=== PATIENT | male | born 1945 | race Caucasian/White ===

== ENCOUNTER → 2023-10-03 07:34 | Outpatient (REF) | payer MEDICARE, OTHER, SELFPAY | LOC: DHCBC/DCA 07:34 | PROVIDERS: ATTENDING PHYSICIAN Nurse Practitioner; FAMILY PHYSICIAN Family Medicine | DX: I25.10 Atherosclerotic heart disease of native coronary artery without angina pectoris (principal) | CPT/HCPCS: 78452; 93017; A9500; J2785 ==

== ENCOUNTER 2023-11-11 10:22 | Emergency (ER) | payer MEDICARE, OTHER, SELFPAY ==
[2023-11-11 10:24] VITALS: BP 128/88
--- NOTE | 2023-11-11 10:57 | ED.GENMED ---
History of Present Illness
General
Chief Complaint: Chest Pain
Time Seen by Provider: 11/11/23 10:23
Travel History
Have you had any contact with someone who has COVID-19?: No
Do you have any symptoms of coronavirus? Fever > 100 degrees, chills, cough, shortness of breath, sore throat, loss of taste or smell, muscle aches, or headache?: No
History of Present Illness
History of Present Illness:
78-year-old male with history of coronary artery disease (stent last placed in 2011) COPD, A-fib on Xarelto, hypertension, hyperlipidemia presents to the emergency department for evaluation of acute left-sided chest pain developing approximately 90
minutes prior to arrival. Pain is rated as severe, resolved after taking 1 dose of nitroglycerin and 324 mg of aspirin. Patient is asymptomatic.
Denies any recent fevers or chills. No shortness of breath, leg swelling, or chest pain with exertion. He did have a nuclear stress test performed in early September that was unremarkable for ischemia.
Past History
Past History
ED Past Medical History: Arrthythmia, CAD, HTN, Hypercholesterolemia, NIDDM and Other
ED Past Surgical History: Orthopedic and Other
Social History
Personal:
Living: with family
Review of Systems
Review of Systems
Allergies reviewed?: Yes
All Other Systems: ROS reviewed and negative except as documented in HPI and ROS
Phy Exam
Physical Exam
Physical Exam:
GEN: Well appearing, NAD, WDWN
Eyes: PERRLA, EOMs intact, no scleral icterus
HENT: NCAT, oral mucosa moist, no JVD, no cervical adenopathy.
Lungs: CTAB, no wheezes, rales, rhonchi, normal chest wall excursion
Cardiac: RRR, no M/R/G, 3+ pitting edema bilaterally extremities. Radial pulses 2+ bilat
Abdomen: S, NT, ND, NABS, no masses or hepatosplenomegaly
Neuro: AO x 3
MSK: No gross deformity or ecchymosis.
Skin: No rashes, petechiae. Normal color, no pallor or jaundice.
Psych: Calm, cooperative, proper hygiene
Scores
Heart Score for Chest Pain Patients
STEMI patient?: No
History: Slightly or Non-Suspicious
ECG: Nonspecific Repolarization
Age: >/= 65 years
Risk Factors: >/= 3 Risk Factors or History of CAD
Troponin: </= Normal Limit
Heart Score for Chest Pain Patients: 5
Heart Score Risk: 20.3% MACE over next 6 weeks
Course
Orders/Labs/Results
Orders:
Orders
11/11/23 10:27
EKG [Electrocardiogram (*1)] Urgent
Reason for Study: Chest Pain
11/11/23 10:28
EKG- Treatment ONCE
CR Chest - 2 Views Urgent
Comment:
Reason For Exam: chest pain
11/11/23 10:55
BNP [NT-proBNP] Urgent
Complete Blood Count/With Diff Urgent
Comprehensive Metabolic Panel Urgent
Troponin I Urgent
11/11/23 13:57
Troponin I Routine
Abnormal Lab Results
11/11/23
10:55
RBC 3.52 L 10^6/uL
(4.70-6.10)
Hgb 11.3 L g/dL
(13.0-18.0)
Hct 34.7 L %
(39.0-52.0)
MCV 98.6 H fL
(80.0-94.0)
MCH 32.1 H pg
(27.0-31.0)
MCHC 32.6 L g/dL
(33.0-37.0)
RDW 17.9 H %
(11.5-14.5)
MPV 10.8 H fL
(7.4-10.4)
Abs Immat Gran (auto) 0.1 H 10^3/uL
(0-0.05)
Absolute Lymphs (auto) 1.1 L 10^3/uL
(1.2-3.4)
Immature Gran % 1.1 H %
(0-0.5)
Neutrophils % 78.6 H %
(42.2-75.2)
Lymphocytes % 16.9 L %
(20.5-51.1)
Carbon Dioxide 31 H mmol/L
(22-30)
Glucose 150 H mg/dl
(70-99)
AST 142 H U/L
(17-59)
ALT 71 H U/L
(0-50)
Alkaline Phosphatase 154 H U/L
(38-126)
Total Protein 6.2 L g/dl
(6.3-8.2)
11/11/23 10:55
11/11/23 10:55
Vital Signs
Initial and Last Documented VS:
Initial Vital Signs
Temp Pulse Resp BP Pulse Ox
97.6 F 86 20 128/88 95
11/11/23 10:24 11/11/23 10:24 11/11/23 10:24 11/11/23 10:24 11/11/23 10:24
Last Documented Vital Signs
Temp Pulse Resp BP Pulse Ox
97.6 F 76 15 106/75 94
11/11/23 10:24 11/11/23 13:00 11/11/23 13:00 11/11/23 13:00 11/11/23 13:00
MDM/Problems Addressed
MDM/Problems Addressed:
78-year-old male presents with chest pain. Initial and repeat troponins as well as initial EKG are grossly unremarkable. The patient remained asymptomatic in the emergency department with no further measures administered. Is certainly reassuring
that he had a unremarkable stress test just over 1 month ago. Will refer him back to cardiology through the chest pain hotline for further ischemic workup as deemed appropriate.
Comment
Comment:
Initial EKG independently interpreted by me shows rate controlled atrial fibrillation at a rate of [address] changes concerning for ischemia, there is a right bundle branch block
*Critical Care Note
Total Time (30-74mins, 75-104mins- exclusive of procedures): Not Applicable
ED Attending Note
-
Portions of this chart may have been created with voice recognition software.� Occasional wrong word or��sound alike� substitutions may have occurred due to the inherent limitations of voice recognition software.
Discharge Plan
Departure
Patient Disposition: Home (Routine Discharge)
Date of Disposition: 11/11/23
Time of Disposition: 15:00
Patient with high blood pressure during this ER visit?: No
Discharge Problem:
Atypical chest pain
Instructions: Chest Pain CBC Follow Up
Prescriptions:
No Action
ascorbic acid (vitamin C) [Vitamin C] 1,000 MG tablet
1,000 mg PO QPM
tramadol 50 MG tablet
50 mg PO TID
nortriptyline 25 MG capsule
25 mg PO BID
prednisone 5 MG tablet
5 mg PO QPM
tamsulosin 0.4 MG capsule
0.4 mg PO HS
atorvastatin [Lipitor] 40 MG tablet
40 mg PO QPM
allopurinol 100 MG tablet
100 mg PO QPM
esomeprazole magnesium [Nexium] 20 MG capsule,delayed release(DR/EC)
20 mg PO DAILY
fluticasone propion-salmeterol [Advair Diskus] 1 DISK blister with device
1 puff inhalation R DAILY
finasteride 5 MG tablet
5 mg PO DAILY
metoprolol succinate [Toprol XL] 50 MG tablet extended release 24 hr
100 mg PO QPM
gabapentin [Neurontin] 800 MG tablet
800 mg PO TID
omega-3 acid ethyl esters [Lovaza] 1 GM capsule
1 gm PO TID
Xarelto 20 MG tablet
20 mg PO QPM Qty: 0 0RF
insulin glargine [Lantus U-100 Insulin] 100 UNIT/ML solution
62 unit SQ HS
lisinopril 20 MG tablet
10 mg PO HS
insulin lispro [Humalog KwikPen Insulin] 100 UNIT/ML insulin pen
34 unit SC ACHS
metformin 500 MG tablet
500 mg PO QPM
Patient Comments:
leucovorin calcium 10 mg Tablet
10 mg PO MO
aspirin 81 mg Tablet,Delayed Release (Dr/Ec)
81 mg PO QPM
methotrexate sodium 2.5 mg Tablet
12.5 mg PO SUMO
cephalexin 500 mg Capsule
500 mg PO BID
Rx Instructions:
patient [employer] on 04/07/2023 #20
cephalexin 500 mg capsule
1,000 mg PO TID 7 Days Qty: 42 0RF
Referrals:
Willie Robbins MD [Family Provider] -
Interventions
Interventions:
*Risk Screen - Suicide Last Done: 11/11/23 10:24
*General Assessment Last Done: 11/11/23 10:24
*Neglect/Abuse Screening Last Done: 11/11/23 10:24
ED- Fall Risk Assessment Last Done: 11/11/23 10:48
*ED COVID-19 Vaccine History Last Done: 11/11/23 10:24
ED- Cardiac Assessment Last Done: 11/11/23 10:49
[2023-11-11 11:07] LABS: % Basophils 0.2 % (0-2); % Immature Granulocytes 1.1 % (0-0.5); % Lymphocytes 16.9 % (20.5-51.1); % Monocytes 3.2 % (1.7-9.3); % Neutrophils 78.6 % (42.2-75.2); Absolute Immature Granulocytes 0.1 10^3/uL (0-0.05); Absolute Lymphocytes 1.1 10^3/uL (1.2-3.4); Absolute Monocytes 0.2 10^3/uL (0.1-0.6); Absolute Neutrophils 5.2 10^3/uL (1.4-6.5); Hematocrit 34.7 % (39.0-52.0); Hemoglobin 11.3 g/dL (13.0-18.0); Mean Corp Hgb Conc. 32.6 g/dL (33.0-37.0); Mean Corpuscular Hgb 32.1 pg (27.0-31.0); Mean Corpuscular Volume 98.6 fL (80.0-94.0); Mean Platelet Volume 10.8 fL (7.4-10.4); Nucleated Red Blood Cells % 0.5 % (-); Platelet Count 180 10^3/uL (130-400); Red Blood Cell Count 3.52 10^6/uL (4.70-6.10); Red Cell Dist. Width 17.9 % (11.5-14.5); White Blood Cell Count 6.6 10^3/uL (4.8-10.8)
[2023-11-11 11:22] LABS: ALT (SGPT) 71 U/L (0-50); AST (SGOT) 142 U/L (17-59); Albumin 3.5 g/dl (3.5-5.0); Alkaline Phosphatase 154 U/L (38-126); Blood Urea Nitrogen 15 mg/dl (9-20); Calcium 8.8 mg/dl (8.4-10.2); Carbon Dioxide 31 mmol/L (22-30); Chloride 100 mmol/L (98-107); Glucose 150 mg/dl (70-99); Potassium 4.3 mmol/L (3.5-5.1); Sodium 135 mmol/L (135-145); Total Bilirubin 0.9 mg/dl (0.2-1.3); Total Protein 6.2 g/dl (6.3-8.2); eGFR > 60.00
[2023-11-11 11:28] LABS: Troponin I < 0.012 ng/ml
[2023-11-11 11:54] LABS: NT-proBNP 316 pg/ml
[2023-11-11 12:54] VITALS: BP 98/62
[2023-11-11 13:00] VITALS: BP 106/75
[2023-11-11 14:00] VITALS: BP 119/65
[2023-11-11 14:58] LABS: Troponin I < 0.012 ng/ml
[2023-11-11 15:00] VITALS: BP 113/86
== END 2023-11-11 15:33 | disposition home or self-care (01) ==
LOC: EMR 10:22
PROVIDERS: Physician Assistant; EMERGENCY PHYSICIAN Emergency Medicine; FAMILY PHYSICIAN Family Medicine
DX: R07.89 Other chest pain (principal); I48.91 Unspecified atrial fibrillation; Z95.5 Presence of coronary angioplasty implant and graft
CPT/HCPCS: 99285; 71046; 80053; 83880; 84484; 85025; 93005

== ENCOUNTER 2024-06-05 18:08 | Inpatient (IN) | payer MEDICARE, OTHER, SELFPAY ==
[2024-06-05] VITALS (13 sets, daily range): BP systolic 104–157; BP diastolic 69–103; PULSE 91; BMI 42.5; BMI 48.5
--- NOTE | 2024-06-05 13:28 | ED.GENMED ---
History of Present Illness
General
Chief Complaint: Chest Pain
Time Seen by Provider: 06/05/24 13:28
History of Present Illness
History of Present Illness:
TIME OF INITIAL ENCOUNTER: 1:30 PM
HPI: The patient came in by ambulance. At around 10:30 AM today while he was waking up, he was having chest discomfort. He is not sure how long this lasted for. He did take his own nitroglycerin but did not think it really made much of a
difference with his pain. However currently as I am evaluating him at 1:40 PM, the patient has no pain. He never had any shortness of breath. He tells me that he was frequently in atrial fibrillation. He was hospitalized at [place] for left
lower extremity cellulitis. He is compliant with Xarelto but is unsure if he has been taking diltiazem.
EXAM:
GENERAL: Appears somewhat chronically ill but currently in no distress
HEENT: Moist oral mucosa
CARDIOVASCULAR: No murmurs, tachycardic heart rate, irregular rhythm, No chest wall tenderness
PULMONARY: No respiratory distress, breath sounds are clear and equal
ABDOMEN: Soft with no peritoneal signs, no tenderness
NEUROLOGIC: Excellent strength all extremities, no coordination deficits
PSYCHIATRIC: Appropriate mental status, normal insight and judgement
EXTREMITIES: Nontender, no edema, moves all extremities equally
SKIN: No rash, no lesions
NUMBER AND COMPLEXITY OF PROBLEMS ADDRESSED AT THE ENCOUNTER
� Chronic conditions affecting care: COPD on CPAP, JOHNNIE, A-fib, CAD, high blood pressure, hyperlipidemia, IDDM
� Acute Exacerbation and/or Progression of Chronic Illness:
� Differential Diagnosis includes:
AMOUNT AND/OR COMPLEXITY OF DATA TO BE REVIEWED AND ANALYZED
� I performed an independent evaluation of and my interpretation is:
EKG: A-fib, right bundle branch block, nonspecific ST abnormality
CT:
X-rays:
Laboratory Studies: White count normal, hemoglobin 10.8, initial troponin less than 0.012, glucose 202 but otherwise chemistries unremarkable
Other:
� Review of other/old records: I reviewed the notes that he brought in from his [employer] office, Dr. Palomares. The med list does include metoprolol succinate ER 100 mg daily and it was noted at that time that it is unclear
and the patient is also unclear if he is still taking diltiazem CD 120 mg daily. The patient was seen here with 'atypical chest pain' in October 2023 and was not admitted to the hospital at that time. I reviewed a nuclear stress test September 2023
which showed normal sestamibi perfusion imaging and was felt to be a low restudy however 'patient may be at moderate risk due to inability to exercise and 'may be at moderate risk due to inability to exercise and
� Clinical information was obtained by an independent historian: EMS notes
� Prescriptions/Medications Considered but not given:
� Further testing considered but not performed:
RISK OF COMPLICATIONS AND/OR MORBIDITY OR MORTALITY OF PATIENT MANAGEMENT
� Social determinants of health affecting care: Lives at home
� Discussion with other providers: At 2:40 PM, discussed case with Dr. Nathaniel llanos for [facility] cardiology�initially recommended resuming the diltiazem but unable to give further recommendations as the patient is are not
sure what medications he is taking.
� Escalation of care including admission/observation vs risk of discharge considered:
ANY OTHER UPDATES:
At 1:40 PM, heart rates frequently in the 120s to 130s�IV Cardizem has been ordered
At 2:40 PM, heart rates in the 80s to 100 range while on IV Cardizem drip.
At 3:40 PM, heart rates in the 90s, I spoke to the daughter over the phone who voiced concerned about him going home and feels that she should be observed. She is not sure if he is or is not taking the diltiazem and feels that he should be To see
how he responds to the Cardizem.
Past History
Past History
ED Past Medical History: Arrthythmia, CAD, HTN, Hypercholesterolemia, NIDDM and Other
ED Past Surgical History: Orthopedic and Other
Social History
Personal:
Living: with family
Phy Exam
Physical Exam
Physical Exam:
See HPI
Scores
Heart Score for Chest Pain Patients
STEMI patient?: Not applicable
Course
Orders/Labs/Results
Orders:
Orders
06/05/24 13:29
Electrocardiogram (*1) Urgent
Reason for Study: Chest Pain
Cardiac Monitoring- Treatment ONCE
EKG- Treatment ONCE
IV Insert/Care/Rem.- Treatment PRN
O2 Therapy [RESP] Urgent
Titrate/Wean O2 to maintain O2 sat greater than (%): 90
Special Instructions: Maintain sats >/=90%
Pulse Ox/spot Check [RESP] Urgent
Quantity: 1
Special Instructions: ON ROOM AIR
06/05/24 13:33
Basic Metabolic Panel Urgent
Complete Blood Count/With Diff Urgent
Troponin I Urgent
06/05/24 13:40
Diltiazem HCl [Cardizem] 10 mg IV NOW STA
06/05/24 13:45
Diltiazem 125 mg/125 ml Nss [Cardizem] 125 mg in 125 ml IV PER PROTOCOL
Initial dose in mg/hr, then titrate:: 5
Titrate to keep:: Heart rate 80-100 bpm
Titrate by mg/hr:: 5 mg/hr
Frequency of titrations (minutes):: 15
Maximum dose in mg/hr:: 15
06/05/24 13:50
CR Chest - 2 Views Urgent
Comment:
Reason For Exam: cp
06/05/24 15:07
Diltiazem Extended Release [Cardizem Cd] 120 mg PO NOW STA
06/05/24 16:40
Troponin I Urgent
Abnormal Lab Results
06/05/24
13:33
RBC 3.48 L 10^6/uL
(4.70-6.10)
Hgb 10.8 L g/dL
(13.0-18.0)
Hct 32.9 L %
(39.0-52.0)
MCV 94.5 H fL
(80.0-94.0)
MCHC 32.8 L g/dL
(33.0-37.0)
RDW 17.9 H %
(11.5-14.5)
MPV 10.9 H fL
(7.4-10.4)
Neutrophils % 76.3 H %
(42.2-75.2)
Monocytes % 1.4 L %
(1.7-9.3)
Glucose 202 H mg/dl
(70-99)
06/05/24 13:33
06/05/24 13:33
Vital Signs
Initial and Last Documented VS:
Initial Vital Signs
Pulse Resp Pulse Ox
121 15 96
06/05/24 13:30 06/05/24 13:30 06/05/24 13:30
Last Documented Vital Signs
Temp Pulse Resp BP Pulse Ox
99.2 F 97 20 104/69 97
06/05/24 13:33 06/05/24 16:15 06/05/24 16:15 06/05/24 15:00 06/05/24 16:15
*Critical Care Note
Total Time (30-74mins, 75-104mins- exclusive of procedures): Not Applicable
ED Attending Note
-
Portions of this chart may have been created with voice recognition software.� Occasional wrong word or��sound alike� substitutions may have occurred due to the inherent limitations of voice recognition software.
Discharge Plan
Departure
Patient Disposition: Admit
Date of Disposition: 06/05/24
Time of Disposition: 15:49
Presentation/result/management discussed w/ accepting MD/DO: Hospitalist
Discharge Problem:
Chest pain
Prescriptions:
No Action
ascorbic acid (vitamin C) [Vitamin C] 1,000 MG tablet
1,000 mg PO QPM
tramadol 50 MG tablet
50 mg PO Q6H
prednisone 5 MG tablet
5 mg PO QPM
tamsulosin 0.4 MG capsule
0.4 mg PO HS
atorvastatin [Lipitor] 40 MG tablet
40 mg PO QPM
allopurinol 100 MG tablet
100 mg PO QPM
finasteride 5 MG tablet
5 mg PO DAILY
gabapentin [Neurontin] 800 MG tablet
800 mg PO QID
omega-3 acid ethyl esters [Lovaza] 1 GM capsule
1 gm PO TID
Xarelto 20 MG tablet
20 mg PO QPM Qty: 0 0RF
insulin glargine [Lantus U-100 Insulin] 100 UNIT/ML solution
60 unit SQ HS
insulin lispro [Humalog KwikPen Insulin] 100 UNIT/ML insulin pen
20 sliding scale dose SC BID@0800,1200
Rx Instructions:
breakfast and lunch
metformin 500 MG tablet
500 mg PO DAILY
Patient Comments:
leucovorin calcium 10 mg Tablet
10 mg PO MO
Patient Comments:
06/05/24: take this 12 hours after monday dose of methotrexate
aspirin 81 mg Tablet,Delayed Release (Dr/Ec)
81 mg PO QPM
methotrexate sodium 2.5 mg Tablet
12.5 mg PO SUMO
metformin 500 mg Tablet
1,000 mg PO QPM
fluticasone propion-salmeterol [Advair Diskus] 250-50 mcg/dose Blister With Device
1 inh INHALATION R DAILY
metoprolol succinate 100 mg Tablet Extended Release 24 Hr
100 mg PO QPM
methenamine hippurate 1 gram Tablet
1 g PO QPM
esomeprazole magnesium 40 mg Capsule,Delayed Release(Dr/Ec)
40 mg PO DAILY
lisinopril 10 mg Tablet
10 mg PO HS
nortriptyline 50 mg Capsule
50 mg PO BID
insulin lispro [Humalog KwikPen Insulin] 100 unit/mL Insulin Pen
30 sliding scale dose SC QPM
duloxetine 60 mg Capsule,Delayed Release(Dr/Ec)
60 mg PO DAILY
Visbiome 112.5 billion cell Capsule
1 cap PO BID
cholecalciferol (vitamin D3) 1,250 mcg (50,000 unit) Tablet
1,250 mcg PO TUTH
bumetanide 1 mg Tablet
1 mg PO DAILYPRN PRN (Reason: leg swelling)
Interventions
Interventions:
*Risk Screen - Suicide Last Done: 06/05/24 13:39
*General Assessment Last Done: 06/05/24 13:39
*Neglect/Abuse Screening Last Done: 06/05/24 13:39
ED- Fall Risk Assessment Last Done: 06/05/24 13:41
*ED COVID-19 Vaccine History Last Done: 06/05/24 13:39
ED- Cardiac Assessment Last Done: 06/05/24 13:41
Discharge Date and Time
Print Language: LAO
[2024-06-05 13:40] LABS: % Basophils 0.4 % (0-2); % Eosinophils 0.1 % (0-6); % Immature Granulocytes 0.3 % (0-0.5); % Lymphocytes 21.5 % (20.5-51.1); % Monocytes 1.4 % (1.7-9.3); % Neutrophils 76.3 % (42.2-75.2); Absolute Lymphocytes 1.7 10^3/uL (1.2-3.4); Absolute Monocytes 0.1 10^3/uL (0.1-0.6); Hematocrit 32.9 % (39.0-52.0); Hemoglobin 10.8 g/dL (13.0-18.0); Mean Corp Hgb Conc. 32.8 g/dL (33.0-37.0); Mean Corpuscular Volume 94.5 fL (80.0-94.0); Mean Platelet Volume 10.9 fL (7.4-10.4); Nucleated Red Blood Cells % 0 % (-); Platelet Count 211 10^3/uL (130-400); Red Blood Cell Count 3.48 10^6/uL (4.70-6.10); Red Cell Dist. Width 17.9 % (11.5-14.5); White Blood Cell Count 7.8 10^3/uL (4.8-10.8)
[2024-06-05] MEDS: CARDIZEM 125 IV (13:46)
[2024-06-05] MEDS: CARDIZEM 10 MG IV (13:46)
[2024-06-05 13:58] LABS: Blood Urea Nitrogen 12 mg/dl (9-20); Calcium 8.6 mg/dl (8.4-10.2); Carbon Dioxide 28 mmol/L (22-30); Chloride 99 mmol/L (98-107); Estimated Creatinine Clearance 117 ml/min; Glucose 202 mg/dl (70-99); Sodium 137 mmol/L (135-145); eGFR > 60.00
[2024-06-05 14:05] LABS: Troponin I < 0.012 ng/ml
--- NOTE | 2024-06-05 16:13 | HPS.HSE ---
Family Physician
-
Family Physician: Willie Rojas [facility]
Chief Complaint
-
chest pressure afib
History of Present Illness
78-year-old male from home complaining of chest pain onset at 1030 this a.m. after waking up and trying to get out of bed. He reports it as a heaviness across his chest which she has been getting since October related to A-fib. He reports prior to
that he never really felt his A-fib. His daughter had him call 911 who advised him to take 4 chewable baby aspirin and he reports they told him to take 3 nitroglycerin tablets at once which He did. He was mildy hypotensive at 104/69. He reports the
chest pain self resolved after being here in the ER around 1:30 PM. His EKG showed A-fib with heart rate 130s .he was given diltiazem bolus with chronic drip. History of permanent A-fib on Xarelto and metoprolol 100 mg. He reports he has history
of multiple cardioversions and ablations which did not work in the past. He complains of dark urine over the past several days and no voiding today. He states he had history of UTIs in the past he does not complain of dysuria he denies headache,
sore throat, shortness of breath, cough, abdominal pain, nausea, vomiting, diarrhea, urinary symptoms. He has past medical history of permanent A-fib with multiple cardioversions/ablations, HTN, CAD status post cardiac stent, DM 2, HLD, leg
cellulitis with right lower extremity leg wound treated for the past year, chronic back pain, neuropathy, asthma, COPD, sleep apnea/CPAP nasal pillow with 3 L O2 setting 9, GERD, dysphagia, BPH/ UTI's , renal calculi, OA, RA, morbid obesity.
.
Medical History
Past Medical History
Past Medical History: Reports Other
Additional Past Medical History:
Permanent A-fib/A-flutter
HTN
CAD status post cardiac stent
DM2
HLD
Leg cellulitis
Chronic back pain
Neuropathy
Asthma
COPD
Sleep apnea/CPAP setting 9 o2 3 liters
Chronic home O2
GERD, dysphagia
BPH
renal calculi
OA
RA
Past Surgical History: Reports Other
Additional Past Surgical History:
Back surgery x 2
Reported ankle surgery
2 knee replacement
Cardiac cath x 2 cardiac stent
Cardioversions x 2 for permanent A-fib
Right hip replacement
Social History
Tobacco: Non-smoker
Alcohol: None
Drug: None
Personal:
Living: With Family (daugther )
Employment: Retired
Family History
Family History: Not pertinent
Allergies / Home Medications
Allergies reflects when Allergies were last updated in [email or web address].
Home Medications with original date entered in [email or web address]
Allergy/Medication List:
Allergies
Allergy/AdvReac Type Severity Reaction Status Date / Time
alprazolam [From Xanax] Allergy hieves, SOB Verified 11/11/23 10:54
amoxicillin [From Augmentin] Allergy Unknown Verified 11/11/23 10:54
celecoxib [From Celebrex] Allergy hives, SOB Verified 11/11/23 10:54
clarithromycin [From Biaxin] Allergy SOB, hives Verified 11/11/23 10:54
clavulanic acid Allergy Unknown Verified 11/11/23 10:54
[From Augmentin]
clindamycin HCl Allergy Hives, SOB Verified 11/11/23 10:54
[From Cleocin]
clindamycin palmitate HCl Allergy Hives, SOB Verified 11/11/23 10:54
[From Cleocin]
clindamycin phosphate Allergy Hives, SOB Verified 11/11/23 10:54
[From Cleocin]
famotidine [From Pepcid] Allergy hives SOB Verified 11/11/23 10:54
hydrocodone [From Vicodin] Allergy Unknown Verified 11/11/23 10:54
hydroxychloroquine sulfate Allergy hives, SOB Verified 11/11/23 10:54
[From Plaquenil]
iodine Allergy Unknown Verified 11/11/23 10:54
Penicillins Allergy Hives Verified 11/11/23 10:54
Sulfa (Sulfonamide Allergy Unknown Verified 11/11/23 10:54
Antibiotics)
contrast dye Allergy Hives Uncoded 11/11/23 10:54
Home Medications
ascorbic acid (vitamin C) 1,000 mg tablet (Vitamin C) 1,000 mg PO QPM 10/16/13
tramadol 50 mg tablet 50 mg PO TID 10/16/13
prednisone 5 mg tablet 5 mg PO QPM 12/23/14
tamsulosin 0.4 mg capsule 0.4 mg PO HS 12/23/14
allopurinol 100 mg tablet 100 mg PO QPM 07/01/19
atorvastatin 40 mg tablet (Lipitor) 40 mg PO QPM 07/01/19
finasteride 5 mg tablet 5 mg PO DAILY 07/22/19
gabapentin 800 mg tablet (Neurontin) 800 mg PO TID 07/22/19
omega-3 acid ethyl esters 1 gram capsule (Lovaza) 1 gm PO TID 07/22/19
rivaroxaban 20 mg tablet (Xarelto) 20 mg PO QPM ##0 07/22/19
insulin glargine 100 unit/mL subcutaneous solution (Lantus U-100 Insulin) 62 unit SQ HS 12/03/20
insulin lispro 100 unit/mL subcutaneous pen (Humalog KwikPen (U-100) Insulin) 34 unit SC ACHS 12/03/20
metformin 500 mg tablet 500 mg PO QPM 12/03/20
aspirin 81 mg tablet,delayed release 81 mg PO QPM 04/17/23
leucovorin calcium 10 mg tablet 10 mg PO MO 04/17/23
methotrexate sodium 2.5 mg tablet 12.5 mg PO SUMO 04/17/23
Lactobac no.2-Bifidobac no.1-S. thermo 112.5 billion cell capsule (Visbiome) 1 cap PO BID 06/05/24
bumetanide 1 mg tablet 1 mg PO DAILYPRN PRN leg swelling 06/05/24
cholecalciferol (vitamin D3) 1,250 mcg (50,000 unit) tablet 1,250 mcg PO TUTH 06/05/24
duloxetine 60 mg capsule,delayed release 60 mg PO DAILY 06/05/24
esomeprazole magnesium 40 mg capsule,delayed release 40 mg PO DAILY 06/05/24
fluticasone 250 mcg-salmeterol 50 mcg/dose blistr powdr for inhalation (Advair Diskus) 1 inh inhalation R DAILY 06/05/24
insulin lispro 100 unit/mL subcutaneous pen (Humalog KwikPen (U-100) Insulin) 30 sliding scale dose SC QPM 06/05/24
lisinopril 10 mg tablet 10 mg PO HS 06/05/24
metformin 500 mg tablet 1,000 mg PO QPM 06/05/24
methenamine hippurate 1 gram tablet 1 g PO QPM 06/05/24
metoprolol succinate 100 mg tablet,extended release 24 hr 100 mg PO QPM 06/05/24
nitroglycerin 0.4 mg sublingual tablet 0.4 mg sublingual [id number] PRN chest pain 06/05/24
nortriptyline 50 mg capsule 50 mg PO BID 06/05/24
Review of Systems
-
History Source: Patient
A 12 point ROS was completed and negative except as noted: Yes
Constitutional: Denies Fever, Fatigue or Chills
EENT: Denies Sore Throat or Runny Nose
Respiratory: Denies Cough, Hemoptysis or Trouble Breathing
Cardiac: Reports Chest Pain (Chest pressure across chest); Denies Diaphoresis, Palpitations or Syncope
Abdomen/GI: Denies Abdominal Pain, Nausea, Vomiting, Diarrhea, Constipated, Bloody Stools or Black Stools
: Reports Dark Urine (Past few days); Denies Dysuria, Frequency, Flank Pain or Incontinence
Musculoskeletal: Reports Edema (+1 bilateral legs with left lower extremity subtle blisters intact); Denies Joint Pain
Skin: Denies Itching or Rash
Neurological: Denies Dizzy, Headache or Weakness
Endocrine: Reports No Symptoms
Hematologic/Lymphatic: Reports No Symptoms
Psych: Reports Calm
Physical Exam
Vital Signs
Vital Signs
Temp Pulse Resp BP Pulse Ox
99.2 F 91 16 104/69 96
06/05/24 13:33 06/05/24 15:00 06/05/24 15:00 06/05/24 15:00 06/05/24 15:00
Physical Exam
Cardiac: S1/S2, Irregular Rhythm (A-fib) and Peripheral Edema (+1 bilateral legs with left lower extremity subtle blisters intact); No Murmur, Rub, Gallop, Calf Tenderness or JVD
Breast: Deferred by me
GI: Soft, Non Tender, Non Distended, Normal Bowel Sounds and No Hepatosplenomegaly
Rectal: Deferred by Provider
Genito-urinary: Deferred by me
Musculoskeletal: No Clubbing, No Cyanosis, Edema, Left Lower Extremity (+1 bilateral legs with left lower extremity subtle blisters intact 2/2 to edema) and Edema, Right Lower Extremity (+1 bilateral legs with left lower extremity subtle blisters
intact 2/ 2 edema ); No Edema, Left Upper Extremity or Edema, Right Upper Extremity
Skin: Warm and Dry; No Rash
Neuro: AO x 3, No Motor Deficits, Nonfocal/grossly intact, Cranial Nerves Intact and No Sensory Deficits; No Slurred Speech, Facial Droop or Tremors
Psych: Calm
Laboratory Results
-
06/05/24 13:33
06/05/24 13:33
Laboratory Results
Total Bilirubin Cancelled 06/05/24 13:33
AST Cancelled 06/05/24 13:33
ALT Cancelled 06/05/24 13:33
Alkaline Phosphatase Cancelled 06/05/24 13:33
Troponin I < 0.012 ng/ml 06/05/24 13:33
Impression/Plan
-
Impression/plan:
Admit to IMU
#A-fib with RVR/Hx permanent A-fib
-IV Cardizem bolus with drip
-Continue FACTORY HELPER Xarelto
-Per cardiology Dr. Armstrong recommended adding oral dose Cardizem ER 120 mg now and daily
-Hold metoprolol 100 mg
-Consult CBC cardiology
-PT/OT/case finisher consult
CXR: No acute cardiopulmonary process
EKG: A-fib with RVR 116 bpm, RBBB no significant change from November 11, 2023
#Chest pain�self resolved likely secondary to A-fib with RVR
-Troponin<0.012 will trend
Urinary hesitancy versus retention
-Check UA FORESTRY ENGINEER
-Bladder scan protocol
-
#PVD? Chronic peripheral edema concern overload
#Leg cellulitis hx/right lower extremity ulcer x 1 year recently resolved 3 weeks ago
+1 bilateral legs with left lower extremity subtle blisters intact
-Will apply Tubigrip dressings bilaterally
-Patient to be applying Aquaphor daily bilateral legs per prior wound care recommendations
-Check BNP
#Anemia macrocytic
Hgb 10.8 prior baseline 11�13
#HTN-benign
BP 104/69 >126/70
Hold metoprolol 100 mg daily
-Watch blood pressure as patient was started on oral Cardizem ER 120 mg
#CAD status post cardiac stent
-Continue Xarelto, Lipitor
#DM2
Accu-Cheks SSI, check HgbA1c
Continue Lantus 60 units at bedtime, Humalog 20 units a.m., 20 units lunch, 30 units dinner
#HLD
-Check lipid profile
#Chronic back pain
#Neuropathy
-Continue gabapentin
#Asthma-no acute exacerbation
#COPD-no acute exacerbation
#Sleep apnea/CPAP
#Chronic home O2
-Continue inhalers
#GERD/dysphagia hx
-Continue PPI
#BPH
-Continue tamsulosin 0.4 mg at bedtime with hold parameters
#Morbid obesity due to excess calorie consumption�BMI 43.4
-Weight loss recommended
-Affects aspects of care
-Low-fat, diabetic diet
-Advised patient to speak with PCP regarding alternative to Wegovy due to patient expressing cost was $900 a month
Other PMH:
Gout�continue allopurinol
Renal calculi
OA
RA-patient on methotrexate Monday
Dvt proph
- cont Xarelto
Full code
--- NOTE | 2024-06-05 17:07 | W.PN.UPDATE ---
Update Note
Progress Note Update
This is an addendum to H&P written by Litzy Castro on 06/05/2024. Patient seen and examined independent with PCI SECURITY CONSULTANT.
78-year-old male past medical history of Permanent A-fib/A-flutter, HTN, CAD status post cardiac stent, DM2, HLD, Leg cellulitis, Chronic back pain, Neuropathy, Asthma/ COPD, Sleep apnea/CPAP, Chronic home O2 3 L at night with CPAP, GERD, dysphagia,
BPH, renal calculi, OA, RA here for chest pain after which he took 3 nitroglycerin and became hypotensive. Normotensive here. Found to be in atrial fibrillation with RVR.
Troponin negative. EKG showing atrial fibrillation. Cardiology consulted. His bilateral lower extremity edema with edema blistering. Chest x-ray unremarkable. Check cardiac BNP. May require IV Lasix.
[2024-06-05 17:47] LABS: Urine Albumin Trace (Neg - Trace); Urine Bilirubin Negative (Negative); Urine Character Clear (Clear); Urine Color Yellow; Urine Glucose Negative (Negative); Urine Ketone Negative (Negative); Urine Leukocyte 2+ (Negative); Urine Nitrite Positive (Negative); Urine Occult Blood 1+ (Negative); Urine Urobilinogen Negative (Neg - 1+)
[2024-06-05 17:56] LABS: Urine Squamous Cell 0-2 /LPF (Few)
[2024-06-05 17:57] LABS: Urine Bacteria Many (Negative); Urine White Cell >100 /HPF (0-5)
[2024-06-05 18:16] LABS: NT-proBNP 416 pg/ml; Troponin I < 0.012 ng/ml
[2024-06-05 18:30] LABS: TSH Reflex To Free T4 1.78 uIU/ml (0.47-4.68)
--- NOTE | 2024-06-05 21:00 | PTCARENOTE ---
Pt received from ED RN. Pt in afib. Rate is controlled by Cardizem, current dose @ 5 mg/hr to maintain a HR between 80-100. Current Hr 100. Pt denies chest pain. Admission questions completed. Skin check completed with second RN. Call light in
reach.
[2024-06-05 21:53] LABS: Glucose - Point of Care 167 mg/dl (70-99)
[2024-06-05] MEDS: FLOMAX 0.4 MG PO (22:26)
[2024-06-05] MEDS: NEURONTIN 800 MG PO (22:26)
[2024-06-05] MEDS: DELTASONE 5 MG PO (22:26)
[2024-06-05] MEDS: VITAMIN C 1000 MG PO (22:26)
[2024-06-05] MEDS: ZYLOPRIM 100 MG PO (22:26)
[2024-06-05] MEDS: ASPIR LOW (ENTERIC COATED) 81 MG PO (22:27)
[2024-06-05] MEDS: LIPITOR 40 MG PO (22:27)
[2024-06-05] MEDS: XARELTO 20 MG PO (22:27)
[2024-06-05] MEDS: PAMELOR 50 MG PO (22:29)
[2024-06-05] MEDS: LANTUS 0.6 UNITS SC (22:58)
[2024-06-05 23:11] LABS: Glucose - Point of Care 176 mg/dl (70-99)
[2024-06-06] VITALS (18 sets, daily range): BP systolic 101–135; BP diastolic 58–100; PULSE 92–132; O2SAT 96; BMI 48.4
[2024-06-06] MEDS: ULTRAM 50 MG PO ×5 (00:31→23:23)
[2024-06-06 01:17] LABS: Troponin I < 0.012 ng/ml
[2024-06-06 06:09] LABS: Hematocrit 32.6 % (39.0-52.0); Hemoglobin 10.5 g/dL (13.0-18.0); Mean Corp Hgb Conc. 32.2 g/dL (33.0-37.0); Mean Corpuscular Hgb 30.9 pg (27.0-31.0); Mean Corpuscular Volume 95.9 fL (80.0-94.0); Mean Platelet Volume 10.5 fL (7.4-10.4); Platelet Count 205 10^3/uL (130-400); White Blood Cell Count 8.7 10^3/uL (4.8-10.8)
[2024-06-06 06:42] LABS: ALT (SGPT) 80 U/L (0-50); AST (SGOT) 75 U/L (17-59); Albumin 3.2 g/dl (3.5-5.0); Alkaline Phosphatase 146 U/L (38-126); Blood Urea Nitrogen 11 mg/dl (9-20); Calcium 8.6 mg/dl (8.4-10.2); Carbon Dioxide 30 mmol/L (22-30); Chloride 98 mmol/L (98-107); Estimated Creatinine Clearance 96 ml/min; Glucose 250 mg/dl (70-99); Potassium 4.9 mmol/L (3.5-5.1); Sodium 135 mmol/L (135-145); Total Bilirubin 0.8 mg/dl (0.2-1.3); Total Protein 5.9 g/dl (6.3-8.2); eGFR > 60.00
[2024-06-06 06:52] LABS: % Basophils 0.2 % (0-2); % Immature Granulocytes 0.6 % (0-0.5); % Lymphocytes 14.9 % (20.5-51.1); % Neutrophils 82.3 % (42.2-75.2); Absolute Immature Granulocytes 0.1 10^3/uL (0-0.05); Absolute Lymphocytes 1.3 10^3/uL (1.2-3.4); Absolute Monocytes 0.2 10^3/uL (0.1-0.6); Absolute Neutrophils 7.1 10^3/uL (1.4-6.5); Nucleated Red Blood Cells % 0 % (-)
[2024-06-06 08:04] LABS: Glucose - Point of Care 235 mg/dl (70-99)
[2024-06-06] MEDS: PROTONIX 40 MG PO (08:14)
[2024-06-06] MEDS: PAMELOR 50 MG PO ×2 (08:15→19:38)
[2024-06-06] MEDS: NEURONTIN 800 MG PO ×4 (08:15→21:48)
[2024-06-06] MEDS: PROSCAR 5 MG PO (08:15)
[2024-06-06] MEDS: CYMBALTA DELAYED RELEASE 60 MG PO (08:15)
--- NOTE | 2024-06-06 08:18 | PTCARENOTE ---
Pt is AAOx3 lungs are clear on ra at 96%. HR 84, bp 118/81 . Cardizem off Pt in AFIB
[2024-06-06] MEDS: ADVAIR HFA 115/21 MCG INHALER 2 PUFF INH ×2 (08:40→19:22)
[2024-06-06] MEDS: NOVOLOG FLEXPEN 20 UNITS SC ×2 (08:45→12:24)
[2024-06-06] MEDS: NOVOLOG FLEXPEN-LOW RESISTANCE 2 UNITS SC (08:45)
--- NOTE | 2024-06-06 09:28 | W.PN.HOSP.TC ---
Today's Communication/Plan
-
see outlined plan
Assessment / Plan
Assessment / Plan
Assessment:
Chest pain
hx of CAD s/p stent
- trop negative x 3
- ASA/Xarelto/Statin
Hx of Perm Afib with RVR
- s/p IV Cardizem drip
- PO Cardizem per Cardiology
- continue Xarelto
- CBC cards following
possible UTI with retention
- UA+ , culture pending
- BS/SC protocol
- start empiric Rocephin, day 1
Elevated LFTs
- check RUQ US
PVD with edema
LLE ulcers - healed
- wound care consult
- DVT study
Macrocytic anemia
- Hb stable
Essential HTN
- monitor BP on Cardizem
IDDM
- A1c 7.0
- continue Lantus and Humalog pre-meal, + SSI
HLD - continue statin
Chronic back pain
Neuropathy
- continue gabapentin
- L foot pain, check Xray
Asthma
COPD
JOHNNIE/BiPAP
- no acute exacerbation
- continue inhalers
GERD/dysphagia hx
- continue PPI
BPH
- continue tamsulosin 0.4 mg at bedtime with hold parameters
Morbid obesity due to excess calorie consumption�BMI 43.4
- Weight loss recommended
- Affects aspects of care
- Low-fat, diabetic diet
- Advised patient to speak with PCP regarding management
Gout - Allopurinol
Renal calculi
OA
RA
- patient on methotrexate Monday
DVT ppx: Xarelto
Code: Full
Anticipated Discharge: > 48 hours
Subjective/Interval History
-
Date of Service: June 06, 2024
HR more controlled this AM, Cardizem drip off
no active chest pain
Objective Data
-
Labs:
Laboratory Results
06/06/24
05:22
WBC 8.7
Hgb 10.5 L
Hct 32.6 L
Plt Count 205
Sodium 135
Potassium 4.9
Chloride 98
Carbon Dioxide 30
BUN 11
Creatinine 0.9
Glucose 250 H
Calcium 8.6
Total Bilirubin 0.8
AST 75 H
ALT 80 H
Alkaline Phosphatase 146 H
Vital Signs:
Vital Signs
Temp Pulse Resp BP Pulse Ox
97.7 F 87 16 131/82 96
06/06/24 07:30 06/06/24 07:30 06/06/24 07:30 06/06/24 07:26 06/06/24 07:30
I&O
06/05/24 06/06/24 06/07/24
06:59 06:59 06:59
Output Total 700 / 700
Balance -700 / -700
Physical Exam
-
General: No Apparent Distress and Obese
HEENT: Normocephalic and Atraumatic
Respiratory: Negative Wheezes
Cardiac: Irregular Rhythm and Tachycardic
GI: Soft and Nontender
Musculoskeletal: Edema, Right Lower Extrem and Edema, Left Lower Extrem
Neuro: AO x 3
Hematologic / Lymphatic: No Lymphadenopathy
Psych: Calm
Data Reviewed
-
Total Time Spent with Patient (in minutes): 44
Labs: Labs Reviewed by me
--- NOTE | 2024-06-06 10:18 | CON.CAR ---
Consultation
Consultation Request
Date/Time Consultation Requested: Jun 05 2024 1705
Date/Time Consultation Performed: Jun 06 2024 1000
Requesting Provider: hospitalist
Performing Provider: Karlo Garcia
Reason for Consultation: AF RVR CP
Medical History
-
Chief Complaint: Chest pain
History of Present Illness:
78-year-old male with past medical history of A-fib on Xarelto, hypertension, CAD status post LAD stenting, type 2 diabetes, dyslipidemia, neuropathy, COPD, morbid obesity, GERD, who is here for evaluation of chest heaviness. He was recently in the
hospital for cellulitis. Apparently, he was discharged just a day or 2 ago and yesterday when he was being evaluated by physical or occupational therapy he noticed chest discomfort. He described as a very mild chest heaviness. It lasted
approximately 1 hour. The resolved on its own. However, given his history and apparent elevated heart rates with this chest heaviness, the therapist and his daughter insisted he present to the emergency room. In talking with him today he does not
seem very concerned with this chest heaviness. He describes it as very mild and not too troublesome. I discussed given his CAD history that potential heart catheterization however, given his mild symptoms and the single occurrence we discussed
holding off for now. It is possible given his heart rates were in the 130s that this could have been contributing to his chest heaviness. Now that his heart rates are better controlled he does not have any.
Past Medical History
Past Medical History: Other (permanent A-fib with multiple cardioversions/ablations, HTN, CAD status post cardiac stent, DM 2, HLD, leg cellulitis with right lower extremity leg wound treated for the past year, chronic back pain, neuropathy, asthma,
COPD, sleep apnea/CPAP nasal pillow with 3 L O2 setting 9, GERD, dysphagia, BP)
Past Surgical History: Other (Back surgery x 2 Reported ankle surgery 2 knee replacement Cardiac cath x 2 cardiac stent Cardioversions x 2 for permanent A-fib Right hip replacement)
Social History
Tobacco: Non-Smoker
Alcohol: None
Drug: None
Personal:
Living: With Family
Employment: Retired
Family History
Family History: Reviewed & Not Pertinent
Allergies / Home Medications
Allergy/AdvReac Type Severity Reaction Status Date / Time
alprazolam [From Xanax] Allergy hieves, SOB Verified 11/11/23 10:54
amoxicillin [From Augmentin] Allergy Unknown Verified 11/11/23 10:54
celecoxib [From Celebrex] Allergy hives, SOB Verified 11/11/23 10:54
clarithromycin [From Biaxin] Allergy SOB, hives Verified 11/11/23 10:54
clavulanic acid Allergy Unknown Verified 11/11/23 10:54
[From Augmentin]
clindamycin HCl Allergy Hives, SOB Verified 11/11/23 10:54
[From Cleocin]
clindamycin palmitate HCl Allergy Hives, SOB Verified 11/11/23 10:54
[From Cleocin]
clindamycin phosphate Allergy Hives, SOB Verified 11/11/23 10:54
[From Cleocin]
famotidine [From Pepcid] Allergy hives SOB Verified 11/11/23 10:54
hydrocodone [From Vicodin] Allergy Unknown Verified 11/11/23 10:54
hydroxychloroquine sulfate Allergy hives, SOB Verified 11/11/23 10:54
[From Plaquenil]
Iodinated Contrast Media Allergy Hives Verified 06/05/24 20:35
Penicillins Allergy Hives Verified 11/11/23 10:54
Sulfa (Sulfonamide Allergy Unknown Verified 11/11/23 10:54
Antibiotics)
�Medication �Instructions �Recorded �Confirmed �Type
ascorbic acid (vitamin C) 1,000 mg 1,000 mg PO QPM Supplement 10/16/13 06/05/24 History
tablet (Vitamin C)
tramadol 50 mg tablet 50 mg PO Q6H Pain 10/16/13 06/05/24 History
prednisone 5 mg tablet 5 mg PO QPM Anti-Inflammatory 12/23/14 06/05/24 History
tamsulosin 0.4 mg capsule 0.4 mg PO HS Urinary Issue 12/23/14 06/05/24 History
allopurinol 100 mg tablet 100 mg PO QPM Gout 07/01/19 06/05/24 History
atorvastatin 40 mg tablet (Lipitor) 40 mg PO QPM High Cholesterol 07/01/19 06/05/24 History
finasteride 5 mg tablet 5 mg PO DAILY Urinary Issue 07/22/19 06/05/24 History
gabapentin 800 mg tablet 800 mg PO QID Neurological 07/22/19 06/05/24 History
(Neurontin) Condition
omega-3 acid ethyl esters 1 gram 1 gm PO TID Supplement 07/22/19 06/05/24 History
capsule (Lovaza)
rivaroxaban 20 mg tablet (Xarelto) 20 mg PO QPM ##0 07/22/19 06/05/24 Rx
insulin glargine 100 unit/mL 60 unit SQ HS Diabetes 12/03/20 06/05/24 History
subcutaneous solution (Lantus
U-100 Insulin)
insulin lispro 100 unit/mL 20 sliding scale dose SC 12/03/20 06/05/24 History
subcutaneous pen (Humalog KwikPen BID@0800,1200 Diabetes
(U-100) Insulin)
metformin 500 mg tablet 500 mg PO DAILY Diabetes 12/03/20 06/05/24 History
aspirin 81 mg tablet,delayed 81 mg PO QPM Blood Clot 04/17/23 06/05/24 History
release Prevention/Tx
leucovorin calcium 10 mg tablet 10 mg PO MO rheumatoid arthritis 04/17/23 06/05/24 History
methotrexate sodium 2.5 mg tablet 12.5 mg PO SUMO rheumatoid 04/17/23 06/05/24 History
arthritis
Lactobac no.2-Bifidobac no.1-S. 1 cap PO BID Gastrointestinal Issue 06/05/24 06/05/24 History
thermo 112.5 billion cell capsule
(Visbiome)
bumetanide 1 mg tablet 1 mg PO DAILYPRN PRN leg swelling 06/05/24 06/05/24 History
cholecalciferol (vitamin D3) 1,250 1,250 mcg PO TUTH Supplement 06/05/24 06/05/24 History
mcg (50,000 unit) tablet
duloxetine 60 mg capsule,delayed 60 mg PO DAILY Mental 06/05/24 06/05/24 History
release Health/Anxiety
esomeprazole magnesium 40 mg 40 mg PO DAILY Gastrointestinal 06/05/24 06/05/24 History
capsule,delayed release Issue
fluticasone 250 mcg-salmeterol 50 1 inh inhalation R DAILY 06/05/24 06/05/24 History
mcg/dose blistr powdr for Lung/Breathing Issues
inhalation (Advair Diskus)
insulin lispro 100 unit/mL 30 sliding scale dose SC QPM 06/05/24 06/05/24 History
subcutaneous pen (Humalog KwikPen Diabetes
(U-100) Insulin)
lisinopril 10 mg tablet 10 mg PO HS Blood Pressure 06/05/24 06/05/24 History
metformin 500 mg tablet 1,000 mg PO QPM Diabetes 06/05/24 06/05/24 History
methenamine hippurate 1 gram tablet 1 g PO QPM prophylaxis 06/05/24 06/05/24 History
metoprolol succinate 100 mg 100 mg PO QPM Heart 06/05/24 06/05/24 History
tablet,extended release 24 hr Disease/Condition
nitroglycerin 0.4 mg sublingual 0.4 mg sublingual [id number] PRN 06/05/24 06/05/24 History
tablet chest pain
nortriptyline 50 mg capsule 50 mg PO BID Neurological Condition 06/05/24 06/05/24 History
Review of Systems
-
All other systems: Negative unless noted
Physical Exam
Vital Signs
Temp Pulse Resp BP Pulse Ox
97.7 F 91 18 131/82 98
06/06/24 07:30 06/06/24 08:45 06/06/24 08:45 06/06/24 07:26 06/06/24 09:34
Lab Results
06/06/24 05:22
06/06/24 05:22
Troponin I < 0.012 ng/ml 06/06/24 00:45
Dol-B-Sftwpsqvzno Pept 416 pg/ml 06/05/24 17:34
Physical Exam
General: Well Developed, Well Nourished, No Apparent Distress and Comfortable
HEENT: Normocephalic and Anicteric
Respiratory: Clear and Non Labored Respirations
Cardiac: Irregular Rhythm and Other (distant heart sounds )
GI: Soft
Musculoskeletal: No Edema
Skin: Other (b/l LE edema )
Neuro: AO x 3
Psych: Calm
Impression / Plan
-
A: 78-year-old male with past medical history of A-fib on Xarelto, hypertension, CAD status post LAD stenting, type 2 diabetes, dyslipidemia, neuropathy, COPD, morbid obesity, GERD, who is here for evaluation of chest heaviness. The chest pain was
likely contributed to by being in AF RVR, especially given that with control of HRs the heaviness resolved. It has not returned either with controlled HRs. Additionally, ACS is less likely given normal troponins thus far.
AF RVR
- dilt gtt is off
- restarted home metoprolol, typically 100 daily, will start 50 mg bid
- can uptitrate as necessary, and add dilt if needed
- cont AC
Chest heaviness
- unclear cause, possibly related to AF RVR
- normal stress test Sep 2023
- normal trop
CAD
- cont aspirin statin
HTN
- stable
Dyslipidemia
- cont statin
DM2
Urinary hesitancy
- per primary
b/l LE erythema
- per primary
Data Reviewed
-
EKG: Tracing Personally Visualized and interpreted (af)
Medical Tests (Nuc Med, Echo etc): Image Personally Visualized and interpreted
Labs: Labs Reviewed by me
[2024-06-06] MEDS: TOPROL XL 50 MG PO ×2 (10:58→19:41)
--- NOTE | 2024-06-06 11:16 | CM ---
Met with patient at bedside; initial assessment and case management consult completed
Pharmacy verified: [facility] [address] [facility] [address]
Patient lives in a multilevel home; Daughter lives with him; daughter is an Manager R D, works at home; and is his primary caregiver; 3 steps to enter home via garage; 1st floor set up (large in-law suite); bath has walk-in stall shower with built in
bench; he uses a shower chair
PLOF: Retired; independent with personal care and medications; daughter prepares meals and does kayak maker; ambulates w/Rollator Does not drive much
DME: Rollator; CPAP; Oxygen concentrator 3 liter via NC at night only; Spinal cord stimulator; Dexcom Continuous Glucose Monitor
NO SNF history
Active w/ [facility] and will resume services when discharged; referral submitted via [facility]
Transport: Agreeable to [facility]. Per Attending, does not expect to discharge before Monday; Daughter and Son unable to transport home
Plan: Discharge to home when stable via [facility]; resumption of Home Health w/
[2024-06-06 11:45] LABS: Glucose - Point of Care 248 mg/dl (70-99)
[2024-06-06] MEDS: NOVOLOG FLEXPEN-HIGH RESISTANCE 4 UNITS SC (12:23)
[2024-06-06] MEDS: DRISDOL (VITAMIN D2) 50000 UNITS PO (12:25)
[2024-06-06] MEDS: ROCEPHIN 1000 MG IV (12:29)
[2024-06-06] MEDS: STERILE WATER FOR INJECTION 10 ML IV (12:30)
[2024-06-06] MEDS: NOVOLOG FLEXPEN-LOW RESISTANCE SC (12:32)
--- NOTE | 2024-06-06 13:39 | WOUNDNOTE ---
[facility] RN NOTE: Reviewed chart and met with patient and spoke to patients daughter Tiny. Patient had an traumatic injury to his right LE earlier this year. He has been following at [facility] and now leg is completely healed. Patient said he was
recently discharged from care and was instructed to moisturize legs daily. He reports using a rollator to ambulate and elevates his legs in recliner. He also uses compression with tubi fingernail technician at home. No open wounds noted, + venous stasis changes.
Awaiting ultrasound. Sacrum and heels intact. Plan is to use Aquaphor to legs daily. Patient and daughter agree to plan. MORGAN Hernandez updated. Will confirm orders with hospitalist. Will continue to follow as needed.
[2024-06-06] MEDS: HYDROPHOR 1 APPLIC TOPICAL (16:49)
[2024-06-06] MEDS: NOVOLOG FLEXPEN-HIGH RESISTANCE 10 UNITS SC (16:50)
[2024-06-06] MEDS: NOVOLOG FLEXPEN 30 UNITS SC (16:51)
[2024-06-06 17:04] LABS: Glucose - Point of Care 343 mg/dl (70-99)
[2024-06-06] MEDS: ASPIR LOW (ENTERIC COATED) 81 MG PO (17:16)
[2024-06-06] MEDS: XARELTO 20 MG PO (17:16)
[2024-06-06] MEDS: LIPITOR 40 MG PO (17:16)
[2024-06-06] MEDS: VITAMIN C 1000 MG PO (17:17)
[2024-06-06] MEDS: DELTASONE 5 MG PO (17:17)
[2024-06-06] MEDS: ZYLOPRIM 100 MG PO (17:17)
[2024-06-06] MEDS: LANTUS 0.6 UNITS SC (21:48)
[2024-06-06] MEDS: FLOMAX 0.4 MG PO (21:49)
[2024-06-06 21:54] LABS: Glucose - Point of Care 263 mg/dl (70-99)
[2024-06-07] VITALS (14 sets, daily range): BP systolic 90–121; BP diastolic 52–87; BMI 48.7
--- NOTE | 2024-06-07 01:38 | PTCARENOTE ---
Pt received from previous RN. Pt AAOx3. Making needs known. Pt remains in afib on monitor. Took HS meds whole with water. Pt npo after midnight. Pt using own CPAP from home. Call light in reach. Using urinal to void.
[2024-06-07] MEDS: ULTRAM 50 MG PO ×4 (05:03→23:14)
[2024-06-07 05:18] LABS: Glucose - Point of Care 317 mg/dl (70-99)
[2024-06-07 05:30] LABS: Hematocrit 33.2 % (39.0-52.0); Hemoglobin 10.9 g/dL (13.0-18.0); Mean Corp Hgb Conc. 32.8 g/dL (33.0-37.0); Mean Corpuscular Hgb 32.2 pg (27.0-31.0); Mean Corpuscular Volume 98.2 fL (80.0-94.0); Mean Platelet Volume 10.9 fL (7.4-10.4); Platelet Count 188 10^3/uL (130-400); Red Blood Cell Count 3.38 10^6/uL (4.70-6.10); Red Cell Dist. Width 17.7 % (11.5-14.5); White Blood Cell Count 8.2 10^3/uL (4.8-10.8)
[2024-06-07 05:52] LABS: ALT (SGPT) 65 U/L (0-50); AST (SGOT) 47 U/L (17-59); Albumin 3.2 g/dl (3.5-5.0); Alkaline Phosphatase 136 U/L (38-126); Blood Urea Nitrogen 13 mg/dl (9-20); Calcium 8.7 mg/dl (8.4-10.2); Carbon Dioxide 29 mmol/L (22-30); Chloride 95 mmol/L (98-107); Estimated Creatinine Clearance 108 ml/min; Glucose 267 mg/dl (70-99); Potassium 4.9 mmol/L (3.5-5.1); Sodium 135 mmol/L (135-145); Total Bilirubin 0.5 mg/dl (0.2-1.3); Total Protein 6.1 g/dl (6.3-8.2); eGFR > 60.00
[2024-06-07] MEDS: ADVAIR HFA 115/21 MCG INHALER 2 PUFF INH ×2 (08:00→19:41)
[2024-06-07 08:11] LABS: Glucose - Point of Care 263 mg/dl (70-99)
[2024-06-07] MEDS: NOVOLOG FLEXPEN-HIGH RESISTANCE 7 UNITS SC (08:27)
[2024-06-07] MEDS: NEURONTIN 800 MG PO ×4 (08:28→20:15)
[2024-06-07] MEDS: PROSCAR 5 MG PO (08:28)
[2024-06-07] MEDS: PROTONIX 40 MG PO (08:28)
[2024-06-07] MEDS: TOPROL XL 50 MG PO ×2 (08:28→20:14)
[2024-06-07] MEDS: PAMELOR 50 MG PO ×2 (08:28→20:14)
[2024-06-07] MEDS: CYMBALTA DELAYED RELEASE 60 MG PO (08:28)
[2024-06-07] MEDS: HYDROPHOR 1 APPLIC TOPICAL (08:29)
--- NOTE | 2024-06-07 10:42 | W.PN.CD ---
Today's Communication / Plan
-
Cont metop XL 50 bid
We will sign off please call with questions/concerns.
Impression / Plan
-
A: 78-year-old male with past medical history of A-fib on Xarelto, hypertension, CAD status post LAD stenting, type 2 diabetes, dyslipidemia, neuropathy, COPD, morbid obesity, GERD, who is here for evaluation of chest heaviness. He has remained CP
free now that his HRs are controlled.
AF RVR now controled
- cont metop XL 50 bid, HRs appear better controlled on this
- can uptitrate as necessary, and add dilt if needed
- cont AC
Chest heaviness
- continue to monitor
CAD
- cont aspirin statin
HTN
- stable
Dyslipidemia
- cont statin
DM2
Urinary hesitancy
- per primary
b/l LE erythema
- per primary
Physical Exam
Vital Signs/Labs
Vital Signs
Temp Pulse Resp BP Pulse Ox
97.6 F 87 19 93/52 97
06/07/24 04:58 06/07/24 10:30 06/07/24 10:30 06/07/24 10:00 06/07/24 10:30
06/06/24 06/07/24 06/08/24
06:59 06:59 06:59
Actual Weight 327 lb 13.238 oz 329 lb 9.457 oz
06/07/24 04:43
06/07/24 04:43
06/05/24
17:34
[id number] Pept 416
LAB Results
06/05/24 06/05/24 06/05/24
13:33 17:34 22:00
Troponin I < 0.012 < 0.012 Cancelled
06/06/24
00:45
Troponin I < 0.012
Physical Exam
Constitutional: No acute distress and Comfortable
EENT: Anicteric
Cardiovascular: Pedal edema is absent and Rhythm/rate is irregular
Respiratory: Respiratory effort normal and Lungs clear to auscul.
GI: Soft
Neuro/Psych: AO x 3
Data Reviewed
-
Date of Service: June 07, 2024
EKG: Tracing Personally Visualized and interpreted (af)
Labs: Labs Reviewed by me
[2024-06-07] MEDS: NOVOLOG FLEXPEN SC (11:13)
[2024-06-07] MEDS: STERILE WATER FOR INJECTION 10 ML IV ×2 (11:15→17:18)
[2024-06-07] MEDS: MAXIPIME 1000 MG IV ×2 (11:15→17:18)
[2024-06-07] MEDS: NOVOLOG FLEXPEN 20 UNITS SC (11:32)
[2024-06-07] MEDS: NOVOLOG FLEXPEN-HIGH RESISTANCE 4 UNITS SC ×2 (11:33→17:16)
[2024-06-07 11:42] LABS: Glucose - Point of Care 235 mg/dl (70-99)
--- NOTE | 2024-06-07 13:39 | W.PN.HOSP.TC ---
Today's Communication/Plan
-
IV Abx
rate control
PT/OT
Assessment / Plan
Assessment / Plan
Assessment:
Chest pain
hx of CAD s/p stent
- trop negative x 3
- ASA/Xarelto/Statin
Hx of Perm Afib with RVR
- s/p IV Cardizem drip
- continue PO BB
- continue Xarelto
- CBC cards signed off, OP f/u
multi-drug resistant Serratia Marcescens UTI
- complex decision making with review of urine culture; for now will transition to Cefepime, day 15. Likely will finish treatment in hospital prior to DC. Culture sensitive to Bactrim but patient with Sulfa allergy, also intermediate susceptibility
to FQs but prolonged QTc. No data for fosfomycin. discussed with ID pharmacist.
- BS/SC protocol
Elevated LFTs
- RUQ US: confirms Hepatic fatty infiltration
PVD with edema, chronic venous stasis changes
LLE ulcers - healed
- wound care recs appreciated
- DVT study negative
Macrocytic anemia
- Hb stable
Essential HTN
- monitor BP on Cardizem
IDDM
- A1c 7.0
- continue Lantus and Humalog pre-meal, + SSI
HLD - continue statin
Chronic back pain
Neuropathy
- continue gabapentin
- Xray: Subacute appearing probable fracture of the proximal phalanx of the left fifth digit.
- OP Podiatry f/u
Asthma
COPD
JOHNNIE/BiPAP
- no acute exacerbation
- continue inhalers
GERD/dysphagia hx
- continue PPI
BPH
- continue tamsulosin 0.4 mg at bedtime with hold parameters
Morbid obesity due to excess calorie consumption�BMI 43.4
- Weight loss recommended
- Affects aspects of care
- Low-fat, diabetic diet
- Advised patient to speak with PCP regarding management
Gout - Allopurinol
Renal calculi
OA
RA
- patient on methotrexate Monday
DVT ppx: Xarelto
Code: Full
Anticipated Discharge: > 48 hours
Subjective/Interval History
-
Date of Service: June 07, 2024
denies any new complaints at present
Objective Data
-
Labs:
Laboratory Results
06/07/24
04:43
WBC 8.2
Hgb 10.9 L
Hct 33.2 L
Plt Count 188
Sodium 135
Potassium 4.9
Chloride 95 L
Carbon Dioxide 29
BUN 13
Creatinine 0.8
Glucose 267 H
Calcium 8.7
Total Bilirubin 0.5
AST 47
ALT 65 H
Alkaline Phosphatase 136 H
Vital Signs:
Vital Signs
Temp Pulse Resp BP Pulse Ox
97.6 F 95 17 97/60 95
06/07/24 04:58 06/07/24 12:15 06/07/24 12:15 06/07/24 12:00 06/07/24 12:15
I&O
06/06/24 06/07/24 06/08/24
06:59 06:59 06:59
Output Total 700 / 700 1350 / 1350 725 / 725
Balance -700 / -700 -1350 / -1350 -725 / -725
Physical Exam
-
General: No Apparent Distress
HEENT: Normocephalic and Atraumatic
Respiratory: Negative Wheezes
Cardiac: Regular Rhythm, S1/S2 and Irregular Rhythm
GI: Soft and Nontender
Musculoskeletal: No Edema
Neuro: AO x 3
Hematologic / Lymphatic: No Lymphadenopathy
Psych: Calm
Data Reviewed
-
Total Time Spent with Patient (in minutes): 42
Labs: Labs Reviewed by me
--- NOTE | 2024-06-07 15:09 | PTCARENOTE ---
Assumed care of patient at beginning of this shift from previous RN. Initially NPO for US abdomen; morning mealtime insulin not given, however sliding scale coverage administered as ordered. Patient ordered a breakfast meal for lunch but stated he
would not be ordering another lunch, so only the lunchtime insulin given along with the sliding scale coverage. OOB to chair x1 assist. See worklist for full assessment and vital signs; see MAR for med administration.
[2024-06-07] MEDS: NOVOLOG FLEXPEN 35 UNITS SC (17:16)
[2024-06-07] MEDS: ASPIR LOW (ENTERIC COATED) 81 MG PO (17:17)
[2024-06-07] MEDS: VITAMIN C 1000 MG PO (17:17)
[2024-06-07] MEDS: LIPITOR 40 MG PO (17:17)
[2024-06-07] MEDS: ZYLOPRIM 100 MG PO (17:18)
[2024-06-07] MEDS: XARELTO 20 MG PO (17:18)
[2024-06-07] MEDS: DELTASONE 5 MG PO (17:18)
[2024-06-07 17:19] LABS: Glucose - Point of Care 228 mg/dl (70-99)
[2024-06-07] MEDS: FLOMAX 0.4 MG PO (20:14)
[2024-06-07] MEDS: LANTUS 0.65 UNITS SC (20:15)
[2024-06-07 20:24] LABS: Glucose - Point of Care 232 mg/dl (70-99)
[2024-06-08] VITALS (13 sets, daily range): BP systolic 108–145; BP diastolic 52–104; PULSE 75; BMI 48.5
[2024-06-08] MEDS: MAXIPIME 1000 MG IV ×3 (02:00→17:08)
[2024-06-08] MEDS: STERILE WATER FOR INJECTION 10 ML IV ×3 (02:00→17:09)
[2024-06-08 04:43] LABS: Hematocrit 37.8 % (39.0-52.0); Hemoglobin 12.2 g/dL (13.0-18.0); Mean Corp Hgb Conc. 32.3 g/dL (33.0-37.0); Mean Corpuscular Hgb 31.9 pg (27.0-31.0); Mean Corpuscular Volume 98.7 fL (80.0-94.0); Mean Platelet Volume 10.8 fL (7.4-10.4); Platelet Count 191 10^3/uL (130-400); Red Blood Cell Count 3.83 10^6/uL (4.70-6.10); Red Cell Dist. Width 17.6 % (11.5-14.5); White Blood Cell Count 9.2 10^3/uL (4.8-10.8)
[2024-06-08 05:05] LABS: ALT (SGPT) 59 U/L (0-50); AST (SGOT) 37 U/L (17-59); Albumin 3.7 g/dl (3.5-5.0); Alkaline Phosphatase 143 U/L (38-126); Blood Urea Nitrogen 16 mg/dl (9-20); Calcium 9.1 mg/dl (8.4-10.2); Carbon Dioxide 29 mmol/L (22-30); Chloride 96 mmol/L (98-107); Estimated Creatinine Clearance 108 ml/min; Glucose 214 mg/dl (70-99); Potassium 5.3 mmol/L (3.5-5.1); Sodium 138 mmol/L (135-145); Total Bilirubin 0.4 mg/dl (0.2-1.3); Total Protein 6.8 g/dl (6.3-8.2); eGFR > 60.00
[2024-06-08] MEDS: ULTRAM 50 MG PO ×4 (05:30→23:15)
--- NOTE | 2024-06-08 06:34 | PTCARENOTE ---
NO acute events overnight. Afebrile. Remains in afib- rate controlled.
[2024-06-08 08:07] LABS: Glucose - Point of Care 241 mg/dl (70-99)
[2024-06-08] MEDS: ADVAIR HFA 115/21 MCG INHALER 2 PUFF INH ×2 (08:07→19:57)
[2024-06-08] MEDS: NOVOLOG FLEXPEN-HIGH RESISTANCE 4 UNITS SC ×2 (08:37→12:28)
[2024-06-08] MEDS: NOVOLOG FLEXPEN 25 UNITS SC ×2 (08:38→12:28)
[2024-06-08] MEDS: NEURONTIN 800 MG PO ×4 (08:40→20:12)
[2024-06-08] MEDS: PROTONIX 40 MG PO (08:40)
[2024-06-08] MEDS: TOPROL XL 50 MG PO ×2 (08:40→20:13)
[2024-06-08] MEDS: CYMBALTA DELAYED RELEASE 60 MG PO (08:40)
[2024-06-08] MEDS: PROSCAR 5 MG PO (08:40)
[2024-06-08] MEDS: HYDROPHOR 1 APPLIC TOPICAL (08:41)
[2024-06-08] MEDS: PAMELOR 50 MG PO ×2 (08:41→20:12)
[2024-06-08 12:07] LABS: Glucose - Point of Care 242 mg/dl (70-99)
--- NOTE | 2024-06-08 15:43 | W.PN.HOSP.TC ---
Today's Communication/Plan
-
continue IV Abx
Assessment / Plan
Assessment / Plan
Assessment:
Chest pain
hx of CAD s/p stent
- trop negative x 3
- ASA/Xarelto/Statin
Hx of Perm Afib with RVR
- s/p IV Cardizem drip
- continue PO BB
- continue Xarelto
- CBC cards signed off, OP f/u
multi-drug resistant Serratia Marcescens UTI
- complex decision making with review of urine culture; for now will transition to Cefepime, day 2/5. Likely will finish treatment in hospital prior to DC (last dose Monday). Culture sensitive to Bactrim but patient with Sulfa allergy, also
intermediate susceptibility to FQs but prolonged QTc. No data for fosfomycin. discussed with ID pharmacist.
- BS/SC protocol
Elevated LFTs
- RUQ US: confirms Hepatic fatty infiltration
PVD with edema, chronic venous stasis changes
LLE ulcers - healed
- wound care recs appreciated
- DVT study negative
Macrocytic anemia
- Hb stable
Essential HTN
- monitor BP on Cardizem
IDDM
- A1c 7.0
- continue Lantus and Humalog pre-meal, + SSI
HLD - continue statin
Chronic back pain
Neuropathy
- continue gabapentin
- Xray: Subacute appearing probable fracture of the proximal phalanx of the left fifth digit.
- OP Podiatry f/u
Asthma
COPD
JOHNNIE/BiPAP
- no acute exacerbation
- continue inhalers
GERD/dysphagia hx
- continue PPI
BPH
- continue tamsulosin 0.4 mg at bedtime with hold parameters
Morbid obesity due to excess calorie consumption�BMI 43.4
- Weight loss recommended
- Affects aspects of care
- Low-fat, diabetic diet
- Advised patient to speak with PCP regarding management
Gout - Allopurinol
Renal calculi
OA
RA
- patient on methotrexate Monday
DVT ppx: Xarelto
Code: Full
Anticipated Discharge: > 48 hours
Subjective/Interval History
-
Date of Service: June 08, 2024
denies any new complaints at present
Objective Data
-
Labs:
Laboratory Results
06/08/24
04:12
WBC 9.2
Hgb 12.2 L
Hct 37.8 L
Plt Count 191
Sodium 138
Potassium 5.3 H
Chloride 96 L
Carbon Dioxide 29
BUN 16
Creatinine 0.8
Glucose 214 H
Calcium 9.1
Total Bilirubin 0.4
AST 37
ALT 59 H
Alkaline Phosphatase 143 H
Vital Signs:
Vital Signs
Temp Pulse Resp BP Pulse Ox
97.4 F 74 12 123/78 96
06/08/24 11:26 06/08/24 10:00 06/08/24 10:00 06/08/24 10:00 06/08/24 10:14
I&O
06/07/24 06/08/24 06/09/24
06:59 06:59 06:59
Intake Total 240 / 240
Output Total 1350 / 1350 1974 / 1974 500 / 500
Balance -1350 / -1350 -1735 / -1735 -500 / -500
Physical Exam
-
General: No Apparent Distress
HEENT: Normocephalic and Atraumatic
Respiratory: Negative Wheezes
Cardiac: Irregular Rhythm
GI: Soft
Musculoskeletal: No Edema
Neuro: AO x 3
Hematologic / Lymphatic: No Lymphadenopathy
Psych: Calm
Data Reviewed
-
Total Time Spent with Patient (in minutes): 45
Labs: Labs Reviewed by me
[2024-06-08] MEDS: NOVOLOG FLEXPEN-HIGH RESISTANCE 2 UNITS SC (16:58)
[2024-06-08] MEDS: NOVOLOG FLEXPEN 35 UNITS SC (16:58)
[2024-06-08] MEDS: ASPIR LOW (ENTERIC COATED) 81 MG PO (17:09)
[2024-06-08] MEDS: ZYLOPRIM 100 MG PO (17:10)
[2024-06-08] MEDS: DELTASONE 5 MG PO (17:10)
[2024-06-08] MEDS: LIPITOR 40 MG PO (17:11)
[2024-06-08] MEDS: VITAMIN C 1000 MG PO (17:11)
[2024-06-08] MEDS: XARELTO 20 MG PO (17:11)
[2024-06-08 17:12] LABS: Glucose - Point of Care 189 mg/dl (70-99)
[2024-06-08] MEDS: FLOMAX 0.4 MG PO (20:13)
[2024-06-08] MEDS: LANTUS 0.65 UNITS SC (20:13)
[2024-06-08 20:23] LABS: Glucose - Point of Care 130 mg/dl (70-99)
[2024-06-09] VITALS (13 sets, daily range): BP systolic 109–142; BP diastolic 71–114; BMI 48.5
[2024-06-09] MEDS: STERILE WATER FOR INJECTION 10 ML IV ×3 (02:48→17:07)
[2024-06-09] MEDS: MAXIPIME 1000 MG IV ×3 (02:48→17:07)
[2024-06-09 04:23] LABS: Hematocrit 34.9 % (39.0-52.0); Hemoglobin 11.1 g/dL (13.0-18.0); Mean Corp Hgb Conc. 31.8 g/dL (33.0-37.0); Mean Corpuscular Hgb 31.5 pg (27.0-31.0); Mean Corpuscular Volume 99.1 fL (80.0-94.0); Mean Platelet Volume 10.5 fL (7.4-10.4); Platelet Count 188 10^3/uL (130-400); Red Blood Cell Count 3.52 10^6/uL (4.70-6.10); Red Cell Dist. Width 17.9 % (11.5-14.5)
[2024-06-09 04:40] LABS: ALT (SGPT) 47 U/L (0-50); AST (SGOT) 32 U/L (17-59); Albumin 3.5 g/dl (3.5-5.0); Alkaline Phosphatase 123 U/L (38-126); Blood Urea Nitrogen 21 mg/dl (9-20); Calcium 9.1 mg/dl (8.4-10.2); Carbon Dioxide 31 mmol/L (22-30); Chloride 97 mmol/L (98-107); Estimated Creatinine Clearance 96 ml/min; Glucose 196 mg/dl (70-99); Potassium 5.5 mmol/L (3.5-5.1); Sodium 136 mmol/L (135-145); Total Bilirubin 0.3 mg/dl (0.2-1.3); Total Protein 6.4 g/dl (6.3-8.2); eGFR > 60.00
[2024-06-09] MEDS: ULTRAM 50 MG PO ×4 (05:06→23:28)
--- NOTE | 2024-06-09 06:16 | PTCARENOTE ---
No acute events overnight. Remains in controlled afib.
[2024-06-09] MEDS: ADVAIR HFA 115/21 MCG INHALER 2 PUFF INH ×2 (07:38→20:11)
[2024-06-09 08:17] LABS: Glucose - Point of Care 165 mg/dl (70-99)
[2024-06-09] MEDS: NOVOLOG FLEXPEN-HIGH RESISTANCE 2 UNITS SC (08:17)
[2024-06-09] MEDS: NOVOLOG FLEXPEN 25 UNITS SC ×2 (08:18→12:45)
[2024-06-09] MEDS: PROSCAR 5 MG PO (08:19)
[2024-06-09] MEDS: TOPROL XL 50 MG PO ×2 (08:19→20:35)
[2024-06-09] MEDS: CYMBALTA DELAYED RELEASE 60 MG PO (08:20)
[2024-06-09] MEDS: PAMELOR 50 MG PO ×2 (08:20→20:35)
[2024-06-09] MEDS: NEURONTIN 800 MG PO ×4 (08:20→20:35)
[2024-06-09] MEDS: PROTONIX 40 MG PO (08:20)
[2024-06-09] MEDS: HYDROPHOR 1 APPLIC TOPICAL (08:20)
[2024-06-09] MEDS: LOKELMA 10 GRAM PO (08:38)
--- NOTE | 2024-06-09 11:22 | PTCARENOTE ---
Pt sent to US via stretcher on monitir with rebekah
[2024-06-09] MEDS: NOVOLOG FLEXPEN-HIGH RESISTANCE 4 UNITS SC ×2 (12:44→16:44)
[2024-06-09 12:46] LABS: Glucose - Point of Care 218 mg/dl (70-99)
--- NOTE | 2024-06-09 13:28 | W.PN.HOSP.TC ---
Today's Communication/Plan
-
continue IV abx through Monday evening then discharge
Assessment / Plan
Assessment / Plan
Assessment:
Chest pain
hx of CAD s/p stent
- trop negative x 3
- ASA/Xarelto/Statin
Hx of Perm Afib with RVR
- s/p IV Cardizem drip
- continue PO BB
- continue Xarelto
- CBC cards signed off, OP f/u
multi-drug resistant Serratia Marcescens UTI
- complex decision making with review of urine culture; for now will transition to Cefepime, day 2/. Likely will finish treatment in hospital prior to DC (last dose Monday). Culture sensitive to Bactrim but patient with Sulfa allergy, also
intermediate susceptibility to FQs but prolonged QTc. No data for fosfomycin. discussed with ID pharmacist.
- BS/SC protocol
Elevated LFTs
- RUQ US: confirms Hepatic fatty infiltration
PVD with edema, chronic venous stasis changes
LLE ulcers - healed
- wound care recs appreciated
- DVT study negative
Macrocytic anemia
- Hb stable
Essential HTN
- monitor BP on Cardizem
IDDM
- A1c 7.0
- continue Lantus and Humalog pre-meal, + SSI
HLD - continue statin
Chronic back pain
Neuropathy
- continue gabapentin
- X:ray: Subacute appearing probable fracture of the proximal phalanx of the left fifth digit.
- OP Podiatry f/u
Asthma
COPD
JOHNNIE/BiPAP
- no acute exacerbation
- continue inhalers
GERD/dysphagia hx
- continue PPI
BPH
- continue tamsulosin 0.4 mg at bedtime with hold parameters
Morbid obesity due to excess calorie consumption�BMI 43.4
- Weight loss recommended
- Affects aspects of care
- Low-fat, diabetic diet
- Advised patient to speak with PCP regarding management
Gout - Allopurinol
Renal calculi
OA
RA
- patient on methotrexate Monday
DVT ppx: Xarelto
Code: Full
Anticipated Discharge: > 48 hours
Subjective/Interval History
-
Date of Service: June 09, 2024
no chest pain
HR stable
no other complaints
Objective Data
-
Labs:
Laboratory Results
06/09/24
03:56
WBC 7.0
Hgb 11.1 L
Hct 34.9 L
Plt Count 188
Sodium 136
Potassium 5.5 H
Chloride 97 L
Carbon Dioxide 31 H
BUN 21 H
Creatinine 0.9
Glucose 196 H
Calcium 9.1
Total Bilirubin 0.3
AST 32
ALT 47
Alkaline Phosphatase 123
Vital Signs:
Vital Signs
Temp Pulse Resp BP Pulse Ox
97.7 F 71 12 120/98 96
06/09/24 11:03 06/09/24 12:00 06/09/24 12:00 06/09/24 12:00 06/09/24 10:03
I&O
06/08/24 06/09/24 06/10/24
06:59 06:59 06:59
Intake Total 240 / 240
Output Total 1974 900 / 900
Balance -1735 / -1735 -900 / -900
Physical Exam
-
General: No Apparent Distress
HEENT: Normocephalic and Atraumatic
Respiratory: Clear to Auscultation; Negative Wheezes or Rales
Cardiac: Irregular Rhythm
Genito-urinary: No Costovertebral Tender
Neuro: AO x 3
Psych: Calm
Data Reviewed
-
Total Time Spent with Patient (in minutes): 41
Labs: Labs Reviewed by me
[2024-06-09] MEDS: NOVOLOG FLEXPEN 35 UNITS SC (16:45)
[2024-06-09 16:59] LABS: Glucose - Point of Care 208 mg/dl (70-99)
[2024-06-09] MEDS: XARELTO 20 MG PO (17:08)
[2024-06-09] MEDS: ASPIR LOW (ENTERIC COATED) 81 MG PO (17:09)
[2024-06-09] MEDS: ZYLOPRIM 100 MG PO (17:09)
[2024-06-09] MEDS: LIPITOR 40 MG PO (17:10)
[2024-06-09] MEDS: VITAMIN C 1000 MG PO (17:10)
[2024-06-09] MEDS: DELTASONE 5 MG PO (17:10)
[2024-06-09] MEDS: FLOMAX 0.4 MG PO (20:35)
[2024-06-09] MEDS: LANTUS 0.65 UNITS SC (20:35)
[2024-06-09 20:44] LABS: Glucose - Point of Care 146 mg/dl (70-99)
[2024-06-09 21:23] LABS: Glucose - Point of Care 134 mg/dl (70-99)
[2024-06-10] VITALS (29 sets, daily range): BP systolic 70–147; BP diastolic 50–96; PULSE 76–142; BMI 48.5
[2024-06-10] MEDS: STERILE WATER FOR INJECTION 10 ML IV ×3 (01:16→17:06)
[2024-06-10] MEDS: MAXIPIME 1000 MG IV ×3 (01:16→17:06)
[2024-06-10 04:49] LABS: Hematocrit 32.8 % (39.0-52.0); Hemoglobin 11.2 g/dL (13.0-18.0); Mean Corp Hgb Conc. 34.1 g/dL (33.0-37.0); Mean Corpuscular Hgb 32.6 pg (27.0-31.0); Mean Corpuscular Volume 95.3 fL (80.0-94.0); Mean Platelet Volume 11.1 fL (7.4-10.4); Platelet Count 201 10^3/uL (130-400); Red Blood Cell Count 3.44 10^6/uL (4.70-6.10); White Blood Cell Count 6.4 10^3/uL (4.8-10.8)
[2024-06-10] MEDS: ULTRAM 50 MG PO ×3 (05:27→17:15)
--- NOTE | 2024-06-10 05:39 | PTCARENOTE ---
No acute events overnight. Remains on iv abx-> plan for d/c monday once completed.
[2024-06-10 05:56] LABS: ALT (SGPT) 41 U/L (0-50); AST (SGOT) 36 U/L (17-59); Albumin 3.9 g/dl (3.5-5.0); Alkaline Phosphatase 118 U/L (38-126); Blood Urea Nitrogen 25 mg/dl (9-20); Calcium 9.1 mg/dl (8.4-10.2); Carbon Dioxide 31 mmol/L (22-30); Chloride 96 mmol/L (98-107); Estimated Creatinine Clearance 96 ml/min; Glucose 180 mg/dl (70-99); Potassium 5.5 mmol/L (3.5-5.1); Sodium 137 mmol/L (135-145); Total Bilirubin 0.5 mg/dl (0.2-1.3); Total Protein 6.9 g/dl (6.3-8.2); eGFR > 60.00
[2024-06-10] MEDS: MIRALAX 17 GRAMS PO (06:36)
--- NOTE | 2024-06-10 06:42 | PTCARENOTE ---
Patient with no BM this admission. yard caller provider made aware and ordered prn miralax.
[2024-06-10 07:48] LABS: Glucose - Point of Care 179 mg/dl (70-99)
[2024-06-10] MEDS: ADVAIR HFA 115/21 MCG INHALER 2 PUFF INH ×2 (07:55→19:42)
--- NOTE | 2024-06-10 07:57 | W.PN.HOSP.TC ---
Today's Communication/Plan
-
Continue current care
Assessment / Plan
Assessment / Plan
Gen-AAOx3, NAD, morbid obesity
HEENT-NC, AT, anicteric, clear oral mm
Neck-supple
CV-reg, no M, +S1/S2
Lungs-clear B/L
Abd-soft, NT, ND
Ext-no edema
Musculoskeletal-no cyanosis, clubbing
Skin-warm and dry
Neuro-grossly non-focal
Psych-calm, cooperative
Chest pain
hx of CAD s/p stent
- trop negative x 3
- ASA/Xarelto/Statin
Hx of Perm Afib with RVR
- s/p IV Cardizem drip
- continue PO BB
- continue Xarelto
- CBC cards signed off, OP f/u
multi-drug resistant Serratia Marcescens UTI -on cefepime until Monday per Dr. Strong, although I am not convinced this is a true infection.
Elevated LFTs
- RUQ US: confirms Hepatic fatty infiltration
PVD with edema, chronic venous stasis changes
LLE ulcers - healed
- wound care recs appreciated
- DVT study negative
Macrocytic anemia
- Hb stable
Essential HTN
- monitor BP on Cardizem
DM2 with hyperglycemia
- A1c 7.0
- continue Lantus and Humalog pre-meal, + SSI
HLD - continue statin
Chronic back pain
Neuropathy
- continue gabapentin
- X:ray: Subacute appearing probable fracture of the proximal phalanx of the left fifth digit.
- OP Podiatry f/u
Asthma
COPD
JOHNNIE/BiPAP
- no acute exacerbation
- continue inhalers
GERD/dysphagia hx
- continue PPI
BPH
- continue tamsulosin 0.4 mg at bedtime with hold parameters
Morbid obesity due to excess calorie consumption�BMI 43.4
- Weight loss recommended
- Affects aspects of care
- Low-fat, diabetic diet
- Advised patient to speak with PCP regarding management
Gout - Allopurinol
Renal calculi
OA
RA
- patient on methotrexate Monday
DVT ppx: Xarelto
Full code
Dispo -daughter insisting on completing course of antibiotics when it is probably not warranted as I do not feel this is a true UTI.
Anticipated Discharge: Within 24 hours
Subjective/Interval History
-
Date of Service: June 10, 2024
Patient seen and examined. No complaints.
Objective Data
-
Labs:
Laboratory Results
06/10/24 06/10/24
04:24 05:26
WBC 6.4
Hgb 11.2 L
Hct 32.8 L
Plt Count 201
Sodium Cancelled 137
Potassium Cancelled 5.5 H
Chloride Cancelled 96 L
Carbon Dioxide Cancelled 31 H
BUN Cancelled 25 H
Creatinine Cancelled 0.9
Glucose Cancelled 180 H
Calcium Cancelled 9.1
Total Bilirubin Cancelled 0.5
AST Cancelled 36
ALT Cancelled 41
Alkaline Phosphatase Cancelled 118
Vital Signs:
Vital Signs
Temp Pulse Resp BP Pulse Ox
97.4 F 69 12 127/81 99
06/10/24 03:45 06/10/24 04:00 06/10/24 04:00 06/10/24 04:00 06/09/24 20:51
I&O
06/09/24 06/10/24 06/11/24
06:59 06:59 06:59
Intake Total 240 / 240
Output Total 900 / 900 1100 / 1100
Balance -900 / -900 -860 / -860
Review of Systems
-
History Source: Patient
All other systems: Reviewed and negative
[2024-06-10] MEDS: NOVOLOG FLEXPEN-HIGH RESISTANCE 2 UNITS SC (08:41)
[2024-06-10] MEDS: NOVOLOG FLEXPEN 25 UNITS SC ×2 (08:42→12:28)
[2024-06-10] MEDS: CYMBALTA DELAYED RELEASE 60 MG PO (08:43)
[2024-06-10] MEDS: PROTONIX 40 MG PO (08:43)
[2024-06-10] MEDS: TOPROL XL 50 MG PO ×2 (08:43→21:36)
[2024-06-10] MEDS: SENOKOT 8.6 MG PO ×2 (08:43→21:36)
[2024-06-10] MEDS: NEURONTIN 800 MG PO ×4 (08:43→21:36)
[2024-06-10] MEDS: PROSCAR 5 MG PO (08:43)
[2024-06-10] MEDS: PAMELOR 50 MG PO ×2 (08:43→21:35)
[2024-06-10] MEDS: DULCOLAX 10 MG PO (08:44)
[2024-06-10] MEDS: HYDROPHOR 1 APPLIC TOPICAL (08:44)
--- NOTE | 2024-06-10 10:11 | CM ---
Addendum entered by Nicolette Raymundo RN 06/10/24 10:13:
Patient with Dx chest pain, Afib with RVR, UTI. Receiving IV cefepime. PT/OT recommend HH.
As per prior CM notes, patient has home O2 in place. Patient requested [facility]. Family requested w/c van transport home. Patient will not be able to use w/c van unless she has her portable home O2 with her.
[facility] with [facility] that patient can use w/c van service if they have their own home O2.
Plan home with [facility].
Plan confirm patient has her portable home O2 with her, for w/c van ride home.
Original Note:
Patient with Dx
--- NOTE | 2024-06-10 10:30 | CM ---
Patient with Dx chest pain, Afib with RVR, UTI. Receiving IV cefepime. PT/OT recommend HH.
Spoke with patient and daughter; patient and daughter are hoping for d/c tomorrow. Daughter is currently out of town in [place] today for work and meeting with her daughter there, and will not be returning home until 10pm tonight. Discussed
patient's current level of mobility and that he is working with PT/OT- daughter hoping for some stair training. She feels her father is medically complex and somewhat fragile. Daughter confirms she will provide transport home tomorrow.
Message to [facility] requesting therapy today and stair training.
As per prior CM notes, patient has night time home O2 in place. Patient requested to resume service with [facility].
Plan home probably tomorrow with [facility], with daughter transporting.
[2024-06-10] MEDS: LOKELMA 10 GRAM PO ×3 (11:04→19:35)
[2024-06-10 12:27] LABS: Glucose - Point of Care 244 mg/dl (70-99)
[2024-06-10] MEDS: NOVOLOG FLEXPEN-HIGH RESISTANCE 4 UNITS SC (12:27)
[2024-06-10 14:58] LABS: Glucose - Point of Care 173 mg/dl (70-99)
--- NOTE | 2024-06-10 15:42 | RR ---
A Rapid Response was called on this patient, please see Rapid Response form. Pt escorted to the bathroom received enema and sat on toilet after multiple attempts unsuccessful attempts to get up - staff / chair lift obtained however pt became pale
and lightheaded. BP 99/67. Got him in the bed with staff assist x 6. BP 70/50. Rapid response called. EKG obtained, accu check 173. BP at 1445 116/71, feels weak. Dr. Aguilera here to eval. Plan to do ortho VS in 1 hour and may transfer to
tele floor if neg.
[2024-06-10] MEDS: NOVOLOG FLEXPEN 35 UNITS SC (17:04)
[2024-06-10] MEDS: NOVOLOG FLEXPEN-HIGH RESISTANCE 1 UNITS SC (17:04)
[2024-06-10] MEDS: XARELTO 20 MG PO (17:08)
[2024-06-10] MEDS: LIPITOR 40 MG PO (17:08)
[2024-06-10] MEDS: DELTASONE 5 MG PO (17:08)
[2024-06-10] MEDS: VITAMIN C 1000 MG PO (17:08)
[2024-06-10] MEDS: ASPIR LOW (ENTERIC COATED) 81 MG PO (17:08)
[2024-06-10] MEDS: ZYLOPRIM 100 MG PO (17:08)
[2024-06-10 17:15] LABS: Glucose - Point of Care 112 mg/dl (70-99)
--- NOTE | 2024-06-10 19:10 | PTCARENOTE ---
Orthostatic VS completed and relayed to Dr. Aguilera- Transfer cancelled pt to remain in IMU.
--- NOTE | 2024-06-10 20:00 | PTCARENOTE ---
Received pt from previous shift; Pt is drowsy but awakens easily to verbal stimuli, AAOx3. Afib on the monitor, SpO2 93% on RA, lung sounds coarse at the bases. Round/obese/full abdomen, +bowel sounds, pt states he received an enema this afternoon
but is unsure whether or not it was successful. +1 edema to the LE, +pedal pulses, Tubigrips in place, skin intact underneath. Pt reports mild pain to his lower back which he states is chronic. Remainder of assessment as documented. Pt updated on
POC, resting comfortably in bed, call cote on his lap.
[2024-06-10] MEDS: FLOMAX 0.4 MG PO (21:35)
[2024-06-10 21:48] LABS: Glucose - Point of Care 80 mg/dl (70-99)
[2024-06-10] MEDS: LANTUS SC (21:53)
[2024-06-10] MEDS: LANTUS 0.2 UNITS SC (21:59)
--- NOTE | 2024-06-10 22:05 | PTCARENOTE ---
Pt's accuchek 80; pt due for 60 units of Lantus. D/w covering [employer], pt's evening dose of Lantus for tonight decreased to 20 units and pt provided a snack.
[2024-06-11] VITALS (27 sets, daily range): BP systolic 111–149; BP diastolic 71–123; PULSE 78–91; BMI 48.9
[2024-06-11] MEDS: ULTRAM 50 MG PO ×3 (01:44→17:15)
[2024-06-11] MEDS: STERILE WATER FOR INJECTION 10 ML IV ×4 (01:59→17:14)
[2024-06-11] MEDS: MAXIPIME 1000 MG IV ×4 (01:59→17:15)
[2024-06-11 07:15] LABS: Blood Urea Nitrogen 26 mg/dl (9-20); Calcium 8.9 mg/dl (8.4-10.2); Carbon Dioxide 31 mmol/L (22-30); Chloride 97 mmol/L (98-107); Estimated Creatinine Clearance 96 ml/min; Glucose 137 mg/dl (70-99); Sodium 138 mmol/L (135-145); eGFR > 60.00
[2024-06-11] MEDS: ULTRAM PO (08:12)
[2024-06-11 08:17] LABS: Glucose - Point of Care 116 mg/dl (70-99)
[2024-06-11] MEDS: NOVOLOG FLEXPEN-HIGH RESISTANCE SC ×3 (08:20→17:50)
[2024-06-11] MEDS: ADVAIR HFA 115/21 MCG INHALER 2 PUFF INH (08:36)
[2024-06-11] MEDS: PROTONIX 40 MG PO (09:23)
[2024-06-11] MEDS: NEURONTIN 800 MG PO ×3 (09:23→17:15)
[2024-06-11] MEDS: CYMBALTA DELAYED RELEASE 60 MG PO (09:23)
[2024-06-11] MEDS: SENOKOT 8.6 MG PO (09:23)
[2024-06-11] MEDS: PAMELOR 50 MG PO (09:23)
[2024-06-11] MEDS: MIRALAX 17 GRAMS PO (09:23)
[2024-06-11] MEDS: TOPROL XL 50 MG PO (09:24)
[2024-06-11] MEDS: PROSCAR 5 MG PO (09:25)
[2024-06-11] MEDS: HYDROPHOR 1 APPLIC TOPICAL (09:25)
[2024-06-11] MEDS: NOVOLOG FLEXPEN 25 UNITS SC ×2 (09:26→12:43)
--- NOTE | 2024-06-11 09:33 | W.PN.HOSP.TC ---
Today's Communication/Plan
-
Check orthostatics
Assessment / Plan
Assessment / Plan
Gen-AAOx3, NAD, morbid obesity
HEENT-NC, AT, anicteric, clear oral mm
Neck-supple
CV-reg, no M, +S1/S2
Lungs-clear B/L
Abd-soft, NT, ND
Ext-no edema
Musculoskeletal-no cyanosis, clubbing
Skin-warm and dry
Neuro-grossly non-focal
Psych-calm, cooperative
Orthostatic hypotension -compression stockings ordered but patients legs are too large. Tubigrip's applied by nursing. Check orthostatics today. If still positive will add midodrine.
Chest pain
hx of CAD s/p stent
- trop negative x 3
- ASA/Xarelto/Statin
Hx of Perm Afib with RVR
- s/p IV Cardizem drip
- continue PO BB
- continue Xarelto
- CBC cards signed off, OP f/u
multi-drug resistant Serratia Marcescens UTI -on cefepime until Monday per Dr. Strong, although I am not convinced this is a true infection.
Elevated LFTs
- RUQ US: confirms Hepatic fatty infiltration
PVD with edema, chronic venous stasis changes
LLE ulcers - healed
- wound care recs appreciated
- DVT study negative
Macrocytic anemia
- Hb stable
Essential HTN
- monitor BP on Cardizem
DM2 with hyperglycemia
- A1c 7.0
- continue Lantus and Humalog pre-meal, + SSI
HLD - continue statin
Chronic back pain
Neuropathy
- continue gabapentin
- X:ray: Subacute appearing probable fracture of the proximal phalanx of the left fifth digit.
- OP Podiatry f/u
Asthma
COPD
JOHNNIE/BiPAP
- no acute exacerbation
- continue inhalers
GERD/dysphagia hx
- continue PPI
BPH
- continue tamsulosin 0.4 mg at bedtime with hold parameters
Morbid obesity due to excess calorie consumption�BMI 43.4
- Weight loss recommended
- Affects aspects of care
- Low-fat, diabetic diet
- Advised patient to speak with PCP regarding management
Gout - Allopurinol
Renal calculi
OA
RA
- patient on methotrexate Monday
DVT ppx: Xarelto
Full code
Dispo -discharge later today if orthostatics negative.
Anticipated Discharge: Today
Subjective/Interval History
-
Date of Service: June 11, 2024
Patient seen and examined. Denies lightheadedness.
Objective Data
-
Labs:
Laboratory Results
06/11/24 06/11/24
04:42 06:14
Sodium Cancelled 138
Potassium Cancelled 5.0
Chloride Cancelled 97 L
Carbon Dioxide Cancelled 31 H
BUN Cancelled 26 H
Creatinine Cancelled 0.9
Glucose Cancelled 137 H
Calcium Cancelled 8.9
Vital Signs:
Vital Signs
Temp Pulse Resp BP Pulse Ox
97.6 F 80 18 137/96 94
06/11/24 07:53 06/11/24 09:24 06/11/24 08:40 06/11/24 01:30 06/11/24 08:40
I&O
06/10/24 06/11/24 06/12/24
06:59 06:59 06:59
Intake Total 240 / 240 240 / 240
Output Total 1100 / 1100 300 / 300
Balance -860 / -860 -60 / -60
Review of Systems
-
History Source: Patient
All other systems: Reviewed and negative
[2024-06-11] MEDS: LOKELMA PO (09:44)
[2024-06-11] MEDS: DRISDOL (VITAMIN D2) 50000 UNITS PO (10:31)
--- NOTE | 2024-06-11 11:14 | PTCARENOTE ---
Patient AAOx3. VSS. Afib on monitor. RA, 96%. Patient reports feeling 'fuzzy' and 'forgetful.' Slight dizziness when performing orthos today. See documentation. Patient had 1 large soft brown BM today. Continuing to closely monitor.
--- NOTE | 2024-06-11 12:00 | W.DS.TRANS ---
DC Summary - [employer] Relations Adviser
-
Discharge Instructions:
Discharge Diagnosis/Procedures Chest pain, orthostatic hypotension, atrial
fibrillation
Diet Diabetic, Carb Controlled
Activity As tolerated,With assistance
Driving Restrictions No driving
Bathing Restrictions None
Instructions:
Stand-Alone Forms:
Changes to Home Medications: No
Discharge Medications:
DC Medications w/original date entered in [facility]
ascorbic acid (vitamin C) 1,000 mg tablet (Vitamin C) 1,000 mg PO QPM Supplement 10/16/13
tramadol 50 mg tablet 50 mg PO Q6H Pain 10/16/13
prednisone 5 mg tablet 5 mg PO QPM Anti-Inflammatory 12/23/14
tamsulosin 0.4 mg capsule 0.4 mg PO HS Urinary Issue 12/23/14
allopurinol 100 mg tablet 100 mg PO QPM Gout 07/01/19
atorvastatin 40 mg tablet (Lipitor) 40 mg PO QPM High Cholesterol 07/01/19
finasteride 5 mg tablet 5 mg PO DAILY Urinary Issue 07/22/19
gabapentin 800 mg tablet (Neurontin) 800 mg PO QID Neurological Condition 07/22/19
omega-3 acid ethyl esters 1 gram capsule (Lovaza) 1 gm PO TID Supplement 07/22/19
rivaroxaban 20 mg tablet (Xarelto) 20 mg PO QPM ##0 07/22/19
insulin glargine 100 unit/mL subcutaneous solution (Lantus U-100 Insulin) 60 unit SQ HS Diabetes 12/03/20
insulin lispro 100 unit/mL subcutaneous pen (Humalog KwikPen (U-100) Insulin) 20 sliding scale dose SC BID@0800,1200 Diabetes 12/03/20
metformin 500 mg tablet 500 mg PO DAILY Diabetes 12/03/20
aspirin 81 mg tablet,delayed release 81 mg PO QPM Blood Clot Prevention/Tx 04/17/23
leucovorin calcium 10 mg tablet 10 mg PO MO rheumatoid arthritis 04/17/23
methotrexate sodium 2.5 mg tablet 12.5 mg PO SUMO rheumatoid arthritis 04/17/23
Lactobac no.2-Bifidobac no.1-S. thermo 112.5 billion cell capsule (Visbiome) 1 cap PO BID Gastrointestinal Issue 06/05/24
bumetanide 1 mg tablet 1 mg PO DAILYPRN PRN leg swelling 06/05/24
cholecalciferol (vitamin D3) 1,250 mcg (50,000 unit) tablet 1,250 mcg PO TUTH Supplement 06/05/24
duloxetine 60 mg capsule,delayed release 60 mg PO DAILY Mental Health/Anxiety 06/05/24
esomeprazole magnesium 40 mg capsule,delayed release 40 mg PO DAILY Gastrointestinal Issue 06/05/24
fluticasone 250 mcg-salmeterol 50 mcg/dose blistr powdr for inhalation (Advair Diskus) 1 inh inhalation R DAILY Lung/Breathing Issues 06/05/24
insulin lispro 100 unit/mL subcutaneous pen (Humalog KwikPen (U-100) Insulin) 30 sliding scale dose SC QPM Diabetes 06/05/24
metformin 500 mg tablet 1,000 mg PO QPM Diabetes 06/05/24
methenamine hippurate 1 gram tablet 1 g PO QPM prophylaxis 06/05/24
nitroglycerin 0.4 mg sublingual tablet 0.4 mg sublingual [id number] PRN chest pain 06/05/24
nortriptyline 50 mg capsule 50 mg PO BID Neurological Condition 06/05/24
metoprolol succinate 50 mg tablet,extended release 24 hr 50 mg PO BID #60 tabs 06/11/24
polyethylene glycol 3350 17 gram oral powder packet (HealthyLax) 17 g PO DAILY #0 ea 06/11/24
sennosides 8.6 mg tablet (Senna Laxative) 8.6 mg PO BID #0 tabs 06/11/24
Home Medication Changes
Pending Results: No
[2024-06-11 12:51] LABS: Glucose - Point of Care 127 mg/dl (70-99)
[2024-06-11] MEDS: ZYLOPRIM 100 MG PO (17:15)
[2024-06-11] MEDS: VITAMIN C 1000 MG PO (17:15)
[2024-06-11] MEDS: DELTASONE 5 MG PO (17:15)
[2024-06-11] MEDS: ASPIR LOW (ENTERIC COATED) 81 MG PO (17:15)
[2024-06-11] MEDS: XARELTO 20 MG PO (17:15)
[2024-06-11] MEDS: LIPITOR 40 MG PO (17:15)
--- NOTE | 2024-06-11 17:22 | CM ---
Patient with Dx chest pain, Afib with RVR, UTI, orthostatic hypotension. Room air. Receiving IV cefepime- last dose 18:00 today. PT/OT recommend HH.
Met with patient and daughter Tiny; they both agree to d/c home this evening after 6pm IV Abx completed. IMM completed. Patient/daughter aware that [facility] is in place. Daughter arrived home from her trip and will be able to take the patient
home today.
Message to [facility] via [facility] re; d/c today.
Plan home today with [facility], with daughter transporting.
--- NOTE | 2024-06-11 17:45 | PTCARENOTE ---
DC paperwork reviewed with patient and daughter. All questions answered. IV and tele removed. VSS. Awaiting wheelchair, daughter is patients ride.
[2024-06-11] MEDS: NOVOLOG FLEXPEN 35 UNITS SC (17:55)
[2024-06-11] MEDS: NOVOLOG FLEXPEN-HIGH RESISTANCE 1 UNITS SC (17:56)
[2024-06-11 18:00] LABS: Glucose - Point of Care 118 mg/dl (70-99)
== END 2024-06-11 18:23 | disposition home health service (06) | DRG 309 ==
LOC: IMU 18:08
PROVIDERS: Clinical Nurse Specialist Family Health; Internal Medicine; ADMITTING PHYSICIAN Hospitalist; ATTENDING PHYSICIAN Hospitalist; EMERGENCY PHYSICIAN Emergency Medicine; FAMILY PHYSICIAN Family Medicine; OTHER PHYSICIAN Internal Medicine Cardiovascular Disease
DX: I48.21 Permanent atrial fibrillation (principal); N39.0 Urinary tract infection, site not specified; Z68.42 Body mass index [BMI] 45.0-49.9, adult; Z16.24 Resistance to multiple antibiotics; I25.10 Atherosclerotic heart disease of native coronary artery without angina pectoris; I10 Essential (primary) hypertension; E11.40 Type 2 diabetes mellitus with diabetic neuropathy, unspecified; E11.51 Type 2 diabetes mellitus with diabetic peripheral angiopathy without gangrene; E11.65 Type 2 diabetes mellitus with hyperglycemia; E78.00 Pure hypercholesterolemia, unspecified; J44.89 Other specified chronic obstructive pulmonary disease; K21.9 Gastro-esophageal reflux disease without esophagitis; I95.1 Orthostatic hypotension; E66.01 Morbid (severe) obesity due to excess calories; M06.9 Rheumatoid arthritis, unspecified; M10.9 Gout, unspecified; N40.0 Benign prostatic hyperplasia without lower urinary tract symptoms; D53.9 Nutritional anemia, unspecified; R33.8 Other retention of urine; G47.33 Obstructive sleep apnea (adult) (pediatric); B96.89 Other specified bacterial agents as the cause of diseases classified elsewhere; I87.8 Other specified disorders of veins; G89.29 Other chronic pain; R07.89 Other chest pain; Z95.5 Presence of coronary angioplasty implant and graft; Z99.81 Dependence on supplemental oxygen; Z96.641 Presence of right artificial hip joint; Z96.653 Presence of artificial knee joint, bilateral; Z91.041 Radiographic dye allergy status; Z88.2 Allergy status to sulfonamides; Z88.1 Allergy status to other antibiotic agents; Z88.0 Allergy status to penicillin; Z79.899 Other long term (current) drug therapy; Z79.52 Long term (current) use of systemic steroids; Z79.84 Long term (current) use of oral hypoglycemic drugs; Z79.4 Long term (current) use of insulin; Z79.82 Long term (current) use of aspirin; Z79.01 Long term (current) use of anticoagulants
CPT/HCPCS: 71046; 73630; 76700; 80048; 80053; 81003; 81015; 82962; 83036; 83880; 84443; 84484; 85025; 85027; 87077; 87086; 87186; 93005; 93970; 94640; 94660; 94760; 96365; 96366; 97116; 97163; 97167; 97535; 99285

== ENCOUNTER 2024-09-11 01:42 | Inpatient (IN) | payer MEDICARE, OTHER, SELFPAY ==
[2024-09-10 20:43] VITALS: BP 124/64
--- NOTE | 2024-09-10 21:00 | ED.GENMED ---
History of Present Illness
<Luly Salazar PA-C - Last Filed: 09/10/24 23:51>
General
Chief Complaint: Fever
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
Exam Limitations: clinical condition
Time Seen by Provider: 09/10/24 20:52
History of Present Illness
History of Present Illness:
78yoM with a history of coronary artery disease, atrial fibrillation on Xarelto, rheumatoid arthritis on prednisone and methotrexate, hypertension, hyperlipidemia, and diabetes presenting via EMS for evaluation of generalized weakness. Patient
reports feeling generally unwell although is unable to elaborate further. I called and spoke with the nursing supervisor edging at [facility] for further history. Per retirement staff, patient developed a cough and shortness of breath this afternoon.
His oxygen saturation was reportedly low. The physician at the facility evaluated him and ordered a DuoNeb. He was also given a dose of 1 g IV Rocephin. He initially seemed to improve with this treatment although oxygen saturations again dropped
to the 80s and he was increasingly weak prompting EMS call. Of note, patient was hospitalized at [facility] at the end of July after a fall. He sustained fractures in the right and left femoral condyle which are being managed conservatively
with nonweightbearing status for 4 to 6 weeks.
Past History
<Luly Salazar PA-C - Last Filed: 09/10/24 23:51>
Past History
ED Past Medical History: Arrthythmia, CAD, HTN, Hypercholesterolemia, NIDDM and Other
ED Past Surgical History: Orthopedic and Other
Social History
Personal:
Living: with family
Phy Exam
<Luly Salazar PA-C - Last Filed: 09/10/24 23:51>
Physical Exam
Physical Exam:
Patient fatigued, ill appearing
General Physical Exam
General Presentation: moderate distress
General Skin: warm and dry
General Habitus: elderly
General Mental: alert
General Hydration: dry mucous membranes
ENT Exam
ENT Exam: normocephalic
Cardiovascular Exam
Cardiovascular Exam: irregularly irregular and tachycardia
Pulmonary Exam
Pulmonary Exam: accessory muscle use and other (Diffuse rales noted on lung exam with coarse cough. Increased WOB)
Gastrointestinal Exam
Gastrointestinal Exam: soft, non distended and other (+Upper abdominal tenderness. No rebound or guarding. )
Neurological Exam
Neurological Exam: alert
Skin Exam
Skin Exam: normal color and warm/dry
Sepsis
<Luly Salazar PA-C - Last Filed: 09/10/24 23:51>
Sepsis Screening
Sepsis Assessment: Sepsis
Sepsis Screen
Sepsis Screen: Sepsis
Date: 09/10/24
Time: 23:51
Course
<Luly Salazar PA-C - Last Filed: 09/10/24 23:51>
Orders/Labs/Results
Orders:
Orders
09/10/24 20:36
Electrocardiogram (*1) Urgent
Reason for Study: Other
Other Reason for Exam: Possible Sepsis
Cardiac Monitoring- Treatment ONCE
EKG- Treatment ONCE
IV Insert/Care/Rem.- Treatment PRN
Straight cath- Treatment ONCE
O2 Therapy [RESP] Urgent
Titrate/Wean O2 to maintain O2 sat greater than (%): 93
Special Instructions: TO MAINTAIN CONTINUOUS O2 SATS > OR = 93%
Pulse Ox/cont/shift [RESP] Urgent
Quantity: 1
Special Instructions: CONTINUOUS
09/10/24 20:53
Complete Blood Count/With Diff Urgent
Comprehensive Metabolic Panel Urgent
Lactic Acid Q4H
Comment: ON ICE, CANCEL 2ND ORDER IF FIRST LACTIC ACID LEVEL <2
Urinalysis Reflex To Culture Urgent
Date Specimen was Collected: 09/10/24
Time Specimen was Collected: 20:36
Urine Microscopic Reflex Cult Urgent
Urine Culture Urgent
VISHAL Source: U
Specimen Description:
Date Specimen was Collected: 09/10/24
Time Specimen was Collected: 20:36
09/10/24 21:00
Acetaminophen [Tylenol] 1,000 mg PO NOW STA
09/10/24 21:01
0.9% Sodium Chloride 500 ml [Nss] 500 ml IV BOLUS
CR Chest Portable - 1 View Urgent
Comment:
Reason For Exam: SOB
Reason Study Needs to be Portable: Patient Unstable
09/10/24 22:08
COVID-19 Antigen Urgent
Source: Nasal Swab
Blood Culture Q30M
VISHAL Source: Blood/Venous
Specimen Description:
Blood Culture Q30M
VISHAL Source: Blood/Venous
Specimen Description:
Influenza A+B Rapid Molecular Urgent
VISHAL Source: Nasal Swab
Specimen Description:
09/10/24 22:42
CT Abd/pel Without Iv Or Oral Urgent
Comment:
Reason For Exam: Upper abd pain, fever
Cefepime HCl [Maxipime] 2,000 mg IV NOW STA
09/10/24 22:43
0.9% Sodium Chloride 500 ml [Nss] 500 ml IV BOLUS
09/11/24 00:45
Lactic Acid Q4H
Comment: ON ICE, CANCEL 2ND ORDER IF FIRST LACTIC ACID LEVEL <2
Abnormal Lab Results
09/10/24
20:53
WBC 11.3 H 10^3/uL
(4.8-10.8)
RBC 4.04 L 10^6/uL
(4.70-6.10)
Hgb 12.4 L g/dL
(13.0-18.0)
Hct 38.4 L %
(39.0-52.0)
MCV 95.0 H fL
(80.0-94.0)
MCHC 32.3 L g/dL
(33.0-37.0)
RDW 18.6 H %
(11.5-14.5)
MPV 10.6 H fL
(7.4-10.4)
Abs Immat Gran (auto) 0.1 H 10^3/uL
(0-0.05)
Absolute Neuts (auto) 9.0 H 10^3/uL
(1.4-6.5)
Neutrophils % 79.7 H %
(42.2-75.2)
Lymphocytes % 13.9 L %
(20.5-51.1)
Chloride 93 L mmol/L
(98-107)
Carbon Dioxide 32 H mmol/L
(22-30)
BUN 29 H mg/dl
(9-20)
Glucose 197 H mg/dl
(70-99)
Lactic Acid 2.8 H mmol/L
(0.7-2.0)
Alkaline Phosphatase 149 H U/L
(38-126)
Leukocyte Esterase Rfl 1+ A
(Negative)
Urine WBC (Reflex) 50-60 A /HPF
(0-5)
Urine Bacteria (Reflex) Few A
(Negative)
Urine Yeast Many A
(Negative)
09/10/24 20:53
09/10/24 20:53
Vital Signs
Initial and Last Documented VS:
Initial Vital Signs
Temp Pulse Resp Pulse Ox
102.3 F H 156 28 88
09/10/24 20:38 09/10/24 20:38 09/10/24 20:38 09/10/24 20:38
Last Documented Vital Signs
Temp Pulse Resp BP Pulse Ox
102.3 F H 149 22 151/102 94
09/10/24 20:38 09/10/24 21:30 09/10/24 22:37 09/10/24 21:27 09/10/24 21:30
<Ely Zamora MD - Last Filed: 09/10/24 22:58>
Orders/Labs/Results
Orders:
Orders
09/10/24 20:36
Electrocardiogram (*1) Urgent
Reason for Study: Other
Other Reason for Exam: Possible Sepsis
Cardiac Monitoring- Treatment ONCE
EKG- Treatment ONCE
IV Insert/Care/Rem.- Treatment PRN
Straight cath- Treatment ONCE
O2 Therapy [RESP] Urgent
Titrate/Wean O2 to maintain O2 sat greater than (%): 93
Special Instructions: TO MAINTAIN CONTINUOUS O2 SATS > OR = 93%
Pulse Ox/cont/shift [RESP] Urgent
Quantity: 1
Special Instructions: CONTINUOUS
09/10/24 20:53
Complete Blood Count/With Diff Urgent
Comprehensive Metabolic Panel Urgent
Lactic Acid Q4H
Comment: ON ICE, CANCEL 2ND ORDER IF FIRST LACTIC ACID LEVEL <2
Urinalysis Reflex To Culture Urgent
Date Specimen was Collected: 09/10/24
Time Specimen was Collected: 20:36
Urine Microscopic Reflex Cult Urgent
Urine Culture Urgent
VISHAL Source: U
Specimen Description:
Date Specimen was Collected: 09/10/24
Time Specimen was Collected: 20:36
09/10/24 21:00
Acetaminophen [Tylenol] 1,000 mg PO NOW STA
09/10/24 21:01
0.9% Sodium Chloride 500 ml [Nss] 500 ml IV BOLUS
CR Chest Portable - 1 View Urgent
Comment:
Reason For Exam: SOB
Reason Study Needs to be Portable: Patient Unstable
09/10/24 22:08
COVID-19 Antigen Urgent
Source: Nasal Swab
Blood Culture Q30M
VISHAL Source: Blood/Venous
Specimen Description:
Blood Culture Q30M
VISHAL Source: Blood/Venous
Specimen Description:
Influenza A+B Rapid Molecular Urgent
VISHAL Source: Nasal Swab
Specimen Description:
09/10/24 22:42
CT Abd/pel Without Iv Or Oral Urgent
Comment:
Reason For Exam: Upper abd pain, fever
Cefepime HCl [Maxipime] 2,000 mg IV NOW STA
09/10/24 22:43
0.9% Sodium Chloride 500 ml [Nss] 500 ml IV BOLUS
09/11/24 00:45
Lactic Acid Q4H
Comment: ON ICE, CANCEL 2ND ORDER IF FIRST LACTIC ACID LEVEL <2
Abnormal Lab Results
09/10/24
20:53
WBC 11.3 H 10^3/uL
(4.8-10.8)
RBC 4.04 L 10^6/uL
(4.70-6.10)
Hgb 12.4 L g/dL
(13.0-18.0)
Hct 38.4 L %
(39.0-52.0)
MCV 95.0 H fL
(80.0-94.0)
MCHC 32.3 L g/dL
(33.0-37.0)
RDW 18.6 H %
(11.5-14.5)
MPV 10.6 H fL
(7.4-10.4)
Abs Immat Gran (auto) 0.1 H 10^3/uL
(0-0.05)
Absolute Neuts (auto) 9.0 H 10^3/uL
(1.4-6.5)
Neutrophils % 79.7 H %
(42.2-75.2)
Lymphocytes % 13.9 L %
(20.5-51.1)
Chloride 93 L mmol/L
(98-107)
Carbon Dioxide 32 H mmol/L
(22-30)
BUN 29 H mg/dl
(9-20)
Glucose 197 H mg/dl
(70-99)
Lactic Acid 2.8 H mmol/L
(0.7-2.0)
Alkaline Phosphatase 149 H U/L
(38-126)
Leukocyte Esterase Rfl 1+ A
(Negative)
Urine WBC (Reflex) 50-60 A /HPF
(0-5)
Urine Bacteria (Reflex) Few A
(Negative)
Urine Yeast Many A
(Negative)
09/10/24 20:53
09/10/24 20:53
Vital Signs
Initial and Last Documented VS:
Initial Vital Signs
Temp Pulse Resp Pulse Ox
102.3 F H 156 28 88
09/10/24 20:38 09/10/24 20:38 09/10/24 20:38 09/10/24 20:38
Last Documented Vital Signs
Temp Pulse Resp BP Pulse Ox
102.3 F H 149 22 151/102 94
09/10/24 20:38 09/10/24 21:30 09/10/24 22:37 09/10/24 21:27 09/10/24 21:30
<Luly Salazar PA-C - Last Filed: 09/10/24 23:51>
MDM/Problems Addressed
Differential Diagnosis Includes:
78yoM here with SOB, cough, generalized weakness. Presenting from [facility]. He is febrile to 102.3 on arrival with associated tachycardia. BP stable. Patient placed on 4L NC prior to my exam. He is ill appearing, fatigued, with
dry mucous membranes. Diffuse rales noted on lung exam. Differential diagnosis includes but is not limited to: sepsis, pneumonia, viral illness, dehydration
Initial ED plan: Check septic workup including blood cultures, lactate, COVID/flu swab, UA, and CXR. Tylenol and IV fluid bolus.
<Luly Salazar PA-C - Last Filed: 09/10/24 23:51>
*EKG
Interpreted by ED Provider?: Yes
EKG Intrepretation Date: 09/10/24
Heart Rate: 128
Rate: tachycardiac
Rhythm: a-fib
[place]: normal axis
QRS Pattern: right bundle branch block
Ischemia: no ischemia
*Critical Care Note
Total Time (30-74mins, 75-104mins- exclusive of procedures): Not Applicable
<Luly Salazar PA-C - Last Filed: 09/10/24 23:51>
Update Note
Update Note:
Labs reveal a leukocytosis with a white count of 11.3. Lactate 2.8. UA with 50-60 WBCs and many yeast. No obvious infiltrate seen on chest x-ray. Patient does have some upper abdominal tenderness on exam and CT abdomen was added for
completeness. IV cefepime ordered and patient admitted for further management.
ED Attending Note
<Luly Salazar PA-C - Last Filed: 09/10/24 23:51>
-
Portions of this chart may have been created with voice recognition software.� Occasional wrong word or��sound alike� substitutions may have occurred due to the inherent limitations of voice recognition software.
<Ely Zamora MD - Last Filed: 09/10/24 22:58>
ED Attending Note
Patient seen and examined by attending physician: Yes
I performed the substantive portion of visit, reviewed & personally made and approve the management plan that is documented in note by myself or MADELINE.: Yes
ED Attending Note:
I have seen and evaluated the patient with a [id number] encounter. I have spoken to the [PA] and involved in the medical history, the physical exam, medical decision making.
Evaluation and management service: agree unless noted differently below.
Results interpretation: agree unless noted differently below.
78-year-old man presenting to the emergency department with fevers. Per medics patient recently diagnosed with UTI. At retirement today he was found to have fevers as well as tachypnea. He does complain of a cough. Denies any chest pain. Some
shortness of breath. No nausea vomiting. Intermittent abdominal pain. On exam patient is resting comfortably. He is on nasal cannula. He does have coarse breath sounds in anterior lung holloway. He does have diffuse abdominal tenderness. Likely
pneumonia versus viral illness. Will rule out intra-abdominal pathology. EKG per my interpretation atrial fibrillation with right bundle branch block. He is tachycardic likely from sepsis. Will give fluid resuscitation as well as antibiotics.
Patient will need admission.
Discharge Plan
Departure
Patient Disposition: Admit
Date of Disposition: 09/10/24
Time of Disposition: 23:42
Presentation/result/management discussed w/ accepting MD/DO: Hospitalist
Discharge Problem:
Sepsis, Acute hypoxic respiratory failure, Atrial fibrillation with RVR
Prescriptions:
No Action
tramadol 50 MG tablet
50 mg PO Q6H
prednisone 5 MG tablet
5 mg PO DAILY
tamsulosin 0.4 MG capsule
0.4 mg PO DAILY
atorvastatin [Lipitor] 40 MG tablet
40 mg PO HS
allopurinol 100 MG tablet
100 mg PO DAILY
finasteride 5 MG tablet
5 mg PO DAILY
gabapentin [Neurontin] 800 MG tablet
800 mg PO QID
omega-3 acid ethyl esters [Lovaza] 1 GM capsule
1 gm PO TID
insulin glargine [Lantus U-100 Insulin] 100 UNIT/ML solution
54 unit SQ HS
insulin lispro [Humalog KwikPen Insulin] 100 UNIT/ML insulin pen
5 unit SC MEALS
leucovorin calcium 10 mg Tablet
10 mg PO DAILY
Patient Comments:
06/05/24: take this 12 hours after monday dose of methotrexate
fluticasone propion-salmeterol [Advair Diskus] 250-50 mcg/dose Blister With Device
1 inh INHALATION R DAILY
methenamine hippurate 1 gram Tablet
1 g PO BID
nortriptyline 50 mg Capsule
50 mg PO DAILY
duloxetine 60 mg Capsule,Delayed Release(Dr/Ec)
60 mg PO DAILY
bumetanide 1 mg Tablet
1 mg PO DAILY
metoprolol succinate 50 mg Tablet Extended Release 24 Hr
50 mg PO BID Qty: 60 0RF
acetaminophen 325 mg Tablet
650 mg PO Q6HPRN PRN (Reason: mild pain/temp>100)
ipratropium-albuterol 0.5 mg-3 mg(2.5 mg base)/3 mL Solution For Nebulization
3 ml INHALATION R QID
ammonium lactate 12 % Lotion
1 applic TOPICAL DAILY
Rx Instructions:
b/l lower legs
lisinopril 20 mg Tablet
20 mg PO DAILY
Theragen Tablet
1 tab PO DAILY
methotrexate sodium 25 mg/mL Solution
25 mg SC SA
ceftriaxone 1 gram Recon Soln
1 g IV DAILY
Patient Comments:
09/10/24: take 2g on first day, then 1g for 6 days
magnesium hydroxide [Milk of Magnesia] 400 mg/5 mL Suspension
30 ml PO [id number] PRN (Reason: no bm x3 days)
ascorbic acid (vitamin C) [Vitamin C] 500 mg Tablet
500 mg PO DAILY
bisacodyl 10 mg Suppository
10 mg LA DAILYPRN PRN (Reason: constipation, mom ineffective)
Fleet Enema 19-7 gram/118 mL Enema
118 ml LA DAILYPRN PRN (Reason: constipation, dulcolax ineffective)
omeprazole 20 mg Capsule,Delayed Release(Dr/Ec)
20 mg PO DAILY
ergocalciferol (vitamin D2) 1,250 mcg (50,000 unit) Capsule
1,250 mcg PO TUFR
fluticasone propionate [Flonase] 50 mcg/actuation [place],Suspension
2 spray INTRANASAL BID
Patient Comments:
09/10/24: for 21 days, from 09/10/24-10/01/24
oxycodone 5 mg Tablet
5 mg PO Q4HPRN PRN (Reason: moderate pain)
guaifenesin 400 mg Tablet
1,200 mg PO BID
Patient Comments:
09/10/24: for 5 days, from 09/10/24-09/15/24
tirzepatide 2.5 mg/0.5 mL Pen Injector
2.5 mg SC WE
Rx Instructions:
for 4 weeks
Xarelto 20 MG tablet
20 mg PO DAILY
Referrals:
Willie Robbins MD [Non-Admitting Privileges] -
Interventions
Interventions:
*Risk Screen - Suicide Last Done: 09/10/24 20:38
*General Assessment Last Done: 09/10/24 20:38
*Neglect/Abuse Screening Last Done: 09/10/24 20:38
ED- Fall Risk Assessment Last Done: 09/10/24 20:38
*ED COVID-19 Vaccine History Last Done: 09/10/24 20:38
ED- Neurological Assessment Last Done: 09/10/24 20:38
ED-Skin Assessment Last Done: 09/10/24 20:38
Discharge Date and Time
Print Language: TAIWANESE
[2024-09-10 21:26] LABS: % Basophils 0.2 % (0-2); % Eosinophils 0.1 % (0-6); % Immature Granulocytes 0.4 % (0-0.5); % Lymphocytes 13.9 % (20.5-51.1); % Monocytes 5.7 % (1.7-9.3); % Neutrophils 79.7 % (42.2-75.2); Absolute Immature Granulocytes 0.1 10^3/uL (0-0.05); Absolute Lymphocytes 1.6 10^3/uL (1.2-3.4); Absolute Monocytes 0.6 10^3/uL (0.1-0.6); Hematocrit 38.4 % (39.0-52.0); Hemoglobin 12.4 g/dL (13.0-18.0); Mean Corp Hgb Conc. 32.3 g/dL (33.0-37.0); Mean Corpuscular Hgb 30.7 pg (27.0-31.0); Mean Platelet Volume 10.6 fL (7.4-10.4); Nucleated Red Blood Cells % 0 % (-); Platelet Count 195 10^3/uL (130-400); Red Blood Cell Count 4.04 10^6/uL (4.70-6.10); Red Cell Dist. Width 18.6 % (11.5-14.5); White Blood Cell Count 11.3 10^3/uL (4.8-10.8)
[2024-09-10 21:27] VITALS: BP 151/102
[2024-09-10 21:29] LABS: Urine Albumin Trace (Neg - Trace); Urine Bilirubin Negative (Negative); Urine Character Clear (Clear); Urine Color Yellow; Urine Glucose Negative (Negative); Urine Ketone Negative (Negative); Urine Leukocyte 1+ (Negative); Urine Nitrite Negative (Negative); Urine Occult Blood Negative (Negative); Urine Urobilinogen Negative (Neg - 1+); Urine pH 6.5 (5.0-9.0)
[2024-09-10 21:34] LABS: Lactic Acid 2.8 mmol/L (0.7-2.0)
[2024-09-10] MEDS: NSS 500 IV ×2 (21:41→22:57)
[2024-09-10 21:49] LABS: ALT (SGPT) 25 U/L (0-50); AST (SGOT) 38 U/L (17-59); Albumin 4.1 g/dl (3.5-5.0); Alkaline Phosphatase 149 U/L (38-126); Blood Urea Nitrogen 29 mg/dl (9-20); Calcium 8.7 mg/dl (8.4-10.2); Carbon Dioxide 32 mmol/L (22-30); Chloride 93 mmol/L (98-107); Glucose 197 mg/dl (70-99); Potassium 5.1 mmol/L (3.5-5.1); Sodium 135 mmol/L (135-145); Total Protein 7.6 g/dl (6.3-8.2); eGFR > 60.00
[2024-09-10] MEDS: TYLENOL 1000 MG PO (22:06)
[2024-09-10 22:14] LABS: Urine Squamous Cell 21-25 /LPF (Few); Urine Urothelial Cell 21-25 /LPF (FEW)
[2024-09-10 22:17] LABS: Urine Bacteria Few (Negative); Urine Red Blood Cell 0-2 /HPF (0-2); Urine White Cell 50-60 /HPF (0-5)
[2024-09-10 22:21] LABS: Urine Yeast Many (Negative)
[2024-09-10 22:29] VITALS: BP 154/94
[2024-09-10 22:36] LABS: COVID-19 Antigen Negative (Negative)
[2024-09-10 22:38] VITALS: BMI 43.4
[2024-09-10] MEDS: MAXIPIME 2000 MG IV (22:56)
[2024-09-11] VITALS (34 sets, daily range): BP systolic 97–169; BP diastolic 71–127; PULSE 105–113; BMI 39.7
--- NOTE | 2024-09-11 01:35 | HPS.HSE ---
Family Physician
-
Family Physician: Heron Santiago DO
Chief Complaint
-
Cough / Hypoxemia
History of Present Illness
Patient is a 78y M with PMH significant for rheumatoid arthritis, hypertension, DM-II and morbid obesity who presents to ED complaining of cough and SOB. Patient states that he has been feeling ill for the past 4 days or so. [place] reports that
patient started with cough and congestion today and was noted to be hypoxemic with SpO2 into the 80s. He was given DuoNeb and ceftriaxone dose at the [place]. His saturations remained in the 80s and he was transported to the ED for further evaluation.
Patient is somewhat lethargic in the ED. He will respond to questions and follow commands, but answers are limited in detail and he has some difficulty recalling events.
Patient was last admitted here in May 2024 secondary to chest pain and A-Fib.
His most recent hospitalization was at [facility] in July s/p fall. Patient was noted to have bilateral LE fractures (records state femur fractures / patient says 'knee caps').
Patient is being managed conservatively with non-weight bearing x 4-6 weeks.
Medical History
Past Medical History
Past Medical History: Reports Other
Additional Past Medical History:
Permanent A-fib/A-flutter
HTN
CAD status post cardiac stent
DM2
HLD
Chronic back pain
Neuropathy
Asthma / COPD
Sleep apnea/CPAP setting 9 - O2 3 liters
GERD, Dysphagia
BPH
Nephrolithiasis
Gout
Rheumatoid Arthritis
Morbid Obesity
Past Surgical History: Reports Other
Additional Past Surgical History:
Back surgery x 2
Reported ankle surgery
2 knee replacement
Cardiac cath x 2 cardiac stent
Cardioversions x 2 for permanent A-fib
Right hip replacement
Social History
Tobacco: Non-smoker
Alcohol: None
Drug: None
Personal:
Living: With Family (daugther )
Employment: Retired
Family History
Family History: Not pertinent
Allergies / Home Medications
Allergies reflects when Allergies were last updated in [employer].
Home Medications with original date entered in [employer]
Allergy/Medication List:
Allergies
Allergy/AdvReac Type Severity Reaction Status Date / Time
alprazolam [From Xanax] Allergy hieves, SOB Verified 11/11/23 10:54
amoxicillin [From Augmentin] Allergy Unknown Verified 11/11/23 10:54
celecoxib [From Celebrex] Allergy hives, SOB Verified 11/11/23 10:54
clarithromycin [From Biaxin] Allergy SOB, hives Verified 11/11/23 10:54
clavulanic acid Allergy Unknown Verified 11/11/23 10:54
[From Augmentin]
clindamycin HCl Allergy Hives, SOB Verified 11/11/23 10:54
[From Cleocin]
clindamycin palmitate HCl Allergy Hives, SOB Verified 11/11/23 10:54
[From Cleocin]
clindamycin phosphate Allergy Hives, SOB Verified 11/11/23 10:54
[From Cleocin]
famotidine [From Pepcid] Allergy hives SOB Verified 11/11/23 10:54
hydrocodone [From Vicodin] Allergy Unknown Verified 11/11/23 10:54
hydroxychloroquine sulfate Allergy hives, SOB Verified 11/11/23 10:54
[From Plaquenil]
Iodinated Contrast Media Allergy Hives Verified 06/05/24 20:35
Penicillins Allergy Hives Verified 11/11/23 10:54
Sulfa (Sulfonamide Allergy Unknown Verified 06/07/24 14:32
Antibiotics)
Home Medications
tramadol 50 mg tablet 50 mg PO Q6H Pain 10/16/13
prednisone 5 mg tablet 5 mg PO DAILY Anti-Inflammatory 12/23/14
tamsulosin 0.4 mg capsule 0.4 mg PO DAILY Urinary Issue 12/23/14
allopurinol 100 mg tablet 100 mg PO DAILY Gout 07/01/19
atorvastatin 40 mg tablet (Lipitor) 40 mg PO HS High Cholesterol 07/01/19
finasteride 5 mg tablet 5 mg PO DAILY Urinary Issue 07/22/19
gabapentin 800 mg tablet (Neurontin) 800 mg PO QID Neurological Condition 07/22/19
omega-3 acid ethyl esters 1 gram capsule (Lovaza) 1 gm PO TID Supplement 07/22/19
insulin glargine 100 unit/mL subcutaneous solution (Lantus U-100 Insulin) 54 unit SQ HS Diabetes 12/03/20
insulin lispro 100 unit/mL subcutaneous pen (Humalog KwikPen (U-100) Insulin) 5 unit SC MEALS Diabetes 12/03/20
leucovorin calcium 10 mg tablet 10 mg PO DAILY rheumatoid arthritis 04/17/23
bumetanide 1 mg tablet 1 mg PO DAILY 06/05/24
duloxetine 60 mg capsule,delayed release 60 mg PO DAILY Mental Health/Anxiety 06/05/24
fluticasone 250 mcg-salmeterol 50 mcg/dose blistr powdr for inhalation (Advair Diskus) 1 inh inhalation R DAILY Lung/Breathing Issues 06/05/24
methenamine hippurate 1 gram tablet 1 g PO BID prophylaxis 06/05/24
nortriptyline 50 mg capsule 50 mg PO DAILY Neurological Condition 06/05/24
metoprolol succinate 50 mg tablet,extended release 24 hr 50 mg PO BID #60 tabs 06/11/24
acetaminophen 325 mg tablet 650 mg PO Q6HPRN PRN mild pain/temp>100 09/10/24
ammonium lactate 12 % lotion 1 applic topical DAILY 09/10/24
ascorbic acid (vitamin C) 500 mg tablet (Vitamin C) 500 mg PO DAILY 09/10/24
bisacodyl 10 mg rectal suppository 10 mg MS DAILYPRN PRN constipation, mom ineffective 09/10/24
ceftriaxone 1 gram intravenous solution 1 g IV DAILY 09/10/24
ergocalciferol (vitamin D2) 1,250 mcg (50,000 unit) capsule 1,250 mcg PO TUFR 09/10/24
fluticasone propionate 50 mcg/actuation nasal spray,suspension 2 spray intranasal BID 09/10/24
guaifenesin 400 mg tablet 1,200 mg PO BID 09/10/24
ipratropium 0.5 mg-albuterol 3 mg (2.5 mg base)/3 mL nebulization soln 3 ml inhalation R QID 09/10/24
lisinopril 20 mg tablet 20 mg PO DAILY 09/10/24
magnesium hydroxide 400 mg/5 mL oral suspension (Milk of Magnesia) 30 ml PO [id number] PRN no bm x3 days 09/10/24
methotrexate sodium 25 mg/mL injection solution 25 mg SC SA 09/10/24
omeprazole 20 mg capsule,delayed release 20 mg PO DAILY 09/10/24
oxycodone 5 mg tablet 5 mg PO Q4HPRN PRN moderate pain 09/10/24
rivaroxaban 20 mg tablet (Xarelto) 20 mg PO DAILY 09/10/24
sodium phosphates 19 gram-7 gram/118 mL enema (Fleet Enema) 118 ml MS DAILYPRN PRN constipation, dulcolax ineffective 09/10/24
therapeutic multivitamin 1 tab PO DAILY 09/10/24
tirzepatide 2.5 mg/0.5 mL subcutaneous pen injector 2.5 mg SC WE 09/10/24
Review of Systems
-
History Source: Patient
A 12 point ROS was completed and negative except as noted: Yes
Constitutional: Reports Fatigue; Denies Fever or Chills
EENT: Denies Sore Throat
Respiratory: Reports Cough and Trouble Breathing; Denies Hemoptysis
Cardiac: Denies Chest Pain or Palpitations
Abdomen/GI: Reports Abdominal Pain; Denies Nausea, Vomiting or Diarrhea
: Denies Dysuria, Frequency or Flank Pain
Musculoskeletal: Reports Other (Low back pain.); Denies Joint Pain or Edema
Neurological: Reports Weakness; Denies Dizzy or Headache
Psych: Denies Depression or Anxiety
Physical Exam
Vital Signs
Vital Signs
Temp Pulse Resp BP Pulse Ox
102.5 F H 118 19 143/76 95
09/11/24 00:55 09/11/24 00:45 09/11/24 00:45 09/11/24 00:00 09/11/24 00:55
Physical Exam
General: Other (78y M in mild respiratory distress. Morbidly obese.)
HEENT: Moist mucous membranes, PERRLA and Other (Thick neck.)
Respiratory: Other (Audible upper airway congestion. Coarse breath sounds / wheezing throughout - improves with effective cough. )
Cardiac: S1/S2 and Irregular Rhythm; No Murmur
GI: Non Tender, Non Distended, Normal Bowel Sounds and Other (Obese)
Musculoskeletal: No Clubbing, No Cyanosis, No Edema and Other (TEDs in place. Lidoderm patches to bilateral knees.)
Neuro: Oriented
Laboratory Results
-
09/10/24 20:53
09/10/24 20:53
Laboratory Results
Lactic Acid 2.8 mmol/L (0.7-2.0) H 09/10/24 20:53
Total Bilirubin 1.0 mg/dl (0.2-1.3) 09/10/24 20:53
AST 38 U/L (17-59) 09/10/24 20:53
ALT 25 U/L (0-50) 09/10/24 20:53
Alkaline Phosphatase 149 U/L (38-126) H 09/10/24 20:53
Impression/Plan
-
A/P: Patient is a 78y M with PMH significant for COPD, ASCVD, HTN and DM-II who presents to ED from local [place] for evaluation of cough and hypoxemia.
Tracheobronchitis
Sepsis secondary to the above
Acute Hypoxemic Respiratory Insufficiency secondary to the above
- Admit for further evaluation and treatment.
- Patient presents with fever to 102.3, tachycardia, tachypnea and leukocytosis.
- Acute hypoxemia with initial RA saturation of 80% - now stable on supplemental O2.
- CXR essentially unremarkable despite exam, cough, etc.
- COVID / influenza negative in the ED.
- Cover with abx for now with ceftriaxone / doxycycline (initial ceftriaxone dose given at [place]).
- Supportive care including O2, nebs, chest PT, etc.
- IVF support and follow for improvement in tachycardia, lactate level, etc.
- Follow for clinical improvement.
Bilateral LE Fractures
- Uncertain of exact fracture location (femoral condyle, patella, etc).
- Non-weight bearing on both LEs per [place] record and confirmed with patient.
- Uses Fanny for transfers to chair / wheelchair / etc.
- PT / OT evaluations.
- Follow-up with Ortho as an outpatient as planned.
ASCVD
- Stable. No complaints of chest pain.
- Continue current CV med regimen.
Permanent Atrial Fibrillation
RBBB
- Stable. Continue current med regimen for rate control.
- Continue Xarelto for stroke risk reduction.
Benign Hypertension
- Stable. Continue BP medications with holding parameters.
DM-II
- Stable. Continue basal : bolus insulin regimen.
- Follow glucose and cover with SSI as needed.
- Update A1C.
Asthma / COPD
- Some scattered wheezing - but improves with cough. Doubt acute exacerbation.
- Inhaled medications including nebs ATC and PRN.
- Follow for clinical changes.
JOHNNIE
- Stable. Continue nightly CPAP.
Rheumatoid Arthritis
- No specific / acute complaints of joint pains at present.
- Hold MTX acutely given infection.
- Follow for any changes.
Chronic Back Pain
Peripheral Neuropathy
- Stable. Continue current pain control medications including gabapentin.
BPH
- Stable. Continue tamsulosin.
- Bladder scan protocol.
Morbid Obesity due to excess calories
- Affects all aspects of care.
- Healthy diet.
- Current ability for activity / exercise is markedly limited given NWB status / LE injuries.
DVT Prophylaxis: On Xarelto
Code Status: Full
[2024-09-11 01:39] LABS: Lactic Acid 1.6 mmol/L (0.7-2.0)
--- NOTE | 2024-09-11 03:20 | PTCARENOTE ---
Rec'd pt from ER via stretcher on monitor & o2 4 liters, pt oriented to icu routine, forgetful, oriented to self, drowsy, afib, bp slsvated- S Debbie, [employer] OPERATOR notified- to trend at present and notify if still elevated, + pulses, tubigrips on LE, legs
nonweight bearing, skin flushed, temp 102.9- ofirmiv `1 gm given at 0400, changed to cpap 9 & 4 liters by resp therapist , lungs w/ scat crackles, exp wheezes, harsh moist cough, nonproductive, + bowel sounds, no bm, abd obese, soft, tender in mid
abd, voiding cody urine, purewick applied
[2024-09-11] MEDS: OFIRMEV 100 IV (04:02)
[2024-09-11] MEDS: NSS 1000 IV (04:04)
[2024-09-11] MEDS: STERILE WATER FOR INJECTION 10 ML IV (04:42)
[2024-09-11] MEDS: ROCEPHIN 1000 MG IV (04:42)
[2024-09-11 04:52] LABS: Hematocrit 36.7 % (39.0-52.0); Hemoglobin 11.9 g/dL (13.0-18.0); Mean Corp Hgb Conc. 32.4 g/dL (33.0-37.0); Mean Corpuscular Volume 95.6 fL (80.0-94.0); Mean Platelet Volume 10.9 fL (7.4-10.4); Platelet Count 179 10^3/uL (130-400); Red Blood Cell Count 3.84 10^6/uL (4.70-6.10); Red Cell Dist. Width 18.6 % (11.5-14.5); White Blood Cell Count 9.4 10^3/uL (4.8-10.8)
[2024-09-11] MEDS: LOPRESSOR 2.5 MG IV (05:12)
--- NOTE | 2024-09-11 05:12 | PTCARENOTE ---
lopressor 2.5mg iv given for bp & HR
[2024-09-11 05:28] LABS: ALT (SGPT) 20 U/L (0-50); AST (SGOT) 32 U/L (17-59); Albumin 3.2 g/dl (3.5-5.0); Alkaline Phosphatase 134 U/L (38-126); Blood Urea Nitrogen 27 mg/dl (9-20); Calcium 7.9 mg/dl (8.4-10.2); Carbon Dioxide 28 mmol/L (22-30); Chloride 86 mmol/L (98-107); Direct Bilirubin 0.1 mg/dl (0.0-0.4); Estimated Creatinine Clearance 102 ml/min; Glucose 195 mg/dl (70-99); Potassium 4.3 mmol/L (3.5-5.1); Sodium 125 mmol/L (135-145); Total Bilirubin 0.7 mg/dl (0.2-1.3); Total Protein 6.3 g/dl (6.3-8.2); eGFR > 60.00
[2024-09-11] MEDS: DUONEB 3 ML INH ×4 (07:23→19:59)
--- NOTE | 2024-09-11 08:00 | PTCARENOTE ---
Received patient from low pressure firer. patient is AAOxself, he is confused and drowsy. Unable to state where is is, stated [facility]. Was able and appropriate to tell me who is was and where he was from. He was on bipap last night and is now
on 4L. Coarse, harsh wet cough throughout. Patient is afib on the monitor. Abdomen is obese round. Patient is incontinent of bowel and bladder. NPO pending speech eval. NSS infusing into left hand INT. IMU status. will review orders.
[2024-09-11] MEDS: NOVOLOG FLEXPEN-MODERATE RESISTANCE 3 UNITS SC ×3 (08:26→17:44)
[2024-09-11] MEDS: ZYLOPRIM 100 MG PO (08:27)
[2024-09-11] MEDS: VITAMIN C 500 MG PO (08:27)
[2024-09-11] MEDS: NEURONTIN 800 MG PO ×4 (08:27→20:38)
[2024-09-11] MEDS: TOPROL XL 50 MG PO ×2 (08:27→20:38)
[2024-09-11] MEDS: DELTASONE 5 MG PO (08:27)
[2024-09-11] MEDS: FLOMAX 0.4 MG PO (08:27)
[2024-09-11] MEDS: PROTONIX 40 MG PO (08:27)
[2024-09-11] MEDS: VIBRAMYCIN 100 MG PO ×2 (08:27→20:38)
[2024-09-11] MEDS: ZESTRIL 20 MG PO (08:27)
[2024-09-11] MEDS: THERAGRAN 1 TABLET PO (08:28)
[2024-09-11] MEDS: PROSCAR 5 MG PO (08:28)
[2024-09-11] MEDS: XARELTO 20 MG PO (08:28)
[2024-09-11] MEDS: PAMELOR 50 MG PO (08:28)
[2024-09-11] MEDS: CYMBALTA DELAYED RELEASE 60 MG PO (08:28)
[2024-09-11] MEDS: MUCINEX 1200 MG PO (08:28)
[2024-09-11] MEDS: LEUCOVORIN 10 MG PO (08:29)
[2024-09-11] MEDS: LAC HYDRIN, AM LACTIN LOTION 1 APPLIC TOPICAL (08:29)
[2024-09-11 08:34] LABS: Glucose - Point of Care 229 mg/dl (70-99)
[2024-09-11] MEDS: NOVOLOG FLEXPEN SC ×3 (08:38→15:20)
[2024-09-11 08:58] LABS: Glycohemoglobin (HgbA1c) 8.1 % (4.0-5.6)
[2024-09-11] MEDS: TYLENOL 650 MG PO ×3 (09:10→21:43)
--- NOTE | 2024-09-11 10:30 | PTCARENOTE ---
Jesus texted Dr. Pantoja, patient now on 6L nasal cannula, crackles and coarse rhonchi throughout. Physician at bedside, IVF stopped, repeat echo ordered. BNP ordered. Speech eval and treat ordered. Will also obtain records from [place].
--- NOTE | 2024-09-11 11:05 | W.PN.HOSP.TC ---
Today's Communication/Plan
-
Empiric antibiotics
Hold IV fluids
Trial of Lasix
Continue oxygen supplementation
Speech and swallow evaluation advance diet accordingly.
Assessment / Plan
Assessment / Plan
Impression
Patient is a 78y M with PMH significant for COPD, ASCVD, HTN and DM-II who presents to ED from local [place] for evaluation of cough and hypoxemia.
Acute hypoxic respiratory failure likely multifactorial
Sepsis present on admission
Acute tracheobronchitis
Abnormal urinalysis.
Clinical volume overload with concern for CHF
Hyponatremia
Other conditions:
Recent hospitalization to [facility] with bilateral lower extremity fractures
ASCVD.
Permanent atrial fibrillation baseline anticoagulation with Xarelto.
Benign hypertension
IDDM.
Asthma/COPD.
Obstructive sleep apnea on CPAP at night.
Rheumatoid arthritis.
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
Chronic back pain pain
Peripheral neuropathy
BPH.
History of UTI with Serratia.
Morbid obesity
Plan:
Acute hypoxic respiratory failure likely multifactorial and suspect in the settings of acute tracheobronchitis as well as possible volume overload and CHF.
Reported hypoxia with pulse ox of 80% on room air.
Currently on 6 L of nasal cannula oxygen.
Sepsis present on admission.
Fever, leukocytosis
Chest x-ray with increased vascularity, although with no focal infiltrates
COVID/influenza negative.
Abnormal urinalysis.
Prior history of Serratia UTI.
Blood cultures pending
Urine cultures pending.
Empiric antibiotics ceftriaxone/doxycycline
Speech and swallow evaluation
Concern for acute CHF
Clinically volume overloaded
Prior CHF BNP pending
Echocardiogram 08/18: LVEF 60-65%. LVH. Diastolic function intermediate with A-fib. Moderately dilated left atrium..
Hold further IV fluids.
Trial of IV Lasix 20 mg ordered.
Hyponatremia. Sodium 125
Clinically volume overloaded.
TSH within normal limits.
Check urine awesome.
Hold further fluids.
Monitor BMP closely
Permanent atrial fibrillation.
Noted elevated ventricular rates in the settings of hypoxia
Continue preadmission metoprolol
Continue anticoagulation with Xarelto.
ASCVD.
Essential hypertension
Continue metoprolol, lisinopril, statin
Update echocardiogram as above
IDDM.
Hemoglobin A1c 8.1.
While n.p.o. continue reduced dose of Lantus/NovoLog AC.
Basal bolus protocol.
Adjust regimen accordingly.
Rheumatoid arthritis.
Chronic immunosuppression with methotrexate and prednisone.
Hold methotrexate acutely while pending workup for sepsis.
Asthma / COPD
- Some scattered wheezing - but improves with cough. Doubt acute exacerbation.
- Inhaled medications including nebs ATC and PRN.
- Follow for clinical changes.
JOHNNIE
- Stable. Continue nightly CPAP.
BPH
- Stable. Continue tamsulosin.
- Bladder scan protocol.
Morbid Obesity due to excess calories
- Affects all aspects of care.
- Healthy diet.
- Current ability for activity / exercise is markedly limited given NWB status / LE injuries.
Bilateral LE Fractures
- Uncertain of exact fracture location (femoral condyle, patella, etc).
- Non-weight bearing on both LEs per [facility] record and confirmed with patient.
- Uses Fanny for transfers to chair / wheelchair / etc.
- PT / OT evaluations.
- Follow-up with Ortho as an outpatient as planned.
Obtain medical records from recent hospitalization.
Full code.
DVT prophylaxis Xarelto
Anticipated Discharge: > 48 hours
Subjective/Interval History
-
Date of Service: September 11, 2024
Objective Data
-
Labs:
Laboratory Results
09/11/24 09/11/2425
04:45 10:28 10:53
WBC 9.4
Hgb 11.9 L
Hct 36.7 L
Plt Count 179
Sodium 125 L D Cancelled Pending
Potassium 4.3 Cancelled Pending
Chloride 86 L Cancelled Pending
Carbon Dioxide 28 Cancelled Pending
BUN 27 H Cancelled Pending
Creatinine 0.9 Cancelled Pending
Glucose 195 H Cancelled Pending
Calcium 7.9 L Cancelled Pending
Total Bilirubin 0.7
AST 32
ALT 20
Alkaline Phosphatase 134 H
Vital Signs:
Vital Signs
Temp Pulse Resp BP Pulse Ox
101.5 F H 109 20 108/76 100
09/11/24 07:22 09/11/24 10:57 09/11/24 10:57 09/11/24 10:00 09/11/24 10:57
I&O
09/10/24 09/11/24 09/12/24
06:59 06:59 06:59
Intake Total 500 / 600 640 / 640
Output Total 300 / 300
Balance 200 / 300 640 / 640
Physical Exam
-
General: Well Developed and No Apparent Distress
HEENT: Normocephalic, Atraumatic and Moist Mucous Membranes
Respiratory: Rales and Rhonchi
Cardiac: Regular Rhythm and S1/S2; Negative Murmur, Rub or Gallop
GI: Soft, Nontender, Nondistended and Normal Bowel Sounds; Negative Organomegaly
Rectal: Deferred by Provider
Musculoskeletal: No Clubbing, No Cyanosis and No Edema
Skin: Negative Rash
Neuro: Nonfocal/Grossly Intact
--- NOTE | 2024-09-11 11:26 | CM ---
CM following re: discharge planning.
Reviewed pt's chart, met with pt and spoke to pt;s daughter Tiny over the phone and she stated she has POA and she will bring POA copy.
Pt is a 78 year old male admitted with primary dx of Acute hypoxic respiratory failure likely multifactorial
Per daughter, pt went to [facility] on 08/21/24 for a short term rehab and to transition to a director of managed services care. Pt's daughter stated she is the only child and she has Medical and Financial POA. Pt's daughter stated that a plan is to discharge pt back to
[facility] to continue on skilled services and for transition to a LTC.
CM spoke to [facility] liaison and she confirmed that pt requires total care, Fanny lift, was at [facility] for a short term, not a bed hold and she confirmed that pt will be accepted back to [facility] for a short term rehab and transition to a LTC.
D/C plan: return back to [facility] to continue on skilled services and for transition to a LTC.
CM will follow to assist pt with discharge back to [facility].
[2024-09-11] MEDS: LASIX 20 MG IV (11:29)
[2024-09-11 11:58] LABS: Blood Urea Nitrogen 25 mg/dl (9-20); Calcium 7.2 mg/dl (8.4-10.2); Carbon Dioxide 28 mmol/L (22-30); Chloride 100 mmol/L (98-107); Estimated Creatinine Clearance 102 ml/min; Glucose 216 mg/dl (70-99); Potassium 3.9 mmol/L (3.5-5.1); Sodium 137 mmol/L (135-145); eGFR > 60.00
[2024-09-11 12:40] LABS: Glucose - Point of Care 236 mg/dl (70-99)
[2024-09-11 12:50] LABS: NT-proBNP 1830 pg/ml
--- NOTE | 2024-09-11 15:47 | PTOTSP ---
Dysphagia Evaluation
Patient with acute on chronic risk factors for dysphagia (i.e., sepsis with tracheobronchitis, concern for CHF, acute AMS; PMH of COPD, GERD, RA). Patient failed 3 oz water test with interrupted drinking, overt coughing, and drop in Spo2. Risk for
aspiration complications elevated by non-ambulatory status and chronic immunosuppression.
Recommend:
1. Temporary NPO
2. Medications whole in puree
3. Oral care 3x daily
4. Hold aspiration risk hydration protocol due to AMS and current respiratory status
5. Will re-evaluate bedside to determine if appropriate to initiate a diet.
6. Patient would benefit from video swallow study to objectively assess oral/pharyngeal swallow but body habitus and limitations of size of fluoro suite are likely barriers.
[2024-09-11 17:36] LABS: Glucose - Point of Care 223 mg/dl (70-99)
--- NOTE | 2024-09-11 20:00 | PTCARENOTE ---
medical customer service representative, lethargic, arouses to voice, oriented x 3. Rectal probe temp 102.5F, pt not due for tylenol at this time. inc lg amt urine, turned, connie care, skin care, repositioned. POC discussed w pt, call cote in reach,
[2024-09-11] MEDS: LIPITOR 40 MG PO (20:38)
[2024-09-11] MEDS: LANTUS 0.4 UNITS SC (21:45)
--- NOTE | 2024-09-11 22:13 | PTCARENOTE ---
pt HR fluctuating up to 130-140s, comes back doen to 1teens-120s. also continues to run fever- Rectal probe 102.6F. pt given tylenol. tele monitor reading vtach at times. appears to be a wide AFib (pt has been in AFib)- EKG done- reading same as am
EKG. no complaints from pt. Made Nelli aware, will continue to monitor.
--- NOTE | 2024-09-11 22:34 | PTCARENOTE ---
pt appears to have small runs of VT at times as well as SURYANelli contacted again to see possible need for lab draw or additional orders. awaiting plan.
--- NOTE | 2024-09-11 23:25 | PTCARENOTE ---
pt continues to have frequent ectopy, another EKG done, Nelli made aware- BMP/Mg sent.
[2024-09-12] VITALS (52 sets, daily range): BP systolic 54–133; BP diastolic 43–109; PULSE 93–103; O2SAT 98; BMI 39.2
[2024-09-12 00:03] LABS: Glucose - Point of Care 200 mg/dl (70-99)
[2024-09-12 00:05] LABS: Blood Urea Nitrogen 28 mg/dl (9-20); Calcium 8.5 mg/dl (8.4-10.2); Carbon Dioxide 35 mmol/L (22-30); Chloride 93 mmol/L (98-107); Estimated Creatinine Clearance 83 ml/min; Glucose 204 mg/dl (70-99); Magnesium 1.3 mg/dl (1.6-2.3); Potassium 4.2 mmol/L (3.5-5.1); Sodium 136 mmol/L (135-145); eGFR > 60.00
[2024-09-12] MEDS: MAGNESIUM SULFATE 50 IV (01:31)
[2024-09-12 05:02] LABS: % Basophils 0.1 % (0-2); % Immature Granulocytes 0.7 % (0-0.5); % Lymphocytes 16.1 % (20.5-51.1); % Monocytes 5.8 % (1.7-9.3); % Neutrophils 77.3 % (42.2-75.2); Absolute Immature Granulocytes 0.1 10^3/uL (0-0.05); Absolute Lymphocytes 1.5 10^3/uL (1.2-3.4); Absolute Monocytes 0.6 10^3/uL (0.1-0.6); Absolute Neutrophils 7.3 10^3/uL (1.4-6.5); Hematocrit 35.6 % (39.0-52.0); Hemoglobin 11.5 g/dL (13.0-18.0); Mean Corp Hgb Conc. 32.3 g/dL (33.0-37.0); Mean Corpuscular Hgb 30.5 pg (27.0-31.0); Mean Corpuscular Volume 94.4 fL (80.0-94.0); Mean Platelet Volume 11.7 fL (7.4-10.4); Nucleated Red Blood Cells % 0 % (-); Platelet Count 162 10^3/uL (130-400); Red Blood Cell Count 3.77 10^6/uL (4.70-6.10); Red Cell Dist. Width 18.6 % (11.5-14.5); White Blood Cell Count 9.5 10^3/uL (4.8-10.8)
[2024-09-12] MEDS: ROCEPHIN 1000 MG IV (05:21)
[2024-09-12] MEDS: TYLENOL 650 MG PO (05:22)
[2024-09-12] MEDS: STERILE WATER FOR INJECTION 10 ML IV (05:22)
[2024-09-12 05:25] LABS: ALT (SGPT) 37 U/L (0-50); AST (SGOT) 48 U/L (17-59); Albumin 3.2 g/dl (3.5-5.0); Alkaline Phosphatase 130 U/L (38-126); Blood Urea Nitrogen 32 mg/dl (9-20); Calcium 8.4 mg/dl (8.4-10.2); Carbon Dioxide 33 mmol/L (22-30); Chloride 96 mmol/L (98-107); Estimated Creatinine Clearance 91 ml/min; Glucose 203 mg/dl (70-99); Potassium 4.2 mmol/L (3.5-5.1); Sodium 136 mmol/L (135-145); Total Bilirubin 0.6 mg/dl (0.2-1.3); Total Protein 6.4 g/dl (6.3-8.2); eGFR > 60.00
[2024-09-12 05:27] LABS: Magnesium 2.1 mg/dl (1.6-2.3)
[2024-09-12] MEDS: DUONEB 3 ML INH ×4 (07:20→20:16)
[2024-09-12] MEDS: NOVOLOG FLEXPEN SC (09:15)
[2024-09-12] MEDS: NOVOLOG FLEXPEN-MODERATE RESISTANCE 3 UNITS SC ×3 (09:15→17:30)
[2024-09-12] MEDS: NEURONTIN 800 MG PO ×3 (09:16→20:54)
[2024-09-12] MEDS: MUCINEX 1200 MG PO (09:17)
[2024-09-12] MEDS: PROTONIX 40 MG PO (09:18)
[2024-09-12] MEDS: PAMELOR 50 MG PO (09:18)
[2024-09-12] MEDS: VIBRAMYCIN 100 MG PO ×2 (09:18→20:54)
[2024-09-12] MEDS: CYMBALTA DELAYED RELEASE 60 MG PO (09:18)
[2024-09-12] MEDS: FLOMAX 0.4 MG PO (09:19)
[2024-09-12] MEDS: DELTASONE 5 MG PO (09:19)
[2024-09-12] MEDS: LEUCOVORIN 10 MG PO (09:19)
[2024-09-12] MEDS: XARELTO 20 MG PO (09:20)
[2024-09-12] MEDS: TOPROL XL 50 MG PO (09:20)
[2024-09-12] MEDS: THERAGRAN 1 TABLET PO (09:20)
[2024-09-12] MEDS: ZYLOPRIM 100 MG PO (09:21)
[2024-09-12] MEDS: ZESTRIL 20 MG PO (09:21)
[2024-09-12] MEDS: PROSCAR 5 MG PO (09:22)
[2024-09-12] MEDS: VITAMIN C 500 MG PO (09:22)
[2024-09-12 09:25] LABS: Glucose - Point of Care 217 mg/dl (70-99)
--- NOTE | 2024-09-12 10:00 | PTCARENOTE ---
pt awake and alert this am, afib on monitor , BP 107/79 , rectal temp 101.7 , he was seen by speech and able to eat and dysphagia 5 , pt was placed on atilio lift and place in chair , pt encouraged to cough and deep breath , he was originally on 6L
NC and weaned down to 2L NC , pt daughter updated on condition and plan of care
[2024-09-12] MEDS: LAC HYDRIN, AM LACTIN LOTION 1 APPLIC TOPICAL (10:28)
--- NOTE | 2024-09-12 10:41 | PTOTSP ---
Dysphagia Therapy
Impression: Patient with acute on chronic risk factors for dysphagia (i.e., sepsis with tracheobronchitis, concern for CHF, acute AMS; PMH of COPD, GERD, RA). Risk for aspiration complications elevated by non-ambulatory status and chronic
immunosuppression.
Mild oral stage differences noted with re-assessment without overt s/s of aspiration this date.
Recommend:
1. IDDSI Level 5 Minced and Moist, Thin
2. Medications whole in puree
3. Oral care 3x daily
4. Strategies: upright to 90 degrees, 1:1 supervision/assist, small single sips/bites, slow rate with breaks for breathing, hold PO if RR >30 or SpO2 <90%, reflux precautions
5. Dysphagia f/u at the acute care level for instruction in compensations and to determine if solid advancement appropriate based on oral skills.
[2024-09-12 11:39] LABS: Glucose - Point of Care 223 mg/dl (70-99)
[2024-09-12] MEDS: NOVOLOG FLEXPEN 5 UNITS SC ×2 (12:12→17:30)
--- NOTE | 2024-09-12 12:42 | CM ---
CM following re: discharge planning.
Reviewed pt's chart, met with pt . pt's daughter brought a copy of POA, placed on pt's chart.
Pt is admitted from [facility] where he was for a short term rehab, not a bed hold and per [facility] liaison, pt will be accepted back when medically stable. Pt's daughter is aware, she preferred pt returns back to [facility] to continue short term rehab and
possible transition to a LTC.
D/C plan: return back to [facility] to continue on skilled services and for possible transition to a LTC.
CM will follow to assist pt with discharge back to [facility].
--- NOTE | 2024-09-12 13:10 | W.PN.HOSP.TC ---
Today's Communication/Plan
-
Continue empiric antibiotics pending final cultures..
Repeat chest x-ray
US of the abdomen
Lower extremity Doppler as a part of workup for persistent fever
Advance diet with aspiration precautions
Physical therapy assessment while patient is nonweightbearing bilateral lower extremities.
Resume Bumex
Patient's daughter updated over the phone.
Assessment / Plan
Assessment / Plan
Impression
Patient is a 78y M with PMH significant for COPD, ASCVD, HTN and DM-II who presents to ED from local [place] for evaluation of cough and hypoxemia.
Acute hypoxic respiratory failure likely multifactorial
Sepsis present on admission
Acute tracheobronchitis
Abnormal urinalysis.
Clinical volume overload with concern for CHF
Hyponatremia
Other conditions:
Recent hospitalization to [facility] with bilateral lower extremity fractures
ASCVD.
Permanent atrial fibrillation baseline anticoagulation with Xarelto.
Benign hypertension
IDDM.
Asthma/COPD.
Obstructive sleep apnea on CPAP at night.
Rheumatoid arthritis.
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
Chronic back pain pain
Peripheral neuropathy
BPH.
History of UTI with Serratia.
Morbid obesity
Plan:
Acute hypoxic respiratory failure likely multifactorial and suspect in the settings of acute tracheobronchitis as well as possible volume overload and CHF.
Reported hypoxia with pulse ox of 80% on room air.
Wean off oxygen as tolerates
Sepsis present on admission.
Fever, leukocytosis
Chest x-ray with increased vascularity, although with no focal infiltrates
COVID/influenza negative.
Abnormal urinalysis.
Prior history of Serratia UTI.
Blood cultures negative to date
Urine cultures indicative of contaminated
CT scan of the abdomen pelvis with possible 4 mm calcification pancreatic head versus CBD stone. Normal LFTs. Check US of the abdomen.
Empiric antibiotics ceftriaxone/doxycycline
Patient's valuation without overt aspiration. Diet has been advanced as recommended
Concern for acute CHF
Clinically volume overloaded
Prior CHF BNP pending
Echocardiogram 08/18: LVEF 60-65%. LVH. Diastolic function intermediate with A-fib. Moderately dilated left atrium.
Repeated echo without significant changes
Hold further IV fluids.
Single dose of IV Lasix 20 mg provided on 09/11 to
Resume Bumex. Monitor volume status closely
Hyponatremia. Sodium 125
Clinically volume overloaded.
TSH within normal limits.
Improved
Permanent atrial fibrillation.
Noted elevated ventricular rates in the settings of hypoxia
Continue preadmission metoprolol
Continue anticoagulation with Xarelto.
ASCVD.
Essential hypertension
Continue metoprolol, lisinopril, statin
Update echocardiogram as above
IDDM.
Hemoglobin A1c 8.1.
While n.p.o. continue reduced dose of Lantus/NovoLog AC.
Basal bolus protocol.
Adjust regimen accordingly.
Rheumatoid arthritis.
Chronic immunosuppression with methotrexate and prednisone.
Hold methotrexate acutely while pending workup for sepsis.
Asthma / COPD
- Some scattered wheezing - but improves with cough. Doubt acute exacerbation.
- Inhaled medications including nebs ATC and PRN.
- Follow for clinical changes.
JOHNNIE
- Stable. Continue nightly CPAP.
BPH
- Stable. Continue tamsulosin.
- Bladder scan protocol.
Morbid Obesity due to excess calories
- Affects all aspects of care.
- Healthy diet.
- Current ability for activity / exercise is markedly limited given NWB status / LE injuries.
Bilateral LE Fractures
- Uncertain of exact fracture location (femoral condyle, patella, etc).
- Non-weight bearing on both LEs per NH record and confirmed with patient.
- Uses Fanny for transfers to chair / wheelchair / etc.
- PT / OT evaluations.
- Follow-up with Ortho as an outpatient as planned.
Obtain medical records from recent hospitalization.
Full code.
DVT prophylaxis Xarelto
Anticipated Discharge: 24 - 48 hours
Subjective/Interval History
-
Date of Service: September 12, 2024
Objective Data
-
Labs:
Laboratory Results
09/12/24
04:41
WBC 9.5
Hgb 11.5 L
Hct 35.6 L
Plt Count 162
Sodium 136
Potassium 4.2
Chloride 96 L
Carbon Dioxide 33 H
BUN 32 H
Creatinine 1.0
Glucose 203 H
Calcium 8.4
Total Bilirubin 0.6
AST 48
ALT 37
Alkaline Phosphatase 130 H
Vital Signs:
Vital Signs
Temp Pulse Resp BP Pulse Ox
99.5 F 105 20 110/72 98
09/12/24 13:07 09/12/24 11:23 09/12/24 11:23 09/12/24 09:21 09/12/24 11:23
I&O
09/11/24 09/12/24 09/13/24
06:59 06:59 06:59
Intake Total 500 / 600 640 / 640
Output Total 300 / 300
Balance 200 / 300 640 / 640
Physical Exam
-
General: Well Developed and No Apparent Distress
HEENT: Normocephalic, Atraumatic and Moist Mucous Membranes
Respiratory: Rales and Rhonchi
Cardiac: Regular Rhythm and S1/S2; Negative Murmur, Rub or Gallop
GI: Soft, Nontender, Nondistended and Normal Bowel Sounds; Negative Organomegaly
Rectal: Deferred by Provider
Musculoskeletal: No Clubbing, No Cyanosis and No Edema
Skin: Negative Rash
Neuro: Nonfocal/Grossly Intact
[2024-09-12] MEDS: BUMEX 1 MG PO (14:46)
[2024-09-12 15:42] LABS: Osmolality Urine 520 mOsm/kg (300-900)
[2024-09-12] MEDS: NSS 250 IV (16:00)
[2024-09-12] MEDS: NEURONTIN PO (17:35)
[2024-09-12 17:38] LABS: Glucose - Point of Care 237 mg/dl (70-99)
[2024-09-12] MEDS: LEVOPHED 250 IV (17:52)
--- NOTE | 2024-09-12 18:05 | PTCARENOTE ---
pt had no urine output , bladder scanned for 425 and cath for 425 at 1500, he became drowsy and placed back to bed at 1530 , his BP started dropping 80/60-70/40 , Dr Mckeon notified and pt was given 250ml NSS bolus , there was no improvement on BP
, Dr Strong notified and now pt started on Levophed for map goal of 65, , he also was placed on cpap due to drowsiness
[2024-09-12] MEDS: TOPROL XL PO (20:53)
[2024-09-12] MEDS: HIPREX 1 GRAM PO (20:54)
[2024-09-12] MEDS: LIPITOR 40 MG PO (20:54)
[2024-09-12 21:20] LABS: Glucose - Point of Care 259 mg/dl (70-99)
[2024-09-12] MEDS: LANTUS 0.54 UNITS SC (21:55)
[2024-09-13] VITALS (44 sets, daily range): BP systolic 81–131; BP diastolic 53–94; BMI 39.2
[2024-09-13] MEDS: LEVOPHED 250 IV (00:47)
[2024-09-13 05:58] LABS: % Basophils 0.2 % (0-2); % Immature Granulocytes 0.4 % (0-0.5); % Monocytes 8.1 % (1.7-9.3); % Neutrophils 70.3 % (42.2-75.2); Absolute Lymphocytes 2.2 10^3/uL (1.2-3.4); Absolute Monocytes 0.8 10^3/uL (0.1-0.6); Absolute Neutrophils 7.3 10^3/uL (1.4-6.5); Hematocrit 34.6 % (39.0-52.0); Hemoglobin 11.1 g/dL (13.0-18.0); Mean Corp Hgb Conc. 32.1 g/dL (33.0-37.0); Mean Corpuscular Hgb 30.7 pg (27.0-31.0); Mean Corpuscular Volume 95.8 fL (80.0-94.0); Mean Platelet Volume 11.4 fL (7.4-10.4); Nucleated Red Blood Cells % 0 % (-); Platelet Count 164 10^3/uL (130-400); Red Blood Cell Count 3.61 10^6/uL (4.70-6.10); Red Cell Dist. Width 18.3 % (11.5-14.5); White Blood Cell Count 10.4 10^3/uL (4.8-10.8)
[2024-09-13 06:27] LABS: ALT (SGPT) 37 U/L (0-50); AST (SGOT) 47 U/L (17-59); Albumin 3.2 g/dl (3.5-5.0); Alkaline Phosphatase 124 U/L (38-126); Blood Urea Nitrogen 48 mg/dl (9-20); Calcium 8.3 mg/dl (8.4-10.2); Carbon Dioxide 28 mmol/L (22-30); Chloride 95 mmol/L (98-107); Estimated Creatinine Clearance 65 ml/min; Glucose 301 mg/dl (70-99); Sodium 132 mmol/L (135-145); Total Bilirubin 0.7 mg/dl (0.2-1.3); Total Protein 6.4 g/dl (6.3-8.2); eGFR 51.13
[2024-09-13] MEDS: ROCEPHIN 1000 MG IV (06:29)
[2024-09-13] MEDS: STERILE WATER FOR INJECTION 10 ML IV (06:30)
[2024-09-13] MEDS: DUONEB 3 ML INH ×4 (07:23→20:30)
[2024-09-13 07:37] LABS: Glucose - Point of Care 247 mg/dl (70-99)
[2024-09-13] MEDS: TOPROL XL PO (08:57)
[2024-09-13] MEDS: ZESTRIL PO (08:57)
[2024-09-13] MEDS: VIBRAMYCIN 100 MG PO ×2 (08:59→20:29)
[2024-09-13] MEDS: VITAMIN C 500 MG PO (08:59)
[2024-09-13] MEDS: PAMELOR 50 MG PO (08:59)
[2024-09-13] MEDS: XARELTO 20 MG PO (08:59)
[2024-09-13] MEDS: MUCINEX 1200 MG PO (08:59)
[2024-09-13] MEDS: NEURONTIN 800 MG PO ×3 (08:59→21:55)
[2024-09-13] MEDS: PROTONIX 40 MG PO (08:59)
[2024-09-13] MEDS: CYMBALTA DELAYED RELEASE 60 MG PO (08:59)
[2024-09-13] MEDS: LEUCOVORIN 10 MG PO (08:59)
[2024-09-13] MEDS: ZYLOPRIM 100 MG PO (08:59)
[2024-09-13] MEDS: THERAGRAN 1 TABLET PO (08:59)
[2024-09-13] MEDS: FLOMAX 0.4 MG PO (09:00)
[2024-09-13] MEDS: PROSCAR 5 MG PO (09:00)
[2024-09-13] MEDS: DELTASONE 5 MG PO (09:00)
[2024-09-13] MEDS: HIPREX 1 GRAM PO ×2 (09:00→20:29)
[2024-09-13] MEDS: NOVOLOG FLEXPEN 5 UNITS SC ×2 (09:01→12:20)
[2024-09-13] MEDS: NOVOLOG FLEXPEN-MODERATE RESISTANCE 3 UNITS SC (09:02)
[2024-09-13] MEDS: LAC HYDRIN, AM LACTIN LOTION 1 APPLIC TOPICAL (09:08)
--- NOTE | 2024-09-13 09:43 | PTOTSP ---
SPEECH THERAPY SWALLOW FOLLOW UP NOTE:
Patient continues to exhibit clinical signs of oropharyngeal dysphagia, likely chronic related to COPD, GERD, RA, and acutely exacerbated by sepsis 2/2 tracheobronchitis, CHF. Patient now with CXR concerning for worsening Left basilar pneumonia. No
overt signs of aspiration at bedside across textures, though unable to exclude aspiration given significant dysphagia risk factors, including tenuous respiratory/pulmonary status and confusion. Given concerning CXR and tenuous respiratory status,
recommending diet downgrade to Mildly-thick liquids, continue IDDSI Level 5 Minced and Moist texture. Continue medications whole in puree. Recommend close monitoring for any signs of aspiration (coughing, fever, elevated WBC), and D/C oral diet if
ANY decline in mental or respiratory status (LOW threshold to make NPO). Aspiration precautions: Upright positioning; 100% supervision and 1:1 assistance; Small sips/bites; Slow rate of intake; Only feed when awake/alert; Take breaks during meals;
Do not eat when short of breath. Oral care 3x/day. Would recommend considering instrumental assessment of swallowing via VSE, though suspect patient is not a candidate given body habitus. ST to continue to follow closely. Recommendations discussed
with Dr. Pantoja and RN.
RECOMMEND:
1) diet downgrade to Mildly-thick liquids, continue IDDSI Level 5 Minced and Moist texture
2) medications whole in puree
3) Aspiration precautions: Upright positioning; 100% supervision and 1:1 assistance; Small sips/bites; Slow rate of intake; Only feed when awake/alert; Take breaks during meals; Do not eat when short of breath. Recommend close monitoring for any
signs of aspiration (coughing, fever, elevated WBC), and D/C oral diet if ANY decline in mental or respiratory status (LOW threshold to make NPO)
4) Oral care 3x/day
5) Would recommend considering instrumental assessment of swallowing via VSE, though suspect patient is not a candidate given body habitus
6) ST to follow
--- NOTE | 2024-09-13 09:56 | PTCARENOTE ---
pt awake and alert this am , forgetful at times , orientation improved since yesterday unaware of recent events leading to hospitalization, Afib on monitor 90s , BP 126/80 , map goal 65 continues on Levophed at 6mcg , lungs diminished with weak
moist productive cough , on 4L NC sats 93% , pt seen by speech therapy and suggested thick liquids with dysphagia diet , pt had no urine output overnight , he did void in urinal this am 500ml
[2024-09-13] MEDS: NOVOLOG FLEXPEN-MODERATE RESISTANCE 7 UNITS SC (12:20)
[2024-09-13 12:29] LABS: Glucose - Point of Care 304 mg/dl (70-99)
--- NOTE | 2024-09-13 13:22 | CM ---
CM following re: discharge planning.
Reviewed pt's chart, met with pt. Pt's daughter and granddaughter at bedside.
Pt's daughter brought to me her concerns regarding [facility] will take the pt back because she did not pay for a bed hold. Pt's daughter asked to discuss alternative SNF options in case [facility] will not take the pt back. A list of SNFs provided and pt's
daughter preferred [facility]. A referral to [facility] made.
At this point, pt's daughter stated [facility] is number one choice and if [facility] offers a bed she will decide then.
D/C plan: [facility] or [facility]. Awaiting for determination from [facility]. Per [facility] liaison, pt will be accepted back when medically stable.
CM will follow with discharge plan updates as hospitalization progresses
[2024-09-13 14:04] LABS: Venous Blood Gas B.E. 2.1 mmol/L (-4 to +4); Venous Blood Gas HCO3 28.2 mmol/L (22-27); Venous Blood Gas O2 Sat % 89.4 %; Venous Blood Gas pCO2 50 mmHg (35-48); Venous Blood Gas pH 7.36 (7.32-7.43); Venous Blood Gas pO2 62 mmHg (30-50)
--- NOTE | 2024-09-13 14:23 | W.PN.HOSP.TC ---
Today's Communication/Plan
-
Continue antibiotics.
Monitor temperature curve.
CT head (fluctuating mental status, aspiration risk)
Wean off vasopressor.
Hold lisinopril and Bumex.
Continue metoprolol with caution.
Continuing Xarelto.
Adjust diet with aspiration precautions with addition of thickened liquids.
Avoid oversedation. Reduce gabapentin.
Continue Ultram with caution for severe pain. Hold oxycodone
BiPAP at night
Physical therapy evaluation
Assessment / Plan
Assessment / Plan
Impression
Patient is a 78y M with PMH significant for COPD, ASCVD, HTN and DM-II who presents to ED from local [place] for evaluation of cough and hypoxemia.
Acute hypoxic respiratory failure likely multifactorial
Sepsis present on admission
Septic shock requiring vasopressor
Left lower lobe pneumonia
Aspiration risk due to fluctuating mental status
Abnormal urinalysis.
Clinical volume overload with concern for CHF
Hyponatremia
Other conditions:
Recent hospitalization to [facility] with bilateral lower extremity fractures
ASCVD.
Permanent atrial fibrillation baseline anticoagulation with Xarelto.
Benign hypertension
IDDM.
Asthma/COPD.
Obstructive sleep apnea on CPAP at night.
Rheumatoid arthritis.
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
Chronic back pain pain
Peripheral neuropathy
BPH.
History of UTI with Serratia.
Morbid obesity
Plan:
Acute hypoxic respiratory failure likely multifactorial and suspect in the settings of acute tracheobronchitis as well as possible volume overload and CHF.
Underlying COPD/obstructive sleep apnea/obesity hypoventilation disorder.
Reported hypoxia with pulse ox of 80% on room air.
In review of VBG (unable to draw ABG) as well as chronic compensated alkalosis suspect hypercarbic respiratory failure
Wean off oxygen as tolerates
Continue BiPAP at night
Avoid oversedation
Altered mental status secondary toxic metabolic encephalopathy due to infection as well as hypercarbia.
CT scan of the head.
Continue BiPAP.
Avoid oversedation. Decrease gabapentin to 800 mg 3 times daily.
Continue Ultram as needed. Hold oxycodone
Sepsis present on admission.
Fever, leukocytosis
Chest x-ray with increased vascularity, although with no focal infiltrates
Follow-up chest x-ray with apparent left lower lobe infiltrate
COVID/influenza negative.
Abnormal urinalysis. Urine culture indicative of contaminated
Prior history of Serratia UTI.
Blood cultures negative to date
CT scan of the abdomen pelvis with possible 4 mm calcification pancreatic head versus CBD stone. Normal LFTs. Check US of the abdomen.
Ultrasound of the abdomen with CBD at the normal size with no obstruction.
Empiric antibiotics ceftriaxone/doxycycline
Remains at the aspiration risk given fluctuating mental status. Speech and swallow following. Diet adjusted with aspiration precautions.
Concern for acute CHF upon admission
Clinically volume overloaded
Elevated pro CHF BNP
Echocardiogram 08/18: LVEF 60-65%. LVH. Diastolic function intermediate with A-fib. Moderately dilated left atrium.
Repeated echo without significant changes
Single dose of IV Lasix 20 mg provided on 09/11
Given marginal BP, hold Bumex, lisinopril, continue metoprolol with caution.
Wean off norepinephrine
Hyponatremia. Sodium 125
Clinically volume overloaded.
TSH within normal limits.
Improved
Permanent atrial fibrillation.
Noted elevated ventricular rates in the settings of hypoxia
Continue preadmission metoprolol
Continue anticoagulation with Xarelto.
ASCVD.
Essential hypertension
Continue metoprolol, lisinopril, statin
Update echocardiogram as above
IDDM.
Hemoglobin A1c 8.1.
Diet has been advanced
Lantus/NovoLog adjusting dose.
Basal bolus protocol.
Adjust regimen accordingly.
Rheumatoid arthritis.
Chronic immunosuppression with methotrexate and prednisone.
Hold methotrexate acutely while pending workup for sepsis.
BPH
- Stable. Continue tamsulosin.
- Bladder scan protocol.
Morbid Obesity due to excess calories
- Affects all aspects of care.
- Healthy diet.
- Current ability for activity / exercise is markedly limited given NWB status / LE injuries.
Bilateral LE Fractures
- Uncertain of exact fracture location (femoral condyle, patella, etc).
- Non-weight bearing on both LEs per NH record and confirmed with patient.
- Uses Fanny for transfers to chair / wheelchair / etc.
- PT / OT evaluations.
- Follow-up with Ortho as an outpatient as planned.
Obtain medical records from recent hospitalization.
Full code.
DVT prophylaxis Xarelto
Anticipated Discharge: > 48 hours
Subjective/Interval History
-
Date of Service: September 13, 2024
Objective Data
-
Labs:
Laboratory Results
09/13/24 09/13/24 09/13/24
04:45 05:47 11:02
WBC 10.4
Hgb 11.1 L
Hct 34.6 L
Plt Count 164
HCO3 Cancelled
Sodium Cancelled 132 L
Potassium Cancelled 4.0
Chloride Cancelled 95 L
Carbon Dioxide Cancelled 28
BUN Cancelled 48 H
Creatinine Cancelled 1.4 H
Glucose Cancelled 301 H
Calcium Cancelled 8.3 L
Total Bilirubin Cancelled 0.7
AST Cancelled 47
ALT Cancelled 37
Alkaline Phosphatase Cancelled 124
Vital Signs:
Vital Signs
Temp Pulse Resp BP Pulse Ox
99.2 F 106 18 107/81 93
09/13/24 11:00 09/13/24 11:51 09/13/24 11:51 09/13/24 09:30 09/13/24 11:51
I&O
0109/13/24 09/14/24
06:59 06:59 06:59
Intake Total 640 / 640 780 / 780 840.0 / 840.0
Output Total 425 / 425 500 / 500
Balance 640 / 640 355 / 355 340.0 / 340.0
Physical Exam
-
General: Well Developed and No Apparent Distress
HEENT: Normocephalic, Atraumatic and Moist Mucous Membranes
Respiratory: Rales and Rhonchi
Cardiac: Regular Rhythm and S1/S2; Negative Murmur, Rub or Gallop
GI: Soft, Nontender, Nondistended and Normal Bowel Sounds; Negative Organomegaly
Rectal: Deferred by Provider
Musculoskeletal: No Clubbing, No Cyanosis and No Edema
Skin: Negative Rash
Neuro: Nonfocal/Grossly Intact
[2024-09-13] MEDS: DRISDOL (VITAMIN D2) 50000 UNITS PO (15:38)
--- NOTE | 2024-09-13 15:58 | PN.CDI ---
CDI
- -
CDI:
Physician Documentation Request
Admit Date: 09/11/24 01:42
Dear Doctor Scarlett,
Please review the following and provide your response in the progress notes.
Clinical Indicators:
Pt admitted with Sepsis 2/2 Tracheobronchitis/LLL PNA/ Acute Hypoxic respiratory Failure
Progress notes 09/11-09-13, ' Clinical volume overload with concern for CHF...Echocardiogram 08/18: LVEF 60-65%. LVH. Diastolic function intermediate with A-fib...Single dose of IV Lasix 20 mg provided on 09/11...'
BNP 1830 /ECHO - LV ejection fraction is 55-60%
Please provide further specificity regarding the most likely Type/Acuity of CHF you are evaluating, treating or monitoring.
Acute Diastolic CHF
Acute on Chronic Diastolic CHF
Other ( please specify)
Use of terms such as suspected, likely, concern for, or probable (associated with a specific diagnosis that is being evaluated, monitored, or treated as if it exists) are acceptable and can be coded in the inpatient setting, when documented at the
time of discharge.
Thank you,
Cherelle Deras RN
CDI Specialist
[place] [facility]
Please use your independent medical judgment in providing your response.
--- NOTE | 2024-09-13 16:04 | PN.CDI ---
CDI
- -
CDI:
Physician Documentation Request
Admit Date: 09/11/24 01:42
Dear Doctor Scarlett ,
Please review the following and provide your response in the progress notes.
Clinical Indicators:
Pt admitted with Sepsis 2/2 Tracheobronchitis/LLL PNA/ Acute Hypoxic respiratory Failure
Pt now with septic shock on pressures
Renal functions are as below /Pt did get IVFs
09/11/24 09/11/24 09/12/24
11:28 23:31 04:41
Creatinine 0.9 1.1 1.0
09/13/24
05:47
Creatinine 1.4 H
Clarify which of the following accurately represents the patient's renal status:
DEONDRE
Abnormal lab value only
Other ( please specify)
Criteria for DEONDRE*
1 Increase in serum creatinine by > or = to 0.3 mg/dL (> or = to 26.5 micromol/L) within 48 hours, OR
2 Increase in serum creatinine to > or = to 1.5 times baseline, which is known or presumed to have occurred within 7 days, OR
3 Urine volume < 0.5 nL/kg/hour for six hours
Use of terms such as suspected, likely, concern for, or probable (associated with a specific diagnosis that is being evaluated, monitored, or treated as if it exists) are acceptable and can be coded in the inpatient setting, when documented at the
time of discharge.
Thank you,
Cherelle Deras RN
CDI Specialist
[place] [employer]
Please use your independent medical judgment in providing your response.
*Source: Kidney Disease: Improving Global Outcomes (KDIGO) 2012
[2024-09-13] MEDS: NOVOLOG FLEXPEN-MODERATE RESISTANCE 5 UNITS SC (17:10)
[2024-09-13] MEDS: NOVOLOG FLEXPEN 10 UNITS SC (17:10)
[2024-09-13 17:20] LABS: Glucose - Point of Care 261 mg/dl (70-99)
--- NOTE | 2024-09-13 17:45 | PTCARENOTE ---
pt blood glucose up to 300s x 2 today , Dr Kwon notified by pharmacist , pt now has increase in insulin with meals , pt oob to chair with lift device for 5 hours , off of Levophed since 1200
--- NOTE | 2024-09-13 19:00 | PTCARENOTE ---
Cannot verify accuracy of vital signs captured prior to 1900.
[2024-09-13] MEDS: TOPROL XL 50 MG PO (20:29)
[2024-09-13] MEDS: LIPITOR 40 MG PO (21:55)
[2024-09-13 22:08] LABS: Glucose - Point of Care 264 mg/dl (70-99)
[2024-09-13] MEDS: LANTUS 0.54 UNITS SC (22:49)
[2024-09-14] VITALS (34 sets, daily range): BP systolic 84–135; BP diastolic 56–97; PULSE 81–101; BMI 36.5
--- NOTE | 2024-09-14 | PTCARENOTE ---
Assumed care of patient at 1900, nursing assessment completed and as documented. Ox3, on 3L NC sats 95-97% lung sounds coarse with expiratory wheezing, Afib on monitor rates 100-110's, positive but weak pedal pulses present. Abdomen round and obese
with positive bowel sounds, patient had moderate watery BM. Urinal at bedside and requires assistance at times, 600mls of dark yellow urine emptied. B/L leg braces removed for skin check, warm and red but intact with foam in place to RLE from prior
shift. Patient repositioned in bed, linens changed underneath, CHG bath performed. Call cote within reach, VSS, care ongoing.
[2024-09-14 05:12] LABS: % Basophils 0.1 % (0-2); % Immature Granulocytes 0.3 % (0-0.5); % Lymphocytes 23.7 % (20.5-51.1); % Monocytes 7.9 % (1.7-9.3); Absolute Lymphocytes 1.7 10^3/uL (1.2-3.4); Absolute Monocytes 0.6 10^3/uL (0.1-0.6); Hematocrit 30.9 % (39.0-52.0); Hemoglobin 10.1 g/dL (13.0-18.0); Mean Corp Hgb Conc. 32.7 g/dL (33.0-37.0); Mean Corpuscular Hgb 30.7 pg (27.0-31.0); Mean Corpuscular Volume 93.9 fL (80.0-94.0); Mean Platelet Volume 11.3 fL (7.4-10.4); Nucleated Red Blood Cells % 0 % (-); Platelet Count 146 10^3/uL (130-400); Red Blood Cell Count 3.29 10^6/uL (4.70-6.10); White Blood Cell Count 7.4 10^3/uL (4.8-10.8)
[2024-09-14 05:18] LABS: Blood Urea Nitrogen 46 mg/dl (9-20); Calcium 8.6 mg/dl (8.4-10.2); Carbon Dioxide 27 mmol/L (22-30); Chloride 96 mmol/L (98-107); Estimated Creatinine Clearance 91 ml/min; Glucose 212 mg/dl (70-99); Potassium 3.9 mmol/L (3.5-5.1); Sodium 133 mmol/L (135-145); eGFR > 60.00
[2024-09-14] MEDS: ROCEPHIN 1000 MG IV (05:40)
[2024-09-14] MEDS: STERILE WATER FOR INJECTION 10 ML IV (05:40)
[2024-09-14] MEDS: DUONEB 3 ML INH ×4 (07:35→20:59)
[2024-09-14 08:25] LABS: Glucose - Point of Care 214 mg/dl (70-99)
[2024-09-14] MEDS: MUCINEX 1200 MG PO (09:01)
[2024-09-14] MEDS: LEUCOVORIN 10 MG PO (09:02)
[2024-09-14] MEDS: FLOMAX 0.4 MG PO (09:03)
[2024-09-14] MEDS: TOPROL XL 50 MG PO ×2 (09:03→20:33)
[2024-09-14] MEDS: PROTONIX 40 MG PO (09:03)
[2024-09-14] MEDS: HIPREX 1 GRAM PO ×2 (09:03→20:34)
[2024-09-14] MEDS: VITAMIN C 500 MG PO (09:03)
[2024-09-14] MEDS: PAMELOR 50 MG PO (09:03)
[2024-09-14] MEDS: VIBRAMYCIN 100 MG PO ×2 (09:03→20:35)
[2024-09-14] MEDS: PROSCAR 5 MG PO (09:04)
[2024-09-14] MEDS: DELTASONE 5 MG PO (09:04)
[2024-09-14] MEDS: THERAGRAN 1 TABLET PO (09:04)
[2024-09-14] MEDS: XARELTO 20 MG PO (09:04)
[2024-09-14] MEDS: NEURONTIN 800 MG PO ×3 (09:04→22:32)
[2024-09-14] MEDS: CYMBALTA DELAYED RELEASE 60 MG PO (09:04)
[2024-09-14] MEDS: LAC HYDRIN, AM LACTIN LOTION 1 APPLIC TOPICAL (09:06)
--- NOTE | 2024-09-14 09:23 | W.PN.HOSP.TC ---
Today's Communication/Plan
-
titrate insulin
continue Abx
monitor vitals
PT/OT as able
Assessment / Plan
Assessment / Plan
Impression
Patient is a 78y M with PMH significant for COPD, ASCVD, HTN and DM-II who presents to ED from local [place] for evaluation of cough and hypoxemia.
Acute hypoxic respiratory failure likely multifactorial
Sepsis present on admission
Septic shock requiring vasopressor
Left lower lobe pneumonia
Aspiration risk due to fluctuating mental status
Abnormal urinalysis.
Clinical volume overload with concern for CHF
Hyponatremia
Other conditions:
Recent hospitalization to [facility] with bilateral lower extremity fractures
ASCVD.
Permanent atrial fibrillation baseline anticoagulation with Xarelto.
Benign hypertension
IDDM.
Asthma/COPD.
Obstructive sleep apnea on CPAP at night.
Rheumatoid arthritis.
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
Chronic back pain pain
Peripheral neuropathy
BPH.
History of UTI with Serratia.
Morbid obesity
Plan:
Acute hypoxic respiratory failure likely multifactorial and suspect in the settings of acute tracheobronchitis as well as possible volume overload and CHF.
Underlying COPD/obstructive sleep apnea/obesity hypoventilation disorder.
Reported hypoxia with pulse ox of 80% on room air.
In review of VBG (unable to draw ABG) as well as chronic compensated alkalosis suspect hypercarbic respiratory failure
Wean off oxygen as tolerates
Continue BiPAP at night
Avoid oversedation
Altered mental status secondary toxic metabolic encephalopathy due to infection as well as hypercarbia.
CT scan of the head.
Continue BiPAP.
Avoid oversedation. Decrease gabapentin to 800 mg 3 times daily.
Continue Ultram as needed. Hold oxycodone
Sepsis present on admission.
Fever, leukocytosis
Chest x-ray with increased vascularity, although with no focal infiltrates
Follow-up chest x-ray with apparent left lower lobe infiltrate
COVID/influenza negative.
Abnormal urinalysis. Urine culture indicative of contaminated
Prior history of Serratia UTI.
Blood cultures negative to date
CT scan of the abdomen pelvis with possible 4 mm calcification pancreatic head versus CBD stone. Normal LFTs. Check US of the abdomen.
Ultrasound of the abdomen with CBD at the normal size with no obstruction.
Empiric antibiotics ceftriaxone/doxycycline
Remains at the aspiration risk given fluctuating mental status. Speech and swallow following. Diet adjusted with aspiration precautions.
Concern for acute CHF upon admission
Clinically volume overloaded
Elevated pro CHF BNP
Echocardiogram 08/18: LVEF 60-65%. LVH. Diastolic function intermediate with A-fib. Moderately dilated left atrium.
Repeated echo without significant changes
Single dose of IV Lasix 20 mg provided on 09/11
Given marginal BP, hold Bumex, lisinopril, continue metoprolol with caution.
Wean off norepinephrine
Hyponatremia. Sodium 125
Clinically volume overloaded.
TSH within normal limits.
Improved
Permanent atrial fibrillation.
Noted elevated ventricular rates in the settings of hypoxia
Continue preadmission metoprolol
Continue anticoagulation with Xarelto.
ASCVD.
Essential hypertension
Continue metoprolol, lisinopril, statin
Update echocardiogram as above
IDDM.
Hemoglobin A1c 8.1.
Diet has been advanced
Lantus/NovoLog adjusting dose.
Basal bolus protocol.
Adjust regimen accordingly.
Rheumatoid arthritis.
Chronic immunosuppression with methotrexate and prednisone.
Hold methotrexate acutely while pending workup for sepsis.
BPH
- Stable. Continue tamsulosin.
- Bladder scan protocol.
Morbid Obesity due to excess calories
- Affects all aspects of care.
- Healthy diet.
- Current ability for activity / exercise is markedly limited given NWB status / LE injuries.
Bilateral LE Fractures
- Uncertain of exact fracture location (femoral condyle, patella, etc).
- Non-weight bearing on both LEs per NH record and confirmed with patient.
- Uses Fanny for transfers to chair / wheelchair / etc.
- PT / OT evaluations.
- Follow-up with Ortho as an outpatient as planned.
Obtain medical records from recent hospitalization.
Full code.
DVT prophylaxis Xarelto
Anticipated Discharge: > 48 hours
Subjective/Interval History
-
Date of Service: September 14, 2024
no new complaints
on RA currently
Objective Data
-
Labs:
Laboratory Results
09/14/24
04:33
WBC 7.4
Hgb 10.1 L
Hct 30.9 L
Plt Count 146
Sodium 133 L
Potassium 3.9
Chloride 96 L
Carbon Dioxide 27
BUN 46 H
Creatinine 1.0
Glucose 212 H
Calcium 8.6
Vital Signs:
Vital Signs
Temp Pulse Resp BP Pulse Ox
97.7 F 93 17 107/65 90
09/14/24 07:33 09/14/24 07:38 09/14/24 07:38 09/14/24 07:30 09/14/24 07:38
I&O
09/13/24 09/14/24 09/15/24
06:59 06:59 06:59
Intake Total 780 / 780 1820.0 / 1820.0
Output Total 425 / 425 1400 / 1400 550 / 550
Balance 355 / 355 420.0 / 420.0 -550 / -550
Physical Exam
-
General: No Apparent Distress and Morbidly Obese
HEENT: Normocephalic and Atraumatic
Respiratory: Rhonchi (mild)
Cardiac: Regular Rhythm and S1/S2
GI: Soft and Nontender
Neuro: AO x 3
Psych: Calm
Data Reviewed
-
Total Time Spent with Patient (in minutes): 42
Labs: Labs Reviewed by me
[2024-09-14] MEDS: ZYLOPRIM 100 MG PO (09:49)
[2024-09-14] MEDS: NOVOLOG FLEXPEN SC (09:58)
[2024-09-14] MEDS: NOVOLOG FLEXPEN-MODERATE RESISTANCE 3 UNITS SC ×3 (10:34→17:37)
[2024-09-14] MEDS: NOVOLOG FLEXPEN 12 UNITS SC ×3 (10:34→17:37)
[2024-09-14 12:19] LABS: Glucose - Point of Care 218 mg/dl (70-99)
--- NOTE | 2024-09-14 17:07 | PTCARENOTE ---
Patient transferred from ICU into room 2124. Patient AAOX3, VSS, transferred on bariatric bed. BiPAP in room. B/L LE braces on patient. Patient oriented to room and call kera, states no concerns at this time.
--- NOTE | 2024-09-14 17:08 | TRANSFER ---
Patient transferred to [address] [place], [place] [address]Ox3 reports no discomfort at this time. VS within normal limits. All personal belonging from room with patient. MORGAN Sun at bedside for hand off.
[2024-09-14 17:13] LABS: Glucose - Point of Care 231 mg/dl (70-99)
[2024-09-14 21:42] LABS: Glucose - Point of Care 208 mg/dl (70-99)
[2024-09-14] MEDS: LIPITOR 40 MG PO (22:32)
[2024-09-14] MEDS: LANTUS 0.58 UNITS SC (22:32)
[2024-09-15] VITALS (7 sets, daily range): BP systolic 119–156; BP diastolic 80–99; PULSE 79; BMI 39.7
[2024-09-15] MEDS: ROCEPHIN 1000 MG IV (05:07)
[2024-09-15] MEDS: STERILE WATER FOR INJECTION 10 ML IV (05:07)
[2024-09-15 06:36] LABS: Hemoglobin 10.6 g/dL (13.0-18.0); Mean Corp Hgb Conc. 33.1 g/dL (33.0-37.0); Mean Corpuscular Hgb 30.8 pg (27.0-31.0); Mean Platelet Volume 12.1 fL (7.4-10.4); Platelet Count 165 10^3/uL (130-400); Red Blood Cell Count 3.44 10^6/uL (4.70-6.10); Red Cell Dist. Width 17.7 % (11.5-14.5); White Blood Cell Count 7.9 10^3/uL (4.8-10.8)
[2024-09-15 07:05] LABS: Blood Urea Nitrogen 35 mg/dl (9-20); Carbon Dioxide 29 mmol/L (22-30); Chloride 97 mmol/L (98-107); Estimated Creatinine Clearance 102 ml/min; Glucose 146 mg/dl (70-99); Potassium 3.7 mmol/L (3.5-5.1); Sodium 136 mmol/L (135-145); eGFR > 60.00
[2024-09-15 07:30] LABS: Glucose - Point of Care 175 mg/dl (70-99)
[2024-09-15] MEDS: DUONEB 3 ML INH ×4 (07:39→19:25)
[2024-09-15] MEDS: HIPREX 1 GRAM PO ×2 (08:06→22:03)
[2024-09-15] MEDS: MUCINEX 1200 MG PO (08:07)
[2024-09-15] MEDS: PROSCAR 5 MG PO (08:07)
[2024-09-15] MEDS: NEURONTIN 800 MG PO ×3 (08:07→22:05)
[2024-09-15] MEDS: XARELTO 20 MG PO (08:07)
[2024-09-15] MEDS: PAMELOR 50 MG PO (08:07)
[2024-09-15] MEDS: CYMBALTA DELAYED RELEASE 60 MG PO (08:07)
[2024-09-15] MEDS: THERAGRAN 1 TABLET PO (08:07)
[2024-09-15] MEDS: LEUCOVORIN 10 MG PO (08:08)
[2024-09-15] MEDS: TOPROL XL 50 MG PO ×2 (08:08→22:04)
[2024-09-15] MEDS: ZYLOPRIM 100 MG PO (08:08)
[2024-09-15] MEDS: VIBRAMYCIN 100 MG PO ×2 (08:08→22:04)
[2024-09-15] MEDS: PROTONIX 40 MG PO (08:08)
[2024-09-15] MEDS: VITAMIN C 500 MG PO (08:08)
[2024-09-15] MEDS: FLOMAX 0.4 MG PO (08:08)
[2024-09-15] MEDS: DELTASONE 5 MG PO (08:08)
[2024-09-15] MEDS: NOVOLOG FLEXPEN-MODERATE RESISTANCE 1 UNITS SC (08:09)
[2024-09-15] MEDS: LAC HYDRIN, AM LACTIN LOTION 1 APPLIC TOPICAL (08:09)
[2024-09-15] MEDS: NOVOLOG FLEXPEN 12 UNITS SC ×2 (08:10→17:31)
--- NOTE | 2024-09-15 12:19 | W.PN.HOSP.TC ---
Today's Communication/Plan
-
reintroduce lower dose Oxycodone for better pain control; monitor for sedation
continue Abx
Assessment / Plan
Assessment / Plan
Impression
Patient is a 78y M with PMH significant for COPD, ASCVD, HTN and DM-II who presents to ED from local [place] for evaluation of cough and hypoxemia.
Acute hypoxic respiratory failure likely multifactorial
Sepsis present on admission
Septic shock requiring vasopressor
Left lower lobe pneumonia
Aspiration risk due to fluctuating mental status
Abnormal urinalysis.
Clinical volume overload with concern for CHF
Hyponatremia
Other conditions:
Recent hospitalization to [facility] with bilateral lower extremity fractures
ASCVD.
Permanent atrial fibrillation baseline anticoagulation with Xarelto.
Benign hypertension
IDDM.
Asthma/COPD.
Obstructive sleep apnea on CPAP at night.
Rheumatoid arthritis.
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
Chronic back pain pain
Peripheral neuropathy
BPH.
History of UTI with Serratia.
Morbid obesity
Plan:
Acute hypoxic respiratory failure likely multifactorial and suspect in the settings of acute tracheobronchitis as well as possible volume overload and CHF.
Underlying COPD/obstructive sleep apnea/obesity hypoventilation disorder.
Reported hypoxia with pulse ox of 80% on room air.
In review of VBG (unable to draw ABG) as well as chronic compensated alkalosis suspect hypercarbic respiratory failure
Wean off oxygen as tolerates
Continue BiPAP at night
Avoid oversedation
Altered mental status secondary toxic metabolic encephalopathy due to infection as well as hypercarbia.
CT scan of the head.
Continue BiPAP.
Avoid oversedation. Decrease gabapentin to 800 mg 3 times daily.
Continue Ultram as needed. Hold oxycodone
Sepsis present on admission.
Fever, leukocytosis
Chest x-ray with increased vascularity, although with no focal infiltrates
Follow-up chest x-ray with apparent left lower lobe infiltrate
COVID/influenza negative.
Abnormal urinalysis. Urine culture indicative of contaminated
Prior history of Serratia UTI.
Blood cultures negative to date
CT scan of the abdomen pelvis with possible 4 mm calcification pancreatic head versus CBD stone. Normal LFTs. Check US of the abdomen.
Ultrasound of the abdomen with CBD at the normal size with no obstruction.
Empiric antibiotics ceftriaxone/doxycycline
Remains at the aspiration risk given fluctuating mental status. Speech and swallow following. Diet adjusted with aspiration precautions.
Concern for acute CHF upon admission
Clinically volume overloaded
Elevated pro CHF BNP
Echocardiogram 08/18: LVEF 60-65%. LVH. Diastolic function intermediate with A-fib. Moderately dilated left atrium.
Repeated echo without significant changes
Single dose of IV Lasix 20 mg provided on 09/11
Given marginal BP, hold Bumex, lisinopril, continue metoprolol with caution.
Wean off norepinephrine
Hyponatremia. Sodium 125
Clinically volume overloaded.
TSH within normal limits.
Improved
Permanent atrial fibrillation.
Noted elevated ventricular rates in the settings of hypoxia
Continue preadmission metoprolol
Continue anticoagulation with Xarelto.
ASCVD.
Essential hypertension
Continue metoprolol, lisinopril, statin
Update echocardiogram as above
IDDM.
Hemoglobin A1c 8.1.
Diet has been advanced
Lantus/NovoLog adjusting dose.
Basal bolus protocol.
Adjust regimen accordingly.
Rheumatoid arthritis.
Chronic immunosuppression with methotrexate and prednisone.
Hold methotrexate acutely while pending workup for sepsis.
BPH
- Stable. Continue tamsulosin.
- Bladder scan protocol.
Morbid Obesity due to excess calories
- Affects all aspects of care.
- Healthy diet.
- Current ability for activity / exercise is markedly limited given NWB status / LE injuries.
Bilateral LE Fractures
- Uncertain of exact fracture location (femoral condyle, patella, etc).
- Non-weight bearing on both LEs per NH record and confirmed with patient.
- Uses Fanny for transfers to chair / wheelchair / etc.
- PT / OT evaluations.
- Follow-up with Ortho as an outpatient as planned.
Obtain medical records from recent hospitalization.
Full code.
DVT prophylaxis Xarelto
Anticipated Discharge: > 48 hours
Subjective/Interval History
-
Date of Service: September 15, 2024
resting comfortably
Objective Data
-
Labs:
Laboratory Results
09/15/24
05:10
WBC 7.9
Hgb 10.6 L
Hct 32.0 L
Plt Count 165
Sodium 136
Potassium 3.7
Chloride 97 L
Carbon Dioxide 29
BUN 35 H
Creatinine 0.9
Glucose 146 H
Calcium 9.0
Vital Signs:
Vital Signs
Temp Pulse Resp BP Pulse Ox
98.8 F 90 16 140/87 93
09/15/24 11:10 09/15/24 11:18 09/15/24 11:18 09/15/24 11:10 09/15/24 11:18
I&O
09/14/24 09/15/24 09/16/24
06:59 06:59 06:59
Intake Total 1820.0 / 1820.0 780 / 780
Output Total 1400 / 1400 1475 / 1475
Balance 420.0 / 420.0 -695 / -695
Physical Exam
-
General: No Apparent Distress
HEENT: Normocephalic and Atraumatic
Respiratory: Negative Wheezes
Cardiac: Regular Rhythm and S1/S2
Genito-urinary: No Costovertebral Tender
Neuro: AO x 3
Psych: Calm
Data Reviewed
-
Total Time Spent with Patient (in minutes): 41
Labs: Labs Reviewed by me
[2024-09-15 12:21] LABS: Glucose - Point of Care 224 mg/dl (70-99)
[2024-09-15] MEDS: NOVOLOG FLEXPEN SC (14:24)
[2024-09-15] MEDS: NOVOLOG FLEXPEN-MODERATE RESISTANCE 3 UNITS SC ×2 (14:24→17:31)
[2024-09-15 16:56] LABS: Glucose - Point of Care 212 mg/dl (70-99)
[2024-09-15 21:26] LABS: Glucose - Point of Care 196 mg/dl (70-99)
[2024-09-15] MEDS: LANTUS 0.58 UNITS SC (22:04)
[2024-09-15] MEDS: MELATONIN 5 MG PO (22:05)
[2024-09-15] MEDS: LIPITOR 40 MG PO (22:05)
[2024-09-16] VITALS (7 sets, daily range): BP systolic 111–158; BP diastolic 61–91; PULSE 90; O2SAT 94; BMI 39.4
[2024-09-16] MEDS: ROCEPHIN 1000 MG IV (06:05)
[2024-09-16] MEDS: STERILE WATER FOR INJECTION 10 ML IV (06:05)
[2024-09-16 07:30] LABS: Glucose - Point of Care 188 mg/dl (70-99)
[2024-09-16 07:34] LABS: Hematocrit 34.3 % (39.0-52.0); Hemoglobin 11.3 g/dL (13.0-18.0); Mean Corp Hgb Conc. 32.9 g/dL (33.0-37.0); Mean Corpuscular Hgb 30.5 pg (27.0-31.0); Mean Corpuscular Volume 92.5 fL (80.0-94.0); Platelet Count 169 10^3/uL (130-400); Red Blood Cell Count 3.71 10^6/uL (4.70-6.10); Red Cell Dist. Width 17.4 % (11.5-14.5); White Blood Cell Count 7.1 10^3/uL (4.8-10.8)
[2024-09-16] MEDS: DUONEB 3 ML INH ×4 (07:35→19:13)
[2024-09-16 07:51] LABS: Blood Urea Nitrogen 26 mg/dl (9-20); Calcium 8.9 mg/dl (8.4-10.2); Carbon Dioxide 30 mmol/L (22-30); Chloride 100 mmol/L (98-107); Estimated Creatinine Clearance 102 ml/min; Glucose 174 mg/dl (70-99); Potassium 3.9 mmol/L (3.5-5.1); Sodium 137 mmol/L (135-145); eGFR > 60.00
[2024-09-16] MEDS: HIPREX 1 GRAM PO ×2 (09:16→20:06)
[2024-09-16] MEDS: PROSCAR 5 MG PO (09:16)
[2024-09-16] MEDS: PAMELOR 50 MG PO (09:16)
[2024-09-16] MEDS: VIBRAMYCIN 100 MG PO ×2 (09:16→20:06)
[2024-09-16] MEDS: XARELTO 20 MG PO (09:17)
[2024-09-16] MEDS: THERAGRAN 1 TABLET PO (09:17)
[2024-09-16] MEDS: NEURONTIN 800 MG PO (09:17)
[2024-09-16] MEDS: LEUCOVORIN 10 MG PO (09:17)
[2024-09-16] MEDS: CYMBALTA DELAYED RELEASE 60 MG PO (09:17)
[2024-09-16] MEDS: DELTASONE 5 MG PO (09:17)
[2024-09-16] MEDS: FLOMAX 0.4 MG PO (09:17)
[2024-09-16] MEDS: MUCINEX 1200 MG PO (09:17)
[2024-09-16] MEDS: PROTONIX 40 MG PO (09:17)
[2024-09-16] MEDS: VITAMIN C 500 MG PO (09:17)
[2024-09-16] MEDS: ZYLOPRIM 100 MG PO (09:17)
[2024-09-16] MEDS: NOVOLOG FLEXPEN 12 UNITS SC ×3 (09:18→18:17)
[2024-09-16] MEDS: TOPROL XL 50 MG PO ×2 (09:18→20:06)
[2024-09-16] MEDS: NOVOLOG FLEXPEN-MODERATE RESISTANCE 1 UNITS SC ×2 (09:18→14:53)
[2024-09-16] MEDS: LAC HYDRIN, AM LACTIN LOTION 1 APPLIC TOPICAL (09:19)
--- NOTE | 2024-09-16 10:47 | WOUNDNOTE ---
L 2ND TOE
--- NOTE | 2024-09-16 10:51 | WOUNDNOTE ---
WO RN note: Patient admitted with tracheobronchitis, sepsis. Patient admitted from [facility].
See H&P for complete history.
PMH: RA, HTN, DM, obesity, a fib, femur fractures, fall last July (NWB x 4-6 weeks, conservative treatment), chronic back pain, neuropathy, sleep apnea (CPAP), BPH, gout, obesity, nephrolithiasis, back surgery, knee replacements, cardiac stent,
R hip replacement.
Wound Location and type/assessment: Patient has coccyx linear dermal opening suspect r/t moisture. R sacral/buttocks with area of fragile discolored skin suspect will open as a stage 2 pressure injury r/t friction. Bilateral hankins slow to madai red
skin r/t knee immobilizer bilateral. Patient admitted with R lateral ankle and L dorsal 2nd toe healing small dermal abrasion.
Appetite: fair-good.
Pressure redistribution devices in place: Centrella Max Wide air bed. Air chair cushion. Foam turning wedge. Patient turns with assistance.
Plan: Patient incontinent of mucous drainage, connie care given by MORGAN Smith. Silicone border foam applied to sacral/buttocks. Silicone border foam dressings applied to bilateral hankins red areas under Tubigrip/knee immobilizers. Protective foam
dressing applied to heels. Heels off bed with pillows. Patient turned to R semi side lying position with help from PT Patricia. t/c SPD and ordered bariatric air chair cushion.
Will confirm orders with Dr. Pantoja and discussed with MORGAN Smith.
Care plan to be updated and will follow as needed.
Note to case management of equipment requested for discharge: Bariatric air mattress at SNF if not already in place.
Patient to follow up with orthopedic surgeon.
[2024-09-16 12:00] LABS: Glucose - Point of Care 197 mg/dl (70-99)
--- NOTE | 2024-09-16 13:48 | PTOTSP ---
Speech Therapy
Oral/pharyngeal swallow deemed within functional limits without gross signs of aspiration, though risk elevated given current respiratory status and history of COPD.
Swallows appeared prompt, well-coordinated. No coughing or changes in vocal/respiratory quality. N change in baseline expiratory congestion. Solids with effective breakdown despite edentulous status. No complaint or symptoms to suggest pharyngeal
stasis or esophageal discomfort.
Recommend
1. Advance to baseline diet of regular solids and thin liquids.
2. Meds as tolerated
3. Aspiration precautions given current pulmonary status including history of COPD
4. ST will follow to ensure diet tolerance.
--- NOTE | 2024-09-16 15:28 | W.PN.HOSP.TC ---
Today's Communication/Plan
-
Continue antibiotics, plan is to transition to oral on 09/17 to complete 7-day course of treatment.
Reintroduce lisinopril and monitor for recurrent hypotension.
Hold Bumex
Speech eval appreciated and diet has been advanced to solid with thin liquids
Assessment / Plan
Assessment / Plan
Impression
Patient is a 78y M with PMH significant for COPD, ASCVD, HTN and DM-II who presents to ED from local [place] for evaluation of cough and hypoxemia.
Acute hypoxic respiratory failure likely multifactorial
Sepsis present on admission
Septic shock requiring vasopressor
Left lower lobe pneumonia
Aspiration risk due to fluctuating mental status
Abnormal urinalysis.
Clinical volume overload with concern for CHF
Hyponatremia
Other conditions:
Recent hospitalization to [facility] with bilateral lower extremity fractures
ASCVD.
Permanent atrial fibrillation baseline anticoagulation with Xarelto.
Benign hypertension
IDDM.
Asthma/COPD.
Obstructive sleep apnea on CPAP at night.
Rheumatoid arthritis.
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
Chronic back pain pain
Peripheral neuropathy
BPH.
History of UTI with Serratia.
Morbid obesity
Plan:
Acute hypoxic respiratory failure likely multifactorial and suspect in the settings of acute tracheobronchitis as well as possible volume overload and CHF.
Underlying COPD/obstructive sleep apnea/obesity hypoventilation disorder.
Reported hypoxia with pulse ox of 80% on room air.
In review of VBG (unable to draw ABG) as well as chronic compensated alkalosis suspect hypercarbic respiratory failure
Wean off oxygen as tolerates
Continue BiPAP at night
Avoid oversedation
Altered mental status secondary toxic metabolic encephalopathy due to infection as well as hypercarbia.
CT scan of the head.
Continue BiPAP.
Avoid oversedation. Decrease gabapentin to 800 mg 3 times daily.
On Ultram and oxycodone for pain. Continue with caution.
Sepsis present on admission.
Fever, leukocytosis
Chest x-ray with increased vascularity, although with no focal infiltrates
Follow-up chest x-ray with apparent left lower lobe infiltrate
COVID/influenza negative.
Abnormal urinalysis. Urine culture indicative of contaminated
Prior history of Serratia UTI.
Blood cultures negative to date
CT scan of the abdomen pelvis with possible 4 mm calcification pancreatic head versus CBD stone. Normal LFTs. Check US of the abdomen.
Ultrasound of the abdomen with CBD at the normal size with no obstruction.
Empiric antibiotics ceftriaxone/doxycycline
Remains at the aspiration risk given fluctuating mental status. Speech and swallow following. Diet adjusted with aspiration precautions.
Concern for acute CHF upon admission
Clinically volume overloaded
Elevated pro CHF BNP
Echocardiogram 08/18: LVEF 60-65%. LVH. Diastolic function intermediate with A-fib. Moderately dilated left atrium.
Repeated echo without significant changes
Single dose of IV Lasix 20 mg provided on 09/11
Hypotension improved. Continue metoprolol, and introduce lisinopril. Hold Bumex for another 24 hours
Has been off pressor
Hyponatremia. Sodium 125
Clinically volume overloaded.
TSH within normal limits.
Improved
Permanent atrial fibrillation.
Noted elevated ventricular rates in the settings of hypoxia
Continue preadmission metoprolol
Continue anticoagulation with Xarelto.
ASCVD.
Essential hypertension
Continue metoprolol, lisinopril, statin
Update echocardiogram as above
IDDM.
Hemoglobin A1c 8.1.
Diet has been advanced
Lantus/NovoLog adjusting dose.
Basal bolus protocol.
Adjust regimen accordingly.
Rheumatoid arthritis.
Chronic immunosuppression with methotrexate and prednisone.
Hold methotrexate acutely while pending workup for sepsis.
BPH
- Stable. Continue tamsulosin.
- Bladder scan protocol.
Morbid Obesity due to excess calories
- Affects all aspects of care.
- Healthy diet.
- Current ability for activity / exercise is markedly limited given NWB status / LE injuries.
Bilateral LE Fractures
- Uncertain of exact fracture location (femoral condyle, patella, etc).
- Non-weight bearing on both LEs per NH record and confirmed with patient.
- Uses Fanny for transfers to chair / wheelchair / etc.
- PT / OT evaluations.
- Follow-up with Ortho as an outpatient as planned.
Obtain medical records from recent hospitalization.
Full code.
DVT prophylaxis Xarelto
Anticipated Discharge: 24 - 48 hours
Subjective/Interval History
-
Date of Service: September 16, 2024
Objective Data
-
Labs:
Laboratory Results
09/16/24
06:52
WBC 7.1
Hgb 11.3 L
Hct 34.3 L
Plt Count 169
Sodium 137
Potassium 3.9
Chloride 100
Carbon Dioxide 30
BUN 26 H
Creatinine 0.9
Glucose 174 H
Calcium 8.9
Vital Signs:
Vital Signs
Temp Pulse Resp BP Pulse Ox
97.9 F 86 16 123/71 93
09/16/24 15:00 09/16/24 15:00 09/16/24 15:00 09/16/24 15:00 09/16/24 15:00
I&O
09/15/24 09/16/24 09/17/24
06:59 06:59 06:59
Intake Total 780 / 780 480 / 480
Output Total 1475 / 1475 1225 / 1225
Balance -695 / -695 -745 / -745
Physical Exam
-
General: No Apparent Distress
HEENT: Normocephalic and Atraumatic
Respiratory: Negative Wheezes
Cardiac: Regular Rhythm and S1/S2
Genito-urinary: No Costovertebral Tender
Neuro: AO x 3
Psych: Calm
--- NOTE | 2024-09-16 16:18 | CM ---
Patient seen at bedside.
Spoke with daughter Tiny.
Patient/daughter agreeable to return to [facility]
Report # [phone]
Fax #: [phone]
transportation forms on chart
[2024-09-16 16:33] LABS: Glucose - Point of Care 242 mg/dl (70-99)
[2024-09-16] MEDS: NEURONTIN 900 MG PO ×2 (16:58→21:58)
[2024-09-16] MEDS: NOVOLOG FLEXPEN-MODERATE RESISTANCE 3 UNITS SC (18:17)
[2024-09-16 21:44] LABS: Glucose - Point of Care 186 mg/dl (70-99)
[2024-09-16] MEDS: MELATONIN 5 MG PO (21:58)
[2024-09-16] MEDS: LANTUS 0.58 UNITS SC (21:58)
[2024-09-16] MEDS: LIPITOR 40 MG PO (21:59)
[2024-09-17] MEDS: ROXICODONE 2.5 MG PO ×2 (00:11→06:43)
[2024-09-17 03:36] VITALS: BP 109/68
[2024-09-17 06:00] VITALS: BMI 38.8
[2024-09-17] MEDS: STERILE WATER FOR INJECTION 10 ML IV (06:24)
[2024-09-17] MEDS: ROCEPHIN 1000 MG IV (06:24)
[2024-09-17 07:23] LABS: Hematocrit 33.2 % (39.0-52.0); Hemoglobin 10.7 g/dL (13.0-18.0); Mean Corp Hgb Conc. 32.2 g/dL (33.0-37.0); Mean Corpuscular Hgb 30.7 pg (27.0-31.0); Mean Corpuscular Volume 95.4 fL (80.0-94.0); Mean Platelet Volume 11.3 fL (7.4-10.4); Platelet Count 209 10^3/uL (130-400); Red Blood Cell Count 3.48 10^6/uL (4.70-6.10); Red Cell Dist. Width 17.7 % (11.5-14.5); White Blood Cell Count 8.5 10^3/uL (4.8-10.8)
[2024-09-17 07:25] LABS: Blood Urea Nitrogen 26 mg/dl (9-20); Calcium 8.9 mg/dl (8.4-10.2); Carbon Dioxide 30 mmol/L (22-30); Chloride 99 mmol/L (98-107); Estimated Creatinine Clearance 101 ml/min; Glucose 114 mg/dl (70-99); Potassium 3.9 mmol/L (3.5-5.1); Sodium 138 mmol/L (135-145); eGFR > 60.00
[2024-09-17 07:39] VITALS: BP 102/65
[2024-09-17] MEDS: DUONEB 3 ML INH ×2 (07:45→11:17)
[2024-09-17 07:47] LABS: Glucose - Point of Care 143 mg/dl (70-99)
[2024-09-17] MEDS: NOVOLOG FLEXPEN-MODERATE RESISTANCE SC ×2 (07:57→12:53)
[2024-09-17] MEDS: PAMELOR 50 MG PO (08:23)
[2024-09-17] MEDS: TOPROL XL 50 MG PO (08:23)
[2024-09-17] MEDS: NEURONTIN 900 MG PO (08:23)
[2024-09-17] MEDS: HIPREX 1 GRAM PO (08:23)
[2024-09-17] MEDS: CYMBALTA DELAYED RELEASE 60 MG PO (08:23)
[2024-09-17] MEDS: MUCINEX 1200 MG PO (08:24)
[2024-09-17] MEDS: ZESTRIL 20 MG PO (08:24)
[2024-09-17] MEDS: VITAMIN C 500 MG PO (08:24)
[2024-09-17] MEDS: LEUCOVORIN 10 MG PO (08:24)
[2024-09-17] MEDS: XARELTO 20 MG PO (08:24)
[2024-09-17] MEDS: THERAGRAN 1 TABLET PO (08:24)
[2024-09-17] MEDS: PROSCAR 5 MG PO (08:24)
[2024-09-17] MEDS: ZYLOPRIM 100 MG PO (08:24)
[2024-09-17] MEDS: FLOMAX 0.4 MG PO (08:24)
[2024-09-17] MEDS: PROTONIX 40 MG PO (08:24)
[2024-09-17] MEDS: DELTASONE 5 MG PO (08:24)
[2024-09-17] MEDS: VIBRAMYCIN 100 MG PO (08:24)
[2024-09-17] MEDS: LAC HYDRIN, AM LACTIN LOTION 1 APPLIC TOPICAL (08:26)
[2024-09-17] MEDS: DRISDOL (VITAMIN D2) 50000 UNITS PO (08:26)
--- NOTE | 2024-09-17 08:40 | CM ---
Addendum entered by Yelitza Whaley 09/17/24 11:48:
1430 transport - Viviana & stan updated
Original Note:
tt from Hospitalist
Patient to be discharged to [facility]
Notified daughter Tiny - IMM explained.
Notified [facility] liaison at [facility]
PLAN: [facility]
Report # [phone]
Fax #: [phone]
transportation forms on chart
[2024-09-17] MEDS: NOVOLOG FLEXPEN 12 UNITS SC (09:55)
--- NOTE | 2024-09-17 10:54 | W.DS.TRANS ---
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
-
Discharge Instructions:
Discharge Diagnosis/Procedures Impression
Patient is a 78y M with PMH significant for COPD
, ASCVD, HTN and DM-II who presents to ED
from local [place] for evaluation of cough and
hypoxemia.
Acute hypoxic respiratory failure likely
multifactorial
Sepsis present on admission
Septic shock requiring vasopressor
Left lower lobe pneumonia
Aspiration risk due to fluctuating mental status
Abnormal urinalysis.
Clinical volume overload with concern for CHF
Hyponatremia
Other conditions:
Recent hospitalization to [facility]
with bilateral lower extremity fractures
ASCVD.
Permanent atrial fibrillation baseline
anticoagulation with Xarelto.
Benign hypertension
IDDM.
Asthma/COPD.
Obstructive sleep apnea on CPAP at night.
Rheumatoid arthritis.
Chronic immunosuppression due to prednisone/
methotrexate
Chronic back pain pain
Peripheral neuropathy
BPH.
History of UTI with Serratia.
Morbid obesity
Diet Diabetic, Carb Controlled
Instructions:
Stand-Alone Forms:
Changes to Home Medications: Yes
Discharge Medications:
DC Medications w/original date entered in [facility]
prednisone 5 mg tablet 5 mg PO DAILY Anti-Inflammatory 12/23/14
tamsulosin 0.4 mg capsule 0.4 mg PO DAILY Urinary Issue 12/23/14
allopurinol 100 mg tablet 100 mg PO DAILY Gout 07/01/19
atorvastatin 40 mg tablet (Lipitor) 40 mg PO HS High Cholesterol 07/01/19
finasteride 5 mg tablet 5 mg PO DAILY Urinary Issue 07/22/19
omega-3 acid ethyl esters 1 gram capsule (Lovaza) 1 gm PO TID Supplement 07/22/19
insulin glargine 100 unit/mL subcutaneous solution (Lantus U-100 Insulin) 54 unit SQ HS Diabetes 12/03/20
leucovorin calcium 10 mg tablet 10 mg PO DAILY rheumatoid arthritis 04/17/23
bumetanide 1 mg tablet 1 mg PO DAILY Fluid Retention/Swelling 06/05/24
duloxetine 60 mg capsule,delayed release 60 mg PO DAILY Mental Health/Anxiety 06/05/24
fluticasone 250 mcg-salmeterol 50 mcg/dose blistr powdr for inhalation (Advair Diskus) 1 inh inhalation R DAILY Lung/Breathing Issues 06/05/24
methenamine hippurate 1 gram tablet 1 g PO BID prophylaxis 06/05/24
nortriptyline 50 mg capsule 50 mg PO DAILY Neurological Condition 06/05/24
metoprolol succinate 50 mg tablet,extended release 24 hr 50 mg PO BID #60 tabs 06/11/24
acetaminophen 325 mg tablet 650 mg PO Q6HPRN PRN mild pain/temp>100 09/10/24
ammonium lactate 12 % lotion 1 applic topical DAILY Skin Issues 09/10/24
ascorbic acid (vitamin C) 500 mg tablet (Vitamin C) 500 mg PO DAILY Supplement 09/10/24
bisacodyl 10 mg rectal suppository 10 mg DE DAILYPRN PRN constipation, mom ineffective 09/10/24
ergocalciferol (vitamin D2) 1,250 mcg (50,000 unit) capsule 1,250 mcg PO TUFR Supplement 09/10/24
fluticasone propionate 50 mcg/actuation nasal spray,suspension 2 spray intranasal BID Allergies 09/10/24
guaifenesin 400 mg tablet 1,200 mg PO BID Congestion 09/10/24
ipratropium 0.5 mg-albuterol 3 mg (2.5 mg base)/3 mL nebulization soln 3 ml inhalation R QID Lung/Breathing Issues 09/10/24
magnesium hydroxide 400 mg/5 mL oral suspension (Milk of Magnesia) 30 ml PO [id number] PRN no bm x3 days 09/10/24
methotrexate sodium 25 mg/mL injection solution 25 mg SC SA RA 09/10/24
omeprazole 20 mg capsule,delayed release 20 mg PO DAILY Gastrointestinal Issue 09/10/24
rivaroxaban 20 mg tablet (Xarelto) 20 mg PO DAILY Blood Clot Prevention/Tx 09/10/24
therapeutic multivitamin 1 tab PO DAILY Supplement 09/10/24
tirzepatide 2.5 mg/0.5 mL subcutaneous pen injector 2.5 mg SC WE Diabetes 09/10/24
Lactobac/Bifidobac [Visbiome] 2 cap PO DAILY #30 ea 09/17/24
gabapentin 800 mg tablet (Neurontin) 900 mg (1.125 x 800 mg) PO TID Neurological Condition #0 tabs 09/17/24
insulin lispro 100 unit/mL subcutaneous pen (Humalog KwikPen (U-100) Insulin) 10 unit (0.1 mL) SC MEALS Diabetes #0 mL 09/17/24
lisinopril 20 mg tablet 10 mg (1/2 x 20 mg) PO DAILY Blood Pressure #0 tabs 09/17/24
oxycodone 5 mg tablet 5 mg PO Q4HPRN PRN moderate pain #14 tabs 09/17/24
Home Medication Changes
Insulin adjusted to hyperglycemia.
Lisinopril reduced
Neurontin reduced
Ultrum discontinued while patient is on Oxycodone
Pending Results: No
[2024-09-17] MEDS: VISBIOME 2 CAP PO (10:58)
--- NOTE | 2024-09-17 11:02 | PN.CDI ---
CDI
- -
CDI:
Physician Documentation Request
Admit Date: 09/11/24 01:42
Dear Doctor Scarlett,
Please review the following and provide your response in the progress notes.
Clinical Indicators:
Pt admitted with Sepsis 2/2 Tracheobronchitis/LLL PNA/ Acute Hypoxic respiratory Failure
Documented per [facility] note 09/16, ' Patient has coccyx linear dermal opening suspect r/t moisture. R sacral/buttocks with area of fragile discolored skin suspect will open as a stage 2 pressure injury r/t friction.... Silicone border foam applied to
sacral/buttocks. ...'
Physician documentation of the type and location of wounds is required for compliant documentation. Based on the above clinical findings and your assessment, please provide the following in your progress note:
1. Location of the ulcer/wound, including laterality.
2. Type (etiology) of ulcer/wound:
- Pressure (decubitus) ulcer
- Non-pressure ulcer
- Other ( please specify)
Use of terms such as suspected, likely, concern for, or probable (associated with a specific diagnosis that is being evaluated, monitored, or treated as if it exists) are acceptable and can be coded in the inpatient setting, when documented at the
time of discharge.
Thank you,
Cherelle Deras RN
CDI Specialist
[place]
Please use your independent medical judgment in providing your response.
*Source: National Pressure Ulcer Advisory Panel (NPUAP)
[2024-09-17 11:59] VITALS: BP 131/83
[2024-09-17] MEDS: NOVOLOG FLEXPEN SC (12:35)
[2024-09-17 12:38] LABS: Glucose - Point of Care 147 mg/dl (70-99)
[2024-09-17 13:39] LABS: Glucose - Point of Care 154 mg/dl (70-99)
[2024-09-17 14:10] VITALS: BP 134/88
--- NOTE | 2024-09-17 14:46 | PTCARENOTE ---
Patient discharged to [facility], transported by [facility]. This RN called report to facility, removed patient's IV and tele pack, vitals taken by tech stable. Patient belongings gathered in room, B/L leg braces on patient. Patient in tshirt and gown
for transport.
== END 2024-09-17 15:00 | DRG 871 ==
LOC: 2 NORTH 01:42
PROVIDERS: Internal Medicine; Nurse Practitioner Family; Physician Assistant; ADMITTING PHYSICIAN Hospitalist; ATTENDING PHYSICIAN Internal Medicine; EMERGENCY PHYSICIAN Student in an Organized Health Care Education/Training Program; FAMILY PHYSICIAN Student in an Organized Health Care Education/Training Program
PROC: 5A09357 Assistance with Respiratory Ventilation, Less than 24 Consecutive Hours, Continuous Positive Airway Pressure (ICD-10-PCS; 2024-09-11)
DX: A41.9 Sepsis, unspecified organism (principal); G92.8 Other toxic encephalopathy; J96.01 Acute respiratory failure with hypoxia; J18.9 Pneumonia, unspecified organism; R65.21 Severe sepsis with septic shock; I50.31 Acute diastolic (congestive) heart failure; J44.0 Chronic obstructive pulmonary disease with (acute) lower respiratory infection; N17.9 Acute kidney failure, unspecified; I48.21 Permanent atrial fibrillation; D84.821 Immunodeficiency due to drugs; E87.1 Hypo-osmolality and hyponatremia; I48.92 Unspecified atrial flutter; I11.0 Hypertensive heart disease with heart failure; I25.10 Atherosclerotic heart disease of native coronary artery without angina pectoris; E11.40 Type 2 diabetes mellitus with diabetic neuropathy, unspecified; Z79.4 Long term (current) use of insulin; G47.33 Obstructive sleep apnea (adult) (pediatric); M06.9 Rheumatoid arthritis, unspecified; L89.152 Pressure ulcer of sacral region, stage 2; M48.00 Spinal stenosis, site unspecified; Z79.891 Long term (current) use of opiate analgesic; N40.0 Benign prostatic hyperplasia without lower urinary tract symptoms; Z87.440 Personal history of urinary (tract) infections; E66.01 Morbid (severe) obesity due to excess calories; Z68.38 Body mass index [BMI] 38.0-38.9, adult; Z11.52 Encounter for screening for COVID-19; E86.1 Hypovolemia; Z79.01 Long term (current) use of anticoagulants; M10.9 Gout, unspecified; Z88.1 Allergy status to other antibiotic agents; Z88.0 Allergy status to penicillin; Z88.2 Allergy status to sulfonamides; M84.40XD Pathological fracture, unspecified site, subsequent encounter for fracture with routine healing; E78.00 Pure hypercholesterolemia, unspecified; I45.10 Unspecified right bundle-branch block; I70.0 Atherosclerosis of aorta; K21.9 Gastro-esophageal reflux disease without esophagitis; R13.10 Dysphagia, unspecified; Z95.5 Presence of coronary angioplasty implant and graft; Z96.641 Presence of right artificial hip joint; Z96.659 Presence of unspecified artificial knee joint; Z99.81 Dependence on supplemental oxygen
CPT/HCPCS: 70450; 71045; 74176; 76700; 80048; 80053; 81003; 81015; 82248; 82805; 82962; 83036; 83605; 83735; 83880; 83935; 84443; 85025; 85027; 87040; 87070; 87086; 87147; 87324; 87449; 87502; 87798; 87811; 92526; 92610; 93005; 93306; 93970; 94640; 94660; 94667; 96374; 97110; 97163; 97167; 97530; 99285; Q9957

== ENCOUNTER 2024-10-31 03:38 | Inpatient (IN) | payer MEDICARE, OTHER, SELFPAY ==
[2024-10-30 23:09] VITALS: BP 124/109
[2024-10-30 23:15] VITALS: BP 123/110
[2024-10-30 23:17] VITALS: BP 123/110
[2024-10-30 23:20] VITALS: BP 90/67; PULSE 100; PULSE 2
--- NOTE | 2024-10-30 23:30 | ED.GENMED ---
Addendum entered and electronically signed by Rodolfo Metz DO 10/31/24 01:38:
Update blood pressure low receiving 2 L of IV fluids wide open antibiotics have been ordered, pressors have been ordered culture have been ordered
Allergies noted tolerated ceftriaxone previously
Original Note:
History of Present Illness
General
Chief Complaint: Breathing Problem
Source: patient, records and ambulance crew
Exam Limitations: clinical condition and altered mental status
Time Seen by Provider: 10/30/24 23:29
Nursing documentation reviewed up to this point in time: agreed with
History of Present Illness
History of Present Illness:
78-year-old male from [facility] found slumped over in a chair apparently with low pulse ox, unclear along has been that way, my evaluation is on noninvasive ventilation minimally responsive placed on BiPAP here improved a bit, prior records
reviewed he is on Xarelto, Bumex because diabetes apparently had a leg fracture recently
Past History
Past History
ED Past Medical History: Arrthythmia, CAD, HTN, Hypercholesterolemia, NIDDM and Other
ED Past Surgical History: Orthopedic and Other
Social History
Tobacco: Other
Alcohol: Other
Drug: Other
Personal:
Living: with family
Employment: Not employed
Review of Systems
Review of Systems
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
All Other Systems: Not applicable
Phy Exam
Physical Exam
Physical Exam:
Physical Exam
General: Obtunded elderly male minimally responsive
Neck: No tongue
Heart: Regular
Lungs: Shallow respirations diminished breath sound
Abdomen: Obese
Neuro: Responds to painful stimuli deep stimulation moves all extremity
Skin: no rash
Psychiatric: Unable to assess
Extremities: Edema is present
Scores
Heart Failure Risk
Heart Failure Risk Score: Not Applicable
Course
Orders/Labs/Results
Orders:
Orders
10/30/24 23:14
Electrocardiogram (*1) Urgent
Reason for Study: Shortness of Breath
EKG- Treatment ONCE
10/30/24 23:15
Portable Chest Xray [CR Chest Portable - 1 View] Stat
Comment:
Reason For Exam: sob
Reason Study Needs to be Portable: Patient Unstable
10/30/24 23:23
ABG [Arterial Blood Gas] Urgent
%Oxygen/Room Air: 100
COVID-19 Antigen Urgent
Source: Nasal Swab
CPK [Creatine Phosphokinase] Urgent
Complete Blood Count/With Diff Urgent
Comprehensive Metabolic Panel Urgent
Lactate Level [Lactic Acid] Urgent
Troponin I Urgent
Influenza A+B Rapid Molecular Urgent
VISHAL Source: Nasal Swab
Specimen Description:
10/30/24 23:27
PTT Urgent
10/30/24 23:46
Propofol 1,000,000 Mcg/100 ml [Diprivan] 1,000,000 mcg in 100 ml .ROUTE .STK-MED
10/30/24 23:52
Portable Chest Xray [CR Chest Portable - 1 View] Stat
Comment:
Reason For Exam: Intubation
Reason Study Needs to be Portable: Patient Unstable
10/30/24 23:58
Diphenhydramine [Benadryl] 50 mg IV NOW STA
Hydrocortisone Sod Succinate [Solu-Cortef] 100 mg IV NOW STA
10/31/24
CT Head W/o Iv Contrast Stat
Reason For Exam: SOB
CT Pe/abd/pel W Stat
Reason For Exam: SOB
10/31/24 00:01
0.9% Sodium Chloride 1000 ml [Nss] 1,000 ml IV BOLUS
10/31/24 00:15
Propofol 1,000,000 Mcg/100 ml [Diprivan] 1,000,000 mcg in 100 ml IV PER PROTOCOL
Indication:: Deep Sedation
Begin Infusion:: Now
Goal:: RASS -3 to -5 or BIS < 60 or ventilator synchrony
Maximum dose in mcg/kg/min:: 50
Continue currently infusion dose and titrate:: Yes
Titration Instructions:: Titrate by 5-10 mcg/kg/min every 5 minutes until RASS -3 to -5 or
Titration Instructions:: BIS < 60 or ventilator synchrony is met.
Titration Instructions:: Administer analgesia bolus dose(s) & titrate analgesia prior to
Titration Instructions:: adjusting sedation.
Taper Instructions:: If RASS is at or below goal for 4 consecutive hours decrease infusion by
Taper Instructions:: 5-10 mcg/kg/min every 2 hours. Do not wean infusion to off if patient is
Taper Instructions:: receiving a continuous NMBA or has received bolus NMBA with the past 3 hrs
Over-sedation Instructions:: If BIS < 40 and synchronous with ventilator decrease infusion by
Over-sedation Instructions:: 5-10 mcg/kg/min every 2 hour until BIS = 40-60.
Notify provider:: immediately if patient exhibits signs/symptoms of propofol-related
Notify provider:: infusion syndrome.
Additional Instructions:: Patient MUST be mechanically ventilated and MUST receive analgesia.
10/31/24 00:19
ABG [Arterial Blood Gas] Urgent
%Oxygen/Room Air: 100
10/31/24 00:20
Add On- LAB Urgent
Tests Added?: pBNP
10/31/24 00:36
Calcium Gluconate 1,000 mg IV NOW STA
Dextrose 50%-Water [Dextrose 50% Syringe] 12.5 grams IV [id number] PRN
Dextrose 50%-Water [Dextrose 50% Syringe] 25 grams IV NOW STA
Insulin Human Regular [Novolin R] 5 units IV NOW STA
10/31/24 00:37
Bedside Glucose PRE IV Insulin- HyperK+ NOW
10/31/24 00:38
Wallace [Wallace Placement- Treatment] ONCE
Reason for insertion: Acute Kidney Injury
0.9% Sodium Chloride 1000 ml [Nss] 1,000 ml IV BOLUS
10/31/24 01:15
Add On- LAB Urgent
Tests Added?: lipase
10/31/24 02:07
Bedside Glucose POST IV Insulin- HyperK+ Q1HX2,Q2HX2
10/31/24 03:07
Potassium Urgent
Comment: draw 2 hours after regular insulin IV administration
10/31/24 06:00
Triglycerides Routine
Comment: baseline levels with propofol infusion
11/03/24 06:00
Triglycerides Q3D
Comment: every 72 hours while patient is on propofol
11/06/24 06:00
Triglycerides Q3D
Comment: every 72 hours while patient is on propofol
11/09/24 06:00
Triglycerides Q3D
Comment: every 72 hours while patient is on propofol
Abnormal Lab Results
10/30/24 10/30/24
23:23 23:27
WBC 12.1 H 10^3/uL
(4.8-10.8)
RBC 3.67 L 10^6/uL
(4.70-6.10)
Hgb 11.5 L g/dL
(13.0-18.0)
Hct 35.4 L %
(39.0-52.0)
MCV 96.5 H fL
(80.0-94.0)
MCH 31.3 H pg
(27.0-31.0)
MCHC 32.5 L g/dL
(33.0-37.0)
RDW 18.6 H %
(11.5-14.5)
MPV 10.9 H fL
(7.4-10.4)
Abs Immat Gran (auto) 0.2 H 10^3/uL
(0-0.05)
Absolute Neuts (auto) 8.9 H 10^3/uL
(1.4-6.5)
Absolute Monos (auto) 1.0 H 10^3/uL
(0.1-0.6)
Immature Gran % 1.3 H %
(0-0.5)
Lymphocytes % 16.0 L %
(20.5-51.1)
APTT 49.4 H Sec
(23.4-35.0)
pH 7.51 H
(7.35-7.45)
HCO3 29.5 H mmol/L
(21-28)
ABG O2 Sat (Measured) 98.8 H %
(94-98)
Sodium 132 L mmol/L
(135-145)
Potassium 6.0 H mmol/L
(3.5-5.1)
Chloride 96 L mmol/L
(98-107)
BUN 26 H mg/dl
(9-20)
Creatinine 1.5 H mg/dL
(0.7-1.3)
Glucose 157 H mg/dl
(70-99)
Lactic Acid 2.1 H mmol/L
(0.7-2.0)
AST 153 H U/L
(17-59)
ALT 99 H U/L
(0-50)
Alkaline Phosphatase 229 H U/L
(38-126)
Troponin I 0.035 H* ng/ml
10/30/24 23:23
Vital Signs
Initial and Last Documented VS:
Initial Vital Signs
BP
124/109
10/30/24 23:09
Last Documented Vital Signs
Pulse Resp BP Pulse Ox
107 20 90/61 98
10/31/24 00:45 10/31/24 00:45 10/31/24 00:40 10/31/24 00:05
Procedures
Intubations
Procedure completed by: artie
Method of Intubation: glidescope
Tube size (cm): 7.5
Placement confirmed by: auscutation
Breath sounds after intubation: equal
Intubation complications: no complications
Additional information:
RSI, initial direct laryngoscopy tube placed in esophagus recognized immediately, intubated without difficulty subsequently with glide scope
MDM/Problems Addressed
Differential Diagnosis Includes:
Hypercarbic respiratory failure, sepsis electrolyte abnormality heart failure pneumonia aspiration PE although he is anticoagulated
MDM/Problems Addressed:
Shortness of breath
Chronic conditions affecting care: DM, HTN, Cardiomyopathy, Arrhythmia, COPD, Neurological disorder, Psychiatric illness and Kidney disease
Acute Exacerbation and/or Progression of Chronic Illness: DM, HTN, Arrhythmia, COPD, Neurological disorder, Psychiatric illness and Kidney disease
*Radiology
Radiology exam reviewed: radiology read reviewed
*Pulse Oximetry
Patient hypoxic: yes
*EKG
Interpreted by ED Provider?: Yes
Interpretation: abnormal
Comparison EKG: no comparison EKG present
Heart Rate: 78
Rate: normal
Rhythm: a-fib
Ischemia: non-specific ST changes
*[employer] [place] Interpretation
Rate: normal
Interpretation: abnormal
Heart Rate: 78
Rhythm: a-fib
*Critical Care Note
Total Time (30-74mins, 75-104mins- exclusive of procedures): 40
Data Reviewed
Review of Other/Old Records Reveals: Labs and Discharge Summary
Source: patient and records
Update Note
Update Note:
Update patient slightly improved on 14/04 BiPAP, will check ABG follow closely chest x-ray noted
1145 ABG noted, patient still with labored respirations decreased mental status, decision to intubate with plan towards controlling his airway, checking CT of the head CT of the chest
Patient does have hives after I did a contrast, his airway secured he will be premedicated with Benadryl and steroids, I believe the risk and benefit of pursuing CT of the chest supports obtaining an urgent CT of the chest PE may be his diagnosis
1:[address] reports noted no PE no bowel obstruction
CRITICAL CARE STATEMENT: A total of 45 minutes of critical care time was provided for this patient. This includes management of unstable vital signs, evaluation of the patient at bedside, reviewing the patient's pertinent medical records discussion
with EMS providers and patient's family in addition to discussion with consultants, review of old EKGs and review of pertinent medical records. This time with separate from time utilized to perform the aforementioned documented procedures
ED Attending Note
-
Portions of this chart may have been created with voice recognition software.� Occasional wrong word or��sound alike� substitutions may have occurred due to the inherent limitations of voice recognition software.
Discharge Plan
Departure
Patient Disposition: Admit
Date of Disposition: 10/31/24
Time of Disposition: 01:18
Admit to: ICU
Presentation/result/management discussed w/ accepting MD/DO: Hospitalist
Patient with high blood pressure during this ER visit?: No
Condition: Serious
Covid-19: Not Applicable
Discharge Problem:
Atrial flutter, Morbid obesity with BMI of 45.0-49.9, adult, Permanent atrial fibrillation, Acute hypoxic respiratory failure, Atrial fibrillation with RVR, Other toxic encephalopathy, DEONDRE (acute kidney injury), COPD (chronic obstructive pulmonary
disease), Rheumatoid arthritis, Diabetes mellitus
Prescriptions:
No Action
prednisone 5 MG tablet
5 mg PO DAILY
tamsulosin 0.4 MG capsule
0.4 mg PO DAILY
atorvastatin [Lipitor] 40 MG tablet
40 mg PO HS
allopurinol 100 MG tablet
100 mg PO DAILY
finasteride 5 MG tablet
5 mg PO DAILY
omega-3 acid ethyl esters [Lovaza] 1 GM capsule
1 gm PO TID
insulin glargine [Lantus U-100 Insulin] 100 UNIT/ML solution
54 unit SQ HS
leucovorin calcium 10 mg Tablet
10 mg PO DAILY
Patient Comments:
06/05/24: take this 12 hours after monday dose of methotrexate
fluticasone propion-salmeterol [Advair Diskus] 250-50 mcg/dose Blister With Device
1 inh INHALATION R DAILY
methenamine hippurate 1 gram Tablet
1 g PO BID
nortriptyline 50 mg Capsule
50 mg PO DAILY
duloxetine 60 mg Capsule,Delayed Release(Dr/Ec)
60 mg PO DAILY
bumetanide 1 mg Tablet
1 mg PO DAILY
metoprolol succinate 50 mg Tablet Extended Release 24 Hr
50 mg PO BID Qty: 60 0RF
acetaminophen 325 mg Tablet
650 mg PO Q6HPRN PRN (Reason: mild pain/temp>100)
ipratropium-albuterol 0.5 mg-3 mg(2.5 mg base)/3 mL Solution For Nebulization
3 ml INHALATION R QID
ammonium lactate 12 % Lotion
1 applic TOPICAL DAILY
Rx Instructions:
b/l lower legs
therapeutic multivitamin Tablet
1 tab PO DAILY
methotrexate sodium 25 mg/mL Solution
25 mg SC SA
magnesium hydroxide [Milk of Magnesia] 400 mg/5 mL Suspension
30 ml PO [id number] PRN (Reason: no bm x3 days)
ascorbic acid (vitamin C) [Vitamin C] 500 mg Tablet
500 mg PO DAILY
bisacodyl 10 mg Suppository
10 mg MI DAILYPRN PRN (Reason: constipation, mom ineffective)
omeprazole 20 mg Capsule,Delayed Release(Dr/Ec)
20 mg PO DAILY
ergocalciferol (vitamin D2) 1,250 mcg (50,000 unit) Capsule
1,250 mcg PO TUFR
fluticasone propionate 50 mcg/actuation [place],Suspension
2 spray INTRANASAL BID
Patient Comments:
09/10/24: for 21 days, from 09/10/24-10/01/24
guaifenesin 400 mg Tablet
1,200 mg PO BID
Patient Comments:
09/10/24: for 5 days, from 09/10/24-09/15/24
tirzepatide 2.5 mg/0.5 mL Pen Injector
2.5 mg SC WE
Rx Instructions:
for 4 weeks
Xarelto 20 MG tablet
20 mg PO DAILY
Lactobac/Bifidobac [Visbiome]
2 cap PO DAILY Qty: 30 0RF
lisinopril 20 mg Tablet
10 mg PO DAILY Qty: 0 0RF
gabapentin [Neurontin] 800 MG tablet
900 mg PO TID Qty: 0 0RF
oxycodone 5 mg Tablet
5 mg PO Q4HPRN PRN (Reason: moderate pain) Qty: 14 0RF
insulin lispro [Humalog KwikPen Insulin] 100 UNIT/ML insulin pen
10 unit SC MEALS Qty: 0 0RF
Referrals:
Heron Santiago DO [Family Provider] -
Interventions
Interventions:
*Risk Screen - Suicide Last Done: 10/30/24 23:17
*General Assessment Last Done: 10/30/24 23:17
*Neglect/Abuse Screening Last Done: 10/30/24 23:17
*ED- Fall Risk Assessment Last Done: 10/30/24 23:17
*ED COVID-19 Vaccine History Last Done: 10/30/24 23:17
ED- Cardiac Assessment Last Done: 10/30/24 23:28
ED- Pulmonary Assessment Last Done: 10/30/24 23:34
Discharge Date and Time
Print Language: ALGERIAN
[2024-10-30 23:31] LABS: B.E. 6.2 mmol/L; HCO3 29.5 mmol/L (21-28); O2 Saturation % 98.8 % (94-98); PCO2 37 mmHg (35-48); PO2 105 mmHg (83-108); pH 7.51 (7.35-7.45)
[2024-10-30 23:35] LABS: O2 Therapy 100%
[2024-10-30 23:40] LABS: % Basophils 0.2 % (0-2); % Immature Granulocytes 1.3 % (0-0.5); % Monocytes 8.5 % (1.7-9.3); Absolute Immature Granulocytes 0.2 10^3/uL (0-0.05); Absolute Lymphocytes 1.9 10^3/uL (1.2-3.4); Absolute Neutrophils 8.9 10^3/uL (1.4-6.5); Hematocrit 35.4 % (39.0-52.0); Hemoglobin 11.5 g/dL (13.0-18.0); Mean Corp Hgb Conc. 32.5 g/dL (33.0-37.0); Mean Corpuscular Hgb 31.3 pg (27.0-31.0); Mean Corpuscular Volume 96.5 fL (80.0-94.0); Mean Platelet Volume 10.9 fL (7.4-10.4); Nucleated Red Blood Cells % 0 % (-); Platelet Count 207 10^3/uL (130-400); Red Blood Cell Count 3.67 10^6/uL (4.70-6.10); Red Cell Dist. Width 18.6 % (11.5-14.5); White Blood Cell Count 12.1 10^3/uL (4.8-10.8)
[2024-10-30 23:45] LABS: COVID-19 Antigen Negative (Negative)
[2024-10-30 23:46] VITALS: BP 74/29
[2024-10-30 23:46] LABS: Lactic Acid 2.1 mmol/L (0.7-2.0)
--- NOTE | 2024-10-30 23:51 | EDRN ---
Addendum entered by Jania Ibrahim RN 10/31/24 01:05:
OG tube output dark green. stomach is soft.
0115 Temperature collado placed 16 f
Addendum entered by Jania Ibrahim RN 10/31/24 00:00:
Pt resting comfortably in no acute distress at this time. OG tube placed
Original Note:
235 Dr. Metz began to Intubate pt. 20 Etomidate and 150 Succ administered.
[address] Metz
235 Pt BVM by RT Quiroz
2356 Intubation successful. 7.5 22 at lip
2356 Propofol 20 mcg/kg at 17.3 ml/hr
[2024-10-30 23:52] LABS: ALT (SGPT) 99 U/L (0-50); AST (SGOT) 153 U/L (17-59); Albumin 3.6 g/dl (3.5-5.0); Alkaline Phosphatase 229 U/L (38-126); Blood Urea Nitrogen 26 mg/dl (9-20); Calcium 8.8 mg/dl (8.4-10.2); Carbon Dioxide 30 mmol/L (22-30); Chloride 96 mmol/L (98-107); Creatine Phosphokinase 77 U/L (55-170); Glucose 157 mg/dl (70-99); Sodium 132 mmol/L (135-145); Total Bilirubin 0.9 mg/dl (0.2-1.3); Total Protein 7.1 g/dl (6.3-8.2); eGFR 47.06
[2024-10-30 23:56] VITALS: BP 110/79
[2024-10-30 23:58] LABS: APTT 49.4 Sec (23.4-35.0)
[2024-10-31] VITALS (121 sets, daily range): BP systolic 59–132; BP diastolic 36–95; BMI 41.4
[2024-10-31] MEDS: BENADRYL 50 MG IV (00:06)
[2024-10-31] MEDS: SOLU-CORTEF 100 MG IV (00:07)
[2024-10-31 00:10] LABS: Troponin I 0.035 ng/ml
[2024-10-31] MEDS: NSS 1000 IV ×2 (00:10→00:56)
[2024-10-31] MEDS: DIPRIVAN 100 IV ×4 (00:11→22:34)
[2024-10-31] MEDS: DEXTROSE 50% SYRINGE 25 GRAMS IV (00:50)
[2024-10-31] MEDS: NOVOLIN R 5 UNITS IV (00:51)
[2024-10-31] MEDS: CALCIUM GLUCONATE 1000 MG IV (00:53)
[2024-10-31 01:28] LABS: Glucose - Point of Care 176 mg/dl (70-99)
[2024-10-31] MEDS: LEVOPHED 250 IV ×4 (01:38→19:51)
[2024-10-31 01:53] LABS: Lipase 44 U/L (23-300)
--- NOTE | 2024-10-31 02:01 | HPS.HSE ---
Family Physician
-
Family Physician: Heron Santiago, DO
Chief Complaint
-
Hypoxia
History of Present Illness
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
rheumatoid arthritis, recent admission for acute hypoxic respiratory failure secondary to left lower lobe pneumonia a few weeks ago complicated by septic shock requiring massive pressors, acute CHF with preserved EF and acute kidney injury will now
presents to the emergency department from shelter with hypoxic respiratory failure and is status post intubation on arrival in the emergency department.
Patient unable to provide any history. Records from shelter stated that he was found slumped over in the chair with low pulse ox. Duration of this presentation is unknown. BIBEMS and minimally responsive upon arrival. He was immediately
placed on BiPAP on arrival in the emergency department. However he continued to have hypoxia and no improvement and was shortly intubated. Initial evaluation did show positive influenza testing.
At the time I saw him he was already on pressors, he was intubated and satting 100% on this 100% FiO2. Initial ABG on the BiPAP was 7.5 /105/29. He had a white count of 7.1 hemoglobin and platelet were otherwise unremarkable. ECG was
nonischemic and troponin was 0.035. He had a potassium of 6.0, creatinine of 1.5. Sodium was 132. Lactic acid was 2.1.
Chest x-ray by my read showed increased interstitial markings. CT of the head is negative for any acute intracranial process. CT PE is negative for PE and did not show any focal consolidation but did show scarring or atelectasis scattered
throughout the lungs consistent with aspiration. CT of the abdomen shows no acute intra-abdominal process and no urinary obstruction.
Patient started on pressors and was given said sepsis bolus of 2 L normal saline in the ED.
Medical History
Past Medical History
Past Medical History: Reports Other
Additional Past Medical History:
Permanent A-fib/A-flutter
HTN
CAD status post cardiac stent
DM2
HLD
Chronic back pain
Neuropathy
Asthma / COPD
Sleep apnea/CPAP setting 9 - O2 3 liters
GERD, Dysphagia
BPH
Nephrolithiasis
Gout
Rheumatoid Arthritis
Morbid Obesity
Past Surgical History: Reports Other
Additional Past Surgical History:
Back surgery x 2
Reported ankle surgery
2 knee replacement
Cardiac cath x 2 cardiac stent
Cardioversions x 2 for permanent A-fib
Right hip replacement
Social History
Tobacco: Non-smoker
Alcohol: None
Drug: None
Personal:
Living: With Family (daugther )
Employment: Retired
Family History
Family History: Not pertinent
Allergies / Home Medications
Allergies reflects when Allergies were last updated in [facility].
Home Medications with original date entered in [facility]
Allergy/Medication List:
Allergies
Allergy/AdvReac Type Severity Reaction Status Date / Time
anakinra Allergy Unknown Unknown Verified 10/30/24 23:45
levofloxacin [From Levaquin] Allergy Unknown Unknown Verified 10/30/24 23:45
alprazolam [From Xanax] Allergy hieves, SOB Verified 10/30/24 23:45
amoxicillin [From Augmentin] Allergy Unknown Verified 10/30/24 23:45
celecoxib [From Celebrex] Allergy hives, SOB Verified 10/30/24 23:45
cisapride [From Propulsid] Allergy Unknown Verified 10/30/24 23:45
clarithromycin [From Biaxin] Allergy SOB, hives Verified 10/30/24 23:45
clavulanic acid Allergy Unknown Verified 10/30/24 23:45
[From Augmentin]
clindamycin HCl Allergy Hives, SOB Verified 10/30/24 23:45
[From Cleocin]
codeine Allergy Unknown Verified 10/30/24 23:45
famotidine [From Pepcid] Allergy hives SOB Verified 10/30/24 23:45
hydrocodone [From Vicodin] Allergy Unknown Verified 10/30/24 23:45
hydroxychloroquine sulfate Allergy hives, SOB Verified 10/30/24 23:45
[From Plaquenil]
Iodinated Contrast Media Allergy Hives Verified 10/30/24 23:45
Penicillins Allergy Hives Verified 10/30/24 23:45
potassium Allergy Unknown Verified 10/30/24 23:45
Sulfa (Sulfonamide Allergy Unknown Verified 10/30/24 23:45
Antibiotics)
Home Medications
prednisone 5 mg tablet 5 mg PO DAILY Anti-Inflammatory 12/23/14
tamsulosin 0.4 mg capsule 0.4 mg PO DAILY Urinary Issue 12/23/14
allopurinol 100 mg tablet 100 mg PO DAILY Gout 07/01/19
atorvastatin 40 mg tablet (Lipitor) 40 mg PO HS High Cholesterol 07/01/19
finasteride 5 mg tablet 5 mg PO DAILY Urinary Issue 07/22/19
omega-3 acid ethyl esters 1 gram capsule (Lovaza) 1 gm PO TID Supplement 07/22/19
insulin glargine 100 unit/mL subcutaneous solution (Lantus U-100 Insulin) 54 unit SQ HS Diabetes 12/03/20
leucovorin calcium 10 mg tablet 10 mg PO DAILY rheumatoid arthritis 04/17/23
bumetanide 1 mg tablet 1 mg PO DAILY Fluid Retention/Swelling 06/05/24
duloxetine 60 mg capsule,delayed release 60 mg PO DAILY Mental Health/Anxiety 06/05/24
fluticasone 250 mcg-salmeterol 50 mcg/dose blistr powdr for inhalation (Advair Diskus) 1 inh inhalation R DAILY Lung/Breathing Issues 06/05/24
methenamine hippurate 1 gram tablet 1 g PO BID prophylaxis 06/05/24
nortriptyline 50 mg capsule 50 mg PO DAILY Neurological Condition 06/05/24
metoprolol succinate 50 mg tablet,extended release 24 hr 50 mg PO BID #60 tabs 06/11/24
acetaminophen 325 mg tablet 650 mg PO Q6HPRN PRN mild pain/temp>100 09/10/24
ammonium lactate 12 % lotion 1 applic topical DAILY Skin Issues 09/10/24
ascorbic acid (vitamin C) 500 mg tablet (Vitamin C) 500 mg PO DAILY Supplement 09/10/24
bisacodyl 10 mg rectal suppository 10 mg OR DAILYPRN PRN constipation, mom ineffective 09/10/24
ergocalciferol (vitamin D2) 1,250 mcg (50,000 unit) capsule 1,250 mcg PO TUFR Supplement 09/10/24
fluticasone propionate 50 mcg/actuation nasal spray,suspension 2 spray intranasal BID Allergies 09/10/24
guaifenesin 400 mg tablet 1,200 mg PO BID Congestion 09/10/24
ipratropium 0.5 mg-albuterol 3 mg (2.5 mg base)/3 mL nebulization soln 3 ml inhalation R QID Lung/Breathing Issues 09/10/24
magnesium hydroxide 400 mg/5 mL oral suspension (Milk of Magnesia) 30 ml PO [id number] PRN no bm x3 days 09/10/24
methotrexate sodium 25 mg/mL injection solution 25 mg SC SA RA 09/10/24
omeprazole 20 mg capsule,delayed release 20 mg PO DAILY Gastrointestinal Issue 09/10/24
rivaroxaban 20 mg tablet (Xarelto) 20 mg PO DAILY Blood Clot Prevention/Tx 09/10/24
therapeutic multivitamin 1 tab PO DAILY Supplement 09/10/24
tirzepatide 2.5 mg/0.5 mL subcutaneous pen injector 2.5 mg SC WE Diabetes 09/10/24
Lactobac/Bifidobac [Visbiome] 2 cap PO DAILY #30 ea 09/17/24
gabapentin 800 mg tablet (Neurontin) 900 mg (1.125 x 800 mg) PO TID Neurological Condition #0 tabs 09/17/24
insulin lispro 100 unit/mL subcutaneous pen (Humalog KwikPen (U-100) Insulin) 10 unit (0.1 mL) SC MEALS Diabetes #0 mL 09/17/24
lisinopril 20 mg tablet 10 mg (1/2 x 20 mg) PO DAILY Blood Pressure #0 tabs 09/17/24
oxycodone 5 mg tablet 5 mg PO Q4HPRN PRN moderate pain #14 tabs 09/17/24
Review of Systems
-
Unable to obtain full review of systems at this time due to: Patient Intubation
Physical Exam
Vital Signs
Vital Signs
Pulse Resp BP Pulse Ox
94 15 79/51 100
10/31/24 02:00 10/31/24 02:00 10/31/24 01:55 10/31/24 02:00
Physical Exam
General: Intubated
HEENT: NormoCephalic, Anicteric and Atraumatic
Respiratory: Rhonchi
Cardiac: S1/S2 and Irregular Rhythm
Breast: Deferred by me
GI: Soft, Non Distended, Normal Bowel Sounds and Other (NG tube)
Genito-urinary: Deferred by me
Musculoskeletal: No Clubbing, No Cyanosis and No Edema
Skin: Warm
Neuro: Sedated
Hematologic/Lymphatic: No Lymphadenopathy
Laboratory Results
-
10/30/24 23:23
Laboratory Results
APTT 49.4 Sec (23.4-35.0) H 10/30/24 23:27
pH 7.51 (7.35-7.45) H 10/30/24 23:23
pCO2 37 mmHg (35-48) 10/30/24 23:23
pO2 105 mmHg (83-108) 10/30/24 23:23
HCO3 29.5 mmol/L (21-28) H 10/30/24 23:23
Lactic Acid 2.1 mmol/L (0.7-2.0) H 10/30/24 23:23
Total Bilirubin 0.9 mg/dl (0.2-1.3) 10/30/24 23:23
AST 153 U/L (17-59) H 10/30/24 23:23
ALT 99 U/L (0-50) H 10/30/24 23:23
Alkaline Phosphatase 229 U/L (38-126) H 10/30/24 23:23
Troponin I 0.035 ng/ml H* 10/30/24 23:23
Lipase 44 U/L (23-300) 10/30/24 23:23
Data Reviewed
-
Diagnostic Radiology: Image Personally Visualized and interpreted
CT Scan: Report Reviewed by me
Medical Tests (Nuc Med, Echo, EKG etc): Image Personally Visualized and interpreted
Lab Data: Labs Reviewed by me
Old Records: Reviewed
Impression/Plan
-
IMPRESSION:
78-year-old with multiple comorbidities including BiPAP dependent COPD and JOHNNIE, hypertension, hyperlipidemia, diabetes, permanent atrial fibrillation on anticoagulation, morbid obesity recent admission for pneumonia with sepsis presents to the
emergency department after being found obtunded and hypoxic respiratory failure status post BiPAP without improvement and now intubated. Found to have influenza A. X-ray is negative for acute consolidation. There is interstitial markings are
increased. CT of the chest is negative for PE and negative for consolidation and again did showed scarring/atelectasis throughout. CT of the head was negative for any acute intracranial process. No abdominal findings on CT of the abdomen. Labs
notable for leukocytosis 12.1 and a potassium of 6.0 with a creatinine of 1.5. Troponin was 0.035. Overall picture is consistent with acute ventilator dependent hypoxic respiratory failure from influenza A that could be complicated by superimposed
pneumonia or CHF.
PLAN:
1. Pneumonia- Influenza A w/ sepsis
- admit to ICU
- blood and urine cultures sent
- start broad spectrum abx with cefepime/vancomycin
- tamiflu 75 q 12
- checking procalcition, urinary legionella/strep ags
- s/p 2 L NS. Known CHF w/ preserved EF
- started pressors
- ID consult
2. Hypoxic Respiratory failure - Acute on chronic now vent dependent. Likely secondary to influenza w/ pna. Arrived actually alkalotic
- Intubated, AC 12 600 100 5
- check abg, consider reducing VT to improve venous return and reduce peak pressures
- sedation on propofol
- currently tolerating vent at 100% sat on 100% FIO2
- RTC duonebs
- solumedrol 40 q 12
- sedation and paralysis as needed to maintain ventilatory status
3. CHF - Known CHFpEF. BNP pending. Does not appear to be in acute CHF with severe pulm edema
- holding diuretics for bp now, consider restart once stabilizde
4. DM II
- npo
- moderate sliding scale insulin for now
5. Permanent AFIB - AFIB with rates in the 110s
- continue Xarelto for now
- rate control as tolerated by bp
6. Hyperkalemia - Got Calcium and Insulin dextrose. Non-oliguric mild DEONDRE
- IV fluids given
- repeat K pending
- normal ecg, monitor
Holding methenamine, lisinopril, methotrexate and gabapentin
DVT PPX - on Xarelto
Code status - Full Code
[2024-10-31 02:05] LABS: NT-proBNP 3680 pg/ml
[2024-10-31] MEDS: MAXIPIME 2000 MG IV (02:42)
[2024-10-31] MEDS: VANCOCIN 540 MG IV (03:08)
[2024-10-31 03:15] LABS: Glucose - Point of Care 204 mg/dl (70-99)
[2024-10-31 03:19] LABS: Urine Albumin 2+ (Neg - Trace); Urine Bilirubin Negative (Negative); Urine Glucose Negative (Negative); Urine Ketone Negative (Negative); Urine Leukocyte 3+ (Negative); Urine Nitrite Negative (Negative); Urine Occult Blood Negative (Negative); Urine Urobilinogen Negative (Neg - 1+)
[2024-10-31 03:24] LABS: Urine Character Slightly Cloudy (Clear); Urine Color Amber
[2024-10-31 03:33] LABS: B.E. 1.6 mmol/L; HCO3 25.9 mmol/L (21-28); O2 Saturation % 98.6 % (94-98); PCO2 39 mmHg (35-48); PO2 125 mmHg (83-108); pH 7.43 (7.35-7.45)
[2024-10-31 03:34] LABS: Blood Urea Nitrogen 28 mg/dl (9-20); Calcium 7.8 mg/dl (8.4-10.2); Carbon Dioxide 26 mmol/L (22-30); Chloride 96 mmol/L (98-107); Glucose 170 mg/dl (70-99); Potassium 5.1 mmol/L (3.5-5.1); Sodium 131 mmol/L (135-145); eGFR 51.13
[2024-10-31 03:34] LABS: O2 Therapy 100%
[2024-10-31 03:56] LABS: Urine Amorphous Seen; Urine Bacteria Moderate (Negative); Urine Squamous Cell >30 /LPF (Few); Urine Yeast Moderate (Negative)
[2024-10-31 03:57] LABS: Urine White Cell >100 /HPF (0-5)
[2024-10-31 04:03] LABS: Procalcitonin 1.12 ng/ml (0.0-0.25)
[2024-10-31] MEDS: TAMIFLU PO (04:52)
[2024-10-31] MEDS: SOLU-MEDROL PF 60 MG IV (04:52)
--- NOTE | 2024-10-31 05:00 | PTCARENOTE ---
Received pt from ER intubated and sedated,AFIB teletypesetter monitor,Pts O2 sat 96%,ventilatory mechanics maintained,Pt tolerated transfer well max assist to slide pt into bed.Physical assessment preformed,febrile core temp at 101 tylenol given via OG
tube. Pt maintained on Levophed and Propofol upon arrival.See full assessment on worklist.Close observation ongoing.
[2024-10-31 05:18] LABS: Hematocrit 31.9 % (39.0-52.0); Hemoglobin 10.5 g/dL (13.0-18.0); Mean Corp Hgb Conc. 32.9 g/dL (33.0-37.0); Mean Corpuscular Hgb 31.5 pg (27.0-31.0); Mean Corpuscular Volume 95.8 fL (80.0-94.0); Mean Platelet Volume 10.6 fL (7.4-10.4); Platelet Count 193 10^3/uL (130-400); Red Blood Cell Count 3.33 10^6/uL (4.70-6.10); Red Cell Dist. Width 18.7 % (11.5-14.5); White Blood Cell Count 18.4 10^3/uL (4.8-10.8)
[2024-10-31] MEDS: TYLENOL ORAL SOLUTION 650 MG TUBE (05:23)
[2024-10-31] MEDS: TAMIFLU 75 MG PO ×2 (05:24→19:52)
[2024-10-31 05:34] LABS: Triglycerides 183 mg/dl (10-149)
[2024-10-31 05:36] LABS: ALT (SGPT) 73 U/L (0-50); AST (SGOT) 90 U/L (17-59); Albumin 2.8 g/dl (3.5-5.0); Alkaline Phosphatase 190 U/L (38-126); Blood Urea Nitrogen 27 mg/dl (9-20); Calcium 7.7 mg/dl (8.4-10.2); Carbon Dioxide 22 mmol/L (22-30); Chloride 99 mmol/L (98-107); Estimated Creatinine Clearance 62 ml/min; Glucose 226 mg/dl (70-99); Magnesium 1.4 mg/dl (1.6-2.3); Phosphorus 4.2 mg/dl (2.5-4.5); Sodium 133 mmol/L (135-145); Total Bilirubin 1.1 mg/dl (0.2-1.3); Total Protein 5.8 g/dl (6.3-8.2); Triglycerides 152 mg/dl (10-149); eGFR 51.13
[2024-10-31 05:50] LABS: Procalcitonin 1.22 ng/ml (0.0-0.25)
--- NOTE | 2024-10-31 06:19 | W.PN.SEPSIS ---
Sepsis
Vital Signs
Temp Pulse Resp BP Pulse Ox
101.5 F H 103 15 97/53 96
10/31/24 04:39 10/31/24 04:15 10/31/24 04:15 10/31/24 04:06 10/31/24 06:11
Physical Exam
Physical Exam:
A focused exam was performed after fluid resuscitation.
Capillary Refill
Bilateral Upper Extremity:
Geno Time: Less than 3 sec
Bilateral Lower Extremity:
Geno Time: Less than 3 sec
Pulse Evaluation
Bilateral Radial:
Pulse Evaluation: Present
Bilateral Dorsalis Pedis:
Pulse Evaluation: Present
[2024-10-31] MEDS: MAGNESIUM SULFATE 50 IV (06:23)
[2024-10-31 06:26] LABS: Lactic Acid 1.7 mmol/L (0.7-2.0)
[2024-10-31] MEDS: DUONEB 3 ML INH ×4 (07:07→20:14)
--- NOTE | 2024-10-31 07:29 | PHA.VAN.IN ---
Assessment
- Assessment
Renal Function: Appears elevated from baseline
Maximum Temperature: 101.5
Concomitant Antimicrobials: Cefepime 1000mg Q6H, Oseltamavir 75mg BID
Historical Micro: History of MRSA infection
AUC Dosing Plan
- Empiric Dosing
Initial / Loading Dose: 2000mg on 10/31
Maintenance Regimen: Dose by levels
Plan
- Plan
Monitoring: Random level with morning labs on 11/01 @0600
Pharmacokinetics Vancomycin I
- -
Patient Age: 78
Patient Sex: Male
Vancomycin Day #: 1
Indication: Pulmonary/Respiratory
Requesting Provider: Joe Crowell
Pertinent Antimicrobial Allergies:
Penicillins,levofloxacin,Penicillins,Sulfa,Clarithromycin,Clindamycin
Height / Weight:
Height 6 ft
Actual Weight 138.3 kg
Pertinent Past Medical History: COPD,DM
- Vital Signs / Lab Results
Temp Pulse Resp BP Pulse Ox
101.5 F H 98 15 97/53 97
10/31/24 04:39 10/31/24 07:16 10/31/24 07:16 10/31/24 04:06 10/31/24 07:16
Lab Results - Hematology
10/30/24 10/31/24
23:23 04:49
WBC 12.1 H 18.4 H
Lab Results - Chemistry
10/30/24 10/31/24 10/31/24
23:23 02:56 04:49
BUN 26 H 28 H 27 H
Creatinine 1.5 H 1.4 H 1.4 H
Estimated Creat Clear 62
Albumin 3.6 2.8 L
10/30/24 10/31/24
23:23 04:49
Lactic Acid 2.1 H 1.7
Lab Results - Urine
10/31/24
02:56
Urine Nitrite (Reflex) Negative
Leukocyte Esterase Rfl 3+ A
Urine WBC (Reflex) >100 A
Ur Squamous Epith Cells >30
Urine Bacteria (Reflex) Moderate A
Microbiology Results
10/30/24 23:23 Influenza Types A & B ([facility]) - Final
Nasal Swab Influenza A Positive, NAAT
--- NOTE | 2024-10-31 07:50 | CON.INTV ---
Consultation
Consultation Request
Date/Time Consultation Requested: 10/31/2024
Date/Time Consultation Performed: 10/31/2024
Requesting Provider: Zoey Crowell
Performing Provider: Maury Adams
Reason for Consultation: Respiratory failure
Medical History
-
Chief Complaint: Respiratory distress
History of Present Illness:
Patient is a 78-year-old gentleman with known history of COPD and JOHNNIE supposed to be on nightly CPAP, heart failure with preserved ejection fraction, paroxysmal atrial fibrillation on Xarelto, hypertension, morbid obesity, rheumatoid arthritis,
steroid-dependent for the same, who developed increasing shortness of breath and hypoxia at nursing facility. He was brought to the emergency room and was noted to be hypoxic and hypotensive. Initially he was placed on BiPAP but he could not
tolerate it and continue to stay hypoxic which eventually led to intubation. Also he had worsening encephalopathy with minimal responsiveness on initial presentation.
Patient was recently admitted to the hospital with left lower lobe pneumonia and septic shock requiring pressors and admission to the hospital. He also developed acute kidney injury at that time.
History is primarily obtained from medical records as well as discussion with patient's daughter who is also the next of kin and medical decision maker. She reported that patient is not very compliant with CPAP and also reports that when she talked
to him last his breathing was not sounding at his baseline.
Chest x-ray appears to be essentially at baseline. CT head is negative for any acute process. CT PE was pursued and it was negative for any pulmonary embolism or focal consolidation but did show some scarring and atelectasis with concern for
possible aspiration. CT abdomen pelvis initially unremarkable.
Patient was given 2 L of crystalloids in the emergency room followed by initiation of pressors and was admitted to the ICU.
During my evaluation, patient was on Levophed at 15 and was intubated and mechanically ventilated.
Past Medical History
Past Medical History: Reports Other
Additional Past Medical History:
Permanent A-fib/A-flutter
HTN
CAD status post cardiac stent
DM2
HLD
Chronic back pain
Neuropathy
Asthma / COPD
Sleep apnea/CPAP setting 9 - O2 3 liters
GERD, Dysphagia
BPH
Nephrolithiasis
Gout
Rheumatoid Arthritis
Morbid Obesity
Past Surgical History: Reports Other
Additional Past Surgical History:
Back surgery x 2
Reported ankle surgery
2 knee replacement
Cardiac cath x 2 cardiac stent
Cardioversions x 2 for permanent A-fib
Right hip replacement
Social History
Tobacco: Non-smoker
Alcohol: None
Drug: None
Personal:
Living: With Family (daugther )
Employment: Retired
Family History
Family History: Not pertinent
Allergies / Home Medications
Allergies
Allergy/AdvReac Type Severity Reaction Status Date / Time
anakinra Allergy Unknown Unknown Verified 10/30/24 23:45
levofloxacin [From Levaquin] Allergy Unknown Unknown Verified 10/30/24 23:45
alprazolam [From Xanax] Allergy hieves, SOB Verified 10/30/24 23:45
amoxicillin [From Augmentin] Allergy Unknown Verified 10/30/24 23:45
celecoxib [From Celebrex] Allergy hives, SOB Verified 10/30/24 23:45
cisapride [From Propulsid] Allergy Unknown Verified 10/30/24 23:45
clarithromycin [From Biaxin] Allergy SOB, hives Verified 10/30/24 23:45
clavulanic acid Allergy Unknown Verified 10/30/24 23:45
[From Augmentin]
clindamycin HCl Allergy Hives, SOB Verified 10/30/24 23:45
[From Cleocin]
codeine Allergy Unknown Verified 10/30/24 23:45
famotidine [From Pepcid] Allergy hives SOB Verified 10/30/24 23:45
hydrocodone [From Vicodin] Allergy Unknown Verified 10/30/24 23:45
hydroxychloroquine sulfate Allergy hives, SOB Verified 10/30/24 23:45
[From Plaquenil]
Iodinated Contrast Media Allergy Hives Verified 10/30/24 23:45
Penicillins Allergy Hives Verified 10/30/24 23:45
potassium Allergy Unknown Verified 10/30/24 23:45
Sulfa (Sulfonamide Allergy Unknown Verified 10/30/24 23:45
Antibiotics)
Home Medications
�Medication �Instructions �Recorded �Confirmed �Last Taken �Type
prednisone 5 mg tablet 5 mg PO DAILY Anti-Inflammatory 12/23/14 09/10/24 06/04/24 History
tamsulosin 0.4 mg capsule 0.4 mg PO DAILY Urinary Issue 12/23/14 09/10/24 06/04/24 History
allopurinol 100 mg tablet 100 mg PO DAILY Gout 07/01/19 09/10/24 06/04/24 History
atorvastatin 40 mg tablet (Lipitor) 40 mg PO HS High Cholesterol 07/01/19 09/10/24 06/04/24 History
finasteride 5 mg tablet 5 mg PO DAILY Urinary Issue 07/22/19 09/10/24 06/05/24 History
omega-3 acid ethyl esters 1 gram 1 gm PO TID Supplement 07/22/19 09/10/24 06/05/24 History
capsule (Lovaza)
insulin glargine 100 unit/mL 54 unit SQ HS Diabetes 12/03/20 09/10/24 06/04/24 History
subcutaneous solution (Lantus
U-100 Insulin)
leucovorin calcium 10 mg tablet 10 mg PO DAILY rheumatoid arthritis 04/17/23 09/10/24 06/03/24 History
bumetanide 1 mg tablet 1 mg PO DAILY Fluid 06/05/24 09/10/24 Unknown History
Retention/Swelling
duloxetine 60 mg capsule,delayed 60 mg PO DAILY Mental 06/05/24 09/10/24 06/05/24 History
release Health/Anxiety
fluticasone 250 mcg-salmeterol 50 1 inh inhalation R DAILY 06/05/24 09/10/24 06/05/24 History
mcg/dose blistr powdr for Lung/Breathing Issues
inhalation (Advair Diskus)
methenamine hippurate 1 gram tablet 1 g PO BID prophylaxis 06/05/24 09/10/24 06/04/24 History
nortriptyline 50 mg capsule 50 mg PO DAILY Neurological 06/05/24 09/10/24 06/05/24 History
Condition
metoprolol succinate 50 mg 50 mg PO BID #60 tabs 06/11/24 09/10/24 Unknown Rx
tablet,extended release 24 hr
acetaminophen 325 mg tablet 650 mg PO Q6HPRN PRN mild 09/10/24 09/10/24 Unknown History
pain/temp>100
ammonium lactate 12 % lotion 1 applic topical DAILY Skin Issues 09/10/24 09/10/24 Unknown History
ascorbic acid (vitamin C) 500 mg 500 mg PO DAILY Supplement 09/10/24 09/10/24 Unknown History
tablet (Vitamin C)
bisacodyl 10 mg rectal suppository 10 mg [place] DAILYPRN PRN 09/10/24 09/10/24 Unknown History
constipation, mom ineffective
ergocalciferol (vitamin D2) 1,250 1,250 mcg PO TUFR Supplement 09/10/24 09/10/24 Unknown History
mcg (50,000 unit) capsule
fluticasone propionate 50 2 spray intranasal BID Allergies 09/10/24 09/10/24 Unknown History
mcg/actuation nasal
spray,suspension
guaifenesin 400 mg tablet 1,200 mg PO BID Congestion 09/10/24 09/10/24 Unknown History
ipratropium 0.5 mg-albuterol 3 mg 3 ml inhalation R QID 09/10/24 09/10/24 Unknown History
(2.5 mg base)/3 mL nebulization Lung/Breathing Issues
soln
magnesium hydroxide 400 mg/5 mL 30 ml PO [id number] PRN no bm x3 days 09/10/24 09/10/24 Unknown History
oral suspension (Milk of Magnesia)
methotrexate sodium 25 mg/mL 25 mg SC SA RA 09/10/24 09/10/24 Unknown History
injection solution
omeprazole 20 mg capsule,delayed 20 mg PO DAILY Gastrointestinal 09/10/24 09/10/24 Unknown History
release Issue
rivaroxaban 20 mg tablet (Xarelto) 20 mg PO DAILY Blood Clot 09/10/24 09/10/24 Unknown History
Prevention/Tx
therapeutic multivitamin 1 tab PO DAILY Supplement 09/10/24 09/10/24 Unknown History
tirzepatide 2.5 mg/0.5 mL 2.5 mg SC WE Diabetes 09/10/24 09/10/24 Unknown History
subcutaneous pen injector
Lactobac/Bifidobac [Visbiome] 2 cap PO DAILY #30 ea 09/17/24 Unknown Rx
gabapentin 800 mg tablet 900 mg (1.125 x 800 mg) PO TID 09/17/24 09/10/24 06/05/24 Rx
(Neurontin) Neurological Condition #0 tabs
insulin lispro 100 unit/mL 10 unit (0.1 mL) SC MEALS Diabetes 09/17/24 09/10/24 06/05/24 Rx
subcutaneous pen (Humalog KwikPen #0 mL
(U-100) Insulin)
lisinopril 20 mg tablet 10 mg (1/2 x 20 mg) PO DAILY Blood 09/17/24 09/10/24 Unknown Rx
Pressure #0 tabs
oxycodone 5 mg tablet 5 mg PO Q4HPRN PRN moderate pain 09/17/24 09/10/24 Unknown Rx
#14 tabs
Review of Systems
-
Unable to Obtain full review of systems at this time due to: Patient Intubation
Vitals / Labs / Diagnostic Testing
Vital Signs
Temp Pulse Resp BP Pulse Ox
101.5 F H 99 15 108/49 97
10/31/24 04:39 10/31/24 07:30 10/31/24 07:30 10/31/24 07:30 10/31/24 07:30
Lab Data
10/31/24 04:49
10/31/24 04:49
Laboratory Results
10/30/24 10/30/24 10/31/24
23:23 23:27 00:19
APTT 49.4 H
pH 7.51 H Cancelled
pCO2 37 Cancelled
pO2 105 Cancelled
HCO3 29.5 H Cancelled
O2 Delivery Level 100% Cancelled
10/31/24
03:01
APTT
pH 7.43
pCO2 39
pO2 125 H
HCO3 25.9
O2 Delivery Level 100%
Microbiology
10/30/24 23:23 Nasal Swab Influenza Types A & B (YOKASTA) - Final
Influenza A Positive, NAAT
Diagnostic Testing:
Physical Exam
-
HEENT: Normocephalic
Cardiovascular: S1/S2
Respiratory: Clear and Non-Labored Respirations
GI: Soft
Neurology: Other (Sedated on ventilator)
Skin: Warm
General: Comfortable
Assessment
-
#1. Acute hypoxic respiratory failure in the setting of influenza A infection
-Patient's respiratory failure is multifactorial. This is a morbidly obese gentleman was supposed to be on nightly CPAP for JOHNNIE who in addition has heart failure with preserved ejection fraction and recently likely contracted influenza A which led
to further respiratory decompensation. He failed BiPAP in the emergency room
-Continue mechanical ventilation with current setting of volume 600, PEEP increased to 8, respiratory rate 12, 40% FiO2. 7.36, 40, 76 at 40% FiO2
-Continue broad-spectrum antibiotics in view of shock
-Continue Tamiflu
-Discontinue twice daily Solu-Medrol due to influenza A infection, and start stress dose steroid as patient chronically takes 5 of prednisone, continue Solu-Medrol 20 daily
-
Follow-up chest x-ray and ABG in a.m
#2. Shock, suspect septic shock.
-Follow-up on blood cultures
-Continue Levophed, add vasopressin
-Consent was obtained and a left-sided IJ central line was placed
-Patient received 2 L of IV fluid in the emergency room and on exam appears somewhat hypovolemic with collapsible vasculature as noted during POCUS, will give Ringer lactate 500 mL bolus and monitor
-Hold off diuresis for now
-Serial ABG and lactate
-CT and chest x-ray are not suggestive of pneumonia. If cultures stay negative for 48 hours, will consider stopping antibiotics. Await urine cultures
#3. Diabetes mellitus
-Hyperglycemia likely exacerbated
by steroids and acute illness
-Start insulin infusion
#4. History of COPD, morbid obesity and questionable JOHNNIE
-Currently patient is not wheezing, no auto PEEP noted
-Presentation not suggestive of COPD exacerbation
-When ready for extubation, will extubate to BiPAP
#5. History of coronary artery disease status post PCI
-Troponin downtrending
#6. Heart failure with preserved ejection fraction
-Current presentation does not appear to be related to volume overload rather patient looks hypovolemic
-S/p 2 L bolus in the emergency room, followed by another 500 mL bolus this morning
-Hold diuretics
-Chest x-ray in a.m. to evaluate fluid status
-Monitor intake and output closely
#7. Paroxysmal atrial fibrillation, rate is normal
-Start vasopressin and try to lower dose of Levophed in view of risk of rapid ventricular rate
-Continue Xarelto for anticoagulation
#8. History of rheumatoid arthritis with chronic prednisone use
-Continue Solu-Medrol 20 daily while patient is critically ill and dose can be decreased back to home dose of prednisone once patient recovers from shock
-Once pressor dose stabilizes we will start tube feeding
Critical Care time 70 mins -- The patient is admitted for acute critical illness for the treatment of vital organ failure and/or prevention of further life-threatening conditions. Total care includes time spent in review of history, physical exam,
medications, hemodynamic/ventilator parameters, laboratory data, imaging and discussion with house staff, pharmacy, respiratory therapy, unleavened dough mixer, and nursing. This time includes the time spent placing central line and left internal jugular vein.
[2024-10-31] MEDS: XARELTO 20 MG TUBE (07:54)
[2024-10-31] MEDS: PROSCAR 5 MG TUBE (07:54)
[2024-10-31] MEDS: FLOMAX 0.4 MG TUBE (07:54)
[2024-10-31] MEDS: MAXIPIME 1000 MG IV ×3 (07:54→19:52)
[2024-10-31] MEDS: PROTONIX IV 40 MG IV (07:55)
[2024-10-31] MEDS: NSS (PRESERVATIVE FREE) 10 ML IV (07:55)
[2024-10-31] MEDS: LAC HYDRIN, AM LACTIN LOTION 1 APPLIC TOPICAL (07:55)
[2024-10-31] MEDS: STERILE WATER FOR INJECTION 10 ML IV ×3 (08:01→19:52)
--- NOTE | 2024-10-31 08:20 | PTCARENOTE ---
Assumed care of pt at 0700. VSS with afib in 80-90s and BP supported with Levophed. Pt intubated with 7.5ETT, AC 12/600/5/80%. Manager Travel to bedside and PEE to 8, FiO2 to 60%. SpO2 95-97%. Diminished lung sounds. Pt sedated with RASS -2 on
propofol, + cough/gag/withdraws to pain. PERRLA. OGT to LIWS. Wallace draining ample yellow urine. Lotion applied to BLE.
[2024-10-31] MEDS: PITRESSIN 100 IV ×2 (08:48→17:03)
[2024-10-31] MEDS: NOVOLOG FLEXPEN-MODERATE RESISTANCE 9 UNITS SC (08:54)
[2024-10-31 09:22] LABS: B.E. -2.7 mmol/L; HCO3 22.6 mmol/L (21-28); O2 Saturation % 95.3 % (94-98); PCO2 40 mmHg (35-48); PO2 76 mmHg (83-108); pH 7.36 (7.35-7.45)
--- NOTE | 2024-10-31 09:59 | CON.ID ---
Consultation
-
Date/Time Consultation Requested: October 31, 2024 0345
Date/Time Consultation Performed: October 31, 2024 1000
Requesting Provider: Dr. Kayla Crowell
Performing Provider: Dr. Jania Diaz
Reason for Consultation: Influenza A, sepsis
Chief Complaint / Past History
Chief Complaint
Hypoxia
History of Present Illness
History obtained from review medical records since patient is currently intubated, sedated unable to provide any history. He is a 78-year-old male with diabetes mellitus, neuropathy, rheumatoid arthritis on methotrexate, leucovorin and low-dose
prednisone, coronary disease, class III obesity, sleep apnea on BiPAP, COPD recent hospitalization Sep 11 to Sep 17 with septic shock, acute heart failure, DEONDRE, hypoxic respiratory failure, treated for left lower lobe pneumonia. He was then
discharged to long-term facility. Last night patient was found unresponsive slumped over his chair. He was extremely hypoxic. Upon arrival to ED he was intubated. Initial chest x-ray low lung volumes without infiltrates. Influenza A+.
Febrile 101.5. White count of 17. He is in DEONDRE. Patient hypotensive requiring pressor. He is currently on oseltamivir, vancomycin, cefepime.
Past History
Additional Past Medical History:
DM2
neuropathy
COPD
Afib hx ablation, cardioversion
CAD s/p stent
HFpEF
RA on MTX, leucovorin, folic acid, 5mg prednisone
HTN
dyslipidemia
sleep apnea on CPAP
nephrolithiasis
Chronic back pain
BPH
Sacral decubitus
class III obesity
bilateral TKR
right SONIA
Spine surgery
hernia repair
esophageal stricture dilation
BLE fracture
Allergy History:
anakinra Allergy (Unknown, Verified 10/30/24 23:45)
Unknown
levofloxacin [From Levaquin] Allergy (Unknown, Verified 10/30/24 23:45)
Unknown
alprazolam [From Xanax] Allergy (Verified 10/30/24 23:45)
hieves, SOB
amoxicillin [From Augmentin] Allergy (Verified 10/30/24 23:45)
Unknown
celecoxib [From Celebrex] Allergy (Verified 10/30/24 23:45)
hives, SOB
cisapride [From Propulsid] Allergy (Verified 10/30/24 23:45)
Unknown
clarithromycin [From Biaxin] Allergy (Verified 10/30/24 23:45)
SOB, hives
clavulanic acid [From Augmentin] Allergy (Verified 10/30/24 23:45)
Unknown
clindamycin HCl [From Cleocin] Allergy (Verified 10/30/24 23:45)
Hives, SOB
codeine Allergy (Verified 10/30/24 23:45)
Unknown
famotidine [From Pepcid] Allergy (Verified 10/30/24 23:45)
hives SOB
hydrocodone [From Vicodin] Allergy (Verified 10/30/24 23:45)
Unknown
hydroxychloroquine sulfate [From Plaquenil] Allergy (Verified 10/30/24 23:45)
hives, SOB
Iodinated Contrast Media Allergy (Verified 10/30/24 23:45)
Hives
Penicillins Allergy (Verified 10/30/24 23:45)
Hives
potassium Allergy (Verified 10/30/24 23:45)
Unknown
Sulfa (Sulfonamide Antibiotics) Allergy (Verified 10/30/24 23:45)
Unknown
Medications Reviewed: Yes
Current Antibiotics:
Oseltamavir
Cefepime 1 g every 6
Vancomycin
Social History
Tobacco: Non-Smoker
Alcohol: None
Drug: None
Personal:
Living: Assisted
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
Family History
Family History: Not Pertinent
Review of Systems
Review of Systems
Unable to obtain as patient currently intubated and sedated.
Vital Signs
Temp Pulse Resp BP Pulse Ox
99.1 F 90 17 104/62 96
10/31/24 08:09 10/31/24 09:00 10/31/24 09:00 10/31/24 09:00 10/31/24 09:02
Selected Entries
10/31/24
04:39
Temp 101.5 F H
Physical Exam
Physical Exam
Constitutional: Acutely Ill and Obese
Eyes: No Conjunctival Hemorrhage and Sclera Anicteric
Cardiovascular: Irregular Rate and S1/S2
Pulmonary: Other (Anterior lungs clear); Negative Wheezes
Gastrointestinal: Soft, Non Tender, Non Distended and Normal Bowel Sounds
Genito-Urinary: Wallace and Clear Urine; Negative Suprapubic Tenderness or CVA Tenderness
Extremities: Edema (BLE)
Skin: Negative Rash
Wound: Other (Abrasions on bilateral shins)
Neurological: Other (sedated)
Lab / Diagnostic Study Results
10/31/24 04:49
10/31/24 04:49
Abs Immat Gran (auto) 0.2 10^3/uL (0-0.05) H 10/30/24 23:23
Absolute Neuts (auto) 8.9 10^3/uL (1.4-6.5) H 10/30/24 23:23
Absolute Lymphs (auto) 1.9 10^3/uL (1.2-3.4) 10/30/24 23:23
Absolute Monos (auto) 1.0 10^3/uL (0.1-0.6) H 10/30/24 23:23
Absolute Basos (auto) 0.0 10^3/uL (0-0.2) 10/30/24 23:23
Immature Gran % 1.3 % (0-0.5) H 10/30/24 23:23
Neutrophils % 74.0 % (42.2-75.2) 10/30/24 23:23
Lymphocytes % 16.0 % (20.5-51.1) L 10/30/24 23:23
Monocytes % 8.5 % (1.7-9.3) 10/30/24 23:23
Eosinophils % 0.0 % (0-6) 10/30/24 23:23
Basophils % 0.2 % (0-2) 10/30/24 23:23
Lactic Acid 1.7 mmol/L (0.7-2.0) 10/31/24 04:49
Procalcitonin 1.22 ng/ml (0.0-0.25) H 10/31/24 04:49
Ur Squamous Epith Cells >30 /LPF (Few) 10/31/24 02:56
Microbiology Results
Micro:
10/31/24 08:59 Respiratory Culture - Pending
Sputum Gram Stain - Pending
10/31/24 04:00 Legionella Urinary Antigen - Final
Urine Negative for Legionella pneumophila Serogroup 1 antigen.
A negative result does not rule out the possiblity of
Legionella infection due to other serogroups or species of
Legionella. Clinical correlation is recommended.
Streptococcus pneumoniae Antigen (M - Final
Negative for Streptococcus pneumoniae antigen.
A negative result does not exclude infection with
Streptococcus pneumoniae. Clinical correlation is
recommended.
10/31/24 02:56 Urine Culture - Pending
Urine
10/31/24 02:39 Blood Culture - Pending
Blood/Venous
10/31/24 02:39 Blood Culture - Pending
Blood/Venous
10/30/24 23:23 Influenza Types A & B (YOKASTA) - Final
Nasal Swab Influenza A Positive, NAAT
10/30/24 CXR: Endotracheal tube with tip in trachea above the joseluis and nasogastric tube extending into the abdomen with tip off the image.
10/30/24 CXR: Low lung volumes with crowding of central/vascular markings. No focal consolidation to suggest pneumonia, pneumothorax or pleural effusion.
10/31/24 CT C/A/P: No evidence of pulmonary embolism or thoracic aortic dissection. Mild bibasilar subsegmental atelectasis, otherwise clear lungs. Severe coronary arterial calcification. Please correlate with symptoms of and risk factors for
coronary artery disease, with further workup as clinically appropriate. Findings suggestive of constipation. No evidence of intestinal obstruction or bowel inflammatory process. Scattered pancreatic calcifications suggestive of mild chronic
pancreatitis.
Assessment / Plan
# Severe influenza A infection.
# Acute hypoxemic respiratory failure, intubated
# Septic shock on 1 pressor
# Fever
# Leukocytosis
# DEONDRE
# Multiple antibiotic allergies
# MRSA colonized
- Agree with Oseltamivir
- Follow blood cx's
- Admission CXR and CT without pneumonia
- Repeat CXR in AM to follow for blossoming pneumonia after hydration
- Sputum cx pending.
- Continue Vancomycin and cefepime for now pending cx/imaging data.
-Trend vitals/wbc, oxygen requirement and clinical status
- Droplet precaution
# Conditions MANAGER MANAGED CARE
DM2
neuropathy
COPD
Afib hx ablation, cardioversion
CAD s/p stent
HFpEF
RA on MTX, leucovorin, folic acid, 5mg prednisone
HTN
dyslipidemia
sleep apnea on CPAP
nephrolithiasis
Chronic back pain
BPH
Sacral decubitus
class III obesity
bilateral TKR
right SONIA
Spine surgery
hernia repair
esophageal stricture dilation
BLE fracture
Care Review
Plan reviewed with: Nurse (Byron)
[2024-10-31 10:08] LABS: Glucose - Point of Care 360 mg/dl (70-99)
[2024-10-31] MEDS: LANTUS 0.2 UNITS SC (10:35)
[2024-10-31] MEDS: SUBLIMAZE 100 MCG IV (10:35)
--- NOTE | 2024-10-31 11:09 | PTOTSP ---
Received order for PT from the ED and reviewed chart. Noted pt is currently intubated and not appropriate for PT evaluation. Will hold at this time.
[2024-10-31] MEDS: LR 500 IV (11:53)
[2024-10-31] MEDS: SUBLIMAZE 50 MCG IV ×3 (12:05→22:52)
--- NOTE | 2024-10-31 12:13 | OR.RPT ---
Operative Report
Operative Report
Left IJ Central Line placement
Indication: Shock, need central access for multiple pressors
Consent obtained from: Patient's daughter as patient sedated and mechanically ventilated, unable to consent
Time-out was performed and patient was placed in Trendelenburg position. Ultrasound was used to assess patency of left IJ vein. Under sterile conditions area was cleaned with chlorhexidine and then a full body drape was placed. 3 mL of local
anesthesia with lidocaine was injected. Under real-time ultrasound guidance, long axis view, the needle was inserted and vein was punctured, once blood was aspirated, syringe was removed and guidewire was advanced which did not meet any resistance.
Subsequently needle was withdrawn and guidewire was left in place. Ultrasound was used again to confirm presence of guidewire inside the vein lumen. A small mark was placed at the skin and a dilator was advanced to about 50% of its length.
Dilator was removed and central venous catheter was advanced over guidewire and subsequently guidewire was removed. All 3 ports were capped and they were easy to flush and were withdrawing blood without any resistance. Central line was sutured to
the skin and dressing was applied.
Ultrasound of the lungs was performed and good lung sliding was obtained. Patient stayed hemodynamically stable through the procedure.
Complications: None
Blood loss: Minimal
Time spent: 35 min
--- NOTE | 2024-10-31 12:16 | W.PN.HOSP.TC ---
Addendum entered and electronically signed by Saturnino Brooke DO 11/01/24 11:41:
CDI: Hyponatremia present
Original Note:
Today's Communication/Plan
-
Continue antibiotics and Tamiflu
Continue steroid
Follow cultures
Wean pressors as able/hold antihypertensives and diuretics
Consider SAT/SBT tomorrow
Assessment / Plan
Assessment / Plan
#Ventilator dependent respiratory failure
#Influenza +/- CAP
-Presented in respiratory distress with alkalosis on labs, intubated for work of breathing
-Found to be influenza positive on admission labs, also concern for superimposed pneumonia
-Was started on Tamiflu, cefepime and vancomycin empirically; blood cultures taken prior to Abx
-Chest CT and x-ray without obvious signs of consolidation; procalcitonin returned at 1.22
-Streptococcus antigen and Legionella antigens pending
-Day 1 of MV settings CMV 12/600/40/8 with P peak 27
-ICU/pulmonology, ID following
Plan
-Wean FiO2 as possible; plan SAT/SBT starting 11/01
-Continue with Tamiflu and broad-spectrum antibiotics for now
-Trend ABGs, follow-up strep and Legionella antigen
-Continue with bronchodilators as possible
-Sedation for RASS -3 to -1
-SpO2 goal 88 to 94% with COPD history
#Septic shock
-Suspect secondary to viral +/- bacterial pneumonia
-Hypotensive despite sepsis fluid bolus in the ED, was started on vasopressors
-Blood cultures currently pending, on broad-spectrum antibiotics as above
-Holding home antihypertensive medications including SHANNAN inhibitor
-Currently requiring Levophed and vasopressin for hemodynamic support
-Multiple antibiotic allergies as listed in EMR
Plan
-Wean vasopressors for MAP >65
-Follow blood cultures and continue antibiotic
-Monitor BMP, urine output, I's/O's closely
-Trend CBC and temperature curve
#Chronic hypoxemic and hypercapnic respiratory failure
#COPD
#JOHNNIE
-Patient with BiPAP dependent respiratory failure
-Home regimen includes Advair for maintenance, DuoNebs as needed
-Anticipated will be difficult to liberate from ventilator
#HFpEF
-Last echocardiogram with preserved LVEF, dilated RV though unable to assess RV systole
-Suspect that this is predominant RV failure with group 3 pulmonary hypertension due to COPD/JOHNNIE
-Home regimen includes bumetanide 1 mg daily; not on GDMT
-Holding Bumex due to circulatory shock, appears euvolemic otherwise
#CAD s/p PCI
-Home medications include atorvastatin, metoprolol, and ACEi; not on antiplatelet but is on Xarelto
-Unknown when stent was placed or which coronary it was placed in
-Holding beta-lj due to circulatory shock, remains on Xarelto
#Paroxysmal atrial fibrillation
-Status post DCCV x 2; nonvalvular; Home regimen includes Xarelto but no antiarrhythmics
-Heart rate currently WNL and appears sinus
-Monitor on telemetry here
#Rheumatoid arthritis
-Home medications include methotrexate and prednisone 5 mg daily
-No known complications of CAD or ILD
-Holding methotrexate, continued on steroid
-No signs of flare
#T2DM with neuropathy
-Insulin-dependent; Home regimen includes Lantus 54 units HS, lispro 10 units AC, tirzepatide
-Medications also include gabapentin 900 mg 3 times daily for his neuropathy
-Upon arrival was transition to 20 units glargine twice daily with ISS due to n.p.o. status
-Continue current insulin regimen and aim for blood glucose 140-180
-Will need to escalate insulin regimen when refeeding orally versus with tube feed
#BPH
-Home regimen includes tamsulosin and finasteride
-Currently with Wallace catheter in place for strict I's and O's
-Will perform TOV prior to discharge
DVT prophylaxis: Home Xarelto
Diet: N.p.o. for now, consider tube feeds if not tolerating by 11/02
CODE STATUS: Currently full code, family to reconsider based on progression over next day or two
Discussed with floor tiling professional
Anticipated Discharge: > 48 hours
Subjective/Interval History
-
Date of Service: October 31, 2024
Seen and examined at the bedside. No acute events reported since admission. Hemodynamically adequate on ventilator and vasopressors
As of this morning on day 1 of MV with CMV 12/600/40/8 with P peak 27. Requiring hemodynamic support with Levophed at 16 mcg/min and vasopressin 0.03 mcg/min
Unable to obtain history due to intubated status.
Objective Data
-
Labs:
Laboratory Results
10/31/24 10/31/24 10/31/24
00:19 02:56 02:57
WBC
Hgb
Hct
Plt Count
HCO3 Cancelled
Sodium 131 L
Potassium 5.1 Cancelled
Chloride 96 L
Carbon Dioxide 26
BUN 28 H
Creatinine 1.4 H
Glucose 170 H
Calcium 7.8 L
Total Bilirubin
AST
ALT
Alkaline Phosphatase
10/31/24 10/31/24 10/31/24
03:01 04:49 09:14
WBC 18.4 H
Hgb 10.5 L
Hct 31.9 L
Plt Count 193
HCO3 25.9 22.6
Sodium 133 L
Potassium 5.0
Chloride 99
Carbon Dioxide 22
BUN 27 H
Creatinine 1.4 H
Glucose 226 H
Calcium 7.7 L
Total Bilirubin 1.1
AST 90 H
ALT 73 H
Alkaline Phosphatase 190 H
Vital Signs:
Vital Signs
Temp Pulse Resp BP Pulse Ox
99.7 F 95 14 114/60 94
10/31/24 11:48 10/31/24 11:10 10/31/24 11:10 10/31/24 11:00 10/31/24 11:14
I&O
10/30/24 10/31/24 11/01/24
06:59 06:59 06:59
Intake Total 702.2 / 793.9 1104.3 / 1104.3
Output Total 650 / 650 445 / 445
Balance 52.2 / 143.9 659.3 / 659.3
Review of Systems
-
Unable to obtain full review of systems at this time due to: Patient Intubation
Physical Exam
-
General: Well Developed, No Apparent Distress and Morbidly Obese
HEENT: Normocephalic, Atraumatic and Moist Mucous Membranes
Respiratory: Clear to Auscultation, Non Labored Respirations and Other (Mechanical sounds); Negative Wheezes, Rales or Rhonchi
Cardiac: Regular Rhythm and S1/S2; Negative Murmur, Rub or Gallop
GI: Soft, Nontender, Nondistended and Normal Bowel Sounds
Musculoskeletal: No Clubbing, No Cyanosis and No Edema
Skin: Warm; Negative Rash
Neuro: Sedated, Nonfocal/Grossly Intact and Other (Pupils constricted but reactive bilaterally)
Data Reviewed
-
Labs: Labs Reviewed by me and Discussed with Physician
[2024-10-31 12:51] LABS: Glucose - Point of Care 427 mg/dl (70-99)
[2024-10-31] MEDS: NOVOLOG FLEXPEN-HIGH RESISTANCE 14 UNITS SC (12:56)
--- NOTE | 2024-10-31 13:36 | CM ---
CM following re: discharge planning.
Reviewed pt's chart, met with pt and spoke to pt's daughter Tiny over the phone and she stated she has POA .
Pt is a 78 year old male admitted with primary dx of Ventilator dependent respiratory failure. Influenza +. per Rounds meeting, pt remains intubated, continue supportive care
Pt is well known to this CM from previous admission, pt went to [facility] on 08/21/24 for a short term rehab and to transition to a correction care. Pt's daughter stated she is the only child and she has Medical and Financial POA. Pt's daughter stated
that a plan is to discharge pt back to [facility] a LTC.
CM spoke to [facility] liaison and she confirmed that pt is a LTC resident, requires total care, Fanny lift, bed hold and she confirmed that pt will be accepted back to [facility] for a LTC.
Pt's clinical faxed to [facility] for a review
D/C plan: return back to [facility] for a LTC.
CM will follow with discharge plan updates as hospitalization progresses
--- NOTE | 2024-10-31 13:42 | PTCARENOTE ---
Central Line TLC placed in [facility] by fish culturist without issue. All IV tubing changed and moved to central line. 500cc LR as ordered. Assessment unchanged. Fentanyl gtt started to wean propofol.
[2024-10-31 13:47] LABS: Glucose 418 mg/dl (70-99)
--- NOTE | 2024-10-31 14:06 | CM ---
CM following re: discharge planning.
Reviewed pt's chart, met with pt's daughter Tiny.
Pt is a 78 year old male admitted with primary dx of Ventilator dependent respiratory failure. Influenza +. per Rounds meeting, pt remains intubated, continue supportive care
Pt is well known to this CM from previous admission, pt went to [facility] on 08/21/24 for a short term rehab and to transition to a exterminator helper termite care. Pt's daughter stated she is the only child and she has Medical and Financial POA. Pt's daughter stated
that a plan was to get the pt to daughter's house from [facility] next week and pt ended up at . Pt's daughter stated that a plan is to discharge pt back to [facility] to continue on skilled services.
CM spoke to [facility] liaison and she confirmed that pt is a bed hold and pt will be accepted back to [facility].
Per daughter, pt still on Medicare benefits till the end on the October and per daughter she will bring her father back home after the completion of skilled services at [facility].
Pt's clinical faxed to [facility] for a review
D/C plan: return back to [facility] to continue on skilled services.
CM will follow with discharge plan updates as hospitalization progresses
[2024-10-31 17:00] LABS: Glucose - Point of Care 412 mg/dl (70-99)
[2024-10-31] MEDS: NOVOLOG FLEXPEN SC (17:18)
[2024-10-31] MEDS: NOVOLIN R 10 UNITS IV (17:30)
[2024-10-31] MEDS: NOVOLIN R INSULIN INFUSION 100 IV ×2 (17:31→23:04)
[2024-10-31 17:33] LABS: Glucose 418 mg/dl (70-99)
[2024-10-31 18:33] LABS: Glucose - Point of Care 391 mg/dl (70-99)
[2024-10-31 19:42] LABS: Glucose - Point of Care 378 mg/dl (70-99)
--- NOTE | 2024-10-31 20:00 | PTCARENOTE ---
Assumed care of patient at 1900, nursing assessment completed and as documented. Patient drowsy but arouses to verbal and tactile stimuli, able to open eyes, FSC/SEGURA, nod yes and no. Afib on monitor rates 80-90's, weak but palpable pedal pulses
present, trace edema noted to L hand. Patient with ETT 7.5, 22 at the lip settings AC 12/600/8/40%, tolerating settings well. Lungs diminished with scattered coarse, rhonchi bilaterally, suctioned for very small amounts white sputum. OGT @ 55cm,
medication given without difficulty but unable to flush properly following. AIRLINE COUNTER AGENT notified and CXR ordered to confirm placement. Abdomen round and obese with hypoactive bowel sounds. Temperature sensing collado in place, draining clear yellow urine,
hygiene care provided. Extremities cool to touch, sacrum red and blanchable, scattered scabs noted on bilateral shins. Patient with fentanyl, propofol, vaso, levo and insulin infusing - see worklist for all titrations. Titrating infusion as per
order, see MAR. L IJ TLC patent and in place, R M/L patent and in place, 18g R AC PIV patent and in place. Repositioned for comfort, hygiene care provided. VSS.
[2024-10-31 20:40] LABS: Glucose - Point of Care 344 mg/dl (70-99)
[2024-10-31 21:39] LABS: Glucose - Point of Care 302 mg/dl (70-99)
[2024-10-31 22:48] LABS: Glucose - Point of Care 283 mg/dl (70-99)
[2024-10-31 23:46] LABS: Glucose - Point of Care 259 mg/dl (70-99)
[2024-11-01] VITALS (26 sets, daily range): BP systolic 84–144; BP diastolic 51–81; BMI 41.7
--- NOTE | 2024-11-01 | PTCARENOTE ---
No changes to physical assessment. Patient OGT remains unable to freely flush, meets resistance. Core temp at 100.5, attempted to give Tylenol solution via OGT, able to flush medicine into tube but unable to flush with water at this time -ORE CHARGER made
aware. Ice packs applied at this time. Medicated for pain, see MAR. Patient repositioned, VSS, care ongoing.
[2024-11-01] MEDS: TYLENOL ORAL SOLUTION 650 MG TUBE (00:35)
[2024-11-01 00:40] LABS: Glucose - Point of Care 230 mg/dl (70-99)
[2024-11-01 01:49] LABS: Glucose - Point of Care 172 mg/dl (70-99)
--- NOTE | 2024-11-01 02:20 | W.PN.UPDATE ---
Update Note
Progress Note Update
� Right Wrist Arrow 20 (10/29)�
Diagnosis: Septic shock
IV Line Comments: Uneventful Procedure�
Phil's test completed pre-procedure: Yes�
A-Line Comments: Sterile technique as per standard protocol, Ultrasound guided insertion�
Functioning A-line in situ: Yes�
A-line Insertion Start Time:0200��
A-line in at:��0215
[2024-11-01] MEDS: STERILE WATER FOR INJECTION 10 ML IV ×4 (02:21→20:41)
[2024-11-01] MEDS: MAXIPIME 1000 MG IV ×4 (02:21→20:41)
[2024-11-01 02:38] LABS: Glucose - Point of Care 175 mg/dl (70-99)
[2024-11-01] MEDS: OFIRMEV 100 IV (02:46)
[2024-11-01] MEDS: DIPRIVAN 100 IV ×3 (03:02→15:44)
[2024-11-01] MEDS: SUBLIMAZE 50 MCG IV ×2 (03:05→21:02)
[2024-11-01 03:47] LABS: Glucose - Point of Care 108 mg/dl (70-99)
[2024-11-01] MEDS: PITRESSIN 100 IV (04:02)
[2024-11-01 04:07] LABS: B.E. 1.1 mmol/L; HCO3 26.6 mmol/L (21-28); O2 Saturation % 97.4 % (94-98); PCO2 45 mmHg (35-48); PO2 85 mmHg (83-108); pH 7.38 (7.35-7.45)
[2024-11-01 04:10] LABS: O2 Therapy 60%
[2024-11-01 04:18] LABS: Hemoglobin 10.8 g/dL (13.0-18.0); Mean Corp Hgb Conc. 32.7 g/dL (33.0-37.0); Mean Corpuscular Hgb 30.9 pg (27.0-31.0); Mean Corpuscular Volume 94.3 fL (80.0-94.0); Mean Platelet Volume 10.1 fL (7.4-10.4); Platelet Count 189 10^3/uL (130-400); Red Cell Dist. Width 18.2 % (11.5-14.5); White Blood Cell Count 29.6 10^3/uL (4.8-10.8)
[2024-11-01 04:42] LABS: Glucose - Point of Care 74 mg/dl (70-99)
[2024-11-01 04:42] LABS: ALT (SGPT) 60 U/L (0-50); AST (SGOT) 50 U/L (17-59); Albumin 3.2 g/dl (3.5-5.0); Alkaline Phosphatase 160 U/L (38-126); Blood Urea Nitrogen 29 mg/dl (9-20); Calcium 8.5 mg/dl (8.4-10.2); Carbon Dioxide 24 mmol/L (22-30); Chloride 100 mmol/L (98-107); Estimated Creatinine Clearance 87 ml/min; Glucose 79 mg/dl (70-99); Magnesium 2.2 mg/dl (1.6-2.3); Potassium 4.5 mmol/L (3.5-5.1); Sodium 135 mmol/L (135-145); Total Bilirubin 0.7 mg/dl (0.2-1.3); Total Protein 6.5 g/dl (6.3-8.2); eGFR > 60.00
[2024-11-01 05:42] LABS: Glucose - Point of Care 88 mg/dl (70-99)
[2024-11-01] MEDS: LEVOPHED 250 IV (05:59)
[2024-11-01] MEDS: SUBLIMAZE 100 IV ×2 (05:59→20:42)
[2024-11-01 06:46] LABS: Glucose - Point of Care 115 mg/dl (70-99)
[2024-11-01] MEDS: DUONEB 3 ML INH ×4 (07:13→20:30)
--- NOTE | 2024-11-01 07:38 | PTCARENOTE ---
Assumed care of pt. approx 0700.
Per commercial coordinator start wean trial, pt. diprivan titrated off, Fentanyl left on at this time, switched to Pressure support mode per RT.
Vasopressin titrated off. Remains on 4 mcg Norepi.
Insulin gtt remains off CC glycemic protocol followed.
[2024-11-01 07:44] LABS: Glucose - Point of Care 158 mg/dl (70-99)
[2024-11-01 07:59] LABS: Absolute Neutrophils -Man Diff 28.1 10^3/uL (1.4-6.5); Anisocytosis 1+; Band Neutrophils 28 % (0-3); Hypochromasia 1+; Lymphocytes 3 % (20-51); Monocytes 2 % (2-9); Normal RBC Morphology No; Platelets Checked Yes; Polychromasia 1+; Segmented Neutrophils 67 % (42-75)
[2024-11-01 08:00] LABS: Ovalocytes 1+; Total Cells Counted 100
--- NOTE | 2024-11-01 08:01 | PHA.VAN.FU ---
Vancomycin Assessment / Plan
- Assessment
Renal Function: SCR Decreasing
WBC's are: Trending Up
Concomitant Antimicrobials: cefepime, oseltamivir
- Assessment - Therapeutic Drug Monitoring
Random Level: 7 - drawn ~25H after 2g loading dose
- Dosing Plan
Dosing by Level: Re-dose today (Vanc 1000mg x2 doses - first now then 1800)
Patient's SCR improved, BUN remains elevated
Weight may lead to overestimation of vanc clearance
Level low today but drawn just over 24H after 2g load but based on weight, load was only ~14mg/kg --> patient may have additional accumulation with repeated dosing and unclear if will require Q12H dosing interval
- Monitoring Plan
Random Level: 11/02 0600
- Follow Up
Pharmacy will continue to follow.
Vancomycin Follow UP
- -
Patient Age: 78
Patient Sex: Male
Vancomycin Day #: 2
Indication: Pulmonary/Respiratory
Requesting Provider: Dr. Crowell / Joe
Pertinent Antimicrobial Allergies:
Penicillins - hives
levofloxacin - unknown
amoxicillin/clavulanic acid - unknown
Sulfonamide antibiotics - 'little lumps like a bubble that itches' on head & face
Clarithromycin - SOB/hives
Clindamycin - hives/SOB
Height / Weight:
Height 6 ft
Actual Weight 139.3 kg
Pertinent Past Medical History: COPD, DM, BMI ~42, RA (MTX, prednisone)
- Vital Signs / Lab Results
Temp Pulse Resp BP Pulse Ox
99.5 F 87 12 97/68 98
11/01/24 07:50 11/01/24 06:00 11/01/24 06:00 11/01/24 06:00 11/01/24 07:48
Lab Results - Hematology
10/30/24 10/31/24 11/01/24
23:23 04:49 03:54
WBC 12.1 H 18.4 H 29.6 H
Band Neutrophils 28 H
Lab Results - Chemistry
10/30/24 10/31/24 10/31/24
23:23 02:56 04:49
BUN 26 H 28 H 27 H
Creatinine 1.5 H 1.4 H 1.4 H
Estimated Creat Clear 62
Albumin 3.6 2.8 L
11/01/24
03:54
BUN 29 H
Creatinine 1.0
Estimated Creat Clear 87
Albumin 3.2 L
10/30/24 10/31/24
23:23 04:49
Lactic Acid 2.1 H 1.7
Microbiology Results
10/31/24 02:39 Blood Culture - Preliminary
Blood/Venous No Growth in 24 hours- Final report to follow
10/31/24 02:39 Blood Culture - Preliminary
Blood/Venous No Growth in 24 hours- Final report to follow
10/31/24 08:59 Gram Stain - Preliminary
Sputum
10/31/24 04:00 Legionella Urinary Antigen - Final
Urine Negative for Legionella pneumophila Serogroup 1 antigen.
A negative result does not rule out the possiblity of
Legionella infection due to other serogroups or species of
Legionella. Clinical correlation is recommended.
Streptococcus pneumoniae Antigen (M - Final
Negative for Streptococcus pneumoniae antigen.
A negative result does not exclude infection with
Streptococcus pneumoniae. Clinical correlation is
recommended.
10/30/24 23:23 Influenza Types A & B ([facility]) - Final
Nasal Swab Influenza A Positive, NAAT
Therapeutic Drug Monitoring
Random Vancomycin 7.0 ug/ml 11/01/24 03:54
--- NOTE | 2024-11-01 08:11 | PTCARENOTE ---
Pt. tachypneic, sustained tachycardia in 140-150s, RT called bedside, placed back on CMV.
[2024-11-01] MEDS: PROTONIX IV 40 MG IV (08:12)
[2024-11-01] MEDS: TAMIFLU 75 MG PO (08:13)
[2024-11-01] MEDS: SOLU-MEDROL PF 20 MG IV (08:13)
[2024-11-01] MEDS: MIRALAX 17 GRAMS TUBE (08:13)
[2024-11-01] MEDS: FLOMAX 0.4 MG TUBE (08:13)
[2024-11-01] MEDS: NSS (PRESERVATIVE FREE) 10 ML IV (08:13)
[2024-11-01] MEDS: PROSCAR 5 MG TUBE (08:13)
[2024-11-01] MEDS: XARELTO 20 MG TUBE (08:14)
[2024-11-01] MEDS: NOVOLOG FLEXPEN SC ×3 (08:14→15:48)
[2024-11-01] MEDS: LAC HYDRIN, AM LACTIN LOTION 1 APPLIC TOPICAL (08:14)
--- NOTE | 2024-11-01 08:18 | PN.DE.MGMTRT ---
Insulin Management
- -
11/01/2024: Diabetes Management Consult
71 year old male admitted with Acute respiratory failure due to Influenza A and CAP. Currently ventilator dependent.
PMH: Asthma/COPD, JOHNNIE, Smoking, 1/2 PPD, HTN, Permanent A-fib/A-flutter, CAD s/p PCI, HLD, Chronic back pain, GERD, Dysphagia, BPH, Nephrolithiasis, Gout
Rheumatoid Arthritis, Occasional ETOH use, T2DM with Neuropathy and Morbid Obesity.
Pt is intubated, eyes opne but not responding to questions or commands, unable to provide hx, information obtained from chart review.
Of note, pt was taking Glargine 54 units HS and Humalog 10 units AC. Recent A1C 8.1% o 09/11/24, Cr 1.0, eGFR >60
Currently on Critical care glycemic protocol, glucose range 74 to 190, requiring 3-12 units of insulin/hr. Glucose target 140 to 180.
Will make no changes to current regimen. Will follow closely and assess for readiness to transition off the drip
Diabetes History
- -
Type of Diabetes: 2 requiring insulin
Pre-Admission Diabetes Regimen
11/01/24
03:54
Creatinine 1.0
Insulin Pump Settings
IP Diabetes Regimen
10/31/24 10/31/24 10/31/24
08:53 12:40 13:22
Glucose 418 H
POC Glucose 360 H 427 H
10/31/24 10/31/24 10/31/24
16:48 16:52 18:19
Glucose 418 H
POC Glucose 412 H 391 H
10/31/24 10/31/24 10/31/24
19:31 20:28 21:28
Glucose
POC Glucose 378 H 344 H 302 H
10/31/24 10/31/24 11/01/24
22:37 23:35 00:28
Glucose
POC Glucose 283 H 259 H 230 H
11/01/24 11/01/24 11/01/24
01:38 02:27 03:36
Glucose
POC Glucose 172 H 175 H 108 H
11/01/24 11/01/24 11/01/24
03:54 04:31 05:30
Glucose 79
POC Glucose 74 88
11/01/24 11/01/24
06:35 07:32
Glucose
POC Glucose 115 H 158 H
Patient Education
[2024-11-01] MEDS: VANCOCIN 200 IV ×2 (08:27→17:15)
[2024-11-01 08:47] LABS: Glucose - Point of Care 190 mg/dl (70-99)
[2024-11-01] MEDS: NOVOLIN R INSULIN INFUSION 100 IV ×3 (09:05→23:35)
[2024-11-01 09:52] LABS: Glucose - Point of Care 220 mg/dl (70-99)
--- NOTE | 2024-11-01 10:22 | PTCARENOTE ---
OG tube removed due to occlusion that did not resolve with flushing. Per electronics maintenance technician hold off on new drainage tube w. plans to extubate in am. If extubation fails, will insert new tube in am.
--- NOTE | 2024-11-01 10:24 | PTCARENOTE ---
ROUND NOTES
Pt. failed SBT due to tachycardia sustained in 140-150s.
AFIB at baseline, not currently on antiarrhythmics.
Plan as follows,
-Start Amiodarone w. bolus.
-switch norepi to Phenylephrine in attempts to control HR.
-trial SBT in AM/This afternoon.
[2024-11-01 10:44] LABS: Glucose - Point of Care 225 mg/dl (70-99)
--- NOTE | 2024-11-01 11:12 | W.PN.HOSP.TC ---
Today's Communication/Plan
-
Continue Tamiflu and antibiotics
Wean vasopressors as able
Continue insulin drip
Plan for SAT/SBT tomorrow
Monitor urine output
GOC
Assessment / Plan
Assessment / Plan
#Ventilator dependent respiratory failure
#Influenza +/- CAP
-Presented in respiratory distress with alkalosis on labs, intubated for work of breathing
-Found to be influenza positive on admission labs, also concern for superimposed pneumonia
-Was started on Tamiflu, cefepime and vancomycin empirically; blood cultures taken prior to Abx
-Chest CT and x-ray without obvious signs of consolidation; procalcitonin returned at 1.22
-Streptococcus antigen and Legionella antigens pending
-Day 1 of MV settings CMV 12/600/40/8 with P peak 27
-ICU/pulmonology, ID following
Plan
-Wean FiO2 as possible; plan SAT/SBT starting 11/01
-Continue with Tamiflu and broad-spectrum antibiotics for now
-Trend ABGs, follow-up strep and Legionella antigen
-Continue with bronchodilators as possible
-Sedation for RASS -3 to -1
-SpO2 goal 88 to 94% with COPD history
#Septic shock
-Suspect secondary to viral +/- bacterial pneumonia
-Hypotensive despite sepsis fluid bolus in the ED, was started on vasopressors
-Blood cultures currently pending, on broad-spectrum antibiotics as above
-Holding home antihypertensive medications including SHANNAN inhibitor
-Currently requiring Levophed and vasopressin for hemodynamic support
-Multiple antibiotic allergies as listed in EMR
Plan
-Wean vasopressors for MAP >65
-Follow blood cultures and continue antibiotic
-Monitor BMP, urine output, I's/O's closely
-Trend CBC and temperature curve
#Chronic hypoxemic and hypercapnic respiratory failure
#COPD
#JOHNNIE
-Patient with BiPAP dependent respiratory failure
-Home regimen includes Advair for maintenance, DuoNebs as needed
-Anticipated will be difficult to liberate from ventilator
#HFpEF
-Last echocardiogram with preserved LVEF, dilated RV though unable to assess RV systole
-Suspect that this is predominant RV failure with group 3 pulmonary hypertension due to COPD/JOHNNIE
-Home regimen includes bumetanide 1 mg daily; not on GDMT
-Holding Bumex due to circulatory shock, appears euvolemic otherwise
#CAD s/p PCI
-Home medications include atorvastatin, metoprolol, and ACEi; not on antiplatelet but is on Xarelto
-Unknown when stent was placed or which coronary it was placed in
-Holding beta-lj due to circulatory shock, remains on Xarelto
#Paroxysmal atrial fibrillation
-Status post DCCV x 2; nonvalvular; Home regimen includes Xarelto but no antiarrhythmics
-Heart rate currently WNL and appears sinus
-Monitor on telemetry here
#Rheumatoid arthritis
-Home medications include methotrexate and prednisone 5 mg daily
-No known complications of CAD or ILD
-Holding methotrexate, continued on steroid
-No signs of flare
#T2DM with neuropathy
-Insulin-dependent; Home regimen includes Lantus 54 units HS, lispro 10 units AC, tirzepatide
-Medications also include gabapentin 900 mg 3 times daily for his neuropathy
-Upon arrival was transition to 20 units glargine twice daily with ISS due to n.p.o. status
-Was started on insulin drip as sugars worsened with steroid; BG goal 140-180
#BPH
-Home regimen includes tamsulosin and finasteride
-Currently with Wallace catheter in place for strict I's and O's
-Will perform TOV prior to discharge
DVT prophylaxis: Home Xarelto
GI prophylaxis: IV pantoprazole
Diet: N.p.o. for now, consider tube feeds if not tolerating by 11/02
CODE STATUS: Currently full code, family to reconsider based on progression over next day or two
Discussed with woodworking machine operator
Anticipated Discharge: > 48 hours
Subjective/Interval History
-
Date of Service: November 01, 2024
Seen and examined at the bedside. No acute events reported. Stable on mechanical ventilator and vasopressors
Did well with spontaneous awakening trial this morning however developed tachypnea and tachycardia on SBT, was restarted on sedation and placed back on to volume support.
Currently remains on MV, day #2 CMV 12/600/40/8 with P peak 23. Remains on Levophed, vasopressin has since been weaned. Urine output decreasing but not within oliguric range.
ROS limited from intubated status.
Objective Data
-
Labs:
Laboratory Results
11/01/24
03:54
WBC 29.6 H
Hgb 10.8 L
Hct 33.0 L
Plt Count 189
HCO3 26.6
Sodium 135
Potassium 4.5
Chloride 100
Carbon Dioxide 24
BUN 29 H
Creatinine 1.0
Glucose 79
Calcium 8.5
Total Bilirubin 0.7
AST 50
ALT 60 H
Alkaline Phosphatase 160 H
Vital Signs:
Vital Signs
Temp Pulse Resp BP Pulse Ox
99.5 F 121 12 131/67 93
11/01/24 07:50 11/01/24 11:00 11/01/24 11:00 11/01/24 08:00 11/01/24 11:00
I&O
10/31/24 11/01/24 11/02/24
06:59 06:59 06:59
Intake Total 702.2 / 793.9 2173.5 / 2209.2 258.3 / 258.3
Output Total 650 / 650 1635 / 1670 185 / 185
Balance 52.2 / 143.9 538.5 / 539.2 73.3 / 73.3
Review of Systems
-
Unable to obtain full review of systems at this time due to: Patient Intubation
Physical Exam
-
General: Well Developed, No Apparent Distress and Morbidly Obese
HEENT: Normocephalic, Atraumatic, Moist Mucous Membranes and PERRLA
Respiratory: Clear to Auscultation and Non Labored Respirations; Negative Wheezes or Rhonchi
Cardiac: Regular Rhythm, S1/S2 and Tachycardic; Negative Murmur, Rub or Gallop
GI: Soft, Nontender, Nondistended and Normal Bowel Sounds
Genito-urinary: Clear Urine and Wallace
Musculoskeletal: No Clubbing, No Cyanosis and No Edema
Skin: Warm, Dry and Normal Turgor; Negative Rash
Neuro: Sedated, Nonfocal/Grossly Intact and Other (Response to external stimuli)
Data Reviewed
-
Labs: Labs Reviewed by me, Discussed with Physician ([employer]) and Discussed with Patient
--- NOTE | 2024-11-01 11:18 | W.PN.ID1 ---
Date of Service
Date of Service: November 01, 2024
Today's Communication
Continue current antibiotics.
Assessment / Plan
# Severe influenza A infection.
# Acute hypoxemic respiratory failure, intubated
# Septic shock on pressor support
# Fever - resolved
# Leukocytosis - trended up, partially due to steroid
# DEONDRE - resolved
# Afib with RVR
# Multiple antibiotic allergies
# MRSA colonized
- Continue Oseltamivir
- blood cx's neg to date
- Admission CXR and CT without pneumonia
- Repeat CXR to follow for blossoming pneumonia after hydration
- Sputum cx pending; gram stain moderate GPC
- Continue Vancomycin and cefepime for now pending cx/imaging data.
-Trend vitals/wbc, oxygen requirement and clinical status
- Continue Droplet precaution
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
DM2
neuropathy
COPD
Afib hx ablation, cardioversion
CAD s/p stent
HFpEF
RA on MTX, leucovorin, folic acid, 5mg prednisone
HTN
dyslipidemia
sleep apnea on CPAP
nephrolithiasis
Chronic back pain
BPH
Sacral decubitus
class III obesity
bilateral TKR
right SONIA
Spine surgery
hernia repair
esophageal stricture dilation
BLE fracture
Chief Complaint
-: Clinical Sepsis and Other (Flu)
Subjective / Review of Systems
Remains on vent
Vital Signs / Physical Exam
Vital Signs
Vital Signs
Temp Pulse Resp BP Pulse Ox
99.5 F 121 12 131/67 93
11/01/24 07:50 11/01/24 11:00 11/01/24 11:00 11/01/24 08:00 11/01/24 11:00
Physical Exam
Constitutional: Acutely Ill and Obese
Eyes: Sclera Anicteric
Cardiovascular: Irregular Rate, S1/S2 and Other (tachycardic)
Pulmonary: Other (Anterior chest clear)
Gastrointestinal: Soft, Non Tender, Non Distended and Normal Bowel Sounds
Genito-Urinary: Wallace and Clear Urine
Extremities: Edema and Other (Extremities cool)
Objective Data
Lab Data
Lab Results
11/01/24 03:54
11/01/24 03:54
APTT 49.4 Sec (23.4-35.0) H 10/30/24 23:27
Estimated Creat Clear 87 ml/min 11/01/24 03:54
Lactic Acid 1.7 mmol/L (0.7-2.0) 10/31/24 04:49
Total Bilirubin 0.7 mg/dl (0.2-1.3) 11/01/24 03:54
AST 50 U/L (17-59) 11/01/24 03:54
ALT 60 U/L (0-50) H 11/01/24 03:54
Alkaline Phosphatase 160 U/L (38-126) H 11/01/24 03:54
Most recent labs reviewed.
Micro Results:
10/31/24 02:39 Blood Culture - Preliminary
Blood/Venous No Growth in 24 hours- Final report to follow
10/31/24 02:39 Blood Culture - Preliminary
Blood/Venous No Growth in 24 hours- Final report to follow
10/31/24 08:59 Respiratory Culture - Pending
Sputum Gram Stain - Preliminary
10/31/24 04:00 Legionella Urinary Antigen - Final
Urine Negative for Legionella pneumophila Serogroup 1 antigen.
A negative result does not rule out the possiblity of
Legionella infection due to other serogroups or species of
Legionella. Clinical correlation is recommended.
Streptococcus pneumoniae Antigen (M - Final
Negative for Streptococcus pneumoniae antigen.
A negative result does not exclude infection with
Streptococcus pneumoniae. Clinical correlation is
recommended.
10/31/24 02:56 Urine Culture - Pending
Urine
10/30/24 23:23 Influenza Types A & B ([facility]) - Final
Nasal Swab Influenza A Positive, NAAT
10/30/24 CXR: Endotracheal tube with tip in trachea above the joseluis and nasogastric tube extending into the abdomen with tip off the image.
10/30/24 CXR: Low lung volumes with crowding of central/vascular markings. No focal consolidation to suggest pneumonia, pneumothorax or pleural effusion.
10/31/24 CT C/A/P: No evidence of pulmonary embolism or thoracic aortic dissection. Mild bibasilar subsegmental atelectasis, otherwise clear lungs. Severe coronary arterial calcification. Please correlate with symptoms of and risk factors for
coronary artery disease, with further workup as clinically appropriate. Findings suggestive of constipation. No evidence of intestinal obstruction or bowel inflammatory process. Scattered pancreatic calcifications suggestive of mild chronic
pancreatitis.
--- NOTE | 2024-11-01 11:36 | PN.CDI ---
CDI
- -
CDI:
Physician Documentation Request
Admit Date: 10/31/24 03:38
Dear Doctor Edwardo,
Please review the following and provide your response in the progress notes.
Clinical Indicators:
Pt admitted with septic shcok 2/ Influenza A/Bacterial PNA / Acute Hypoxic respiratory Failure
Sodium labs are as below/Pt did get IVFs
10/30/24 10/31/24 10/31/24
23:23 02:56 04:49
Sodium 132 L 131 L 133 L
Based on the above, could you clarify in the progress notes, the appropriate diagnosis, if significant, that supports the above abnormalities and additional evaluation, monitoring and/or treatment rendered:
Hyponatremia
Abnormal lab value only
Other ( please specify)
Use of terms such as suspected, likely, concern for, or probable (associated with a specific diagnosis that is being evaluated, monitored, or treated as if it exists) are acceptable and can be coded in the inpatient setting, when documented at the
time of discharge.
Thank you,
Cherelle Deras RN
CDI Specialist
[place] [facility]
Please use your independent medical judgment in providing your response.
--- NOTE | 2024-11-01 11:42 | PN.CDI ---
CDI
- -
CDI:
Physician Documentation Request
Admit Date: 10/31/24 03:38
Dear Doctor Edwardo,
Please review the following and provide your response in the progress notes.
Clinical Indicators:
Pt admitted with septic shock 2/2 Influenza A/Bacterial PNA / Acute Hypoxic respiratory Failure
Sodium labs are as below/Pt did get IVFs
10/30/24 10/31/24 10/31/24
23:23 02:56 04:49
Sodium 132 L 131 L 133 L
Based on the above, could you clarify in the progress notes, the appropriate diagnosis, if significant, that supports the above abnormalities and additional evaluation, monitoring and/or treatment rendered:
Hyponatremia
Abnormal lab value only
Other ( please specify)
Use of terms such as suspected, likely, concern for, or probable (associated with a specific diagnosis that is being evaluated, monitored, or treated as if it exists) are acceptable and can be coded in the inpatient setting, when documented at the
time of discharge.
Thank you,
Cherelle Deras RN
CDI Specialist
[place] [facility]
Please use your independent medical judgment in providing your response.
[2024-11-01 11:43] LABS: Glucose - Point of Care 219 mg/dl (70-99)
[2024-11-01] MEDS: CORDARONE 103 MG IV (12:26)
[2024-11-01 12:39] LABS: Glucose - Point of Care 193 mg/dl (70-99)
--- NOTE | 2024-11-01 12:39 | PTCARENOTE ---
Pt. started on AMIO gtt w. bolus given.
Phenylephrine turned on for decreasing map goals.
No further change in pt. assessment.
[2024-11-01] MEDS: CORDARONE 518 MG IV (12:43)
[2024-11-01 13:40] LABS: Glucose - Point of Care 230 mg/dl (70-99)
--- NOTE | 2024-11-01 14:35 | CM ---
CM following re: discharge planning.
Discussed in rounds, reviewed pt's chart.
Per rounds meeting, pt remains intubated, continue supportive care.
Per daughter a plan is for pt to return back to [facility] to continue on skilled services when medically stable. At the same time, pt's daughter expressed a little motivation that her father will get better. Emotional support offered and provided.
D/C plan: Uncertain at this time and will depend on pt's progress. The optimal goal is to return back to [facility] to continue on skilled services when medically stable.
CM will follow with discharge plan updates as hospitalization progresses
[2024-11-01 14:41] LABS: Glucose - Point of Care 217 mg/dl (70-99)
--- NOTE | 2024-11-01 14:53 | PTCARENOTE ---
MAPs decreasing, notified oil extractor, order to drop amio down to 0.5 now.
Amio titrated, phenylephrine remains on.
Remains rate controlled afib.
[2024-11-01] MEDS: NEO-SYNEPHRINE 250 IV ×2 (15:44→23:33)
[2024-11-01 15:45] LABS: Glucose - Point of Care 186 mg/dl (70-99)
[2024-11-01 16:44] LABS: Glucose - Point of Care 181 mg/dl (70-99)
--- NOTE | 2024-11-01 17:14 | W.PN.INTV ---
Today's Communication / Plan
Recommendations
- Amiodarone bolus followed by infusion to control rapid ventricular rate
-Reattempt SAT, SBT in a.m.
-Start phenylephrine and wean Levophed to help with rapid ventricular rate
-Chest x-ray and ABG in a.m.
-Monitor magnesium and K
Assessment
-
#1. Acute hypoxic respiratory failure in the setting of influenza A infection
-Patient's respiratory failure is multifactorial. This is a morbidly obese gentleman was supposed to be on nightly CPAP for JOHNNIE who in addition has heart failure with preserved ejection fraction and recently likely contracted influenza A which led
to further respiratory decompensation. He failed BiPAP in the emergency room
-Continue mechanical ventilation with current setting of volume 600, PEEP decreased to 6, respiratory rate 12, 40% FiO2. ABG today, 7.38, 45, 85.
-Continue broad-spectrum antibiotics in view of shock
-Continue Tamiflu
-Discontinued twice daily Solu-Medrol due to influenza A infection, and start stress dose steroid as patient chronically takes 5 of prednisone, continue Solu-Medrol 20 daily
-ABG and chest x-ray in a.m.
-Failed SBT with resultant atrial fibrillation and rapid ventricular rate on 11/01
#2. Shock, suspect septic shock.
-Follow-up on blood cultures
-Start phenylephrine, wean Levophed in view of rapid ventricular rate. Continue vasopressin
-Status post IV fluid resuscitation
-Procalcitonin elevated, serial lactate improved
-Strep noted on sputum cultures
-Infectious disease service on case
#3. Diabetes mellitus
-Continue insulin as ordered
#4. History of COPD, morbid obesity and questionable JOHNNIE
-Currently patient is not wheezing, no auto PEEP noted
-Presentation not suggestive of COPD exacerbation
-When ready for extubation, will extubate to BiPAP
#5. History of coronary artery disease status post PCI
-Troponin downtrending
#6. Heart failure with preserved ejection fraction
-Current presentation does not appear to be related to volume overload rather patient looks hypovolemic
-S/p 2 L bolus in the emergency room, followed by another 500 mL bolus this morning
-Hold diuretics
-Chest x-ray in a.m. to evaluate fluid status
-Monitor intake and output closely
#7. Paroxysmal atrial fibrillation, rate is normal
-Start amiodarone
-Start phenylephrine and wean Levophed, continue vasopressin
-Continue Xarelto for anticoagulation
#8. History of rheumatoid arthritis with chronic prednisone use
-Continue Solu-Medrol 20 daily while patient is critically ill and dose can be decreased back to home dose of prednisone once patient recovers from shock
-Will attempt SAT/SBT again in a.m.
Critical Care time 70 mins -- The patient is admitted for acute critical illness for the treatment of vital organ failure and/or prevention of further life-threatening conditions. Total care includes time spent in review of history, physical exam,
medications, hemodynamic/ventilator parameters, laboratory data, imaging and discussion with house staff, pharmacy, respiratory therapy, rental car porter, and nursing. This time includes the time spent placing central line and left internal jugular vein.
Subjective Dataa
Subjective Data
Date of Service:
Date of Service: November 01, 2024
Subjective:
Patient intubated, sedated and mechanically ventilated. Failed SBT today due to tachycardia.
Review of Systems
General: Unobtainable - Sedation
Objective Data
Data Reviewed
Vital Signs / I&O / Oxygen:
Vital Signs
Temp Pulse Resp BP Pulse Ox
98.1 F 97 12 96/62 97
11/01/24 15:45 11/01/24 16:45 11/01/24 16:45 11/01/24 16:00 11/01/24 16:45
Intake and Output
10/31/24 11/01/24 11/02/24
06:59 06:59 06:59
Intake Total 702.2 / 793.9 2173.5 / 2209.2 722.8 / 722.8
Output Total 650 / 650 1635 / 1670 545 / 545
Balance 52.2 / 143.9 538.5 / 539.2 177.8 / 177.8
SaO2 [A/C] 96
SaO2 97
Physical Exam
General: Comfortable
HEENT: Normocephalic
Cardiovascular: S1-S2
Respiratory: Clear
GI: Soft
Neurology: Other (Currently sedated)
Skin: Warm
Labs/Micro/Reports
Lab Data
11/01/24 03:54
11/01/24 03:54
Laboratory Results
11/01/24
03:54
pH 7.38
pCO2 45
pO2 85
HCO3 26.6
O2 Delivery Level 60%
Microbiology
10/31/24 08:59 Sputum Respiratory Culture - Preliminary
Streptococcus pyogenes
10/31/24 08:59 Sputum Gram Stain - Preliminary
10/31/24 02:56 Urine Urine Culture - Final
NO GROWTH
10/31/24 02:39 Blood/Venous Blood Culture - Preliminary
No Growth in 24 hours- Final report to follow
10/31/24 02:39 Blood/Venous Blood Culture - Preliminary
No Growth in 24 hours- Final report to follow
10/31/24 04:00 Urine Legionella Urinary Antigen - Final
Negative for Legionella pneumophila Serogroup 1 antigen.
A negative result does not rule out the possiblity of
Legionella infection due to other serogroups or species of
Legionella. Clinical correlation is recommended.
10/31/24 04:00 Urine Streptococcus pneumoniae Antigen (M - Final
Negative for Streptococcus pneumoniae antigen.
A negative result does not exclude infection with
Streptococcus pneumoniae. Clinical correlation is
recommended.
10/30/24 23:23 Nasal Swab Influenza Types A & B ([facility]ASTA) - Final
Influenza A Positive, NAAT
[2024-11-01 17:28] LABS: Glucose - Point of Care 203 mg/dl (70-99)
[2024-11-01 18:40] LABS: Glucose - Point of Care 172 mg/dl (70-99)
[2024-11-01] MEDS: TAMIFLU PO (19:29)
[2024-11-01 19:59] LABS: Glucose - Point of Care 153 mg/dl (70-99)
--- NOTE | 2024-11-01 21:30 | PTCARENOTE ---
Assumed care of pt at 1900. Pt intubated, #7.5 ETT/25cm at [facility], AC 12/600/40/8. Received pt on Phenylephrine at 160mcg/min, Amiodarone at 0.5mg/min, Propofol at 10mcg/kg/min, Fentanyl at 7.5mcg/hr, and insulin drip (titrated per critical care
glycemic protocol), see individual med titration flowsheets for details on med titrations throughout shift. Pt opens eyes spontaneously, has not followed commands, but has been able to move all extremities. See nursing shift assessment flowsheet for
full physical assessment details. Pt has been AFib on monitor with BBB, HR 70s-110s. SpO2 98-99%.
[2024-11-01 22:23] LABS: Glucose - Point of Care 116 mg/dl (70-99)
[2024-11-02] VITALS: BP 86/61
[2024-11-02 00:28] LABS: Glucose - Point of Care 78 mg/dl (70-99)
--- NOTE | 2024-11-02 01:05 | PTCARENOTE ---
Midnight assessment unchanged. Remains on same vent settings, same infusions running except insulin was turned off around 0030 per protocol. CHG cloth bath done, linens changed. Remains AFib on monitor, rate in 80s.
[2024-11-02 01:36] LABS: Glucose - Point of Care 80 mg/dl (70-99)
[2024-11-02] MEDS: DIPRIVAN 100 IV ×6 (01:59→21:15)
[2024-11-02] MEDS: STERILE WATER FOR INJECTION 10 ML IV ×2 (01:59→07:40)
[2024-11-02] MEDS: MAXIPIME 1000 MG IV ×2 (01:59→07:40)
[2024-11-02] MEDS: SUBLIMAZE 50 MCG IV ×4 (02:18→05:50)
[2024-11-02 02:48] LABS: Glucose - Point of Care 89 mg/dl (70-99)
[2024-11-02 03:49] LABS: Glucose - Point of Care 98 mg/dl (70-99)
[2024-11-02 03:54] VITALS: BMI 42.1
[2024-11-02 04:14] LABS: B.E. -0.7 mmol/L; HCO3 24.9 mmol/L (21-28); O2 Saturation % 97.7 % (94-98); PCO2 44 mmHg (35-48); PO2 100 mmHg (83-108); pH 7.36 (7.35-7.45)
[2024-11-02 04:18] LABS: % Basophils 0.3 % (0-2); % Immature Granulocytes 1.1 % (0-0.5); % Lymphocytes 3.4 % (20.5-51.1); % Monocytes 3.2 % (1.7-9.3); Absolute Basophils 0.1 10^3/uL (0-0.2); Absolute Immature Granulocytes 0.3 10^3/uL (0-0.05); Absolute Neutrophils 27.2 10^3/uL (1.4-6.5); Hemoglobin 10.5 g/dL (13.0-18.0); Mean Corp Hgb Conc. 32.8 g/dL (33.0-37.0); Mean Corpuscular Hgb 31.2 pg (27.0-31.0); Mean Platelet Volume 10.8 fL (7.4-10.4); Nucleated Red Blood Cells % 0 % (-); Platelet Count 184 10^3/uL (130-400); Red Blood Cell Count 3.37 10^6/uL (4.70-6.10); Red Cell Dist. Width 18.4 % (11.5-14.5); White Blood Cell Count 29.6 10^3/uL (4.8-10.8)
[2024-11-02 04:22] LABS: O2 Therapy 40%
[2024-11-02 04:42] LABS: Glucose - Point of Care 108 mg/dl (70-99)
[2024-11-02 04:42] LABS: Vancomycin Random 12.2 ug/ml
[2024-11-02 04:46] LABS: Blood Urea Nitrogen 29 mg/dl (9-20); Calcium 8.5 mg/dl (8.4-10.2); Carbon Dioxide 23 mmol/L (22-30); Chloride 100 mmol/L (98-107); Estimated Creatinine Clearance 97 ml/min; Glucose 125 mg/dl (70-99); Magnesium 2.3 mg/dl (1.6-2.3); Potassium 4.9 mmol/L (3.5-5.1); Sodium 132 mmol/L (135-145); eGFR > 60.00
--- NOTE | 2024-11-02 05:13 | PTCARENOTE ---
Assessment unchanged. Remains on Rodolfo, Amio, Fentanyl, and Propofol, remains off insulin drip per protocol. Fentanyl and Propofol titrated up throughout the shift, see med titration flowsheets. Pt has had several periods this shift where he started
stacking his breaths and was dyssynchronous with the vent. x3 bolus doses of Fentanyl given as well, see EMAR. Rodolfo able to be weaned down. Remains AFib 90s on monitor.
[2024-11-02] MEDS: SUBLIMAZE 100 IV ×2 (06:05→16:38)
--- NOTE | 2024-11-02 06:15 | PTCARENOTE ---
Turned pt around 0530 to replace sacral foam dressing. Immediately afterwards pt became dyssynchronous with the vent, worse than other times this shift. Pt tachypneic with RR in 40s-50s, constant breath stacking, peak pressures in 50s, not pulling
volumes. Bolus dose of Fentanyl given and both Fentanyl and Propofol drips increased with no effect. Discussed with Eduarda MCCAULEY and an additional bolus dose of Fentanyl ordered/administered (see EMAR). Ultimately needed to go up to 150mcg/hr
of Fentanyl and 50mcg/kg/min of Propofol with the 2 bolus doses of Fentanyl for pt to become synchronous with vent (episode lasted approx 25-30 minutes). This also necessitated the increase of the Phenylephrine, which had been down to 60mcg/min--now
at 140mcg/min. Attempting to wean sedation again as pt tolerates.
[2024-11-02 06:29] LABS: Glucose - Point of Care 132 mg/dl (70-99)
--- NOTE | 2024-11-02 07:13 | W.PN.INTV ---
Today's Communication / Plan
Recommendations
-ABG and chest x-ray in a.m.
-Reattempt SAT and SBT, possible extubation to BiPAP if tolerates
-If fails SBT, will resume tube feeding
Assessment
-
78-year-old gentleman with known history of JOHNNIE, noncompliant with nightly CPAP, morbid obesity, heart failure with preserved ejection fraction, developed respiratory distress at [facility]-way facility. Reportedly his roommate also had
respiratory symptoms. Patient tested positive for influenza A. In the emergency room he was hypoxic and hypotensive and was initially tried on BiPAP with suboptimal response. Patient was subsequently intubated and admitted to ICU. Patient
required pressor support for hypotension and was noted to be hypovolemic on initial admission and responded well to IV fluids. He has failed SBT on 306 due to rapid ventricular rate.
11/01:
Fluid balance, +319
Hemoglobin stable at 10.5, WBC elevated at 29.6 with 92% neutrophils
Potassium 4.9, magnesium 2.3, creatinine stable at 0.9, sodium mildly low at 132
Chest x-ray reviewed, some multifocal fluffy infiltrates noted, question related to influenza more pronounced on the right side
Sputum culture positive for strep pyogenes otherwise blood cultures have stayed negative
Blood sugar well-controlled 108 232 this morning
ABG, 11/02, 7.36, 44, 100 on FiO2 40% and a PEEP of 6, tidal volume 400
Currently patient off propofol for SBT, continue fentanyl infusion
Other drips, insulin infusion, amiodarone infusion and phenylephrine at about 80
#1. Acute hypoxic respiratory failure in the setting of influenza A infection with superimposed right sided multifocal pneumonia
-Patient's respiratory failure is multifactorial. This is a morbidly obese gentleman was supposed to be on nightly CPAP for JOHNNIE who in addition has heart failure with preserved ejection fraction and recently likely contracted influenza A which led
to further respiratory decompensation. He failed BiPAP in the emergency room
-Strep pyogenes noted in the sputum in addition to influenza A
-SAT SBT this morning
-Antibiotics per infectious disease service
-Continue Tamiflu
-Discontinued twice daily Solu-Medrol due to influenza A infection, and start stress dose steroid as patient chronically takes 5 of prednisone, continue Solu-Medrol 20 daily
-ABG and chest x-ray in a.m.
-Failed SBT with resultant atrial fibrillation and rapid ventricular rate on 11/01
#2. Shock, suspect septic shock.
-Follow-up on blood cultures
-Continue phenylephrine, wean Levophed in view of rapid ventricular rate. Continue vasopressin
-Status post IV fluid resuscitation
-Procalcitonin elevated, serial lactate improved
-Strep noted on sputum cultures
-Infectious disease service on case
#3. Diabetes mellitus
-Continue insulin infusion as ordered
-If fails SAT SBT today, we will place a new feeding tube and start enteral feeding considering prior tube was clogged
#4. History of COPD, morbid obesity and questionable JOHNNIE
-Currently patient is not wheezing, no auto PEEP noted
-Presentation not suggestive of COPD exacerbation
-When ready for extubation, will extubate to BiPAP
#5. History of coronary artery disease status post PCI
-Troponin downtrending
#6. Heart failure with preserved ejection fraction
-Current presentation does not appear to be related to volume overload rather patient looks hypovolemic
-S/p 2 L bolus in the emergency room, followed by another 500 mL bolus after arrival to ICU
-Hold diuretics
-Chest x-ray in a.m. to evaluate fluid status
-Monitor intake and output closely
#7. Paroxysmal atrial fibrillation, rate is normal
-Continue amiodarone
-Continue phenylephrine and weaned Levophed, continue vasopressin
-Continue Xarelto for anticoagulation
#8. History of rheumatoid arthritis with chronic prednisone use
-Continue Solu-Medrol 20 daily while patient is critically ill and dose can be decreased back to home dose of prednisone once patient recovers from shock
-Will attempt SAT/SBT again in a.m.
Critical Care time 45 mins -- The patient is admitted for acute critical illness for the treatment of vital organ failure and/or prevention of further life-threatening conditions. Total care includes time spent in review of history, physical exam,
medications, hemodynamic/ventilator parameters, laboratory data, imaging and discussion with house staff, pharmacy, respiratory therapy, obstetrical tech, and nursing. This time includes the time spent placing central line and left internal jugular vein.
Subjective Dataa
Subjective Data
Date of Service:
Date of Service: November 02, 2024
Subjective:
Patient currently intubated and mechanically ventilated. More awake tolerating SAT, initiating SBT pressure support of 8 x 5
Review of Systems
General: Unobtainable - Sedation
Objective Data
Data Reviewed
Vital Signs / I&O / Oxygen:
Vital Signs
Temp Pulse Resp BP Pulse Ox
98.6 F 89 12 86/61 95
11/02/24 03:05 11/02/24 06:00 11/02/24 06:00 11/02/24 00:00 11/02/24 06:00
Intake and Output
11/01/24 11/02/24 11/03/24
06:59 06:59 07:59
Intake Total 2173.5 / 2209.2 1764.5 / 1764.5
Output Total 1635 / 1670 1444 / 1444
Balance 538.5 / 539.2 320.5 / 320.5
SaO2 [A/C] 100
SaO2 95
Physical Exam
General: Comfortable
HEENT: Normocephalic
Cardiovascular: S1-S2
Respiratory: Clear
GI: Soft
Neurology: Other (Currently sedated)
Skin: Warm
Labs/Micro/Reports
Lab Data
11/02/24 04:06
11/02/24 04:06
Laboratory Results
11/02/24
04:06
pH 7.36
pCO2 44
pO2 100
HCO3 24.9
O2 Delivery Level 40%
Microbiology
10/31/24 02:39 Blood/Venous Blood Culture - Preliminary
No Growth in 48 hours- Final report to follow
10/31/24 02:39 Blood/Venous Blood Culture - Preliminary
No Growth in 48 hours- Final report to follow
10/31/24 08:59 Sputum Respiratory Culture - Preliminary
Streptococcus pyogenes
10/31/24 08:59 Sputum Gram Stain - Preliminary
10/31/24 02:56 Urine Urine Culture - Final
NO GROWTH
10/31/24 04:00 Urine Legionella Urinary Antigen - Final
Negative for Legionella pneumophila Serogroup 1 antigen.
A negative result does not rule out the possiblity of
Legionella infection due to other serogroups or species of
Legionella. Clinical correlation is recommended.
10/31/24 04:00 Urine Streptococcus pneumoniae Antigen (M - Final
Negative for Streptococcus pneumoniae antigen.
A negative result does not exclude infection with
Streptococcus pneumoniae. Clinical correlation is
recommended.
10/30/24 23:23 Nasal Swab Influenza Types A & B ([facility]) - Final
Influenza A Positive, NAAT
--- NOTE | 2024-11-02 07:30 | PTCARENOTE ---
Assumed care of pt. approx 0700.
Intubated/sedated.
Sedation weaned down for SBT/SAT for ventilator liberation.
Remains on phenylephrine see titration flowsheet for details.
Not following all commands, at times can follow simple commands. Normocephalic/anicteric.
Afib rate controlled on amio. Normothermic.
Decreased urine OP, trending via [place].
[2024-11-02] MEDS: MIRALAX TUBE (07:33)
[2024-11-02] MEDS: NOVOLOG FLEXPEN SC ×2 (07:33→14:16)
[2024-11-02] MEDS: FLOMAX TUBE (07:33)
[2024-11-02] MEDS: XARELTO TUBE (07:34)
[2024-11-02] MEDS: PROSCAR TUBE (07:34)
[2024-11-02] MEDS: TAMIFLU PO (07:34)
[2024-11-02] MEDS: DUONEB 3 ML INH ×4 (07:36→20:11)
[2024-11-02] MEDS: PROTONIX IV 40 MG IV (07:40)
[2024-11-02] MEDS: SOLU-MEDROL PF 20 MG IV (07:44)
[2024-11-02] MEDS: NSS (PRESERVATIVE FREE) 10 ML IV (07:44)
[2024-11-02 07:50] VITALS: BP_SYST 150
[2024-11-02] MEDS: LAC HYDRIN, AM LACTIN LOTION 1 APPLIC TOPICAL (07:55)
--- NOTE | 2024-11-02 07:59 | PTCARENOTE ---
Started on SBT/SAT, 04/01, ABG at 0900.
[2024-11-02 08:00] VITALS: BP 122/84
[2024-11-02 08:36] LABS: Glucose - Point of Care 165 mg/dl (70-99)
[2024-11-02 09:12] VITALS: BP_SYST 155
[2024-11-02 09:21] LABS: B.E. -0.4 mmol/L; HCO3 24.8 mmol/L (21-28); O2 Saturation % 98.2 % (94-98); PCO2 42 mmHg (35-48); PO2 116 mmHg (83-108); pH 7.38 (7.35-7.45)
--- NOTE | 2024-11-02 09:33 | PTCARENOTE ---
Pt. failed wean after x1 hour. Hypertension/Sustained tachycardia in 140-150s.
Placed back on CMV, sedation orders resumed see titration flowsheets for details.
--- NOTE | 2024-11-02 09:48 | W.PN.ID1 ---
Date of Service
Date of Service: November 02, 2024
Today's Communication
Narrow Vancomycin/cefepime to ceftriaxone 2g IV q24h (d4 abx).
Resume oseltamivir ZBIGNIEW when able to take po.
Assessment / Plan
# Severe influenza A infection.
# Superimposed group A strep pneumonia
# Acute hypoxemic respiratory failure, weaning off vent.
# Septic shock weaned off pressors
# Fever - resolved
# Leukocytosis - stable, partially due to steroid
# DEONDRE - resolved
# Afib with RVR
# Multiple antibiotic allergies
# MRSA colonized
- Oseltamivir received 3 of 10 doses. Currently on hold due to no enteral access.
Resume when able to take po.
- blood cx's neg to date
- Sputum cx: group A strep
- Narrow Vancomycin/cefepime to ceftriaxone 2g IV q24h (d4 abx).
-Trend wbc
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
DM2
neuropathy
COPD
Afib hx ablation, cardioversion
CAD s/p stent
HFpEF
RA on MTX, leucovorin, folic acid, 5mg prednisone
HTN
dyslipidemia
sleep apnea on CPAP
nephrolithiasis
Chronic back pain
BPH
Sacral decubitus
class III obesity
bilateral TKR
right SONIA
Spine surgery
hernia repair
esophageal stricture dilation
BLE fracture
Chief Complaint
-: Clinical Sepsis, Pneumonia and Other (Flu)
Subjective / Review of Systems
Awake on vent.
Vital Signs / Physical Exam
Vital Signs
Vital Signs
Temp Pulse Resp BP Pulse Ox
99.0 F 124 20 122/84 99
11/02/24 07:36 11/02/24 09:12 11/02/24 09:12 11/02/24 08:00 11/02/24 09:35
Physical Exam
Constitutional: Acutely Ill
Eyes: Sclera Anicteric
Cardiovascular: Other (tachycardic)
Pulmonary: Other (clear anteriorly)
Gastrointestinal: Soft, Non Tender, Non Distended and Normal Bowel Sounds
Genito-Urinary: Negative CVA Tenderness
Neurological: Awake
Objective Data
Lab Data
Lab Results
11/02/24 04:06
11/02/24 04:06
APTT 49.4 Sec (23.4-35.0) H 10/30/24 23:27
Estimated Creat Clear 97 ml/min 11/02/24 04:06
Lactic Acid 1.7 mmol/L (0.7-2.0) 10/31/24 04:49
Total Bilirubin 0.7 mg/dl (0.2-1.3) 11/01/24 03:54
AST 50 U/L (17-59) 11/01/24 03:54
ALT 60 U/L (0-50) H 11/01/24 03:54
Alkaline Phosphatase 160 U/L (38-126) H 11/01/24 03:54
Most recent labs reviewed.
Micro Results:
10/31/24 02:39 Blood Culture - Preliminary
Blood/Venous No Growth in 48 hours- Final report to follow
10/31/24 02:39 Blood Culture - Preliminary
Blood/Venous No Growth in 48 hours- Final report to follow
10/31/24 08:59 Respiratory Culture - Preliminary
Sputum Streptococcus pyogenes
Gram Stain - Preliminary
10/31/24 02:56 Urine Culture - Final
Urine NO GROWTH
10/31/24 04:00 Legionella Urinary Antigen - Final
Urine Negative for Legionella pneumophila Serogroup 1 antigen.
A negative result does not rule out the possiblity of
Legionella infection due to other serogroups or species of
Legionella. Clinical correlation is recommended.
Streptococcus pneumoniae Antigen (M - Final
Negative for Streptococcus pneumoniae antigen.
A negative result does not exclude infection with
Streptococcus pneumoniae. Clinical correlation is
recommended.
10/30/24 23:23 Influenza Types A & B ([facility]) - Final
Nasal Swab Influenza A Positive, NAAT
10/30/24 CXR: Endotracheal tube with tip in trachea above the joseluis and nasogastric tube extending into the abdomen with tip off the image.
10/30/24 CXR: Low lung volumes with crowding of central/vascular markings. No focal consolidation to suggest pneumonia, pneumothorax or pleural effusion.
10/31/24 CT C/A/P: No evidence of pulmonary embolism or thoracic aortic dissection. Mild bibasilar subsegmental atelectasis, otherwise clear lungs. Severe coronary arterial calcification. Please correlate with symptoms of and risk factors for
coronary artery disease, with further workup as clinically appropriate. Findings suggestive of constipation. No evidence of intestinal obstruction or bowel inflammatory process. Scattered pancreatic calcifications suggestive of mild chronic
pancreatitis.
11/02/24 CXR: Small opacities projecting over the mid and lower right lung which may represent atelectasis, however pneumonia could appear similar.
Care Review
Plan reviewed with: Physician (Dr. Adams)
[2024-11-02] MEDS: CORDARONE 518 MG IV (09:50)
[2024-11-02] MEDS: ROCEPHIN 2000 MG IV (09:51)
[2024-11-02] MEDS: NEO-SYNEPHRINE 250 IV (09:52)
[2024-11-02 10:37] LABS: Glucose - Point of Care 215 mg/dl (70-99)
--- NOTE | 2024-11-02 10:46 | PTCARENOTE ---
Insulin gtt restarted via protocol.
[2024-11-02 11:41] LABS: Glucose - Point of Care 220 mg/dl (70-99)
[2024-11-02 12:38] LABS: Glucose - Point of Care 242 mg/dl (70-99)
--- NOTE | 2024-11-02 13:46 | W.PN.HOSP.TC ---
Today's Communication/Plan
-
Continue ceftriaxone and Tamiflu
Continue stress dose steroid
SAT/SBT per ICU
Amiodarone drip
Goals of care with family today
Assessment / Plan
Assessment / Plan
#Ventilator dependent respiratory failure
#Influenza +/- CAP
-Presented in respiratory distress with alkalosis on labs, intubated for work of breathing
-Found to be influenza positive on admission labs, also concern for superimposed pneumonia
-Was started on Tamiflu, cefepime and vancomycin empirically; blood cultures taken prior to Abx
-Chest CT and x-ray without obvious signs of consolidation; procalcitonin returned at 1.22
-Streptococcus antigen and Legionella antigens negative; sputum culture grew strep pyogenes
-Has since been transitioned from broad-spectrum antibiotics to IV CTX
-Day 3 of MV settings CMV 12/600/40/8 with P peak 27
-ICU/pulmonology, ID following
Plan
-Trend ABG, wean FiO2 as possible; continue with SAT/SBT as appropriate
-Continue ceftriaxone 2 g daily and Tamiflu BID
-Continue with bronchodilators as possible
-Sedation for RASS -3 to -1
-SpO2 goal 88 to 94% with COPD history
#Septic shock
-Suspect secondary to viral +/- bacterial pneumonia
-Hypotensive despite sepsis fluid bolus in the ED, was started on vasopressors
-Blood cultures currently pending, on broad-spectrum antibiotics as above
-Holding home antihypertensive medications including SHANNAN inhibitor
-Initially on Levophed and vasopressin; now on phenylephrine alone due to RVR
-Multiple antibiotic allergies as listed in EMR
Plan
-Wean vasopressors for MAP >65
-Hold antihypertensive agents and continue stress dose steroid
-Follow blood cultures and continue antibiotic
-Monitor BMP, urine output, I's/O's closely
-Trend CBC and temperature curve
#Paroxysmal atrial fibrillation
-Status post DCCV x 2; nonvalvular; Home regimen includes Xarelto and metoprolol succinate
-Was stable until SAT/SBT on 11/01/2024 when he developed RVR; started on amiodarone drip with improvement
-Remains hemodynamically adequate with vasopressors, HR near 120 this morning
-Vasopressors were transition from Levophed to phenylephrine due to RVR
Plan
-Continue amiodarone drip and Xarelto
-Plan to resume metoprolol when hemodynamics allow
-Continue with HR goal <120 with critical illness
-Monitor on telemetry here
#Chronic hypoxemic and hypercapnic respiratory failure
#COPD
#JOHNNIE
-Patient with BiPAP dependent respiratory failure
-Home regimen includes Advair for maintenance, DuoNebs as needed
-Anticipated will be difficult to liberate from ventilator
#HFpEF
-Last echocardiogram with preserved LVEF, dilated RV though unable to assess RV systole
-Suspect that this is predominant RV failure with group 3 pulmonary hypertension due to COPD/JOHNNIE
-Home regimen includes bumetanide 1 mg daily; not on GDMT
-Holding Bumex due to circulatory shock, appears euvolemic otherwise
#CAD s/p PCI
-Home medications include atorvastatin, metoprolol, and ACEi; not on antiplatelet but is on Xarelto
-Unknown when stent was placed or which coronary it was placed in
-Holding beta-lj due to circulatory shock, remains on Xarelto
#Rheumatoid arthritis
-Home medications include methotrexate and prednisone 5 mg daily
-No known complications of CAD or ILD
-Holding methotrexate, continued on steroid
-No signs of flare
#T2DM with neuropathy
-Insulin-dependent; Home regimen includes Lantus 54 units HS, lispro 10 units AC, tirzepatide
-Medications also include gabapentin 900 mg 3 times daily for his neuropathy
-Upon arrival was transition to 20 units glargine twice daily with ISS due to n.p.o. status
-Was started on insulin drip as sugars worsened with steroid; BG goal 140-180
#BPH
-Home regimen includes tamsulosin and finasteride
-Currently with Wallace catheter in place for strict I's and O's
-Will perform TOV prior to discharge
DVT prophylaxis: Home Xarelto
GI prophylaxis: IV pantoprazole
Diet: Tube feeds with Jevity 1.5
CODE STATUS: Currently full code, family to reconsider based on progression over next day or two
Discussed with saddle and side wire stitcher
Anticipated Discharge: > 48 hours
Subjective/Interval History
-
Date of Service: November 02, 2024
Seen and examined at the bedside. No acute events reported overnight. Hemodynamically adequate on phenylephrine and mechanical ventilation
Failed SAT/SBT yesterday and subsequently developed SVT that degenerated to AF with RVR. Was started on amiodarone drip and full dose Lovenox 1 mg/kg twice daily.
Mechanical ventilator day #3. Appropriately sedated. Unable to obtain ROS
Objective Data
-
Labs:
Laboratory Results
11/02/24 11/02/24
04:06 09:02
WBC 29.6 H
Hgb 10.5 L
Hct 32.0 L
Plt Count 184
HCO3 24.9 24.8
Sodium 132 L
Potassium 4.9
Chloride 100
Carbon Dioxide 23
BUN 29 H
Creatinine 0.9
Glucose 125 H
Calcium 8.5
Vital Signs:
Vital Signs
Temp Pulse Resp BP Pulse Ox
99.3 F 95 13 122/84 96
11/02/24 11:20 11/02/24 11:29 11/02/24 11:29 11/02/24 08:00 11/02/24 11:29
I&O
11/01/24 11/02/24 11/03/24
06:59 06:59 07:59
Intake Total 2173.5 / 2209.2 1764.5 / 1842.9 285.7 / 285.7
Output Total 1635 / 1670 1444 / 1464 195 / 195
Balance 538.5 / 539.2 320.5 / 378.9 90.7 / 90.7
Review of Systems
-
History Source: Patient
All other systems: Reviewed and negative
Physical Exam
-
General: Well Developed, No Apparent Distress and Morbidly Obese
HEENT: Normocephalic, Atraumatic, Moist Mucous Membranes and Anicteric
Respiratory: Non Labored Respirations and Other (Coarse breath sounds centrally); Negative Accessory Resp Muscle Use
Cardiac: S1/S2, Irregular Rhythm and Tachycardic; Negative Murmur, Rub or Gallop
GI: Soft, Nontender, Nondistended and Normal Bowel Sounds
Musculoskeletal: No Clubbing, No Cyanosis and No Edema
Skin: Warm and Dry; Negative Rash
Neuro: Sedated, Nonfocal/Grossly Intact and Other (PERRL)
Psych: Calm
Data Reviewed
-
Labs: Labs Reviewed by me and Discussed with Patient
[2024-11-02 14:24] LABS: Glucose - Point of Care 247 mg/dl (70-99)
[2024-11-02] MEDS: STERILE WATER FOR INJECTION IV (15:12)
[2024-11-02 15:16] LABS: Glucose - Point of Care 227 mg/dl (70-99)
--- NOTE | 2024-11-02 15:45 | PTCARENOTE ---
Family updated bedside, all questions answered.
Dobhoff placement confirmed via CXR film, TF started per RD recommendations see flowsheet for details.
Remains on insulin gtt, phenyl, amio, dip/fent.
No changes in patient assessment.
[2024-11-02 16:00] VITALS: BP 99/57
[2024-11-02 16:19] LABS: Glucose - Point of Care 235 mg/dl (70-99)
[2024-11-02] MEDS: NOVOLOG FLEXPEN 8 UNITS SC (17:09)
[2024-11-02 17:18] LABS: Glucose - Point of Care 190 mg/dl (70-99)
[2024-11-02 18:20] LABS: Glucose - Point of Care 151 mg/dl (70-99)
[2024-11-02] MEDS: NOVOLIN R INSULIN INFUSION 100 IV (18:50)
[2024-11-02 19:23] LABS: Glucose - Point of Care 125 mg/dl (70-99)
[2024-11-02] MEDS: TAMIFLU 75 MG PO (20:14)
[2024-11-02 20:19] LABS: Glucose - Point of Care 108 mg/dl (70-99)
--- NOTE | 2024-11-02 21:00 | PTCARENOTE ---
Assumed care of pt at 1900. Pt intubated, #7.5 ETT, 25 cm at lip, ETT garcia changed with RT towards start of shift. Vent settings AC 12/600/40/8. SpO2 94-96%. Received pt on Amiodarone, Fentanyl, Propofol, and Insulin infusions. Phenylephrine
turned off during dayshift. AFib on monitor with BBB, HR 70s-80s. Assessment as documented in nursing shift assessment flowsheet. See med titration flowsheets for infusion rates/titrations.
[2024-11-02 21:27] LABS: Glucose - Point of Care 92 mg/dl (70-99)
[2024-11-02 22:31] LABS: Glucose - Point of Care 117 mg/dl (70-99)
[2024-11-02 23:24] LABS: Glucose - Point of Care 136 mg/dl (70-99)
[2024-11-03] VITALS (7 sets, daily range): BP systolic 91–176; BP diastolic 55; PULSE 2–108; BMI 42.0
[2024-11-03] MEDS: DIPRIVAN 100 IV ×3 (00:30→05:24)
[2024-11-03 00:47] LABS: Glucose - Point of Care 163 mg/dl (70-99)
--- NOTE | 2024-11-03 01:20 | PTCARENOTE ---
Midnight assessment unchanged. Insulin drip turned off at 2115 per protocol, Accuchecks ongoing per critical care glycemic protocol. Remains on same infusions, same vent settings. Tube feed rate increased from 20mL/hr to 40mL/hr at 0020.
[2024-11-03 03:38] LABS: Glucose - Point of Care 182 mg/dl (70-99)
[2024-11-03 04:13] LABS: B.E. -1.6 mmol/L; HCO3 24.3 mmol/L (21-28); PCO2 45 mmHg (35-48); PO2 101 mmHg (83-108); pH 7.34 (7.35-7.45)
[2024-11-03 04:26] LABS: Hemoglobin 9.3 g/dL (13.0-18.0); Mean Corp Hgb Conc. 33.2 g/dL (33.0-37.0); Mean Corpuscular Hgb 31.8 pg (27.0-31.0); Mean Corpuscular Volume 95.9 fL (80.0-94.0); Mean Platelet Volume 10.8 fL (7.4-10.4); Platelet Count 161 10^3/uL (130-400); Red Blood Cell Count 2.92 10^6/uL (4.70-6.10); Red Cell Dist. Width 18.3 % (11.5-14.5); White Blood Cell Count 15.7 10^3/uL (4.8-10.8)
[2024-11-03] MEDS: SUBLIMAZE 100 IV (04:43)
[2024-11-03 04:45] LABS: Blood Urea Nitrogen 35 mg/dl (9-20); Calcium 8.4 mg/dl (8.4-10.2); Carbon Dioxide 23 mmol/L (22-30); Chloride 101 mmol/L (98-107); Estimated Creatinine Clearance 87 ml/min; Glucose 176 mg/dl (70-99); Magnesium 2.4 mg/dl (1.6-2.3); Sodium 133 mmol/L (135-145); Triglycerides 147 mg/dl (10-149); eGFR > 60.00
--- NOTE | 2024-11-03 04:58 | PTCARENOTE ---
0400 assessment unchanged. Pt back on insulin infusion at 0300. CHG cloth bath done and linens changed.
[2024-11-03 05:04] LABS: Glucose - Point of Care 183 mg/dl (70-99)
[2024-11-03 06:13] LABS: Glucose - Point of Care 171 mg/dl (70-99)
[2024-11-03] MEDS: NOVOLOG FLEXPEN SC ×3 (07:05→16:29)
--- NOTE | 2024-11-03 07:08 | W.PN.INTV ---
Addendum entered and electronically signed by Maury Adams MD 11/03/24 15:50:
- Patient has known history of noncompliance with PAP therapy at night
-Postextubation patient BiPAP for a little bit but as he is more awake and alert he has twice pulled off his mask
-Will continue to monitor closely in the unit, patient at high risk of developing hypercapnia and requiring reintubation
-Will continue to encourage BiPAP as tolerated
Addendum entered and electronically signed by Maury Adams MD 11/03/24 09:59:
-Patient was placed on pressure support this morning which he tolerated well, follow-up ABG normal, successfully extubated
-BiPAP postextubation, 2 hours on, 2 hours off during daytime today and continue nightly
-Continue to monitor in the ICU for 24 hours, patient at risk of reintubation
-Updated daughter at bedside
Original Note:
Today's Communication / Plan
Recommendations
-Lasix IV 40 mg stat
-SAT. SBT, if tolerates, extubate to BIPAP
-ABG and CXR in AM
-Pro-BNP in AM
Assessment
-
78-year-old gentleman with known history of JOHNNIE, noncompliant with nightly CPAP, morbid obesity, heart failure with preserved ejection fraction, developed respiratory distress at shelter facility. Reportedly his roommate also had
respiratory symptoms. Patient tested positive for influenza A. In the emergency room he was hypoxic and hypotensive and was initially tried on BiPAP with suboptimal response. Patient was subsequently intubated and admitted to ICU. Patient
required pressor support for hypotension and was noted to be hypovolemic on initial admission and responded well to IV fluids.
Last 24 hrs:
Patient failed SBT, 11/01 as well as 11/02 as he would develop significant RVR on pressure support
Fluid balance, +1.3 L
Hemoglobin slightly downtrending at 9.3, white count improved to 15.7 from 29.6 yesterday
Electrolytes unremarkable, creatinine stable
Blood sugar 136-182
Sputum growing strep pyogenes, also influenza A positive
Chest x-ray, small multifocal opacities on the right side suspicious for pneumonia
BG 0309, 7.34, 45, 101 on volume AC, 600, 12, 40% and PEEP of 8
Current drips, amiodarone infusion for A-fib, phenylephrine and vasopressin for shock (off Levophed), Insulin infusion for DM
#1. Acute hypoxic respiratory failure in the setting of influenza A infection with superimposed right sided multifocal pneumonia
-Patient's respiratory failure is multifactorial. This is a morbidly obese gentleman was supposed to be on nightly CPAP for JOHNNIE who in addition has heart failure with preserved ejection fraction and recently likely contracted influenza A which led
to further respiratory decompensation. He failed BiPAP in the emergency room
-Strep pyogenes noted in the sputum in addition to influenza A
-Daily SAT SBT
-Antibiotics per infectious disease service, currently on ceftriaxone and Tamiflu
-Patient on chronic prednisone therapy for rheumatoid arthritis, getting stress dose steroid with Solu-Medrol 20 daily
-ABG and chest x-ray in a.m.
-Failed SBT with resultant atrial fibrillation and rapid ventricular rate on 11/01 and 11/02
#2. Shock, suspect septic shock.
-Follow-up on blood cultures
-Continue phenylephrine, weaned Levophed in view of rapid ventricular rate. Continue vasopressin
-Status post IV fluid resuscitation
-Procalcitonin elevated, serial lactate improved
-Strep noted on sputum cultures
-Infectious disease service on case
#3. Diabetes mellitus
-Continue insulin infusion as ordered
-Continue tube feeding
#4. History of COPD, morbid obesity and questionable JOHNNIE
-Currently patient is not wheezing, no auto PEEP noted
-Presentation not suggestive of COPD exacerbation
-When ready for extubation, will extubate to BiPAP
#5. History of coronary artery disease status post PCI
-Troponin downtrending
#6. Heart failure with preserved ejection fraction (EF 55-60%, RV not visualized on ECHO in 08/2024)
-Current presentation does not appear to be related to volume overload rather patient looked hypovolemic on initial presentation
-S/p 2 L bolus in the emergency room, followed by another 500 mL bolus after arrival to ICU
-Monitor intake and output closely
-Lasix today as patient now in positive fluid balance
#7. Paroxysmal atrial fibrillation, rate is normal
-Continue amiodarone
-Continue phenylephrine and weaned Levophed, continue vasopressin
-Continue Xarelto for anticoagulation
#8. History of rheumatoid arthritis with chronic prednisone use
-Continue Solu-Medrol 20 daily while patient is critically ill and dose can be decreased back to home dose of prednisone once patient recovers from shock
DVT prophylaxis: Xarelto
GI Prophylaxis: PPI
-Will attempt SAT/SBT today
Critical Care time 45 mins -- The patient is admitted for acute critical illness for the treatment of vital organ failure and/or prevention of further life-threatening conditions. Total care includes time spent in review of history, physical exam,
medications, hemodynamic/ventilator parameters, laboratory data, imaging and discussion with house staff, pharmacy, respiratory therapy, community specialist, and nursing. This time includes the time spent placing central line and left internal jugular vein.
Subjective Dataa
Subjective Data
Date of Service:
Date of Service: November 03, 2024
Subjective:
Patient more awake, tolerating SAT and placed on pressure support 8 x 5
Review of Systems
General: Unobtainable - Sedation
Objective Data
Data Reviewed
Vital Signs / I&O / Oxygen:
Vital Signs
Temp Pulse Resp BP Pulse Ox
98 F 80 12 91/55 97
11/03/24 03:33 11/03/24 06:00 11/03/24 06:00 11/03/24 00:00 11/03/24 06:00
Intake and Output
11/02/24 11/03/24 11/04/24
05:59 06:59 06:59
Intake Total
Output Total
Balance
SaO2 [A/C] 95
SaO2 97
Physical Exam
General: Comfortable
HEENT: Normocephalic
Cardiovascular: S1-S2
Respiratory: Clear
GI: Soft
Neurology: Other (Currently sedated)
Skin: Warm
Labs/Micro/Reports
Lab Data
11/03/24 04:02
11/03/24 04:02
Laboratory Results
11/02/24 11/03/24
09:02 04:02
pH 7.38 7.34 L
pCO2 42 45
pO2 116 H 101
HCO3 24.8 24.3
O2 Delivery Level
Microbiology
10/31/24 02:39 Blood/Venous Blood Culture - Preliminary
No Growth in 72 hours- Final report to follow
10/31/24 02:39 Blood/Venous Blood Culture - Preliminary
No Growth in 72 hours- Final report to follow
10/31/24 08:59 Sputum Respiratory Culture - Final
Streptococcus pyogenes
10/31/24 08:59 Sputum Gram Stain - Final
10/31/24 02:56 Urine Urine Culture - Final
NO GROWTH
10/31/24 04:00 Urine Legionella Urinary Antigen - Final
Negative for Legionella pneumophila Serogroup 1 antigen.
A negative result does not rule out the possiblity of
Legionella infection due to other serogroups or species of
Legionella. Clinical correlation is recommended.
10/31/24 04:00 Urine Streptococcus pneumoniae Antigen (M - Final
Negative for Streptococcus pneumoniae antigen.
A negative result does not exclude infection with
Streptococcus pneumoniae. Clinical correlation is
recommended.
[2024-11-03 07:11] LABS: Glucose - Point of Care 150 mg/dl (70-99)
[2024-11-03] MEDS: TAMIFLU 75 MG TUBE (07:11)
[2024-11-03] MEDS: NSS (PRESERVATIVE FREE) 10 ML IV (07:11)
[2024-11-03] MEDS: XARELTO 20 MG TUBE (07:11)
[2024-11-03] MEDS: SOLU-MEDROL PF 20 MG IV (07:11)
[2024-11-03] MEDS: PROSCAR 5 MG TUBE (07:11)
[2024-11-03] MEDS: PROTONIX IV 40 MG IV (07:11)
[2024-11-03] MEDS: MIRALAX 17 GRAMS TUBE (07:12)
[2024-11-03] MEDS: LAC HYDRIN, AM LACTIN LOTION 1 APPLIC TOPICAL (07:25)
[2024-11-03] MEDS: DUONEB 3 ML INH ×4 (07:27→19:34)
--- NOTE | 2024-11-03 07:50 | PTCARENOTE ---
pt received from previous rn- intubated and sedated on propofol and fentanyl. pt opens eyes to name, does not follow commands. continues on amio and insulin infusions. afib with bbb on monitor. see vent settings as charted. right radial iron zeroed
and functioning. remains off pressors maintaining systolic>90. collado draining yellow urine. right nare dobhoff at 65cm, tube feeds continue and pt tolerating. all safety precautions in place.
[2024-11-03] MEDS: FLOMAX 0.4 MG TUBE (08:10)
[2024-11-03 08:11] LABS: Glucose - Point of Care 136 mg/dl (70-99)
--- NOTE | 2024-11-03 08:11 | PTCARENOTE ---
Dr. Adams and respiratory at bedside- propofol off, placed on wean. pt tolerating at this time.
--- NOTE | 2024-11-03 08:17 | PTCARENOTE ---
Dr. Adams and respiratory at bedside- propofol and fent off, placed on wean. pt tolerating at this time.
[2024-11-03] MEDS: STERILE WATER FOR INJECTION 20 ML IV (08:57)
[2024-11-03] MEDS: ROCEPHIN 2000 MG IV (08:57)
[2024-11-03] MEDS: LASIX 40 MG IV (08:57)
[2024-11-03 09:07] LABS: Glucose - Point of Care 145 mg/dl (70-99)
--- NOTE | 2024-11-03 09:08 | PTCARENOTE ---
Dr. Adams aware of bp in 160s-170s, daughter at bedside and updated. abg sent per order, wean continues.
[2024-11-03 09:13] LABS: B.E. 1.2 mmol/L; O2 Saturation % 98.7 % (94-98); PCO2 41 mmHg (35-48); PO2 125 mmHg (83-108); pH 7.41 (7.35-7.45)
--- NOTE | 2024-11-03 09:48 | PTCARENOTE ---
pt extubated to bipap /6, tolerating. nodding yes and no appropriately. turned and repositioned.
--- NOTE | 2024-11-03 10:36 | W.PN.ID1 ---
Date of Service
Date of Service: November 03, 2024
Today's Communication
Continue oseltamivir and ceftriaxone.
Assessment / Plan
# Severe influenza A infection.
# Superimposed group A strep pneumonia
# Acute hypoxemic respiratory failure, weaning off vent.
# s/p Septic shock
# Fever - resolved
# Leukocytosis - trending down
# DEONDRE - resolved
# Afib with RVR
# Multiple antibiotic allergies
# MRSA colonized
- Oseltamivir (dose # 5 of 10 doses)
- blood cx's neg to date
- Sputum cx: group A strep
- Continue ceftriaxone 2g IV q24h (d5 abx).
-Trend wbc
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
DM2
neuropathy
COPD
Afib hx ablation, cardioversion
CAD s/p stent
HFpEF
RA on MTX, leucovorin, folic acid, 5mg prednisone
HTN
dyslipidemia
sleep apnea on CPAP
nephrolithiasis
Chronic back pain
BPH
Sacral decubitus
class III obesity
bilateral TKR
right SONIA
Spine surgery
hernia repair
esophageal stricture dilation
BLE fracture
Chief Complaint
-: Clinical Sepsis, Pneumonia and Other (Flu)
Subjective / Review of Systems
Daughter at bedside.
Hoping to extubate today.
She reports pt recently at rehab and may have been exposed to the flu.
Vital Signs / Physical Exam
Vital Signs
Vital Signs
Temp Pulse Resp BP Pulse Ox
97.6 F 111 14 91/55 96
11/03/24 07:00 11/03/24 09:00 11/03/24 09:00 11/03/24 00:00 11/03/24 09:50
Physical Exam
Constitutional: Comfortable
Eyes: Sclera Anicteric
Cardiovascular: Regular Rate and S1/S2
Pulmonary: Other (anterior chest clear)
Gastrointestinal: Soft, Non Tender, Non Distended and Normal Bowel Sounds
Genito-Urinary: Wallace and Clear Urine; Negative CVA Tenderness
Neurological: Awake
Objective Data
Lab Data
Lab Results
11/03/24 04:02
11/03/24 04:02
APTT 49.4 Sec (23.4-35.0) H 10/30/24 23:27
Estimated Creat Clear 87 ml/min 11/03/24 04:02
Lactic Acid 1.7 mmol/L (0.7-2.0) 10/31/24 04:49
Total Bilirubin 0.7 mg/dl (0.2-1.3) 11/01/24 03:54
AST 50 U/L (17-59) 11/01/24 03:54
ALT 60 U/L (0-50) H 11/01/24 03:54
Alkaline Phosphatase 160 U/L (38-126) H 11/01/24 03:54
Most recent labs reviewed.
Micro Results:
10/31/24 02:39 Blood Culture - Preliminary
Blood/Venous No Growth in 72 hours- Final report to follow
10/31/24 02:39 Blood Culture - Preliminary
Blood/Venous No Growth in 72 hours- Final report to follow
10/31/24 08:59 Respiratory Culture - Final
Sputum Streptococcus pyogenes
Gram Stain - Final
10/31/24 02:56 Urine Culture - Final
Urine NO GROWTH
10/31/24 04:00 Legionella Urinary Antigen - Final
Urine Negative for Legionella pneumophila Serogroup 1 antigen.
A negative result does not rule out the possiblity of
Legionella infection due to other serogroups or species of
Legionella. Clinical correlation is recommended.
Streptococcus pneumoniae Antigen (M - Final
Negative for Streptococcus pneumoniae antigen.
A negative result does not exclude infection with
Streptococcus pneumoniae. Clinical correlation is
recommended.
10/30/24 23:23 Influenza Types A & B (YOKASTA) - Final
Nasal Swab Influenza A Positive, NAAT
10/30/24 CXR: Endotracheal tube with tip in trachea above the joseluis and nasogastric tube extending into the abdomen with tip off the image.
10/30/24 CXR: Low lung volumes with crowding of central/vascular markings. No focal consolidation to suggest pneumonia, pneumothorax or pleural effusion.
10/31/24 CT C/A/P: No evidence of pulmonary embolism or thoracic aortic dissection. Mild bibasilar subsegmental atelectasis, otherwise clear lungs. Severe coronary arterial calcification. Please correlate with symptoms of and risk factors for
coronary artery disease, with further workup as clinically appropriate. Findings suggestive of constipation. No evidence of intestinal obstruction or bowel inflammatory process. Scattered pancreatic calcifications suggestive of mild chronic
pancreatitis.
11/02/24 CXR: Small opacities projecting over the mid and lower right lung which may represent atelectasis, however pneumonia could appear similar.
[2024-11-03] MEDS: NOVOLOG FLEXPEN 4 UNITS SC (10:52)
[2024-11-03 10:59] LABS: Glucose - Point of Care 162 mg/dl (70-99)
--- NOTE | 2024-11-03 11:03 | W.PN.HOSP.TC ---
Today's Communication/Plan
-
Hopeful vent liberation
Continue ceftriaxone and Tamiflu
If liberated from vent to BiPAP remain in ICU for 24 hours due to high risk of reintubation
Continue amiodarone and stress dose steroid
Wean NIV as possible
Assessment / Plan
Assessment / Plan
#Ventilator dependent respiratory failure
#Influenza +/- CAP
-Presented in respiratory distress with alkalosis on labs, intubated for work of breathing
-Found to be influenza positive on admission labs, also concern for superimposed pneumonia
-Was started on Tamiflu, cefepime and vancomycin empirically; blood cultures taken prior to Abx
-Chest CT and x-ray without obvious signs of consolidation; procalcitonin returned at 1.22
-Streptococcus antigen and Legionella antigens negative; sputum culture grew strep pyogenes
-Has since been transitioned from broad-spectrum antibiotics to IV CTX
-Day 3 of MV settings CMV 12/600/40/8 with P peak 27
-ICU/pulmonology, ID following
Plan
-Trend ABG, wean FiO2 as possible; continue with SAT/SBT as appropriate
-Continue ceftriaxone 2 g daily and Tamiflu BID
-Continue with bronchodilators as possible
-Sedation for RASS -3 to -1
-SpO2 goal 88 to 94% with COPD history
#Septic shock
-Suspect secondary to viral +/- bacterial pneumonia
-Hypotensive despite sepsis fluid bolus in the ED, was started on vasopressors
-Blood cultures currently pending, on broad-spectrum antibiotics as above
-Holding home antihypertensive medications including SHANNAN inhibitor
-Initially on Levophed and vasopressin; now on phenylephrine alone due to RVR
-Multiple antibiotic allergies as listed in EMR
Plan
-Wean vasopressors for MAP >65
-Hold antihypertensive agents and continue stress dose steroid
-Follow blood cultures and continue antibiotic
-Monitor BMP, urine output, I's/O's closely
-Trend CBC and temperature curve
#Paroxysmal atrial fibrillation
-Status post DCCV x 2; nonvalvular; Home regimen includes Xarelto and metoprolol succinate
-Was stable until SAT/SBT on 11/01/2024 when he developed RVR; started on amiodarone drip with improvement
-Remains hemodynamically adequate with vasopressors, HR near 120 this morning
-Vasopressors were transition from Levophed to phenylephrine due to RVR
Plan
-Continue amiodarone drip and Xarelto
-Plan to resume metoprolol when hemodynamics allow
-Continue with HR goal <120 with critical illness
-Monitor on telemetry here
#Chronic hypoxemic and hypercapnic respiratory failure
#COPD
#JOHNNIE
-Patient with BiPAP dependent respiratory failure
-Home regimen includes Advair for maintenance, DuoNebs as needed
-Anticipated will be difficult to liberate from ventilator
#HFpEF
-Last echocardiogram with preserved LVEF, dilated RV though unable to assess RV systole
-Suspect that this is predominant RV failure with group 3 pulmonary hypertension due to COPD/JOHNNIE
-Home regimen includes bumetanide 1 mg daily; not on GDMT
-Holding Bumex due to circulatory shock, appears euvolemic otherwise
#CAD s/p PCI
-Home medications include atorvastatin, metoprolol, and ACEi; not on antiplatelet but is on Xarelto
-Unknown when stent was placed or which coronary it was placed in
-Holding beta-lj due to circulatory shock, remains on Xarelto
#Rheumatoid arthritis
-Home medications include methotrexate and prednisone 5 mg daily
-No known complications of CAD or ILD
-Holding methotrexate, continued on steroid
-No signs of flare
#T2DM with neuropathy
-Insulin-dependent; Home regimen includes Lantus 54 units HS, lispro 10 units AC, tirzepatide
-Medications also include gabapentin 900 mg 3 times daily for his neuropathy
-Upon arrival was transition to 20 units glargine twice daily with ISS due to n.p.o. status
-Was started on insulin drip as sugars worsened with steroid; BG goal 140-180
#BPH
-Home regimen includes tamsulosin and finasteride
-Currently with Wallace catheter in place for strict I's and O's
-Will perform TOV prior to discharge
DVT prophylaxis: Home Xarelto
GI prophylaxis: IV pantoprazole
Diet: Tube feeds with Jevity 1.5
CODE STATUS: Currently full code, family to reconsider based on progression over next day or two
Discussed with shore working supervisor
Family updated at bedside on 11/02 and 11/03. Prefer to keep him full code but will reassess over upcoming days
Anticipated Discharge: > 48 hours
Subjective/Interval History
-
Date of Service: November 03, 2024
Seen and examined at the bedside. No acute events reported overnight. Hemodynamically adequate and on pressure support 04/01 for SBT, drawing tidal volume 700-800 ml at times
Daughter at bedside and updated. Labs stable.
ROS unable to be obtained while intubated
Objective Data
-
Labs:
Laboratory Results
11/03/24 11/03/24
04:02 08:58
WBC 15.7 H
Hgb 9.3 L
Hct 28.0 L
Plt Count 161
HCO3 24.3 26.0
Sodium 133 L
Potassium 5.0
Chloride 101
Carbon Dioxide 23
BUN 35 H
Creatinine 1.0
Glucose 176 H
Calcium 8.4
Vital Signs:
Vital Signs
Temp Pulse Resp BP Pulse Ox
97.6 F 111 14 91/55 96
11/03/24 07:00 11/03/24 09:00 11/03/24 09:00 11/03/24 00:00 11/03/24 09:50
I&O
11/02/24 11/03/24 11/04/24
05:59 06:59 06:59
Intake Total 394.2 / 394.2
Output Total 470 / 470
Balance -75.8 / -75.8
Review of Systems
-
Unable to obtain full review of systems at this time due to: Patient Intubation
Physical Exam
-
General: Well Developed, Comfortable, Morbidly Obese and Other (On SBT)
HEENT: Normocephalic, Atraumatic and Moist Mucous Membranes
Respiratory: Rhonchi and Non Labored Respirations; Negative Accessory Resp Muscle Use
Cardiac: Regular Rhythm and S1/S2; Negative Murmur, Rub or Gallop
GI: Soft, Nontender, Nondistended and Normal Bowel Sounds
Genito-urinary: Clear Urine and Wallace
Musculoskeletal: No Clubbing, No Cyanosis and No Edema
Skin: Warm and Dry; Negative Rash
Neuro: Nonfocal/Grossly Intact and Other (Responsive, spontaneous eye opening, following directions)
Psych: Calm
[2024-11-03] MEDS: ULTRAM 25 MG PO (12:37)
--- NOTE | 2024-11-03 12:45 | PTCARENOTE ---
pt with strong productive cough, currently on 2LNC tolerating. pt able to state he is at hospital. assessment unchanged further.
[2024-11-03 12:47] LABS: Glucose - Point of Care 166 mg/dl (70-99)
[2024-11-03 14:49] LABS: Glucose - Point of Care 179 mg/dl (70-99)
[2024-11-03] MEDS: CORDARONE 518 MG IV (16:04)
[2024-11-03 16:24] LABS: B.E. 4.9 mmol/L; HCO3 29.9 mmol/L (21-28); O2 Saturation % 89.9 % (94-98); PCO2 45 mmHg (35-48); pH 7.43 (7.35-7.45)
[2024-11-03 16:28] LABS: Glucose - Point of Care 189 mg/dl (70-99)
[2024-11-03 16:29] LABS: PO2 59 mmHg (83-108)
--- NOTE | 2024-11-03 17:35 | PTCARENOTE ---
pt with episodes of desatting, abg done and Dr. Adams aware of results- pt remains on 2LNC sats 95%. pt more alert throughout day, able to help with turning and repositioning. daughter codi updated. no complaints from pt at this time. tube feeds
continue as per order. assessment unchanged further.
[2024-11-03 17:46] LABS: Glucose - Point of Care 177 mg/dl (70-99)
--- NOTE | 2024-11-03 17:49 | PTCARENOTE ---
While in the room obtaining glucose level for insulin drip, he verbalized to me 'I don't want to do this anymore'. I asked what he meant and he stated ' pull the plug, I can't do this anymore, I don't want to live like this'. Dr. Brooke notified
immediately. Pt in the meantime pulled out his DHT. Evaluating if he is alert enough to tolerate PO Intake. Dr. Brooke instructed RN to notify daughter of his conversation and discuss GOC. Primary nurse aware of this happening.
--- NOTE | 2024-11-03 18:08 | PTCARENOTE ---
Addendum entered by Radha Sweeney RN 11/03/24 18:21:
Dr. Adams aware pt pulled out dobhoff.
Original Note:
pt placed on 1:1 for safety, kersey department supervisor notified and Dr. Adams
[2024-11-03 18:34] LABS: Glucose - Point of Care 179 mg/dl (70-99)
[2024-11-03 19:42] LABS: Glucose - Point of Care 192 mg/dl (70-99)
[2024-11-03] MEDS: TAMIFLU TUBE (20:24)
--- NOTE | 2024-11-03 20:43 | PTCARENOTE ---
Pt's sonChuck's, spouse called unit asking for pt update. Son/[id number] not on contact list. Pt was asleep when family member called. Discussed w pt when he awoke, pt states it is okay to give medical information to Chuck ram. Updated
emergency contact info.
[2024-11-03 20:44] LABS: Glucose - Point of Care 176 mg/dl (70-99)
[2024-11-03 21:44] LABS: Glucose - Point of Care 192 mg/dl (70-99)
[2024-11-03 22:43] LABS: Glucose - Point of Care 183 mg/dl (70-99)
[2024-11-03 23:43] LABS: Glucose - Point of Care 168 mg/dl (70-99)
[2024-11-04] VITALS (15 sets, daily range): BP systolic 116–152; BP diastolic 47–108; PULSE 2–110; BMI 41.0
[2024-11-04] MEDS: NOVOLIN R INSULIN INFUSION 100 IV (00:29)
[2024-11-04 00:49] LABS: Glucose - Point of Care 173 mg/dl (70-99)
[2024-11-04] MEDS: ZOFRAN 4 MG IV (01:44)
[2024-11-04] MEDS: FLUSH (NSS) 1 FLUSH IV (01:45)
--- NOTE | 2024-11-04 02:12 | PTCARENOTE ---
Pt reports feeling slightly nauseous, PRN Zofran administered per order.
Pt incont large loose brown bm, incontinence care provided. Complete CHG bath and Wallace care given.
Pt remains in Afib, HR 100-110's.
1:1 remains at bedside
No other change in assessment. Will continue to monitor closely.
[2024-11-04 02:50] LABS: Glucose - Point of Care 175 mg/dl (70-99)
[2024-11-04 04:22] LABS: B.E. 5.2 mmol/L; HCO3 30.5 mmol/L (21-28); O2 Saturation % 95.2 % (94-98); PCO2 47 mmHg (35-48); PO2 77 mmHg (83-108); pH 7.42 (7.35-7.45)
[2024-11-04] MEDS: MORPHINE SULFATE 2 MG IV ×2 (04:33→22:36)
[2024-11-04 04:40] LABS: Glucose - Point of Care 154 mg/dl (70-99)
[2024-11-04 05:00] LABS: % Basophils 0.1 % (0-2); % Immature Granulocytes 1.2 % (0-0.5); % Monocytes 4.9 % (1.7-9.3); % Neutrophils 84.8 % (42.2-75.2); Absolute Immature Granulocytes 0.2 10^3/uL (0-0.05); Absolute Lymphocytes 1.4 10^3/uL (1.2-3.4); Absolute Monocytes 0.8 10^3/uL (0.1-0.6); Absolute Neutrophils 13.3 10^3/uL (1.4-6.5); Hematocrit 32.5 % (39.0-52.0); Hemoglobin 10.7 g/dL (13.0-18.0); Mean Corp Hgb Conc. 32.9 g/dL (33.0-37.0); Mean Corpuscular Hgb 30.7 pg (27.0-31.0); Mean Corpuscular Volume 93.4 fL (80.0-94.0); Mean Platelet Volume 10.8 fL (7.4-10.4); Nucleated Red Blood Cells % 0 % (-); Platelet Count 200 10^3/uL (130-400); Red Blood Cell Count 3.48 10^6/uL (4.70-6.10); Red Cell Dist. Width 18.1 % (11.5-14.5); White Blood Cell Count 15.6 10^3/uL (4.8-10.8)
--- NOTE | 2024-11-04 05:00 | PTCARENOTE ---
0355 Pt desaturated to 85%. RN entered room to find nasal cannula O2 removed. Attempted to put cannula back in place, pt blocks RN's hand and said 'NO.' Education provided on importance of O2 being re-placed, pt adamant about remaining on room air.
Pox as low as 83%. OPTIMIZATION CONSULTANT Johanna at bedside and had conversation with pt, pt continues to state he does not want O2 but was agreeable in the end. Pt told OPTIMIZATION CONSULTANT he had nonspecific pain, OPTIMIZATION CONSULTANT placed PRN order.
PRN Morphine administered per order. Will monitor for effect.
1:1 remains at bedside.
[2024-11-04 05:01] LABS: ALT (SGPT) 57 U/L (0-50); AST (SGOT) 56 U/L (17-59); Albumin 3.1 g/dl (3.5-5.0); Alkaline Phosphatase 151 U/L (38-126); Blood Urea Nitrogen 32 mg/dl (9-20); Calcium 8.4 mg/dl (8.4-10.2); Carbon Dioxide 29 mmol/L (22-30); Chloride 98 mmol/L (98-107); Estimated Creatinine Clearance 94 ml/min; Glucose 174 mg/dl (70-99); Sodium 135 mmol/L (135-145); Total Bilirubin 0.9 mg/dl (0.2-1.3); Total Protein 6.6 g/dl (6.3-8.2); eGFR > 60.00
[2024-11-04 05:05] LABS: INR 1.44; PT 17.8 Sec (11.4-14.6)
[2024-11-04 05:06] LABS: APTT 32.9 Sec (23.4-35.0)
[2024-11-04 05:09] LABS: NT-proBNP 3270 pg/ml
[2024-11-04 06:49] LABS: Glucose - Point of Care 171 mg/dl (70-99)
[2024-11-04] MEDS: DUONEB 3 ML INH ×3 (07:20→19:38)
[2024-11-04] MEDS: NOVOLOG FLEXPEN SC ×2 (07:52→10:51)
[2024-11-04] MEDS: PROTONIX IV 40 MG IV (07:53)
[2024-11-04] MEDS: NSS (PRESERVATIVE FREE) 10 ML IV (07:53)
[2024-11-04] MEDS: SOLU-MEDROL PF 20 MG IV (07:54)
[2024-11-04] MEDS: LAC HYDRIN, AM LACTIN LOTION 1 APPLIC TOPICAL (07:55)
--- NOTE | 2024-11-04 08:07 | W.PN.INTV ---
Today's Communication / Plan
Recommendations
Start Advair
Continue DuoNebs BID and prn for assistance with mucus expectoration
Once he can tolerate PO meds, then start Mucinex at that time
Aspiration precautions
Wean off insulin drip today and transition to basal�bolus insulin SQ dosing
Maintain SpO2 >90-94%
CPAP with sleep
Currently is NPO as he failed STAINED GLASS ARTIST � may need Dobbhoff tube placed if he continues to fail swallow evaluations by tomorrow as he is not getting Tamiflu or Xarelto
Psych consult given suicidal ideation; continue 1:1
Patient is stable for downgrade out of ICU to IMU. Pulmonary service will continue to briefly follow along. Once patient is discharged, he should continue following up with our office with Dr. Palomares (last visit 04/17/2024)
Assessment
-
79-year-old gentleman with known history of JOHNNIE, noncompliant with nightly CPAP, morbid obesity, heart failure with preserved ejection fraction, developed respiratory distress at assisted facility. Reportedly his roommate also had
respiratory symptoms. Patient tested positive for influenza A. In the emergency room he was hypoxic and hypotensive and was initially tried on BiPAP with suboptimal response. Patient was subsequently intubated and admitted to ICU. Patient
required pressor support for hypotension and was noted to be hypovolemic on initial admission and responded well to IV fluids.
#1. Acute hypoxic respiratory failure in the setting of influenza A infection with superimposed right sided multifocal pneumonia
-Patient's respiratory failure is multifactorial. This is a morbidly obese gentleman who was supposed to be on nightly CPAP for JOHNNIE who in addition has heart failure with preserved ejection fraction and recently likely contracted influenza A which
led to further respiratory decompensation. He failed BiPAP in the emergency room
-Strep pyogenes noted in the sputum in addition to influenza A
-Patient was extubated on 11/03/2024 --> now on nasal cannula at 2 L/min, saturating 90%
-Antibiotics per infectious disease service, currently on ceftriaxone and Tamiflu
-Patient on chronic prednisone therapy for rheumatoid arthritis, getting IV steroids with Solu-Medrol 20 daily --> transition back to PO once he can take PO meds (currently high aspiration risk)
#2. Shock, suspect septic shock - shock state resolved since 11/02/2024
-Follow-up on blood cultures (collected today as well as 10/31/2024, which shows NGTD)
-Maintain MAP >65
-Procalcitonin elevated (although did have DEONDRE at the time)
-Lactate normalized as of 10/31
-Strep pyogenes noted on sputum culture from 10/31/2024
-Defer antibiotics to ID
#3. Diabetes mellitus II (uncontrolled � HbA1c: 8.1 on 09/11/2024)
-Wean off insulin drip and continue with basal�bolus insulin SQ dosing
-Now off tube feeds as patient pulled out his NGT after extubation on 11/03
-Pharmacy will confirm home insulin medications
#4. History of asthma, morbid obesity and JOHNNIE on auto-CPAP at home
-Currently patient is not wheezing and is breathing comfortably on 2 L/min nasal cannula
-No hypercapnia seen on blood gases this admission
-Presentation not suggestive of COPD exacerbation
-Was previously on Advair 250mcg at home --> continue Advair here while hospitalized with donna Corley
-Continue with CPAP with sleep; outpatient follow-up with Dr. Palomares (last visit 04/17/2024)
#5. History of coronary artery disease status post PCI
-Troponin peaked at 0.035 on 10/30/2024 � no longer need to continue trending at this time
#6. Heart failure with preserved ejection fraction (EF 55-60%, RV poorly visualized on ECHO in 08/2024)
-Presentation earlier this admission did not appear to be related to volume overload --> patient looked hypovolemic on initial presentation as per Dr. Adams
-S/p 2 L bolus in the emergency room, followed by another 500 mL bolus after arrival to ICU
-Monitor strict I/O; trend UOP and BNP
-Lasix 40 mg IVP X1 given on 11/03/2024 --> CXR from today shows mild pulmonary vascular congestion
#7. Paroxysmal atrial fibrillation, rate is normal
-Continue amiodarone gtt
-Continue Xarelto for anticoagulation --> unfortunately patient failed his STAINED GLASS ARTIST evaluation; if patient continues to be high aspiration risk by tomorrow then we will need to start heparin drip vs LMWH
#8. History of rheumatoid arthritis with chronic prednisone use
-Continue Solu-Medrol 20 daily while patient is NPO and dose can be decreased back to home dose of prednisone once patient can safely swallow
#9. Suicidal ideation
-Patient said that he wanted to and RN appreciated suicidal ideation
-Consult psychiatry
-Continue 1:1
DVT prophylaxis: HSQ while NPO for meds
GI Prophylaxis: PPI (home med)
Lines: Remove A-line
Nutrition: STAINED GLASS ARTIST following; NPO for now; pt pulled out NGT --> unable to do tube feeds for now; may need to replace if pt fails STAINED GLASS ARTIST again tomorrow (11/05)
Patient is stable for downgrade out of ICU to IMU. Pulmonary service will continue to briefly follow along. Once patient is discharged, he should continue following up with our office with Dr. Palomares (last visit 04/17/2024)
Total time spent today was 76 minutes for this encounter. Time includes reviewing laboratory test/imaging results, reviewing pertinent medical records, obtaining and reviewing medical history, performing an appropriate exam, ordering medications,
tests and procedures. Time also includes documentation of this encounter, coordinating patient care and communicating with other healthcare professionals. Total time does not include separately billed tests performed on this date of service.
Subjective Dataa
Subjective Data
Date of Service:
Date of Service: November 04, 2024
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
Subjective:
Pt seen and evaluated this AM. HR 110 and saturating 92% on 2L/min. On amio gtt. Blood gas this AM shows pH 7.42 and pCO2 47. Patient has globs of thick mucus that is producing, and is bringing up with no issue. Currently on insulin drip at 1.7
units/hr. he is awake but only responding to some my questions, mainly with grunts. Not cooperative with my ROS questions.
Review of Systems
General: Other (Unable to obtain/uncooperative)
Objective Data
Data Reviewed
Vital Signs / I&O / Oxygen:
Vital Signs
Temp Pulse Resp BP Pulse Ox
99.9 F 120 20 91/55 91
11/04/24 07:01 11/04/24 07:23 11/04/24 07:23 11/03/24 00:00 11/04/24 08:00
Intake and Output
11/03/24 11/04/24 11/05/24
06:59 06:59 06:59
Intake Total 1344.5 / 1362.9 36.8 / 36.8
Output Total 4595 / 4655 135 / 135
Balance -3250.5 / -3292.1 -98.2 / -98.2
SaO2 [A/C] 98
SaO2 91
Nasal Cannula flow liters per 2
minute
Physical Exam
General: Respiratory Distress (n), Comfortable, Chills (n) and Sweats (n)
HEENT: Normocephalic
Cardiovascular: S1-S2, Rub (n), Peripheral Edema (n) and Cool Extremities
Respiratory: Clear, Wheeze (n), Crackles (n), Rhonchi (n), Non-Labored Respirations and Stridor (n)
GI: Soft, Non Tender and Normal Bowel Sounds
Neurology: Awake, Tremors (n) and Other (Uncooperative/noncommunicative at times)
Skin: Dry, Jaundice (n) and Other (Mottled lower extremities)
Labs/Micro/Reports
Lab Data
11/04/24 04:13
11/04/24 04:13
Laboratory Results
0311/03/24 11/04/24
08:58 16:15 04:13
PT Cancelled
INR Cancelled
APTT Cancelled
pH 7.41 7.43 7.42
pCO2 41 45 47
pO2 125 H 59 L* 77 L
HCO3 26.0 29.9 H 30.5 H
O2 Delivery Level
11/04/24
04:40
PT 17.8 H
INR 1.44
APTT 32.9
pH
pCO2
pO2
HCO3
O2 Delivery Level
Microbiology
10/31/24 02:39 Blood/Venous Blood Culture - Preliminary
No Growth in 4 days- Final report to follow
10/31/24 02:39 Blood/Venous Blood Culture - Preliminary
No Growth in 4 days- Final report to follow
10/31/24 08:59 Sputum Respiratory Culture - Final
Streptococcus pyogenes
10/31/24 08:59 Sputum Gram Stain - Final
10/31/24 02:56 Urine Urine Culture - Final
NO GROWTH
--- NOTE | 2024-11-04 08:17 | PN.DE.MGMTRT ---
Insulin Management
- -
11/04/2024: Diabetes Management Follow up
71 year old male admitted with Acute respiratory failure due to Influenza A and CAP. Currently ventilator dependent.
PMH: Asthma/COPD, JOHNNIE, Smoking, 1/2 PPD, HTN, Permanent A-fib/A-flutter, CAD s/p PCI, HLD, Chronic back pain, GERD, Dysphagia, BPH, Nephrolithiasis, Gout
Rheumatoid Arthritis, Occasional ETOH use, T2DM with Neuropathy and Morbid Obesity. Of note, pt was taking Glargine 54 units HS and Humalog 10 units AC. Recent A1C 8.1% o 09/11/24, Cr 1.0, eGFR >60. Pt was intubated and started on IV steroids,
contributing to Hyperglycemia. Unable to provide hx, information obtained from chart review.
Pt extubated 11/03, resting in bed, eyes closed, not responding to questions and unable to discuss diabetes care plan.
Remains on Critical care glycemic protocol, glucose range 154 to 175, requiring 1.7 to 2 units of insulin/hr. Glucose target 140 to 180.
NPO, pulled Dobbhoff tube out, tube feeds discontinued yesterday, will remain NPO until he is cleared for oral intake
Will transition off drip. Give Lantus 20 units NOW. Turn drip off at 2 hrs after giving Lantus
Start Lantus 30 units @ HS, and low corrective insulin Q6 hrs.
Will follow closely and assess for need to adjust insulin.
Discussed with Nurse
Diabetes History
- -
Type of Diabetes: 2 requiring insulin
Pre-Admission Diabetes Regimen
11/04/24
04:13
Creatinine 0.9
Insulin Pump Settings
IP Diabetes Regimen
11/03/24 11/03/24 11/03/24
08:55 10:47 12:32
Glucose
POC Glucose 145 H 162 H 166 H
11/03/24 11/03/24 11/03/24
14:39 16:14 17:30
Glucose
POC Glucose 179 H 189 H 177 H
11/03/24 11/03/24 11/03/24
18:23 19:31 20:31
Glucose
POC Glucose 179 H 192 H 176 H
11/03/24 11/03/24 11/03/24
21:32 22:31 23:30
Glucose
POC Glucose 192 H 183 H 168 H
11/04/24 11/04/24 11/04/24
00:37 02:38 04:13
Glucose 174 H
POC Glucose 173 H 175 H
11/04/24 11/04/24
04:28 06:36
Glucose
POC Glucose 154 H 171 H
Patient Education
[2024-11-04 08:44] LABS: Glucose - Point of Care 151 mg/dl (70-99)
--- NOTE | 2024-11-04 09:10 | PTCARENOTE ---
pt received from previous rn- pt able to say name and where he is, disoriented to time. pt continuously reoriented. pt remains in afib with bbb on amio gtt. insulin gtt continues as per order see flowsheet. pt on 2LNC, frequent productive cough,
oral care provided. pt remains on 1:1 for safety. right radial iron zeroed and functioning. plan of care discussed with Dr. Gayathri hernandez aware of temp 100.5. Speech therapy at bedside. all safety precautions in place.
[2024-11-04] MEDS: FLOMAX TUBE (09:25)
[2024-11-04] MEDS: MIRALAX TUBE (09:25)
[2024-11-04] MEDS: PROSCAR TUBE (09:27)
[2024-11-04] MEDS: XARELTO TUBE (09:27)
[2024-11-04] MEDS: TAMIFLU TUBE (09:27)
[2024-11-04] MEDS: TYLENOL/FEVERALL 650 MG RECTAL ×2 (09:33→15:54)
[2024-11-04] MEDS: STERILE WATER FOR INJECTION 20 ML IV (09:33)
[2024-11-04] MEDS: ROCEPHIN 2000 MG IV (09:34)
--- NOTE | 2024-11-04 09:52 | PTOTSP ---
Speech Therapy Evaluation:
Pt with acute on chronic risk factors of dysphagia (asthma/COPD, CHF, RA, GERD, prolonged intubation). Pt accepted PO trials of ice chips x2 with + oral manipulation. Swallow initiation not palpated in 2/2 trials. Pt with no immediate cough.
Difficult to differentiate delayed cough response from frequent baseline cough. PO trials d/c d/t safety concerns. Risk for aspiration and related complication elevated given tenuous respiratory status, decreased secretion management, weak cough,
and chronic immunosuppression. Pt currently febrile with elevated WBC. CXR with ' patchy opacities within the right upper and left lower lung zones, which may represent pneumonia, subsegmental atelectasis, or alveolar pulmonary edema.'
Recommend:
1. Temporary NPO
2. Medications non-oral
3. Oral care 3x daily
4. Hold aspiration risk hydration protocol due to decreased secretion management and current respiratory status
5. SENIOR TECHNICAL MANAGER to follow to re-evaluate at bedside to determine if appropriate to initiate a diet
[2024-11-04 10:39] LABS: Glucose - Point of Care 187 mg/dl (70-99)
[2024-11-04] MEDS: LANTUS 0.2 UNITS SC (10:51)
--- NOTE | 2024-11-04 11:13 | W.PN.ID1 ---
Date of Service
Date of Service: November 04, 2024
Today's Communication
Can mix suspension with applesauce, give by mouth when safe to do so.
Continue ceftriaxone 2g IV q24h
Assessment / Plan
# Influenza A infection.
# Superimposed group A strep pneumonia
# s/pAcute hypoxemic respiratory failure, extubated 11/03
# s/p Septic shock
# Fever - resolved
# Leukocytosis - stable on steroid
# DEONDRE - resolved
# Afib with RVR
# Multiple antibiotic allergies
# MRSA colonized
- Oseltamivir (dose # 5 of 10 doses), on hold due to npo
Can mix suspension with applesauce, give by mouth when safe to do so.
- blood cx's neg to date
- Core temp 100.7. Repeat bcx pending
- Continue ceftriaxone 2g IV q24h (d6 abx).
-Trend wbc
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
DM2
neuropathy
COPD
Afib hx ablation, cardioversion
CAD s/p stent
HFpEF
RA on MTX, leucovorin, folic acid, 5mg prednisone
HTN
dyslipidemia
sleep apnea on CPAP
nephrolithiasis
Chronic back pain
BPH
Sacral decubitus
class III obesity
bilateral TKR
right SONIA
Spine surgery
hernia repair
esophageal stricture dilation
BLE fracture
Chief Complaint
-: Clinical Sepsis, Pneumonia and Other (Flu)
Subjective / Review of Systems
Extubated yesteday
Vital Signs / Physical Exam
Vital Signs
Vital Signs
Temp Pulse Resp BP Pulse Ox
100.7 F H 112 14 91/55 91
11/04/24 09:30 11/04/24 09:00 11/04/24 09:00 11/03/24 00:00 11/04/24 09:00
Physical Exam
Constitutional: Comfortable and Obese
Cardiovascular: Regular Rate and S1/S2
Pulmonary: Rales (bilateral)
Gastrointestinal: Soft, Non Tender and Non Distended
Genito-Urinary: Negative CVA Tenderness
Extremities: Edema
Neurological: Awake
Psychological: Other (flat affect)
Objective Data
Lab Data
Lab Results
11/04/24 04:13
11/04/24 04:13
PT 17.8 Sec (11.4-14.6) H 11/04/24 04:40
INR 1.44 11/04/24 04:40
APTT 32.9 Sec (23.4-35.0) 11/04/24 04:40
Estimated Creat Clear 94 ml/min 11/04/24 04:13
Lactic Acid 1.7 mmol/L (0.7-2.0) 10/31/24 04:49
Total Bilirubin 0.9 mg/dl (0.2-1.3) 11/04/24 04:13
AST 56 U/L (17-59) 11/04/24 04:13
ALT 57 U/L (0-50) H 11/04/24 04:13
Alkaline Phosphatase 151 U/L (38-126) H 11/04/24 04:13
Most recent labs reviewed.
Micro Results:
11/04/24 10:35 Blood Culture - Pending
Blood/Venous
10/31/24 02:39 Blood Culture - Preliminary
Blood/Venous No Growth in 4 days- Final report to follow
10/31/24 02:39 Blood Culture - Preliminary
Blood/Venous No Growth in 4 days- Final report to follow
10/31/24 08:59 Respiratory Culture - Final
Sputum Streptococcus pyogenes
Gram Stain - Final
10/31/24 02:56 Urine Culture - Final
Urine NO GROWTH
10/31/24 04:00 Legionella Urinary Antigen - Final
Urine Negative for Legionella pneumophila Serogroup 1 antigen.
A negative result does not rule out the possiblity of
Legionella infection due to other serogroups or species of
Legionella. Clinical correlation is recommended.
Streptococcus pneumoniae Antigen (M - Final
Negative for Streptococcus pneumoniae antigen.
A negative result does not exclude infection with
Streptococcus pneumoniae. Clinical correlation is
recommended.
10/30/24 23:23 Influenza Types A & B (YOKASTA) - Final
Nasal Swab Influenza A Positive, NAAT
10/30/24 CXR: Endotracheal tube with tip in trachea above the joseluis and nasogastric tube extending into the abdomen with tip off the image.
10/30/24 CXR: Low lung volumes with crowding of central/vascular markings. No focal consolidation to suggest pneumonia, pneumothorax or pleural effusion.
10/31/24 CT C/A/P: No evidence of pulmonary embolism or thoracic aortic dissection. Mild bibasilar subsegmental atelectasis, otherwise clear lungs. Severe coronary arterial calcification. Please correlate with symptoms of and risk factors for
coronary artery disease, with further workup as clinically appropriate. Findings suggestive of constipation. No evidence of intestinal obstruction or bowel inflammatory process. Scattered pancreatic calcifications suggestive of mild chronic
pancreatitis.
11/02/24 CXR: Small opacities projecting over the mid and lower right lung which may represent atelectasis, however pneumonia could appear similar.
11/04/24 CXR: Mild pulmonary vascular congestion. Patchy opacities within the right upper and left lower lung zones
[2024-11-04 11:35] LABS: Glucose - Point of Care 185 mg/dl (70-99)
--- NOTE | 2024-11-04 11:40 | PTCARENOTE ---
a line removed as per order, pressure dressing c/d/i. plan of care discussed in rounds- IV team consulted for picc. insulin gtt transitioned off per order. Dr. Lindsay at bedside to see patient. pt remains on 1:1. Dr Linares aware of mottling,
remains on 2L. assessment unchanged further.
--- NOTE | 2024-11-04 12:44 | CS.PSYCHR ---
Consult Summary - Psychiatry
-
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
for acute hypoxic respiratory failure secondary to left lower lobe pneumonia a few weeks ago complicated by septic shock requiring massive pressors, acute CHF with preserved EF and acute kidney injury, who [facility] the ED from [facility] with
hypoxic respiratory failure. Pt was unable to give hx, was minimally responsive, reportedly found slumped over in chair at [facility] with low pulse ox. Pt was placed on BiPAP, then intubated due to continued hypoxia. Pt was extubated yesterday,
and reportedly told nursing staff that he 'doesn't want to do this anymore', wants to harm himself. Pt was placed on 1:1 supervision due to safety concerns, has arterial and central lines. Pt made npo after failed swallowing test.
Pt seen, in bed, lethargic, making poor eye contact, not answering, appears to have clouded sensorium, intermittent weak,congested cough.
Psych Hx: none known, unable to obtain info
SH: retired, , lives with dtr- noted to be POA; was at [facility] prior to admission
MSE: awake, but appears clouded, not answering, limited eye contact, lethargic. Slowed, no signs of agitation or psychosis. Affect dysphoric/blunted. Unable to assess mood or thougth content
Imp: Adjustment d/o, with depression, appears to still be sluggish post-extubation, not answering questions this morning
Rec: would continue on 1:1 until able to further assess for SI
Will follow
[2024-11-04 13:11] LABS: B.E. 1.3 mmol/L; HCO3 25.9 mmol/L (21-28); O2 Saturation % 95.8 % (94-98); PCO2 40 mmHg (35-48); PO2 76 mmHg (83-108); pH 7.42 (7.35-7.45)
--- NOTE | 2024-11-04 14:01 | PTCARENOTE ---
Addendum entered by Radha Sweeney RN 11/04/24 14:27:
Dr. Linares aware of HR 120s-130s, diluadid given per order for pain.
Original Note:
abg completed, Dr. Linares at bedside, no further orders at this time.
[2024-11-04] MEDS: DILAUDID 0.5 MG IV (14:23)
--- NOTE | 2024-11-04 15:32 | CM ---
CM following re: discharge planning.
Discussed in rounds, reviewed pt's chart, met with pt and daughter Tiny at bedside.
Per rounds meeting, pt extubated yesterday, on 1:1 due to expressing SI/passive wishes, continue supportive care.
Per daughter a plan is for pt to return back to [facility] to continue on skilled services when medically stable.
D/C plan: return back to [facility] to continue on skilled services when medically stable.
CM will follow with discharge plan updates as hospitalization progresses
--- NOTE | 2024-11-04 16:27 | W.PN.HOSP.TC ---
Today's Communication/Plan
-
iv amio
f/u cultures
monitor fever curve
iv abx
if cannot tolerate diet chikis, will have to place ngt again
advair
off insulin ggt
CPAP qhs and naps
OK for dg
Assessment / Plan
Assessment / Plan
#Acute hypoxic respiratory failure
#Ventilator dependent respiratory failure, extubated 11/03
#Influenza + strep pyogenes pneumonia
�Antibiotics, Tamiflu
� Extubated 11/03
� Pulmonary on board
� Wean O2, O2 goal greater than 2%
#Septic shock, shock resolved 11/02
� Continue antibiotics�continue ceftriaxone 2 g IV every 24 hours
� Recurrent febrile episodes
� Repeat blood cultures
� ID consulted
� Can mix Tamiflu suspension with applesauce once tolerating p.o.
� Holding antihypertensives
#Paroxysmal atrial fibrillation
-Status post DCCV x 2; nonvalvular; Home regimen includes Xarelto and metoprolol succinate
�If cannot tolerate Xarelto due to speech eval, will have to switch to heparin drip
� Continue amiodarone drip for now while n.p.o.
-Plan to resume metoprolol when hemodynamics allow
-Continue with HR goal <120 with critical illness
-Monitor on telemetry here
#Depression
-suicidal ideation
-pscyh consulted
-1-1
#Asthma
#JOHNNIE
-Patient with BiPAP dependent respiratory failure
-Home regimen includes Advair for maintenance, DuoNebs as needed
-Restart advair
-Auto-CPAP at home
-f/u Pulm outpt (Dr. Palomares)
#HFpEF
-Last echocardiogram with preserved LVEF, dilated RV though unable to assess RV systole
-Suspect that this is predominant RV failure with group 3 pulmonary hypertension due to COPD/JOHNNIE
-Home regimen includes bumetanide 1 mg daily; not on GDMT
-Holding diuretics for now
#CAD s/p PCI
-Home medications include atorvastatin, metoprolol, and ACEi; not on antiplatelet but is on Xarelto
-Unknown when stent was placed or which coronary it was placed in
-Holding beta-lj due to circulatory shock, remains on Xarelto
#Rheumatoid arthritis
-Home medications include methotrexate and prednisone 5 mg daily
-No known complications of CAD or ILD
-Holding methotrexate, continued on steroid
-No signs of flare
#T2DM with neuropathy
-switch to Subq insulin - was on insulin ggt
-Medications also include gabapentin 900 mg 3 times daily for his neuropathy
#BPH
-Home regimen includes tamsulosin and finasteride
-Currently with Wallace catheter in place for strict I's and O's
-Will perform TOV prior to discharge
DVT prophylaxis: Home Xarelto - will switch to hep ggt if continued npo
GI : pulledout ngt - may need to replace if fails speech again
Diet: Tube feeds with Jevity 1.5
CODE STATUS: Currently full code, family to reconsider based on progression over next day or two
Anticipated Discharge: Within 24 hours
Subjective/Interval History
-
Date of Service: November 04, 2024
Monitor verbal, extubated yesterday, reigns on nasal cannula. Insulin drip off
Objective Data
-
Labs:
Laboratory Results
11/04/24 11/04/24 11/04/24
04:13 04:40 12:56
WBC 15.6 H
Hgb 10.7 L
Hct 32.5 L
Plt Count 200 D
PT Cancelled 17.8 H
INR Cancelled 1.44
APTT Cancelled 32.9
HCO3 25.9
Sodium 135
Potassium 4.0
Chloride 98
Carbon Dioxide 29
BUN 32 H
Creatinine 0.9
Glucose 174 H
Calcium 8.4
Total Bilirubin 0.9
AST 56
ALT 57 H
Alkaline Phosphatase 151 H
Vital Signs:
Vital Signs
Temp Pulse Resp BP Pulse Ox
100.4 F H 113 19 116/47 92
11/04/24 16:10 11/04/24 16:00 11/04/24 16:00 11/04/24 16:00 11/04/24 16:00
I&O
11/03/24 11/04/24 11/05/24
06:59 06:59 06:59
Intake Total 1344.5 / 1362.9 196.8 / 196.8
Output Total 4595 / 4655 485 / 485
Balance -3250.5 / -3292.1 -288.2 / -288.2
Review of Systems
-
History Source: Patient
All other systems: Not reviewed unless documented
Physical Exam
-
General: Well Developed, Comfortable and Morbidly Obese
HEENT: Normocephalic, Atraumatic and Moist Mucous Membranes
Respiratory: Rhonchi and Non Labored Respirations; Negative Accessory Resp Muscle Use
Cardiac: Regular Rhythm and S1/S2; Negative Murmur, Rub or Gallop
GI: Soft, Nontender, Nondistended and Normal Bowel Sounds
Genito-urinary: Clear Urine and Wallace
Musculoskeletal: No Clubbing, No Cyanosis and No Edema
Skin: Warm and Dry; Negative Rash
Neuro: Awake, Alert and Nonfocal/Grossly Intact
Psych: Calm
Data Reviewed
-
Labs: Labs Reviewed by me and Discussed with Patient
[2024-11-04] MEDS: CORDARONE 518 MG IV (16:32)
[2024-11-04] MEDS: NOVOLOG FLEXPEN-MODERATE RESISTANCE 5 UNITS SC (17:35)
[2024-11-04 17:45] LABS: Glucose - Point of Care 285 mg/dl (70-99)
--- NOTE | 2024-11-04 18:09 | PTCARENOTE ---
left IJ removed by IV team RN, pressure dressing c/d/i. right picc flushes with good blood return- amio continues. assessment unchanged
[2024-11-04] MEDS: ADVAIR HFA 230/21 MCG INHALER 2 PUFF INH (19:38)
--- NOTE | 2024-11-04 19:55 | PTCARENOTE ---
downgraded to IMU level of care, 1:1 continues, remains withdrawn. full assessment as documented. pt with large loose BM. CHG bath, oral care, and collado care provided. on 2L NC. amio gtt continues. care ongoing.
[2024-11-04] MEDS: TAMIFLU PO (19:57)
--- NOTE | 2024-11-04 20:36 | PTCARENOTE ---
house [employer] notified of afib with sustained HR 120-140s along with temp of 101.2. ok to continue monitoring HR for now, dose of ofirmev ordered. care ongoing
[2024-11-04] MEDS: OFIRMEV 100 IV (20:40)
[2024-11-04] MEDS: LANTUS 0.3 UNITS SC (21:30)
--- NOTE | 2024-11-04 22:41 | PTCARENOTE ---
pt pulling off cpap consistently, refusing education about keeping it on overnight. placed back on 2L n[place]
[2024-11-05] VITALS (45 sets, daily range): BP systolic 70–154; BP diastolic 54–112; PULSE 113; BMI 41.2
[2024-11-05] MEDS: NOVOLOG FLEXPEN-HIGH RESISTANCE 7 UNITS SC ×2 (00:01→05:39)
[2024-11-05 00:05] LABS: Glucose - Point of Care 285 mg/dl (70-99)
[2024-11-05] MEDS: TYLENOL/FEVERALL 650 MG RECTAL ×2 (02:10→08:07)
[2024-11-05] MEDS: MORPHINE SULFATE 2 MG IV ×3 (03:04→15:54)
[2024-11-05 04:02] LABS: Hematocrit 34.2 % (39.0-52.0); Hemoglobin 11.3 g/dL (13.0-18.0); Mean Corpuscular Hgb 31.2 pg (27.0-31.0); Mean Corpuscular Volume 94.5 fL (80.0-94.0); Mean Platelet Volume 11.1 fL (7.4-10.4); Platelet Count 238 10^3/uL (130-400); Red Blood Cell Count 3.62 10^6/uL (4.70-6.10); Red Cell Dist. Width 18.5 % (11.5-14.5); White Blood Cell Count 13.7 10^3/uL (4.8-10.8)
[2024-11-05 04:27] LABS: ALT (SGPT) 45 U/L (0-50); AST (SGOT) 36 U/L (17-59); Albumin 3.3 g/dl (3.5-5.0); Alkaline Phosphatase 146 U/L (38-126); Blood Urea Nitrogen 35 mg/dl (9-20); Calcium 8.8 mg/dl (8.4-10.2); Carbon Dioxide 28 mmol/L (22-30); Chloride 100 mmol/L (98-107); Estimated Creatinine Clearance 94 ml/min; Glucose 268 mg/dl (70-99); Magnesium 2.3 mg/dl (1.6-2.3); Phosphorus 3.3 mg/dl (2.5-4.5); Sodium 139 mmol/L (135-145); Total Bilirubin 1.1 mg/dl (0.2-1.3); Total Protein 7.1 g/dl (6.3-8.2); eGFR > 60.00
[2024-11-05 04:34] LABS: NT-proBNP 20200 pg/ml
--- NOTE | 2024-11-05 04:37 | PTCARENOTE ---
AM labs sent. pt with slight increase WOB overnight, c/o pain, unable to locate where. house ORDNANCE KEEPER aware, PRN morphine given. temp remains elevated, MD tylenol given. care ongoing
[2024-11-05] MEDS: DUONEB 3 ML INH (07:14)
[2024-11-05] MEDS: ADVAIR HFA 230/21 MCG INHALER 2 PUFF INH ×2 (07:15→19:22)
[2024-11-05] MEDS: MIRALAX TUBE (07:18)
[2024-11-05] MEDS: SOLU-MEDROL PF 20 MG IV (08:07)
[2024-11-05] MEDS: NSS (PRESERVATIVE FREE) 10 ML IV (08:07)
[2024-11-05] MEDS: PROTONIX IV 40 MG IV (08:07)
--- NOTE | 2024-11-05 08:14 | PN.DE.MGMTRT ---
Insulin Management
- -
11/05/2024: Diabetes Management Follow up
71 year old male admitted with Acute respiratory failure due to Influenza A and CAP. Currently ventilator dependent.
PMH: Asthma/COPD, JOHNNIE, Smoking, 1/2 PPD, HTN, Permanent A-fib/A-flutter, CAD s/p PCI, HLD, Chronic back pain, GERD, Dysphagia, BPH, Nephrolithiasis, Gout
Rheumatoid Arthritis, Occasional ETOH use, T2DM with Neuropathy and Morbid Obesity. Of note, pt was taking Glargine 60 units HS and Humalog 12 units AC. Recent A1C 8.1% 09/11/24, Cr 1.0, eGFR >60. Pt was intubated and started on IV steroids,
contributing to Hyperglycemia. Unable to provide hx, information obtained from chart review.
Pt extubated 11/03, resting in bed, eyes closed, not responding to questions and unable to discuss diabetes care plan. NPO
Patient transitioned from glycemic protocol insulin infusion 11/04 with lantus 30 units @ hs and low corrective insulin. He remains NPO.
Glucose range 185 to 285. Received lantus @ hs, fasting this AM 268. TT to Dr. Patel, will start glycemic protocol
Will follow closely and assess for readiness to transition to subcutaneous insulin
Discussed with Nurse
Diabetes History
- -
Type of Diabetes: 2 requiring insulin
Pre-Admission Diabetes Regimen
11/05/24
03:47
Creatinine 0.9
Insulin Pump Settings
IP Diabetes Regimen
11/04/24 11/04/24 11/04/24
08:32 10:27 11:24
Glucose
POC Glucose 151 H 187 H 185 H
11/04/24 11/04/24 11/05/24
17:34 23:54 03:47
Glucose 268 H
POC Glucose 285 H 285 H
Patient Education
--- NOTE | 2024-11-05 08:19 | W.PN.PUL3 ---
Today's Communication / Plan
-
ABx per ID for worsening bilateral PNA
Tamiflu x 5-10 days
Continue Start Advair
Continue nebulized bronchodilators, but change DuoNebs to Xopenex + Atrovent due to A-fib with RVR; continue DuoNebs prn for assistance with mucus expectoration
Insert NGT and start mucinex
Aspiration precautions
Weaned off insulin drip on 11/04, but due to hyperglycemia he will go back on insulin gtt today
Maintain SpO2 >90-94%
CPAP with sleep --> refused last night
Currently is NPO as he failed ETHNOGRAPHER
Psych consulted on 11/04 due to suicidal ideation; continue 1:1
Final Inspector services will continue to follow along for this critically ill patient. If patient survives this hospitalization, he should follow up with our office with Dr. Palomares (last visit 04/17/2024)
Assessment
-
79-year-old gentleman with known history of JOHNNIE, noncompliant with nightly CPAP, morbid obesity, heart failure with preserved ejection fraction, developed respiratory distress at [facility] facility. Reportedly his roommate also had
respiratory symptoms. Patient tested positive for influenza A. In the emergency room he was hypoxic and hypotensive and was initially tried on BiPAP with suboptimal response. Patient was subsequently intubated and admitted to ICU. Patient
required pressor support for hypotension and was noted to be hypovolemic on initial admission and responded well to IV fluids.
#1. Acute hypoxic respiratory failure in the setting of influenza A infection with superimposed right sided multifocal pneumonia, suspected aspiration component
-Patient's respiratory failure is multifactorial. This is a morbidly obese gentleman who was supposed to be on nightly CPAP for JOHNNIE who in addition has heart failure with preserved ejection fraction and recently likely contracted influenza A which
led to further respiratory decompensation. He failed BiPAP in the emergency room
-Strep pyogenes noted in the sputum on 10/31/2024 in addition to influenza A on 10/30/2024
-Patient was extubated on 11/03/2024 --> now on nasal cannula at 2-3 L/min, saturating 94%
-Antibiotics per infectious disease service, currently on ceftriaxone and Tamiflu --> ID will likely change antibiotics today given fever since yesterday with worsening bilateral PNA seen on CT chest today
-Patient on chronic prednisone therapy for rheumatoid arthritis, getting IV steroids with Solu-Medrol 20 daily --> transition back to PO once he can take PO meds (currently high aspiration risk)
#2. Shock, suspect septic shock - shock state resolved since 11/02/2024
-Follow-up on blood cultures (collected 11/04 as well as 10/31/2024, which shows NGTD)
-Maintain MAP >65
-Procalcitonin elevated (although did have DEONDRE at the time)
-Lactate normalized as of 10/31
-Strep pyogenes noted on sputum culture from 10/31/2024
-Defer antibiotics to ID
#3. Diabetes mellitus II (uncontrolled � HbA1c: 8.1 on 09/11/2024)
-Weaned off insulin drip on 11/04/2024 --> currently on basal�bolus insulin SQ dosing --> BG has been >250 so will likely need to go back on insulin gtt
-Still off tube feeds as patient pulled out his NGT after extubation on 11/03
#4. History of asthma, morbid obesity and JOHNNIE on auto-CPAP at home
-Currently patient is not wheezing and is breathing comfortably on 3 L/min nasal cannula
-No hypercapnia seen on blood gases this admission
-Presentation not suggestive of COPD exacerbation
-Was previously on Advair 250mcg at home --> continue Advair here while hospitalized; change BID DuoNebs to xopenex and atrovent given his tachycardia; continue prn DuoNebs
-Continue with CPAP with sleep; outpatient follow-up with Dr. Palomares (last visit 04/17/2024)
-Patient ripped off his BiPAP mask overnight on 11/04 - 11/05/2024, and refused to put back on
#5. History of coronary artery disease status post PCI
-Troponin peaked at 0.035 on 10/30/2024 � no longer need to continue trending at this time
#6. Heart failure with preserved ejection fraction (EF 55-60%, RV poorly visualized on ECHO in 08/2024)
-Presentation earlier this admission did not appear to be related to volume overload --> patient looked hypovolemic on initial presentation as per Dr. Adams
-S/p 2 L bolus in the emergency room, followed by another 500 mL bolus after arrival to ICU
-Monitor strict I/O; trend UOP and BNP
-Lasix 40 mg IVP X1 given on 11/03/2024 --> CXR from today shows mild pulmonary vascular congestion
#7. Paroxysmal atrial fibrillation; rate was controlled on 11/04 and now back in RVR
-Continue amiodarone gtt
- Start q6hr lopressor; will insert NGT and start metoprolol tartrate 12.5mg BID
-Continue Xarelto for anticoagulation --> unfortunately patient failed his ETHNOGRAPHER evaluation; insert NGT and start xarelto, otherwise he will need heparin drip vs LMWH; he still remains too high an aspiration tisk to take anything by mouth
#8. History of rheumatoid arthritis with chronic prednisone use
-Continue Solu-Medrol 20 daily while patient is NPO and dose can be decreased back to home dose of prednisone once patient can safely swallow
-If his hypoxia +/- SOB worsens then we will start hydrocortisone at 50 mg IV q6 hours for severe CAP
#9. Suicidal ideation
-Patient said that he wanted to and RN appreciated suicidal ideation
-Psychiatry consulted on 11/04 --> recs appreciated
-Continue 1:1
DVT prophylaxis: HSQ while NPO for meds --> once NGT in place then resume xarelto
GI Prophylaxis: PPI (home med)
Lines: Removed A-line on 11/04
Nutrition: ETHNOGRAPHER following; NPO for now; pt pulled out NGT --> will replace NGT now, and will consider starting trickle TF tomorrow as CT A/P showed dilated bowel loops with suspected ileus; no SBO suspected, hence no need for bowel decompression at
this time
Once patient is discharged, he should continue following up with our office with Dr. Palomares (last visit 04/17/2024)
Patient will be upgraded back to the ICU to start insulin drip. Also patient appears clinically worse today with more lethargy, and now A-fib and RVR
- Continue ICU level care for this critically ill patient.
[facility] after a lower extremity fracture due to a fall. He has been non-weight bearing up until about 10 days ago. The patient's roommate was coughing and brought to the hospital about 2 weeks ago.
He was supposed to come home this past weekend, but unfortunately has been hospitalized. He has been living with his daughter for last 2 years - she used to live in [place] and moved up here to [place] to have her dad move in with her. He was up to
walking about 100 yards over the last 2 weeks. She would like to continue full medical management.
Critical care statement: A total of 38 minutes of critical care time was provided for this patient today. This includes management of unstable vital signs, evaluation of the patient at bedside, reviewing the patient's pertinent medical records
including radiographs, microbiology, laboratory evaluations, and discussion with primary team, consultants, pharmacy, nutrition, physical therapy, case management, charge nurse, critical care nursing, and respiratory therapy.
Subjective Data
-
Date of Service:
Date of Service: November 05, 2024
Chief Complaint: Pulmonary Follow Up
Subjective:
Patient was seen and evaluated this morning. Febrile since yesterday with Tmax overnight 102.8 �F patient tachycardic this morning with heart rate 135, BP 133/97 and saturating 94% on 3 L/min. Currently on amiodarone drip at 0.5 mg/min. He is
awake, but moaning. Not responding to my questions, similar to yesterday, although more lethargic today. EKG shows A-fib.
Review of Systems
General: Other (Unobtainable - patient noncommunicative; appears lethargic/confused)
Objective Data
Data Reviewed
Vital Signs / I&O / Oxygen:
Vital Signs
Temp Pulse Resp BP Pulse Ox
102.8 F H 137 24 144/98 95
11/05/24 07:36 11/05/24 07:27 11/05/24 07:27 11/05/24 06:00 11/05/24 07:27
Intake and Output
11/04/24 11/05/24 11/06/24
06:59 06:59 06:59
Intake Total 1344.5 / 1362.9 530.6 / 547.3 33.4 / 33.4
Output Total 4595 / 4655 1205 / 1265 120 / 120
Balance -3250.5 / -3292.1 -674.4 / -717.7 -86.6 / -86.6
SaO2 [A/C] 98
SaO2 95
Nasal Cannula flow liters per 4
minute
Physical Exam
General: Respiratory Distress (negative) and Chills (negative)
HEENT: Normocephalic and Anicteric
Cardiovascular: Irregular Rhythm (Irregularly irregular), Rub (negative), Peripheral Edema (negative) and Other (Tachycardic)
Respiratory: Wheeze (Warrick upon expiration bilaterally), Crackles (negative), Rhonchi (negative) and Stridor (negative)
GI: Soft, Distended, Non Tender and Normal Bowel Sounds
Neurology: Tremors (negative) and Lethargic (Good eye contact but not answering my questions)
Skin: Dry, Cyanosis (In the distal lower extremities) and Other (Cool lower extremities)
Labs/Micro/Reports
Lab Data
11/05/24 03:47
11/05/24 03:47
Laboratory Results
11/04/24
12:56
pH 7.42
pCO2 40
pO2 76 L
HCO3 25.9
O2 Delivery Level
Microbiology
10/31/24 02:39 Blood/Venous Blood Culture - Final
No Growth - Final Report
10/31/24 02:39 Blood/Venous Blood Culture - Final
No Growth - Final Report
10/31/24 08:59 Sputum Respiratory Culture - Final
Streptococcus pyogenes
10/31/24 08:59 Sputum Gram Stain - Final
[2024-11-05 08:27] LABS: Venous Blood Gas B.E. 5.3 mmol/L (-4 to +4); Venous Blood Gas HCO3 29.9 mmol/L (22-27); Venous Blood Gas O2 Sat % 84.3 %; Venous Blood Gas pCO2 43 mmHg (35-48); Venous Blood Gas pH 7.45 (7.32-7.43); Venous Blood Gas pO2 57 mmHg (30-50)
[2024-11-05] MEDS: STERILE WATER FOR INJECTION 20 ML IV (09:18)
[2024-11-05] MEDS: ROCEPHIN 2000 MG IV (09:18)
[2024-11-05] MEDS: CARDIZEM 10 MG IV (09:18)
[2024-11-05] MEDS: LASIX 40 MG IV (09:18)
--- NOTE | 2024-11-05 09:30 | PTCARENOTE ---
pt received this am-opens eyes spontaneously, moans to stimulation, does not follow any commands febrile with temp 103. Dr. Linares and Dr. Patel aware- labs sent, ct completed, see mar for all medications given. md aware pt lungs coarse on
auscultation, pt tachypneic and hr 140s in afib- ekg completed and wrosening mottling. collado draining yellow urine. pt remains in afib with bbb on 3LNC. all safety precautions in place, remains on 1:1. Dr. Patel aware of inability to give po
meds. Dr. Linares ordered to wait for ct results for enteral access.
[2024-11-05] MEDS: LAC HYDRIN, AM LACTIN LOTION 1 APPLIC TOPICAL (09:49)
[2024-11-05] MEDS: FLOMAX TUBE (09:56)
[2024-11-05] MEDS: PROSCAR TUBE (09:56)
[2024-11-05] MEDS: TAMIFLU PO (09:56)
[2024-11-05] MEDS: XARELTO TUBE (09:56)
[2024-11-05] MEDS: LOPRESSOR 5 MG IV (10:00)
--- NOTE | 2024-11-05 10:05 | PTCARENOTE ---
Addendum entered by Radha Sweeney RN 11/05/24 10:07:
Dr. Patel aware of inability to give po meds. Dr. Linares ordered to wait for ct results for enteral access.
Original Note:
pt received this am-opens eyes spontaneously, moans to stimulation, does not follow any commands febrile with temp 103. Dr. Linares and Dr. Patel aware- labs sent, ct completed, see mar for all medications given. aware pt lungs coarse on
auscultation, pt tachypneic and hr 140s in afib- ekg completed. collado draining yellow urine. pt remains in afib with bbb on 3LNC. all safety precautions in place, remains on 1:1.
--- NOTE | 2024-11-05 11:17 | W.PN.ID1 ---
Date of Service
Date of Service: November 05, 2024
Today's Communication
See below
Assessment / Plan
# Recurrence of fever
# Leukocytosis - trending down
- Repeat bcx x 1 neg to date.
- 11/05/24 CT c/a/p patchy lung opacity; diffuse gaseous distention of colon, elongation and tortuous colon.
- Agree with NGT placement and repeat CT a/p with oral contrast.
- Ordered another 2 sets of blood cx's
- Ordered COVID Antigen
- Diarrhea: agree check for C. diff. Also check norovirus PCR.
- Broaden ceftriaxone to meropenem and IV Vancomycin
- Follow temps.
# Influenza A infection present on admission.
- Oseltamivir (dose # 5 of 10 doses), on hold due to npo
- Can mix suspension with applesauce, give by mouth when safe to do so.
- Agree with enteral access placement.
# Superimposed group A strep pneumonia
# s/pAcute hypoxemic respiratory failure, extubated 11/03
-Currently on day 7 effective IV abx.
# s/p Septic shock
# DEONDRE - resolved
# Afib with RVR
# Multiple antibiotic allergies
# MRSA colonized
- blood cx's neg to date
- Continue ceftriaxone 2g IV q24h (d6 abx).
-Trend wbc
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
DM2
neuropathy
COPD
Afib hx ablation, cardioversion
CAD s/p stent
HFpEF
RA on MTX, leucovorin, folic acid, 5mg prednisone
HTN
dyslipidemia
sleep apnea on CPAP
nephrolithiasis
Chronic back pain
BPH
Sacral decubitus
class III obesity
bilateral TKR
right SONIA
Spine surgery
hernia repair
esophageal stricture dilation
BLE fracture
Chief Complaint
-: Fever, Clinical Sepsis, Pneumonia and Other (Flu)
Subjective / Review of Systems
Not very interactive
Vital Signs / Physical Exam
Vital Signs
Vital Signs
Temp Pulse Resp BP Pulse Ox
102.8 F H 134 27 100/65 94
11/05/24 07:36 11/05/24 10:00 11/05/24 10:00 11/05/24 10:00 11/05/24 10:00
Physical Exam
Constitutional: Acutely Ill and Obese
Eyes: Negative Sclera Anicteric
Cardiovascular: Irregular Rate and S1/S2
Pulmonary: Other (Anterior lungs clear)
Gastrointestinal: Soft, Non Tender and Non Distended
Genito-Urinary: Wallace and Clear Urine
Extremities: Edema
Neurological: Other (lethargic); Negative Meningeal Signs
Objective Data
Lab Data
Lab Results
11/05/24 03:47
11/05/24 03:47
PT 17.8 Sec (11.4-14.6) H 11/04/24 04:40
INR 1.44 11/04/24 04:40
APTT 32.9 Sec (23.4-35.0) 11/04/24 04:40
Estimated Creat Clear 94 ml/min 11/05/24 03:47
Lactic Acid 1.7 mmol/L (0.7-2.0) 10/31/24 04:49
Total Bilirubin 1.1 mg/dl (0.2-1.3) 11/05/24 03:47
AST 36 U/L (17-59) 11/05/24 03:47
ALT 45 U/L (0-50) 11/05/24 03:47
Alkaline Phosphatase 146 U/L (38-126) H 11/05/24 03:47
Most recent labs reviewed.
Micro Results:
11/04/24 10:35 Blood Culture - Preliminary
Blood/Venous No Growth in 24 hours- Final report to follow
10/31/24 02:39 Blood Culture - Final
Blood/Venous No Growth - Final Report
10/31/24 02:39 Blood Culture - Final
Blood/Venous No Growth - Final Report
10/31/24 08:59 Respiratory Culture - Final
Sputum Streptococcus pyogenes
Gram Stain - Final
10/31/24 02:56 Urine Culture - Final
Urine NO GROWTH
10/31/24 04:00 Legionella Urinary Antigen - Final
Urine Negative for Legionella pneumophila Serogroup 1 antigen.
A negative result does not rule out the possiblity of
Legionella infection due to other serogroups or species of
Legionella. Clinical correlation is recommended.
Streptococcus pneumoniae Antigen (M - Final
Negative for Streptococcus pneumoniae antigen.
A negative result does not exclude infection with
Streptococcus pneumoniae. Clinical correlation is
recommended.
10/30/24 23:23 Influenza Types A & B (YOKASTA) - Final
Nasal Swab Influenza A Positive, NAAT
10/30/24 CXR: Endotracheal tube with tip in trachea above the joseluis and nasogastric tube extending into the abdomen with tip off the image.
10/30/24 CXR: Low lung volumes with crowding of central/vascular markings. No focal consolidation to suggest pneumonia, pneumothorax or pleural effusion.
10/31/24 CT C/A/P: No evidence of pulmonary embolism or thoracic aortic dissection. Mild bibasilar subsegmental atelectasis, otherwise clear lungs. Severe coronary arterial calcification. Please correlate with symptoms of and risk factors for
coronary artery disease, with further workup as clinically appropriate. Findings suggestive of constipation. No evidence of intestinal obstruction or bowel inflammatory process. Scattered pancreatic calcifications suggestive of mild chronic
pancreatitis.
11/02/24 CXR: Small opacities projecting over the mid and lower right lung which may represent atelectasis, however pneumonia could appear similar.
11/04/24 CXR: Mild pulmonary vascular congestion. Patchy opacities within the right upper and left lower lung zones
11/05/24 CT C/A/P: Patchy parenchymal opacity within both lungs, increasing from prior CT, and most likely pneumonia. Moderate diffuse gaseous distention of the colon. There is also elongation and tortuosity of the colon. Air is present within
nondilated loops of small bowel. No evidence for free intraperitoneal air.
Care Review
Plan reviewed with: Physician (Dr. Patel)
[2024-11-05] MEDS: TORADOL 15 MG IV (11:20)
[2024-11-05 11:36] LABS: Glucose - Point of Care 307 mg/dl (70-99)
[2024-11-05 13:03] LABS: Glucose - Point of Care 324 mg/dl (70-99)
[2024-11-05] MEDS: NOVOLIN R INSULIN INFUSION 100 IV ×2 (13:14→20:21)
[2024-11-05] MEDS: NOVOLIN R 6 UNITS IV (13:14)
[2024-11-05] MEDS: OFIRMEV 100 IV (13:16)
[2024-11-05] MEDS: STERILE WATER FOR INJECTION 10 ML IV ×2 (13:36→19:10)
[2024-11-05] MEDS: LOPRESSOR 10 MG IV (13:36)
[2024-11-05] MEDS: MERREM 500 MG IV ×2 (13:36→19:09)
--- NOTE | 2024-11-05 13:54 | PTCARENOTE ---
pt remains lethargic- arouses to stimulation and tactile, still not following commands. pt temp 104- dr. shannon aware- ofirmev given and placed on cooling blanket. pt started on glycemic protocol per order. pt HR in 140s- see oct.
[2024-11-05 14:07] LABS: Glucose - Point of Care 313 mg/dl (70-99)
--- NOTE | 2024-11-05 14:12 | PTCARENOTE ---
right nare francis placed by Dr Linares at 65cm- confirmed by xray- ok to use per .
[2024-11-05 14:35] LABS: COVID-19 Antigen Negative (Negative)
--- NOTE | 2024-11-05 14:39 | PTCARENOTE ---
right ovie francis placed by Dr Linares at 70cm- confirmed by xray- ok to use per .
[2024-11-05 14:41] LABS: Glucose - Point of Care 306 mg/dl (70-99)
[2024-11-05] MEDS: XARELTO 20 MG TUBE (14:41)
[2024-11-05] MEDS: TAMIFLU 75 MG PO (14:41)
--- NOTE | 2024-11-05 14:49 | PTCARENOTE ---
Dr. Diaz aware of only being able to obtain 1 set of bc. insulin and amio continues. pt remains on cooling blanket.
--- NOTE | 2024-11-05 14:58 | W.PN.HOSP.TC ---
Today's Communication/Plan
-
iv lasix
broaden abx
control afib, may need to add additional regimen
NGT
need to follow up with abd imaging
Assessment / Plan
Assessment / Plan
#Acute hypoxic respiratory failure
#Ventilator dependent respiratory failure, extubated 11/03
#Influenza + strep pyogenes pneumonia
# CT imaging appears worse
�Antibiotics, Tamiflu
-Switch to Meropenem, Linezolid
� Extubated 11/03
� Pulmonary on board
� Wean O2, O2 goal greater than 2%
� BiPAP at night, daughter is bringing in his own NIV
-NGT in place, continue tamiflu
#Septic shock, shock resolved 11/02
� Continue antibiotics�continue ceftriaxone 2 g IV every 24 hours
� Recurrent febrile episodes
� Repeat blood cultures
� ID consulted
� Can mix Tamiflu suspension with applesauce once tolerating p.o.
� Holding antihypertensives
- Diarrhea - F/u Norovirus, CDiff
- Imaging with Moderate diffuse gaseous distention of the colon. There is also elongation and tortuosity of the colon. May need to obtain further imaging although at this time, abd grossly non distended
#Paroxysmal atrial fibrillation
-Status post DCCV x 2; nonvalvular; Home regimen includes Xarelto and metoprolol succinate
�NGT back in, resume xarelto
� Continue amiodarone drip for now while n.p.o.
-Add IV lopressor
-Continue with HR goal <120 with critical illness
-Monitor on telemetry here
#Depression
-suicidal ideation
-pscyh consulted
-1-1
#Asthma
#JOHNNIE
-Patient with BiPAP dependent respiratory failure
-Home regimen includes Advair for maintenance, DuoNebs as needed
-Restart advair
-Auto-CPAP at home
-f/u Pulm outpt (Dr. Palomares)
#Acute HFpEF
-Last echocardiogram with preserved LVEF, dilated RV though unable to assess RV systole
-BNP 20,000
-Repeat ECHO
-IV lasix
- Suspect that this is predominant RV failure with group 3 pulmonary hypertension due to COPD/JOHNNIE
-Home regimen includes bumetanide 1 mg daily; not on GDMT
-Holding diuretics for now
#CAD s/p PCI
-Home medications include atorvastatin, metoprolol, and ACEi; not on antiplatelet but is on Xarelto
-Unknown when stent was placed or which coronary it was placed in
-Holding beta-lj due to circulatory shock, remains on Xarelto
#Rheumatoid arthritis
-Home medications include methotrexate and prednisone 5 mg daily
-No known complications of CAD or ILD
-Holding methotrexate, continued on steroid
-No signs of flare
#T2DM with neuropathy
- insulin ggt
-Medications also include gabapentin 900 mg 3 times daily for his neuropathy
#BPH
-Home regimen includes tamsulosin and finasteride
-Currently with Wallace catheter in place for strict I's and O's
-Will perform TOV prior to discharge
DVT prophylaxis: Home Xarelto -
GI : pulled out ngt - may need to replace if fails speech again
Diet: Tube feeds with Jevity 1.5 - holding
CODE STATUS: Currently full code, family to reconsider based on progression over next day or two
Total time spent on today's encounter was 51 minutes which included time spent in counseling the patient/family regarding diagnosis and treatment plan as listed above, goals of care, and symptom management. Case was discussed with nursing staff,
specialists, and care coordinators/case management. All labs and imaging personally reviewed by me. Remainder the time spent in detailed review of previous records, lab data, imaging, and other medical provider documentation.
Anticipated Discharge: Within 24 hours
Subjective/Interval History
-
Date of Service: November 05, 2024
Still persistently febrile
Continues to be lethargic, mostly nonverbal
Crackles auscultated
Persistently hyperglycemic
Objective Data
-
Labs:
Laboratory Results
11/05/24
03:47
WBC 13.7 H
Hgb 11.3 L
Hct 34.2 L
Plt Count 238
Sodium 139
Potassium 5.0
Chloride 100
Carbon Dioxide 28
BUN 35 H
Creatinine 0.9
Glucose 268 H
Calcium 8.8
Total Bilirubin 1.1
AST 36
ALT 45
Alkaline Phosphatase 146 H
Vital Signs:
Vital Signs
Temp Pulse Resp BP Pulse Ox
103.6 F H 125 31 128/84 96
11/05/24 14:53 11/05/24 13:30 11/05/24 13:30 11/05/24 13:30 11/05/24 13:30
I&O
11/04/24 11/05/24 11/06/24
06:59 06:59 06:59
Intake Total 1344.5 / 1362.9 530.6 / 547.3 116.9 / 116.9
Output Total 4595 / 4655 1205 / 1265 800 / 800
Balance -3250.5 / -3292.1 -674.4 / -717.7 -683.1 / -683.1
Review of Systems
-
History Source: Patient
All other systems: Not reviewed unless documented
Physical Exam
-
General: Well Developed, Comfortable and Morbidly Obese
HEENT: Normocephalic, Atraumatic and Moist Mucous Membranes
Respiratory: Rhonchi and Non Labored Respirations; Negative Accessory Resp Muscle Use
Cardiac: Regular Rhythm and S1/S2; Negative Murmur, Rub or Gallop
GI: Soft, Nontender, Nondistended and Normal Bowel Sounds
Genito-urinary: Clear Urine and Wallace
Musculoskeletal: No Clubbing, No Cyanosis and No Edema
Skin: Warm and Dry; Negative Rash
Neuro: Awake, Alert and Nonfocal/Grossly Intact
Psych: Calm
Data Reviewed
-
Labs: Labs Reviewed by me and Discussed with Patient
--- NOTE | 2024-11-05 15:11 | CM ---
CM following re: discharge planning.
Discussed in rounds, reviewed pt's chart, met with pt .
Per daughter a plan is for pt to return back to [facility] to continue on skilled services when medically stable.
Updated clinical faxed to [facility] for a review.
D/C plan: return back to [facility] to continue on skilled services when medically stable.
CM will follow with discharge plan updates as hospitalization progresses
--- NOTE | 2024-11-05 15:16 | W.PN.UPDATE ---
Update Note
Progress Note Update
Pt seen, reviewed with nursing. Pt increasingly lethargic, with elevated temp. Nursing reports he has not been responsive today, only moans, does not follow commands. Pt lying in bed with mouth open, Dobhoff tube in place. Pt remains on 1:1 due
to reported suicidal statements on 11/03. Pt has not been communicative since then.
Imp: Adjustment d/o, with depression. Unable to assess due to lethargy/delirium
Rec: would continue on 1:1 until able to further assess for SI
Will follow
[2024-11-05 15:30] LABS: Glucose - Point of Care 286 mg/dl (70-99)
[2024-11-05] MEDS: ZYVOX 600 MG 300 IV (16:37)
[2024-11-05 16:44] LABS: Glucose - Point of Care 240 mg/dl (70-99)
--- NOTE | 2024-11-05 16:46 | PTCARENOTE ---
assessment unchanged. pt turned and repositioned, oral care provided.
--- NOTE | 2024-11-05 16:51 | PN.CDI ---
CDI
- -
CDI:
Physician Documentation Request
Admit Date: 10/31/24 03:38
Dear Doctor Amanda,
Please review the following and provide your response in the progress notes.
Clinical Indicators:
Pt admitted with septic shock 2/2 Influenza A/Bacterial PNA / Acute Hypoxic respiratory Failure
Pt care note 11/04 @ 2241,' pt pulling off cpap consistently, refusing education about keeping it on overnight. placed back on 2L n[place]..'
Pt care note 11/05@0930,'pt received this am-opens eyes spontaneously, moans to stimulation, does not follow any commands febrile with temp 103. Dr. Shannon and Dr. Patel aware- labs sent, ct completed, see mar for all medications given. md
aware pt lungs coarse on auscultation, pt tachypneic and hr 140s in afib- ekg completed and worsening mottling....remains on 1:1. Dr. Patel aware of inability to give po meds...'
Pt care note 11/05@1354,' pt remains lethargic- arouses to stimulation and tactile, still not following commands. pt temp 104- dr. shannon aware- ofirmev given and placed on cooling blanket....'
Progress note 11/05,' Still persistently febrile Continues to be lethargic, mostly nonverbal..'
Based on the above, could you clarify in the Progress Notes and Discharge Summary which, if any of the following, is the most likely etiology of the confusion/altered mental status.
Toxic Metabolic Encephalopathy/Acute Delirium
Acute Delirium only
Other ( please specify)
Use of terms such as suspected, likely, concern for, or probable (associated with a specific diagnosis that is being evaluated, monitored, or treated as if it exists) are acceptable and can be coded in the inpatient setting, when documented at the
time of discharge.
Thank you,
Cherelle Deras RN
CDI Specialist
[place] [facility]
Please use your independent medical judgment in providing your response.
[2024-11-05 17:43] LABS: Glucose - Point of Care 214 mg/dl (70-99)
--- NOTE | 2024-11-05 17:45 | PTCARENOTE ---
plan of care discused with Dr. Linares- see orders. pt turned and repositioned. assessment unchanged further
[2024-11-05] MEDS: LOPRESSOR IV (18:19)
[2024-11-05] MEDS: TYLENOL ORAL SOLUTION 650 MG TUBE (18:19)
[2024-11-05 18:32] LABS: Glucose - Point of Care 174 mg/dl (70-99)
[2024-11-05] MEDS: CORDARONE 518 MG IV (19:10)
[2024-11-05] MEDS: XOPENEX 1.25 MG INHALANT SOLUTION INH (19:22)
[2024-11-05] MEDS: ATROVENT NEBULES 0.5 MG INH (19:22)
[2024-11-05] MEDS: SODIUM CHLORIDE 3% FOR INHALATION 1 VIAL INH (19:23)
[2024-11-05] MEDS: ULTRAM 25 MG PO (19:27)
[2024-11-05 19:44] LABS: Glucose - Point of Care 128 mg/dl (70-99)
[2024-11-05 20:39] LABS: Glucose - Point of Care 126 mg/dl (70-99)
--- NOTE | 2024-11-05 20:45 | PTCARENOTE ---
Received patient oriented to self and able to say he is in the hospital. Answering yes/no questions appropriately, drowsy, occasionally moaning. Weak hand grasps b/l. Afib 100s with a bundle branch block, BP soft, 80s-90s/50s-60s. 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
above 65. Core temp 99.5, cooling blanket off. Palpable pedal and radial pulses b/l. On 4 liters nasal cannula, lung sounds coarse, scattered crackles. Moist, productive cough. Right nare DHT at 70 cm. Abdomen round, obese, hypoactive bowel sounds.
Wallace in place for critical I&Os, draining yellow/cody urine. Heel foams intact, healed stage 3 on sacrum. Right DL PICC and MODESTO PIV patent, WNL. Amiodarone and insulin gtt ongoing per protocol. Hourly rounding and patient safety checks ongoing.
[2024-11-05 21:41] LABS: Glucose - Point of Care 122 mg/dl (70-99)
[2024-11-05 22:37] LABS: Glucose - Point of Care 81 mg/dl (70-99)
[2024-11-05 23:38] LABS: Glucose - Point of Care 95 mg/dl (70-99)
[2024-11-06] VITALS (38 sets, daily range): BP systolic 88–125; BP diastolic 51–96; PULSE 113–125; O2SAT 96–98; BMI 40.5
[2024-11-06] MEDS: LOPRESSOR IV ×2 (00:05→07:00)
--- NOTE | 2024-11-06 00:30 | PTCARENOTE ---
Patient assessment unchanged from previous, 1:1 ongoing.
[2024-11-06 00:38] LABS: Glucose - Point of Care 136 mg/dl (70-99)
[2024-11-06 01:42] LABS: Glucose - Point of Care 144 mg/dl (70-99)
[2024-11-06 02:39] LABS: Glucose - Point of Care 158 mg/dl (70-99)
[2024-11-06] MEDS: MORPHINE SULFATE 2 MG IV ×2 (02:39→06:41)
[2024-11-06] MEDS: MERREM 500 MG IV ×4 (03:18→19:16)
[2024-11-06] MEDS: STERILE WATER FOR INJECTION 10 ML IV ×4 (03:19→19:16)
[2024-11-06 03:39] LABS: Hematocrit 33.3 % (39.0-52.0); Hemoglobin 10.9 g/dL (13.0-18.0); Mean Corp Hgb Conc. 32.7 g/dL (33.0-37.0); Mean Corpuscular Hgb 31.2 pg (27.0-31.0); Mean Corpuscular Volume 95.4 fL (80.0-94.0); Mean Platelet Volume 11.2 fL (7.4-10.4); Platelet Count 248 10^3/uL (130-400); Red Blood Cell Count 3.49 10^6/uL (4.70-6.10); Red Cell Dist. Width 18.7 % (11.5-14.5); White Blood Cell Count 14.1 10^3/uL (4.8-10.8)
[2024-11-06 03:41] LABS: Venous Blood Gas B.E. 0.2 mmol/L (-4 to +4); Venous Blood Gas pCO2 46 mmHg (35-48); Venous Blood Gas pH 7.36 (7.32-7.43); Venous Blood Gas pO2 79 mmHg (30-50)
[2024-11-06 03:45] LABS: Venous Blood Gas O2 Therapy NC
[2024-11-06 04:01] LABS: ALT (SGPT) 67 U/L (0-50); AST (SGOT) 72 U/L (17-59); Albumin 3.1 g/dl (3.5-5.0); Alkaline Phosphatase 124 U/L (38-126); Blood Urea Nitrogen 50 mg/dl (9-20); Calcium 8.5 mg/dl (8.4-10.2); Carbon Dioxide 25 mmol/L (22-30); Chloride 101 mmol/L (98-107); Estimated Creatinine Clearance 85 ml/min; Glucose 207 mg/dl (70-99); Potassium 4.4 mmol/L (3.5-5.1); Sodium 140 mmol/L (135-145); Total Bilirubin 1.1 mg/dl (0.2-1.3); Total Protein 7.1 g/dl (6.3-8.2); Triglycerides 157 mg/dl (10-149); eGFR > 60.00
[2024-11-06 04:38] LABS: Vancomycin Random < 5.0 ug/ml
[2024-11-06 04:39] LABS: Glucose - Point of Care 187 mg/dl (70-99)
--- NOTE | 2024-11-06 04:50 | PTCARENOTE ---
CHG bath done, labs sent. Repositioned. Hourly rounding and patient safety checks ongoing.
[2024-11-06] MEDS: ZYVOX 600 MG 300 IV ×2 (05:16→17:34)
[2024-11-06 05:37] LABS: Glucose - Point of Care 193 mg/dl (70-99)
[2024-11-06 06:33] LABS: Glucose - Point of Care 210 mg/dl (70-99)
[2024-11-06 07:41] LABS: Glucose - Point of Care 233 mg/dl (70-99)
[2024-11-06] MEDS: ADVAIR HFA 230/21 MCG INHALER 2 PUFF INH (07:49)
[2024-11-06] MEDS: ATROVENT NEBULES 0.5 MG INH (07:49)
[2024-11-06] MEDS: XOPENEX 1.25 MG INHALANT SOLUTION INH ×2 (07:50→19:08)
[2024-11-06] MEDS: SODIUM CHLORIDE 3% FOR INHALATION 1 VIAL INH (07:50)
--- NOTE | 2024-11-06 08:10 | W.PN.INTV ---
Today's Communication / Plan
Recommendations
ABx per ID for worsening bilateral PNA
Tamiflu x 5-10 days
Continue Advair
Continue nebulized bronchodilators with Xopenex + Atrovent + DuoNebs prn for assistance with mucus expectoration
Start mucinex
Start low dose BB as he takes toprol-XL at home and part of his tachycardia may be beta-lj withdrawal in addition to reflection of his critical illness
Aspiration precautions
Weaned off insulin drip on 11/04, but due to hyperglycemia, insulin drip was resumed on 11/05 --> continue this for now
Transition back to his home dose of prednisone and stop Solu-Medrol
Maintain SpO2 >90-94%
CPAP with sleep --> only tolerated for 1-2 hours last night
Currently is NPO as he failed FIRE TOWER KEEPER --> resume tube feeds today
Psych consulted on 11/04 due to suicidal ideation; continue 1:1
Continue ICU level care for this critically ill patient
Assessment
-
79-year-old gentleman with known history of JOHNNIE, noncompliant with nightly CPAP, morbid obesity, heart failure with preserved ejection fraction, developed respiratory distress at shelter facility. Reportedly his roommate also had
respiratory symptoms. Patient tested positive for influenza A. In the emergency room he was hypoxic and hypotensive and was initially tried on BiPAP with suboptimal response. Patient was subsequently intubated and admitted to ICU. Patient
required pressor support for hypotension and was noted to be hypovolemic on initial admission and responded well to IV fluids.
#1. Acute hypoxic respiratory failure in the setting of influenza A infection with superimposed right sided multifocal pneumonia
-Patient's respiratory failure is multifactorial. This is a morbidly obese gentleman who was supposed to be on nightly CPAP for JOHNNIE who in addition has acute decompensated heart failure and recently contracted influenza A which led to further
respiratory decompensation. He failed BiPAP in the emergency room
-Since being here in the ICU, he has had worsening bilateral PNA, and was upgraded back to ICU from IMU level of care on 11/05/2024
-Strep pyogenes noted in the sputum on 10/31/2024 in addition to influenza A on 10/30/2024
-Patient was extubated on 11/03/2024 --> now on nasal cannula at 2 L/min, saturating 95%
-Antibiotics per infectious disease service, currently on meropenem s/p rocephin and Tamiflu --> ID changed ABx on 11/05 given fever since the day prior with worsening bilateral PNA seen on CT chest today
-Patient on chronic prednisone therapy for rheumatoid arthritis, getting IV steroids with Solu-Medrol 20 daily --> transition back to PO prednisone now that he has NGT in place
#2. Shock, suspect septic shock - shock state resolved since 11/02/2024
-Follow-up on blood cultures (collected on 11/04 as well as 10/31/2024, which shows NGTD)
-Maintain MAP >65
-Procalcitonin elevated (although did have DEONDRE at the time)
-Lactate normalized as of 10/31
-Strep pyogenes noted on sputum culture from 10/31/2024
-Defer antibiotics to ID
#3. Diabetes mellitus II (uncontrolled � HbA1c: 8.1 on 09/11/2024)
-Weaned off insulin drip on 11/04/2024 onto basal�bolus insulin SQ dosing --> BG was >250 so insulin gtt resumed on 11/05
-Now off tube feeds as patient pulled out his NGT after extubation on 11/03 --> will resume tube feeds today
#4. History of asthma, morbid obesity and JOHNNIE on auto-CPAP at home
-Currently patient is not wheezing and is breathing comfortably on 2 L/min nasal cannula
-No hypercapnia seen on blood gases this admission
-Presentation not suggestive of COPD exacerbation
-Was previously on Advair 250mcg at home --> continue Advair here while hospitalized with donna Corley
-Continue with CPAP with sleep; outpatient follow-up with Dr. Palomares (last visit 04/17/2024) --> he only tolerated about 1-2 hours last night (11/05-11/06)
-Patient ripped off his CPAP mask overnight on 11/04 - 11/05/2024, and refused to put back on
#5. History of coronary artery disease status post PCI
-Troponin peaked at 0.035 on 10/30/2024 � no longer need to continue trending at this time
#6. Acute heart failure with reduced ejection fraction (LVEF 25-30% with dilated IVC per TTE from 11/05/2024; previousy his EF was 55-60% + RV poorly visualized on ECHO in 08/2024)
-Presentation earlier this admission did not appear to be related to volume overload --> patient looked hypovolemic on initial presentation as per Dr. Adams
-S/p 2 L bolus in the emergency room, followed by another 500 mL bolus after arrival to ICU
-Monitor strict I/O; trend UOP and BNP
-Lasix 40 mg IVP X1 given on 11/03/2024 --> CXR from 11/05 shows mild pulmonary vascular congestion
-Transthoracic echo from 11/05/2024 shows acutely reduced LVEF at 25-30% with dilated IVC without respiratory variation � start diuresis and monitor I/O+ UOP
#7. Paroxysmal atrial fibrillation, rate is normal
-Continue amiodarone gtt
- Pt takes toprol-XL at home --> start low dose metoprolol tartrate as BP can tolerated, as part of his tachycardia may be BB-withdrawal
-Continue Xarelto for anticoagulation via NGT
#8. History of rheumatoid arthritis with chronic prednisone use
-Continue systemic steroids --> resume home prednisone dose now that he has NGT in place
#9. Suicidal ideation
-Patient said that he wanted to and RN appreciated suicidal ideation
-Consult psychiatry
-Continue 1:1
DVT prophylaxis: Xarelto
GI Prophylaxis: PPI (home med)
Nutrition: FIRE TOWER KEEPER following; NPO for now; start tube feeds today and monitor for intolerance (i.e. worsening abd distension, nausea, vomiting)
Discussion with daughter with Dr. Linares � 11/05/2024:
He has been at a [facility] ([facility]) since after a lower extremity fracture due to a fall. He has been non-weight bearing up until about 10 days ago. The patient's roommate was coughing and brought to the hospital about 2 weeks ago.
He was supposed to come home this past weekend, but unfortunately has been hospitalized. He has been living with his daughter for last 2 years - she used to live in [place] and moved up here to [place] to have her dad move in with her. He was up to
walking about 100 yards over the last 2 weeks. She would like to continue full medical management.
Continue ICU level care for this critically ill patient
Critical care statement: A total of 40 minutes of critical care time was provided for this patient today. This includes management of unstable vital signs, evaluation of the patient at bedside, reviewing the patient's pertinent medical records
including radiographs, microbiology, laboratory evaluations, and discussion with primary team, consultants, pharmacy, nutrition, physical therapy, case management, charge nurse, critical care nursing, and respiratory therapy.
Subjective Dataa
Subjective Data
Date of Service:
Date of Service: November 06, 2024
Chief Complaint: Desk Assistant Follow Up
Subjective:
Patient seen and evaluated this AM. Currently remains on amnio drip at 0.5mg/min and insulin drip at 5 units/hr. HR 108, SpO2 97% on 2L/min, and BP 93/63. He is more awake and alert this AM - responding to some of my questions. Failed FIRE TOWER KEEPER eval
again this AM. No fevers overnight. Bringing up phlegm, but not bringing up much phlegm after the nebulized 3%.
Review of Systems
General: Other (Unobtainable - confusion/AMS)
Objective Data
Data Reviewed
Vital Signs / I&O / Oxygen:
Vital Signs
Temp Pulse Resp BP Pulse Ox
99 F 113 18 98/80 97
11/06/24 07:30 11/06/24 09:01 11/06/24 09:00 11/06/24 09:01 11/06/24 09:00
Intake and Output
11/05/24 11/06/24 11/07/24
06:59 06:59 06:59
Intake Total 530.6 / 547.3 1199.8 / 1222.5 75.1 / 75.1
Output Total 1205 / 1265 1285 / 1325 120 / 120
Balance -674.4 / -717.7 -85.2 / -102.5 -44.9 / -44.9
SaO2 [A/C] 98
SaO2 97
Nasal Cannula flow liters per 4
minute
Physical Exam
General: Respiratory Distress (n), Comfortable, Chills (n) and Sweats (n)
HEENT: Normocephalic, Anicteric and Other (thick neck)
Cardiovascular: S1-S2, Rub (n), Peripheral Edema (Trace LE edema bilaterally) and Cool Extremities
Respiratory: Clear, Wheeze (expiration bilaterally (R>L)), Crackles (bilaterally), Rhonchi (n), Non-Labored Respirations and Stridor (n)
GI: Soft, Distended (abdominal obesity), Non Tender and Normal Bowel Sounds
Neurology: Awake, Tremors (n) and Other (more talkative today although remains confused; repetitive with his words (i.e., yes or no))
Skin: Dry, Jaundice (n) and Other (Mottled/cool lower extremities)
Labs/Micro/Reports
Lab Data
11/06/24 03:26
11/06/24 03:26
Microbiology
11/04/24 10:35 Blood/Venous Blood Culture - Preliminary
No Growth in 24 hours- Final report to follow
10/31/24 02:39 Blood/Venous Blood Culture - Final
No Growth - Final Report
10/31/24 02:39 Blood/Venous Blood Culture - Final
No Growth - Final Report
--- NOTE | 2024-11-06 08:15 | PN.DE.MGMTRT ---
Insulin Management
- -
11/06/2024: Diabetes Management Follow up
71 year old male admitted with Acute respiratory failure due to Influenza A and CAP. Currently ventilator dependent.
PMH: Asthma/COPD, JOHNNIE, Smoking, 1/2 PPD, HTN, Permanent A-fib/A-flutter, CAD s/p PCI, HLD, Chronic back pain, GERD, Dysphagia, BPH, Nephrolithiasis, Gout
Rheumatoid Arthritis, Occasional ETOH use, T2DM with Neuropathy and Morbid Obesity. Of note, pt was taking Glargine 60 units HS and Humalog 12 units AC. Recent A1C 8.1% 09/11/24, Cr 1.0, eGFR >60. Pt was intubated and started on IV steroids,
contributing to Hyperglycemia. Unable to provide hx, information obtained from chart review.
Pt critically ill, resting in bed, eyes closed, not responding to questions and unable to discuss diabetes care plan. NPO
Patient transitioned from glycemic protocol insulin infusion 11/04 with lantus 30 units @ hs and low corrective insulin. He remains NPO.
Glycemic protocol insulin infusion started @ 1pm for glucose 313, received up to 12 units of insulin per hour. At 10pm glucose 81, drip off. 3AM glucose 207, 4AM glucose 187, drip restarted @ 3 units per hour. Current glucose 233 insulin infusion
@ 9 units per hour.
Will follow closely and assess for readiness to transition to subcutaneous insulin
Discussed with Nurse
Diabetes History
- -
Type of Diabetes: 2 requiring insulin
Pre-Admission Diabetes Regimen
11/06/24
03:26
Creatinine 1.0
Lab Results
Hemoglobin A1c Cancelled 11/05/24 10:24
Insulin Pump Settings
IP Diabetes Regimen
11/05/24 11/05/24 11/05/24
12:51 13:55
Glucose
POC Glucose 307 H 324 H 313 H
11/05/24 11/05/24 11/05/24
14:31 15:19 16:32
Glucose
POC Glucose 306 H 286 H 240 H
11/05/24 11/05/24 11/05/24
17:31 18:21 19:33
Glucose
POC Glucose 214 H 174 H 128 H
11/05/24 11/05/24 11/05/24
20:28 21:30 22:25
Glucose
POC Glucose 126 H 122 H 81
11/05/24 11/06/24 11/06/24
23:27 00:27 01:31
Glucose
POC Glucose 95 136 H 144 H
11/06/24 11/06/24 11/06/24
02:27 03:26 04:26
Glucose 207 H
POC Glucose 158 H 187 H
11/06/24 11/06/24 11/06/24
05:25 06:22 07:29
Glucose
POC Glucose 193 H 210 H 233 H
Meal type: Breakfast
Patient Education
[2024-11-06 08:39] LABS: Glucose - Point of Care 205 mg/dl (70-99)
[2024-11-06] MEDS: SOLU-MEDROL PF 20 MG IV (08:56)
[2024-11-06] MEDS: PROSCAR 5 MG TUBE (08:58)
[2024-11-06] MEDS: ULTRAM 25 MG PO ×2 (08:58→20:37)
[2024-11-06] MEDS: FLOMAX 0.4 MG TUBE (08:58)
[2024-11-06] MEDS: XARELTO 20 MG TUBE (08:58)
[2024-11-06] MEDS: PROTONIX IV 40 MG IV (09:00)
[2024-11-06] MEDS: MIRALAX 17 GRAMS TUBE (09:00)
[2024-11-06] MEDS: NSS (PRESERVATIVE FREE) 10 ML IV (09:00)
--- NOTE | 2024-11-06 09:00 | PTCARENOTE ---
Assumed care of patient at 0700. Patient drowsy. Easily arousable. Flat/withdrawn. Slow to respond. Stating he is at '[facility]'. Afib with BBB on tele. Rate in the 100-110's. Amio gtt infusing through RDL PICC. Professional Golf Tournament Player at bedside.
Discussed hypotension overnight. Plan to dc IV Lopressor. +1 anasarca. Palpable pulses. Pulse ox mid to high 90's on 2L nc. Moist, productive cough. Coarse/rhonchi throughout with scattered crackles. +BS. Right nare DHT for meds. Rodrigo in place for
critical I/O. GP continued. 1:1 supervision for SI. Safe environment maintained.
[2024-11-06] MEDS: LASIX 40 MG IV ×2 (09:01→16:10)
--- NOTE | 2024-11-06 09:11 | CON.CAR ---
Addendum entered and electronically signed by Mile Oquendo MD 11/06/24 12:48:
I saw and examined the patient.
The COLLEGE ARCHIVIST's note was reviewed and I agree with the note.
Comment: 79-year-old with a history of what seems to be permanent atrial fibrillation on Xarelto, right bundle branch block, diabetes and CAD prior PCI, rheumatoid on immunosuppressive therapy here with severe course of influenza and strep pyogenes
pneumonia. Echocardiogram performed yesterday showed EF is now declined to 25 to 30% which is new from comparison of echo in August. He has been successfully extubated but has an altered mental status. He cannot provide a history. On exam he
has an irregularly irregular tachycardic rate with no murmur rubs or gallops, lungs exam with diffuse rhonchi anteriorly could not get him to let me listen posteriorly, trace bilateral lower extremity edema. Review of CT scan shows extensive
pulmonary infiltrate bilaterally on my review of images. Echo as above. We are asked to follow-up for new cardiomyopathy. Clearly, his current tenuous medical status is due to his influenza and pneumonia. Ongoing care per medicine and
armature tester. His atrial fibrillation has a rapid ventricular response but he is already on IV amiodarone which we will continue. If needed would use p.o. metoprolol but rates are reasonable given the degree of illness. Ultimately, we will
hopefully be able to assess his cardiomyopathy. This would likely warrant catheterization should he recover. Additional GDMT will be added as able but right now blood pressure precludes more agents. He did receive a dose of Lasix this morning,
will monitor response.
Thank you for this consultation we will follow.
Original Note:
Consultation
Consultation Request
Date/Time Consultation Requested: 11/06/24804
Date/Time Consultation Performed: 11/06/24909
Requesting Provider: Dr. Patel
Performing Provider: Shelley MCCAULEY for Dr. Oquendo
Reason for Consultation: cardiomyopathy, AFIB
Medical History
-
Chief Complaint: hypoxia
History of Present Illness:
79 y/o male with persistent AFIB (hx ablation) on Xarelto, hypertension, RBBB, severe obesity, JOHNNIE on CPAP, DM2 on insulin, CAD with hx PCI to LAD, and RA on immunosuppressive therapy who is here from [place] after (per chart) he was found slumped in
chair and hypoxic. He was intubated in ER. He is flu positive and with strep pyrogenes PNA. he is treated with Tamiflu and abx. Fluids were given and he required pressors for septic shock. DEONDRE and hyperkalemia were noted. Fevers as high as 104 noted
here. He is off pressors and extubated. He remains on amiodarone drip for AFIB with RVR in the setting of acute illness. Echo done this admit shows EF is reduced (details below). He denies any CP. He is on [facility] by [facility]. He is in no distress at the time
of my assessment.
Past Medical History
Past Medical History: Arrhythmias, CAD, HTN, NIDDM and Other (as above)
Social History
Living: Shelter
Family History
Family History: Reviewed & Not Pertinent
Allergies / Home Medications
Allergy/AdvReac Type Severity Reaction Status Date / Time
anakinra Allergy Unknown Unknown Verified 10/30/24 23:45
levofloxacin [From Levaquin] Allergy Unknown Unknown Verified 10/30/24 23:45
alprazolam [From Xanax] Allergy [facility], SOB Verified 10/30/24 23:45
amoxicillin [From Augmentin] Allergy Unknown Verified 10/30/24 23:45
celecoxib [From Celebrex] Allergy hives, SOB Verified 10/30/24 23:45
cisapride [From Propulsid] Allergy Unknown Verified 10/30/24 23:45
clarithromycin [From Biaxin] Allergy SOB, hives Verified 10/30/24 23:45
clavulanic acid Allergy Unknown Verified 10/30/24 23:45
[From Augmentin]
clindamycin HCl Allergy Hives, SOB Verified 10/30/24 23:45
[From Cleocin]
codeine Allergy Unknown Verified 10/30/24 23:45
famotidine [From Pepcid] Allergy hives SOB Verified 10/30/24 23:45
hydrocodone [From Vicodin] Allergy Unknown Verified 10/30/24 23:45
hydroxychloroquine sulfate Allergy hives, SOB Verified 10/30/24 23:45
[From Plaquenil]
Iodinated Contrast Media Allergy Hives Verified 10/30/24 23:45
Penicillins Allergy Hives Verified 10/30/24 23:45
potassium Allergy Unknown Verified 10/30/24 23:45
Sulfa (Sulfonamide Allergy Unknown Verified 10/30/24 23:45
Antibiotics)
�Medication �Instructions �Recorded �Confirmed �Type
prednisone 5 mg tablet 5 mg PO DAILY RA 12/23/14 11/04/24 History
tamsulosin 0.4 mg capsule 0.4 mg PO DAILY Urinary Issue 12/23/14 11/04/24 History
allopurinol 100 mg tablet 100 mg PO DAILY Gout 07/01/19 11/04/24 History
atorvastatin 40 mg tablet (Lipitor) 40 mg PO HS High Cholesterol 07/01/19 11/04/24 History
finasteride 5 mg tablet 5 mg PO DAILY Urinary Issue 07/22/19 11/04/24 History
omega-3 acid ethyl esters 1 gram 1 gm PO TID Supplement 07/22/19 11/04/24 History
capsule (Lovaza)
insulin glargine 100 unit/mL 60 unit SQ HS Diabetes 12/03/20 11/04/24 History
subcutaneous solution (Lantus
U-100 Insulin)
leucovorin calcium 10 mg tablet 10 mg PO DAILY rheumatoid arthritis 04/17/23 11/04/24 History
bumetanide 1 mg tablet 1 mg PO DAILY Fluid 06/05/24 11/04/24 History
Retention/Swelling
duloxetine 60 mg capsule,delayed 60 mg PO DAILY Depression 06/05/24 11/04/24 History
release
fluticasone 250 mcg-salmeterol 50 1 inh inhalation R BID 06/05/24 11/04/24 History
mcg/dose blistr powdr for Lung/Breathing Issues
inhalation (Advair Diskus)
methenamine hippurate 1 gram tablet 1 g PO BID prophylaxis 06/05/24 11/04/24 History
nortriptyline 50 mg capsule 50 mg PO DAILY Depression 06/05/24 11/04/24 History
metoprolol succinate 50 mg 50 mg PO BID #60 tabs 06/11/24 11/04/24 Rx
tablet,extended release 24 hr
acetaminophen 325 mg tablet 650 mg PO Q6HPRN PRN mild 09/10/24 11/04/24 History
pain/temp>100
ammonium lactate 12 % lotion 1 applic topical QPM B/L lower legs 09/10/24 11/04/24 History
ascorbic acid (vitamin C) 500 mg 500 mg PO DAILY Supplement 09/10/24 11/04/24 History
tablet (Vitamin C)
bisacodyl 10 mg rectal suppository 10 mg DE DAILYPRN PRN 09/10/24 11/04/24 History
constipation, mom ineffective
fluticasone propionate 50 2 spray intranasal BID Allergies 09/10/24 11/04/24 History
mcg/actuation nasal
spray,suspension
guaifenesin 400 mg tablet 1,200 mg PO BID Congestion 09/10/24 11/04/24 History
ipratropium 0.5 mg-albuterol 3 mg 3 ml inhalation R BID 09/10/24 11/04/24 History
(2.5 mg base)/3 mL nebulization Lung/Breathing Issues
soln
magnesium hydroxide 400 mg/5 mL 30 ml PO [id number] PRN no bm x3 days 09/10/24 11/04/24 History
oral suspension (Milk of Magnesia)
methotrexate sodium 25 mg/mL 25 mg SC SA RA 09/10/24 11/04/24 History
injection solution
omeprazole 20 mg capsule,delayed 20 mg PO DAILY Gastrointestinal 09/10/24 11/04/24 History
release Issue
rivaroxaban 20 mg tablet (Xarelto) 20 mg PO DAILY Blood Clot 09/10/24 11/04/24 History
Prevention/Tx
therapeutic multivitamin 1 tab PO DAILY Supplement 09/10/24 11/04/24 History
gabapentin 800 mg tablet 900 mg (1.125 x 800 mg) PO TID 09/17/24 11/04/24 Rx
(Neurontin) Neurological Condition #0 tabs
oxycodone 5 mg tablet 5 mg PO Q4HPRN PRN moderate pain 09/17/24 11/04/24 Rx
#14 tabs
Lactobac no.2-Bifidobac no.1-S. 2 cap PO DAILY Supplement 11/04/24 11/04/24 History
thermo 112.5 billion cell capsule
(Visbiome)
benzocaine 15 mg-menthol 2.6 mg 1 inderjit PO Q4HPRN PRN sore throat 11/04/24 11/04/24 History
lozenges
clotrimazole 1 % topical cream 1 applic topical BID groin 11/04/24 11/04/24 History
insulin lispro 100 unit/mL 12 unit SC AC Diabetes 11/04/24 11/04/24 History
subcutaneous pen
lisinopril 5 mg tablet 5 mg PO DAILY Blood Pressure 11/04/24 11/04/24 History
loperamide 2 mg tablet 2 mg PO Q6HPRN PRN diarrhea 11/04/24 11/04/24 History
nystatin 100,000 unit/gram topical 1 applic topical BID groin, abd 11/04/24 11/04/24 History
powder folds
potassium chloride 20 mEq 20 meq PO DAILY Electrolyte 11/04/24 11/04/24 History
tablet,extended release Repletion
Review of Systems
-
History Source: Patient and Other (and chart)
Constitutional: Fever
Respiratory: Trouble Breathing
Physical Exam
Vital Signs
Temp Pulse Resp BP Pulse Ox
99 F 113 18 98/80 97
11/06/24 07:30 11/06/24 09:01 11/06/24 09:00 11/06/24 09:01 11/06/24 09:00
Lab Results
11/06/24 03:26
11/06/24 03:26
Troponin I 0.030 ng/ml 10/31/24 02:56
Ekq-X-Jkpcqalzfxd Pept 54874 pg/ml 11/05/24 03:47
Physical Exam
General: Well Developed and No Apparent Distress
HEENT: Normocephalic and Anicteric
Respiratory: Crackles, Rhonchi and Other (on O2 by [place])
Cardiac: Irregular Rhythm
Musculoskeletal: Edema (trace BLE)
Neuro: Awake and Alert
Psych: Calm
Impression / Plan
-
Flu A:
-received Tamiflu
PNA, strep pyrogenes:
-on ABX and ID is following
AFIB with RVR: persistent (vs permanent)
-fast rates in setting of acute illness with sepsis
-continue IV amiodarone, which requires intensive monitoring
-he does not feel it
-BP has been low, so has not been able to get his BB. Will stop IV BB. Can add metoprolol tartrate to crush take via tube if needed.
-continue Xarelto
Qboqw-cq-cjujbpt HFrEF:
-EF previously preserved, but now reduced as below
-weight is down, but BNP up and s/p fluids and diuretic held, and crackles to b/l lung bases- agree with IV lasix as tolerated, which requires intensive monitoring
CAD with hx stenting:
-on Xarelto, statin as OP
-denies any CP
Cardiomyopathy, type unknown:
-in setting of septic shock/acute illness, but also known CAD with hx LAD stenting
-Echo 11/06/24: Severely reduced left ventricular systolic function. Left ventricular ejection fraction is 25-30% by visual assessment. The basal leo are best preserved, but all leo are hypokinetic. The IVC is dilated and does not demonstrate
normal respiratory variation. Compared to the prior 09/11/24, the ejection fraction was previously normal is now 25-30%.
-not appropriate for ischemic eval at this time (acute infectious illness, no CP or ischemic EKG changes). Cannot add GDMT right now due to acute infectious illness with BP limitations. Assess for these things as he recovers.
Data Reviewed
-
EKG: Tracing Personally Visualized and interpreted (AFIB with RBBB, RVR)
Radiology: Report Reviewed by me (CXR: patchy parenchymal opacities involving both lungs, increasing when comparing to recent radiographs. Pattern is most suggestive of bilateral pneumonia.)
Medical Tests (Nuc Med, Echo etc): Report Reviewed by me (echo as noted)
Labs: Labs Reviewed by me
[2024-11-06 09:21] LABS: Glycohemoglobin (HgbA1c) 8.6 % (4.0-5.6)
[2024-11-06] MEDS: LAC HYDRIN, AM LACTIN LOTION 1 APPLIC TOPICAL (09:24)
[2024-11-06] MEDS: LASIX IV (09:24)
[2024-11-06 09:53] LABS: Glucose - Point of Care 149 mg/dl (70-99)
[2024-11-06 10:39] LABS: Glucose - Point of Care 139 mg/dl (70-99)
[2024-11-06 11:37] LABS: Glucose - Point of Care 124 mg/dl (70-99)
--- NOTE | 2024-11-06 12:00 | PTCARENOTE ---
PCT covering 1:1 reported patient sitting calmly when he pulled out DHT and stated he does not want it. Sole Assessor notified. Plan to place anouther DHT and start TFs. Patient incontinent of large liquid, brown BM. Stool sample sent for
cdiff/norovirus. Patient washed and repositioned. No other changes.
--- NOTE | 2024-11-06 12:39 | W.PN.ID1 ---
Addendum entered and electronically signed by Jania Diaz MD 11/06/24 13:13:
Nurse reports patient just had large liquid BM. Re-ordered stool for C. diff and norovirus.
Original Note:
Date of Service
Date of Service: November 06, 2024
Today's Communication
Continue linezolid, meropenem, oseltamivir.
Assessment / Plan
# Recurrence of fever- trending down
# Leukocytosis, on steroid
# Suspect aspiration pneumonia
# MRSA colonized
# Multiple antibiotic allergies
- Repeat bcx x 2 neg to date. Repeat COVID neg.
- 11/05/24 CT c/a/p patchy lung opacity; diffuse gaseous distention of colon, elongation and tortuous colon.
-No further Diarrhea: cancel C. diff and norovirus PCR.
- Continue linezolid/meropenem (d2)
- Follow temps/wbc
# Influenza A infection present on admission.
-Vaccinated status
- Oseltamivir (dose # 5 of 10 doses), intermittent interruptions due to npo/loss of enteral access
- NGT re-inserted. Resume oseltamivir 75mg bid
# Superimposed group A strep pneumonia, present on admission
# s/pAcute hypoxemic respiratory failure, extubated 11/03
-Currently on day 8 effective abx
## Afib with RVR
# s/p Septic shock
# DEONDRE - resolved
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
DM2
neuropathy
COPD
Afib hx ablation, cardioversion
CAD s/p stent
HFpEF
RA on MTX, leucovorin, folic acid, 5mg prednisone
HTN
dyslipidemia
sleep apnea on CPAP
nephrolithiasis
Chronic back pain
BPH
Sacral decubitus
class III obesity
bilateral TKR
right SONIA
Spine surgery
hernia repair
esophageal stricture dilation
BLE fracture
Chief Complaint
-: Fever, Clinical Sepsis, Pneumonia and Other (Flu)
Subjective / Review of Systems
Awake but doesn't answer my questions. Kept saying 'no'.
Vital Signs / Physical Exam
Vital Signs
Vital Signs
Temp Pulse Resp BP Pulse Ox
99.8 F 122 21 120/90 93
11/06/24 11:27 11/06/24 12:00 11/06/24 12:00 11/06/24 12:00 11/06/24 12:00
Physical Exam
Constitutional: Acutely Ill
Eyes: No Conjunctival Hemorrhage and Sclera Anicteric
Cardiovascular: Irregular Rate and Other (tachycardic)
Pulmonary: Rhonchi (anterior chest)
Gastrointestinal: Soft, Non Tender and Non Distended
Extremities: Other (cool feet); Negative Edema
Neurological: Other (lethargic)
Objective Data
Lab Data
Lab Results
11/06/24 03:26
11/06/24 03:26
PT 17.8 Sec (11.4-14.6) H 11/04/24 04:40
INR 1.44 11/04/24 04:40
APTT 32.9 Sec (23.4-35.0) 11/04/24 04:40
Estimated Creat Clear 85 ml/min 11/06/24 03:26
Lactic Acid 1.7 mmol/L (0.7-2.0) 10/31/24 04:49
Total Bilirubin 1.1 mg/dl (0.2-1.3) 11/06/24 03:26
AST 72 U/L (17-59) H 11/06/24 03:26
ALT 67 U/L (0-50) H 11/06/24 03:26
Alkaline Phosphatase 124 U/L (38-126) 11/06/24 03:26
Most recent labs reviewed.
Micro Results:
11/04/24 10:35 Blood Culture - Preliminary
Blood/Venous No Growth in 48 hours- Final report to follow
11/05/24 14:38 Blood Culture - Pending
Blood/Venous
10/31/24 02:39 Blood Culture - Final
Blood/Venous No Growth - Final Report
10/31/24 02:39 Blood Culture - Final
Blood/Venous No Growth - Final Report
10/31/24 08:59 Respiratory Culture - Final
Sputum Streptococcus pyogenes
Gram Stain - Final
10/31/24 02:56 Urine Culture - Final
Urine NO GROWTH
10/31/24 04:00 Legionella Urinary Antigen - Final
Urine Negative for Legionella pneumophila Serogroup 1 antigen.
A negative result does not rule out the possiblity of
Legionella infection due to other serogroups or species of
Legionella. Clinical correlation is recommended.
Streptococcus pneumoniae Antigen (M - Final
Negative for Streptococcus pneumoniae antigen.
A negative result does not exclude infection with
Streptococcus pneumoniae. Clinical correlation is
recommended.
10/30/24 23:23 Influenza Types A & B ([facility]) - Final
Nasal Swab Influenza A Positive, NAAT
10/30/24 CXR: Endotracheal tube with tip in trachea above the joseluis and nasogastric tube extending into the abdomen with tip off the image.
10/30/24 CXR: Low lung volumes with crowding of central/vascular markings. No focal consolidation to suggest pneumonia, pneumothorax or pleural effusion.
10/31/24 CT C/A/P: No evidence of pulmonary embolism or thoracic aortic dissection. Mild bibasilar subsegmental atelectasis, otherwise clear lungs. Severe coronary arterial calcification. Please correlate with symptoms of and risk factors for
coronary artery disease, with further workup as clinically appropriate. Findings suggestive of constipation. No evidence of intestinal obstruction or bowel inflammatory process. Scattered pancreatic calcifications suggestive of mild chronic
pancreatitis.
11/02/24 CXR: Small opacities projecting over the mid and lower right lung which may represent atelectasis, however pneumonia could appear similar.
11/04/24 CXR: Mild pulmonary vascular congestion. Patchy opacities within the right upper and left lower lung zones
11/05/24 CT C/A/P: Patchy parenchymal opacity within both lungs, increasing from prior CT, and most likely pneumonia. Moderate diffuse gaseous distention of the colon. There is also elongation and tortuosity of the colon. Air is present within
nondilated loops of small bowel. No evidence for free intraperitoneal air.
[2024-11-06 12:44] LABS: Glucose - Point of Care 104 mg/dl (70-99)
[2024-11-06 13:41] LABS: Glucose - Point of Care 133 mg/dl (70-99)
--- NOTE | 2024-11-06 13:47 | CM ---
CM following re: discharge planning.
Discussed in rounds, reviewed pt's chart, met with pt.
CM met with pt's daughter Tiny yesterday and she updated on discharge plan progress.
Per daughter a plan is for pt to return back to [facility] to continue on skilled services when medically stable.
Updated clinical faxed to [facility] for a review.
D/C plan: return back to [facility] to continue on skilled services when medically stable.
CM will follow with discharge plan updates as hospitalization progresses
[2024-11-06] MEDS: TAMIFLU TUBE (14:25)
--- NOTE | 2024-11-06 14:31 | W.PN.HOSP.TC ---
Addendum entered and electronically signed by Marcelo Patel MD 11/06/24 16:33:
Toxic Metabolic Encephalopathy(mostly 2/2 to acute infection) /Acute Delirium
Original Note:
Today's Communication/Plan
-
IV lasix 40mg BID
cont Abx, monitor fever curve
cdiff, noro
Assessment / Plan
Assessment / Plan
#Acute hypoxic respiratory failure
#Ventilator dependent respiratory failure, extubated 11/03
#Influenza + strep pyogenes pneumonia
# CT imaging appears worse
�Antibiotics, Tamiflu
-Switch to Meropenem, Linezolid
� Extubated 11/03
� Pulmonary on board
� Wean O2, O2 goal greater than 2%
� BiPAP at night, daughter is bringing in his own NIV
-NGT in place, continue tamiflu
#Septic shock, shock resolved 11/02
#Persistent fevers
� Continue antibiotics�continue ceftriaxone 2 g IV every 24 hours
� Recurrent febrile episodes
� Repeat blood cultures
� ID consulted
� Can mix Tamiflu suspension with applesauce once tolerating p.o.
� Holding antihypertensives
� Switch to meropenem, linezolid
- Diarrhea - F/u Norovirus, CDiff
- Imaging with Moderate diffuse gaseous distention of the colon. There is also elongation and tortuosity of the colon. May need to obtain further imaging although at this time, abd grossly non distended;
#Paroxysmal atrial fibrillation
-Status post DCCV x 2; nonvalvular; Home regimen includes Xarelto and metoprolol succinate
�NGT back in, resume xarelto
� Continue amiodarone drip for now while n.p.o.
-Add IV lopressor
-Continue with HR goal <120 with critical illness
-Monitor on telemetry here
�Switch to Xopenex
#Acute HFpEF
-Last echocardiogram with preserved LVEF, dilated RV though unable to assess RV systole
-BNP 20,000
-Repeat ECHO - EF 25%
-lasix 40mg IV BID if BP tolerates
-Home regimen includes bumetanide 1 mg daily; not on GDMT
-will need LHC in the future if/once he recovers
#Depression
-suicidal ideation
-pscyh consulted
-1-1
#Asthma
#JOHNNIE
-Patient with BiPAP dependent respiratory failure
-Home regimen includes Advair for maintenance, DuoNebs as needed
-Restart advair
-Auto-CPAP at home
-f/u Pulm outpt (Dr. Palomares)
#Transaminitis
� I suspect secondary to heart failure, congestive hepatopathy versus drug-induced
# Monitor with diuresis
#CAD s/p PCI
-Home medications include atorvastatin, metoprolol, and ACEi; not on antiplatelet but is on Xarelto
-Unknown when stent was placed or which coronary it was placed in
-Holding beta-lj due to circulatory shock, remains on Xarelto
#Rheumatoid arthritis
-Home medications include methotrexate and prednisone 5 mg daily
-No known complications of CAD or ILD
-Holding methotrexate, continued on steroid
-No signs of flare
#T2DM with neuropathy
- insulin ggt
-Medications also include gabapentin 900 mg 3 times daily for his neuropathy
#BPH
-Home regimen includes tamsulosin and finasteride
-Currently with Wallace catheter in place for strict I's and O's
-Will perform TOV prior to discharge
DVT prophylaxis: Home Xarelto -
GI : NG tube
Diet: Tube feeds with Jevity 1.5 - holding, can restart today
CODE STATUS: Currently full code, family to reconsider based on progression over next day or two
Total time spent on today's encounter was 53 minutes which included time spent in counseling the patient/family regarding diagnosis and treatment plan as listed above, goals of care, and symptom management. Case was discussed with nursing staff,
specialists, and care coordinators/case management. All labs and imaging personally reviewed by me. Remainder the time spent in detailed review of previous records, lab data, imaging, and other medical provider documentation.
Anticipated Discharge: > 48 hours
Subjective/Interval History
-
Date of Service: November 06, 2024
Appears to be defervescing
Objective Data
-
Labs:
Laboratory Results
11/06/24
03:26
WBC 14.1 H
Hgb 10.9 L
Hct 33.3 L
Plt Count 248
Sodium 140
Potassium 4.4
Chloride 101
Carbon Dioxide 25
BUN 50 H
Creatinine 1.0
Glucose 207 H
Calcium 8.5
Total Bilirubin 1.1
AST 72 H
ALT 67 H
Alkaline Phosphatase 124
Vital Signs:
Vital Signs
Temp Pulse Resp BP Pulse Ox
99.8 F 123 21 124/96 97
11/06/24 11:27 11/06/24 14:00 11/06/24 14:00 11/06/24 14:00 11/06/24 14:00
I&O
11/05/24 11/06/24 11/07/24
06:59 06:59 06:59
Intake Total 530.6 / 547.3 1199.8 / 1222.5 156.7 / 156.7
Output Total 1205 / 1265 1285 / 1325 820 / 820
Balance -674.4 / -717.7 -85.2 / -102.5 -663.3 / -663.3
Review of Systems
-
History Source: Patient
All other systems: Not reviewed unless documented
Physical Exam
-
General: Well Developed, Comfortable and Morbidly Obese
HEENT: Normocephalic, Atraumatic and Moist Mucous Membranes
Respiratory: Rhonchi and Non Labored Respirations; Negative Accessory Resp Muscle Use
Cardiac: Regular Rhythm and S1/S2; Negative Murmur, Rub or Gallop
GI: Soft, Nontender, Nondistended and Normal Bowel Sounds
Genito-urinary: Clear Urine and Wallace
Musculoskeletal: No Clubbing, No Cyanosis and No Edema
Skin: Warm and Dry; Negative Rash
Neuro: Awake, Alert and Nonfocal/Grossly Intact
Psych: Calm
Data Reviewed
-
Labs: Labs Reviewed by me and Discussed with Patient
[2024-11-06 14:38] LABS: Glucose - Point of Care 149 mg/dl (70-99)
[2024-11-06 15:33] LABS: Glucose - Point of Care 173 mg/dl (70-99)
--- NOTE | 2024-11-06 16:00 | PTCARENOTE ---
Right nare DHT placed @ 75 cm. CXR ordered for confirmation. B/l wrist restraints applied d/t patient pulling out multiple DHTs over past few days.
--- NOTE | 2024-11-06 16:29 | W.PN.UPDATE ---
Update Note
Progress Note Update
patient seen chart reviewed. spoke to [facility] [place] [place] dr saleh and to pharmacist as well as patient d. the patientis here bc of respiratory failure secondary to pneumonia and flu. he has many medicl comorbidities. consult was ordered for lethargy worsening
mental status and comments re si. the patient was not especially forthcoming. he answered questions with yes no or a shake of his head and little info gleaned from this. d he is depressed. he is still having thoughts of not wanting to be here. d
with whom i spoke tells me that he is a very 'black and white ' person. if he feels ill he just wants it to stop and he thinks of dying. if he has a good day he is 'very stubborn'. she says she feels he believes on a good day that he has a lot of
reason to life mainly his family. we talked about the pamelor he is taking. patient could not or would not tell me about his medications. our pharmacist noted he was put on pamelor on sep 17 he did not receive it from admit and it was only
ordered today. he was not put back on cymbalta which d feels really helped him. it was prescribed for pain. after discussinon w pharmacy will restart cymbalta and dc pamelor as the two together might have a lot of anticholinergic effects. patient
is aspirating repeatedly as per nursing and has a dobhoff. the patient pulled out dobhoff x2 nursing does not feel this was due to random agitation it was more like he just did not want not due to encephalopathy so prns for agitation likely not
going to be too effective. noted his qtc is high so no seroquel. given that he is getting morphine prn would be careful w benzos given respiratory drive. . for now will leave one to one in place. will reassess in am. called d again to apprise
[2024-11-06 16:33] LABS: Glucose - Point of Care 161 mg/dl (70-99)
[2024-11-06 17:38] LABS: Glucose - Point of Care 168 mg/dl (70-99)
[2024-11-06] MEDS: TYLENOL ORAL SOLUTION 650 MG TUBE (18:18)
[2024-11-06] MEDS: NEURONTIN 900 MG TUBE ×2 (18:18→22:28)
[2024-11-06] MEDS: ROBITUSSIN 200 MG TUBE ×2 (18:21→22:29)
--- NOTE | 2024-11-06 18:35 | PTCARENOTE ---
Xray confirmation of DHT. Meds administered through tube. TFs initiated as ordered. GP maintained. VSS.
[2024-11-06] MEDS: SODIUM CHLORIDE 3% FOR INHALATION INH (19:08)
[2024-11-06] MEDS: ADVAIR HFA 230/21 MCG INHALER INH (19:08)
[2024-11-06] MEDS: ATROVENT NEBULES INH (19:08)
[2024-11-06] MEDS: LOPRESSOR 12.5 MG TUBE (19:16)
[2024-11-06] MEDS: TAMIFLU 75 MG TUBE (19:16)
[2024-11-06 19:39] LABS: Glucose - Point of Care 222 mg/dl (70-99)
--- NOTE | 2024-11-06 19:51 | PTCARENOTE ---
Received patient yelling out, restless. Oriented to self. Afib with a bundle branch block, 100s-110s, BP stable, temp 100.5, prn tylenol given. On 2 liters nasal cannula saturating 98%, attempted to wean to room air, patient was saturating 87%. Lung
sounds coarse with scattered rhonchi and crackles throughout. Moist, productive cough with thick asif secretions. Right nare DHT at 75 cm, jevity 1.5 at 20 ml/hr with 25 ml flush advancing Q8 as tolerated. Abdomen soft, round, obese, hypoactive bowel
sounds. Wallace in place draining yellow urine. Right DL PICC and MODESTO PIV patent, WNL, amio and insulin gtt ongoing per protocol. Restraints and 1:1 ongoing.
[2024-11-06] MEDS: NOVOLIN R INSULIN INFUSION 100 IV (20:38)
[2024-11-06 20:44] LABS: Glucose - Point of Care 234 mg/dl (70-99)
[2024-11-06 21:42] LABS: Glucose - Point of Care 203 mg/dl (70-99)
[2024-11-06] MEDS: CORDARONE 518 MG IV (22:36)
[2024-11-06 22:44] LABS: Glucose - Point of Care 199 mg/dl (70-99)
[2024-11-07] VITALS (25 sets, daily range): BP systolic 89–127; BP diastolic 52–100; PULSE 92; BMI 39.5
[2024-11-07 00:08] LABS: Glucose - Point of Care 177 mg/dl (70-99)
--- NOTE | 2024-11-07 00:38 | PTCARENOTE ---
Patient had a BM, cleaned up, sheets changed, CHG bath done. 1:1 ongoing.
[2024-11-07 00:47] LABS: Glucose - Point of Care 154 mg/dl (70-99)
[2024-11-07 01:46] LABS: Glucose - Point of Care 127 mg/dl (70-99)
[2024-11-07 02:46] LABS: Glucose - Point of Care 134 mg/dl (70-99)
[2024-11-07] MEDS: MERREM 500 MG IV ×4 (03:25→20:45)
[2024-11-07] MEDS: STERILE WATER FOR INJECTION 10 ML IV ×4 (03:25→20:45)
[2024-11-07] MEDS: MORPHINE SULFATE 2 MG IV ×2 (03:36→12:32)
--- NOTE | 2024-11-07 04:00 | PTCARENOTE ---
Patient agitated, restless, calling out 'let me go'. CPOT 6, PRN morphine given. Otherwise patient assessment unchanged from previous. Restraints and 1:1 ongoing.
[2024-11-07 04:01] LABS: Hematocrit 32.9 % (39.0-52.0); Hemoglobin 10.6 g/dL (13.0-18.0); Mean Corp Hgb Conc. 32.2 g/dL (33.0-37.0); Mean Corpuscular Hgb 30.6 pg (27.0-31.0); Mean Corpuscular Volume 95.1 fL (80.0-94.0); Mean Platelet Volume 11.5 fL (7.4-10.4); Platelet Count 281 10^3/uL (130-400); Red Blood Cell Count 3.46 10^6/uL (4.70-6.10); Red Cell Dist. Width 18.6 % (11.5-14.5); White Blood Cell Count 11.5 10^3/uL (4.8-10.8)
[2024-11-07 04:21] LABS: ALT (SGPT) 93 U/L (0-50); AST (SGOT) 101 U/L (17-59); Albumin 2.9 g/dl (3.5-5.0); Alkaline Phosphatase 111 U/L (38-126); Blood Urea Nitrogen 56 mg/dl (9-20); Calcium 8.5 mg/dl (8.4-10.2); Carbon Dioxide 33 mmol/L (22-30); Chloride 103 mmol/L (98-107); Estimated Creatinine Clearance 75 ml/min; Glucose 129 mg/dl (70-99); Sodium 140 mmol/L (135-145); Total Bilirubin 0.8 mg/dl (0.2-1.3); Total Protein 6.9 g/dl (6.3-8.2); eGFR > 60.00
[2024-11-07 04:52] LABS: Glucose - Point of Care 116 mg/dl (70-99)
[2024-11-07] MEDS: ZYVOX 600 MG 300 IV ×2 (05:48→18:18)
[2024-11-07 06:34] LABS: Glucose - Point of Care 150 mg/dl (70-99)
[2024-11-07] MEDS: ATROVENT NEBULES 0.5 MG INH ×2 (08:06→19:30)
[2024-11-07] MEDS: SODIUM CHLORIDE 3% FOR INHALATION 1 VIAL INH ×2 (08:06→19:31)
[2024-11-07] MEDS: ADVAIR HFA 230/21 MCG INHALER 2 PUFF INH ×2 (08:07→19:31)
[2024-11-07] MEDS: XOPENEX 1.25 MG INHALANT SOLUTION INH ×2 (08:07→19:30)
--- NOTE | 2024-11-07 08:12 | W.PN.INTV ---
Today's Communication / Plan
Recommendations
ABx per ID for worsening bilateral PNA
Tamiflu x 5-10 days
Continue Advair
Continue nebulized bronchodilators with Xopenex + Atrovent + DuoNebs prn for assistance with mucus expectoration
Continue mucinex
Continue low dose BB as he takes toprol-XL at home and part of his tachycardia may be beta-lj withdrawal in addition to reflection of his critical illness
Start PO amio
Aspiration precautions
Weaned off insulin drip on 11/04, but due to hyperglycemia, insulin drip was resumed on 11/05 --> continue this for now
Continue prednisone
Maintain SpO2 >90-94%
CPAP with sleep --> refused last night
Currently is NPO as he failed ON AIR PERSONALITY --> hold TF today and place NGT to LIWS
Psych consulted on 11/04 due to suicidal ideation; continue 1:1
Continue ICU level care for this critically ill patient
Assessment
-
79-year-old gentleman with known history of JOHNNIE, noncompliant with nightly CPAP, morbid obesity, heart failure with preserved ejection fraction, developed respiratory distress at intermediate facility. Reportedly his roommate also had
respiratory symptoms. Patient tested positive for influenza A. In the emergency room he was hypoxic and hypotensive and was initially tried on BiPAP with suboptimal response. Patient was subsequently intubated and admitted to ICU. Patient
required pressor support for hypotension and was noted to be hypovolemic on initial admission and responded well to IV fluids.
#1. Acute hypoxic respiratory failure in the setting of influenza A infection with superimposed right sided multifocal pneumonia
-Patient's respiratory failure is multifactorial. This is a morbidly obese gentleman who was supposed to be on nightly CPAP for JOHNNIE who in addition has acute decompensated heart failure and recently contracted influenza A which led to further
respiratory decompensation. He failed BiPAP in the emergency room
-Since being here in the ICU, he has had worsening bilateral PNA, and was upgraded back to ICU from IMU level of care on 11/05/2024
-Strep pyogenes noted in the sputum on 10/31/2024 in addition to influenza A on 10/30/2024
-Patient was extubated on 11/03/2024 --> now on nasal cannula at 1-2 L/min, saturating 92%
-Antibiotics per infectious disease service, currently on meropenem s/p rocephin, Zyvox and Tamiflu --> ID changed ABx on 11/05 given fever since the day prior with worsening bilateral PNA seen on CT chest today
-Patient on chronic prednisone therapy for rheumatoid arthritis, was receiving IV steroids with Solu-Medrol 20 daily --> on 11/06 I transitioned back to PO prednisone now that he has NGT in place
#2. Shock, suspect septic shock - shock state resolved since 11/02/2024
-Follow-up on blood cultures (collected on 11/04 as well as 10/31/2024, which shows NGTD)
-Maintain MAP >65
-Procalcitonin elevated (although did have DEONDRE at the time)
-Lactate normalized as of 10/31
-Strep pyogenes noted on sputum culture from 10/31/2024
-Defer antibiotics to ID
- C. difficile antigen and toxins both negative on 11/06
#3. Diabetes mellitus II (uncontrolled � HbA1c: 8.1 on 09/11/2024)
-Weaned off insulin drip on 11/04/2024 onto basal�bolus insulin SQ dosing --> BG was >250 so insulin gtt resumed on 11/05
-Short acting insulin aspart started today with 5 units q6hr
-Now off tube feeds as patient pulled out his NGT after extubation on 11/03 --> resumed tube feeds on 11/06, however on AXR his bowel appears dilated, hence will hold TF today and place NGT to LIWS
#4. History of asthma, morbid obesity and JOHNNIE on auto-CPAP at home
-Currently patient is not wheezing and is breathing comfortably on 1-2 L/min nasal cannula
-No hypercapnia seen on blood gases this admission
-Presentation not suggestive of COPD exacerbation
-Was previously on Advair 250mcg at home --> continue Advair here while hospitalized with donna Corley
-Continue with CPAP with sleep; outpatient follow-up with Dr. Palomares (last visit 04/17/2024) --> he only tolerated about 1-2 hours overnight on 11/05-11/06
-Patient ripped off his CPAP mask overnight on 11/04 - 11/05/2024, and refused to put back on
-Refused CPAP overnight (11/06 - 11/07)
#5. History of coronary artery disease status post PCI
-Troponin peaked at 0.035 on 10/30/2024 � no longer need to continue trending at this time
#6. Acute heart failure with reduced ejection fraction (LVEF 25-30% with dilated IVC per TTE from 11/05/2024; previousy his EF was 55-60% + RV poorly visualized on ECHO in 08/2024)
-Presentation earlier this admission did not appear to be related to volume overload --> patient looked hypovolemic on initial presentation as per Dr. Adams
-S/p 2 L bolus in the emergency room, followed by another 500 mL bolus after arrival to ICU
-Monitor strict I/O; trend UOP and BNP
-Lasix 40 mg IVP x 1 given on 11/03/2024 --> CXR from 11/05 shows mild pulmonary vascular congestion
-Transthoracic echo from 11/05/2024 shows acutely reduced LVEF at 25-30% with dilated IVC without respiratory variation � started diuresis on 11/06 with lasix 40mg IV BID; monitor I/O + UOP
#7. Paroxysmal atrial fibrillation, rate is normal
-Continue amiodarone gtt --> PO amio started today (11/07)
- Pt takes toprol-XL at home --> on 11/06 I started low dose metoprolol tartrate as BP can tolerated, as part of his tachycardia may be BB-withdrawal
-Continue Xarelto for anticoagulation via NGT
#8. History of rheumatoid arthritis with chronic prednisone use
-Continue systemic steroids --> resumed home prednisone dose on 11/06 now that he has NGT in place
#9. Suicidal ideation
-Patient said that he wanted to and RN appreciated suicidal ideation
-Consulted psychiatry
-Continue 1:1
DVT prophylaxis: Xarelto
GI Prophylaxis: PPI (home med)
Nutrition: ON AIR PERSONALITY following; NPO for now; started tube feeds on 11/06, however will hold today and place NGT to LIWS given worsening bowel distension seen on AXR
Discussion with daughter with Dr. Linares � 11/05/2024:
He has been at a [facility] ([facility]) since after a lower extremity fracture due to a fall. He has been non-weight bearing up until about 10 days ago. The patient's roommate was coughing and brought to the hospital about 2 weeks ago.
He was supposed to come home this past weekend, but unfortunately has been hospitalized. He has been living with his daughter for last 2 years - she used to live in [place] and moved up here to [place] to have her dad move in with her. He was up to
walking about 100 yards over the last 2 weeks. She would like to continue full medical management.
Continue ICU level care for this critically ill patient
Critical care statement: A total of 38 minutes of critical care time was provided for this patient today. This includes management of unstable vital signs, evaluation of the patient at bedside, reviewing the patient's pertinent medical records
including radiographs, microbiology, laboratory evaluations, and discussion with primary team, consultants, pharmacy, nutrition, physical therapy, case management, charge nurse, critical care nursing, and respiratory therapy.
Subjective Dataa
Subjective Data
Date of Service:
Date of Service: November 07, 2024
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
Subjective:
Patient seen and evaluated today at bedside. Febrile last night to 100.6 �F. This AM, pt's HR 90, BP 107/58 and saturating 97% on 2L/min. Patient bringing up thick, asif secretions and coughing it out okay. NGT in place. Remains on amiodarone
drip at 0.5 mg/min. He is much more awake today and answering questions. Currently on insulin drip at 1.3 units/h.
Review of Systems
General: Other (Negative unless mentioned above)
Objective Data
Data Reviewed
Vital Signs / I&O / Oxygen:
Vital Signs
Temp Pulse Resp BP Pulse Ox
99.6 F 111 18 122/100 99
11/07/24 07:01 11/07/24 08:12 11/07/24 08:12 11/07/24 06:00 11/07/24 08:12
Intake and Output
11/06/24 11/07/24 11/08/24
06:59 06:59 06:59
Intake Total 1199.8 / 1222.5 1539.2 / 1625.9 173.4 / 173.4
Output Total 1285 / 1325 6 / 2063 43 / 43
Balance -85.2 / -102.5 -496.8 / -438.1 130.4 / 130.4
SaO2 [A/C] 98
SaO2 99
Nasal Cannula flow liters per 2
minute
Physical Exam
General: Respiratory Distress (n), Comfortable, Chills (n) and Sweats (n)
HEENT: Normocephalic, Anicteric and Other (thick neck)
Cardiovascular: S1-S2, Rub (n) and Peripheral Edema (Trace LE edema bilaterally)
Respiratory: Clear, Wheeze (negative), Crackles (negative), Rhonchi (Bilateral), Non-Labored Respirations and Stridor (n)
GI: Soft, Distended (abdominal obesity), Non Tender and Normal Bowel Sounds
Neurology: Awake, Tremors (n) and Other (more talkative today although remains confused; repetitive with his words (i.e., yes or no))
Skin: Warm, Dry and Jaundice (n)
Labs/Micro/Reports
Lab Data
11/07/24 03:45
11/07/24 03:45
Microbiology
11/06/24 13:18 Feces/Stool C. difficile GDH Antigen & Toxins - Final
Negative for toxigenic C.difficile
11/06/24 13:18 Feces/Stool - Final
Negative for Norovirus GI and GII.
11/05/24 14:38 Blood/Venous Blood Culture - Preliminary
No Growth in 24 hours- Final report to follow
11/04/24 10:35 Blood/Venous Blood Culture - Preliminary
No Growth in 48 hours- Final report to follow
10/31/24 02:39 Blood/Venous Blood Culture - Final
No Growth - Final Report
10/31/24 02:39 Blood/Venous Blood Culture - Final
No Growth - Final Report
--- NOTE | 2024-11-07 08:32 | PN.DE.MGMTRT ---
Insulin Management
- -
11/07/2024: Diabetes Management Follow up
71 year old male admitted with Acute respiratory failure due to Influenza A and CAP.
PMH: Asthma/COPD, JOHNNIE, Smoking, 1/2 PPD, HTN, Permanent A-fib/A-flutter, CAD s/p PCI, HLD, Chronic back pain, GERD, Dysphagia, BPH, Nephrolithiasis, Gout
Rheumatoid Arthritis, Occasional ETOH use, T2DM with Neuropathy and Morbid Obesity. Prior to admission was taking Glargine 60 units HS and Humalog 12 units AC. Recent A1C 8.1% 09/11/24, Cr 1.0, eGFR >60. Pt was intubated and started on IV steroids,
contributing to Hyperglycemia. Unable to provide hx, information obtained from chart review.
Pt resting in bed, eyes closed, not responding to questions and unable to discuss diabetes care plan.
Patient transitioned from glycemic protocol insulin infusion 11/04 with lantus 30 units @ hs and low corrective insulin. Resumed glycemic protocol 11/05.
Today cr 1.1, eGFR > 60. Tube feeds have been started now @ 40 ml per hour. Remains on insulin infusion receiving 3 to 7 units of insulin per hour.
Discussed with pharmacy and [employer], will start Q 6 novolog 5 units and continue insulin infusion at this time.
Will follow closely and assess for readiness to transition to subcutaneous insulin
Discussed with Nurse
Diabetes History
- -
Type of Diabetes: 2 requiring insulin
Pre-Admission Diabetes Regimen
11/07/24
03:45
Creatinine 1.1
Lab Results
Hemoglobin A1c Cancelled 11/05/24 10:24
Insulin Pump Settings
IP Diabetes Regimen
11/06/24 11/06/24 11/06/24
08:27 09:37 10:27
Glucose
POC Glucose 205 H 149 H 139 H
11/06/24 11/06/24 11/06/24
11:26 12:26 13:29
Glucose
POC Glucose 124 H 104 H 133 H
11/06/24 11/06/24 11/06/24
14:26 15:20 16:21
Glucose
POC Glucose 149 H 173 H 161 H
11/06/24 11/06/24 11/06/24
17:26 19:27 20:32
Glucose
POC Glucose 168 H 222 H 234 H
11/06/24 11/06/24 11/06/24
21:31 22:33 23:26
Glucose
POC Glucose 203 H 199 H 177 H
11/07/24 11/07/24 11/07/24
00:36 01:35 02:35
Glucose
POC Glucose 154 H 127 H 134 H
11/07/24 11/07/24 11/07/24
03:45 04:41 06:23
Glucose 129 H
POC Glucose 116 H 150 H
Patient Education
[2024-11-07 08:47] LABS: Glucose - Point of Care 154 mg/dl (70-99)
--- NOTE | 2024-11-07 10:06 | W.PN.CD ---
Today's Communication / Plan
-
transition iv amiodarone to po
continue bb po
continue IV lasix as able, goal at lease even
Impression / Plan
-
Flu A:
-received Tamiflu
PNA, strep pyrogenes:
-on ABX and ID is following
TME:
-currently not very conversant
AFIB with RVR: persistent (vs permanent)
-rates appropriate for current clinical condition
-onIV amiodarone, will transition to po hopefully this is transitional
-he does not feel it
-BP has been low, so has not been able to get his BB. Will stop IV BB. Added metoprolol tartrate to crush take via tube if needed.
-will transition to succinate when stable dosing
-continue Xarelto
Kriuc-mc-lpxldxy HFrEF:
-EF previously preserved, but now reduced as below
-weight is down, but BNP up and s/p fluids and diuretic held, and crackles to b/l lung bases- agree with IV lasix as tolerated, which requires intensive monitoring
CAD with hx stenting:
-on Xarelto, statin as OP
-denies any CP
Cardiomyopathy, type unknown:
-in setting of septic shock/acute illness, but also known CAD with hx LAD stenting
-Echo 11/06/24: Severely reduced left ventricular systolic function. Left ventricular ejection fraction is 25-30% by visual assessment. The basal leo are best preserved, but all leo are hypokinetic. The IVC is dilated and does not demonstrate
normal respiratory variation. Compared to the prior 09/11/24, the ejection fraction was previously normal is now 25-30%.
-not appropriate for ischemic eval at this time (acute infectious illness, no CP or ischemic EKG changes). Cannot add GDMT right now due to acute infectious illness with BP limitations. Assess for these things as he recovers.
Subjective:
He is awake doesn't readily answer questions, but states I can examine him
Physical Exam
Vital Signs/Labs
Vital Signs
Temp Pulse Resp BP Pulse Ox
99.6 F 111 18 122/100 99
11/07/24 07:01 11/07/24 08:12 11/07/24 08:12 11/07/24 06:00 11/07/24 08:12
11/06/24 11/07/24 11/08/24
06:59 06:59 06:59
Actual Weight 135.2 kg 131.9 kg
11/07/24 03:45
11/07/24 03:45
PT 17.8 Sec (11.4-14.6) H 11/04/24 04:40
INR 1.44 11/04/24 04:40
APTT 32.9 Sec (23.4-35.0) 11/04/24 04:40
Magnesium 2.3 mg/dl (1.6-2.3) 11/05/24 03:47
Triglycerides 157 mg/dl (10-149) H 11/06/24 03:26
10/30/24 11/04/24 11/05/24
23:23 04:13 03:47
Yfl-V-Bpdxbtwmgtn Pept [id number]
Physical Exam
Constitutional: No acute distress and Comfortable
Cardiovascular: Pedal edema is absent, Systolic murmur absent, Diastolic murmur absent and Rhythm/rate is irregular
Respiratory: Respiratory effort normal and Rhonchi Present (diffusely)
Neuro/Psych: Alert and Other (doesn't participate in interview)
Data Reviewed
-
Date of Service: November 07, 2024
Medical Decision Making: Review of Case with other Provider (Dr Patel will transition to lori amado)
EKG: Other (rate control fib)
[2024-11-07 10:40] LABS: Glucose - Point of Care 113 mg/dl (70-99)
[2024-11-07] MEDS: NEURONTIN 900 MG TUBE ×3 (10:41→20:56)
[2024-11-07] MEDS: PACERONE 400 MG PO ×2 (10:42→20:45)
[2024-11-07] MEDS: TYLENOL ORAL SOLUTION 650 MG TUBE (10:43)
[2024-11-07] MEDS: PROTONIX IV 40 MG IV (10:44)
[2024-11-07] MEDS: NSS (PRESERVATIVE FREE) 10 ML IV (10:44)
[2024-11-07] MEDS: XARELTO 20 MG TUBE (10:45)
[2024-11-07] MEDS: LASIX 40 MG IV ×2 (10:45→17:04)
[2024-11-07] MEDS: ROBITUSSIN 200 MG TUBE ×4 (10:45→20:56)
[2024-11-07] MEDS: MIRALAX TUBE (10:45)
[2024-11-07] MEDS: CYMBALTA DELAYED RELEASE 60 MG PO (10:46)
[2024-11-07] MEDS: LOPRESSOR 12.5 MG TUBE ×2 (10:46→20:46)
[2024-11-07] MEDS: DELTASONE 5 MG TUBE (10:46)
[2024-11-07] MEDS: PROSCAR 5 MG TUBE (10:46)
[2024-11-07] MEDS: FLOMAX 0.4 MG TUBE (10:46)
--- NOTE | 2024-11-07 10:47 | PTCARENOTE ---
Amio gtt off at this time per orders, PO dose administered via DHT.
[2024-11-07] MEDS: LAC HYDRIN, AM LACTIN LOTION 1 APPLIC TOPICAL (10:50)
[2024-11-07] MEDS: TAMIFLU 75 MG TUBE ×2 (11:09→20:46)
--- NOTE | 2024-11-07 11:49 | VATNOTE ---
R arm seems more swollen than L arm upon assessment of PICC line. Spoke w/ attending, U/S ordered. Will continue to monitor.
--- NOTE | 2024-11-07 11:56 | PTCARENOTE ---
Dr. Cm in room to assess patient, removed restraints but will keep 1:[address] for safety. Pt mental status much improved since previous assessment per her report. Daughter at bedside.
--- NOTE | 2024-11-07 12:06 | W.PN.UPDATE ---
Update Note
Progress Note Update
patient seen chart reviewed. discussed w nursing. daughter at bedside. the patient was much better today. he answered all of my questions appropriately with more than one word answers. yesterday was yes or no if any answer at all. he said he was
looking forward to seeing his grandkids tomorrow and the next day and was able to tell me where they were flying in from. we talked a bit about the lou his grandkids have given him. he was watching [employer] and responded to some ribbing by his d
that he was watching '[employer]'. he asked me to remove his wrist restraints. i reminded him of ripping out his dobhoff tube twice. he said this would not happen again but did admit it 'hurt' and would hurt to put back in. comparing to yesterday i
do wonder how much of encephalopathy was operating . could the pamelor with its anticholinergic effects have contributed. he is no longer on it. could restarting the cymbalta figure in the improvement. not clear. i did remove his restraints and
told nursing. will keep the one to one for now as we observe him off restraints. nursing will be implementing bowel intervention for air in bowel. hopefully he can tolerate this and i would remind him that it could lead to him being able to be of
npo regimen. will see him tomorrow.
--- NOTE | 2024-11-07 12:16 | W.PN.ID1 ---
Date of Service
Date of Service: November 07, 2024
Today's Communication
Continue linezolid, meropenem, oseltamivir.
Assessment / Plan
# Recurrence of fever- trending down
# Leukocytosis trending down
# Aspiration pneumonia
# MRSA colonized
# Multiple antibiotic allergies
- Repeat bcx x 2 neg to date. Repeat COVID neg.
- 11/05/24 CT c/a/p patchy lung opacity; diffuse gaseous distention of colon, elongation and tortuous colon.
-C. diff neg; norovirus PCR negative
- Continue linezolid/meropenem (d3 of 7)
- Aspiration precaution.
- NGT decompression for colon gaseous distention
- Follow temps/wbc
# Influenza A infection present on admission.
-Vaccinated status
- On Oseltamivir intermittent interruptions due to npo/loss of enteral access
- NGT re-inserted 11/06.
- Thus far, received 8 doses (4days) of oseltamivir. Will give 2 more doses.
- DC droplet precaution when afebrile.
# Superimposed group A strep pneumonia, present on admission
# s/p Acute hypoxemic respiratory failure, extubated 11/03
-Completed effective abx (d9)
# Suicide ideation
-Psychiatry following
# Afib with RVR
-Cardiology following
# s/p Septic shock
# Conditions [employer]
DM2
neuropathy
COPD
Afib hx ablation, cardioversion
CAD s/p stent
HFpEF
RA on MTX, leucovorin, folic acid, 5mg prednisone
HTN
dyslipidemia
sleep apnea on CPAP
nephrolithiasis
Chronic back pain
BPH
Sacral decubitus
class III obesity
bilateral TKR
right SONIA
Spine surgery
hernia repair
esophageal stricture dilation
BLE fracture
Chief Complaint
-: Fever, Clinical Sepsis, Pneumonia and Other (Flu)
Subjective / Review of Systems
Awake but not interactive.
Vital Signs / Physical Exam
Vital Signs
Vital Signs
Temp Pulse Resp BP Pulse Ox
99.3 F 101 16 91/68 91
11/07/24 11:38 11/07/24 11:00 11/07/24 11:00 11/07/24 11:00 11/07/24 11:00
Physical Exam
Constitutional: Acutely Ill
Head: Other (No frontal or maxillary sinus tenderness. NGT in place.)
Eyes: No Conjunctival Hemorrhage and Sclera Anicteric
Cardiovascular: Irregular Rate and Other (Tachy)
Pulmonary: Rales (bibase)
Gastrointestinal: Soft, Non Tender, Distended and Other (high pitched BS)
Extremities: Negative Edema
Neurological: Awake
Objective Data
Lab Data
Lab Results
11/07/24 03:45
11/07/24 03:45
PT 17.8 Sec (11.4-14.6) H 11/04/24 04:40
INR 1.44 11/04/24 04:40
APTT 32.9 Sec (23.4-35.0) 11/04/24 04:40
Estimated Creat Clear 75 ml/min 11/07/24 03:45
Lactic Acid 1.7 mmol/L (0.7-2.0) 10/31/24 04:49
Total Bilirubin 0.8 mg/dl (0.2-1.3) 11/07/24 03:45
AST 101 U/L (17-59) H 11/07/24 03:45
ALT 93 U/L (0-50) H 11/07/24 03:45
Alkaline Phosphatase 111 U/L (38-126) 11/07/24 03:45
Most recent labs reviewed.
Micro Results:
11/04/24 10:35 Blood Culture - Preliminary
Blood/Venous No Growth in 72 hours- Final report to follow
11/06/24 13:18 C. difficile GDH Antigen & Toxins - Final
Feces/Stool Negative for toxigenic C.difficile
- Final
Negative for Norovirus GI and GII.
11/05/24 14:38 Blood Culture - Preliminary
Blood/Venous No Growth in 24 hours- Final report to follow
10/31/24 02:39 Blood Culture - Final
Blood/Venous No Growth - Final Report
10/31/24 02:39 Blood Culture - Final
Blood/Venous No Growth - Final Report
10/31/24 08:59 Respiratory Culture - Final
Sputum Streptococcus pyogenes
Gram Stain - Final
10/31/24 02:56 Urine Culture - Final
Urine NO GROWTH
10/31/24 04:00 Legionella Urinary Antigen - Final
Urine Negative for Legionella pneumophila Serogroup 1 antigen.
A negative result does not rule out the possiblity of
Legionella infection due to other serogroups or species of
Legionella. Clinical correlation is recommended.
Streptococcus pneumoniae Antigen (M - Final
Negative for Streptococcus pneumoniae antigen.
A negative result does not exclude infection with
Streptococcus pneumoniae. Clinical correlation is
recommended.
10/30/24 23:23 Influenza Types A & B (YOKASTA) - Final
Nasal Swab Influenza A Positive, NAAT
10/30/24 CXR: Endotracheal tube with tip in trachea above the joseluis and nasogastric tube extending into the abdomen with tip off the image.
10/30/24 CXR: Low lung volumes with crowding of central/vascular markings. No focal consolidation to suggest pneumonia, pneumothorax or pleural effusion.
10/31/24 CT C/A/P: No evidence of pulmonary embolism or thoracic aortic dissection. Mild bibasilar subsegmental atelectasis, otherwise clear lungs. Severe coronary arterial calcification. Please correlate with symptoms of and risk factors for
coronary artery disease, with further workup as clinically appropriate. Findings suggestive of constipation. No evidence of intestinal obstruction or bowel inflammatory process. Scattered pancreatic calcifications suggestive of mild chronic
pancreatitis.
11/02/24 CXR: Small opacities projecting over the mid and lower right lung which may represent atelectasis, however pneumonia could appear similar.
11/04/24 CXR: Mild pulmonary vascular congestion. Patchy opacities within the right upper and left lower lung zones
11/05/24 CT C/A/P: Patchy parenchymal opacity within both lungs, increasing from prior CT, and most likely pneumonia. Moderate diffuse gaseous distention of the colon. There is also elongation and tortuosity of the colon. Air is present within
nondilated loops of small bowel. No evidence for free intraperitoneal air.
Care Review
Plan reviewed with: Physician (Dr. Patel)
[2024-11-07 12:27] LABS: Glucose - Point of Care 100 mg/dl (70-99)
--- NOTE | 2024-11-07 12:37 | PTCARENOTE ---
Plan was discussed with Dr. Patel, orders rec'd to place NGT to LIWS for abdominal decompression; pt will be NPO. Orders rec'd. Daughter and pt updated.
--- NOTE | 2024-11-07 13:32 | CM ---
Chart reviewed and plan remains for patient to return to [facility] when stable. Case manger faxed over updated notes to admissions at [facility] in [employer].
[facility]
Report [phone]

Plan; Patient to return to [facility] when stable.
[2024-11-07 13:43] LABS: Glucose - Point of Care 111 mg/dl (70-99)
--- NOTE | 2024-11-07 13:55 | W.PN.HOSP.TC ---
Today's Communication/Plan
-
NGT with LIWS
abx
lasix
switch to po meds as able
glycemic control
Assessment / Plan
Assessment / Plan
#Acute hypoxic respiratory failure
#Ventilator dependent respiratory failure, extubated 11/03
#Influenza + strep pyogenes pneumonia
# CT imaging appears worse
�Antibiotics, Tamiflu
-Switch to Meropenem, Linezolid
� Extubated 11/03
� Pulmonary on board
� Wean O2, O2 goal greater than 2%
� BiPAP at night, daughter is bringing in his own NIV
-NGT in place, continue tamiflu
#Septic shock, shock resolved 11/02
#Persistent fevers
� Continue antibiotics - Meropenem, Linezolid
� Recurrent febrile episodes improved
� F/u Repeat blood cultures
� ID consulted
� Can mix Tamiflu suspension with applesauce once tolerating p.o.
� Holding antihypertensives
- - F/u Norovirus, CDiff negative
#Moderate diffuse gaseous distention of the colon.
-NGT to LIWS for now, can clamp for meds
#Paroxysmal atrial fibrillation
-Status post DCCV x 2; nonvalvular; Home regimen includes Xarelto and metoprolol succinate
�NGT back in, resume xarelto
� Continue amiodarone - switch to PO
-Add IV lopressor
-Continue PO BB
-Continue with HR goal <120 with critical illness
-Monitor on telemetry here
�Switch to Xopenex
#Acute HFpEF
-Last echocardiogram with preserved LVEF, dilated RV though unable to assess RV systole
-BNP 20,000
-Repeat ECHO - EF 25%
-lasix 40mg IV BID if BP tolerates
-Home regimen includes bumetanide 1 mg daily; not on GDMT
-will need LHC in the future if/once he recovers
#Depression
-suicidal ideation
-pscyh consulted - cleared
#Asthma
#JOHNNIE
-Patient with BiPAP dependent respiratory failure
-Home regimen includes Advair for maintenance, DuoNebs as needed
-Restart advair
-Auto-CPAP at home
-f/u Pulm outpt (Dr. Palomares)
#Transaminitis
� I suspect secondary to heart failure, congestive hepatopathy versus drug-induced
- Monitor with diuresis
#CAD s/p PCI
-Home medications include atorvastatin, metoprolol, and ACEi; not on antiplatelet but is on Xarelto
-Unknown when stent was placed or which coronary it was placed in
-Holding beta-lj due to circulatory shock, remains on Xarelto
#Rheumatoid arthritis
-Home medications include methotrexate and prednisone 5 mg daily
-No known complications of CAD or ILD
-Holding methotrexate, continued on steroid
-No signs of flare
#T2DM with neuropathy
- insulin ggt
-Medications also include gabapentin 900 mg 3 times daily for his neuropathy
#BPH
-Home regimen includes tamsulosin and finasteride
-Currently with Wallace catheter in place for strict I's and O's
-Will perform TOV prior to discharge
DVT prophylaxis: Home Xarelto -
GI : NG tube
Diet: Tube feeds with Jevity 1.5 - holding, can restart today
CODE STATUS: Currently full code, family to reconsider based on progression over next day or two
Total time spent on today's encounter was 56 minutes which included time spent in counseling the patient/family regarding diagnosis and treatment plan as listed above, goals of care, and symptom management. Case was discussed with nursing staff,
specialists, and care coordinators/case management. All labs and imaging personally reviewed by me. Remainder the time spent in detailed review of previous records, lab data, imaging, and other medical provider documentation.
Anticipated Discharge: > 48 hours
Subjective/Interval History
-
Date of Service: November 07, 2024
more alert today, although decreased bowel sounds
Objective Data
-
Labs:
Laboratory Results
11/07/24
03:45
WBC 11.5 H
Hgb 10.6 L
Hct 32.9 L
Plt Count 281
Sodium 140
Potassium 4.0
Chloride 103
Carbon Dioxide 33 H
BUN 56 H
Creatinine 1.1
Glucose 129 H
Calcium 8.5
Total Bilirubin 0.8
AST 101 H
ALT 93 H
Alkaline Phosphatase 111
Vital Signs:
Vital Signs
Temp Pulse Resp BP Pulse Ox
99.3 F 93 16 102/69 99
11/07/24 11:38 11/07/24 12:00 11/07/24 12:00 11/07/24 12:00 11/07/24 12:00
I&O
11/06/24 11/07/24 11/08/24
06:59 06:59 06:59
Intake Total 1199.8 / 1222.5 1539.2 / 1625.9 568.8 / 568.8
Output Total 1285 / 1325 2036 / 2064 677 / 677
Balance -85.2 / -102.5 -496.8 / -438.1 -108.2 / -108.2
Review of Systems
-
History Source: Patient
All other systems: Not reviewed unless documented
Physical Exam
-
General: Well Developed, Comfortable and Morbidly Obese
HEENT: Normocephalic, Atraumatic and Moist Mucous Membranes
Respiratory: Rhonchi and Non Labored Respirations; Negative Accessory Resp Muscle Use
Cardiac: Regular Rhythm and S1/S2; Negative Murmur, Rub or Gallop
GI: Soft, Nontender, Nondistended and Normal Bowel Sounds
Genito-urinary: Clear Urine and Wallace
Musculoskeletal: No Clubbing, No Cyanosis and No Edema
Skin: Warm and Dry; Negative Rash
Neuro: Awake, Alert and Nonfocal/Grossly Intact
Psych: Calm
[2024-11-07 15:10] LABS: Glucose - Point of Care 138 mg/dl (70-99)
--- NOTE | 2024-11-07 16:07 | PTCARENOTE ---
Pt remains calm and cooperative, restraints remain off. Pt incont large brown liquid bowl mvmt, pericare provided, linens changed. Wallace removed per protocol, pt verbalized understanding to notify RN when needing to void or move bowels.
[2024-11-07 16:14] LABS: Glucose - Point of Care 137 mg/dl (70-99)
[2024-11-07 17:08] LABS: Glucose - Point of Care 163 mg/dl (70-99)
--- NOTE | 2024-11-07 17:55 | PTCARENOTE ---
Pt again with large loose BM, Rectal trumpet placed. Pt did also void 110 mls in yellow urine in urinal.
[2024-11-07] MEDS: NOVOLOG FLEXPEN SC (17:58)
[2024-11-07 18:07] LABS: Glucose - Point of Care 164 mg/dl (70-99)
[2024-11-07 19:10] LABS: Glucose - Point of Care 173 mg/dl (70-99)
--- NOTE | 2024-11-07 20:00 | PTCARENOTE ---
Received patient oriented to self, place, and knew it was October but thought it was 2025. Afib on the monitor with a bundle branch block, 80s-90s. Normothermic, BP stable, palpable radial and pedal pulses b/l. Lung sounds coarse with scattered
rhonchi, on 2 liters nasal cannula saturating 96%. Right nare NGT to LIWS at 70 cm putting out greenish/brown drainage. Abdomen soft, round, obese, hypoactive bowel sounds. Rectal trumpet in place draining brown loose stool. Urinal to void. Heel
foams intact. Right DL PICC and left PIV patent, WNL. Insulin gtt ongoing. 1:1 ongoing, repositioned.
[2024-11-07] MEDS: NOVOLIN R INSULIN INFUSION 100 IV (20:49)
[2024-11-07 21:13] LABS: Glucose - Point of Care 177 mg/dl (70-99)
[2024-11-07 23:10] LABS: Glucose - Point of Care 162 mg/dl (70-99)
[2024-11-08] VITALS (28 sets, daily range): BP systolic 80–124; BP diastolic 55–92; PULSE 90–97; O2SAT 90–95; BMI 38.9
[2024-11-08] MEDS: NOVOLOG FLEXPEN 5 UNITS SC ×4 (00:02→18:28)
[2024-11-08 01:21] LABS: Glucose - Point of Care 126 mg/dl (70-99)
[2024-11-08] MEDS: MERREM 500 MG IV ×4 (01:42→20:11)
[2024-11-08] MEDS: STERILE WATER FOR INJECTION 10 ML IV ×4 (01:42→20:11)
--- NOTE | 2024-11-08 02:26 | PTCARENOTE ---
Transferred to sport bed, attempted chest PT, after 5 minutes patient said he felt nauseous, stopped therapy. Stool leaked around rectal trumpet, cleaned up. CHG bath done, repositioned. Bipap removed per patient request and switched back to 2
liters nasal cannula. 1:1 ongoing.
[2024-11-08 03:47] LABS: Glucose - Point of Care 108 mg/dl (70-99)
[2024-11-08 05:05] LABS: Hematocrit 32.9 % (39.0-52.0); Hemoglobin 10.6 g/dL (13.0-18.0); Mean Corp Hgb Conc. 32.2 g/dL (33.0-37.0); Mean Corpuscular Hgb 31.3 pg (27.0-31.0); Mean Corpuscular Volume 97.1 fL (80.0-94.0); Mean Platelet Volume 11.7 fL (7.4-10.4); Platelet Count 255 10^3/uL (130-400); Red Blood Cell Count 3.39 10^6/uL (4.70-6.10); Red Cell Dist. Width 18.7 % (11.5-14.5)
[2024-11-08 05:13] LABS: Glucose - Point of Care 115 mg/dl (70-99)
[2024-11-08] MEDS: ZYVOX 600 MG 300 IV ×2 (05:19→18:27)
[2024-11-08 05:48] LABS: ALT (SGPT) 115 U/L (0-50); AST (SGOT) 106 U/L (17-59); Albumin 2.8 g/dl (3.5-5.0); Alkaline Phosphatase 113 U/L (38-126); Blood Urea Nitrogen 47 mg/dl (9-20); Calcium 8.2 mg/dl (8.4-10.2); Carbon Dioxide 37 mmol/L (22-30); Chloride 101 mmol/L (98-107); Estimated Creatinine Clearance 91 ml/min; Glucose 119 mg/dl (70-99); Potassium 3.6 mmol/L (3.5-5.1); Sodium 142 mmol/L (135-145); Total Bilirubin 0.8 mg/dl (0.2-1.3); Total Protein 6.8 g/dl (6.3-8.2); eGFR > 60.00
[2024-11-08] MEDS: KCL 100 IV (06:21)
[2024-11-08 07:04] LABS: Glucose - Point of Care 151 mg/dl (70-99)
[2024-11-08] MEDS: SODIUM CHLORIDE 3% FOR INHALATION 1 VIAL INH ×2 (07:19→19:35)
[2024-11-08] MEDS: ADVAIR HFA 230/21 MCG INHALER 2 PUFF INH ×2 (07:19→19:36)
[2024-11-08] MEDS: ATROVENT NEBULES 0.5 MG INH ×2 (07:19→19:35)
--- NOTE | 2024-11-08 07:53 | PN.DE.MGMTRT ---
Insulin Management
- -
11/08/2024: Diabetes Management Follow up
71 year old male admitted with Acute respiratory failure due to Influenza A and CAP.
PMH: Asthma/COPD, JOHNNIE, Smoking, 1/2 PPD, HTN, Permanent A-fib/A-flutter, CAD s/p PCI, HLD, Chronic back pain, GERD, Dysphagia, BPH, Nephrolithiasis, Gout
Rheumatoid Arthritis, Occasional ETOH use, T2DM with Neuropathy and Morbid Obesity. Prior to admission was taking Glargine 60 units HS and Humalog 12 units AC. Recent A1C 8.1% 09/11/24, Cr 1.0, eGFR >60. Pt was intubated and started on IV steroids,
contributing to Hyperglycemia. Unable to provide hx, information obtained from chart review.
Pt resting in bed, eyes closed, not responding to questions and unable to discuss diabetes care plan. Dtr at bedside.
Patient transitioned from glycemic protocol insulin infusion 11/04 with Lantus 30 units @ hs and low corrective insulin. Resumed glycemic protocol 11/05.
11/07 was started on Q 6 NovoLog 5 units due to high insulin requirements.
Today pt remains on insulin infusion and tube feeds have been on hold since this AM.
Glucose range 108 to 151, requiring 1 to 1.7 units of insulin per hour.
Will transition pt off insulin infusion to SQ insulin. Give Lantus 20 units now, turn drip off 1 hr after giving Lantus.
Speech eval done, recs for puree diet. Will start Lantus 30 units @ HS, NovoLog 5 units AC and moderate correct
Pt was taking higher insulin doses GROUP TESTER, anticipate higher insulin needs
Discussed with Nurse
Diabetes History
- -
Type of Diabetes: 2 requiring insulin
Pre-Admission Diabetes Regimen
11/08/24
04:53
Creatinine 0.9
Lab Results
Hemoglobin A1c Cancelled 11/05/24 10:24
Insulin Pump Settings
IP Diabetes Regimen
11/07/24 11/07/24 11/07/24
08:36 10:29 12:16
Glucose
POC Glucose 154 H 113 H 100 H
11/07/24 11/07/24 11/07/24
13:31 14:59 16:03
Glucose
POC Glucose 111 H 138 H 137 H
11/07/24 11/07/24 11/07/24
16:57 17:56 18:58
Glucose
POC Glucose 163 H 164 H 173 H
11/07/24 11/07/24 11/08/24
21:02 22:58 01:10
Glucose
POC Glucose 177 H 162 H 126 H
11/08/24 11/08/24 11/08/24
03:35 04:53 05:01
Glucose 119 H
POC Glucose 108 H 115 H
11/08/24
06:52
Glucose
POC Glucose 151 H
Patient Education
--- NOTE | 2024-11-08 08:26 | PTCARENOTE ---
Received patient from night RN, AOx3, pleasant and cooperative, conversant. 1:1 sitter remains. Afib on the monitor with a bundle branch block, rates well controlled in 70s, see doumentation, BP stable, palpable radial and pedal pulses b/l. Lung
sounds coarse with scattered rhonchi, on 2 liters nasal cannula saturating 96%. Right nare NGT to LIWS at 70 cm putting out greenish/brown drainage. 750 mls out overnight. Abdomen soft, round, obese, hypoactive bowel sounds. Rectal trumpet in place
draining brown loose stool. Urinal to void. Heel foams intact. Right DL PICC and left PIV patent, WNL. Insulin gtt ongoing. K rider infusing at this time. Pt's daughter updated by phone, IP cleared pt of droplet precautions, safe environment
maintained.
--- NOTE | 2024-11-08 08:27 | W.PN.INTV ---
Today's Communication / Plan
Recommendations
ABx per ID for worsening bilateral PNA
Tamiflu x 5-10 days
Continue Advair
Continue nebulized bronchodilators with Atrovent + DuoNebs prn for assistance with mucus expectoration
Continue mucinex
Continue low dose BB as he takes toprol-XL at home and part of his tachycardia may be beta-lj withdrawal in addition to reflection of his critical illness
Continue PO amio
Aspiration precautions
Weaned off insulin drip on 11/04, but due to hyperglycemia, insulin drip was resumed on 11/05 --> weaned off again today andn basal-bolus insulin to be continued; goal BG 140-180
Continue prednisone
Maintain SpO2 >90-94%
CPAP with sleep --> only tolerated for few hours last night
data warehouse administrator re-evall today; if passes then remove NGT; continue tube feeds in interim period
Psych consulted on 11/04 due to suicidal ideation; 1:1 DC'd today as per psych
Patient is stable for downgrade out of ICU to IMU. Pulmonary service will continue to briefly follow along.
Assessment
-
79-year-old gentleman with known history of JOHNNIE, noncompliant with nightly CPAP, morbid obesity, heart failure with preserved ejection fraction, developed [facility] distress at [facility]. Reportedly his roommate also had
respiratory symptoms. Patient tested positive for influenza A. In the emergency room he was hypoxic and hypotensive and was initially tried on BiPAP with suboptimal response. Patient was subsequently intubated and admitted to ICU. Patient
required pressor support for hypotension and was noted to be hypovolemic on initial admission and responded well to IV fluids.
#1. Acute hypoxic respiratory failure in the setting of influenza A infection with superimposed right sided multifocal pneumonia
-Patient's respiratory failure is multifactorial. This is a morbidly obese gentleman who was supposed to be on nightly CPAP for JOHNNIE who in addition has acute decompensated heart failure and recently contracted influenza A which led to further
respiratory decompensation. He failed BiPAP in the emergency room
-Since being here in the ICU, he has had worsening bilateral PNA, and was upgraded back to ICU from IMU level of care on 11/05/2024
-Strep pyogenes noted in the sputum on 10/31/2024 in addition to influenza A on 10/30/2024
-Patient was extubated on 11/03/2024 --> now on nasal cannula at 1-2 L/min, saturating 92%
-Antibiotics per infectious disease service, currently on meropenem s/p rocephin, Zyvox and Tamiflu --> ID changed ABx on 11/05 given fever since the day prior with worsening bilateral PNA seen on CT chest today
-Patient on chronic prednisone therapy for rheumatoid arthritis, was receiving IV steroids with Solu-Medrol 20 daily --> on 11/06 I transitioned back to PO prednisone now that he has NGT in place
#2. Shock, suspect septic shock - shock state resolved since 11/02/2024
-Follow-up on blood cultures (collected on 11/04 as well as 10/31/2024, which both show NGTD)
-Maintain MAP >65
-Procalcitonin elevated (although did have DEONDRE at the time)
-Lactate normalized as of 10/31
-Strep pyogenes noted on sputum culture from 10/31/2024
-Defer antibiotics to ID
- C. difficile antigen and toxins both negative on 11/06
#3. Diabetes mellitus II (uncontrolled � HbA1c: 8.1 on 09/11/2024)
-Weaned off insulin drip on 11/04/2024 onto basal�bolus insulin SQ dosing --> BG was >250 so insulin gtt resumed on 11/05 --> will wean back off insulin gtt today
-Short acting insulin aspart started yesterday with 5 units q6hr, and also on Lantus 30 units HS --> of note he does take 60 units HS at home; we will likely need to adjust his lantus dose; continue to monitor
-Now off tube feeds as patient pulled out his NGT after extubation on 11/03 --> resumed tube feeds on 11/06, however on AXR his bowel appears dilated, hence TF held since 11/07 and NGT now on LIWS ->clamp trial today and have ELECTRONIC SCANNER OPERATOR eval him again to see
if he can swallow safely
#4. History of asthma, morbid obesity and JOHNNIE on auto-CPAP at home
-Currently patient is not wheezing and is breathing comfortably on room air with SpO2 88-89%
-No hypercapnia seen on blood gases this admission
-Presentation not suggestive of COPD exacerbation
-Was previously on Advair 250mcg at home --> continue Advair here while hospitalized with donna Corley
-Continue with CPAP with sleep; outpatient follow-up with Dr. Palomares (last visit 04/17/2024) --> he only tolerated about 1-2 hours overnight on 11/05-11/06
-Patient ripped off his CPAP mask overnight on 11/04 - 11/05/2024, and refused to put back on
-Refused CPAP overnight (11/06 - 11/07)
-Only tolerated CPAP last night (11/07 - 11/08) for few hours --> his daughter and I both reinforced the need to continue with CPAP for the entirety of his sleep
#5. History of coronary artery disease status post PCI
-Troponin peaked at 0.035 on 10/30/2024 � no longer need to continue trending at this time
#6. Acute heart failure with reduced ejection fraction (LVEF 25-30% with dilated IVC per TTE from 11/05/2024; previousy his EF was 55-60% + RV poorly visualized on ECHO in 08/2024)
-Presentation earlier this admission did not appear to be related to volume overload --> patient looked hypovolemic on initial presentation as per Dr. Adams
-S/p 2 L bolus in the emergency room, followed by another 500 mL bolus after arrival to ICU
-Monitor strict I/O; trend UOP and BNP
-Lasix 40 mg IVP x 1 given on 11/03/2024 --> CXR from 11/05 shows mild pulmonary vascular congestion
-Transthoracic echo from 11/05/2024 shows acutely reduced LVEF at 25-30% with dilated IVC without respiratory variation � started diuresis on 11/06 with lasix 40mg IV BID --> last dose this AM, and cardiology to start home dose of bumex tomorrow
(11/09); monitor I/O + UOP
#7. Paroxysmal atrial fibrillation, rate is normal
-Amiodarone drip off since 11/07 and he was TRX to PO amio on 11/07
- Pt takes toprol-XL at home --> on 11/06 I started low dose metoprolol tartrate as BP can tolerated, as part of his tachycardia may be BB-withdrawal
-Continue Xarelto for anticoagulation via NGT
#8. History of rheumatoid arthritis with chronic prednisone use
-Continue systemic steroids --> resumed home prednisone 5mg daily on 11/07 now that he has NGT in place
#9. Suicidal ideation
-Patient said that he wanted to and RN appreciated suicidal ideation
-Consulted psychiatry
-1:1 DC'd today as per psych
DVT prophylaxis: Xarelto
GI Prophylaxis: PPI (home med)
Nutrition: ELECTRONIC SCANNER OPERATOR following --> defer diet to them (they will re-eval him today); ok to resume tube feeds in interim given improved colon distension on AXR today (11/08)
Discussion with daughter with Dr. Linares � 11/05/2024:
[facility] since after a lower extremity fracture due to a fall. He has been non-weight bearing up until about 10 days ago. The patient's roommate was coughing and brought to the hospital about 2 weeks ago.
He was supposed to come home this past weekend, but unfortunately has been hospitalized. He has been living with his daughter for last 2 years - she used to live in [place] and moved up here to [place] to have her dad move in with her. He was up to
walking about 100 yards over the last 2 weeks. She would like to continue full medical management.
Patient is stable for downgrade out of ICU to IMU. Pulmonary service will continue to briefly follow along.
Total time spent today was 77 minutes for this encounter. Time includes reviewing laboratory test/imaging results, reviewing pertinent medical records, obtaining and reviewing medical history, performing an appropriate exam, ordering medications,
tests and procedures. Time also includes documentation of this encounter, coordinating patient care and communicating with other healthcare professionals. Total time does not include separately billed tests performed on this date of service.
Subjective Dataa
Subjective Data
Date of Service:
Date of Service: November 08, 2024
Chief Complaint: Vmware Systems Administrator Follow Up
Subjective:
Patient was seen and evaluated this morning. He is much more awake and alert today, conversing and in no acute distress. Heart rate 85, saturating 88% on RA and BP 106/60. 750cc output from NGT overnight. Currently on insulin gtt at 1.2units/hr.
Wore CPAP for few hours last night. His daughter, Tiny, was present during rounds and I answered all her questions. The patient denies chest pain, LOPEZ, nausea, fevers or chills.
Review of Systems
General: Pain (Negative unless mentioned above)
Objective Data
Data Reviewed
Vital Signs / I&O / Oxygen:
Vital Signs
Temp Pulse Resp BP Pulse Ox
97.7 F 87 10 105/72 94
11/08/24 03:20 11/08/24 08:00 11/08/24 08:00 11/08/24 08:00 11/08/24 08:00
Intake and Output
11/07/24 11/08/24 11/09/24
06:59 06:59 06:59
Intake Total 1539.2 / 1625.9 1321.3 / 1348.0 . / .7
Output Total 2035 3172 / 3172
Balance -496.8 / -438.1 -1850.7 / -1824.0 .7 / .7
SaO2 [A/C] 98
SaO2 94
Nasal Cannula flow liters per 2.5
minute
Physical Exam
General: Respiratory Distress (n), Comfortable, Chills (n) and Sweats (n)
HEENT: Normocephalic, Anicteric and Other (thick neck)
Cardiovascular: Irregular Rhythm (Irregularly irregular), Rub (n) and Peripheral Edema (negative)
Respiratory: Clear, Wheeze (negative), Crackles (negative), Rhonchi (Bilateral), Non-Labored Respirations and Stridor (n)
GI: Soft, Distended (abdominal obesity), Non Tender and Normal Bowel Sounds
Neurology: Awake, Alert and Tremors (n)
Skin: Warm, Dry and Jaundice (n)
Labs/Micro/Reports
Lab Data
11/08/24 04:53
11/08/24 04:53
Microbiology
11/05/24 14:38 Blood/Venous Blood Culture - Preliminary
No Growth in 48 hours- Final report to follow
11/04/24 10:35 Blood/Venous Blood Culture - Preliminary
No Growth in 72 hours- Final report to follow
11/06/24 13:18 Feces/Stool C. difficile GDH Antigen & Toxins - Final
Negative for toxigenic C.difficile
11/06/24 13:18 Feces/Stool - Final
Negative for Norovirus GI and GII.
[2024-11-08] MEDS: DELTASONE 5 MG TUBE (09:34)
[2024-11-08] MEDS: ROBITUSSIN 200 MG TUBE ×2 (09:34→13:27)
[2024-11-08] MEDS: FLOMAX 0.4 MG TUBE (09:34)
[2024-11-08] MEDS: XARELTO 20 MG TUBE (09:34)
[2024-11-08] MEDS: LOPRESSOR 12.5 MG TUBE (09:34)
[2024-11-08 09:35] LABS: Glucose - Point of Care 119 mg/dl (70-99)
[2024-11-08] MEDS: PROSCAR 5 MG TUBE (09:35)
[2024-11-08] MEDS: LAC HYDRIN, AM LACTIN LOTION 1 APPLIC TOPICAL (09:35)
[2024-11-08] MEDS: PACERONE 400 MG PO ×2 (09:35→20:11)
[2024-11-08] MEDS: CYMBALTA DELAYED RELEASE 60 MG PO (09:35)
[2024-11-08] MEDS: LASIX 40 MG IV (09:36)
[2024-11-08] MEDS: PROTONIX IV 40 MG IV (09:37)
[2024-11-08] MEDS: NSS (PRESERVATIVE FREE) 10 ML IV (09:37)
[2024-11-08] MEDS: NEURONTIN 900 MG TUBE (09:38)
[2024-11-08] MEDS: MIRALAX TUBE (09:38)
[2024-11-08] MEDS: TAMIFLU 75 MG TUBE (09:43)
--- NOTE | 2024-11-08 09:53 | W.PN.ID1 ---
Date of Service
Date of Service: November 08, 2024
Today's Communication
continue linezolid, meropenem and tamiflu
Assessment / Plan
# Recurrence of fever- resolved
# Leukocytosis resolved
# Aspiration pneumonia
# MRSA colonized
# Multiple stated medication and antibiotic allergies
- Repeat bcx x 2 neg to date. Repeat COVID neg.
- 11/05/24 CT c/a/p patchy lung opacity; diffuse gaseous distention of colon, elongation and tortuous colon.
- C. diff neg; norovirus PCR negative
- Continue linezolid/meropenem (d4 of 7)
- Aspiration precaution.
- NGT decompression for colon gaseous distention
- Follow temps/wbc
# Influenza A infection present on admission.
- Vaccinated status
- On Oseltamivir intermittent interruptions due to npo/loss of enteral access
- NGT re-inserted 11/06.
- final day of tamiflu
- DC droplet precaution when afebrile.
# Superimposed group A strep pneumonia, present on admission
# s/p Acute hypoxemic respiratory failure, extubated 11/03
-Completed effective abx (d9)
# Suicide ideation
-Psychiatry following
# Afib with RVR
-Cardiology following
# s/p Septic shock
# Conditions PROCESS TRAINER
DM2
neuropathy
COPD
Afib hx ablation, cardioversion
CAD s/p stent
HFpEF
RA on MTX, leucovorin, folic acid, 5mg prednisone
HTN
dyslipidemia
sleep apnea on CPAP
nephrolithiasis
Chronic back pain
BPH
Sacral decubitus
class III obesity
bilateral TKR
right SONIA
Spine surgery
hernia repair
esophageal stricture dilation
BLE fracture
Chief Complaint
-: Fever, Clinical Sepsis, Pneumonia and Other (Flu)
Subjective / Review of Systems
afebrile
bp stable
now on 2.5 L of O2
bilious output from NGT
no complaints
patient hearing some bowel sounds
Vital Signs / Physical Exam
Vital Signs
Vital Signs
Temp Pulse Resp BP Pulse Ox
97.7 F 91 10 105/92 94
11/08/24 03:20 11/08/24 09:34 11/08/24 08:00 11/08/24 09:34 11/08/24 08:00
Physical Exam
Constitutional: Acutely Ill and Chronically Ill
Cardiovascular: Regular Rate and S1/S2; Negative Murmur or Rub
Pulmonary: Clear and Symmetric; Negative Wheezes or Rales
Gastrointestinal: Soft, Non Tender, Non Distended and Normal Bowel Sounds
Skin: Warm and Dry; Negative Rash or Jaundice
Objective Data
Lab Data
Lab Results
11/08/24 04:53
11/08/24 04:53
PT 17.8 Sec (11.4-14.6) H 11/04/24 04:40
INR 1.44 11/04/24 04:40
APTT 32.9 Sec (23.4-35.0) 11/04/24 04:40
Estimated Creat Clear 91 ml/min 11/08/24 04:53
Lactic Acid 1.7 mmol/L (0.7-2.0) 10/31/24 04:49
Total Bilirubin 0.8 mg/dl (0.2-1.3) 11/08/24 04:53
AST 106 U/L (17-59) H 11/08/24 04:53
ALT 115 U/L (0-50) H 11/08/24 04:53
Alkaline Phosphatase 113 U/L (38-126) 11/08/24 04:53
Most recent labs reviewed.
Micro Results:
11/05/24 14:38 Blood Culture - Preliminary
Blood/Venous No Growth in 48 hours- Final report to follow
11/04/24 10:35 Blood Culture - Preliminary
Blood/Venous No Growth in 72 hours- Final report to follow
11/06/24 13:18 C. difficile GDH Antigen & Toxins - Final
Feces/Stool Negative for toxigenic C.difficile
- Final
Negative for Norovirus GI and GII.
10/31/24 02:39 Blood Culture - Final
Blood/Venous No Growth - Final Report
10/31/24 02:39 Blood Culture - Final
Blood/Venous No Growth - Final Report
10/31/24 08:59 Respiratory Culture - Final
Sputum Streptococcus pyogenes
Gram Stain - Final
10/31/24 02:56 Urine Culture - Final
Urine NO GROWTH
10/31/24 04:00 Legionella Urinary Antigen - Final
Urine Negative for Legionella pneumophila Serogroup 1 antigen.
A negative result does not rule out the possiblity of
Legionella infection due to other serogroups or species of
Legionella. Clinical correlation is recommended.
Streptococcus pneumoniae Antigen (M - Final
Negative for Streptococcus pneumoniae antigen.
A negative result does not exclude infection with
Streptococcus pneumoniae. Clinical correlation is
recommended.
10/30/24 23:23 Influenza Types A & B (YOKASTA) - Final
Nasal Swab Influenza A Positive, NAAT
10/30/24 CXR: Endotracheal tube with tip in trachea above the joseluis and nasogastric tube extending into the abdomen with tip off the image.
10/30/24 CXR: Low lung volumes with crowding of central/vascular markings. No focal consolidation to suggest pneumonia, pneumothorax or pleural effusion.
10/31/24 CT C/A/P: No evidence of pulmonary embolism or thoracic aortic dissection. Mild bibasilar subsegmental atelectasis, otherwise clear lungs. Severe coronary arterial calcification. Please correlate with symptoms of and risk factors for
coronary artery disease, with further workup as clinically appropriate. Findings suggestive of constipation. No evidence of intestinal obstruction or bowel inflammatory process. Scattered pancreatic calcifications suggestive of mild chronic
pancreatitis.
11/02/24 CXR: Small opacities projecting over the mid and lower right lung which may represent atelectasis, however pneumonia could appear similar.
11/04/24 CXR: Mild pulmonary vascular congestion. Patchy opacities within the right upper and left lower lung zones
11/05/24 CT C/A/P: Patchy parenchymal opacity within both lungs, increasing from prior CT, and most likely pneumonia. Moderate diffuse gaseous distention of the colon. There is also elongation and tortuosity of the colon. Air is present within
nondilated loops of small bowel. No evidence for free intraperitoneal air.
--- NOTE | 2024-11-08 09:55 | W.PN.CD ---
Today's Communication / Plan
-
transition back to prior bumex 1mg daily
add farxiga 10mg daily
continue metoprolol: transition to succinate when taking PO
continue xarelto
we will be available as needed: please call with questions
we will arrange for outpatient follow up, and repeat echo as outpatient
Impression / Plan
-
Flu A:
-received Tamiflu
PNA, strep pyrogenes:
-on ABX and ID is following
TME:
-currently not very conversant
AFIB: persistent (vs permanent)
-rates improved
-continue metoprolol tartrate 12.5mg bid via tube
-transition succinate when able to take PO
-continue Xarelto 20mg daily
Upcgy-vt-tintjwk HFrEF:
-EF previously preserved, but now reduced as below
-improved s/p IV lasix
-transition back to prior bumex 1mg daily
-add farxiga 10mg daily
CAD with hx stenting:
-on Xarelto, statin as OP
-denies any CP
Cardiomyopathy, type unknown:
-in setting of septic shock/acute illness, but also known CAD with hx LAD stenting
-Echo 11/06/24: Severely reduced left ventricular systolic function. Left ventricular ejection fraction is 25-30% by visual assessment. The basal leo are best preserved, but all leo are hypokinetic. The IVC is dilated and does not demonstrate
normal respiratory variation. Compared to the prior 09/11/24, the ejection fraction was previously normal is now 25-30%.
-not appropriate for ischemic eval at this time (acute infectious illness, no CP or ischemic EKG changes).
-GDMT limited by BP: currently on beta lj and adding farxiga
-can assess for entresto and aldactone as outpatient if BP improves, and EF remains depressed
-repeat echo as outpatient
Physical Exam
Vital Signs/Labs
Vital Signs
Temp Pulse Resp BP Pulse Ox
97.7 F 91 10 105/92 94
11/08/24 03:20 11/08/24 09:34 11/08/24 08:00 11/08/24 09:34 11/08/24 08:00
11/07/24 11/08/24 11/09/24
06:59 06:59 06:59
Actual Weight 131.9 kg 129.9 kg
11/08/24 04:53
11/08/24 04:53
PT 17.8 Sec (11.4-14.6) H 11/04/24 04:40
INR 1.44 11/04/24 04:40
APTT 32.9 Sec (23.4-35.0) 11/04/24 04:40
Magnesium 2.3 mg/dl (1.6-2.3) 11/05/24 03:47
Triglycerides 157 mg/dl (10-149) H 11/06/24 03:26
10/30/24 11/04/24 11/05/24
23:23 04:13 03:47
Pmy-G-Woqgyalzvvr Pept [id number]
Physical Exam
Constitutional: No acute distress
EENT: Moist mucous membranes
Cardiovascular: Pedal edema is absent, JVD pressure is normal and Systolic murmur absent
Respiratory: Respiratory effort normal
Neuro/Psych: Alert
Data Reviewed
-
Date of Service: November 08, 2024
EKG: Other (Tele: A fib )
Labs: Labs Reviewed by me
[2024-11-08] MEDS: FARXIGA 10 MG TUBE (11:27)
[2024-11-08 11:59] LABS: Glucose - Point of Care 163 mg/dl (70-99)
--- NOTE | 2024-11-08 12:48 | W.PN.HOSP.TC ---
Today's Communication/Plan
-
Ileus improved.
Remove NG tube
Advance diet as recommended by speech.
Transition to oral Bumex
Transition to long-acting beta-lj
Initiated on Farxiga
Continue holding lisinopril monitor blood pressure trend
Physical therapy evaluation
Assessment / Plan
Assessment / Plan
#Acute hypoxic respiratory failure. Resolved. Weaned off supplemental oxygen as of 11/08.
#Ventilator dependent respiratory failure, extubated 11/03
#Influenza + strep pyogenes pneumonia. Suspected aspiration pneumonia
# CT imaging appears worse
�Antibiotics, Tamiflu
-Switch to Meropenem, Linezolid
� Extubated 11/03
� Pulmonary on board
� Wean O2, O2 goal greater than 2%
� BiPAP at night, daughter is bringing in his own NIV
#Septic shock, shock resolved 11/02
#Persistent fevers
� Continue antibiotics - Meropenem, Linezolid
� Recurrent febrile episodes improved
� F/u Repeat blood cultures
� ID consulted
� Can mix Tamiflu suspension with applesauce once tolerating p.o.
� Holding antihypertensives
- - F/u Norovirus, CDiff negative
# Ileus
Moderate diffuse gaseous distention of the colon.
Improving with resolved abdominal pain. Regular BM over the last 24 hours.
NG tube to be removed on 11/08
Evaluated by speech and swallow
Start pur�ed diet with thin liquids
#Paroxysmal atrial fibrillation
-Status post DCCV x 2; nonvalvular; Home regimen includes Xarelto and metoprolol succinate
�NGT back in, resume xarelto
� Continue amiodarone - switch to PO
-Transition to metoprolol succinate 50 mg twice daily
-Continue with HR goal <120 with critical illness
-Monitor on telemetry here
�Switch to Xopenex
#Acute HFpEF
-Last echocardiogram with preserved LVEF, dilated RV though unable to assess RV systole
-BNP 20,000
-Repeat ECHO - EF 25%
-Transition off IV Lasix to Bumex 1 mg daily. Continue potassium supplementation.
-Continue holding lisinopril monitoring BP trend
-Initiated on Farxiga
-will need LHC in the future if/once he recovers
#Depression
-suicidal ideation
-pscyh consulted - cleared
-Resume preadmission regimen including duloxetine
#Asthma
#JOHNNIE
-Patient with BiPAP dependent respiratory failure
-Home regimen includes Advair for maintenance, DuoNebs as needed
-Restart advair
-Auto-CPAP at home
-f/u Pulm outpt (Dr. Palomares)
#Transaminitis
� I suspect secondary to heart failure, congestive hepatopathy versus drug-induced
- Monitor with diuresis
#CAD s/p PCI
-Home medications include atorvastatin, metoprolol, and ACEi; not on antiplatelet but is on Xarelto
-Unknown when stent was placed or which coronary it was placed in
-Holding beta-lj due to circulatory shock, remains on Xarelto
#Rheumatoid arthritis
-Home medications include methotrexate and prednisone 5 mg daily
-No known complications of CAD or ILD
-Holding methotrexate, continued on steroid
-No signs of flare
#T2DM with neuropathy
Diet has been advanced.
Stop IV insulin transition to subcu regimen Lantus 20/NovoLog 5 AC and monitor oral intake
#BPH
-Home regimen includes tamsulosin and finasteride
-Currently with Wallace catheter in place for strict I's and O's
-Will perform TOV prior to discharge
DVT prophylaxis: Home Xarelto -
GI : NG tube
Diet: Tube feeds with Jevity 1.5 - holding, can restart today
CODE STATUS: Currently full code, family to reconsider based on progression over next day or two
Anticipated Discharge: > 48 hours
Subjective/Interval History
-
Date of Service: November 08, 2024
Objective Data
-
Labs:
Laboratory Results
11/08/24
04:53
WBC 9.0
Hgb 10.6 L
Hct 32.9 L
Plt Count 255
Sodium 142
Potassium 3.6
Chloride 101
Carbon Dioxide 37 H
BUN 47 H
Creatinine 0.9
Glucose 119 H
Calcium 8.2 L
Total Bilirubin 0.8
AST 106 H
ALT 115 H
Alkaline Phosphatase 113
Vital Signs:
Vital Signs
Temp Pulse Resp BP Pulse Ox
98.2 F 91 10 105/92 94
11/08/24 12:04 11/08/24 09:34 11/08/24 08:00 11/08/24 09:34 11/08/24 08:00
I&O
11/07/24 11/08/24 11/09/24
06:59 06:59 06:59
Intake Total 1539.2 / 1625.9 1321.3 / 1348.0 26.7 / 26.7
Output Total 2035 3172 / 3172
Balance -496.8 / -438.1 -1850.7 / -1824.0 26.7 / 26.7
Physical Exam
-
General: Well Developed, Comfortable and Morbidly Obese
HEENT: Normocephalic, Atraumatic and Moist Mucous Membranes
Respiratory: Rhonchi and Non Labored Respirations; Negative Accessory Resp Muscle Use
Cardiac: Regular Rhythm and S1/S2; Negative Murmur, Rub or Gallop
GI: Soft, Nontender, Nondistended and Normal Bowel Sounds
Genito-urinary: Clear Urine and Wallace
Musculoskeletal: No Clubbing, No Cyanosis and No Edema
Skin: Warm and Dry; Negative Rash
Neuro: Awake, Alert and Nonfocal/Grossly Intact
Psych: Calm
--- NOTE | 2024-11-08 12:50 | PTOTSP ---
Speech Therapy Follow-up Note:
Pt exhibits signs concerning for questionable oropharyngeal dysphagia. Initially suspected oral impairments in relation to oral holding, however pt's daughter reported this is baseline for pt. Unable to reliably attribute coughing during PO intake
to penetration/aspiration events given frequent coughing outside of PO in the setting of flu. Given that pt not appropriate for VSE (body habitus and limitations of size of fluoro suite are likely barriers), passed 3oz swallow screen, and WBC WNL,
pt appears to be appropriate to initiate CAUTIOUS oral diet.
Recommend:
1. Initiate CAUTIOUS diet of IDDSI Level 4 (puree) and thin liquids
2. Medications as best tolerated
3. d/c oral diet if concerned for aspiration or worsening in respiratory status/chest imaging. LOW THRESHOLD for NPO
4. 1:1 supervision for the following strategies: upright positioning; small bites/sips; slow rate; alternate solids/liquids; allow time for O2 to recover between bites if brief desaturations noted
5. CHEESE GRADER to follow to monitor tolerance of current diet level, determine need for further modifications, and assess ability for diet upgrades.
[2024-11-08] MEDS: LANTUS 0.2 UNITS SC (13:27)
[2024-11-08 13:34] LABS: Glucose - Point of Care 159 mg/dl (70-99)
--- NOTE | 2024-11-08 13:37 | W.PN.UPDATE ---
Update Note
Progress Note Update
PATIENT SEEN CHART REVIEWED. DISCUSSED W NURSING. THE PATIENT IS IN VERY GOOD SPIRITS. HIS GRANDKIDS ARE VISITING TOMORROW. HE WAS EVEN UP TO SPARRING ABOUT PRESIDENT TRUMP HIS CHOICE FOR PRESIDENT! AT THIS POINT WILL DC ONE TO ONE WHICH NURSING
REQUESTED HE IS NOT THINKING ABOUT SELF INJURY. PSYCH WILL SIGN OFF BUT TOLD HIM IF HE WOULD LIKE TO TALK TO US IN THE FUTURE JUST LET NSG KNOW.
--- NOTE | 2024-11-08 14:06 | CM ---
CM following re: discharge planning.
Discussed in rounds, reviewed pt's chart, met with pt and pt's daughter Tiny at bedside.
PT and OT updated evaluations noted - acute rehab level of care recommended. CM discussed it with pt and his daughter and both expressed their agreement and [facility] requested.
A referral to [facility] made.
D/C plan: Plan A: [facility] if accepted. Plan B: return back to [facility] if [facility] denied.
CM will follow with discharge plan updates as hospitalization progresses
--- NOTE | 2024-11-08 14:29 | PTCARENOTE ---
Glucose rechecked at 13:15 prior to giving Lantus -159. Clarification rec'd from pharmacist to keep insulin gtt running for 1 hr after Lantus administration as per Derek Mayes [employer]...gtt was resumed for one hour. Pt turned and repositioned,
linens changed for spillage of urinal and leakage of rectal tube. Pt set up to eat lunch tray and is feeding self. All VSS.
[2024-11-08 17:10] LABS: Glucose - Point of Care 278 mg/dl (70-99)
[2024-11-08] MEDS: NEURONTIN 900 MG PO ×2 (18:27→22:12)
[2024-11-08] MEDS: NOVOLOG FLEXPEN-MODERATE RESISTANCE 5 UNITS SC (18:27)
[2024-11-08] MEDS: DUONEB 3 ML INH (19:35)
[2024-11-08] MEDS: DESENEX/MITRAZOL/ZEASORB 1 APPLIC TOPICAL (20:10)
[2024-11-08] MEDS: LOTRIMIN 1% CREAM 1 APPLIC TOPICAL (20:10)
[2024-11-08] MEDS: MUCINEX 1200 MG PO (20:11)
--- NOTE | 2024-11-08 20:37 | PTCARENOTE ---
Received pt from previous RN. Pt is AAOx3, drowsy @ times. Afib w/ BBB on the monitor. On RA, CPAP HS, lungs coarse/rhonchi. Percussion Q4 for [address], diarrhea. Incont of urine @ times. CHG and mouth care provided. Pt is laying in bed
with call cote in reach. Safe environment maintained.
[2024-11-08 21:52] LABS: Glucose - Point of Care 305 mg/dl (70-99)
[2024-11-08] MEDS: LANTUS 0.3 UNITS SC (22:15)
[2024-11-09] VITALS (21 sets, daily range): BP systolic 89–118; BP diastolic 60–90; PULSE 85–88; BMI 39.6
[2024-11-09 00:56] LABS: Glucose - Point of Care 214 mg/dl (70-99)
[2024-11-09] MEDS: MERREM 500 MG IV ×4 (02:15→20:03)
[2024-11-09] MEDS: STERILE WATER FOR INJECTION 10 ML IV ×4 (02:16→20:03)
[2024-11-09 03:58] LABS: Hematocrit 31.4 % (39.0-52.0); Mean Corp Hgb Conc. 31.8 g/dL (33.0-37.0); Mean Corpuscular Hgb 30.8 pg (27.0-31.0); Mean Corpuscular Volume 96.6 fL (80.0-94.0); Mean Platelet Volume 11.7 fL (7.4-10.4); Platelet Count 232 10^3/uL (130-400); Red Blood Cell Count 3.25 10^6/uL (4.70-6.10); Red Cell Dist. Width 18.4 % (11.5-14.5); White Blood Cell Count 8.2 10^3/uL (4.8-10.8)
[2024-11-09 04:07] LABS: ALT (SGPT) 92 U/L (0-50); AST (SGOT) 58 U/L (17-59); Albumin 2.7 g/dl (3.5-5.0); Alkaline Phosphatase 108 U/L (38-126); Blood Urea Nitrogen 39 mg/dl (9-20); Calcium 8.1 mg/dl (8.4-10.2); Carbon Dioxide 35 mmol/L (22-30); Chloride 97 mmol/L (98-107); Estimated Creatinine Clearance 83 ml/min; Glucose 180 mg/dl (70-99); Magnesium 2.1 mg/dl (1.6-2.3); Phosphorus 3.8 mg/dl (2.5-4.5); Potassium 3.6 mmol/L (3.5-5.1); Sodium 137 mmol/L (135-145); Total Bilirubin 0.7 mg/dl (0.2-1.3); Total Protein 6.4 g/dl (6.3-8.2); Triglycerides 203 mg/dl (10-149); eGFR > 60.00
[2024-11-09] MEDS: ZYVOX 600 MG 300 IV ×2 (05:10→18:02)
--- NOTE | 2024-11-09 07:25 | W.PN.ID1 ---
Date of Service
Date of Service: November 09, 2024
Today's Communication
- Continue linezolid/meropenem (d5 of 7)
Assessment / Plan
# Leukocytosis resolved
# Aspiration pneumonia
# MRSA colonized
# Multiple stated medication and antibiotic allergies
- Repeat bcx x 2 neg to date. Repeat COVID neg.
- 11/05/24 CT c/a/p patchy lung opacity; diffuse gaseous distention of colon, elongation and tortuous colon.
- C. diff neg; norovirus PCR negative
- Continue linezolid/meropenem (d5 of 7)
- Aspiration precaution.
- NGT decompression for colon gaseous distention
- Follow temps/wbc
# Influenza A infection present on admission.
- Vaccinated status
- On Oseltamivir intermittent interruptions due to npo/loss of enteral access
- NGT re-inserted 11/06.
- completed tamiflu
- DC droplet precaution when afebrile.
# Superimposed group A strep pneumonia, present on admission
# s/p Acute hypoxemic respiratory failure, extubated 11/03
-Completed effective abx (d9)
# Suicide ideation
-Psychiatry following
# Afib with RVR
-Cardiology following
# s/p Septic shock
# Conditions REGISTERED NURSE CARDIAC TELEMETRY
DM2
neuropathy
COPD
Afib hx ablation, cardioversion
CAD s/p stent
HFpEF
RA on MTX, leucovorin, folic acid, 5mg prednisone
HTN
dyslipidemia
sleep apnea on CPAP
nephrolithiasis
Chronic back pain
BPH
Sacral decubitus
class III obesity
bilateral TKR
right SONIA
Spine surgery
hernia repair
esophageal stricture dilation
BLE fracture
Chief Complaint
-: Clinical Sepsis, Pneumonia and Other (Flu)
Subjective / Review of Systems
afebrile
bp stable off of pressors
no events overnight
Vital Signs / Physical Exam
Vital Signs
Vital Signs
Temp Pulse Resp BP Pulse Ox
97.5 F 79 14 97/60 94
11/09/24 07:15 11/09/24 06:00 11/09/24 06:00 11/09/24 06:00 11/09/24 06:00
Physical Exam
Constitutional: No Acute Distress
Cardiovascular: Regular Rate and S1/S2; Negative Murmur or Rub
Pulmonary: Symmetric, Wheezes and Coarse; Negative Rales
Gastrointestinal: Soft, Non Tender, Non Distended and Normal Bowel Sounds
Skin: Warm and Dry; Negative Rash or Jaundice
Objective Data
Lab Data
Lab Results
11/09/24 03:23
11/09/24 03:23
PT 17.8 Sec (11.4-14.6) H 11/04/24 04:40
INR 1.44 11/04/24 04:40
APTT 32.9 Sec (23.4-35.0) 11/04/24 04:40
Estimated Creat Clear 83 ml/min 11/09/24 03:23
Lactic Acid 1.7 mmol/L (0.7-2.0) 10/31/24 04:49
Total Bilirubin 0.7 mg/dl (0.2-1.3) 11/09/24 03:23
AST 58 U/L (17-59) 11/09/24 03:23
ALT 92 U/L (0-50) H 11/09/24 03:23
Alkaline Phosphatase 108 U/L (38-126) 11/09/24 03:23
Most recent labs reviewed.
Micro Results:
11/05/24 14:38 Blood Culture - Preliminary
Blood/Venous No Growth in 72 hours- Final report to follow
11/04/24 10:35 Blood Culture - Preliminary
Blood/Venous No Growth in 4 days- Final report to follow
11/06/24 13:18 C. difficile GDH Antigen & Toxins - Final
Feces/Stool Negative for toxigenic C.difficile
- Final
Negative for Norovirus GI and GII.
10/31/24 02:39 Blood Culture - Final
Blood/Venous No Growth - Final Report
10/31/24 02:39 Blood Culture - Final
Blood/Venous No Growth - Final Report
10/31/24 08:59 Respiratory Culture - Final
Sputum Streptococcus pyogenes
Gram Stain - Final
10/31/24 02:56 Urine Culture - Final
Urine NO GROWTH
10/31/24 04:00 Legionella Urinary Antigen - Final
Urine Negative for Legionella pneumophila Serogroup 1 antigen.
A negative result does not rule out the possiblity of
Legionella infection due to other serogroups or species of
Legionella. Clinical correlation is recommended.
Streptococcus pneumoniae Antigen (M - Final
Negative for Streptococcus pneumoniae antigen.
A negative result does not exclude infection with
Streptococcus pneumoniae. Clinical correlation is
recommended.
10/30/24 23:23 Influenza Types A & B (YOKASTA) - Final
Nasal Swab Influenza A Positive, NAAT
10/30/24 CXR: Endotracheal tube with tip in trachea above the joseluis and nasogastric tube extending into the abdomen with tip off the image.
10/30/24 CXR: Low lung volumes with crowding of central/vascular markings. No focal consolidation to suggest pneumonia, pneumothorax or pleural effusion.
10/31/24 CT C/A/P: No evidence of pulmonary embolism or thoracic aortic dissection. Mild bibasilar subsegmental atelectasis, otherwise clear lungs. Severe coronary arterial calcification. Please correlate with symptoms of and risk factors for
coronary artery disease, with further workup as clinically appropriate. Findings suggestive of constipation. No evidence of intestinal obstruction or bowel inflammatory process. Scattered pancreatic calcifications suggestive of mild chronic
pancreatitis.
11/02/24 CXR: Small opacities projecting over the mid and lower right lung which may represent atelectasis, however pneumonia could appear similar.
11/04/24 CXR: Mild pulmonary vascular congestion. Patchy opacities within the right upper and left lower lung zones
11/05/24 CT C/A/P: Patchy parenchymal opacity within both lungs, increasing from prior CT, and most likely pneumonia. Moderate diffuse gaseous distention of the colon. There is also elongation and tortuosity of the colon. Air is present within
nondilated loops of small bowel. No evidence for free intraperitoneal air.
[2024-11-09 08:08] LABS: Glucose - Point of Care 200 mg/dl (70-99)
[2024-11-09] MEDS: MIRALAX PO (08:14)
--- NOTE | 2024-11-09 08:17 | W.PN.PUL3 ---
Today's Communication / Plan
-
ABx per ID for bilateral PNA
s/p course of tamiflu
Continue Advair
Continue prn DuoNebs for assistance with mucus expectoration
Change atrovent to spiriva
Continue mucinex
Continue toprol-XL (home med)
Continue PO amio
Aspiration precautions
Weaned off insulin drip on 11/04, but due to hyperglycemia, insulin drip was resumed on 11/05 --> weaned off again on 11/08; continue basal-bolus insulin, and raise lantus to 35 U HS, and 10 U daily; give a dose of NPH now give BG >200 this AM; goal BG
140-180
Continue prednisone
Maintain SpO2 >90-94%
CPAP with sleep --> wore for majority of night last night
Diet as per MODELING AGENT
Psych consulted on 11/04 due to suicidal ideation; 1:1 DC'd on 11/08 as per psych
Pulmonary service will continue to follow along
Assessment
-
79-year-old gentleman with known history of JOHNNIE, noncompliant with nightly CPAP, morbid obesity, heart failure with preserved ejection fraction, developed respiratory distress at [facility] facility. Reportedly his roommate also had
respiratory symptoms. Patient tested positive for influenza A. In the emergency room he was hypoxic and hypotensive and was initially tried on BiPAP with suboptimal response. Patient was subsequently intubated and admitted to ICU. Patient
required pressor support for hypotension and was noted to be hypovolemic on initial admission and responded well to IV fluids.
#1. Acute hypoxic respiratory failure in the setting of influenza A infection with superimposed right sided multifocal pneumonia
-Patient's respiratory failure is multifactorial. This is a morbidly obese gentleman who was supposed to be on nightly CPAP for JOHNNIE who in addition has acute decompensated heart failure and recently contracted influenza A which led to further
respiratory decompensation. He failed BiPAP in the emergency room
-Since being here in the ICU, he has had worsening bilateral PNA, and was upgraded back to ICU from IMU level of care on 11/05/2024 --> he has markedly improved and was downgraded to IMU on 11/08/2024
-Strep pyogenes noted in the sputum on 10/31/2024 in addition to influenza A on 10/30/2024
-Patient was extubated on 11/03/2024 --> now on RA saturating 92% - on 11/08 he was on NC at 1-2 L/min saturating 92%
-Antibiotics per infectious disease service, currently on meropenem s/p rocephin + Zyvox; last dose of Tamiflu was 11/08--> ID changed ABx on 11/05 given fever since the day prior with worsening bilateral PNA seen on CT chest today
-Patient on chronic prednisone therapy for rheumatoid arthritis, was receiving IV steroids with Solu-Medrol 20 daily --> on 11/06 I transitioned back to PO prednisone
#2. Shock, suspect septic shock - shock state resolved since 11/02/2024
-Follow-up on blood cultures (collected on 11/04 as well as 10/31/2024, which both show NGTD)
-Maintain MAP >65
-Procalcitonin elevated (although did have DEONDRE at the time)
-Lactate normalized as of 10/31
-Strep pyogenes noted on sputum culture from 10/31/2024
-Defer antibiotics to ID
- C. difficile antigen and toxins both negative on 11/06
#3. Diabetes mellitus II (uncontrolled � HbA1c: 8.1 on 09/11/2024)
-Weaned off insulin drip on 11/04/2024 onto basal�bolus insulin SQ dosing --> BG was >250 so insulin gtt resumed on 11/05 --> weaned off insulin gtt on 11/08
-Short acting insulin aspart started on 11/07 with 5 units q6hr, and also on Lantus 30 units HS --> of note he does take 60 units HS at home; will raise lantus to 35 units at night and 10 units during the day as blood glucose still remains in the low
200s
-Patient passed MODELING AGENT evaluation on 11/08 � cautiously continue pur�ed diet with thin liquids with aspiration precautions
#4. History of asthma, morbid obesity and JOHNNIE on auto-CPAP at home
-Currently patient is not wheezing and is breathing comfortably on room air with SpO2 88-89%
-No hypercapnia seen on blood gases this admission
-Presentation not suggestive of COPD exacerbation
-Was previously on Advair 250mcg at home --> continue Advair here while hospitalized with donna Corley
-Continue with CPAP with sleep; outpatient follow-up with Dr. Palomares (last visit 04/17/2024) --> he only tolerated about 1-2 hours overnight on 11/05-11/06
-Patient ripped off his CPAP mask overnight on 11/04 - 11/05/2024, and refused to put back on
-Refused CPAP overnight (11/06 - 11/07)
-Only tolerated CPAP last night (11/07 - 11/08) for few hours --> his daughter and I both reinforced the need to continue with CPAP for the entirety of his sleep
-Wore CPAP for most of night on 11/08-11/09
#5. History of coronary artery disease status post PCI
-Troponin peaked at 0.035 on 10/30/2024 � no longer need to continue trending at this time
#6. Acute heart failure with reduced ejection fraction (LVEF 25-30% with dilated IVC per TTE from 11/05/2024; previousy his EF was 55-60% + RV poorly visualized on ECHO in 08/2024)
-Presentation earlier this admission did not appear to be related to volume overload --> patient looked hypovolemic on initial presentation as per Dr. Adams
-S/p 2 L bolus in the emergency room, followed by another 500 mL bolus after arrival to ICU
-Monitor strict I/O; trend UOP and BNP
-Lasix 40 mg IVP x 1 given on 11/03/2024 --> CXR from 11/05 shows mild pulmonary vascular congestion
-Transthoracic echo from 11/05/2024 shows acutely reduced LVEF at 25-30% with dilated IVC without respiratory variation � started diuresis on 11/06 with lasix 40mg IV BID --> last dose on AM of 11/08, and cardiology resumed home dose of bumex today
(11/09); monitor I/O + UOP
#7. Paroxysmal atrial fibrillation, rate is normal
-Amiodarone drip off since 11/07 and he was TRX to PO amio on 11/07
- Pt takes toprol-XL at home --> on 11/06 I started low dose metoprolol tartrate as BP can tolerated, as part of his tachycardia may be BB-withdrawal
-Continue Xarelto for anticoagulation via NGT
#8. History of rheumatoid arthritis with chronic prednisone use
-Continue systemic steroids --> resumed home prednisone 5mg daily on 11/07
#9. Suicidal ideation
-Patient said that he wanted to and RN appreciated suicidal ideation --> no longer having this sentiment
-Consulted psychiatry - recs appreciated
-1:1 DC'd today as per psych
DVT prophylaxis: Xarelto
GI Prophylaxis: PPI (home med)
Nutrition: Diet as per MODELING AGENT following; improved colon distension on AXR from 11/08
Discussion with daughter with Dr. Linares � 11/05/2024:
He has been at [facility] [place] ([facility]) since after a lower extremity fracture due to a fall. He has been non-weight bearing up until about 10 days ago. The patient's roommate was coughing and brought to the hospital about 2 weeks ago.
He was supposed to come home this past weekend, but unfortunately has been hospitalized. He has been living with his daughter for last 2 years - she used to live in [place] and moved up here to [place] to have her dad move in with her. He was up to
walking about 100 yards over the last 2 weeks. She would like to continue full medical management.
Pulmonary service will continue to briefly follow along.
Total time spent today was 38 minutes for this encounter. Time includes reviewing laboratory test/imaging results, reviewing pertinent medical records, obtaining and reviewing medical history, performing an appropriate exam, ordering medications,
tests and procedures. Time also includes documentation of this encounter, coordinating patient care and communicating with other healthcare professionals. Total time does not include separately billed tests performed on this date of service.
Subjective Data
-
Date of Service:
Date of Service: November 09, 2024
Chief Complaint: Pulmonary Follow Up
Subjective:
Patient seen and evaluated this morning. He remains awake, alert, speaking to me without any slurring of his words or sleepiness and is in no acute distress. Heart rate 98, saturating 92% on room air and BP 116/81. No acute events reported
overnight. Wore his CPAP overnight with no issues.
Review of Systems
General: Other (Negative unless mentioned above)
Objective Data
Data Reviewed
Vital Signs / I&O / Oxygen:
Vital Signs
Temp Pulse Resp BP Pulse Ox
97.5 F 80 16 99/64 92
11/09/24 07:15 11/09/24 08:24 11/09/24 08:24 11/09/24 08:18 11/09/24 08:24
Intake and Output
11/08/24 11/09/24 11/10/24
06:59 06:59 06:59
Intake Total 1321.3 / 1348.0 1794.6 / 1794.6
Output Total 3172 / 3172 1350 / 1350
Balance -1850.7 / -1824.0 444.6 / 444.6
SaO2 [A/C] 98
SaO2 92
Nasal Cannula flow liters per 2.5
minute
Physical Exam
General: Respiratory Distress (negative), Comfortable, Chills (negative) and Sweats (negative)
HEENT: Normocephalic, Anicteric and Other (Thick neck)
Cardiovascular: Irregular Rhythm (Irregularly irregular), Rub (negative), Peripheral Edema (negative) and Other (Tachycardic)
Respiratory: Wheeze (negative), Crackles (Bilaterally), Rhonchi (negative), Non-Labored Respirations and Stridor (negative)
GI: Soft, Distended, Non Tender and Normal Bowel Sounds
Neurology: Awake, Alert and Tremors (negative)
Skin: Warm, Dry, Cyanosis (negative) and Jaundice (negative)
Labs/Micro/Reports
Lab Data
11/09/24 03:23
11/09/24 03:23
Microbiology
11/05/24 14:38 Blood/Venous Blood Culture - Preliminary
No Growth in 72 hours- Final report to follow
11/04/24 10:35 Blood/Venous Blood Culture - Preliminary
No Growth in 4 days- Final report to follow
11/06/24 13:18 Feces/Stool C. difficile GDH Antigen & Toxins - Final
Negative for toxigenic C.difficile
11/06/24 13:18 Feces/Stool - Final
Negative for Norovirus GI and GII.
[2024-11-09] MEDS: ATROVENT NEBULES 0.5 MG INH (08:20)
[2024-11-09] MEDS: ADVAIR HFA 230/21 MCG INHALER 2 PUFF INH ×2 (08:21→19:20)
[2024-11-09] MEDS: SODIUM CHLORIDE 3% FOR INHALATION 1 VIAL INH ×2 (08:21→19:20)
[2024-11-09] MEDS: NOVOLOG FLEXPEN 5 UNITS SC ×3 (09:58→18:03)
[2024-11-09] MEDS: NOVOLOG FLEXPEN-MODERATE RESISTANCE 3 UNITS SC (09:58)
[2024-11-09] MEDS: PROTONIX 40 MG PO (10:06)
[2024-11-09] MEDS: CYMBALTA DELAYED RELEASE 60 MG PO (10:06)
[2024-11-09] MEDS: NEURONTIN 900 MG PO ×3 (10:06→22:09)
[2024-11-09] MEDS: VISBIOME 2 CAP PO (10:07)
[2024-11-09] MEDS: FLOMAX 0.4 MG PO (10:07)
[2024-11-09] MEDS: FARXIGA 10 MG PO (10:07)
[2024-11-09] MEDS: MUCINEX 1200 MG PO ×2 (10:07→20:02)
[2024-11-09] MEDS: ZYLOPRIM 100 MG PO (10:08)
[2024-11-09] MEDS: BUMEX 1 MG PO (10:08)
[2024-11-09] MEDS: THERAGRAN 1 TABLET PO (10:08)
[2024-11-09] MEDS: XARELTO 20 MG PO (10:08)
[2024-11-09] MEDS: PROSCAR 5 MG PO (10:08)
[2024-11-09] MEDS: VITAMIN C 500 MG PO (10:09)
[2024-11-09] MEDS: NSS (PRESERVATIVE FREE) 10 ML IV (10:10)
[2024-11-09] MEDS: LAC HYDRIN, AM LACTIN LOTION 1 APPLIC TOPICAL (10:11)
[2024-11-09] MEDS: DESENEX/MITRAZOL/ZEASORB 1 APPLIC TOPICAL ×2 (10:13→20:01)
[2024-11-09] MEDS: LOTRIMIN 1% CREAM 1 APPLIC TOPICAL ×2 (10:14→20:03)
[2024-11-09] MEDS: PACERONE 400 MG PO ×2 (10:28→20:02)
[2024-11-09] MEDS: DELTASONE 5 MG PO (10:28)
--- NOTE | 2024-11-09 12:44 | W.PN.HOSP.TC ---
Today's Communication/Plan
-
monitor BP
monitor POC-insulin adjusted
cont abx
cont IMU level of care as with soft bp
Assessment / Plan
Assessment / Plan
#Acute hypoxic respiratory failure. Resolved. Weaned off supplemental oxygen as of 11/08.
#Ventilator dependent respiratory failure, extubated 11/03
#Influenza + strep pyogenes pneumonia. Suspected aspiration pneumonia
�Antibiotics, Tamiflu
-Switch to Meropenem, Linezolid
� Extubated 11/03
� Pulmonary on board
� Wean O2, O2 goal greater than 2%
� BiPAP at night, daughter is bringing in his own NIV
#Septic shock, shock resolved 11/02
#Persistent fevers
� Continue antibiotics - Meropenem, Linezolid
� Recurrent febrile episodes improved
� F/u Repeat blood cultures remains negative.
� ID consulted
� Can mix Tamiflu suspension with applesauce once tolerating p.o.
- F/u Norovirus, CDiff negative
# Ileus
Moderate diffuse gaseous distention of the colon.
Improving with resolved abdominal pain. Regular BM over the last 24 hours.
NG tube to be removed on 11/08
Evaluated by speech and swallow
Start pur�ed diet with thin liquids
#Paroxysmal atrial fibrillation
-Status post DCCV x 2; nonvalvular; Home regimen includes Xarelto and metoprolol succinate
�NGT back in, resume xarelto
� Continue amiodarone - switch to PO
-Transition to metoprolol succinate decreased dose to 25mg BID as with soft BP. May need to adjust further if remains with soft BP
-Continue with HR goal <120 with critical illness
-Monitor on telemetry here
�Switch to Xopenex
#Acute HFpEF
-Last echocardiogram with preserved LVEF, dilated RV though unable to assess RV systole
-BNP 20,000
-Repeat ECHO - EF 25%
-Transition off IV Lasix to Bumex 1 mg daily. Continue potassium supplementation.
-Continue holding lisinopril monitoring BP trend
-Initiated on Farxiga
-will need LHC in the future if/once he recovers
#Depression
-suicidal ideation
-pscy consulted - cleared
-Resume preadmission regimen including duloxetine
#Asthma
#JOHNNIE
-Patient with BiPAP dependent respiratory failure
-Home regimen includes Advair for maintenance, DuoNebs as needed
-Restart advair
-Auto-CPAP at home
-f/u Pulm outpt (Dr. Palomares)
#Transaminitis
� I suspect secondary to heart failure, congestive hepatopathy versus drug-induced
- Monitor with diuresis
#CAD s/p PCI
-Home medications include atorvastatin, metoprolol, and ACEi; not on antiplatelet but is on Xarelto
-Unknown when stent was placed or which coronary it was placed in
-Holding beta-lj due to circulatory shock, remains on Xarelto
#Rheumatoid arthritis
-Home medications include methotrexate and prednisone 5 mg daily
-No known complications of CAD or ILD
-Holding methotrexate, continued on steroid
-No signs of flare
#T2DM with neuropathy
Diet has been advanced.
Stop IV insulin transition to subcu regimen.
Basal bolus regimen has been adjusted. Glargine 35 units nightly. Glargine 10 units daily. NovoLog 5 units AC
Adjust poc prn
#BPH
-Home regimen includes tamsulosin and finasteride
-Currently with Wallace catheter in place for strict I's and O's
-Will perform TOV prior to discharge
DVT prophylaxis: Home Xarelto -
CODE STATUS: Currently full code, family to reconsider based on progression over next day or two
Discussed with pulmonary
Anticipated Discharge: > 48 hours
Subjective/Interval History
-
Date of Service: November 09, 2024
watching tv
states breathing has improved
states his ability to shallow has improved
Objective Data
-
Labs:
Laboratory Results
11/09/24
03:23
WBC 8.2
Hgb 10.0 L
Hct 31.4 L
Plt Count 232
Sodium 137
Potassium 3.6
Chloride 97 L
Carbon Dioxide 35 H
BUN 39 H
Creatinine 1.0
Glucose 180 H
Calcium 8.1 L
Total Bilirubin 0.7
AST 58
ALT 92 H
Alkaline Phosphatase 108
Vital Signs:
Vital Signs
Temp Pulse Resp BP Pulse Ox
97.4 F 106 16 116/81 92
11/09/24 11:05 11/09/24 10:28 11/09/24 08:24 11/09/24 10:28 11/09/24 08:24
I&O
11/08/24 11/09/24 11/10/24
06:59 06:59 06:59
Intake Total 1321.3 / 1348.0 1794.6 / 1794.6
Output Total 3172 / 3172 1350 / 1350
Balance -1850.7 / -1824.0 444.6 / 444.6
Physical Exam
-
General: Well Developed, Comfortable and Morbidly Obese
HEENT: Normocephalic, Atraumatic and Moist Mucous Membranes
Respiratory: Rhonchi and Non Labored Respirations; Negative Accessory Resp Muscle Use
Cardiac: Regular Rhythm and S1/S2; Negative Murmur, Rub or Gallop
GI: Soft, Nontender, Nondistended and Normal Bowel Sounds
Genito-urinary: Clear Urine and Wallace
Musculoskeletal: No Clubbing, No Cyanosis, Edema, Right Lower Extrem and Edema, Left Lower Extrem
Skin: Warm and Dry; Negative Rash
Neuro: Awake, Alert and Nonfocal/Grossly Intact
Psych: Calm
[2024-11-09 13:46] LABS: Glucose - Point of Care 304 mg/dl (70-99)
[2024-11-09] MEDS: HUMULIN N KWIKPEN 10 UNITS SC (13:47)
[2024-11-09] MEDS: NOVOLOG FLEXPEN-MODERATE RESISTANCE 7 UNITS SC ×2 (13:50→18:03)
[2024-11-09 17:26] LABS: Glucose - Point of Care 320 mg/dl (70-99)
--- NOTE | 2024-11-09 19:00 | PTCARENOTE ---
AAO x3. Transfer to chair via Fanny lift for about 5 hours. Incontinent of bowel and bladder. PICC line DL in place flushe d
--- NOTE | 2024-11-09 20:00 | PTCARENOTE ---
Received patient at 1900. Pt. currently awake, alert, and oriented. Currently denies pain/discomfort. Afebrile. Heart rhythm sinus. Blood pressure normotensive. Currently on room air, plan for bipap HS. Lungs sound coarse. Abdomen obese. Diet order
switched to a diabetic diet. Incontinent of bowel and bladder. Skin as documented. Discussed plan of care with patient. Vital signs stable at this time.
[2024-11-09] MEDS: TOPROL XL 25 MG PO (20:02)
[2024-11-09] MEDS: LANTUS 0.35 UNITS SC (22:10)
[2024-11-09 22:15] LABS: Glucose - Point of Care 240 mg/dl (70-99)
[2024-11-10] VITALS (21 sets, daily range): BP systolic 92–120; BP diastolic 56–79; PULSE 88; BMI 39.5
[2024-11-10] MEDS: MERREM 500 MG IV ×4 (01:02→19:21)
[2024-11-10] MEDS: STERILE WATER FOR INJECTION 10 ML IV ×4 (01:02→19:21)
[2024-11-10 03:42] LABS: Hematocrit 29.6 % (39.0-52.0); Hemoglobin 9.7 g/dL (13.0-18.0); Mean Corp Hgb Conc. 32.8 g/dL (33.0-37.0); Mean Corpuscular Hgb 30.8 pg (27.0-31.0); Mean Platelet Volume 11.4 fL (7.4-10.4); Platelet Count 223 10^3/uL (130-400); Red Blood Cell Count 3.15 10^6/uL (4.70-6.10); Red Cell Dist. Width 18.2 % (11.5-14.5); White Blood Cell Count 10.1 10^3/uL (4.8-10.8)
[2024-11-10 04:08] LABS: ALT (SGPT) 68 U/L (0-50); AST (SGOT) 35 U/L (17-59); Albumin 2.8 g/dl (3.5-5.0); Alkaline Phosphatase 102 U/L (38-126); Blood Urea Nitrogen 30 mg/dl (9-20); Carbon Dioxide 34 mmol/L (22-30); Chloride 92 mmol/L (98-107); Estimated Creatinine Clearance 92 ml/min; Glucose 160 mg/dl (70-99); Potassium 3.4 mmol/L (3.5-5.1); Sodium 134 mmol/L (135-145); Total Bilirubin 0.8 mg/dl (0.2-1.3); Total Protein 6.5 g/dl (6.3-8.2); eGFR > 60.00
[2024-11-10] MEDS: ZYVOX 600 MG 300 IV ×2 (05:10→18:03)
[2024-11-10] MEDS: MIRALAX PO (07:04)
[2024-11-10 07:25] LABS: Glucose - Point of Care 182 mg/dl (70-99)
[2024-11-10] MEDS: ADVAIR HFA 230/21 MCG INHALER 2 PUFF INH ×2 (08:05→19:53)
[2024-11-10] MEDS: SODIUM CHLORIDE 3% FOR INHALATION 1 VIAL INH ×2 (08:05→19:57)
[2024-11-10] MEDS: SPIRIVA RESPIMAT 2.5 MCG 2 PUFF INH (08:05)
[2024-11-10] MEDS: NEURONTIN 900 MG PO ×3 (08:33→21:47)
[2024-11-10] MEDS: VISBIOME 2 CAP PO (08:33)
[2024-11-10] MEDS: NSS (PRESERVATIVE FREE) 10 ML IV (08:33)
[2024-11-10] MEDS: THERAGRAN 1 TABLET PO (08:34)
[2024-11-10] MEDS: PROTONIX 40 MG PO (08:34)
[2024-11-10] MEDS: FARXIGA 10 MG PO (08:34)
[2024-11-10] MEDS: CYMBALTA DELAYED RELEASE 60 MG PO (08:34)
[2024-11-10] MEDS: PROSCAR 5 MG PO (08:34)
[2024-11-10] MEDS: XARELTO 20 MG PO (08:34)
[2024-11-10] MEDS: PACERONE 400 MG PO ×2 (08:34→19:20)
[2024-11-10] MEDS: MUCINEX 1200 MG PO ×2 (08:34→19:20)
[2024-11-10] MEDS: ZYLOPRIM 100 MG PO (08:34)
[2024-11-10] MEDS: VITAMIN C 500 MG PO (08:34)
[2024-11-10] MEDS: DESENEX/MITRAZOL/ZEASORB 1 APPLIC TOPICAL ×2 (08:35→19:21)
[2024-11-10] MEDS: LAC HYDRIN, AM LACTIN LOTION 1 APPLIC TOPICAL (08:36)
[2024-11-10] MEDS: LOTRIMIN 1% CREAM 1 APPLIC TOPICAL ×2 (08:54→19:21)
[2024-11-10] MEDS: NOVOLOG FLEXPEN 5 UNITS SC ×3 (08:55→18:02)
[2024-11-10] MEDS: NOVOLOG FLEXPEN-MODERATE RESISTANCE 1 UNITS SC ×3 (08:56→18:03)
[2024-11-10] MEDS: FLOMAX 0.4 MG PO (09:01)
[2024-11-10] MEDS: LANTUS 0.3 UNITS SC (09:06)
--- NOTE | 2024-11-10 09:06 | W.PN.ID1 ---
Date of Service
Date of Service: November 10, 2024
Today's Communication
- Continue linezolid/meropenem (d6 of 7)
Assessment / Plan
# Leukocytosis resolved
# Aspiration pneumonia
# MRSA colonized
# Multiple stated medication and antibiotic allergies
- Repeat bcx x 2 neg to date. Repeat COVID neg.
- 11/05/24 CT c/a/p patchy lung opacity; diffuse gaseous distention of colon, elongation and tortuous colon.
- C. diff neg; norovirus PCR negative
- Continue linezolid/meropenem (d6 of 7)
- Aspiration precaution.
- NGT decompression for colon gaseous distention
- Follow temps/wbc
# Influenza A infection present on admission.
- Vaccinated status
- On Oseltamivir intermittent interruptions due to npo/loss of enteral access
- NGT re-inserted 11/06.
- completed tamiflu
- DC droplet precaution when afebrile.
# Superimposed group A strep pneumonia, present on admission
# s/p Acute hypoxemic respiratory failure, extubated 11/03
-Completed effective abx (d9)
# Suicide ideation
-Psychiatry following
# Afib with RVR
-Cardiology following
# s/p Septic shock
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
DM2
neuropathy
COPD
Afib hx ablation, cardioversion
CAD s/p stent
HFpEF
RA on MTX, leucovorin, folic acid, 5mg prednisone
HTN
dyslipidemia
sleep apnea on CPAP
nephrolithiasis
Chronic back pain
BPH
Sacral decubitus
class III obesity
bilateral TKR
right SONIA
Spine surgery
hernia repair
esophageal stricture dilation
BLE fracture
Chief Complaint
-: Clinical Sepsis, Pneumonia and Other (Flu)
Subjective / Review of Systems
afebrile
bp stable
was up in a chair yesterday
no complaints
Vital Signs / Physical Exam
Vital Signs
Vital Signs
Temp Pulse Resp BP Pulse Ox
97.6 F 79 12 108/66 92
11/10/24 08:00 11/10/24 08:34 11/10/24 08:07 11/10/24 08:34 11/10/24 04:00
Physical Exam
Constitutional: No Acute Distress, Chronically Ill and Obese
Cardiovascular: Regular Rate and S1/S2; Negative Murmur or Rub
Pulmonary: Clear and Symmetric; Negative Wheezes or Rales
Gastrointestinal: Soft, Non Tender, Non Distended and Normal Bowel Sounds
Skin: Warm and Dry; Negative Rash or Jaundice
Objective Data
Lab Data
Lab Results
11/10/24 03:19
11/10/24 03:19
PT 17.8 Sec (11.4-14.6) H 11/04/24 04:40
INR 1.44 11/04/24 04:40
APTT 32.9 Sec (23.4-35.0) 11/04/24 04:40
Estimated Creat Clear 92 ml/min 11/10/24 03:19
Lactic Acid 1.7 mmol/L (0.7-2.0) 10/31/24 04:49
Total Bilirubin 0.8 mg/dl (0.2-1.3) 11/10/24 03:19
AST 35 U/L (17-59) 11/10/24 03:19
ALT 68 U/L (0-50) H 11/10/24 03:19
Alkaline Phosphatase 102 U/L (38-126) 11/10/24 03:19
Most recent labs reviewed.
Micro Results:
11/05/24 14:38 Blood Culture - Preliminary
Blood/Venous No Growth in 4 days- Final report to follow
11/04/24 10:35 Blood Culture - Final
Blood/Venous No Growth - Final Report
11/06/24 13:18 C. difficile GDH Antigen & Toxins - Final
Feces/Stool Negative for toxigenic C.difficile
- Final
Negative for Norovirus GI and GII.
10/31/24 02:39 Blood Culture - Final
Blood/Venous No Growth - Final Report
10/31/24 02:39 Blood Culture - Final
Blood/Venous No Growth - Final Report
10/31/24 08:59 Respiratory Culture - Final
Sputum Streptococcus pyogenes
Gram Stain - Final
10/31/24 02:56 Urine Culture - Final
Urine NO GROWTH
10/31/24 04:00 Legionella Urinary Antigen - Final
Urine Negative for Legionella pneumophila Serogroup 1 antigen.
A negative result does not rule out the possiblity of
Legionella infection due to other serogroups or species of
Legionella. Clinical correlation is recommended.
Streptococcus pneumoniae Antigen (M - Final
Negative for Streptococcus pneumoniae antigen.
A negative result does not exclude infection with
Streptococcus pneumoniae. Clinical correlation is
recommended.
10/30/24 23:23 Influenza Types A & B ([facility]ASTA) - Final
Nasal Swab Influenza A Positive, NAAT
10/30/24 CXR: Endotracheal tube with tip in trachea above the joseluis and nasogastric tube extending into the abdomen with tip off the image.
10/30/24 CXR: Low lung volumes with crowding of central/vascular markings. No focal consolidation to suggest pneumonia, pneumothorax or pleural effusion.
10/31/24 CT C/A/P: No evidence of pulmonary embolism or thoracic aortic dissection. Mild bibasilar subsegmental atelectasis, otherwise clear lungs. Severe coronary arterial calcification. Please correlate with symptoms of and risk factors for
coronary artery disease, with further workup as clinically appropriate. Findings suggestive of constipation. No evidence of intestinal obstruction or bowel inflammatory process. Scattered pancreatic calcifications suggestive of mild chronic
pancreatitis.
11/02/24 CXR: Small opacities projecting over the mid and lower right lung which may represent atelectasis, however pneumonia could appear similar.
11/04/24 CXR: Mild pulmonary vascular congestion. Patchy opacities within the right upper and left lower lung zones
11/05/24 CT C/A/P: Patchy parenchymal opacity within both lungs, increasing from prior CT, and most likely pneumonia. Moderate diffuse gaseous distention of the colon. There is also elongation and tortuosity of the colon. Air is present within
nondilated loops of small bowel. No evidence for free intraperitoneal air.
[2024-11-10] MEDS: DELTASONE 5 MG PO (09:55)
[2024-11-10] MEDS: TOPROL XL PO (09:55)
--- NOTE | 2024-11-10 12:45 | W.PN.PUL3 ---
Today's Communication / Plan
-
ABx per ID for bilateral PNA
s/p course of tamiflu
Continue Advair
Continue prn DuoNebs for assistance with mucus expectoration
Continue spiriva
Continue mucinex
Continue toprol-XL (home med)
Continue PO amio
Aspiration precautions
Weaned off insulin drip on 11/04, but due to hyperglycemia, insulin drip was resumed on 11/05 --> weaned off again on 11/08; continue basal-bolus insulin, and raise lantus to 35 U HS, and 10 U daily on 11/09; now on 30 units during day, 35 units HS;
goal BG 140-180
Continue prednisone (home dose)
Maintain SpO2 >90-94%
CPAP with sleep --> most nights he only wears for few hours even though he is strongly encouraged to wear for the entirety of his sleep
Diet as per GRINDING SUPERVISOR
Psych consulted on 11/04 due to suicidal ideation; 1:1 DC'd on 11/08 as per psych
Patient doing well. Stable for downgrade out of IMU to telemetry. No additional recommendations at this time. Pulmonary service will now sign off. Please reconsult if there are any additional questions/concerns, or if patient's respiratory
status deteriorates. He should continue following up with Dr. Palomares as last visit on 04/17/2024. This will be arranged.
Assessment
-
79-year-old gentleman with known history of JOHNNIE, noncompliant with nightly CPAP, morbid obesity, heart failure with preserved ejection fraction, developed respiratory distress at intermediate facility. Reportedly his roommate also had
respiratory symptoms. Patient tested positive for influenza A. In the emergency room he was hypoxic and hypotensive and was initially tried on BiPAP with suboptimal response. Patient was subsequently intubated and admitted to ICU. Patient
required pressor support for hypotension and was noted to be hypovolemic on initial admission and responded well to IV fluids.
#1. Acute hypoxic respiratory failure in the setting of influenza A infection with superimposed right sided multifocal pneumonia
-Patient's respiratory failure is multifactorial. This is a morbidly obese gentleman who was supposed to be on nightly CPAP for JOHNNIE who in addition has acute decompensated heart failure and recently contracted influenza A which led to further
respiratory decompensation. He failed BiPAP in the emergency room
-Since being here in the ICU, he has had worsening bilateral PNA, and was upgraded back to ICU from IMU level of care on 11/05/2024 --> he has markedly improved and was downgraded to IMU on 11/08/2024
-Strep pyogenes noted in the sputum on 10/31/2024 in addition to influenza A on 10/30/2024
-Patient was extubated on 11/03/2024 --> now on RA saturating 92% - on 11/08 he was on NC at 1-2 L/min saturating 92%
-Antibiotics per infectious disease service, currently on meropenem s/p rocephin + Zyvox; last dose of Tamiflu was 11/08--> ID changed ABx on 11/05 given fever since the day prior with worsening bilateral PNA seen on CT chest on 11/05/2024
-Patient on chronic prednisone therapy for rheumatoid arthritis, was receiving IV steroids with Solu-Medrol 20 daily --> on 11/06 I transitioned back to PO prednisone
#2. Shock, suspect septic shock - shock state resolved since 11/02/2024
-Follow-up on blood cultures (collected on 11/04 as well as 10/31/2024, which both show NGTD)
-Maintain MAP >65
-Procalcitonin elevated (although did have DEONDRE at the time)
-Lactate normalized as of 10/31
-Strep pyogenes noted on sputum culture from 10/31/2024
-Defer antibiotics to ID
-C. difficile antigen and toxins both negative on 11/06
#3. Diabetes mellitus II (uncontrolled � HbA1c: 8.1 on 09/11/2024)
-Weaned off insulin drip on 11/04/2024 onto basal�bolus insulin SQ dosing --> BG was >250 so insulin gtt resumed on 11/05 --> weaned off insulin gtt on 11/08
-Short acting insulin aspart started on 11/07 with 5 units q6hr, and also on Lantus 30 units HS --> of note he does take 60 units HS at home; on 11/09 I raised lantus to 35 units at night and 10 units during the day as blood glucose still remains in
the low 200s; now on 30 units daily and remains oin 35 units HS
-Patient passed GRINDING SUPERVISOR evaluation on 11/08 � cautiously continue pur�ed diet with thin liquids with aspiration precautions
#4. History of asthma, morbid obesity and JOHNNIE on auto-CPAP at home
-Currently patient is not wheezing and is breathing comfortably on room air with SpO2 92-93%
-No hypercapnia seen on blood gases this admission
-Presentation not suggestive of COPD exacerbation
-Was previously on Advair 250mcg at home --> continue Advair here while hospitalized with donna Corley
-Continue with CPAP with sleep; outpatient follow-up with Dr. Palomares (last visit 04/17/2024) --> he only tolerated about 1-2 hours overnight on 11/05-11/06
-Patient ripped off his CPAP mask overnight on 11/04 - 11/05/2024, and refused to put back on
-Refused CPAP overnight (11/06 - 11/07)
-Only tolerated CPAP last night (11/07 - 11/08) for few hours --> his daughter and I both reinforced the need to continue with CPAP for the entirety of his sleep
-Wore CPAP for most of night on 11/08-11/09
-Only wore CPAP for few hours last night (11/09 - 11/10)
#5. History of coronary artery disease status post PCI
-Troponin peaked at 0.035 on 10/30/2024 � no longer need to continue trending at this time
#6. Acute heart failure with reduced ejection fraction (LVEF 25-30% with dilated IVC per TTE from 11/05/2024; previousy his EF was 55-60% + RV poorly visualized on ECHO in 08/2024)
-Presentation earlier this admission did not appear to be related to volume overload --> patient looked hypovolemic on initial presentation as per Dr. Adams
-S/p 2 L bolus in the emergency room, followed by another 500 mL bolus after arrival to ICU
-Monitor strict I/O; trend UOP and BNP
-Lasix 40 mg IVP x 1 given on 11/03/2024 --> CXR from 11/05 shows mild pulmonary vascular congestion
-Transthoracic echo from 11/05/2024 shows acutely reduced LVEF at 25-30% with dilated IVC without respiratory variation � started diuresis on 11/06 with lasix 40mg IV BID --> last dose on AM of 11/08, and cardiology resumed home dose of bumex today
(11/09); monitor I/O + UOP
#7. Paroxysmal atrial fibrillation, rate is normal
-Amiodarone drip off since 11/07 and he was TRX to PO amio on 11/07
- Pt takes toprol-XL at home --> on 11/06 I started low dose metoprolol tartrate as BP can tolerated, as part of his tachycardia may be BB-withdrawal
-Continue Xarelto for anticoagulation via NGT
#8. History of rheumatoid arthritis with chronic prednisone use
-Continue systemic steroids --> resumed home prednisone 5mg daily on 11/07
#9. Suicidal ideation
-Patient said that he wanted to and RN appreciated suicidal ideation --> no longer having this sentiment
-Consulted psychiatry - recs appreciated
-1:1 DC'd today as per psych
DVT prophylaxis: Xarelto
GI Prophylaxis: PPI (home med)
Nutrition: Diet as per GRINDING SUPERVISOR following; improved colon distension on AXR from 11/08
Discussion with daughter with Dr. Linares � 11/05/2024:
He has been at a [facility] ([facility]) since after a lower extremity fracture due to a fall. He has been non-weight bearing up until about 10 days ago. The patient's roommate was coughing and brought to the hospital about 2 weeks ago.
He was supposed to come home this past weekend, but unfortunately has been hospitalized. He has been living with his daughter for last 2 years - she used to live in [place] and moved up here to [place] to have her dad move in with her. He was up to
walking about 100 yards over the last 2 weeks. She would like to continue full medical management.
Patient doing well. Stable for downgrade out of IMU to telemetry. No additional recommendations at this time. Pulmonary service will now sign off. Thank you for allowing us to be involved in the care of this patient. Please reconsult if there
are any additional questions/concerns, or if patient's respiratory status deteriorates.
Total time spent today was 36 minutes for this encounter. Time includes reviewing laboratory test/imaging results, reviewing pertinent medical records, obtaining and reviewing medical history, performing an appropriate exam, ordering medications,
tests and procedures. Time also includes documentation of this encounter, coordinating patient care and communicating with other healthcare professionals. Total time does not include separately billed tests performed on this date of service.
Subjective Data
-
Date of Service:
Date of Service: November 10, 2024
Chief Complaint: Pulmonary Follow Up
Subjective:
Patient seen earlier today (late note entry). Currently on room air breathing comfortably with BP 112/72 and heart rate 80. He is sitting in the chair no acute distress. Feels well overall. Denies chest pain, LOPEZ, nausea, fevers or chills. Wore
CPAP at 10 cm of water last night but only for about 3-1/2 hours.
Review of Systems
General: Other (Negative unless mentioned above)
Objective Data
Data Reviewed
Vital Signs / I&O / Oxygen:
Vital Signs
Temp Pulse Resp BP Pulse Ox
97.6 F 79 12 108/66 92
11/10/24 08:00 11/10/24 08:34 11/10/24 08:07 11/10/24 08:34 11/10/24 04:00
Intake and Output
11/09/24 11/10/24 11/11/24
06:59 06:59 06:59
Intake Total 1794.6 / 1794.6 300 / 300
Output Total 1350 / 1350 400 / 400
Balance 444.6 / 444.6 -100 / -100
SaO2 [A/C] 98
SaO2 92
Nasal Cannula flow liters per 2.5
minute
Physical Exam
General: Respiratory Distress (negative), Comfortable, Chills (negative) and Sweats (negative)
HEENT: Normocephalic, Anicteric and Other (Thick neck)
Cardiovascular: Irregular Rhythm (Irregularly irregular), Rub (negative), Peripheral Edema (negative) and Other (Tachycardic)
Respiratory: Wheeze (negative), Crackles (Bilaterally), Rhonchi (negative), Non-Labored Respirations and Stridor (negative)
GI: Soft, Distended, Non Tender and Normal Bowel Sounds
Neurology: Awake, Alert and Tremors (negative)
Skin: Warm, Dry, Cyanosis (negative) and Jaundice (negative)
Labs/Micro/Reports
Lab Data
11/10/24 03:19
11/10/24 03:19
Microbiology
11/05/24 14:38 Blood/Venous Blood Culture - Preliminary
No Growth in 4 days- Final report to follow
11/04/24 10:35 Blood/Venous Blood Culture - Final
No Growth - Final Report
[2024-11-10 13:05] LABS: Glucose - Point of Care 196 mg/dl (70-99)
--- NOTE | 2024-11-10 13:30 | W.PN.HOSP.TC ---
Today's Communication/Plan
-
Monitor blood pressure
Decrease Toprol dose
Diuretics if blood pressure can tolerate it
Increase Lantus
Continue with antibiotic
Out of bed
Assessment / Plan
Assessment / Plan
#Acute hypoxic respiratory failure. Resolved. Weaned off supplemental oxygen as of 11/08.
#Ventilator dependent respiratory failure, extubated 11/03
#Influenza + strep pyogenes pneumonia. Suspected aspiration pneumonia
�Antibiotics, Tamiflu
-Switch to Meropenem, Linezolid. Day 6 of 7.
� Extubated 11/03
� Pulmonary on board
� Wean O2, O2 goal greater than 2%
� BiPAP at night, daughter is bringing in his own NIV
#Septic shock, shock resolved 11/02
#Persistent fevers
� Continue antibiotics - Meropenem, Linezolid
� Recurrent febrile episodes improved
� F/u Repeat blood cultures remains negative.
� ID consulted
� Can mix Tamiflu suspension with applesauce once tolerating p.o.
- F/u Norovirus, CDiff negative
# Ileus
Moderate diffuse gaseous distention of the colon.
Improving with resolved abdominal pain. Regular BM over the last 24 hours.
NG tube to be removed on 11/08
Evaluated by speech and swallow
Start pur�ed diet with thin liquids
#Paroxysmal atrial fibrillation
-Status post DCCV x 2; nonvalvular; Home regimen includes Xarelto and metoprolol succinate
�NGT back in, resume xarelto
� Continue amiodarone - switch to PO
-Transition to metoprolol succinate decreased dose further down to 12.5 mg twice daily. May need to further down titrate if needed. Remains with soft blood pressure at times.
-Continue with HR goal <120 with critical illness
-Monitor on telemetry here
�Switch to Xopenex
#Acute HFpEF
-Last echocardiogram with preserved LVEF, dilated RV though unable to assess RV systole
-BNP 20,000
-Repeat ECHO - EF 25%
-Transition off IV Lasix to Bumex 1 mg daily. Continue potassium supplementation.
-Continue holding lisinopril monitoring BP trend
-Initiated on Farxiga
-will need LHC in the future if/once he recovers
#Depression
-suicidal ideation
-pscyh consulted - cleared
-Resume preadmission regimen including duloxetine
#Asthma
#JOHNNIE
-Patient with BiPAP dependent respiratory failure
-Home regimen includes Advair for maintenance, DuoNebs as needed
-Restart advair
-Auto-CPAP at home
-f/u Pulm outpt (Dr. Palomares)
#Transaminitis
� I suspect secondary to heart failure, congestive hepatopathy versus drug-induced
- Monitor with diuresis
#CAD s/p PCI
-Home medications include atorvastatin, metoprolol, and ACEi; not on antiplatelet but is on Xarelto
-Unknown when stent was placed or which coronary it was placed in
-Holding beta-lj due to circulatory shock, remains on Xarelto
#Rheumatoid arthritis
-Home medications include methotrexate and prednisone 5 mg daily
-No known complications of CAD or ILD
-Holding methotrexate, continued on steroid
-No signs of flare
#T2DM with neuropathy
Diet has been advanced.
Stop IV insulin transition to subcu regimen.
Basal bolus regimen has been adjusted. Glargine 35 units nightly. Glargine 30 units daily. NovoLog 5 units AC
Adjust poc prn
#BPH
-Home regimen includes tamsulosin and finasteride
-Currently with Wallace catheter in place for strict I's and O's
-Will perform TOV prior to discharge
DVT prophylaxis: Home Xarelto -
CODE STATUS: Currently full code, family to reconsider based on progression over next day or two
Anticipated Discharge: > 48 hours
Subjective/Interval History
-
Date of Service: November 10, 2024
State his appetite is improving
Slept well overnight
Denies lightheaded or dizziness
Objective Data
-
Labs:
Laboratory Results
11/10/24
03:19
WBC 10.1
Hgb 9.7 L
Hct 29.6 L
Plt Count 223
Sodium 134 L
Potassium 3.4 L
Chloride 92 L
Carbon Dioxide 34 H
BUN 30 H
Creatinine 0.9
Glucose 160 H
Calcium 8.0 L
Total Bilirubin 0.8
AST 35
ALT 68 H
Alkaline Phosphatase 102
Vital Signs:
Vital Signs
Temp Pulse Resp BP Pulse Ox
98.1 F 87 12 97/67 92
11/10/24 11:00 11/10/24 09:55 11/10/24 08:07 11/10/24 09:55 11/10/24 04:00
I&O
11/09/24 11/10/24 11/11/24
06:59 06:59 06:59
Intake Total 1794.6 / 1794.6 300 / 300 480 / 480
Output Total 1350 / 1350 400 / 400 600 / 600
Balance 444.6 / 444.6 -100 / -100 -120 / -120
Physical Exam
-
General: Well Developed, Comfortable and Morbidly Obese
HEENT: Normocephalic, Atraumatic and Moist Mucous Membranes
Respiratory: Rhonchi and Non Labored Respirations; Negative Accessory Resp Muscle Use
Cardiac: Regular Rhythm and S1/S2; Negative Murmur, Rub or Gallop
GI: Soft, Nontender, Nondistended and Normal Bowel Sounds
Genito-urinary: Clear Urine and Wallace
Musculoskeletal: No Clubbing, No Cyanosis, Edema, Right Lower Extrem and Edema, Left Lower Extrem
Skin: Warm and Dry; Negative Rash
Neuro: Awake, Alert, No Motor Deficits and Nonfocal/Grossly Intact
Psych: Calm
--- NOTE | 2024-11-10 14:25 | PTCARENOTE ---
AAO x3 on RA. Transfer to chair via Fanny lift
[2024-11-10 17:02] LABS: Glucose - Point of Care 173 mg/dl (70-99)
[2024-11-10] MEDS: TOPROL XL 12.5 MG PO (19:21)
[2024-11-10] MEDS: DUONEB 3 ML INH (19:58)
[2024-11-10] MEDS: LANTUS 0.35 UNITS SC (21:48)
[2024-11-10 21:58] LABS: Glucose - Point of Care 183 mg/dl (70-99)
[2024-11-11] VITALS (12 sets, daily range): BP systolic 99–127; BP diastolic 57–79; PULSE 70–80; BMI 40.3
--- NOTE | 2024-11-11 00:28 | PTCARENOTE ---
Received pt at 1900 resting in bed, AAOx3, pleasant, without complaints. SEGURA but weak, jhonny LEs. Afib on tele. Afebrile. Trace edema. On RA, spo2 94%. Coarse breath sounds throughout. On lateral rotation mattress- percussion Q4h per orders. Round,
obese abd. + bowel sounds. BM today. Bathed with CHG, purewick placed for incontinence. R DL PICC in place. Round circular red patches noticed on chest - aligns with shape and size of tele lead stickers. Switched to sensitive leads. Pt. reports no
itching or pain at sites. Call cote in reach. Went on CPAP HS by RT.
[2024-11-11] MEDS: MERREM 500 MG IV ×4 (01:09→20:12)
[2024-11-11] MEDS: STERILE WATER FOR INJECTION 10 ML IV ×4 (01:10→20:12)
[2024-11-11 05:18] LABS: Hematocrit 30.6 % (39.0-52.0); Mean Corp Hgb Conc. 32.7 g/dL (33.0-37.0); Mean Corpuscular Volume 94.7 fL (80.0-94.0); Mean Platelet Volume 11.8 fL (7.4-10.4); Platelet Count 214 10^3/uL (130-400); Red Blood Cell Count 3.23 10^6/uL (4.70-6.10); Red Cell Dist. Width 17.8 % (11.5-14.5); White Blood Cell Count 11.7 10^3/uL (4.8-10.8)
[2024-11-11 05:29] LABS: Blood Urea Nitrogen 23 mg/dl (9-20); Calcium 8.1 mg/dl (8.4-10.2); Carbon Dioxide 35 mmol/L (22-30); Chloride 93 mmol/L (98-107); Estimated Creatinine Clearance 120 ml/min; Glucose 151 mg/dl (70-99); Potassium 3.3 mmol/L (3.5-5.1); Sodium 133 mmol/L (135-145); eGFR > 60.00
--- NOTE | 2024-11-11 05:46 | PTCARENOTE ---
Pt. rested on cpap for a couple hours then removed mask himself and refused to put it back on.
Potassium 3.3 this AM. PARISA De La Paz notified. Potassium listed as allergy for pt. - clarified with pt that this is not an allergy and he states he has taken potassium supplements and has not had any issues. 40meq PO ordered.
[2024-11-11] MEDS: ZYVOX 600 MG 300 IV ×2 (05:58→17:55)
[2024-11-11] MEDS: KCL ELIXIR 40 MEQ PO (05:58)
[2024-11-11] MEDS: TYLENOL 650 MG PO ×2 (05:58→20:13)
[2024-11-11 07:35] LABS: Glucose - Point of Care 140 mg/dl (70-99)
[2024-11-11] MEDS: ADVAIR HFA 230/21 MCG INHALER 2 PUFF INH ×2 (08:06→20:38)
[2024-11-11] MEDS: SPIRIVA RESPIMAT 2.5 MCG 2 PUFF INH (08:06)
[2024-11-11] MEDS: SODIUM CHLORIDE 3% FOR INHALATION 1 VIAL INH ×2 (08:07→20:39)
[2024-11-11] MEDS: NOVOLOG FLEXPEN 5 UNITS SC (08:29)
[2024-11-11] MEDS: NOVOLOG FLEXPEN-MODERATE RESISTANCE SC ×2 (08:30→12:18)
[2024-11-11] MEDS: CYMBALTA DELAYED RELEASE 60 MG PO (08:30)
[2024-11-11] MEDS: DELTASONE 5 MG PO (08:30)
[2024-11-11] MEDS: DESENEX/MITRAZOL/ZEASORB 1 APPLIC TOPICAL ×2 (08:30→20:12)
[2024-11-11] MEDS: FARXIGA 10 MG PO (08:31)
[2024-11-11] MEDS: FLOMAX 0.4 MG PO (08:31)
[2024-11-11] MEDS: LAC HYDRIN, AM LACTIN LOTION 1 APPLIC TOPICAL (08:31)
[2024-11-11] MEDS: MIRALAX 17 GRAMS PO (08:32)
[2024-11-11] MEDS: MUCINEX 1200 MG PO ×2 (08:32→20:14)
[2024-11-11] MEDS: NEURONTIN 900 MG PO ×3 (08:32→21:34)
[2024-11-11] MEDS: NSS (PRESERVATIVE FREE) IV (08:32)
[2024-11-11] MEDS: PROSCAR 5 MG PO (08:33)
[2024-11-11] MEDS: PROTONIX 40 MG PO (08:33)
[2024-11-11] MEDS: PACERONE 400 MG PO ×2 (08:33→20:12)
[2024-11-11] MEDS: VITAMIN C 500 MG PO (08:34)
[2024-11-11] MEDS: VISBIOME 2 CAP PO (08:34)
[2024-11-11] MEDS: THERAGRAN 1 TABLET PO (08:34)
[2024-11-11] MEDS: XARELTO 20 MG PO (08:34)
[2024-11-11] MEDS: TOPROL XL 12.5 MG PO (08:34)
[2024-11-11] MEDS: ZYLOPRIM 100 MG PO (08:35)
[2024-11-11] MEDS: FLUSH (NSS) 3 FLUSH IV (08:36)
--- NOTE | 2024-11-11 08:37 | PN.DE.MGMTRT ---
Insulin Management
- -
11/11/2024: Diabetes Management Follow up
71 year old male admitted with Acute respiratory failure due to Influenza A and CAP.
PMH: Asthma/COPD, JOHNNIE, Smoking, 1/2 PPD, HTN, Permanent A-fib/A-flutter, CAD s/p PCI, HLD, Chronic back pain, GERD, Dysphagia, BPH, Nephrolithiasis, Gout
Rheumatoid Arthritis, Occasional ETOH use, T2DM with Neuropathy and Morbid Obesity. Prior to admission was taking Glargine 60 units HS and Humalog 12 units AC. Recent A1C 8.1% 09/11/24, Cr 1.0, eGFR >60. Pt was intubated and started on IV steroids,
contributing to Hyperglycemia. Unable to provide hx, information obtained from chart review.
Pt awake, alert, sitting up, able to discuss diabetes care plan. Dtr at bedside.
Patient transitioned off glycemic protocol again on 11/08 after speech eval and starting oral diet.
Glucose 173 to 196, requiring additional 1 unit of corrective insulin with meals
Will increase AC NovoLog to 6 units. Cont Lantus 30 units in AM and 35 units @ HS, Farxiga 10mg daily and moderate correct
Pt was taking glargine 60 units and lispro 12units AC prior to admission, will switch back to his basal schedule @ HS tomorrow.
Discussed with Nurse
Diabetes History
- -
Type of Diabetes: 2 requiring insulin
Pre-Admission Diabetes Regimen
11/11/24
04:37
Creatinine 0.7
Lab Results
Hemoglobin A1c Cancelled 11/05/24 10:24
Insulin Pump Settings
IP Diabetes Regimen
11/10/24 11/10/24 11/10/24
12:53 16:51 21:47
Glucose
POC Glucose 196 H 173 H 183 H
11/11/24 11/11/24
04:37 07:34
Glucose 151 H
POC Glucose 140 H
Meal type: Dinner
Meal type: Lunch
Meal type: Breakfast
Amount consumed: 100%
Amount consumed: 100%
Amount consumed: 100%
Patient Education
[2024-11-11] MEDS: LANTUS 0.3 UNITS SC (08:42)
[2024-11-11] MEDS: LOTRIMIN 1% CREAM TOPICAL (08:58)
[2024-11-11] MEDS: BUMEX 1 MG PO (11:12)
--- NOTE | 2024-11-11 11:21 | W.PN.ID1 ---
Date of Service
Date of Service: November 11, 2024
Today's Communication
Complete course of Zyvox and meropenem today. Thereafter, observe off antibiotics.
Assessment / Plan
# Leukocytosis
- slightly up today
# Aspiration pneumonia
# MRSA colonized
# Multiple stated medication and antibiotic allergies
- Repeat bcx x 2 neg to date. Repeat COVID neg.
- 11/05/24 CT c/a/p patchy lung opacity; diffuse gaseous distention of colon, elongation and tortuous colon.
- C. diff neg; norovirus PCR negative
- Completing linezolid/meropenem (d7 of )
- Aspiration precaution.
- Follow temps/wbc
# Influenza A infection present on admission.
- Vaccinated status
- NGT re-inserted 11/06.
- completed tamiflu
- DC droplet precaution when afebrile.
# Superimposed group A strep pneumonia, present on admission
# s/p Acute hypoxemic respiratory failure, extubated 11/03
-Completed effective abx (d9)
# Suicide ideation
-Psychiatry following
# Afib with RVR
-Cardiology following
# s/p Septic shock
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
DM2
neuropathy
COPD
Afib hx ablation, cardioversion
CAD s/p stent
HFpEF
RA on MTX, leucovorin, folic acid, 5mg prednisone
HTN
dyslipidemia
sleep apnea on CPAP
nephrolithiasis
Chronic back pain
BPH
Sacral decubitus
class III obesity
bilateral TKR
right SONIA
Spine surgery
hernia repair
esophageal stricture dilation
BLE fracture
Chief Complaint
-: Clinical Sepsis, Pneumonia and Other (Flu)
Subjective / Review of Systems
Review of Systems: No Fever and No Chills
Vital Signs / Physical Exam
Vital Signs
Vital Signs
Temp Pulse Resp BP Pulse Ox
97.6 F 74 13 122/67 93
11/11/24 11:15 11/11/24 11:11 11/11/24 11:11 11/11/24 11:11 11/11/24 08:26
Physical Exam
Constitutional: No Acute Distress, Comfortable, Chronically Ill and Obese
Cardiovascular: Regular Rate and S1/S2; Negative S3/S4 or Murmur
Pulmonary: Symmetric, Coarse and Non Labored; Negative Wheezes or Rales
Gastrointestinal: Soft, Non Tender, Non Distended and Normal Bowel Sounds
Skin: Warm and Dry; Negative Rash or Jaundice
Neurological: Awake and Alert
Psychological: Calm
Objective Data
Lab Data
Lab Results
11/11/24 04:37
11/11/24 04:37
PT 17.8 Sec (11.4-14.6) H 11/04/24 04:40
INR 1.44 11/04/24 04:40
APTT 32.9 Sec (23.4-35.0) 11/04/24 04:40
Estimated Creat Clear 120 ml/min 11/11/24 04:37
Lactic Acid 1.7 mmol/L (0.7-2.0) 10/31/24 04:49
Total Bilirubin 0.8 mg/dl (0.2-1.3) 11/10/24 03:19
AST 35 U/L (17-59) 11/10/24 03:19
ALT 68 U/L (0-50) H 11/10/24 03:19
Alkaline Phosphatase 102 U/L (38-126) 11/10/24 03:19
Most recent labs reviewed.
Micro Results:
11/05/24 14:38 Blood Culture - Final
Blood/Venous No Growth - Final Report
11/04/24 10:35 Blood Culture - Final
Blood/Venous No Growth - Final Report
11/06/24 13:18 C. difficile GDH Antigen & Toxins - Final
Feces/Stool Negative for toxigenic C.difficile
- Final
Negative for Norovirus GI and GII.
10/31/24 02:39 Blood Culture - Final
Blood/Venous No Growth - Final Report
10/31/24 02:39 Blood Culture - Final
Blood/Venous No Growth - Final Report
10/31/24 08:59 Respiratory Culture - Final
Sputum Streptococcus pyogenes
Gram Stain - Final
10/31/24 02:56 Urine Culture - Final
Urine NO GROWTH
10/31/24 04:00 Legionella Urinary Antigen - Final
Urine Negative for Legionella pneumophila Serogroup 1 antigen.
A negative result does not rule out the possiblity of
Legionella infection due to other serogroups or species of
Legionella. Clinical correlation is recommended.
Streptococcus pneumoniae Antigen (M - Final
Negative for Streptococcus pneumoniae antigen.
A negative result does not exclude infection with
Streptococcus pneumoniae. Clinical correlation is
recommended.
10/30/24 23:23 Influenza Types A & B (YOKASTA) - Final
Nasal Swab Influenza A Positive, NAAT
Imaging:
10/30/24 CXR: Endotracheal tube with tip in trachea above the joseluis and nasogastric tube extending into the abdomen with tip off the image.
10/30/24 CXR: Low lung volumes with crowding of central/vascular markings. No focal consolidation to suggest pneumonia, pneumothorax or pleural effusion.
10/31/24 CT C/A/P: No evidence of pulmonary embolism or thoracic aortic dissection. Mild bibasilar subsegmental atelectasis, otherwise clear lungs. Severe coronary arterial calcification. Please correlate with symptoms of and risk factors for
coronary artery disease, with further workup as clinically appropriate. Findings suggestive of constipation. No evidence of intestinal obstruction or bowel inflammatory process. Scattered pancreatic calcifications suggestive of mild chronic
pancreatitis.
11/02/24 CXR: Small opacities projecting over the mid and lower right lung which may represent atelectasis, however pneumonia could appear similar.
11/04/24 CXR: Mild pulmonary vascular congestion. Patchy opacities within the right upper and left lower lung zones
11/05/24 CT C/A/P: Patchy parenchymal opacity within both lungs, increasing from prior CT, and most likely pneumonia. Moderate diffuse gaseous distention of the colon. There is also elongation and tortuosity of the colon. Air is present within
nondilated loops of small bowel. No evidence for free intraperitoneal air.
Care Review
Plan reviewed with: Nurse
[2024-11-11 12:03] LABS: Glucose - Point of Care 149 mg/dl (70-99)
[2024-11-11] MEDS: NOVOLOG FLEXPEN 6 UNITS SC ×2 (13:13→17:40)
--- NOTE | 2024-11-11 13:57 | PN.CDI ---
CDI
- -
CDI:
Physician Documentation Request
Admit Date: 10/31/24 03:38
Dear Doctor Scarlett,
Please review the following and provide your response in the progress notes.
Clinical Indicators:
Pt admitted with septic shock 2/2 Influenza A/Bacterial PNA / Acute Hypoxic respiratory Failure
There is potentially conflicting documentation in the record regarding the type of CHF.
Documented per cardiology consult,' Echocardiogram performed yesterday showed EF is now declined to 25 to 30% which is new from comparison of echo in August....[id number] HFrEF:-EF previously preserved, but now reduced as below....'
Progress notes 11/06-11-10,' Acute HFpEF Last echocardiogram with preserved LVEF, dilated RV though unable to assess RV systole-BNP 20,000 Repeat ECHO - EF 25% lasix 40mg IV BID if BP tolerates...'
Due to conflicting documentation further specificity regarding the most likely type of CHF you are evaluating, treating or monitoring.
Acute on Chronic Systolic CHF
Acute Diastolic CHF ( no change in documentation)
Other ( please specify)
Use of terms such as suspected, likely, concern for, or probable (associated with a specific diagnosis that is being evaluated, monitored, or treated as if it exists) are acceptable and can be coded in the inpatient setting, when documented at the
time of discharge.
Thank you,
Cherelle Deras RN
CDI Specialist
[place] [facility]
Please use your independent medical judgment in providing your response.
--- NOTE | 2024-11-11 14:04 | PN.CDI ---
CDI
- -
CDI:
Physician Documentation Request
Admit Date: 10/31/24 03:38
Dear Doctor Scarlett,
Please review the following and provide your response in the progress notes.
Clinical Indicators:
Pt admitted with septic shock 2/2 Influenza A/Bacterial PNA / Acute Hypoxic respiratory Failure
There is potentially conflicting documentation in the record regarding the type of afib .
Documented per cardiology consult 11/06,' permanent atrial fibrillation on Xarelto.... AFIB with RVR: persistent (vs permanent)fast rates in setting of acute illness with sepsis...'
Progress notes 11/04-11/06,' #Paroxysmal atrial fibrillation Status post DCCV x 2; nonvalvular; Home regimen includes Xarelto and metoprolol succinate ..'
Due to conflicting documentation please provide further specificity regarding atrial fibrillation, such as:
Persistent atrial fibrillation - episodes of continuous AF that last more than 7 days and do not self-terminate vs Permanent atrial fibrillation - when a decision has been made to accept the presence of AF and there is no further attempt to restore
or maintain sinus rhythm
Paroxysmal atrial fibrillation -No change in current documentation
Other - please specify
Use of terms such as suspected, likely, concern for, or probable (associated with a specific diagnosis that is being evaluated, monitored, or treated as if it exists) are acceptable and can be coded in the inpatient setting, when documented at the
time of discharge.
Thank you,
Cherelle Deras RN
CDI Specialist
[place] [facility]
Please use your independent medical judgment in providing your response.
--- NOTE | 2024-11-11 15:38 | W.PN.HOSP.TC ---
Today's Communication/Plan
-
Continue antibiotics till 11/12
Aspiration precautions
BiPAP at night
Physical therapy assessment.
Assessment / Plan
Assessment / Plan
#Acute hypoxic respiratory failure. Resolved. Weaned off supplemental oxygen as of 11/08.
#Ventilator dependent respiratory failure, extubated 11/03
#Influenza + strep pyogenes pneumonia. Suspected aspiration pneumonia
�Antibiotics, Tamiflu
-Switch to Meropenem, Linezolid. Day 6 of 7.
� Extubated 11/03
� Pulmonary on board
� Wean O2, O2 goal greater than 2%
� BiPAP at night, daughter is bringing in his own NIV
#Septic shock, shock resolved 11/02
#Persistent fevers
� Continue antibiotics - Meropenem, Linezolid through 11/12
� Recurrent febrile episodes improved
� F/u Repeat blood cultures remains negative.
- F/u Norovirus, CDiff negative
# Ileus
Moderate diffuse gaseous distention of the colon.
Improving with resolved abdominal pain. Regular BM over the last 24 hours.
NG tube to be removed on 11/08
Evaluated by speech and swallow
Start pur�ed diet with thin liquids
#Paroxysmal atrial fibrillation
-Status post DCCV x 2; nonvalvular; Home regimen includes Xarelto and metoprolol succinate
�NGT back in, resume xarelto
� Continue amiodarone - switch to PO
-Transition to metoprolol succinate decreased dose further down to 12.5 mg twice daily. May need to further down titrate if needed. Remains with soft blood pressure at times.
-Continue with HR goal <120 with critical illness
-Monitor on telemetry here
�Switch to Xopenex
#Acute HFpEF
-Last echocardiogram with preserved LVEF, dilated RV though unable to assess RV systole
-BNP 20,000
-Repeat ECHO - EF 25%
-Transition off IV Lasix to Bumex 1 mg daily. Continue potassium supplementation.
-Continue holding lisinopril monitoring BP trend
-Initiated on Farxiga
-will need C in the future if/once he recovers
#Depression
-suicidal ideation
-pscyh consulted - cleared
-Resume preadmission regimen including duloxetine
#Asthma
#JOHNNIE
-Patient with BiPAP dependent respiratory failure
-Home regimen includes Advair for maintenance, DuoNebs as needed
-Restart advair
-Auto-CPAP at home
-f/u Pulm outpt (Dr. Palomares)
#Transaminitis
� I suspect secondary to heart failure, congestive hepatopathy versus drug-induced
- Monitor with diuresis
#CAD s/p PCI
-Home medications include atorvastatin, metoprolol, and ACEi; not on antiplatelet but is on Xarelto
-Unknown when stent was placed or which coronary it was placed in
-Holding beta-lj due to circulatory shock, remains on Xarelto
#Rheumatoid arthritis
-Home medications include methotrexate and prednisone 5 mg daily
-No known complications of CAD or ILD
-Holding methotrexate, continued on steroid
-No signs of flare
#T2DM with neuropathy
Diet has been advanced.
Stop IV insulin transition to subcu regimen.
Basal bolus regimen has been adjusted. Glargine 35 units nightly. Glargine 30 units daily. NovoLog 5 units AC
Adjust poc prn
#BPH
-Home regimen includes tamsulosin and finasteride
-Currently with Wallace catheter in place for strict I's and O's
-Will perform TOV prior to discharge
DVT prophylaxis: Home Xarelto -
CODE STATUS: Currently full code, family to reconsider based on progression over next day or two
Anticipated Discharge: 24 - 48 hours
Subjective/Interval History
-
Date of Service: November 11, 2024
Objective Data
-
Labs:
Laboratory Results
11/11/24
04:37
WBC 11.7 H
Hgb 10.0 L
Hct 30.6 L
Plt Count 214
Sodium 133 L
Potassium 3.3 L
Chloride 93 L
Carbon Dioxide 35 H
BUN 23 H
Creatinine 0.7
Glucose 151 H
Calcium 8.1 L
Vital Signs:
Vital Signs
Temp Pulse Resp BP Pulse Ox
97.6 F 72 11 120/70 93
11/11/24 11:15 11/11/24 12:00 11/11/24 12:00 11/11/24 12:00 11/11/24 11:15
I&O
11/10/24 11/11/24 11/12/24
06:59 06:59 06:59
Intake Total 300 / 300 960 / 960 360 / 360
Output Total 400 / 400 1450 / 1450
Balance -100 / -100 -490 / -490 360 / 360
Physical Exam
-
General: Well Developed, Comfortable and Morbidly Obese
HEENT: Normocephalic, Atraumatic and Moist Mucous Membranes
Respiratory: Rhonchi and Non Labored Respirations; Negative Accessory Resp Muscle Use
Cardiac: Regular Rhythm and S1/S2; Negative Murmur, Rub or Gallop
GI: Soft, Nontender, Nondistended and Normal Bowel Sounds
Genito-urinary: Clear Urine and Wallace
Musculoskeletal: No Clubbing, No Cyanosis, Edema, Right Lower Extrem and Edema, Left Lower Extrem
Skin: Warm and Dry; Negative Rash
Neuro: Awake, Alert, No Motor Deficits and Nonfocal/Grossly Intact
Psych: Calm
--- NOTE | 2024-11-11 15:43 | PTCARENOTE ---
pt incontinent large amount liquid stool/urine (had miralax this morning). also used urinal. partial bath completed. pt otherwise without complaint.
--- NOTE | 2024-11-11 15:57 | CM ---
Chart reviewed and and plan is [facility] acute [facility]hab and if not approved plan to return to [facility], patient will need physiatry evaluation to make determination. Per physician notes patient has completed ABX today.
Plan; Acute rehab v's skilled
.
[2024-11-11 17:40] LABS: Glucose - Point of Care 233 mg/dl (70-99)
[2024-11-11] MEDS: NOVOLOG FLEXPEN-MODERATE RESISTANCE 3 UNITS SC (17:40)
--- NOTE | 2024-11-11 20:00 | PTCARENOTE ---
Patient received lying in bed, awake, alert and oriented watching TV. He is without apparent signs of distress or discomfort. However, he c/o discomfort 'all over' rating pain 8/10. He declines anything more than Tylenol at this time which was
given. See assessment charted. Afib with BBB on CM. Patient incontinent of urine. Complete bed bath with CHG cloths. Skin care given. Coccyx wound and perineal wound documented. Purewick catheter donned. Bed in low and locked position. Call cote in
reach.
[2024-11-11] MEDS: LOTRIMIN 1% CREAM 1 APPLIC TOPICAL (20:14)
[2024-11-11] MEDS: TOPROL XL PO (20:14)
[2024-11-11] MEDS: DUONEB 3 ML INH (20:39)
[2024-11-11 21:24] LABS: Glucose - Point of Care 199 mg/dl (70-99)
[2024-11-11] MEDS: LANTUS 0.35 UNITS SC (21:34)
[2024-11-11] MEDS: ROXICODONE 5 MG PO (21:35)
--- NOTE | 2024-11-11 22:08 | PTCARENOTE ---
Addendum entered by Natacha Block RN 11/11/24 22:53:
Belongings include patient's CPAP and electric rosa m.
Original Note:
Report called verbally to 4W MORGAN Butt. Questions answered. Patient belongings gathered.
--- NOTE | 2024-11-11 22:54 | PTCARENOTE ---
Patient transferred to , room 428 via bed accompanied by RN and PCT. Belongings with patient.
--- NOTE | 2024-11-11 23:20 | PTCARENOTE ---
Pt transferred from ICU. Pt oriented to unit, call cote within reach, bed in lowest position. Will continue with current plan.
[2024-11-12] VITALS: PULSE 88
[2024-11-12 03:39] VITALS: BP 130/77
[2024-11-12 06:00] VITALS: BMI 40.2
[2024-11-12 06:49] LABS: % Basophils 0.2 % (0-2); % Eosinophils 0.1 % (0-6); % Immature Granulocytes 0.5 % (0-0.5); % Lymphocytes 17.6 % (20.5-51.1); % Neutrophils 75.6 % (42.2-75.2); Absolute Immature Granulocytes 0.1 10^3/uL (0-0.05); Absolute Lymphocytes 1.6 10^3/uL (1.2-3.4); Absolute Monocytes 0.6 10^3/uL (0.1-0.6); Hematocrit 30.9 % (39.0-52.0); Hemoglobin 10.3 g/dL (13.0-18.0); Mean Corp Hgb Conc. 33.3 g/dL (33.0-37.0); Mean Corpuscular Hgb 31.1 pg (27.0-31.0); Mean Corpuscular Volume 93.4 fL (80.0-94.0); Mean Platelet Volume 11.1 fL (7.4-10.4); Nucleated Red Blood Cells % 0 % (-); Platelet Count 219 10^3/uL (130-400); Red Blood Cell Count 3.31 10^6/uL (4.70-6.10); Red Cell Dist. Width 17.9 % (11.5-14.5); White Blood Cell Count 9.2 10^3/uL (4.8-10.8)
[2024-11-12 07:15] LABS: Blood Urea Nitrogen 21 mg/dl (9-20); Calcium 8.3 mg/dl (8.4-10.2); Carbon Dioxide 36 mmol/L (22-30); Chloride 93 mmol/L (98-107); Estimated Creatinine Clearance 104 ml/min; Glucose 113 mg/dl (70-99); Potassium 3.4 mmol/L (3.5-5.1); Sodium 131 mmol/L (135-145); eGFR > 60.00
[2024-11-12 07:30] VITALS: BP 106/61
[2024-11-12 08:12] LABS: Glucose - Point of Care 74 mg/dl (70-99)
[2024-11-12] MEDS: SODIUM CHLORIDE 3% FOR INHALATION 1 VIAL INH ×2 (08:13→19:22)
[2024-11-12] MEDS: ADVAIR HFA 230/21 MCG INHALER 2 PUFF INH ×2 (08:13→19:22)
[2024-11-12] MEDS: SPIRIVA RESPIMAT 2.5 MCG 2 PUFF INH (08:14)
--- NOTE | 2024-11-12 08:20 | PN.DE.MGMTRT ---
Insulin Management
- -
:
11/12/2024: Diabetes Management Follow up
71 year old male admitted with Acute respiratory failure due to Influenza A and CAP.
PMH: Asthma/COPD, JOHNNIE, Smoking, 1/2 PPD, HTN, Permanent A-fib/A-flutter, CAD s/p PCI, HLD, Chronic back pain, GERD, Dysphagia, BPH, Nephrolithiasis, Gout
Rheumatoid Arthritis, Occasional ETOH use, T2DM with Neuropathy and Morbid Obesity. Prior to admission was taking Glargine 60 units HS and Humalog 12 units AC. Recent A1C 8.1% 09/11/24, Cr 1.0, eGFR >60.
Pt awake, alert, sitting up, able to discuss diabetes care plan.
Patient transitioned off glycemic protocol again on 11/08 after speech eval and starting oral diet.
Glucose 140 to 233, requiring additional corrective insulin with meals
Fasting glucose this AM 74, will stop HS lantus and continue AM lantus at 35 units with AC NovoLog 6 units, with Farxiga 10mg daily and low corrective. Recommend AM lantus only at discharge.
Discussed with Nurse
Diabetes History
- -
Type of Diabetes: 2 requiring insulin
Pre-Admission Diabetes Regimen
11/12/24
06:37
Creatinine 0.8
Lab Results
Hemoglobin A1c Cancelled 11/05/24 10:24
Insulin Pump Settings
IP Diabetes Regimen
11/11/24 11/11/24 11/11/24
11:52 17:28 21:12
Glucose
POC Glucose 149 H 233 H 199 H
11/12/24 11/12/24
06:37 08:09
Glucose 113 H
POC Glucose 74
Meal type: Lunch
Meal type: Breakfast
Amount consumed: 100%
Amount consumed: 100%
Patient Education
[2024-11-12] MEDS: NEURONTIN 900 MG PO ×3 (09:19→21:29)
[2024-11-12] MEDS: MUCINEX 1200 MG PO ×2 (09:19→21:29)
[2024-11-12] MEDS: MIRALAX 17 GRAMS PO (09:19)
[2024-11-12] MEDS: CYMBALTA DELAYED RELEASE 60 MG PO (09:19)
[2024-11-12] MEDS: TOPROL XL 12.5 MG PO ×2 (09:20→21:45)
[2024-11-12] MEDS: FARXIGA 10 MG PO (09:20)
[2024-11-12] MEDS: ZYLOPRIM 100 MG PO (09:20)
[2024-11-12] MEDS: XARELTO 20 MG PO (09:21)
[2024-11-12] MEDS: VITAMIN C 500 MG PO (09:21)
[2024-11-12] MEDS: PACERONE 400 MG PO ×2 (09:21→21:29)
[2024-11-12] MEDS: VISBIOME 2 CAP PO (09:21)
[2024-11-12] MEDS: PROTONIX 40 MG PO (09:21)
[2024-11-12] MEDS: THERAGRAN 1 TABLET PO (09:22)
[2024-11-12] MEDS: DELTASONE 5 MG PO (09:22)
[2024-11-12] MEDS: PROSCAR 5 MG PO (09:22)
[2024-11-12] MEDS: FLOMAX 0.4 MG PO (09:22)
[2024-11-12] MEDS: NOVOLOG FLEXPEN 6 UNITS SC ×3 (09:28→16:58)
[2024-11-12] MEDS: LAC HYDRIN, AM LACTIN LOTION 1 APPLIC TOPICAL (09:29)
[2024-11-12] MEDS: DESENEX/MITRAZOL/ZEASORB 1 APPLIC TOPICAL ×2 (09:29→21:29)
[2024-11-12] MEDS: NOVOLOG FLEXPEN-LOW RESISTANCE SC (09:30)
[2024-11-12] MEDS: LOTRIMIN 1% CREAM 1 APPLIC TOPICAL ×2 (09:30→21:30)
[2024-11-12] MEDS: LANTUS 0.35 UNITS SC (09:30)
[2024-11-12] MEDS: NOVOLOG FLEXPEN-MODERATE RESISTANCE SC (09:31)
[2024-11-12] MEDS: LANTUS SC (09:31)
[2024-11-12 10:56] VITALS: BP 128/81
[2024-11-12 11:24] LABS: Glucose - Point of Care 159 mg/dl (70-99)
[2024-11-12] MEDS: BUMEX 1 MG PO (11:54)
[2024-11-12] MEDS: NOVOLOG FLEXPEN-LOW RESISTANCE 1 UNITS SC ×2 (11:55→16:58)
[2024-11-12 15:00] VITALS: BP 120/69
--- NOTE | 2024-11-12 15:17 | PTCARENOTE ---
I met with Allan to assist him with the glucometer. He stated he normally wears the Dexcom G7 at home but he was told that could not be used while in the hospital so he did not put on a new sensor. I assisted him in setting up the [employer] Next Ez
meter and he was able to return demonstrate a fingerstick blood glucose. We reviewed glucose monitoring and appropriate target levels fasting and 2 hours post meal. He was able to verbalize low blood sugar treatment. Allan explained he did not
want any prescriptions sent to his pharmacy for blood glucose test strips or lancets as he has many at home that he wants to use. He also stated he will re-start his Dexcom G7 once he is discharged from the hospital.
--- NOTE | 2024-11-12 16:06 | W.PN.ID1 ---
Date of Service
Date of Service: November 12, 2024
Today's Communication
Observe off antibiotics.
Assessment / Plan
# Leukocytosis
- improved
# Aspiration pneumonia
# MRSA colonized
# Multiple stated medication and antibiotic allergies
- Repeat bcx x 2 neg to date. Repeat COVID neg.
- 11/05/24 CT c/a/p patchy lung opacity; diffuse gaseous distention of colon, elongation and tortuous colon.
- C. diff neg; norovirus PCR negative
- Completed 7 day course linezolid/meropenem on 11/11/24
- Observe off abx.
- Aspiration precaution.
- Follow temps/wbc
# Influenza A infection present on admission.
- Vaccinated status
- NGT re-inserted 11/06.
- completed tamiflu
# Superimposed group A strep pneumonia, present on admission
# s/p Acute hypoxemic respiratory failure, extubated 11/03
-Completed effective abx (d9)
# Suicide ideation
-Psychiatry following
# Afib with RVR
-Cardiology following
# s/p Septic shock
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
DM2
neuropathy
COPD
Afib hx ablation, cardioversion
CAD s/p stent
HFpEF
RA on MTX, leucovorin, folic acid, 5mg prednisone
HTN
dyslipidemia
sleep apnea on CPAP
nephrolithiasis
Chronic back pain
BPH
Sacral decubitus
class III obesity
bilateral TKR
right SONIA
Spine surgery
hernia repair
esophageal stricture dilation
BLE fracture
Chief Complaint
-: Clinical Sepsis, Pneumonia and Other (Flu)
Subjective / Review of Systems
Review of Systems: No Fever and No Chills
Vital Signs / Physical Exam
Vital Signs
Vital Signs
Temp Pulse Resp BP Pulse Ox
98.5 F 81 16 120/69 98
11/12/24 15:00 11/12/24 15:00 11/12/24 15:00 11/12/24 15:00 11/12/24 15:00
Physical Exam
Constitutional: No Acute Distress, Comfortable, Chronically Ill and Obese
Eyes: Sclera Anicteric
Cardiovascular: Regular Rate and S1/S2; Negative S3/S4 or Murmur
Pulmonary: Symmetric, Coarse and Non Labored; Negative Wheezes or Rales
Gastrointestinal: Soft, Non Tender, Non Distended and Normal Bowel Sounds
Extremities: Negative Edema
Skin: Warm and Dry; Negative Rash or Jaundice
Wound: Other (Abrasions on bilateral shins)
Neurological: Awake and Alert
Psychological: Calm
Objective Data
Lab Data
Lab Results
11/12/24 06:37
11/12/24 06:37
PT 17.8 Sec (11.4-14.6) H 11/04/24 04:40
INR 1.44 11/04/24 04:40
APTT 32.9 Sec (23.4-35.0) 11/04/24 04:40
Estimated Creat Clear 104 ml/min 11/12/24 06:37
Lactic Acid 1.7 mmol/L (0.7-2.0) 10/31/24 04:49
Total Bilirubin 0.8 mg/dl (0.2-1.3) 11/10/24 03:19
AST 35 U/L (17-59) 11/10/24 03:19
ALT 68 U/L (0-50) H 11/10/24 03:19
Alkaline Phosphatase 102 U/L (38-126) 11/10/24 03:19
Most recent labs reviewed.
Micro Results:
11/05/24 14:38 Blood Culture - Final
Blood/Venous No Growth - Final Report
11/04/24 10:35 Blood Culture - Final
Blood/Venous No Growth - Final Report
11/06/24 13:18 C. difficile GDH Antigen & Toxins - Final
Feces/Stool Negative for toxigenic C.difficile
- Final
Negative for Norovirus GI and GII.
10/31/24 02:39 Blood Culture - Final
Blood/Venous No Growth - Final Report
10/31/24 02:39 Blood Culture - Final
Blood/Venous No Growth - Final Report
10/31/24 08:59 Respiratory Culture - Final
Sputum Streptococcus pyogenes
Gram Stain - Final
10/31/24 02:56 Urine Culture - Final
Urine NO GROWTH
10/31/24 04:00 Legionella Urinary Antigen - Final
Urine Negative for Legionella pneumophila Serogroup 1 antigen.
A negative result does not rule out the possiblity of
Legionella infection due to other serogroups or species of
Legionella. Clinical correlation is recommended.
Streptococcus pneumoniae Antigen (M - Final
Negative for Streptococcus pneumoniae antigen.
A negative result does not exclude infection with
Streptococcus pneumoniae. Clinical correlation is
recommended.
10/30/24 23:23 Influenza Types A & B (YOKASTA) - Final
Nasal Swab Influenza A Positive, NAAT
Imaging:
10/30/24 CXR: Endotracheal tube with tip in trachea above the joseluis and nasogastric tube extending into the abdomen with tip off the image.
10/30/24 CXR: Low lung volumes with crowding of central/vascular markings. No focal consolidation to suggest pneumonia, pneumothorax or pleural effusion.
10/31/24 CT C/A/P: No evidence of pulmonary embolism or thoracic aortic dissection. Mild bibasilar subsegmental atelectasis, otherwise clear lungs. Severe coronary arterial calcification. Please correlate with symptoms of and risk factors for
coronary artery disease, with further workup as clinically appropriate. Findings suggestive of constipation. No evidence of intestinal obstruction or bowel inflammatory process. Scattered pancreatic calcifications suggestive of mild chronic
pancreatitis.
11/02/24 CXR: Small opacities projecting over the mid and lower right lung which may represent atelectasis, however pneumonia could appear similar.
11/04/24 CXR: Mild pulmonary vascular congestion. Patchy opacities within the right upper and left lower lung zones
11/05/24 CT C/A/P: Patchy parenchymal opacity within both lungs, increasing from prior CT, and most likely pneumonia. Moderate diffuse gaseous distention of the colon. There is also elongation and tortuosity of the colon. Air is present within
nondilated loops of small bowel. No evidence for free intraperitoneal air.
--- NOTE | 2024-11-12 16:41 | W.PN.HOSP.TC ---
Today's Communication/Plan
-
Completed course of antibiotics
Continue physical therapy/physiatry assessment.
Monitor blood glucose and adjust insulin dose
Assessment / Plan
Assessment / Plan
#Acute hypoxic respiratory failure. Resolved. Weaned off supplemental oxygen as of 11/08.
#Ventilator dependent respiratory failure, extubated 11/03
#Influenza + strep pyogenes pneumonia. Suspected aspiration pneumonia
�Antibiotics, Tamiflu
-Switch to Meropenem, Linezolid. Day 6 of 7.
� Extubated 11/03
� Pulmonary on board
� Wean O2, O2 goal greater than 2%
� BiPAP at night, daughter is bringing in his own NIV
#Septic shock, shock resolved 11/02
#Persistent fevers
� Continue antibiotics - Meropenem, Linezolid through 11/12
� Recurrent febrile episodes improved
� F/u Repeat blood cultures remains negative.
- F/u Norovirus, CDiff negative
# Ileus
Moderate diffuse gaseous distention of the colon.
Improving with resolved abdominal pain. Regular BM over the last 24 hours.
NG tube to be removed on 11/08
Evaluated by speech and swallow
Start pur�ed diet with thin liquids
#Paroxysmal atrial fibrillation
-Status post DCCV x 2; nonvalvular; Home regimen includes Xarelto and metoprolol succinate
�NGT back in, resume xarelto
� Continue amiodarone - switch to PO
-Transition to metoprolol succinate decreased dose further down to 12.5 mg twice daily. May need to further down titrate if needed. Remains with soft blood pressure at times.
-Continue with HR goal <120 with critical illness
-Monitor on telemetry here
�Switch to Xopenex
#Acute HFpEF
-Last echocardiogram with preserved LVEF, dilated RV though unable to assess RV systole
-BNP 20,000
-Repeat ECHO - EF 25%
-Transition off IV Lasix to Bumex 1 mg daily. Continue potassium supplementation.
-Continue holding lisinopril monitoring BP trend
-Initiated on Farxiga
-will need LHC in the future if/once he recovers
#Depression
-suicidal ideation
-pscyh consulted - cleared
-Resume preadmission regimen including duloxetine
#Asthma
#JOHNNIE
-Patient with BiPAP dependent respiratory failure
-Home regimen includes Advair for maintenance, DuoNebs as needed
-Restart advair
-Auto-CPAP at home
-f/u Pulm outpt (Dr. Palomares)
#Transaminitis
� I suspect secondary to heart failure, congestive hepatopathy versus drug-induced
- Monitor with diuresis
#CAD s/p PCI
-Home medications include atorvastatin, metoprolol, and ACEi; not on antiplatelet but is on Xarelto
-Unknown when stent was placed or which coronary it was placed in
-Holding beta-lj due to circulatory shock, remains on Xarelto
#Rheumatoid arthritis
-Home medications include methotrexate and prednisone 5 mg daily
-No known complications of CAD or ILD
-Holding methotrexate, continued on steroid
-No signs of flare
#T2DM with neuropathy
Diet has been advanced.
Stop IV insulin transition to subcu regimen.
Basal bolus regimen has been adjusted. Glargine 35 units nightly. Glargine 30 units daily. NovoLog 5 units AC
Adjust poc prn
#BPH
-Home regimen includes tamsulosin and finasteride
-Currently with Wallace catheter in place for strict I's and O's
-Will perform TOV prior to discharge
DVT prophylaxis: Home Xarelto -
CODE STATUS: Currently full code, family to reconsider based on progression over next day or two
Anticipated Discharge: 24 - 48 hours
Subjective/Interval History
-
Date of Service: November 12, 2024
Objective Data
-
Labs:
Laboratory Results
11/12/24
06:37
WBC 9.2
Hgb 10.3 L
Hct 30.9 L
Plt Count 219
Sodium 131 L
Potassium 3.4 L
Chloride 93 L
Carbon Dioxide 36 H
BUN 21 H
Creatinine 0.8
Glucose 113 H
Calcium 8.3 L
Vital Signs:
Vital Signs
Temp Pulse Resp BP Pulse Ox
98.5 F 81 16 120/69 98
11/12/24 15:00 11/12/24 15:00 11/12/24 15:00 11/12/24 15:00 11/12/24 15:00
I&O
11/11/24 11/12/24 11/13/24
06:59 06:59 06:59
Intake Total 960 / 960 1120 / 1120
Output Total 1450 / 1450 300 / 300
Balance -490 / -490 820 / 820
Physical Exam
-
General: Well Developed, Comfortable and Morbidly Obese
HEENT: Normocephalic, Atraumatic and Moist Mucous Membranes
Respiratory: Rhonchi and Non Labored Respirations; Negative Accessory Resp Muscle Use
Cardiac: Regular Rhythm and S1/S2; Negative Murmur, Rub or Gallop
GI: Soft, Nontender, Nondistended and Normal Bowel Sounds
Genito-urinary: Clear Urine and Wallace
Musculoskeletal: No Clubbing, No Cyanosis, Edema, Right Lower Extrem and Edema, Left Lower Extrem
Skin: Warm and Dry; Negative Rash
Neuro: Awake, Alert, No Motor Deficits and Nonfocal/Grossly Intact
Psych: Calm
[2024-11-12 16:54] LABS: Glucose - Point of Care 161 mg/dl (70-99)
[2024-11-12 19:15] VITALS: BP 109/59
[2024-11-12] MEDS: NSS (PRESERVATIVE FREE) IV (19:40)
[2024-11-12 21:25] LABS: Glucose - Point of Care 181 mg/dl (70-99)
[2024-11-13] VITALS (9 sets, daily range): BP systolic 107–135; BP diastolic 61–89; PULSE 75–78; O2SAT 92; BMI 39.9
--- NOTE | 2024-11-13 04:37 | DOWNTIME ---
There was a [employer] Downtime on 11/13/2024 from 0100 to 11/14/2023 at 0420 . Downtime documentation of patient's care, including medication administrations, has been reconciled in the electronic record per guidelines. Refer to the
patient's paper chart under the miscellaneous tab to see printed paper medication records and downtime forms.
[2024-11-13] MEDS: LOTRIMIN 1% CREAM 1 APPLIC TOPICAL ×2 (07:46→21:05)
[2024-11-13] MEDS: MIRALAX 17 GRAMS PO (07:46)
[2024-11-13] MEDS: DESENEX/MITRAZOL/ZEASORB 1 APPLIC TOPICAL ×2 (07:46→21:05)
[2024-11-13] MEDS: LAC HYDRIN, AM LACTIN LOTION 1 APPLIC TOPICAL (07:47)
[2024-11-13] MEDS: MUCINEX 1200 MG PO ×2 (07:47→21:04)
[2024-11-13] MEDS: NEURONTIN 900 MG PO ×3 (07:47→22:34)
[2024-11-13] MEDS: TOPROL XL 12.5 MG PO ×2 (07:47→21:03)
[2024-11-13] MEDS: CYMBALTA DELAYED RELEASE 60 MG PO (07:47)
[2024-11-13] MEDS: VISBIOME 2 CAP PO (07:47)
[2024-11-13] MEDS: FARXIGA 10 MG PO (07:47)
[2024-11-13] MEDS: FLOMAX 0.4 MG PO (07:48)
[2024-11-13] MEDS: PROSCAR 5 MG PO (07:48)
[2024-11-13] MEDS: THERAGRAN 1 TABLET PO (07:48)
[2024-11-13] MEDS: PACERONE 400 MG PO ×2 (07:48→21:04)
[2024-11-13] MEDS: XARELTO 20 MG PO (07:48)
[2024-11-13] MEDS: VITAMIN C 500 MG PO (07:48)
[2024-11-13] MEDS: PROTONIX 40 MG PO (07:48)
[2024-11-13] MEDS: ZYLOPRIM 100 MG PO (07:48)
[2024-11-13] MEDS: DELTASONE 5 MG PO (07:53)
[2024-11-13] MEDS: LANTUS 0.35 UNITS SC (07:59)
[2024-11-13] MEDS: NOVOLOG FLEXPEN 6 UNITS SC ×3 (08:00→17:40)
[2024-11-13] MEDS: NOVOLOG FLEXPEN-LOW RESISTANCE SC (08:00)
[2024-11-13] MEDS: ADVAIR HFA 230/21 MCG INHALER 2 PUFF INH ×2 (08:35→19:37)
[2024-11-13] MEDS: SPIRIVA RESPIMAT 2.5 MCG 2 PUFF INH (08:35)
--- NOTE | 2024-11-13 09:04 | PN.DE.MGMTRT ---
Insulin Management
- -
11/13/2024: Diabetes Management Follow up
71 year old male admitted with Acute respiratory failure due to Influenza A and CAP.
PMH: Asthma/COPD, JOHNNIE, Smoking, 1/2 PPD, HTN, Permanent A-fib/A-flutter, CAD s/p PCI, HLD, Chronic back pain, GERD, Dysphagia, BPH, Nephrolithiasis, Gout
Rheumatoid Arthritis, Occasional ETOH use, T2DM with Neuropathy and Morbid Obesity. Prior to admission was taking Glargine 60 units HS and Humalog 12 units AC. Recent A1C 8.1% 09/11/24, Cr 1.0, eGFR >60.
Pt awake, alert, sitting up, able to discuss diabetes care plan. States he sees dylan Pacheco, on regular basis.
Glucose 74 to 181, requiring additional corrective insulin with meals
Fasting glucose this AM 127, HS lantus stopped 11/12, continue AM lantus at 35 units with AC NovoLog 6 units, with Farxiga 10mg daily and low corrective. Recommend AM lantus only at discharge.
Discussed changed insulin doses with patient, he is agreeable.
Will follow
Discussed with Nurse
Diabetes History
- -
Type of Diabetes: 2 requiring insulin
Pre-Admission Diabetes Regimen
Lab Results
Hemoglobin A1c Cancelled 11/05/24 10:24
Insulin Pump Settings
IP Diabetes Regimen
11/12/24 11/12/24 11/12/24
11:23 16:52 21:23
POC Glucose 159 H 161 H 181 H
Meal type: Lunch
Amount consumed: 100%
Patient Education
[2024-11-13 12:01] LABS: Glucose - Point of Care 238 mg/dl (70-99)
--- NOTE | 2024-11-13 12:47 | CM ---
CM reviewed chart, reviewed with [facility], unable to accept. CM spoke with patients daughter, Tiny CASTELLANOS. Per Tiny, would like a call from [facility] to discuss why patient is not accepted, agreeable to additional referrals to additional acute rehab facilities
([facility] and [facility] Daughter understands if no other acute rehabs able to accept will need SNF, reports patient does have a good relationship/rapport at [facility]. Update to Hospitalist. CM will continue to follow for all discharge
planning needs.
Plan; additional acute rehab referrals placed vs return to SNF
[2024-11-13] MEDS: BUMEX 1 MG PO (13:18)
[2024-11-13] MEDS: NOVOLOG FLEXPEN-LOW RESISTANCE 2 UNITS SC ×2 (13:21→17:40)
--- NOTE | 2024-11-13 13:52 | CON.MD ---
Consultation - Medical
-
Referring Provider:�Dr. Remberto Pantoja
Chief Complaint:�Debility
�
History of Present Illness:�79-year-old male with PMH (as below) with recent acute hypoxic respiratory failure presented to [facility] on 10/[facility]/2024 with hypoxic respiratory failure status post intubation prior to arrival at the emergency
department. Was found at the [facility] slumped over in the chair with a low pulse ox and minimally responsive, needed placed on BiPAP with persistent hypoxia. Required pressors. CT of the head was negative CT PE protocol negative for pulmonary
embolism and did not show any focal consolidation. Septic shock resolved 11/02. Found to have influenza A and completed course of Tamiflu. Also found to have strep pyogenes pneumonia which was thought to be from aspiration. Weaned off ventilator
11/03. Completed a course of antibiotics. Hospital course also notable for ileus which has been improving, NG tube removed 11/08. Had suicidal ideation and seen by psychiatry. Also with A-fib with RVR managed by cardiology.
�
Past Medical History:�Permanent A-fib/A-flutter, HTN, CAD status post cardiac stent, heart failure, DM2, HLD, Chronic back pain, Neuropathy, Asthma / COPD, Sleep apnea/CPAP setting 9 - O2 3 liters, GERD, Dysphagia, BPH, Nephrolithiasis, Gout,
Rheumatoid Arthritis, Morbid Obesity, stage III sacral decubitus ulcer
Procedure History:�Back surgery x 2, ankle surgery, 2 knee replacements, cardiac cath and cardiac stents, cardioversions x 2 for permanent A-fib, right hip replacement
Family History:�None pertinent
�
Social History:�
Functional Level Premorbidly:�Use rollator at home, went from 1 place in the house to the dining area for a while then to the family for a while and then to bed. Not very active at home at baseline
Functional Level Currently:�Currently on a soft and bite-size and thin liquid diet. One-to-one supervision for eating. Dependent for toileting, mod assist upper extremity self-care, dependent lower extremity self-care, max assist bed mobility
�
Tobacco:�Denies�
Alcohol:�Denies�
Drug use:�Denies�
�
Lives with:�Daughter
24-hour assistance available:�Yes
Number of floors:�1
# steps to enter:�3
Potential First floor set up:�Yes
Driving:�No, not for approximately 1-1/2 years, his daughter said he cannot drive anymore
Occupation:�Retired
�
�
Allergies:�
Allergy/AdvReac Type Severity Reaction Status Date / Time
anakinra Allergy Unknown Unknown Verified 10/30/24 23:45
levofloxacin [From Levaquin] Allergy Unknown Unknown Verified 10/30/24 23:45
alprazolam [From Xanax] Allergy hieves, SOB Verified 10/30/24 23:45
amoxicillin [From Augmentin] Allergy Unknown Verified 10/30/24 23:45
celecoxib [From Celebrex] Allergy hives, SOB Verified 10/30/24 23:45
cisapride [From Propulsid] Allergy Unknown Verified 10/30/24 23:45
clarithromycin [From Biaxin] Allergy SOB, hives Verified 10/30/24 23:45
clavulanic acid Allergy Unknown Verified 10/30/24 23:45
[From Augmentin]
clindamycin HCl Allergy Hives, SOB Verified 10/30/24 23:45
[From Cleocin]
codeine Allergy Unknown Verified 10/30/24 23:45
famotidine [From Pepcid] Allergy hives SOB Verified 10/30/24 23:45
hydrocodone [From Vicodin] Allergy Unknown Verified 10/30/24 23:45
hydroxychloroquine sulfate Allergy hives, SOB Verified 10/30/24 23:45
[From Plaquenil]
Iodinated Contrast Media Allergy Hives Verified 10/30/24 23:45
Penicillins Allergy Hives Verified 10/30/24 23:45
Sulfa (Sulfonamide Allergy Unknown Verified 10/30/24 23:45
Antibiotics)
�
Review of Systems:�
Constitutional: (x) abNormal _fatigue
Eye: (x) Normal _
Ear/Nose/Throat: (x) Normal _
Respiratory: (x) abNormal _recent pneumonia and flu, breathing better.
Cardiovascular: (x) Normal _
Gastrointestinal: (x) Normal _
Genitourinary: (x) Normal _
Musculoskeletal: (x) abNormal _bilateral knee pain since fall in July on ice
Integumentary: (x) Normal _
Neurologic: (x) abNormal _diabetic neuropathy
Psychiatric: (x) Normal _
Endocrine: (x) Normal _
Hematologic/Lymphatic: (x) Normal _
Allergic/Immunologic: (x) Normal _
�
Medications:�
Active Current Visit Medication List
Category Date Time Status
Acetaminophen [Tylenol/Feverall] Med 11/04/24 10:05 Active
650 mg RECTAL Q6HPRN PRN
Acetaminophen [Tylenol] Med 11/08/24 14:52 Active
650 mg PO Q4HPRN PRN
Allopurinol [Zyloprim] Med 11/09/24 08:00 Active
100 mg PO DAILY
Amiodarone [Pacerone] Med 11/07/24 11:00 Active
400 mg PO BID
Ammonium Lactate 12% [Lac Hydrin, Am Lactin Lotion] Med 10/31/24 08:00 Active
1 applic TOPICAL DAILY
Ascorbic Acid [Vitamin C] Med 11/09/24 08:00 Active
500 mg PO DAILY
Bisacodyl [Dulcolax] Med 11/08/24 16:09 Active
10 mg RECTAL DAILYPRN PRN
Bumetanide [Bumex] Med 11/11/24 11:00 Active
1 mg PO DAILY@1100
Clotrimazole [Lotrimin 1% Cream] Med 11/08/24 20:00 Active
See Dose Instructions TOPICAL BID
Dapagliflozin [Farxiga] Med 11/09/24 08:00 Active
10 mg PO DAILY
Dextrose 50%-Water [Dextrose 50% Syringe] Med 11/08/24 17:00 Active
12.5 grams IV [id number] PRN
Duloxetine Delayed Release [Cymbalta Delayed Release] Med 11/09/24 08:00 Active
60 mg PO DAILY
Finasteride [Proscar] Med 11/09/24 08:00 Active
5 mg PO DAILY
Flush (0.9% Sodium Chloride) [Flush (Nss)] Med 10/31/24 04:00 Active
See Dose Instructions IV PER PROTOCOL
Fluticasone/Salmeterol 230/21 [Advair Hfa 230/21 Mcg Med 11/04/24 20:00 Active
Inhaler]
2 puff INH R BID
Gabapentin [Neurontin] Med 11/08/24 16:00 Active
900 mg PO TID
Glucagon [GlucaGen] Med 11/08/24 17:00 Active
1 mg IM PRN PRN
Guaifenesin [Mucinex] Med 11/08/24 20:00 Active
1,200 mg PO BID
Insulin Aspart Corrective Low [Novolog Flexpen-Low Med 11/12/24 09:00 Active
Resistance]
See Protocol SC AC
Insulin Aspart Pen [Novolog Flexpen] Med 11/11/24 09:36 Active
6 units SC AC
Insulin Glargine Lantus [Lantus] 35 units Med 11/12/24 09:00 Active
Subcutaneous Insulin Syringe [Syringe-Insulin] 0 unit
SC DAILY
Lactobac/Bifidobac [Visbiome] Med 11/09/24 08:00 Active
2 cap PO DAILY
Metoprolol Xl [Toprol Xl] Med 11/10/24 20:00 Active
12.5 mg PO BID
Miconazole Nitrate [Desenex/Mitrazol/Zeasorb] Med 11/08/24 20:00 Active
See Dose Instructions TOPICAL BID
Multivitamin [Theragran] Med 11/09/24 08:00 Active
1 tablet PO DAILY
Ondansetron Injectable [Zofran] Med 10/31/24 03:45 Active
4 mg IV Q6HPRN PRN
Oxycodone [Roxicodone] Med 11/08/24 12:50 Active
5 mg PO Q4HPRN PRN
Pantoprazole [Protonix] Med 11/09/24 08:00 Active
40 mg PO DAILY
Polyethylene Glycol Powder [Miralax] Med 11/09/24 08:00 Active
17 grams PO DAILY
Prednisone [Deltasone] Med 11/09/24 08:00 Active
5 mg PO DAILY
Rivaroxaban [Xarelto] Med 11/09/24 08:00 Active
20 mg PO DAILY
Tamsulosin [Flomax] Med 11/09/24 08:00 Active
0.4 mg PO DAILY
Tiotropium [place] 2.5 Mcg [Spiriva Respimat 2.5 Mcg] Med 11/10/24 08:00 Active
2 puff INH R DAILY
�
Vitals:�
Temp Pulse Resp BP Pulse Ox
98.1 F 78 19 121/65 96
11/13/24 11:00 11/13/24 11:00 11/13/24 11:00 11/13/24 11:00 11/13/24 11:00
Height 6 ft
Actual Weight 133.2 kg
Body Mass Index (BMI) 39.9
�
Physical Exam:�
General Appearance/Observation: Well-developed, well-nourished male in no apparent distress.�
Pain/Comfort Assessment: Denies�
Mood/Affect: Appropriate�
�
Integumentary/Operative Site:�Multiple scabs over bilateral shins, no open skin currently
�
Eyes: Conjunctiva/Lids: normal���� Pupils: pupils equal round and reactive to light and Accommodation�
Ears/Nose/Throat: oral mucosa moist,� throat clear.������������ Lips/Teeth/Gums: normal�
Neck: No muscle spasm or tenderness�
Cardiovascular: Heart: regular, no murmur�
Pulses: dorsalis pedis 1+ bilaterally�
Respiratory: Respiratory Effort/Chest Expansion: normal������� Auscultation: Clear to auscultation bilaterally�
Gastrointestinal: abdomen not tender, no distension, normal abdominal bowel sounds
Genitourinary: No Wallace�
Rectal Exam: Deferred�
Extremities:�Edema: Minimal bilateral lower extremities�cyanosis: None�Trophic�changes: Mild both shins
�
Neurology Exam:
Orientation: Alert, Oriented to self, Time, Place�
Memory: Impaired, grandson at bedside giving some historical information
Repetition: Intact
Comprehension: Intact
Two step command: Intact
Cranial Nerves:
�� CNII:�Pupillary light reflex: Intact����Visual Field: Intact
�� CN III, IV, : Extraocular muscles: Intact�
�� CN V:�Facial Sensation�at�Forehead: Intact,�Maxilla: Intact,�Mandible: Intact
�� CN VII:�Facial movement: Symmetric
�� CN VIII:�Hearing: Normal
�� CN IX/X:�Speech & swallow: Normal,�Position of Uvula: Midline
�� CN XI:�Shoulder shrug: Symmetric
�� CN XII:�Tongue protrusion: Midline
Sensory:
�� Light touch: Absent bilateral feet, impaired up to bilateral shins. Minimal decrease in hands
�
Reflexes:
�� Biceps: 2+ bilaterally
�� Brachioradialis: 2+ bilaterally
�� Triceps: 2+ bilaterally
�� Patellar: 0 bilaterally
�� Achilles: 0 bilaterally
�� Babinski: Down going bilaterally
�� Clonus: None
�� Cara: Negative bilaterally�
Cerebellar: Dysmetria/Ataxia: None�
Musculoskeletal:Motor: (Manual muscle scale 0-5)�
Muscle SA EF WE EE FF FA HF KE DF EHL PF
Right� 4 5 5 4 5 4 2 4 3 3 3
Left 4 5 5 4 5 4 2 4 3 3 3
�
Tone: Normal in all extremities�
Range of Motion: Passively within functional limits in all extremities�
�
Lab Results
Laboratory Data
11/12/24 06:37
11/12/24 06:37
PT 17.8 Sec (11.4-14.6) H 11/04/24 04:40
INR 1.44 11/04/24 04:40
APTT 32.9 Sec (23.4-35.0) 11/04/24 04:40
Total Bilirubin 0.8 mg/dl (0.2-1.3) 11/10/24 03:19
AST 35 U/L (17-59) 11/10/24 03:19
ALT 68 U/L (0-50) H 11/10/24 03:19
Alkaline Phosphatase 102 U/L (38-126) 11/10/24 03:19
Total Protein 6.5 g/dl (6.3-8.2) 11/10/24 03:19
Albumin 2.8 g/dl (3.5-5.0) L 11/10/24 03:19
�
Diagnostic Results:�as per HPI�
�
Assessment
79-year-old right-handed male PMH (Permanent A-fib/A-flutter, HTN, CAD status post cardiac stent, heart failure, DM2, HLD, Chronic back pain, Neuropathy, Asthma / COPD, Sleep apnea/CPAP setting 9 - O2 3 liters, GERD, Dysphagia, BPH, Nephrolithiasis,
Gout, Rheumatoid Arthritis, Morbid Obesity, stage III sacral decubitus ulcer) with 10/31/2024 with hypoxic respiratory failure and septic shock from influenza A and strep pyogenes pneumonia with hospital stay complicated by ileus, A-fib with RVR, and
suicidal ideation--resulting in ADL and ambulatory dysfunction.
�
Plan�
PM&R�PT/OT to increase independence with ADLs, improve balance, coordination, endurance, strength, mobility, community reintegration, decreased burden of care on others and family education.�
�
Influenza infection with strep pyogenes aspiration pneumonia with acute hypoxic respiratory failure: Strep thought to be secondary to aspiration. Completed a course of Tamiflu and antibiotics.
-Home CPAP brought in.
-Inhalers as needed
�
HTN: Blood pressure meds held with recent shock, reintroduce as necessary, monitor closely�
HLD: Statin�
Coronary artery disease�: Aspirin, statin, beta-lj�held with shock
Atrial fibrillation with RVR:�Xarelto anticoagulation and amiodarone rate control.�������������������������������������������
Recent acute CHF: EF 25%, beta lj, monitor fluid status. Cira Garcia. Lisinopril held. Will need left heart cath in future
DM II with neuropathy: Accu-Cheks, insulin sliding scale, glargine 35 units at night and 30 units during the day, NovoLog 6 units with meals.�
JOHNNIE: CPAP use.�
Rheumatoid arthritis: Methotrexate held and prednisone 5 mg daily
Anemia: Likely multifactorial.� 10.3 from 10. Continue to monitor.
Depression: Duloxetine seen by psychiatry for suicidal ideation with no further concerns.�
Skin: monitor for pressure sores/rashes/lesions.� Has multiple abrasions that are scabbed over bilateral shins. Discussed careful monitoring of skin with severe neuropathy
Pain: acetaminophen or oxycodone 5 mg as needed.� Gabapentin 900 mg 3 times daily
Bowel: Had an ileus, Colace and Senna, PRN bisacodyl.�
Urinary retention: on finasteride and tamsulosin. Time void, PVRs, PRN straight cath.�
GI Prophylaxis: Pantoprazole�
DVT Prophylaxis: Mechanical and Xarelto
Pulmonary: Incentive spirometry�
Morbid obesity: Continue to education counselor patient about diet adjustments to control obesity. Body habitus and increased force to move body and extremities causes further difficulty with functional tasks.�
Safety: Continue to reinforce assistance with all transfers.�
Code Status:� Full code
Dispo�(date/plan/equipment needs): Home with family care.� Social history reviewed.�
Functional and Medical Goals:�Modified Independent with ADL�s, ambulation, transfers�
Discharge Destination:�half-way facility. If doing well after a few weeks and is easily able to tolerate may benefit from transfer to an acute inpatient rehabilitation program prior to getting home.
�
A total of 60 minutes were spent with the patient preparing for the evaluation, obtaining history, performing examination and evaluation, counseling, data review, case management, care coordination, will call order clerk, and EMR documentation.
�
Thank you for allowing me to care for your patient. Please contact me with any questions or concerns.
--- NOTE | 2024-11-13 14:35 | W.PN.HOSP.TC ---
Today's Communication/Plan
-
Off antibiotics
Continue current cardiovascular regimen.
Physical therapy assessment.
Disposition efforts acute versus subacute rehab.
Assessment / Plan
Assessment / Plan
#Acute hypoxic respiratory failure. Resolved. Weaned off supplemental oxygen as of 11/08.
#Ventilator dependent respiratory failure, extubated 11/03
#Influenza + strep pyogenes pneumonia. Suspected aspiration pneumonia
�Antibiotics, Tamiflu
-Switch to Meropenem, Linezolid. Day 6 of 7.
� Extubated 11/03
� Pulmonary on board
� Wean O2, O2 goal greater than 2%
� BiPAP at night, daughter is bringing in his own NIV
#Septic shock, shock resolved 11/02
#Persistent fevers
� Continue antibiotics - Meropenem, Linezolid through 11/12
� Recurrent febrile episodes improved
� F/u Repeat blood cultures remains negative.
- F/u Norovirus, CDiff negative
# Ileus
Moderate diffuse gaseous distention of the colon.
Improving with resolved abdominal pain. Regular BM over the last 24 hours.
NG tube to be removed on 11/08
Evaluated by speech and swallow
Start pur�ed diet with thin liquids
# Permanent atrial fibrillation
-Status post DCCV x 2; nonvalvular; Home regimen includes Xarelto and metoprolol succinate
�NGT back in, resume xarelto
� Continue amiodarone - switch to PO
-Transition to metoprolol succinate decreased dose further down to 12.5 mg twice daily. May need to further down titrate if needed. Remains with soft blood pressure at times.
-Continue with HR goal <120 with critical illness
-Monitor on telemetry here
�Switch to Xopenex
#Acute HFpEF
-Last echocardiogram with preserved LVEF, dilated RV though unable to assess RV systole
-BNP 20,000
-Repeat ECHO - EF 25%
-Transition off IV Lasix to Bumex 1 mg daily. Continue potassium supplementation.
-Continue holding lisinopril monitoring BP trend
-Initiated on Farxiga
-will need C in the future if/once he recovers
#Depression
-suicidal ideation
-pscyh consulted - cleared
-Resume preadmission regimen including duloxetine
#Asthma
#JOHNNIE
-Patient with BiPAP dependent respiratory failure
-Home regimen includes Advair for maintenance, DuoNebs as needed
-Restart advair
-Auto-CPAP at home
-f/u Pulm outpt (Dr. Palomares)
#Transaminitis
� I suspect secondary to heart failure, congestive hepatopathy versus drug-induced
- Monitor with diuresis
#CAD s/p PCI
-Home medications include atorvastatin, metoprolol, and ACEi; not on antiplatelet but is on Xarelto
-Unknown when stent was placed or which coronary it was placed in
-Holding beta-lj due to circulatory shock, remains on Xarelto
#Rheumatoid arthritis
-Home medications include methotrexate and prednisone 5 mg daily
-No known complications of CAD or ILD
-Holding methotrexate, continued on steroid
-No signs of flare
#T2DM with neuropathy
Diet has been advanced.
Stop IV insulin transition to subcu regimen.
Basal bolus regimen has been adjusted. Glargine 35 units nightly. Glargine 30 units daily. NovoLog 5 units AC
Adjust poc prn
#BPH
-Home regimen includes tamsulosin and finasteride
-Currently with Wallace catheter in place for strict I's and O's
-Will perform TOV prior to discharge
DVT prophylaxis: Home Xarelto -
CODE STATUS: Currently full code, family to reconsider based on progression over next day or two
Anticipated Discharge: Within 24 hours
Subjective/Interval History
-
Date of Service: November 13, 2024
Objective Data
-
Vital Signs:
Vital Signs
Temp Pulse Resp BP Pulse Ox
98.1 F 78 19 121/65 96
11/13/24 11:00 11/13/24 11:00 11/13/24 11:00 11/13/24 11:00 11/13/24 11:00
I&O
11/12/24 11/13/24 11/14/24
06:59 06:59 06:59
Intake Total 1120 / 1120 660 / 660 200 / 200
Output Total 300 / 300 1000 / 1000 1025 / 1025
Balance 820 / 820 -340 / -340 -825 / -825
Physical Exam
-
General: Well Developed, Comfortable and Morbidly Obese
HEENT: Normocephalic, Atraumatic and Moist Mucous Membranes
Respiratory: Rhonchi and Non Labored Respirations; Negative Accessory Resp Muscle Use
Cardiac: Regular Rhythm and S1/S2; Negative Murmur, Rub or Gallop
GI: Soft, Nontender, Nondistended and Normal Bowel Sounds
Genito-urinary: Clear Urine and Wallace
Musculoskeletal: No Clubbing, No Cyanosis, Edema, Right Lower Extrem and Edema, Left Lower Extrem
Skin: Warm and Dry; Negative Rash
Neuro: Awake, Alert, No Motor Deficits and Nonfocal/Grossly Intact
Psych: Calm
[2024-11-13 16:51] LABS: Glucose - Point of Care 210 mg/dl (70-99)
--- NOTE | 2024-11-13 18:01 | W.PN.ID1 ---
Date of Service
Date of Service: November 13, 2024
Today's Communication
Doing well off antibiotics.
Little more to offer from Infectious Diseases standpoint.
Will see again at your request.
Assessment / Plan
# Leukocytosis
- improved
# Aspiration pneumonia
# MRSA colonized
# Multiple stated medication and antibiotic allergies
- Repeat bcx x 2 neg to date. Repeat COVID neg.
- 11/05/24 CT c/a/p patchy lung opacity; diffuse gaseous distention of colon, elongation and tortuous colon.
- C. diff neg; norovirus PCR negative
- Completed 7 day course linezolid/meropenem on 11/11/24
- Continue off antibiotics.
- Aspiration precaution.
# Influenza A infection present on admission.
- Vaccinated status
- NGT re-inserted 11/06.
- completed tamiflu
# Superimposed group A strep pneumonia, present on admission
# s/p Acute hypoxemic respiratory failure, extubated 11/03
-Completed effective abx (d9)
# Suicide ideation
-Psychiatry following
# Afib with RVR
-Cardiology following
# s/p Septic shock
# Conditions D[employer]ING [employer]
DM2
neuropathy
COPD
Afib hx ablation, cardioversion
CAD s/p stent
HFpEF
RA on MTX, leucovorin, folic acid, 5mg prednisone
HTN
dyslipidemia
sleep apnea on CPAP
nephrolithiasis
Chronic back pain
BPH
Sacral decubitus
class III obesity
bilateral TKR
right SONIA
Spine surgery
hernia repair
esophageal stricture dilation
BLE fracture
Chief Complaint
-: Clinical Sepsis, Pneumonia and Other (Flu)
Subjective / Review of Systems
Review of Systems: No Fever
Vital Signs / Physical Exam
Vital Signs
Vital Signs
Temp Pulse Resp BP Pulse Ox
98.2 F 84 20 134/86 100
11/13/24 15:00 11/13/24 15:00 11/13/24 15:00 11/13/24 15:00 11/13/24 15:00
Physical Exam
Constitutional: No Acute Distress, Comfortable, Chronically Ill and Obese
Cardiovascular: S1/S2; Negative S3/S4 or Murmur
Pulmonary: Non Labored
Gastrointestinal: Soft and Non Distended
Skin: Warm and Dry; Negative Rash or Jaundice
Neurological: Awake and Alert
Psychological: Calm
Objective Data
Lab Data
Lab Results
11/12/24 06:37
11/12/24 06:37
PT 17.8 Sec (11.4-14.6) H 11/04/24 04:40
INR 1.44 11/04/24 04:40
APTT 32.9 Sec (23.4-35.0) 11/04/24 04:40
Estimated Creat Clear 104 ml/min 11/12/24 06:37
Lactic Acid 1.7 mmol/L (0.7-2.0) 10/31/24 04:49
Total Bilirubin 0.8 mg/dl (0.2-1.3) 11/10/24 03:19
AST 35 U/L (17-59) 11/10/24 03:19
ALT 68 U/L (0-50) H 11/10/24 03:19
Alkaline Phosphatase 102 U/L (38-126) 11/10/24 03:19
Most recent labs reviewed.
Micro Results:
11/05/24 14:38 Blood Culture - Final
Blood/Venous No Growth - Final Report
11/04/24 10:35 Blood Culture - Final
Blood/Venous No Growth - Final Report
11/06/24 13:18 C. difficile GDH Antigen & Toxins - Final
Feces/Stool Negative for toxigenic C.difficile
- Final
Negative for Norovirus GI and GII.
10/31/24 02:39 Blood Culture - Final
Blood/Venous No Growth - Final Report
10/31/24 02:39 Blood Culture - Final
Blood/Venous No Growth - Final Report
10/31/24 08:59 Respiratory Culture - Final
Sputum Streptococcus pyogenes
Gram Stain - Final
10/31/24 02:56 Urine Culture - Final
Urine NO GROWTH
10/31/24 04:00 Legionella Urinary Antigen - Final
Urine Negative for Legionella pneumophila Serogroup 1 antigen.
A negative result does not rule out the possiblity of
Legionella infection due to other serogroups or species of
Legionella. Clinical correlation is recommended.
Streptococcus pneumoniae Antigen (M - Final
Negative for Streptococcus pneumoniae antigen.
A negative result does not exclude infection with
Streptococcus pneumoniae. Clinical correlation is
recommended.
10/30/24 23:23 Influenza Types A & B (YOKASTA) - Final
Nasal Swab Influenza A Positive, NAAT
Imaging:
10/30/24 CXR: Endotracheal tube with tip in trachea above the joseluis and nasogastric tube extending into the abdomen with tip off the image.
10/30/24 CXR: Low lung volumes with crowding of central/vascular markings. No focal consolidation to suggest pneumonia, pneumothorax or pleural effusion.
10/31/24 CT C/A/P: No evidence of pulmonary embolism or thoracic aortic dissection. Mild bibasilar subsegmental atelectasis, otherwise clear lungs. Severe coronary arterial calcification. Please correlate with symptoms of and risk factors for
coronary artery disease, with further workup as clinically appropriate. Findings suggestive of constipation. No evidence of intestinal obstruction or bowel inflammatory process. Scattered pancreatic calcifications suggestive of mild chronic
pancreatitis.
11/02/24 CXR: Small opacities projecting over the mid and lower right lung which may represent atelectasis, however pneumonia could appear similar.
11/04/24 CXR: Mild pulmonary vascular congestion. Patchy opacities within the right upper and left lower lung zones
11/05/24 CT C/A/P: Patchy parenchymal opacity within both lungs, increasing from prior CT, and most likely pneumonia. Moderate diffuse gaseous distention of the colon. There is also elongation and tortuosity of the colon. Air is present within
nondilated loops of small bowel. No evidence for free intraperitoneal air.
[2024-11-13] MEDS: TYLENOL 650 MG PO (21:03)
[2024-11-13] MEDS: ROXICODONE 5 MG PO (21:03)
--- NOTE | 2024-11-13 21:24 | PTCARENOTE ---
Pt placed back on tele per protocol d/t amiodarone dose of 400mg BID. Pt remains afib with a bundle branch block, rate controlled in the 70s-80s.
[2024-11-13 21:30] LABS: Glucose - Point of Care 205 mg/dl (70-99)
[2024-11-14] VITALS (8 sets, daily range): BP systolic 112–144; BP diastolic 67–91; PULSE 77; BMI 39.8
[2024-11-14 07:19] LABS: Glucose - Point of Care 122 mg/dl (70-99)
--- NOTE | 2024-11-14 07:58 | PN.DE.MGMTRT ---
Insulin Management
- -
11/14/2024: Diabetes Management Follow up
71 year old male admitted with Acute respiratory failure due to Influenza A and CAP.
PMH: Asthma/COPD, JOHNNIE, Smoking, 1/2 PPD, HTN, Permanent A-fib/A-flutter, CAD s/p PCI, HLD, Chronic back pain, GERD, Dysphagia, BPH, Nephrolithiasis, Gout
Rheumatoid Arthritis, Occasional ETOH use, T2DM with Neuropathy and Morbid Obesity. Prior to admission was taking Glargine 60 units HS and Humalog 12 units AC. Recent A1C 8.1% 09/11/24, Cr 1.0, eGFR >60.
Pt awake, alert, sitting up, able to discuss diabetes care plan. States he sees dylan Pacheco, on regular basis.
Glucose 127 to 238, requiring additional corrective insulin with meals
Fasting glucose this AM 127, HS lantus stopped 11/12, continue AM lantus at 35 units increase AC NovoLog 8 units, with Farxiga 10mg daily and low corrective. Recommend AM lantus only at discharge.
Discussed changed insulin doses with patient, he is agreeable.
Will follow
Discussed with Nurse
Diabetes History
- -
Type of Diabetes: 2 requiring insulin
Pre-Admission Diabetes Regimen
Lab Results
Hemoglobin A1c Cancelled 11/05/24 10:24
Insulin Pump Settings
IP Diabetes Regimen
11/13/24 11/13/24 11/13/24
11:59 16:47 21:29
POC Glucose 238 H 210 H 205 H
11/14/24
07:14
POC Glucose 122 H
Meal type: Breakfast
Amount consumed: 100%
Patient Education
[2024-11-14] MEDS: ADVAIR HFA 230/21 MCG INHALER 2 PUFF INH ×2 (08:05→19:47)
[2024-11-14] MEDS: SPIRIVA RESPIMAT 2.5 MCG 2 PUFF INH (08:06)
[2024-11-14] MEDS: NOVOLOG FLEXPEN-LOW RESISTANCE SC (08:57)
[2024-11-14] MEDS: LANTUS 0.35 UNITS SC (08:57)
[2024-11-14] MEDS: PACERONE 400 MG PO ×2 (08:58→20:24)
[2024-11-14] MEDS: THERAGRAN 1 TABLET PO (08:58)
[2024-11-14] MEDS: PROTONIX 40 MG PO (08:58)
[2024-11-14] MEDS: FARXIGA 10 MG PO (08:58)
[2024-11-14] MEDS: NEURONTIN 900 MG PO ×3 (08:58→22:25)
[2024-11-14] MEDS: ZYLOPRIM 100 MG PO (08:58)
[2024-11-14] MEDS: VITAMIN C 500 MG PO (08:58)
[2024-11-14] MEDS: MUCINEX 1200 MG PO ×2 (08:58→20:25)
[2024-11-14] MEDS: PROSCAR 5 MG PO (08:58)
[2024-11-14] MEDS: FLOMAX 0.4 MG PO (08:58)
[2024-11-14] MEDS: TOPROL XL 12.5 MG PO ×2 (08:59→20:24)
[2024-11-14] MEDS: LAC HYDRIN, AM LACTIN LOTION 1 APPLIC TOPICAL (08:59)
[2024-11-14] MEDS: XARELTO 20 MG PO (08:59)
[2024-11-14] MEDS: VISBIOME 2 CAP PO (08:59)
[2024-11-14] MEDS: CYMBALTA DELAYED RELEASE 60 MG PO (08:59)
[2024-11-14] MEDS: MIRALAX 17 GRAMS PO (08:59)
[2024-11-14] MEDS: DELTASONE 5 MG PO (08:59)
[2024-11-14] MEDS: DESENEX/MITRAZOL/ZEASORB 1 APPLIC TOPICAL ×2 (09:00→20:25)
[2024-11-14] MEDS: LOTRIMIN 1% CREAM 1 APPLIC TOPICAL ×2 (09:00→20:25)
[2024-11-14] MEDS: NOVOLOG FLEXPEN 8 UNITS SC ×3 (09:01→17:54)
[2024-11-14] MEDS: NOVOLOG FLEXPEN SC (09:55)
--- NOTE | 2024-11-14 10:40 | WOUNDNOTE ---
[facility] RN Note: Patient seen for HAPI report for stage 2 coccyx pressure injury. Patient admitted with septic shock, respiratory failure, extubated 11/03/24. Patient has a small stage 2 sacral/coccyx pressure injury, pink, scant serous drainage. Sacral
shaped silicone border foam applied. Patient is on an air mattress (Progress) and has Comfort air glide repositioning sheet. Skin on heels blanchable red and intact. Groin mild yeasty rash. Patient incontinent of urine. Appetite good. History of a
fib, obesity, CHF, asthma, CAD, RA, DM. Patient turned to R semi side lying position with help from MORGAN Baxter. Patient assists with turning. Heels off bed with pillow and bariatric air chair cushion. Updated Dr. Pantoja who approved local wound
care. Care plan to be updated.
--- NOTE | 2024-11-14 10:41 | WOUNDNOTE ---
L 2ND TOE (DORSAL)
[2024-11-14 11:34] LABS: Glucose - Point of Care 188 mg/dl (70-99)
--- NOTE | 2024-11-14 11:34 | CM ---
CM reviewed chart, per Hakeem- unable to access, recommending SNF. Referrals to [facility] and [facility]- [facility] unable to accept, clinicals faxed and voicemail left for [facility] for review, if unable to accept patient will
need SNF. left for patients daughter, Tiny, with update. CM will continue to follow for all discharge planning needs.
Plan; awaiting determination from [facility] vs SNF
--- NOTE | 2024-11-14 11:41 | WOUNDNOTE ---
Jesus Chapa re: recommend air mattress at SNF/rehab. Patient has a stage 2 coccyx pressure injury.
[2024-11-14] MEDS: BUMEX 1 MG PO (12:07)
[2024-11-14] MEDS: NOVOLOG FLEXPEN-LOW RESISTANCE 1 UNITS SC ×2 (12:34→17:53)
--- NOTE | 2024-11-14 15:01 | W.PN.HOSP.TC ---
Today's Communication/Plan
-
Continue supportive care
Monitor blood glucose adjust insulin regimen
Ongoing disposition efforts
Assessment / Plan
Assessment / Plan
#Acute hypoxic respiratory failure. Resolved. Weaned off supplemental oxygen as of 11/08.
#Ventilator dependent respiratory failure, extubated 11/03
#Influenza + strep pyogenes pneumonia. Suspected aspiration pneumonia
�Antibiotics, Tamiflu
-Switch to Meropenem, Linezolid. Day 6 of 7.
� Extubated 11/03
� Pulmonary on board
� Wean O2, O2 goal greater than 2%
� BiPAP at night, daughter is bringing in his own NIV
#Septic shock, shock resolved 11/02
#Persistent fevers
� Continue antibiotics - Meropenem, Linezolid through 11/12
� Recurrent febrile episodes improved
� F/u Repeat blood cultures remains negative.
- F/u Norovirus, CDiff negative
# Ileus
Moderate diffuse gaseous distention of the colon.
Improving with resolved abdominal pain. Regular BM over the last 24 hours.
NG tube to be removed on 11/08
Evaluated by speech and swallow
Start pur�ed diet with thin liquids
# Permanent atrial fibrillation
-Status post DCCV x 2; nonvalvular; Home regimen includes Xarelto and metoprolol succinate
�NGT back in, resume xarelto
� Continue amiodarone - switch to PO
-Transition to metoprolol succinate decreased dose further down to 12.5 mg twice daily. May need to further down titrate if needed. Remains with soft blood pressure at times.
-Continue with HR goal <120 with critical illness
-Monitor on telemetry here
�Switch to Xopenex
#Acute HFpEF
-Last echocardiogram with preserved LVEF, dilated RV though unable to assess RV systole
-BNP 20,000
-Repeat ECHO - EF 25%
-Transition off IV Lasix to Bumex 1 mg daily. Continue potassium supplementation.
-Continue holding lisinopril monitoring BP trend
-Initiated on Farxiga
-will need LHC in the future if/once he recovers
#Depression
-suicidal ideation
-pscyh consulted - cleared
-Resume preadmission regimen including duloxetine
#Asthma
#JOHNNIE
-Patient with BiPAP dependent respiratory failure
-Home regimen includes Advair for maintenance, DuoNebs as needed
-Restart advair
-Auto-CPAP at home
-f/u Pulm outpt (Dr. Palomares)
#Transaminitis
� I suspect secondary to heart failure, congestive hepatopathy versus drug-induced
- Monitor with diuresis
#CAD s/p PCI
-Home medications include atorvastatin, metoprolol, and ACEi; not on antiplatelet but is on Xarelto
-Unknown when stent was placed or which coronary it was placed in
-Holding beta-lj due to circulatory shock, remains on Xarelto
#Rheumatoid arthritis
-Home medications include methotrexate and prednisone 5 mg daily
-No known complications of CAD or ILD
-Holding methotrexate, continued on steroid
-No signs of flare
#T2DM with neuropathy
Diet has been advanced.
Stop IV insulin transition to subcu regimen.
Basal bolus regimen has been adjusted. Glargine 35 units nightly. Glargine 30 units daily. NovoLog 5 units AC
Adjust poc prn
#BPH
-Home regimen includes tamsulosin and finasteride
-Currently with Wallace catheter in place for strict I's and O's
-Will perform TOV prior to discharge
DVT prophylaxis: Home Xarelto -
CODE STATUS: Currently full code, family to reconsider based on progression over next day or two
Anticipated Discharge: 24 - 48 hours
Subjective/Interval History
-
Date of Service: November 14, 2024
Objective Data
-
Vital Signs:
Vital Signs
Temp Pulse Resp BP Pulse Ox
97.9 F 79 18 117/67 99
11/14/24 11:22 11/14/24 12:07 11/14/24 11:22 11/14/24 12:07 11/14/24 11:22
I&O
11/13/24 11/14/24 11/15/24
06:59 06:59 06:59
Intake Total 660 / 660 560 / 560
Output Total 1000 / 1000 2910 / 2910
Balance -340 / -340 -2350 / -2350
Physical Exam
-
General: Well Developed, Comfortable and Morbidly Obese
HEENT: Normocephalic, Atraumatic and Moist Mucous Membranes
Respiratory: Rhonchi and Non Labored Respirations; Negative Accessory Resp Muscle Use
Cardiac: Regular Rhythm and S1/S2; Negative Murmur, Rub or Gallop
GI: Soft, Nontender, Nondistended and Normal Bowel Sounds
Genito-urinary: Clear Urine and Wallace
Musculoskeletal: No Clubbing, No Cyanosis, Edema, Right Lower Extrem and Edema, Left Lower Extrem
Skin: Warm and Dry; Negative Rash
Neuro: Awake, Alert, No Motor Deficits and Nonfocal/Grossly Intact
Psych: Calm
--- NOTE | 2024-11-14 16:56 | WOUNDNOTE ---
[facility] RN note: Dr. Pantoja approved air mattress order. Patient is on a Progressa air mattress. Discussed with MORGAN Baxter that they do not use the rotation nor percussion feature of the bed. Confirmed with RT Tere that percussion is not being
used for patient and can change the specialty mattress order to 'air mattress'. Patient can stay on the Progressa bed d/t it is an air mattress.
[2024-11-14 17:03] LABS: Glucose - Point of Care 161 mg/dl (70-99)
[2024-11-14 22:00] LABS: Glucose - Point of Care 164 mg/dl (70-99)
[2024-11-14] MEDS: OCEAN, SALINE MIST 1 SPRAYS NASAL (22:24)
[2024-11-15] VITALS (7 sets, daily range): BP systolic 124–147; BP diastolic 70–87; PULSE 78; BMI 39.6
[2024-11-15] MEDS: ADVAIR HFA 230/21 MCG INHALER 2 PUFF INH ×2 (07:57→20:35)
[2024-11-15] MEDS: SPIRIVA RESPIMAT 2.5 MCG 2 PUFF INH (07:57)
[2024-11-15 08:12] LABS: Glucose - Point of Care 126 mg/dl (70-99)
--- NOTE | 2024-11-15 08:16 | PN.DE.MGMTRT ---
Insulin Management
- -
11/15/2024: Diabetes Management Follow up
71 year old male admitted with Acute respiratory failure due to Influenza A and CAP.
PMH: Asthma/COPD, JOHNNIE, Smoking, 1/2 PPD, HTN, Permanent A-fib/A-flutter, CAD s/p PCI, HLD, Chronic back pain, GERD, Dysphagia, BPH, Nephrolithiasis, Gout
Rheumatoid Arthritis, Occasional ETOH use, T2DM with Neuropathy and Morbid Obesity. States he sees dylan Pacheco, on regular basis. Prior to admission was taking Glargine 60 units HS and Humalog 12 units AC. Recent A1C 8.1% 09/11/24, Cr 1.0, eGFR
>60.
Pt sleeping comfortably, awakens to name call, states he did not sleep well last night, able to discuss diabetes care plan.
11/14 premeal glucose range 122 to 188, required 1 units of corrective insulin with meals @ lunch and dinner.
Fasting glucose this AM 126, HS Lantus stopped 11/12, continue AM Lantus at 35 units increase AC NovoLog 8 units, with Farxiga 10mg daily and low corrective. Recommend AM Lantus only with AC NovoLog at discharge.
Discussed changed insulin doses with patient, he is agreeable.
Will cont to follow Discussed with Nurse
Diabetes History
- -
Type of Diabetes: 2 requiring insulin
Pre-Admission Diabetes Regimen
Lab Results
Hemoglobin A1c Cancelled 11/05/24 10:24
Insulin Pump Settings
IP Diabetes Regimen
11/14/24 11/14/24 11/14/24
11:33 17:01 21:56
POC Glucose 188 H 161 H 164 H
11/15/24
08:11
POC Glucose 126 H
Patient Education
[2024-11-15] MEDS: NOVOLOG FLEXPEN 8 UNITS SC ×3 (08:22→17:50)
[2024-11-15] MEDS: NOVOLOG FLEXPEN-LOW RESISTANCE SC (08:22)
[2024-11-15] MEDS: CYMBALTA DELAYED RELEASE 60 MG PO (08:24)
[2024-11-15] MEDS: NEURONTIN 900 MG PO ×3 (08:24→22:20)
[2024-11-15] MEDS: TOPROL XL 12.5 MG PO (08:25)
[2024-11-15] MEDS: FARXIGA 10 MG PO (08:27)
[2024-11-15] MEDS: MUCINEX 1200 MG PO ×2 (08:27→22:20)
[2024-11-15] MEDS: PROTONIX 40 MG PO (08:27)
[2024-11-15] MEDS: FLOMAX 0.4 MG PO (08:28)
[2024-11-15] MEDS: DELTASONE 5 MG PO (08:28)
[2024-11-15] MEDS: VISBIOME 2 CAP PO (08:28)
[2024-11-15] MEDS: PACERONE 400 MG PO (08:29)
[2024-11-15] MEDS: XARELTO 20 MG PO (08:30)
[2024-11-15] MEDS: THERAGRAN 1 TABLET PO (08:30)
[2024-11-15] MEDS: ZYLOPRIM 100 MG PO (08:30)
[2024-11-15] MEDS: VITAMIN C 500 MG PO (08:30)
[2024-11-15] MEDS: PROSCAR 5 MG PO (08:30)
[2024-11-15] MEDS: MIRALAX 17 GRAMS PO (08:31)
[2024-11-15] MEDS: LAC HYDRIN, AM LACTIN LOTION 1 APPLIC TOPICAL (08:31)
[2024-11-15] MEDS: LANTUS 0.35 UNITS SC (08:33)
[2024-11-15] MEDS: LOTRIMIN 1% CREAM 1 APPLIC TOPICAL ×2 (08:35→22:22)
[2024-11-15] MEDS: DESENEX/MITRAZOL/ZEASORB 1 APPLIC TOPICAL ×2 (08:35→22:22)
[2024-11-15 11:42] LABS: Glucose - Point of Care 295 mg/dl (70-99)
[2024-11-15] MEDS: BUMEX 1 MG PO (12:00)
[2024-11-15] MEDS: NOVOLOG FLEXPEN-LOW RESISTANCE 3 UNITS SC (12:01)
--- NOTE | 2024-11-15 12:12 | PN.CDI ---
CDI
- -
CDI:
Physician Documentation Request
Admit Date: 10/31/24 03:38
Dear Doctor Scarlett.
Please review the following and provide your response in the progress notes.
Clinical Indicators:
Pt admitted with septic shock 2/2 Influenza A/Bacterial PNA / Acute Hypoxic respiratory Failure
Wound care note 11/14, ' [facility] RN Note: Patient seen for HAPI report for stage 2 coccyx pressure injury.....Patient has a small stage 2 sacral/coccyx pressure injury, pink, scant serous drainage. Sacral shaped silicone border foam applied. Patient is
on an air mattress (Progress) and has Comfort air glide repositioning sheet. '
Physician documentation of the type and location of wounds is required for compliant documentation. Based on the above clinical findings and your assessment, please provide the following in your progress note:
1. Location of the ulcer/wound, including laterality.
2. Type (etiology) of ulcer/wound:
- Pressure (decubitus) ulcer
- Non-pressure ulcer
- Other
Use of terms such as suspected, likely, concern for, or probable (associated with a specific diagnosis that is being evaluated, monitored, or treated as if it exists) are acceptable and can be coded in the inpatient setting, when documented at the
time of discharge.
Thank you,
Cherelle Deras RN
CDI Specialist
[place] [facility]
Please use your independent medical judgment in providing your response.
*Source: National Pressure Ulcer Advisory Panel (NPUAP)
--- NOTE | 2024-11-15 13:28 | CM ---
CM reviewed chart, per radha Araujo at [facility], referral was reviewed by medical laboratory manager, denied. Update to daughter, Tiny, [facility], [facility], and [facility] denied. Tiny agreeable for patient return to [facility]
SNF. Per [facility] liaison, no beds available today. Update to Hospitalist. CM will continue to follow for all discharge planning needs.
Plan; return to [facility], likely Monday
--- NOTE | 2024-11-15 14:04 | W.PN.HOSP.TC ---
Addendum entered and electronically signed by Remberto Pantoja MD 11/15/24 14:23:
A-fib rate controlled. Discontinue amiodarone. Continue metoprolol succinate returning back to preadmission dose of 25 mg twice daily.
Original Note:
Today's Communication/Plan
-
Optimized for discharge to [facility].
Assessment / Plan
Assessment / Plan
#Acute hypoxic respiratory failure. Resolved. Weaned off supplemental oxygen as of 11/08.
#Ventilator dependent respiratory failure, extubated 11/03
#Influenza + strep pyogenes pneumonia. Suspected aspiration pneumonia
�Antibiotics, Tamiflu
-Switch to Meropenem, Linezolid. Day 6 of .
� Extubated 11/03
� Pulmonary on board
� Wean O2, O2 goal greater than 2%
� BiPAP at night, daughter is bringing in his own NIV
#Septic shock, shock resolved 11/02
#Persistent fevers
� Continue antibiotics - Meropenem, Linezolid through 11/12
� Recurrent febrile episodes improved
� F/u Repeat blood cultures remains negative.
- F/u Norovirus, CDiff negative
# Ileus resolved
# Permanent atrial fibrillation
-Status post DCCV x 2; nonvalvular; Home regimen includes Xarelto and metoprolol succinate
�NGT back in, resume xarelto
� Continue amiodarone - switch to PO
-Transition to metoprolol succinate decreased dose further down to 12.5 mg twice daily. May need to further down titrate if needed. Remains with soft blood pressure at times.
-Continue with HR goal <120 with critical illness
-Monitor on telemetry here
�Switch to Xopenex
#Acute HFpEF
-Last echocardiogram with preserved LVEF, dilated RV though unable to assess RV systole
-BNP 20,000
-Repeat ECHO - EF 25%
-Transition off IV Lasix to Bumex 1 mg daily. Continue potassium supplementation.
-Resume Lasix
-Initiated on Farxiga
-will need LHC in the future if/once he recovers
#Depression
-suicidal ideation
-pscyh consulted - cleared
-Resume preadmission regimen including duloxetine
#Asthma
#JOHNNIE
-Patient with BiPAP dependent respiratory failure
-Home regimen includes Advair for maintenance, DuoNebs as needed
-Restart advair
-Auto-CPAP at home
-f/u Pulm outpt (Dr. Palomares)
#Transaminitis
� I suspect secondary to heart failure, congestive hepatopathy versus drug-induced
- Monitor with diuresis
#CAD s/p PCI
-Home medications include atorvastatin, metoprolol, and ACEi; not on antiplatelet but is on Xarelto
-Unknown when stent was placed or which coronary it was placed in
-Holding beta-lj due to circulatory shock, remains on Xarelto
#Rheumatoid arthritis
-Home medications include methotrexate and prednisone 5 mg daily
-No known complications of CAD or ILD
-Holding methotrexate, continued on steroid
-No signs of flare
#T2DM with neuropathy
Diet has been advanced.
Required IV insulin drip while in ICU.
Transition to subcutaneous regimen with Lantus dose changed to a.m. Continue AC NovoLog.
#BPH
-Home regimen includes tamsulosin and finasteride
-Currently with Wallace catheter in place for strict I's and O's
-Will perform TOV prior to discharge
DVT prophylaxis: Home Xarelto -
CODE STATUS: Currently full code, family to reconsider based on progression over next day or two
Anticipated Discharge: 24 - 48 hours
Subjective/Interval History
-
Date of Service: November 15, 2024
Objective Data
-
Vital Signs:
Vital Signs
Temp Pulse Resp BP Pulse Ox
97.9 F 77 20 147/80 96
11/15/24 11:27 11/15/24 11:27 11/15/24 11:27 11/15/24 11:27 11/15/24 11:27
I&O
11/14/24 11/15/24 11/16/24
06:59 06:59 06:59
Intake Total 560 / 560 480 / 480 840 / 840
Output Total 2910 / 2910 1000 / 1000 525 / 525
Balance -2350 / -2350 -520 / -520 315 / 315
Physical Exam
-
General: Well Developed, Comfortable and Morbidly Obese
HEENT: Normocephalic, Atraumatic and Moist Mucous Membranes
Respiratory: Rhonchi and Non Labored Respirations; Negative Accessory Resp Muscle Use
Cardiac: Regular Rhythm and S1/S2; Negative Murmur, Rub or Gallop
GI: Soft, Nontender, Nondistended and Normal Bowel Sounds
Genito-urinary: Clear Urine and Wallace
Musculoskeletal: No Clubbing, No Cyanosis, Edema, Right Lower Extrem and Edema, Left Lower Extrem
Skin: Warm and Dry; Negative Rash
Neuro: Awake, Alert, No Motor Deficits and Nonfocal/Grossly Intact
Psych: Calm
[2024-11-15 16:57] LABS: Glucose - Point of Care 186 mg/dl (70-99)
[2024-11-15] MEDS: NOVOLOG FLEXPEN-LOW RESISTANCE 1 UNITS SC (17:49)
[2024-11-15 22:09] LABS: Glucose - Point of Care 189 mg/dl (70-99)
[2024-11-15] MEDS: TOPROL XL 25 MG PO (22:20)
[2024-11-15] MEDS: LIPITOR 40 MG PO (22:20)
[2024-11-15] MEDS: TYLENOL 650 MG PO (22:38)
[2024-11-16] VITALS (7 sets, daily range): BP systolic 92–117; BP diastolic 53–71; PULSE 84; BMI 38.8
[2024-11-16] MEDS: ADVAIR HFA 230/21 MCG INHALER 2 PUFF INH ×2 (07:40→20:39)
[2024-11-16] MEDS: SPIRIVA RESPIMAT 2.5 MCG 2 PUFF INH (07:40)
[2024-11-16] MEDS: LANTUS 0.35 UNITS SC (09:38)
[2024-11-16] MEDS: NOVOLOG FLEXPEN-LOW RESISTANCE 1 UNITS SC ×2 (09:42→12:18)
[2024-11-16] MEDS: NOVOLOG FLEXPEN 8 UNITS SC ×3 (09:42→16:56)
[2024-11-16] MEDS: MIRALAX 17 GRAMS PO (09:43)
[2024-11-16] MEDS: LAC HYDRIN, AM LACTIN LOTION 1 APPLIC TOPICAL (09:43)
[2024-11-16] MEDS: FARXIGA 10 MG PO (09:47)
[2024-11-16] MEDS: CYMBALTA DELAYED RELEASE 60 MG PO (09:47)
[2024-11-16] MEDS: MUCINEX 1200 MG PO ×2 (09:47→20:57)
[2024-11-16] MEDS: NEURONTIN 900 MG PO ×3 (09:47→21:02)
[2024-11-16] MEDS: FLOMAX 0.4 MG PO (09:48)
[2024-11-16] MEDS: VISBIOME 2 CAP PO (09:48)
[2024-11-16] MEDS: XARELTO 20 MG PO (09:48)
[2024-11-16] MEDS: ZESTRIL 5 MG PO (09:48)
[2024-11-16] MEDS: DELTASONE 5 MG PO (09:48)
[2024-11-16] MEDS: PROSCAR 5 MG PO (09:48)
[2024-11-16] MEDS: TOPROL XL 25 MG PO (09:48)
[2024-11-16] MEDS: THERAGRAN 1 TABLET PO (09:48)
[2024-11-16] MEDS: PROTONIX 40 MG PO (09:48)
[2024-11-16] MEDS: VITAMIN C 500 MG PO (09:49)
[2024-11-16] MEDS: ZYLOPRIM 100 MG PO (09:49)
[2024-11-16] MEDS: DESENEX/MITRAZOL/ZEASORB 1 APPLIC TOPICAL ×2 (09:49→20:56)
[2024-11-16] MEDS: LOTRIMIN 1% CREAM 1 APPLIC TOPICAL ×2 (09:50→20:57)
[2024-11-16] MEDS: BUMEX 1 MG PO (12:16)
--- NOTE | 2024-11-16 13:22 | W.PN.HOSP.TC ---
Today's Communication/Plan
-
cw current tx
DC planning
Assessment / Plan
Assessment / Plan
#Acute hypoxic respiratory failure. Resolved. Weaned off supplemental oxygen as of 11/08.
#Ventilator dependent respiratory failure, extubated 11/03
#Influenza + strep pyogenes pneumonia. Suspected aspiration pneumonia
� Finisehed Antibiotics, Tamiflu
� Extubated 11/03
� BiPAP at night
#Septic shock, shock resolved 11/02
#Persistent fevers
� Finished antibiotics - Meropenem, Linezolid
� F/u Repeat blood cultures remains negative.
- F/u Norovirus, CDiff negative
# Ileus resolved
# Permanent atrial fibrillation
-Status post DCCV x 2; nonvalvular; Home regimen includes Xarelto and metoprolol succinate
�NGT back in, resume xarelto
� Continue amiodarone PO
-Transition to metoprolol succinate decreased dose further down to 12.5 mg twice daily. May need to further down titrate if needed. Remains with soft blood pressure at times.
-Continue with HR goal <120 with critical illness
-Monitor on telemetry here
�Switched to Xopenex
#Acute HFpEF
-Last echocardiogram with preserved LVEF, dilated RV though unable to assess RV systole
-BNP 20,000
-Repeat ECHO - EF 25%
-Transitioned off IV Lasix to Bumex 1 mg daily. Continue potassium supplementation.
-Resumed Lasix
-Initiated on Farxiga
-will need LHC in the future if/once he recovers
#Depression
-suicidal ideation
-pscyh consulted - cleared
-Resume preadmission regimen including duloxetine
#Asthma
#JOHNNIE
-Patient with BiPAP dependent respiratory failure
-Home regimen includes Advair for maintenance, DuoNebs as needed
-Restarted advair
-Auto-CPAP at home
-f/u Pulm outpt (Dr. Palomares)
#Transaminitis
� suspect secondary to heart failure, congestive hepatopathy versus drug-induced
- Monitor with diuresis
#CAD s/p PCI
-Home medications include atorvastatin, metoprolol, and ACEi; not on antiplatelet but is on Xarelto
-Unknown when stent was placed or which coronary it was placed in
-Holding beta-lj due to circulatory shock, remains on Xarelto
#Rheumatoid arthritis
-Home medications include methotrexate and prednisone 5 mg daily
-No known complications of CAD or ILD
-Holding methotrexate, continued on steroid
-No signs of flare
#T2DM with neuropathy
Diet has been advanced.
Required IV insulin drip while in ICU.
Transition to subcutaneous regimen with Lantus dose changed to a.m. Continue AC NovoLog.
#BPH
-Home regimen includes tamsulosin and finasteride
-Currently with Wallace catheter in place for strict I's and O's
-Will perform TOV prior to discharge
DVT prophylaxis: Home Xarelto -
CODE STATUS: Currently full code
Anticipated Discharge: > 48 hours
Subjective/Interval History
-
Date of Service: November 16, 2024
Patient says he feels okay. Voicing no specific complaints.
Objective Data
-
Vital Signs:
Vital Signs
Temp Pulse Resp BP Pulse Ox
97.7 F 81 15 104/63 96
11/16/24 11:31 11/16/24 11:31 11/16/24 11:31 11/16/24 11:31 11/16/24 11:31
I&O
11/15/24 11/16/24 11/17/24
06:59 06:59 06:59
Intake Total 480 / 480 1800 / 1800
Output Total 1000 / 1000 2750 / 2750
Balance -520 / -520 -950 / -950
Review of Systems
-
Constitutional: Denies Fever or Chills
Respiratory: Denies Trouble Breathing
Cardiac: Denies Chest Pain
Abdomen/GI: Denies Abdominal Pain, Nausea or Vomiting
Neuro: Denies Dizzy
Physical Exam
-
General: Comfortable
Respiratory: Clear to Auscultation (anteriorly) and Non Labored Respirations; Negative Accessory Resp Muscle Use
Cardiac: Regular Rhythm and S1/S2; Negative Tachycardic
GI: Soft
Neuro: AO x 3
Psych: Calm
[2024-11-16] MEDS: NOVOLOG FLEXPEN-LOW RESISTANCE 3 UNITS SC (16:57)
[2024-11-16 20:53] LABS: Glucose - Point of Care 219 mg/dl (70-99)
[2024-11-16] MEDS: TOPROL XL PO (20:58)
[2024-11-16] MEDS: DULCOLAX 10 MG RECTAL (21:02)
[2024-11-16] MEDS: LIPITOR 40 MG PO (21:02)
[2024-11-17 03:08] VITALS: BP 105/68
[2024-11-17 06:00] VITALS: BMI 39.1
[2024-11-17 07:38] VITALS: BP 109/66
[2024-11-17] MEDS: SPIRIVA RESPIMAT 2.5 MCG 2 PUFF INH (07:53)
[2024-11-17] MEDS: ADVAIR HFA 230/21 MCG INHALER 2 PUFF INH ×2 (07:53→20:27)
[2024-11-17] MEDS: MUCINEX 1200 MG PO ×2 (08:35→19:33)
[2024-11-17] MEDS: DESENEX/MITRAZOL/ZEASORB 1 APPLIC TOPICAL ×2 (08:35→19:33)
[2024-11-17] MEDS: LOTRIMIN 1% CREAM 1 APPLIC TOPICAL ×2 (08:35→19:34)
[2024-11-17] MEDS: LAC HYDRIN, AM LACTIN LOTION 1 APPLIC TOPICAL (08:36)
[2024-11-17] MEDS: LANTUS 0.35 UNITS SC (08:36)
[2024-11-17] MEDS: XARELTO 20 MG PO (08:37)
[2024-11-17] MEDS: FLOMAX 0.4 MG PO (08:37)
[2024-11-17] MEDS: VISBIOME 2 CAP PO (08:37)
[2024-11-17] MEDS: DELTASONE 5 MG PO (08:37)
[2024-11-17] MEDS: NEURONTIN 900 MG PO ×3 (08:37→21:05)
[2024-11-17] MEDS: FARXIGA 10 MG PO (08:38)
[2024-11-17] MEDS: VITAMIN C 500 MG PO (08:38)
[2024-11-17] MEDS: THERAGRAN 1 TABLET PO (08:38)
[2024-11-17] MEDS: TOPROL XL 25 MG PO ×2 (08:38→19:33)
[2024-11-17] MEDS: ZESTRIL 5 MG PO (08:38)
[2024-11-17] MEDS: PROSCAR 5 MG PO (08:38)
[2024-11-17] MEDS: ZYLOPRIM 100 MG PO (08:38)
[2024-11-17] MEDS: PROTONIX 40 MG PO (08:38)
[2024-11-17] MEDS: CYMBALTA DELAYED RELEASE 60 MG PO (08:39)
[2024-11-17] MEDS: MIRALAX PO (08:39)
[2024-11-17 08:59] LABS: Glucose - Point of Care 170 mg/dl (70-99)
[2024-11-17] MEDS: NOVOLOG FLEXPEN-LOW RESISTANCE 1 UNITS SC (08:59)
[2024-11-17] MEDS: NOVOLOG FLEXPEN 8 UNITS SC ×3 (09:00→17:55)
[2024-11-17 11:12] VITALS: BP 112/69
[2024-11-17] MEDS: BUMEX 1 MG PO (11:44)
[2024-11-17 11:58] LABS: Glucose - Point of Care 234 mg/dl (70-99)
[2024-11-17] MEDS: NOVOLOG FLEXPEN-LOW RESISTANCE 2 UNITS SC ×2 (11:58→17:56)
--- NOTE | 2024-11-17 12:57 | W.PN.HOSP.TC ---
Today's Communication/Plan
-
DC planning
Assessment / Plan
Assessment / Plan
#Acute hypoxic respiratory failure. Resolved. Weaned off supplemental oxygen as of 11/08.
#Ventilator dependent respiratory failure, extubated 11/03
#Influenza + strep pyogenes pneumonia. Suspected aspiration pneumonia
� Finished Antibiotics, Tamiflu
� Extubated 11/03
� BiPAP at night
#Septic shock, shock resolved 11/02
#Persistent fevers
� Finished antibiotics - Meropenem, Linezolid
� F/u Repeat blood cultures remains negative.
- F/u Norovirus, CDiff negative
# Ileus resolved
# Permanent atrial fibrillation
-Status post DCCV x 2; nonvalvular; Home regimen includes Xarelto and metoprolol succinate
-cw metoprolol succinate .
-Monitor on telemetry here
�Switched to Xopenex
#Acute HFpEF
-Last echocardiogram with preserved LVEF, dilated RV though unable to assess RV systole
-BNP 20,000
-Repeat ECHO - EF 25%
-Transitioned off IV Lasix to Bumex 1 mg daily. Continue potassium supplementation.
-Initiated on Farxiga
-will need C in the future if/once he recovers
#Depression
-suicidal ideation
-pscy consulted - cleared
-Resume preadmission regimen including duloxetine
#Asthma
#JOHNNIE
-Patient with BiPAP dependent respiratory failure
-Home regimen includes Advair for maintenance, DuoNebs as needed
-Restarted advair
-Auto-CPAP at home
-f/u Pulm outpt (Dr. Palomares)
#Transaminitis
� suspect secondary to heart failure, congestive hepatopathy versus drug-induced
- Monitor with diuresis
#CAD s/p PCI
-Home medications include atorvastatin, metoprolol, and ACEi; not on antiplatelet but is on Xarelto
-Unknown when stent was placed or which coronary it was placed in
#Rheumatoid arthritis
-Home medications include methotrexate and prednisone 5 mg daily
-No known complications of CAD or ILD
-Holding methotrexate, continued on steroid
-No signs of flare
#T2DM with neuropathy
Diet has been advanced.
Required IV insulin drip while in ICU.
Transition to subcutaneous regimen with Lantus dose changed to a.m. Continue AC NovoLog.
#BPH
-Home regimen includes tamsulosin and finasteride
-Currently with Wallace catheter in place for strict I's and O's
-Will perform TOV prior to discharge
DVT prophylaxis: Home Xarelto -
CODE STATUS: Currently full code
Anticipated Discharge: Within 24 hours
Subjective/Interval History
-
Date of Service: November 17, 2024
Voices no specific complaints. In specific denies any shortness of breath or chest pain. No nausea vomiting. Tolerating diet. Looking forward to go to rehab.
Objective Data
-
Vital Signs:
Vital Signs
Temp Pulse Resp BP Pulse Ox
97.8 F 82 15 112/69 93
11/17/24 11:12 11/17/24 11:12 11/17/24 11:12 11/17/24 11:44 11/17/24 11:12
I&O
11/16/24 11/17/24 11/18/24
06:59 06:59 06:59
Intake Total 1800 / 1800 1919 / 1919
Output Total 2750 / 2750 2024
Balance -950 / -950 -105 / -105
Review of Systems
-
Constitutional: Denies Fever or Chills
Cardiac: Denies Chest Pain
Abdomen/GI: Denies Abdominal Pain, Nausea or Vomiting
Neuro: Denies Dizzy
Physical Exam
-
General: Comfortable
Respiratory: Clear to Auscultation and Non Labored Respirations; Negative Accessory Resp Muscle Use
Cardiac: Regular Rhythm and S1/S2
GI: Soft
Neuro: AO x 3
[2024-11-17 15:14] VITALS: BP 110/66
[2024-11-17 16:18] LABS: Glucose - Point of Care 223 mg/dl (70-99)
[2024-11-17 19:53] VITALS: BP 102/62
[2024-11-17] MEDS: LIPITOR 40 MG PO (21:05)
[2024-11-17 21:29] LABS: Glucose - Point of Care 204 mg/dl (70-99)
[2024-11-17 23:20] VITALS: BP 101/67
[2024-11-18 03:08] VITALS: BP 101/68
[2024-11-18 06:00] VITALS: BMI 38.9
[2024-11-18 08:08] VITALS: BP 105/69
[2024-11-18 08:16] LABS: Glucose - Point of Care 142 mg/dl (70-99)
[2024-11-18] MEDS: ADVAIR HFA 230/21 MCG INHALER 2 PUFF INH (08:20)
[2024-11-18] MEDS: SPIRIVA RESPIMAT 2.5 MCG 2 PUFF INH (08:20)
[2024-11-18] MEDS: NOVOLOG FLEXPEN-LOW RESISTANCE SC (08:37)
--- NOTE | 2024-11-18 08:43 | PN.DE.MGMTRT ---
Insulin Management
- -
11/18/2024: Diabetes Management Follow up
71 year old male admitted with Acute respiratory failure due to Influenza A and CAP.
PMH: Asthma/COPD, JOHNNIE, Smoking, 1/2 PPD, HTN, Permanent A-fib/A-flutter, CAD s/p PCI, HLD, Chronic back pain, GERD, Dysphagia, BPH, Nephrolithiasis, Gout
Rheumatoid Arthritis, Occasional ETOH use, T2DM with Neuropathy and Morbid Obesity. States he sees Dr. Gillespie, dylan, on regular basis. Prior to admission was taking Glargine 60 units HS and Humalog 12 units AC. Recent A1C 8.1% 09/11/24, Cr 1.0, eGFR
>60.
Pt awake, alert, sitting up in bed, offers no complaints, able to discuss diabetes care plan.
11/17 premeal glucose range 170 to 234, required 2 units of corrective insulin with meals @ lunch and dinner.
Fasting glucose this AM 142, HS Lantus stopped 11/12, continue AM Lantus at 35 units.
Increase AC NovoLog to 10 units, with Farxiga 10mg daily and low corrective.
Recommend AM Lantus 35 units and AC NovoLog 10 units at discharge.
Will cont to follow Discussed with Nurse
Diabetes History
- -
Type of Diabetes: 2 requiring insulin
Pre-Admission Diabetes Regimen
Lab Results
Hemoglobin A1c Cancelled 11/05/24 10:24
Insulin Pump Settings
IP Diabetes Regimen
11/17/24 11/17/24 11/17/24
08:58 11:57 16:17
POC Glucose 170 H 234 H 223 H
11/17/24 11/18/24
21:27 08:15
POC Glucose 204 H 142 H
Meal type: Lunch
Amount consumed: 100%
Patient Education
[2024-11-18] MEDS: NEURONTIN 900 MG PO (09:29)
[2024-11-18] MEDS: MUCINEX 1200 MG PO (09:29)
[2024-11-18] MEDS: ZESTRIL 5 MG PO (09:29)
[2024-11-18] MEDS: VITAMIN C 500 MG PO (09:29)
[2024-11-18] MEDS: VISBIOME 2 CAP PO (09:29)
[2024-11-18] MEDS: FARXIGA 10 MG PO (09:29)
[2024-11-18] MEDS: CYMBALTA DELAYED RELEASE 60 MG PO (09:30)
[2024-11-18] MEDS: MIRALAX 17 GRAMS PO (09:30)
[2024-11-18] MEDS: THERAGRAN 1 TABLET PO (09:31)
[2024-11-18] MEDS: DELTASONE 5 MG PO (09:31)
[2024-11-18] MEDS: ZYLOPRIM 100 MG PO (09:31)
[2024-11-18] MEDS: FLOMAX 0.4 MG PO (09:31)
[2024-11-18] MEDS: XARELTO 20 MG PO (09:31)
[2024-11-18] MEDS: PROSCAR 5 MG PO (09:31)
[2024-11-18] MEDS: TOPROL XL 25 MG PO (09:31)
[2024-11-18] MEDS: PROTONIX 40 MG PO (09:31)
[2024-11-18] MEDS: NOVOLOG FLEXPEN SC (09:33)
[2024-11-18] MEDS: LAC HYDRIN, AM LACTIN LOTION 1 APPLIC TOPICAL (09:33)
[2024-11-18] MEDS: NOVOLOG FLEXPEN 10 UNITS SC ×2 (09:33→13:12)
[2024-11-18] MEDS: DESENEX/MITRAZOL/ZEASORB 1 APPLIC TOPICAL (09:33)
[2024-11-18] MEDS: LOTRIMIN 1% CREAM 1 APPLIC TOPICAL (09:34)
[2024-11-18] MEDS: LANTUS 0.35 UNITS SC (09:46)
[2024-11-18] MEDS: BUMEX 1 MG PO (10:16)
--- NOTE | 2024-11-18 11:09 | CM ---
Addendum entered by Didi Chapa 11/18/24 11:49:
CM spoke with patients daughter, aware of discharge to [facility]. IMM verbally reviewed, agreeable to discharge, will arrive to Hospital to see patient before discharge.
Original Note:
CM reviewed chart, spoke with admissions at [facility], able to accept patient for rehab today. Phone call to patients daughter, Tiny, to discuss discharge plan and review IMM, left voicemail. Patient scheduled for 2:30 p.m. Update to [facility]
with transport time. CM will continue to follow for all discharge planning needs.
Plan; [facility], 2:30 p.m. ambulance transport
[facility]
Report: [phone]
[2024-11-18 11:28] VITALS: BP 107/74; BP 129/75; BP 138/83
[2024-11-18 11:37] VITALS: BP 104/69
[2024-11-18 12:05] LABS: Glucose - Point of Care 165 mg/dl (70-99)
--- NOTE | 2024-11-18 12:20 | W.DS.TRANS ---
DC Summary - [facility] Att[facility]
-
Discharge Instructions:
Discharge Diagnosis/Procedures Acute hypoxic respiratory failure secondary to
influenza and bacterial pneumonia.
Diet Diabetic, Carb Controlled
Instructions:
Stand-Alone Forms:
Changes to Home Medications: Yes
Discharge Medications:
DC Medications w/original date entered in [facility]
prednisone 5 mg tablet 5 mg PO DAILY RA 12/23/14
tamsulosin 0.4 mg capsule 0.4 mg PO DAILY Urinary Issue 12/23/14
allopurinol 100 mg tablet 100 mg PO DAILY Gout 07/01/19
atorvastatin 40 mg tablet (Lipitor) 40 mg PO HS High Cholesterol 07/01/19
finasteride 5 mg tablet 5 mg PO DAILY Urinary Issue 07/22/19
omega-3 acid ethyl esters 1 gram capsule (Lovaza) 1 gm PO TID High Cholesterol 07/22/19
leucovorin calcium 10 mg tablet 10 mg PO DAILY rheumatoid arthritis 04/17/23
bumetanide 1 mg tablet 1 mg PO DAILY Fluid Retention/Swelling 06/05/24
duloxetine 60 mg capsule,delayed release 60 mg PO DAILY Depression 06/05/24
fluticasone 250 mcg-salmeterol 50 mcg/dose blistr powdr for inhalation (Advair Diskus) 1 inh inhalation R BID Lung/Breathing Issues 06/05/24
methenamine hippurate 1 gram tablet 1 g PO BID prophylaxis 06/05/24
nortriptyline 50 mg capsule 50 mg PO DAILY Depression 06/05/24
metoprolol succinate 50 mg tablet,extended release 24 hr 50 mg PO BID #60 tabs 06/11/24
acetaminophen 325 mg tablet 650 mg PO Q6HPRN PRN mild pain/temp>100 09/10/24
ammonium lactate 12 % lotion 1 applic topical QPM B/L lower legs 09/10/24
ascorbic acid (vitamin C) 500 mg tablet (Vitamin C) 500 mg PO DAILY Supplement 09/10/24
bisacodyl 10 mg rectal suppository 10 mg MO DAILYPRN PRN constipation, mom ineffective 09/10/24
fluticasone propionate 50 mcg/actuation nasal spray,suspension 2 spray intranasal BID Allergies 09/10/24
guaifenesin 400 mg tablet 1,200 mg PO BID Congestion 09/10/24
ipratropium 0.5 mg-albuterol 3 mg (2.5 mg base)/3 mL nebulization soln 3 ml inhalation R BID Lung/Breathing Issues 09/10/24
magnesium hydroxide 400 mg/5 mL oral suspension (Milk of Magnesia) 30 ml PO [id number] PRN no bm x3 days 09/10/24
methotrexate sodium 25 mg/mL injection solution 25 mg SC SA RA 09/10/24
omeprazole 20 mg capsule,delayed release 20 mg PO DAILY Gastrointestinal Issue 09/10/24
rivaroxaban 20 mg tablet (Xarelto) 20 mg PO DAILY Blood Clot Prevention/Tx 09/10/24
therapeutic multivitamin 1 tab PO DAILY Supplement 09/10/24
gabapentin 800 mg tablet (Neurontin) 900 mg (1.125 x 800 mg) PO TID Neurological Condition #0 tabs 09/17/24
oxycodone 5 mg tablet 5 mg PO Q4HPRN PRN moderate pain #14 tabs 09/17/24
Lactobac no.2-Bifidobac no.1-S. thermo 112.5 billion cell capsule (Visbiome) 2 cap PO DAILY Supplement 11/04/24
benzocaine 15 mg-menthol 2.6 mg lozenges 1 inderjit PO Q4HPRN PRN sore throat 11/04/24
clotrimazole 1 % topical cream 1 applic topical BID groin 11/04/24
lisinopril 5 mg tablet 5 mg PO DAILY Blood Pressure 11/04/24
loperamide 2 mg tablet 2 mg PO Q6HPRN PRN diarrhea 11/04/24
potassium chloride 20 mEq tablet,extended release 20 meq PO DAILY Electrolyte Repletion 11/04/24
Insulin Glargine Lantus [Lantus] 35 units As Directed mls/hr SC DAILY 11/15/24
dapagliflozin propanediol 10 mg tablet 10 mg PO DAILY #30 tabs 11/15/24
insulin aspart U-100 100 unit/mL (3 mL) subcutaneous pen 10 unit (0.1 mL) SC AC #15 mL 11/18/24
Home Medication Changes
Insulin dose changed
Pending Results: No
[2024-11-18] MEDS: NOVOLOG FLEXPEN-LOW RESISTANCE 1 UNITS SC (13:11)
--- NOTE | 2024-11-18 13:28 | PTCARENOTE ---
Report given to Zenaida MORA at [facility].
[2024-11-18 13:34] VITALS: BP 107/74; BP 129/75; BP 138/83
[2024-11-21 12:29] LABS: Glucose - Point of Care 127 mg/dl (70-99)
== END 2024-11-18 14:55 | DRG 871 ==
LOC: 4 WEST ACU 03:38
PROVIDERS: Internal Medicine; Internal Medicine Critical Care Medicine; Nurse Practitioner Family; Nurse Practitioner Primary Care; Radiology Diagnostic Radiology; ADMITTING PHYSICIAN Internal Medicine; ATTENDING PHYSICIAN Internal Medicine; CONSULT PHYSICIAN Internal Medicine; CONSULT PHYSICIAN Internal Medicine Cardiovascular Disease; CONSULT PHYSICIAN Internal Medicine Infectious Disease; CONSULT PHYSICIAN Physical Medicine & Rehabilitation; EMERGENCY PHYSICIAN Emergency Medicine; FAMILY PHYSICIAN Student in an Organized Health Care Education/Training Program; OTHER PHYSICIAN Psychiatry & Neurology Psychiatry
PROC: 5A1945Z Respiratory Ventilation, 24-96 Consecutive Hours (ICD-10-PCS; 2024-10-31)
PROC: 0BH17EZ Insertion of Endotracheal Airway into Trachea, Via Natural or Artificial Opening (ICD-10-PCS; 2024-10-31)
PROC: 02HV33Z Insertion of Infusion Device into Superior Vena Cava, Percutaneous Approach (ICD-10-PCS; 2024-10-31)
PROC: 0DH67UZ Insertion of Feeding Device into Stomach, Via Natural or Artificial Opening (ICD-10-PCS; 2024-10-31)
PROC: 0BP1XDZ Removal of Intraluminal Device from Trachea, External Approach (ICD-10-PCS; 2024-11-03)
PROC: 0D9670Z Drainage of Stomach with Drainage Device, Via Natural or Artificial Opening (ICD-10-PCS; 2024-11-04)
PROC: 05H333Z Insertion of Infusion Device into Right Innominate Vein, Percutaneous Approach (ICD-10-PCS; 2024-11-04)
PROC: 02PYX3Z Removal of Infusion Device from Great Vessel, External Approach (ICD-10-PCS; 2024-11-05)
PROC: 5A09357 Assistance with Respiratory Ventilation, Less than 24 Consecutive Hours, Continuous Positive Airway Pressure (ICD-10-PCS; 2024-11-08)
DX: A41.89 Other specified sepsis (principal); G92.8 Other toxic encephalopathy; J10.08 Influenza due to other identified influenza virus with other specified pneumonia; J15.4 Pneumonia due to other streptococci; R65.21 Severe sepsis with septic shock; J96.21 Acute and chronic respiratory failure with hypoxia; J69.0 Pneumonitis due to inhalation of food and vomit; I50.23 Acute on chronic systolic (congestive) heart failure; N17.9 Acute kidney failure, unspecified; I42.9 Cardiomyopathy, unspecified; J44.0 Chronic obstructive pulmonary disease with (acute) lower respiratory infection; I48.21 Permanent atrial fibrillation; I48.92 Unspecified atrial flutter; Z68.42 Body mass index [BMI] 45.0-49.9, adult; J98.11 Atelectasis; Z99.11 Dependence on respirator [ventilator] status; E87.3 Alkalosis; E87.1 Hypo-osmolality and hyponatremia; J96.12 Chronic respiratory failure with hypercapnia; R45.851 Suicidal ideations; K56.7 Ileus, unspecified; D84.821 Immunodeficiency due to drugs; F05 Delirium due to known physiological condition; E11.40 Type 2 diabetes mellitus with diabetic neuropathy, unspecified; E78.00 Pure hypercholesterolemia, unspecified; I11.0 Hypertensive heart disease with heart failure; I25.10 Atherosclerotic heart disease of native coronary artery without angina pectoris; E66.01 Morbid (severe) obesity due to excess calories; E11.65 Type 2 diabetes mellitus with hyperglycemia; K21.9 Gastro-esophageal reflux disease without esophagitis; K22.2 Esophageal obstruction; G89.29 Other chronic pain; G47.33 Obstructive sleep apnea (adult) (pediatric); N40.0 Benign prostatic hyperplasia without lower urinary tract symptoms; E87.5 Hyperkalemia; E66.813 Obesity, class 3; I27.23 Pulmonary hypertension due to lung diseases and hypoxia; M10.9 Gout, unspecified; M06.9 Rheumatoid arthritis, unspecified; L89.152 Pressure ulcer of sacral region, stage 2; I45.10 Unspecified right bundle-branch block; F32.A Depression, unspecified; R74.01 Elevation of levels of liver transaminase levels; F43.21 Adjustment disorder with depressed mood; E86.1 Hypovolemia; D64.9 Anemia, unspecified; Z96.641 Presence of right artificial hip joint; Z96.653 Presence of artificial knee joint, bilateral; Z79.01 Long term (current) use of anticoagulants; Z11.52 Encounter for screening for COVID-19; Z79.51 Long term (current) use of inhaled steroids; Z79.52 Long term (current) use of systemic steroids; Z79.4 Long term (current) use of insulin; Z95.5 Presence of coronary angioplasty implant and graft; Z87.442 Personal history of urinary calculi; Z88.6 Allergy status to analgesic agent; Z88.1 Allergy status to other antibiotic agents; Z88.3 Allergy status to other anti-infective agents; Z88.5 Allergy status to narcotic agent; Z88.0 Allergy status to penicillin; Z88.2 Allergy status to sulfonamides; Z88.8 Allergy status to other drugs, medicaments and biological substances; Z79.631 Long term (current) use of antimetabolite agent; Z22.322 Carrier or suspected carrier of Methicillin resistant Staphylococcus aureus; Z96.82 Presence of neurostimulator; Z91.199 Patient's noncompliance with other medical treatment and regimen due to unspecified reason; Z78.1 Physical restraint status; Z91.041 Radiographic dye allergy status; Z87.01 Personal history of pneumonia (recurrent)
CPT/HCPCS: 31500; 36600; 43752; 51702; 70450; 71045; 71250; 71275; 74018; 74176; 74177; 80048; 80053; 80202; 81003; 81015; 82550; 82805; 82947; 82962; 83036; 83605; 83690; 83735; 83880; 84100; 84145; 84478; 84484; 85025; 85027; 85610; 85730; 87040; 87070; 87077; 87086; 87147; 87205; 87324; 87449; 87502; 87798; 87811; 87899; 92526; 92610; 93005; 93306; 93922; 93925; 93971; 94002; 94003; 94640; 94660; 96361; 96365; 96366; 96367; 96375; 97110; 97140; 97163; 97167; 97530; 97535; 99291; J2020; Q9967

== ENCOUNTER 2024-12-28 10:47 | Emergency (ER) | payer MEDICARE, OTHER, SELFPAY ==
[2024-12-28 10:57] VITALS: BP 115/68
--- NOTE | 2024-12-28 11:39 | ED.GENMED ---
History of Present Illness
<Franko Jennings PA-C - Last Filed: 12/28/24 13:53>
General
Chief Complaint: Urinary Symptoms
Source: patient and family
Time Seen by Provider: 12/28/24 11:17
History of Present Illness
History of Present Illness:
79-year-old male with past medical history of COPD, A-fib, CAD, hypertension, hyperlipidemia, insulin-dependent diabetes, peripheral vascular disease, admitted back in October for flu pneumonia with hypoxic respiratory failure and intubated presenting
to the emergency department for dark cloudy urine with sediment that patient noticed this morning but with cloudy urine starting over the last few days. History of frequent urinary tract infections with similar presentations. Patient incidentally
had a follow-up visit already scheduled with his urologist for next week but due to the sediment noted daughter brought him to the ER to be further evaluated. Patient notes that he was just recently discharged from [facility] after
extensive hospitalization. The only other symptom patient noted was intermittent lightheadedness but he has been experiencing this over the last few weeks and not much different today. He otherwise denies any fevers, chills, rigors, urinary
frequency/urgency or dysuria although he did note last week having some discomfort when he initiated his urinary stream but this has since resolved
Past History
<Franko Jennings PA-C - Last Filed: 12/28/24 13:53>
Past History
ED Past Medical History: Arrthythmia, CAD, COPD, HTN, Hypercholesterolemia, IDDM and Other
ED Past Surgical History: Cardiac, Orthopedic and Other
Social History
Tobacco: Former smoker
Alcohol: None
Drug: None
Personal:
Living: with family
Employment: Not employed
Review of Systems
<Franko Jennings PA-C - Last Filed: 12/28/24 13:53>
Review of Systems
All Other Systems: ROS reviewed and negative except as documented in HPI and ROS
Phy Exam
<Franko Jennings PA-C - Last Filed: 12/28/24 13:53>
Physical Exam
Physical Exam:
GENERAL: Alert , in no apparent distress, overweight
EYE: clear conjunctiva b/l
HEAD: NCAT
ENT: o/p clr, mmm.
CARDIAC: Regular rate and rhythm .
LUNGS: Clear breath sounds bilaterally, no acute respiratory distress, no wheezes/rales/rhonchi
ABDOMEN: Soft, without focal tenderness, no r/g, no cvat
NEUROLOGICAL: Alert and oriented
SKIN: Warm and dry, scattered abrasions to bilateral lower extremities, skin hyperpigmentation to bilateral lower extremities is baseline per patient and daughter
MUSCULOSKELETAL: Trace ankle edema bilateral, well perfused.
PSYCH: Normal and appropriate interaction.
Scores
<Franko Jennings PA-C - Last Filed: 12/28/24 13:53>
Heart Failure Risk
Heart Failure Risk Score: Not Applicable
Heart Score for Chest Pain Patients
STEMI patient?: Not applicable
Withdrawal Assessment of Alcohol
Withdrawal Assessment Completed?: Not applicable
Sepsis
<Franko Jennings PA-C - Last Filed: 12/28/24 13:53>
Sepsis Screening
Sepsis Assessment: Sepsis Ruled Out
Sepsis Screen
Sepsis Screen: Sepsis Ruled Out
Date: 12/28/24
Time: 13:53
<Nahum Blanchard PA-C - Last Filed: 12/30/24 06:09>
Sepsis Screen
Sepsis Screen: Sepsis Ruled Out
Date: 12/30/24
Time: 06:08
Course
<MEENA Stewart Last Filed: 12/28/24 13:53>
Orders/Labs/Results
Orders:
Orders
12/28/24 10:59
Electrocardiogram (*1) Urgent
Reason for Study: Fatigue / Weakness
12/28/24 11:00
EKG- Treatment ONCE
12/28/24 12:04
Complete Blood Count/With Diff Urgent
Comprehensive Metabolic Panel Urgent
Urinalysis Reflex To Culture Urgent
Date Specimen was Collected: 12/28/24
Time Specimen was Collected: 11:55
Urine Microscopic Reflex Cult Urgent
Urine Culture Urgent
VISHAL Source: U
Specimen Description:
Date Specimen was Collected: 12/28/24
Time Specimen was Collected: 11:55
12/28/24 13:02
Cefepime HCl [Maxipime] 2,000 mg IV NOW STA
Abnormal Lab Results
12/28/24
12:04
RBC 3.66 L 10^6/uL
(4.70-6.10)
Hgb 11.4 L g/dL
(13.0-18.0)
Hct 35.8 L %
(39.0-52.0)
MCV 97.8 H fL
(80.0-94.0)
MCH 31.1 H pg
(27.0-31.0)
MCHC 31.8 L g/dL
(33.0-37.0)
RDW 17.9 H %
(11.5-14.5)
MPV 10.7 H fL
(7.4-10.4)
Abs Immat Gran (auto) 0.1 H 10^3/uL
(0-0.05)
Immature Gran % 0.7 H %
(0-0.5)
BUN 25 H mg/dl
(9-20)
Glucose 212 H mg/dl
(70-99)
Albumin 3.3 L g/dl
(3.5-5.0)
Ur Occult Blood Reflex 4+ A
(Negative)
Urine Nitrite (Reflex) Positive A
(Negative)
Leukocyte Esterase Rfl 3+ A
(Negative)
Urine WBC (Reflex) >100 A /HPF
(0-5)
Urine Glucose 4+ A
(Negative)
Urine Albumin (Reflex) 3+ A
(Neg - Trace)
12/28/24 12:04
12/28/24 12:04
Vital Signs
Initial and Last Documented VS:
Initial Vital Signs
Temp Pulse Resp Pulse Ox
97.8 F 77 18 98
12/28/24 10:52 12/28/24 10:52 12/28/24 10:52 12/28/24 10:52
Last Documented Vital Signs
Temp Pulse Resp BP Pulse Ox
97.8 F 82 16 101/64 94
12/28/24 10:52 12/28/24 13:46 12/28/24 13:46 12/28/24 13:46 12/28/24 13:46
<Nahum Blanchard PA-C - Last Filed: 12/30/24 06:09>
Orders/Labs/Results
Orders:
Orders
12/28/24 10:59
Electrocardiogram (*1) Urgent
Reason for Study: Fatigue / Weakness
12/28/24 11:00
EKG- Treatment ONCE
12/28/24 12:04
Complete Blood Count/With Diff Urgent
Comprehensive Metabolic Panel Urgent
Urinalysis Reflex To Culture Urgent
Date Specimen was Collected: 12/28/24
Time Specimen was Collected: 11:55
Urine Microscopic Reflex Cult Urgent
Urine Culture Urgent
VISHAL Source: U
Specimen Description:
Date Specimen was Collected: 12/28/24
Time Specimen was Collected: 11:55
12/28/24 13:02
Cefepime HCl [Maxipime] 2,000 mg IV NOW STA
Abnormal Lab Results
12/28/24
12:04
RBC 3.66 L 10^6/uL
(4.70-6.10)
Hgb 11.4 L g/dL
(13.0-18.0)
Hct 35.8 L %
(39.0-52.0)
MCV 97.8 H fL
(80.0-94.0)
MCH 31.1 H pg
(27.0-31.0)
MCHC 31.8 L g/dL
(33.0-37.0)
RDW 17.9 H %
(11.5-14.5)
MPV 10.7 H fL
(7.4-10.4)
Abs Immat Gran (auto) 0.1 H 10^3/uL
(0-0.05)
Immature Gran % 0.7 H %
(0-0.5)
BUN 25 H mg/dl
(9-20)
Glucose 212 H mg/dl
(70-99)
Albumin 3.3 L g/dl
(3.5-5.0)
Ur Occult Blood Reflex 4+ A
(Negative)
Urine Nitrite (Reflex) Positive A
(Negative)
Leukocyte Esterase Rfl 3+ A
(Negative)
Urine WBC (Reflex) >100 A /HPF
(0-5)
Urine Glucose 4+ A
(Negative)
Urine Albumin (Reflex) 3+ A
(Neg - Trace)
12/28/24 12:04
12/28/24 12:04
Vital Signs
Initial and Last Documented VS:
Initial Vital Signs
Temp Pulse Resp Pulse Ox
97.8 F 77 18 98
12/28/24 10:52 12/28/24 10:52 12/28/24 10:52 12/28/24 10:52
Last Documented Vital Signs
Temp Pulse Resp BP Pulse Ox
97.8 F 82 16 101/64 94
12/28/24 10:52 12/28/24 13:46 12/28/24 13:46 12/28/24 13:46 12/28/24 13:46
<Franko Jennings PA-C - Last Filed: 12/28/24 13:53>
MDM/Problems Addressed
Differential Diagnosis Includes:
Urinary tract infection, acute kidney injury, no symptoms to suggest epididymitis or orchitis, electrolyte derangement
MDM/Problems Addressed:
79-year-old male presenting to the ER for evaluation of dark cloudy urine with increased sediment, symptoms ongoing over the last few days. No fevers, chills, rigors and patient is otherwise hemodynamically stable. Will check labs and urinalysis.
Disposition pending. Patient already has prearranged follow-up with primary care provider for this coming week.
Based off of record review in May 2024 patient had greater than 100,000 CFU of Serratia marcescens which had multidrug resistance
<Franko Jennings PA-C - Last Filed: 12/28/24 13:53>
*Pulse Oximetry
Patient hypoxic: no
*Critical Care Note
Total Time (30-74mins, 75-104mins- exclusive of procedures): Not Applicable
Data Reviewed
Review of Other/Old Records Reveals: Labs and Records
<Franko Jennings PA-C - Last Filed: 12/28/24 13:53>
Patient Management
Social determinants of health affecting care: Living situation and Strong social support
Escalation/DeEscalation of care consider admission/obs:
Patient's urinalysis nitrite positive with 3+ leukocytes. Will treat here with a dose of Maxipime and discharged home with a prescription for cefdinir. I did explain to the patient and daughter that based off previous culture it is possible
patient may need to return for IV antibiotics especially if symptoms not improve or if he is to worsen. They both expressed understanding. Patient remains afebrile and overall well-appearing. Aware of return precautions to the ER.
<Nahum Blanchard PA-C - Last Filed: 12/30/24 06:09>
Update Note
Update Note:
December 30 6:08 AM. Urine culture shows greater than 100,000 colony-forming units of gram-negative bacilli. On antibiotics. Sensitivities
ED Attending Note
<Franko Jennings PA-C - Last Filed: 12/28/24 13:53>
-
Portions of this chart may have been created with voice recognition software.� Occasional wrong word or��sound alike� substitutions may have occurred due to the inherent limitations of voice recognition software.
Discharge Plan
Departure
Patient Disposition: Home (Routine Discharge)
Date of Disposition: 12/28/24
Time of Disposition: 13:04
Patient with high blood pressure during this ER visit?: No
Discharge Problem:
Urinary tract infection
Instructions: Urinary Tract Infection, Adult (DC)
Prescriptions:
New
cefdinir 300 mg capsule
300 mg PO BID 7 Days Qty: 14 0RF
No Action
prednisone 5 MG tablet
5 mg PO DAILY
tamsulosin 0.4 MG capsule
0.4 mg PO DAILY
atorvastatin [Lipitor] 40 MG tablet
40 mg PO HS
allopurinol 100 MG tablet
100 mg PO DAILY
finasteride 5 MG tablet
5 mg PO DAILY
omega-3 acid ethyl esters [Lovaza] 1 GM capsule
1 gm PO TID
leucovorin calcium 10 mg Tablet
10 mg PO DAILY
fluticasone propion-salmeterol [Advair Diskus] 250-50 mcg/dose Blister With Device
1 inh INHALATION R BID
methenamine hippurate 1 gram Tablet
1 g PO BID
nortriptyline 50 mg Capsule
50 mg PO DAILY
duloxetine 60 mg Capsule,Delayed Release(Dr/Ec)
60 mg PO DAILY
bumetanide 1 mg Tablet
1 mg PO DAILY
metoprolol succinate 50 mg Tablet Extended Release 24 Hr
50 mg PO BID Qty: 60 0RF
Rx Instructions:
hold for SBP<100 or HR<60
acetaminophen 325 mg Tablet
650 mg PO Q6HPRN PRN (Reason: mild pain/temp>100)
ipratropium-albuterol 0.5 mg-3 mg(2.5 mg base)/3 mL Solution For Nebulization
3 ml INHALATION R BID
ammonium lactate 12 % Lotion
1 applic TOPICAL QPM
therapeutic multivitamin Tablet
1 tab PO DAILY
methotrexate sodium 25 mg/mL Solution
25 mg SC SA
magnesium hydroxide [Milk of Magnesia] 400 mg/5 mL Suspension
30 ml PO [id number] PRN (Reason: no bm x3 days)
ascorbic acid (vitamin C) [Vitamin C] 500 mg Tablet
500 mg PO DAILY
bisacodyl 10 mg Suppository
10 mg [place] DAILYPRN PRN (Reason: constipation, mom ineffective)
omeprazole 20 mg Capsule,Delayed Release(Dr/Ec)
20 mg PO DAILY
fluticasone propionate 50 mcg/actuation [place],Suspension
2 spray INTRANASAL BID
guaifenesin 400 mg Tablet
1,200 mg PO BID
Xarelto 20 MG tablet
20 mg PO DAILY
gabapentin [Neurontin] 800 MG tablet
900 mg PO TID Qty: 0 0RF
oxycodone 5 mg Tablet
5 mg PO Q4HPRN PRN (Reason: moderate pain) Qty: 14 0RF
loperamide 2 mg Tablet
2 mg PO Q6HPRN PRN (Reason: diarrhea)
lisinopril 5 mg Tablet
5 mg PO DAILY
Rx Instructions:
hold if SBP<100
clotrimazole 1 % Cream
1 applic TOPICAL BID
Visbiome 112.5 billion cell Capsule
2 cap PO DAILY
benzocaine-menthol 15-2.6 mg Lozenge
1 inderjit PO Q4HPRN PRN (Reason: sore throat)
potassium chloride 20 mEq Tablet Extended Release
20 meq PO DAILY
dapagliflozin propanediol 10 mg Tablet
10 mg PO DAILY Qty: 30 0RF
Insulin Glargine Lantus [Lantus] 35 UNITS
Subcutaneous Insulin Syringe [Syringe-Insulin] 0 UNIT
As Directed mls/hr SC DAILY
Ordered By: Remberto Pantoja MD
Last Taken: Unknown
insulin aspart U-100 100 unit/mL (3 mL) Insulin Pen
10 unit SC AC Qty: 15 0RF
melatonin 5 mg capsule
5 mg PO HS Qty: 14 0RF
Referrals:
Heron Santiago, DO [Non-Admitting Privileges] -
Interventions
Interventions:
*Risk Screen - Suicide Last Done: 12/28/24 12:00
*General Assessment Last Done: 12/28/24 12:00
*Neglect/Abuse Screening Last Done: 12/28/24 12:00
*ED- Fall Risk Assessment Last Done: 12/28/24 12:00
*ED COVID-19 Vaccine History Last Done: 12/28/24 12:00
*Nursing Disposition Last Done: 12/28/24 13:47
ED-Male Genitourinary Assessment Last Done: 12/28/24 13:10
Discharge Date and Time
Discharge Date/Time: 12/28/24 13:47
Print Language: SAUDI ARABIAN
[2024-12-28 12:00] VITALS: BP 91/53
[2024-12-28 12:23] LABS: % Basophils 0.1 % (0-2); % Immature Granulocytes 0.7 % (0-0.5); % Lymphocytes 24.7 % (20.5-51.1); % Monocytes 7.1 % (1.7-9.3); % Neutrophils 67.4 % (42.2-75.2); Absolute Immature Granulocytes 0.1 10^3/uL (0-0.05); Absolute Lymphocytes 1.8 10^3/uL (1.2-3.4); Absolute Monocytes 0.5 10^3/uL (0.1-0.6); Absolute Neutrophils 4.8 10^3/uL (1.4-6.5); Hematocrit 35.8 % (39.0-52.0); Hemoglobin 11.4 g/dL (13.0-18.0); Mean Corp Hgb Conc. 31.8 g/dL (33.0-37.0); Mean Corpuscular Hgb 31.1 pg (27.0-31.0); Mean Corpuscular Volume 97.8 fL (80.0-94.0); Mean Platelet Volume 10.7 fL (7.4-10.4); Nucleated Red Blood Cells % 0 % (-); Platelet Count 205 10^3/uL (130-400); Red Blood Cell Count 3.66 10^6/uL (4.70-6.10); Red Cell Dist. Width 17.9 % (11.5-14.5); White Blood Cell Count 7.1 10^3/uL (4.8-10.8)
[2024-12-28 12:30] LABS: ALT (SGPT) 29 U/L (0-50); AST (SGOT) 22 U/L (17-59); Albumin 3.3 g/dl (3.5-5.0); Alkaline Phosphatase 123 U/L (38-126); Blood Urea Nitrogen 25 mg/dl (9-20); Calcium 9.1 mg/dl (8.4-10.2); Carbon Dioxide 28 mmol/L (22-30); Chloride 100 mmol/L (98-107); Estimated Creatinine Clearance 85 ml/min; Glucose 212 mg/dl (70-99); Potassium 4.6 mmol/L (3.5-5.1); Sodium 135 mmol/L (135-145); Total Bilirubin 0.5 mg/dl (0.2-1.3); Total Protein 6.6 g/dl (6.3-8.2); eGFR > 60.00
[2024-12-28 12:41] LABS: Urine Albumin 3+ (Neg - Trace); Urine Bilirubin Negative (Negative); Urine Character Cloudy (Clear); Urine Color Yellow; Urine Glucose 4+ (Negative); Urine Ketone Negative (Negative); Urine Leukocyte 3+ (Negative); Urine Nitrite Positive (Negative); Urine Occult Blood 4+ (Negative); Urine Specific Gravity 1.015 (<1.030); Urine Urobilinogen Negative (Neg - 1+)
[2024-12-28] MEDS: MAXIPIME 2000 MG IV (13:39)
[2024-12-28 13:46] VITALS: BP 101/64
[2024-12-28 13:56] LABS: Urine White Cell >100 /HPF (0-5)
== END 2024-12-28 13:47 | disposition home or self-care (01) ==
LOC: EMR 10:47
PROVIDERS: Emergency Medicine; Physician Assistant Medical; EMERGENCY PHYSICIAN Student in an Organized Health Care Education/Training Program; FAMILY PHYSICIAN Family Medicine
DX: N39.0 Urinary tract infection, site not specified (principal); J44.9 Chronic obstructive pulmonary disease, unspecified; I48.91 Unspecified atrial fibrillation; I25.10 Atherosclerotic heart disease of native coronary artery without angina pectoris; E78.00 Pure hypercholesterolemia, unspecified; I10 Essential (primary) hypertension; E11.51 Type 2 diabetes mellitus with diabetic peripheral angiopathy without gangrene; Z79.4 Long term (current) use of insulin; Z87.440 Personal history of urinary (tract) infections; Z87.891 Personal history of nicotine dependence
CPT/HCPCS: 99283; 96374; 80053; 81003; 81015; 85025; 87077; 87086; 87186; 93005

== ENCOUNTER 2025-02-04 14:42 | Inpatient (IN) | payer MEDICARE, OTHER, SELFPAY ==
[2025-02-04] VITALS (12 sets, daily range): BP systolic 89–120; BP diastolic 41–109; BMI 41.9
[2025-02-04 10:02] LABS: Glucose - Point of Care 170 mg/dl (70-99)
[2025-02-04 10:45] LABS: ALT (SGPT) 24 U/L (0-50); AST (SGOT) 24 U/L (17-59); Albumin 3.8 g/dl (3.5-5.0); Alkaline Phosphatase 158 U/L (38-126); Blood Urea Nitrogen 32 mg/dl (9-20); Carbon Dioxide 29 mmol/L (22-30); Chloride 102 mmol/L (98-107); Estimated Creatinine Clearance 56 ml/min; Glucose 177 mg/dl (70-99); NT-proBNP 1150 pg/ml; Potassium 4.8 mmol/L (3.5-5.1); Sodium 139 mmol/L (135-145); Total Protein 7.2 g/dl (6.3-8.2); Troponin I < 0.012 ng/ml; eGFR 43.29
[2025-02-04 10:49] LABS: % Basophils 0.2 % (0-2); % Immature Granulocytes 0.6 % (0-0.5); % Lymphocytes 14.1 % (20.5-51.1); % Monocytes 14.3 % (1.7-9.3); % Neutrophils 70.8 % (42.2-75.2); Absolute Immature Granulocytes 0.1 10^3/uL (0-0.05); Absolute Lymphocytes 2.1 10^3/uL (1.2-3.4); Absolute Monocytes 2.2 10^3/uL (0.1-0.6); Absolute Neutrophils 10.7 10^3/uL (1.4-6.5); Hematocrit 35.1 % (39.0-52.0); Hemoglobin 10.9 g/dL (13.0-18.0); Mean Corp Hgb Conc. 31.1 g/dL (33.0-37.0); Mean Corpuscular Hgb 30.1 pg (27.0-31.0); Mean Platelet Volume 10.9 fL (7.4-10.4); Nucleated Red Blood Cells % 0 % (-); Platelet Count 301 10^3/uL (130-400); Red Blood Cell Count 3.62 10^6/uL (4.70-6.10); Red Cell Dist. Width 18.6 % (11.5-14.5); White Blood Cell Count 15.1 10^3/uL (4.8-10.8)
[2025-02-04 10:54] LABS: INR 1.72; PT 20.3 Sec (11.4-14.6)
[2025-02-04 10:55] LABS: APTT 37.2 Sec (23.4-35.0)
--- NOTE | 2025-02-04 11:24 | ED.GENMED ---
History of Present Illness
General
Chief Complaint: Chest Pain
Source: patient
Time Seen by Provider: 02/04/25 09:50
History of Present Illness
History of Present Illness:
Note:
CHIEF COMPLAINT(S)
Chest pain.
HISTORY OF PRESENT ILLNESS
The patient is an 79-year-old male with a history of atrial fibrillation and post-stent placement, presenting with chest pain that began yesterday afternoon. The patient was returning from [facility] when the symptoms started. He describes
the pain in the middle of his chest and rates it as different from anything he has experienced before. He attempted to relieve the pain with nitroglycerin, but this did not alleviate his symptoms. The patient reports having a stent placed about 15
years ago and has a history of atrial fibrillation treated with medication. He denies smoking but was exposed to secondhand smoke as a child from his parents. The patient occasionally suffers from arthritis and mentions a recent episode of
forgetting his insulin dose..
CHRONIC MEDICAL CONDITIONS SIGNIFICANTLY AFFECTING CARE
- Atrial fibrillation
- Hypertension
- Diabetes mellitus
- History of coronary artery disease with prior stent placement
MEDICATIONS
- Methotrexate
- Gabapentin
- Prednisone
- Vitamin D 1000 IU
- Insulin
- Tramadol
- Nortriptyline
- Cymbalta
- Finasteride
- Flumax
- Nexium
- Methenamine
- Aspirin
- Xarelto
PHYSICAL EXAM
- General: Patient appears sleepy with elevated Body Mass Index.
- Cardiovascular: S1, S2 present with irregular rhythm, normal rate; notable for right bundle branch block on Electrocardiogram.
- Respiratory: Lungs clear bilaterally.
- Neurological: Alert and oriented to person but disoriented to time and place.
- Abdomen: Soft, non-tender.
- Vascular: Palpable pulses in bilateral femoral areas.
PROBLEM LIST
Acute:
- Chest pain
- Disorientation
Chronic:
- Atrial fibrillation
- Hypertension
- Diabetes mellitus
- History of coronary artery disease
PLAN
- Obtain a portable chest X-ray.
- Obtain BNP, troponin levels, Complete Blood Count, and Comprehensive Metabolic Panel.
- Plan to admit the patient for further evaluation.
- Consult with Dr. Vergara team regarding current condition and management.
DIFFERENTIAL DIAGNOSIS
The Differential Diagnosis includes, in no particular order and is not limited to:
1. Acute coronary syndrome
2. Pulmonary embolism
3. Aortic dissection
4. Pericarditis
5. Gastroesophageal reflux disease
6. Costochondritis
7. Heart failure exacerbation
8. Pneumothorax
9. Anxiety-related chest pain
10. Pneumonia
CARE-UPDATE
02/04/25 - 11:12
The x-ray reveals bilateral pneumonia, prompting initiation of cefepime due to past tolerance of cephalosporins. Patient exhibited hypoxia at 87%, which improved with 3L nasal cannula. Vancomycin addition is likely. Admission to hospitalist service
planned for ongoing management. Negative for ACS.
Disposition:
DIAGNOSIS
- Lobar pneumonia, hospital-associated (ICD-10: J18.9)
SUMMARY OF ENCOUNTER
The 79-year-old male with a history of atrial fibrillation and post-stent placement presented to the emergency department with chest pain that was not relieved by nitroglycerin. Imaging confirmed lobar pneumonia, and the patient was hypoxic upon
presentation with improvement noted on oxygen therapy. A portable chest X-ray was pivotal in establishing the diagnosis of pneumonia, rather than an acute coronary syndrome, as the troponin levels were negative. The patients current medications,
such as those for managing atrial fibrillation and coronary artery disease, along with his new antibiotic regimen for pneumonia, were taken into consideration during this encounter.
DISPOSITION
Admit to hospice in-room for ongoing management.
CONSIDERATION FOR ADMISSION
The patient was considered for admission due to pneumonia and the requirement for antibiotics and oxygen therapy management.
ASSESSMENT
Pneumonia was identified as the major contributor to the patients symptoms, with hypoxia corrected by supplemental oxygen. There was no evidence of acute coronary syndrome.
PLAN
- Initiate treatment will be cephalosporin, likely cefepime after d/w ID pharmacist
- Consider adding vancomycin due to the likelihood of healthcare-associated pneumonia.
- Admit to hospitalist service for comprehensive management of pneumonia and monitoring of potential complications
INDEPENDENT INTERPRETATION OF TESTS
- My independent interpretation of chest X-ray reveals lobar pneumonia.
MEDICATION RECONCILIATION
-
- Oxygen therapy administered to manage hypoxia.
MEDICAL DECISION MAKING
Number and Complexity of Problems Addressed: Active management of a hospital-associated pneumonia with consideration of chronic conditions such as atrial fibrillation and previous coronary artery disease.
Data: Tests and imaging considered were aimed to differentiate between acute coronary syndrome and pneumonia, leading to the pneumonia diagnosis.
Risk: Admission due to healthcare-associated pneumonia, appropriate antibiotic therapy initiation, and oxygen support for hypoxia.
Past History
Past History
ED Past Medical History: Arrthythmia, CAD, COPD, HTN, Hypercholesterolemia, IDDM and Other
ED Past Surgical History: Cardiac, Orthopedic and Other
Social History
Tobacco: Former smoker
Alcohol: None
Drug: None
Personal:
Living: with family
Employment: Not employed
Phy Exam
Physical Exam
Physical Exam:
.
Scores
Heart Score for Chest Pain Patients
STEMI patient?: No
History: Moderately Suspicious
ECG: Nonspecific Repolarization
Age: >/= 65 years
Risk Factors: >/= 3 Risk Factors or History of CAD
Troponin: </= Normal Limit
Heart Score for Chest Pain Patients: 6
Heart Score Risk: 20.3% MACE over next 6 weeks
Course
Orders/Labs/Results
Orders:
Orders
02/04/25 09:53
Electrocardiogram (*1) Urgent
Reason for Study: Chest Pain
Cardiac Monitoring- Treatment ONCE
EKG- Treatment ONCE
IV Insert/Care/Rem.- Treatment PRN
O2 Therapy [RESP] Urgent
Titrate/Wean O2 to maintain O2 sat greater than (%): 90
Special Instructions: Maintain sats >/=90%
Pulse Ox/spot Check [RESP] Urgent
Quantity: 1
Special Instructions: ON ROOM AIR
02/04/25 10:00
Complete Blood Count/With Diff Urgent
Comprehensive Metabolic Panel Urgent
NT-proBNP Urgent
Troponin I Urgent
02/04/25 10:01
CR Chest Portable - 1 View Urgent
Comment:
Reason For Exam: chest pain
Reason Study Needs to be Portable: Patient Unstable
02/04/25 10:35
PTT Urgent
Prothrombin Time Urgent
02/04/25 11:17
Lactic Acid Q4H
Comment: CANCEL 2nd LACTIC ACID IF 1st LACTIC ACID IS LESS THAN 2
Blood Culture Q30M
VISHAL Source: Blood/Venous
Specimen Description:
02/04/25 11:30
Blood Culture Q30M
VISHAL Source: Blood/Venous
Specimen Description:
02/04/25 15:00
Lactic Acid Q4H
Comment: CANCEL 2nd LACTIC ACID IF 1st LACTIC ACID IS LESS THAN 2
Abnormal Lab Results
02/04/25 02/04/25 02/04/25
10:00 10:01 10:35
WBC 15.1 H 10^3/uL
(4.8-10.8)
RBC 3.62 L 10^6/uL
(4.70-6.10)
Hgb 10.9 L g/dL
(13.0-18.0)
Hct 35.1 L %
(39.0-52.0)
MCV 97.0 H fL
(80.0-94.0)
MCHC 31.1 L g/dL
(33.0-37.0)
RDW 18.6 H %
(11.5-14.5)
MPV 10.9 H fL
(7.4-10.4)
Abs Immat Gran (auto) 0.1 H 10^3/uL
(0-0.05)
Absolute Neuts (auto) 10.7 H 10^3/uL
(1.4-6.5)
Absolute Monos (auto) 2.2 H 10^3/uL
(0.1-0.6)
Immature Gran % 0.6 H %
(0-0.5)
Lymphocytes % 14.1 L %
(20.5-51.1)
Monocytes % 14.3 H %
(1.7-9.3)
PT 20.3 H Sec
(11.4-14.6)
APTT 37.2 H Sec
(23.4-35.0)
BUN 32 H mg/dl
(9-20)
Creatinine 1.6 H mg/dL
(0.7-1.3)
Glucose 177 H mg/dl
(70-99)
Alkaline Phosphatase 158 H U/L
(38-126)
POC Glucose 170 H mg/dl
(70-99)
02/04/25 10:00
02/04/25 10:00
Vital Signs
Initial and Last Documented VS:
Initial Vital Signs
Temp BP
99.3 F
02/04/25 09:55 02/04/25 09:55
Last Documented Vital Signs
Temp Pulse Resp BP Pulse Ox
99.3 F 93 25 92
02/04/25 09:55 02/04/25 09:56 02/04/25 09:56 02/04/25 09:56 02/04/25 09:56
*EKG
Interpreted by ED Provider?: Yes
EKG Intrepretation Date: 02/04/25
EKG Intrepretation Time: 09:57
Interpretation: abnormal
Comparison EKG: no comparison EKG present
Heart Rate: 88
Rate: normal
Rhythm: a-fib
[place]: normal axis
Interval: normal interval
QRS Pattern: normal QRS
Ischemia: non-specific ST changes
*Sex Therapist Interpretation
Rate: normal
Interpretation: abnormal
Heart Rate: 88
Rhythm: a-fib
*Critical Care Note
Total Time (30-74mins, 75-104mins- exclusive of procedures): Not Applicable
ED Attending Note
-
Portions of this chart may have been created with voice recognition software.� Occasional wrong word or��sound alike� substitutions may have occurred due to the inherent limitations of voice recognition software.
Discharge Plan
Departure
Patient Disposition: Admit
Date of Disposition: 02/04/25
Time of Disposition: 11:42
Admit to: Telemetry
Presentation/result/management discussed w/ accepting MD/DO: Hospitalist
Patient with high blood pressure during this ER visit?: No
Condition: Fair
Discharge Problem:
Pneumonia, Atrial fibrillation, Hypoxia
Prescriptions:
No Action
prednisone 5 MG tablet
5 mg PO DAILY
tamsulosin 0.4 MG capsule
0.4 mg PO HS
atorvastatin [Lipitor] 40 MG tablet
40 mg PO HS
allopurinol 100 MG tablet
100 mg PO QPM
finasteride 5 MG tablet
5 mg PO DAILY
omega-3 acid ethyl esters [Lovaza] 1 GM capsule
1 gm PO TID
leucovorin calcium 10 mg Tablet
10 mg PO DIRECTED
Rx Instructions:
take 12 hour the day you take methotrexate injection
nortriptyline 50 mg Capsule
50 mg PO BID
duloxetine 60 mg Capsule,Delayed Release(Dr/Ec)
60 mg PO HS
bumetanide 1 mg Tablet
1 mg PO Q48H
therapeutic multivitamin Tablet
1 tab PO HS
methotrexate sodium 25 mg/mL Solution
25 mg SC SA
ascorbic acid (vitamin C) [Vitamin C] 500 mg Tablet
500 mg PO QPM
Xarelto 20 MG tablet
20 mg PO QPM
Visbiome 112.5 billion cell Capsule
1 cap PO BID
metformin 500 mg Tablet
500 mg PO QID
fluticasone propion-salmeterol [Advair Diskus] 250-50 mcg/dose Blister With Device
1 inh INHALATION R DAILY
tramadol 50 mg Tablet
50 mg PO TID
methenamine hippurate [Hiprex] 1 gram Tablet
1 g PO BID
ergocalciferol (vitamin D2) 1,250 mcg (50,000 unit) Capsule
1,250 mcg PO TH
esomeprazole magnesium [Nexium] 20 mg Capsule,Delayed Release(Dr/Ec)
20 mg PO DAILY
insulin lispro [Humalog KwikPen Insulin] 100 unit/mL Insulin Pen
28 unit SC DAILY
metoprolol succinate 50 mg tablet extended release 24 hr
25 mg PO DAILY
Rx Instructions:
hold for SBP<100 or HR<60
gabapentin [Neurontin] 800 MG tablet
800 mg PO QID
aspirin 81 mg Tablet,Delayed Release (Dr/Ec)
81 mg PO HS
lisinopril 10 mg Tablet
10 mg PO DAILY
insulin lispro [Humalog KwikPen Insulin] 100 unit/mL Insulin Pen
20 unit SC DAILY@1200
insulin lispro [Humalog KwikPen Insulin] 100 unit/mL Insulin Pen
44 unit SC QPM
insulin glargine [Lantus Solostar U-100 Insulin] 100 unit/mL (3 mL) Insulin Pen
60 unit SC HS
Referrals:
Willie Robbins MD [Family Provider, [facility]]
Discharge Date and Time
Print Language: [id number]
[2025-02-04 11:35] LABS: Lactic Acid 1.3 mmol/L (0.7-2.0)
[2025-02-04] MEDS: MAXIPIME 2000 MG IV ×2 (12:05→23:53)
--- NOTE | 2025-02-04 12:08 | HPS.HSE ---
Addendum entered and electronically signed by Mateo Caputo MD 02/04/25 14:57:
I personally performed a history and physical exam of the patient and discussed management with the resident. I reviewed the resident's note and agree with the documented findings and plan of care HPI/CC.
Patient is a 79-year-old male with history of chronic respiratory failure, chronic systolic congestive heart failure, history of influenza/strep pyogenes pneumonia requiring ventilatory support earlier this year, permanent A-fib on Xarelto, history
of DCCV, asthma, JOHNNIE on CPAP, CAD with history of PCI, rheumatoid arthritis on methotrexate, type 2 diabetes, diabetic neuropathy, BPH came to ER for having new onset of chest pain. Patient was in [facility] for routine outpatient lab work
yesterday, on the way back patient started to having substernal chest pressure/burning pain. No radiation, constant in nature. Patient has some shortness of breath and epigastric tenderness no nausea/vomiting. Patient does report episodes of
regurgitation where food gets stuck in the chest with last episode 4 weeks back. Have history of Schatzki's ring apparently which was dilated many years ago. Patient is compliant with home medication. No diaphoresis/feeling cold clammy.
Patient denies any associated palpitation/dizziness/productive cough/abdominal pain/change in bowel or bladder habit or fever.
HEENT: No pallor, cyanosis, or jaundice. Throat clear.
NECK: Supple. No JVD.
RESPIRATORY: Lungs clear to auscultation. o2 NC 3L
CVS: S1, S2 normal. RRR. No murmur, rub or gallop.
ABDOMEN: Soft, non-tender. No distension. BS+/normal.
EXTREMITIES: Bilateral edema. Changes of chronic venous stasis.
CUT OFF SAW OPERATOR METAL: AOx3. No focal deficits.
1. Chest pain episode -rule out ACS the potential difference of reflux disease-patient with history of Schatzki's ring/dysphagia where food gets stuck in the chest. Initial troponin negative and EKG did not show any ST segment elevation.
Follow-up troponin for next 24 hours. Start patient on IV PPI twice daily. Esophagogram to rule out any structural issues.
2. Community-acquired pneumonia -chest x-ray questioning of bilateral pneumonia. Have some leukocytosis afebrile no cough production. Patient mainly presented for chest pain and not pulmonary symptoms. Maintained on empiric IV cefepime for time
being. Culture has been collected
2. Chronic systolic congestive heart failure -patient have ongoing weight gain of 15 pound plus, compliant to medication. Oxygen requirement stable. Patient have new DEONDRE and will hold diuretics, will monitor for any signs of exacerbation
3. DEONDRE -stop lisinopril/metformin. Hold Bumex for time being. Bladder scan/straight catheterization protocol for any signs of retention. Recheck renal function in evening if worsening will require nephrology input.
4. JOHNNIE on CPAP -continue home dose CPAP
5. Type 2 diabetes -with patient renal dysfunction with decreased insulin dose Lantus to 40 at night with short acting insulin continuous before breakfast and lunch and 30 units before dinner. Will escalate to home dose if blood glucose
uncontrolled. Goal is to avoid hypoglycemia during the hospitalization.
6. Hypotension -provide blood pressure medication with holding parameter. Patient asymptomatic. This is likely due to patient's history of heart failure, no overt concern of ongoing sepsis/septic shock
Total time spent : 79 mins
I personally saw and examined the patient.
I have reviewed all diagnostic interpretations and treatment plans as written.
Time includes patient management by me, time spent at the patients bedside, time to review lab and imaging results, discussing patient care, documentation in the medical record, and time spent with the family or caregiver and discussing care plan
with RN/Consultants.
Original Note:
Family Physician
-
Family Physician: Willie Rojas [facility]
Chief Complaint
-
CP
History of Present Illness
Pt is an 82yoM h HFrEF (EF 25-30%), CAD s/p stents, afib, COPD, HTN, DM presenting to [facility] ED for CP that began yesterday afternoon. Pt returning from [facility] when sx started, unrelieved by nitroglycerin. The pain is located in the
middle of his chest and is unlike any pain he has experienced before. Hx of severe UTIs, fell in July due to one and broke both knees requiring b/l TKR. ECG pos for afib w RBBB. CXR concerning for pneumonia vs atelectasis.
Medical History
Past Medical History
Past Medical History: Reports Arrhythmia, CAD, CHF, COPD, HTN and IDDM
Past Surgical History: Reports Cardiac, Cholecystectomy and Orthopedic
Social History
Tobacco: Non-smoker
Alcohol: None
Drug: None
Personal:
Living: With Family
Employment: Retired
Family History
Family History: CAD and Cancer
Allergies / Home Medications
Allergies reflects when Allergies were last updated in [facility].
Home Medications with original date entered in [facility]
Allergy/Medication List:
Allergies
Allergy/AdvReac Type Severity Reaction Status Date / Time
anakinra Allergy Unknown Unknown Verified 10/30/24 23:45
levofloxacin (From Levaquin) Allergy Unknown Unknown Verified 10/30/24 23:45
alprazolam (From Xanax) Allergy [facility], SOB Verified 10/30/24 23:45
amoxicillin (From Augmentin) Allergy Unknown Verified 10/30/24 23:45
celecoxib (From Celebrex) Allergy [facility], SOB Verified 10/30/24 23:45
cisapride (From Propulsid) Allergy Unknown Verified 10/30/24 23:45
clarithromycin (From Biaxin) Allergy SOB, hives Verified 10/30/24 23:45
clavulanic acid (From Allergy Unknown Verified 10/30/24 23:45
Augmentin)
clindamycin HCl (From Allergy Hives, SOB Verified 10/30/24 23:45
Cleocin)
codeine Allergy Unknown Verified 10/30/24 23:45
famotidine (From Pepcid) Allergy [facility] SOB Verified 10/30/24 23:45
hydrocodone (From Vicodin) Allergy Unknown Verified 10/30/24 23:45
hydroxychloroquine sulfate Allergy hives, SOB Verified 10/30/24 23:45
(From Plaquenil)
Iodinated Contrast Media Allergy Hives Verified 10/30/24 23:45
Penicillins Allergy Hives Verified 10/30/24 23:45
Sulfa (Sulfonamide Allergy Unknown Verified 10/30/24 23:45
Antibiotics)
Home Medications
prednisone 5 mg tablet 5 mg PO DAILY RA 12/23/14
tamsulosin 0.4 mg capsule 0.4 mg PO HS Urinary Issue 12/23/14
allopurinol 100 mg tablet 100 mg PO QPM Gout 07/01/19
atorvastatin 40 mg tablet (Lipitor) 40 mg PO HS High Cholesterol 07/01/19
finasteride 5 mg tablet 5 mg PO DAILY Urinary Issue 07/22/19
omega-3 acid ethyl esters 1 gram capsule (Lovaza) 1 gm PO TID High Cholesterol 07/22/19
leucovorin calcium 10 mg tablet 10 mg PO DIRECTED rheumatoid arthritis 04/17/23
bumetanide 1 mg tablet 1 mg PO Q48H Fluid Retention/Swelling 06/05/24
duloxetine 60 mg capsule,delayed release 60 mg PO HS Depression 06/05/24
nortriptyline 50 mg capsule 50 mg PO BID Depression 06/05/24
ascorbic acid (vitamin C) 500 mg tablet (Vitamin C) 500 mg PO QPM Supplement 09/10/24
methotrexate sodium 25 mg/mL injection solution 25 mg SC SA RA 09/10/24
rivaroxaban 20 mg tablet (Xarelto) 20 mg PO QPM Blood Clot Prevention/Tx 09/10/24
therapeutic multivitamin 1 tab PO HS Supplement 09/10/24
Lactobac no.2-Bifidobac no.1-S. thermo 112.5 billion cell capsule (Visbiome) 1 cap PO BID Supplement 11/04/24
aspirin 81 mg tablet,delayed release 81 mg PO HS Heart Disease/Condition 02/04/25
ergocalciferol (vitamin D2) 1,250 mcg (50,000 unit) capsule 1,250 mcg PO TH Supplement 02/04/25
esomeprazole magnesium 20 mg capsule,delayed release (Nexium) 20 mg PO DAILY Gastrointestinal Issue 02/04/25
fluticasone 250 mcg-salmeterol 50 mcg/dose blistr powdr for inhalation (Advair Diskus) 1 inh inhalation R DAILY Lung/Breathing Issues 02/04/25
gabapentin 800 mg tablet (Neurontin) 800 mg PO QID Neurological Condition 02/04/25
insulin glargine 100 unit/mL (3 mL) subcutaneous pen (Lantus Solostar U-100 Insulin) 60 unit SC HS Diabetes 02/04/25
insulin lispro 100 unit/mL subcutaneous pen (Humalog KwikPen (U-100) Insulin) 20 unit SC DAILY@1200 Diabetes 02/04/25
insulin lispro 100 unit/mL subcutaneous pen (Humalog KwikPen (U-100) Insulin) 28 unit SC DAILY Diabetes 02/04/25
insulin lispro 100 unit/mL subcutaneous pen (Humalog KwikPen (U-100) Insulin) 44 unit SC QPM Diabetes 02/04/25
lisinopril 10 mg tablet 10 mg PO DAILY Blood Pressure 02/04/25
metformin 500 mg tablet 500 mg PO QID Diabetes 02/04/25
methenamine hippurate 1 gram tablet 1 g PO BID Infection 02/04/25
metoprolol succinate 50 mg tablet,extended release 24 hr 25 mg PO DAILY Blood Pressure 02/04/25
tramadol 50 mg tablet 50 mg PO TID Pain 02/04/25
Review of Systems
-
History Source: Patient
Constitutional: Reports No Symptoms
EENT: Reports No Symptoms
Respiratory: Reports Trouble Breathing
Cardiac: Reports Chest Pain
Abdomen/GI: Reports No Symptoms
: Reports No Symptoms
Musculoskeletal: Reports No Symptoms
Skin: Reports No Symptoms
Neurological: Reports Dizzy
Endocrine: Reports No Symptoms
Hematologic/Lymphatic: Reports No Symptoms
Psych: Reports No Symptoms
Physical Exam
Vital Signs
Vital Signs
Temp Pulse Resp BP Pulse Ox
99.3 F 93 25 90/68 92
02/04/25 09:55 02/04/25 09:56 02/04/25 09:56 02/04/25 09:56 02/04/25 09:56
Physical Exam
General: Well Developed, Well Nourished, Conversant, Respiratory Distress and Morbidly Obese
HEENT: NormoCephalic, Atraumatic and Oxygen (1.5 L O2 via NC)
Respiratory: Wheezes and Accessory Resp Muscle Use
Cardiac: S1/S2 and Irregular Rhythm
GI: Soft, Non Distended, Normal Bowel Sounds and Tender (epigastric)
Genito-urinary: Clear Urine
Musculoskeletal: No Clubbing, No Cyanosis and No Edema
Skin: Warm, Dry, Lesions and IV/Catheter Site
Neuro: Awake, Alert and Oriented
Psych: Calm
Laboratory Results
-
02/04/25 10:00
02/04/25 10:00
Laboratory Results
PT 20.3 Sec (11.4-14.6) H 02/04/25 10:35
INR 1.72 02/04/25 10:35
APTT 37.2 Sec (23.4-35.0) H 02/04/25 10:35
Lactic Acid 1.3 mmol/L (0.7-2.0) 02/04/25 11:17
Total Bilirubin 1.0 mg/dl (0.2-1.3) 02/04/25 10:00
AST 24 U/L (17-59) 02/04/25 10:00
ALT 24 U/L (0-50) 02/04/25 10:00
Alkaline Phosphatase 158 U/L (38-126) H 02/04/25 10:00
Troponin I < 0.012 ng/ml 02/04/25 10:00
Impression/Plan
-
IMPRESSION:
PLAN:
Sepsis secondary to presumed pneumonia
- SIRS: tachycardia, tachypnea, leukocytosis
- ECG: afib w RBBB
- CXR: pneumonia vs atelectasis
- bcx, sputum cx
- supplemental O2
- cefepime
Chest pain
- lipase 30
- trend troponins
- cardiology consult if troponins rise
DEONDRE
- Cr peak 1.6, baseline 1.0
- hold nephrotoxic agents
- repeat BMP @1800
- nephro consult if Cr rises
Hypotension
- asymptomatic
- monitor
Hx UTI
- u/a
HFrEF (EF 25-30%)
HTN
- echo 11/05/24: LVEF 25-30%, IVC dilated
- daily weights, I/O's
- reported dry weight 309 lbs
- keep K>4, Mg>2
- cont home metoprolol succinate
- hold lisinopril
Afib
- cont home xarelto, metoprolol
CAD s/p stent
HLD
- cont home ASA, atorvastatin
IDDM
- home insulin: lantus 60u HS. Lispro 28u breakfast, 20u lunch, 44u dinner.
- 40u lantus HS. Aspart 20u breakfast, 20u lunch, 30u dinner + SSI
- hold metformin
Rheumatoid arthritis
- hold leucovorin, methotrexate
- cont prednisone
Hx of traumatic knee fx s/p TKR
- brace for L knee
Depression
- cont home duloxetine, nortriptyline
Neuropathy
- cont gabapentin
GERD
- cont ppi
BPH
- cont finasteride, tamsulosin
- bladder scan/straight cath
Gout
- cont allopurinol
Diet: 2g sodium
DVT ppx: xarelto
Code status: FULL CODE
[2025-02-04 13:27] LABS: Lipase 30 U/L (23-300)
[2025-02-04 13:30] LABS: Urine Albumin 3+ (Neg - Trace); Urine Bilirubin Negative (Negative); Urine Character Clear (Clear); Urine Color Yellow; Urine Glucose Negative (Negative); Urine Ketone Negative (Negative); Urine Leukocyte 3+ (Negative); Urine Nitrite Negative (Negative); Urine Occult Blood 2+ (Negative); Urine Urobilinogen Negative (Neg - 1+)
[2025-02-04 13:42] LABS: Urine Squamous Cell 16-20 /LPF (Few)
[2025-02-04 13:43] LABS: Urine Bacteria Few (Negative); Urine Red Blood Cell 0-2 /HPF (0-2)
[2025-02-04 17:39] LABS: Troponin I 0.013 ng/ml
[2025-02-04] MEDS: NEURONTIN 600 MG PO ×2 (17:52→21:50)
[2025-02-04] MEDS: VITAMIN C 500 MG PO (17:53)
[2025-02-04] MEDS: ULTRAM 50 MG PO ×2 (17:53→21:50)
[2025-02-04] MEDS: XARELTO 20 MG PO (17:53)
[2025-02-04] MEDS: ZYLOPRIM 100 MG PO (17:53)
[2025-02-04] MEDS: NOVOLOG FLEXPEN-LOW RESISTANCE SC (18:01)
[2025-02-04 18:02] LABS: Glucose - Point of Care 132 mg/dl (70-99)
[2025-02-04] MEDS: NITROSTAT (SUBLINGUAL) 0.4 MG SL (18:05)
[2025-02-04 18:50] LABS: Blood Urea Nitrogen 37 mg/dl (9-20); Calcium 8.6 mg/dl (8.4-10.2); Carbon Dioxide 28 mmol/L (22-30); Chloride 101 mmol/L (98-107); Estimated Creatinine Clearance 60 ml/min; Glucose 166 mg/dl (70-99); Potassium 4.5 mmol/L (3.5-5.1); Sodium 138 mmol/L (135-145); eGFR 46.77
--- NOTE | 2025-02-04 19:24 | PTCARENOTE ---
Pt admitted in to room 432. AAOx3. Able to make needs known. Telemetry monitoring continued. VSS. On 2L. Patient continues to reports middle chest pain 8/10 heavy, dull, that makes it difficult to take a deep breath. MD notified. Patient passed
swallow eval, able to take meds with sips of water. Patient also given x1 of SL nitro without result, patient refusing any more doses of nitro, MD aware. EKG preformed, cardiology consult placed.
--- NOTE | 2025-02-04 19:45 | PTCARENOTE ---
Daughter Tiny called and updated.
[2025-02-04] MEDS: PAMELOR 50 MG PO (20:14)
[2025-02-04] MEDS: VISBIOME 1 CAP PO (20:15)
[2025-02-04] MEDS: PROTONIX IV 40 MG IV (20:15)
[2025-02-04] MEDS: NSS (PRESERVATIVE FREE) 10 ML IV (20:15)
[2025-02-04] MEDS: ADVAIR HFA 115/21 MCG INHALER 2 PUFF INH (20:44)
[2025-02-04] MEDS: CYMBALTA DELAYED RELEASE 60 MG PO (21:50)
[2025-02-04] MEDS: ASPIR LOW (ENTERIC COATED) 81 MG PO (21:50)
[2025-02-04] MEDS: THERAGRAN 1 TABLET PO (21:50)
[2025-02-04] MEDS: FLOMAX 0.4 MG PO (21:51)
[2025-02-04] MEDS: LIPITOR 40 MG PO (21:51)
[2025-02-04] MEDS: LANTUS 0.4 UNITS SC (21:52)
[2025-02-04 23:05] LABS: Troponin I 0.018 ng/ml
[2025-02-04] MEDS: STERILE WATER FOR INJECTION 10 ML IV (23:53)
[2025-02-04 23:58] LABS: Glucose - Point of Care 162 mg/dl (70-99)
[2025-02-05] VITALS (8 sets, daily range): BP systolic 91–134; BP diastolic 54–81; PULSE 97–99; O2SAT 95–96; BMI 40.0
[2025-02-05 06:09] LABS: Glucose - Point of Care 183 mg/dl (70-99)
[2025-02-05 07:26] LABS: Hematocrit 32.5 % (39.0-52.0); Hemoglobin 10.2 g/dL (13.0-18.0); Mean Corp Hgb Conc. 31.4 g/dL (33.0-37.0); Mean Corpuscular Hgb 30.2 pg (27.0-31.0); Mean Corpuscular Volume 96.2 fL (80.0-94.0); Mean Platelet Volume 10.9 fL (7.4-10.4); Platelet Count 236 10^3/uL (130-400); Red Blood Cell Count 3.38 10^6/uL (4.70-6.10); Red Cell Dist. Width 18.5 % (11.5-14.5); White Blood Cell Count 11.6 10^3/uL (4.8-10.8)
[2025-02-05] MEDS: NOVOLOG FLEXPEN-LOW RESISTANCE 1 UNITS SC (07:38)
[2025-02-05] MEDS: NEURONTIN 600 MG PO ×3 (07:39→22:42)
[2025-02-05] MEDS: PROTONIX IV 40 MG IV ×2 (07:39→20:06)
[2025-02-05] MEDS: NSS (PRESERVATIVE FREE) 10 ML IV ×2 (07:39→20:06)
[2025-02-05] MEDS: PAMELOR 50 MG PO ×2 (07:39→20:06)
[2025-02-05] MEDS: PROSCAR 5 MG PO (07:40)
[2025-02-05] MEDS: VISBIOME 1 CAP PO ×2 (07:40→20:06)
[2025-02-05] MEDS: TOPROL XL 25 MG PO (07:40)
[2025-02-05] MEDS: ULTRAM 50 MG PO ×3 (07:40→22:43)
[2025-02-05] MEDS: DELTASONE 5 MG PO (07:40)
--- NOTE | 2025-02-05 07:48 | W.PN.HOSP.TC ---
Today's Communication/Plan
-
- echo
Assessment / Plan
Assessment / Plan
IMPRESSION:
82yoM [facility] HFrEF (EF 25-30%), CAD s/p stents, afib, COPD, HTN, DM presenting to [facility] ED for CP that began yesterday afternoon. Pt returning from [facility] when sx started, unrelieved by nitroglycerin. The pain is located in the middle of his
chest and is unlike any pain he has experienced before. Hx of severe UTIs, fell in July due to one and broke both knees requiring b/l TKR. ECG pos for afib w RBBB. CXR concerning for pneumonia vs atelectasis.
PLAN:
Sepsis secondary to presumed pneumonia
- SIRS: tachycardia, tachypnea, leukocytosis
- ECG: afib w RBBB
- CXR: pneumonia vs atelectasis
- bcx, sputum cx
- supplemental O2
- cefepime
Chest pain
- lipase 30
- trend troponins
- echo
- esophagram
- cardiology consult
DEONDRE
- Cr peak 1.6, baseline 1.0, trending downwards
- hold nephrotoxic agents
- nephro consult if Cr rises
Hypotension
- asymptomatic
- monitor
Hx UTI
- u/a
HFrEF (EF 25-30%)
HTN
- echo 11/05/24: LVEF 25-30%, IVC dilated
- daily weights, I/O's
- reported dry weight 309 lbs
- keep K>4, Mg>2
- cont home metoprolol succinate
- hold lisinopril
Afib
- cont home xarelto, metoprolol
CAD s/p stent
HLD
- cont home ASA, atorvastatin
IDDM
- home insulin: lantus 60u HS. Lispro 28u breakfast, 20u lunch, 44u dinner.
- 40u lantus HS. Aspart 20u breakfast, 20u lunch, 30u dinner + SSI
- hold metformin
Rheumatoid arthritis
- hold leucovorin, methotrexate
- cont prednisone
Hx of traumatic knee fx s/p TKR
- brace for L knee
Depression
- cont home duloxetine, nortriptyline
Neuropathy
- cont gabapentin
GERD
- cont ppi
BPH
- cont finasteride, tamsulosin
- bladder scan/straight cath
Gout
- cont allopurinol
Diet: full liquids
DVT ppx: xarelto
Code status: FULL CODE
Anticipated Discharge: > 48 hours
Subjective/Interval History
-
Date of Service: February 05, 2025
No acute overnight events.
Objective Data
-
Labs:
Laboratory Results
02/05/25
06:51
WBC 11.6 H
Hgb 10.2 L
Hct 32.5 L
Plt Count 236 D
Sodium Pending
Potassium Pending
Chloride Pending
Carbon Dioxide Pending
BUN Pending
Creatinine Pending
Glucose Pending
Calcium Pending
Vital Signs:
Vital Signs
Temp Pulse Resp BP Pulse Ox
97.5 F 96 14 106/69 98
02/05/25 04:09 02/05/25 04:09 02/05/25 04:09 02/05/25 04:09 02/05/25 04:09
I&O
02/04/25 02/05/25 02/06/25
06:59 06:59 06:59
Output Total 350 / 350
Balance -350 / -350
Review of Systems
-
History Source: Patient
Constitutional: Reports No Symptoms
Respiratory: Reports No Symptoms
Cardiac: Reports Chest Pain
Abdomen/GI: Reports Abdominal Pain
Musculoskeletal: Reports Edema
Neuro: Reports No Symptoms
Physical Exam
-
General: Well Developed, Well Nourished and Morbidly Obese
HEENT: Normocephalic, Atraumatic and Oxygen
Respiratory: Clear to Auscultation
Cardiac: S1/S2 and Irregular Rhythm
GI: Soft, Normal Bowel Sounds, Tender and Distended
Musculoskeletal: No Clubbing, No Cyanosis, Edema, Right Lower Extrem and Edema, Left Lower Extrem
Skin: Warm and Dry
Neuro: Awake, Alert and Oriented
Psych: Calm
[2025-02-05 07:52] LABS: Blood Urea Nitrogen 39 mg/dl (9-20); Calcium 8.7 mg/dl (8.4-10.2); Carbon Dioxide 30 mmol/L (22-30); Chloride 102 mmol/L (98-107); Estimated Creatinine Clearance 63 ml/min; Glucose 155 mg/dl (70-99); Magnesium 1.8 mg/dl (1.6-2.3); Potassium 4.2 mmol/L (3.5-5.1); Sodium 139 mmol/L (135-145); eGFR 50.81
--- NOTE | 2025-02-05 08:10 | CON.CAR ---
Addendum entered and electronically signed by Saturnino Angel DO 02/05/25 11:39:
Attestation: I have seen and examined the patient. I can confirm Ms. Porter's findings and I agree with her assessment and plan as documented.
79-year-old male with known coronary artery disease status post remote PCI, morbid obesity, chronic stable angina, rheumatoid arthritis on immunosuppressive therapy and heart failure with reduced ejection fraction, recently admitted in October 2024
with fall off and LVEF in the setting of pneumonia, now readmitted with chest discomfort and shortness of breath. He reports chest discomfort since Monday (02/03/2025) that has been continuous and unrelenting. It is worse with inspiration, but
generally nonpositional and nonexertional. It did not respond to nitroglycerin.
Here in the hospital, his EKG remains nonischemic.
Troponin is negative.
Repeat echocardiogram is pending.
Chest x-ray shows bilateral lower lobe consolidations, suspicious for atelectasis versus pneumonia. He has been started on empiric antibiotics.
Vital signs are stable.
His exam is generally unrevealing except for bilateral lower extremity edema (1+) with bilateral lower extremity erythema, likely consistent with stasis dermatitis.
History and exam is not consistent with acute coronary syndrome. His continuous chest pain with normal troponin levels essentially rules out ischemic disease. I suspect that his symptoms may be due to esophageal spasm versus a pleuritic component,
possibly pulmonary embolism versus pericarditis, though EKG does not show diffuse ST elevation.
He reports that he has recently undergone esophageal x-ray with read currently pending.
Lower extremity duplex was reportedly conducted at [facility].
Given his acute kidney injury, I think it is reasonable to consider VQ scan to rule out pulmonary embolism. I think this is less likely given his chronic use of rivaroxaban.
We will update his echocardiogram.
He will ultimately require repeat cardiac catheterization if his left ventricular function has not improved since October, though this may likely be deferred to an outpatient setting.
Original Note:
Consultation
Consultation Request
Date/Time Consultation Requested: 02/04/25 1840
Date/Time Consultation Performed: 02/05/25 0800
Requesting Provider: Dr. Hawthorne
Performing Provider: Shelley MCCAULEY for Dr. Avalos
Reason for Consultation: chest discomfort
Medical History
-
Chief Complaint: chest discomfort
History of Present Illness:
79 y/o male with persistent AFIB (s/p ablation) on OAC, hypertension, 1st degree AVB/RBBB, obesity, JOHNNIE on CPAP, DM2, CAD with hx PCI LAD ([place]) with chronic, stable angina, RA on immunosuppressive therapy, HFrEF (recently seen in setting of
acute illness 10/2024) who is here for evaluation of chest discomfort, which started Monday around 4 PM while he was in the car. It felt like a pressure across his chest and nitro did not help. It does not feel like his chronic, stable angina
(exertional symptoms). It has been present constantly since then, though feels a bit better here. It is worse with inspiration, palpation, and cough. He has had some coughing, but not productive. Denies fever or chills. He is on O2 by CT. There is
concern for PNA and he is treated with abx. There is also concern for GI source in this patient with hx Schatzki ring. He is on PPI. Trops and EKGs unremarkable. He is in no distress at the time of my assessment.
Past Medical History
Past Medical History: Arrhythmias, CAD, CHF, HTN and Other (as above)
Social History
Tobacco: Non-Smoker
Family History
Family History: Reviewed & Not Pertinent
Allergies / Home Medications
Allergy/AdvReac Type Severity Reaction Status Date / Time
alprazolam (From Xanax) Allergy CHUCHO salas Verified 10/30/24 23:45
amoxicillin (From Augmentin) Allergy Unknown Verified 10/30/24 23:45
anakinra Allergy Unknown Verified 02/04/25 16:26
celecoxib (From Celebrex) Allergy emily SOB Verified 10/30/24 23:45
cisapride (From Propulsid) Allergy Unknown Verified 10/30/24 23:45
clarithromycin (From Biaxin) Allergy SOB, hives Verified 10/30/24 23:45
clavulanic acid (From Allergy Unknown Verified 10/30/24 23:45
Augmentin)
clindamycin HCl (From Allergy Hives, SOB Verified 10/30/24 23:45
Cleocin)
codeine Allergy Unknown Verified 10/30/24 23:45
famotidine (From Pepcid) Allergy hives SOB Verified 10/30/24 23:45
hydrocodone (From Vicodin) Allergy Unknown Verified 10/30/24 23:45
hydroxychloroquine sulfate Allergy hives, SOB Verified 10/30/24 23:45
(From Plaquenil)
Iodinated Contrast Media Allergy Hives Verified 10/30/24 23:45
levofloxacin (From Levaquin) Allergy Unknown Verified 02/04/25 16:26
Penicillins Allergy Hives Verified 10/30/24 23:45
Sulfa (Sulfonamide Allergy Unknown Verified 10/30/24 23:45
Antibiotics)
�Medication �Instructions �Recorded �Confirmed �Type
prednisone 5 mg tablet 5 mg PO DAILY RA 12/23/14 02/04/25 History
tamsulosin 0.4 mg capsule 0.4 mg PO HS Urinary Issue 12/23/14 02/04/25 History
allopurinol 100 mg tablet 100 mg PO QPM Gout 07/01/19 02/04/25 History
atorvastatin 40 mg tablet (Lipitor) 40 mg PO HS High Cholesterol 07/01/19 02/04/25 History
finasteride 5 mg tablet 5 mg PO DAILY Urinary Issue 07/22/19 02/04/25 History
omega-3 acid ethyl esters 1 gram 1 gm PO TID High Cholesterol 07/22/19 02/04/25 History
capsule (Lovaza)
leucovorin calcium 10 mg tablet 10 mg PO DIRECTED rheumatoid 04/17/23 02/04/25 History
arthritis
bumetanide 1 mg tablet 1 mg PO Q48H Fluid 06/05/24 02/04/25 History
Retention/Swelling
duloxetine 60 mg capsule,delayed 60 mg PO HS Depression 06/05/24 02/04/25 History
release
nortriptyline 50 mg capsule 50 mg PO BID Depression 06/05/24 02/04/25 History
ascorbic acid (vitamin C) 500 mg 500 mg PO QPM Supplement 09/10/24 02/04/25 History
tablet (Vitamin C)
methotrexate sodium 25 mg/mL 25 mg SC SA RA 09/10/24 02/04/25 History
injection solution
rivaroxaban 20 mg tablet (Xarelto) 20 mg PO QPM Blood Clot 09/10/24 02/04/25 History
Prevention/Tx
therapeutic multivitamin 1 tab PO HS Supplement 09/10/24 02/04/25 History
Lactobac no.2-Bifidobac no.1-S. 1 cap PO BID Supplement 11/04/24 02/04/25 History
thermo 112.5 billion cell capsule
(Visbiome)
aspirin 81 mg tablet,delayed 81 mg PO HS Heart Disease/Condition 02/04/25 02/04/25 History
release
ergocalciferol (vitamin D2) 1,250 1,250 mcg PO TH Supplement 02/04/25 02/04/25 History
mcg (50,000 unit) capsule
esomeprazole magnesium 20 mg 20 mg PO DAILY Gastrointestinal 02/04/25 02/04/25 History
capsule,delayed release (Nexium) Issue
fluticasone 250 mcg-salmeterol 50 1 inh inhalation R DAILY 02/04/25 02/04/25 History
mcg/dose blistr powdr for Lung/Breathing Issues
inhalation (Advair Diskus)
gabapentin 800 mg tablet 800 mg PO QID Neurological 02/04/25 02/04/25 History
(Neurontin) Condition
insulin glargine 100 unit/mL (3 60 unit SC HS Diabetes 02/04/25 02/04/25 History
mL) subcutaneous pen (Lantus
Solostar U-100 Insulin)
insulin lispro 100 unit/mL 20 unit SC DAILY@1200 Diabetes 02/04/25 02/04/25 History
subcutaneous pen (Humalog KwikPen
(U-100) Insulin)
insulin lispro 100 unit/mL 28 unit SC DAILY Diabetes 02/04/25 02/04/25 History
subcutaneous pen (Humalog KwikPen
(U-100) Insulin)
insulin lispro 100 unit/mL 44 unit SC QPM Diabetes 02/04/25 02/04/25 History
subcutaneous pen (Humalog KwikPen
(U-100) Insulin)
lisinopril 10 mg tablet 10 mg PO DAILY Blood Pressure 02/04/25 02/04/25 History
metformin 500 mg tablet 500 mg PO QID Diabetes 02/04/25 02/04/25 History
methenamine hippurate 1 gram tablet 1 g PO BID Infection 02/04/25 02/04/25 History
metoprolol succinate 50 mg 25 mg PO DAILY Blood Pressure 02/04/25 02/04/25 History
tablet,extended release 24 hr
tramadol 50 mg tablet 50 mg PO TID Pain 02/04/25 02/04/25 History
Review of Systems
-
History Source: Patient
All other systems: Negative unless noted
Respiratory: Cough and Trouble Breathing
Cardiac: Chest Pain
Physical Exam
Vital Signs
Temp Pulse Resp BP Pulse Ox
97.5 F 96 14 106/69 98
02/05/25 04:09 02/05/25 04:09 02/05/25 04:09 02/05/25 04:09 02/05/25 04:09
Lab Results
02/05/25 06:51
02/05/25 06:51
Troponin I 0.018 ng/ml D 02/04/25 22:18
Ndy-A-Uigosyhethz Pept 1150 pg/ml 02/04/25 10:00
Physical Exam
General: Well Developed and No Apparent Distress
HEENT: Normocephalic and Anicteric
Respiratory: Other (coarse lung sounds to bases)
Cardiac: Irregular Rhythm
Skin: Warm and Dry
Neuro: AO x 3
Psych: Calm
Impression / Plan
-
Chest discomfort:
-constant since Monday at 4 PM, though improved in severity now. Worse with inspiration, palpation, and cough. Trops and EKG's unremarkable. Does not feel like his typical angina. Not consistent with ACS.
-Sounds pleuritic and he is being treated for possible PNA with ABX, requiring O2 by NC as well. Also with hx Schatzki ring and being treated with PPI.
CAD with hx LAD stenting:
-on ASA, statin, BB
-trops as above
HFrEF:
-chronic. Bumex held with DEONDRE. Of note, he self-reduced as OP due to frequent urination. Denies any recent weight gain.
-follow volume
CM (type unknown):
-most recent echo EF 25-30% (down from normal EF), in setting of acute illness. Plan was OP follow-up, but this has not happened yet. Echo ordered for today.
-meds have been limited by BP's, DEONDRE
-if remains reduced need to consider ischemic eval after recovery from above
AFIB: persistent vs permanent
-rate-controlled on metoprolol- continue
-continue Xarelto for OAC
DEONDRE:
-improved
-meds adjusted per hospitalists
-follow
Data Reviewed
-
EKG: Tracing Personally Visualized and interpreted (AFIB 93 BPM, RBBB)
Radiology: Report Reviewed by me (The lungs appear hypoinflated. Patchy parenchymal opacity within both lower lungs, most likely atelectasis, although pneumonia could have a similar appearance.)
Medical Tests (Nuc Med, Echo etc): Report Reviewed by me (Echo 11/05/24: Severely reduced left ventricular systolic function. Left ventricular ejection fraction is 25-30% by visual assessment. The basal leo are best preserved, but all leo are
hypokinetic. No significant valvular disease. )
Labs: Labs Reviewed by me
[2025-02-05] MEDS: ADVAIR HFA 115/21 MCG INHALER 2 PUFF INH ×2 (08:16→20:17)
[2025-02-05] MEDS: MAXIPIME 2000 MG IV (11:06)
[2025-02-05] MEDS: STERILE WATER FOR INJECTION 10 ML IV (11:06)
[2025-02-05 11:31] LABS: Glucose - Point of Care 138 mg/dl (70-99)
[2025-02-05] MEDS: NOVOLOG FLEXPEN-LOW RESISTANCE SC (11:31)
[2025-02-05] MEDS: NOVOLOG FLEXPEN SC (11:35)
--- NOTE | 2025-02-05 11:58 | CM ---
marketing planning manager reviewed patient's chart and met with patient and patient lives with his daughter, Tiny in a 2 story home with 3 steps to enter, patient has a 1st floor set up with in law suite, patient is independent with adl's and uses a rollator
with ambulation, patient has a CPAP, patient is current with [facility] visiting nurses for PT/OT and RN, patient with knee immobilizer and has spent time at [facility] nursing [facility], patient has used his skilled days and has been out
of a skilled facility for one month, patient's plan is to return to home at discharge with resumption of care with [facility] visiting nurses.
marketing planning manager received a consult for AD information for patient, AD information provided.
PCP: Dr Salas
Pharmacy [facility] in [place]
Plan; Home with daughterTiny and [facility] visiting nurses.
[facility]
[phone]
[2025-02-05] MEDS: MAGNESIUM OXIDE 500 MG PO (13:16)
--- NOTE | 2025-02-05 14:10 | PTOTSP ---
Speech Language Pathology
Pt seen for clinical bedside swallow evaluation. Pt reported he has upper dentures, which are at home, but he is able to chew without them. P.O. trials of regular solids and thin liquids provided. Slightly prolonged mastication secondary to
limited dentition, but this was functional. No oral residue. No overt signs of aspiration.
Recommend:
(1) Regular solids/thin liquids
(2) Esophageal precautions
(3) Meds as tolerated
(4) NUTRITIONAL SERVICES HOST to sign off. Please reconsult as indicated
[2025-02-05 16:18] LABS: Glucose - Point of Care 258 mg/dl (70-99)
[2025-02-05] MEDS: NOVOLOG FLEXPEN 20 UNITS SC (16:21)
[2025-02-05] MEDS: NOVOLOG FLEXPEN-LOW RESISTANCE 3 UNITS SC (16:22)
[2025-02-05] MEDS: XARELTO 20 MG PO (17:14)
[2025-02-05] MEDS: ZYLOPRIM 100 MG PO (17:14)
[2025-02-05] MEDS: VITAMIN C 500 MG PO (17:14)
[2025-02-05 21:47] LABS: Glucose - Point of Care 160 mg/dl (70-99)
[2025-02-05] MEDS: LANTUS 0.4 UNITS SC (22:41)
[2025-02-05] MEDS: LIPITOR 40 MG PO (22:42)
[2025-02-05] MEDS: FLOMAX 0.4 MG PO (22:42)
[2025-02-05] MEDS: THERAGRAN 1 TABLET PO (22:42)
[2025-02-05] MEDS: CYMBALTA DELAYED RELEASE 60 MG PO (22:42)
[2025-02-05] MEDS: ASPIR LOW (ENTERIC COATED) 81 MG PO (22:46)
[2025-02-06] MEDS: MAXIPIME 2000 MG IV ×2 (00:16→12:34)
[2025-02-06] MEDS: STERILE WATER FOR INJECTION 10 ML IV ×2 (00:17→12:35)
[2025-02-06 03:27] VITALS: BP 104/47
[2025-02-06 06:00] VITALS: BMI 40.5
--- NOTE | 2025-02-06 06:59 | W.PN.CD ---
Today's Communication / Plan
-
VQ scan.
Avoid nephrotoxic agents.
No role for invasive coronary evaluation at this time.
Impression / Plan
-
Impression/Plan: 79 y/o male with AF, CAD s/p prior PCI ([facility]), recovered [employer] (LVEF 25-30% --> 55-60%) with chronic HFrecEF, hypertension, 1st degree AVB/RBBB, obesity, JOHNNIE on CPAP, DM2 admitted with pleuritic chest pain.
#Chest discomfort
-Acute.
-Multifactorial. The patient has known CAD with prior PCI, HFpEF and esophageal spasm. Chest pain pattern (continuous for > 48 hours), non-ischemic EKG and negative troponin suggest that this is NOT ACS.
-Esophageal spasm now diagnosed and could certainly cause chest pain, though this is not typically pleuritic or exacerbated by cough. Increase PPI to BID.
-Echo does not show pericardial effusion, making pericarditis less likely.
-Empirically treated for PNA given CXR, immunosuppression.
-VQ scan today to evaluate for potential PE (less likely given rivaroxaban use) given DEONDRE, contrast allergy.
#CAD
-Chronic, stable.
-Hx LAD stenting.
-Continue aspirin, atorvastatin and metoprolol.
#Recovered cardiomyopathy/HFrecEF:
-Chronic, not grossly volume overloaded.
-Most recent echo shows LVEF has improved from 25-30% to 55-60%.
-GDMT:
-Diuretic: Bumetanide 1 mg q48h (currently on hold for DEONDRE).
-Beta lj: Metoprolol 25 mg daily.
-ACEI/ARB/ARNi: Lisinopril 10 mg daily (currently on hold for DEONDRE).
-MRA: None.
-SGLT2i: None.
-ICD: Not currently indicated.
#AFIB
-Chronic, persistent vs permanent.
-Currently in rate controlled AF.
-Rate control with metoprolol.
-CHADS2-Vasc = 6 (CHF, HTN, Age x2, DM, Vascular Disease).
-Therapeutic anticoagulation with rivaroxaban.
#DEONDRE
-Labs pending.
-Minimize nephrotoxic agents.
Subjective/Interval History:
Weight up 1.7 kg.
SaO2 93% on RA.
Barium swallow shows severe, diffuse esophageal spasm.
TTE shows resolution of critical illness cardiomyopathy and a normalized LVEF.
Labs pending this morning.
Chest pain and breathing are subjectively improved, but still not entirely normal.
DATA:
Esophageal XR/Barium Swallow, 02/05/2025:
IMPRESSION:
1. SEVERE DIFFUSE ESOPHAGEAL SPASM with a CORKSCREW ESOPHAGUS.
2. Obstruction of a barium impregnated tablet in the distal esophagus.
TTE, 02/05/2025:
CONCLUSIONS
TDS: Definity used.
Normal LV size and function with no regional wall motion abnormalities.
LVEF is 55-60% by visual estimation.
Flattened septum in systole and diastole consistent with RV pressure and volume
overload.
Dilated RV with reduced systolic function.
Limited valvular interrogation.
Small pericardial effusion.
Compared to prior from November 05, 2024, on [id number]-ol-[id number] comparison overall LVEF
is now normal, previously severely reduced at 25-30%.
Physical Exam
Vital Signs/Labs
Vital Signs
Temp Pulse Resp BP Pulse Ox
36.3 C 94 16 104/47 93
02/06/25 03:27 02/06/25 03:27 02/06/25 03:27 02/06/25 03:27 02/06/25 03:27
02/04/25 02/05/25 02/06/25
11:59 11:59 11:59
Actual Weight 147.8 kg 141.294 kg 142.972 kg
PT 20.3 Sec (11.4-14.6) H 02/04/25 10:35
INR 1.72 02/04/25 10:35
APTT 37.2 Sec (23.4-35.0) H 02/04/25 10:35
Magnesium 1.8 mg/dl (1.6-2.3) 02/05/25 06:51
02/04/25
10:00
Kir-N-Igjqlacsmaz Pept 1150
LAB Results
02/04/25 02/04/25 02/04/25
10:00 17:06 22:18
Troponin I < 0.012 0.013 0.018 D
Physical Exam
Constitutional: No acute distress and Comfortable
EENT: Anicteric and Moist mucous membranes
Cardiovascular: Rhythm & rate is regular, Pedal edema present, S1S2 is normal and Murmur/rub/gallop absent
Respiratory: Respiratory effort normal, Wheeze Absent, Crackles Absent, Rhonchi Absent and Other (Decreased in the LLL.)
GI: Soft, Distention absent, Flat, Non tender and Normal bowel sounds
Neuro/Psych: AO x 3
Data Reviewed
-
Date of Service: February 06, 2025
Medical Decision Making: Reviewed Test Results, Tests Ordered, Independent Historian Assessment and Test Interpretation
EKG: Tracing Personally Visualized and interpreted and Report Reviewed by me
Echo: Tracing Personally Visualized and interpreted and Report Reviewed by me
X-Ray/CT/US/MRI/NUC/PET: Image Personally Visualized and interpreted and Report Reviewed by me
Labs: Labs Reviewed by me
Old Records: Reviewed
[2025-02-06 07:26] LABS: Hematocrit 30.8 % (39.0-52.0); Hemoglobin 10.1 g/dL (13.0-18.0); Mean Corp Hgb Conc. 32.8 g/dL (33.0-37.0); Mean Corpuscular Hgb 30.1 pg (27.0-31.0); Mean Corpuscular Volume 91.9 fL (80.0-94.0); Mean Platelet Volume 10.4 fL (7.4-10.4); Platelet Count 215 10^3/uL (130-400); Red Blood Cell Count 3.35 10^6/uL (4.70-6.10); Red Cell Dist. Width 18.2 % (11.5-14.5); White Blood Cell Count 9.7 10^3/uL (4.8-10.8)
[2025-02-06] MEDS: ADVAIR HFA 115/21 MCG INHALER 2 PUFF INH ×2 (07:38→19:49)
[2025-02-06 08:00] VITALS: BP 107/58
--- NOTE | 2025-02-06 08:03 | W.PN.HOSP.TC ---
Today's Communication/Plan
-
.
Assessment / Plan
Assessment / Plan
IMPRESSION:
82yoM [facility] HFrEF (EF 25-30%), CAD s/p stents, afib, COPD, HTN, DM presenting to [facility] ED for CP that began yesterday afternoon. Pt returning from [facility] when sx started, unrelieved by nitroglycerin. The pain is located in the middle of his
chest and is unlike any pain he has experienced before. Hx of severe UTIs, fell in July due to one and broke both knees requiring b/l TKR. ECG pos for afib w RBBB. CXR concerning for pneumonia vs atelectasis.
PLAN:
Sepsis secondary to presumed pneumonia
- SIRS: tachycardia, tachypnea, leukocytosis
- ECG: afib w RBBB
- CXR: pneumonia vs atelectasis
- bcx, sputum cx - no growth at 24h
- supplemental O2
- cefepime
Chest pain
- lipase 30
- trend troponins
- echo
- esophagram - SEVERE DIFFUSE ESOPHAGEAL SPASM with a CORKSCREW ESOPHAGUS. Obstruction of a barium impregnated tablet in the distal esophagus.
- cardiology consult
DEONDRE
- Cr peak 1.6, baseline 1.0, trending downwards
- restart bumex
Hypotension
- asymptomatic
- monitor
Hx UTI
- u/a
HFrEF (EF 25-30%)
HTN
- echo 11/05/24: LVEF 25-30%, IVC dilated
- daily weights, I/O's
- reported dry weight 309 lbs
- keep K>4, Mg>2
- cont home metoprolol succinate
- hold lisinopril
Afib
- cont home xarelto, metoprolol
CAD s/p stent
HLD
- cont home ASA, atorvastatin
IDDM
- home insulin: lantus 60u HS. Lispro 28u breakfast, 20u lunch, 44u dinner.
- 40u lantus HS. Aspart 20u breakfast, 20u lunch, 30u dinner + SSI
- hold metformin
Rheumatoid arthritis
- hold leucovorin, methotrexate
- cont prednisone
Hx of traumatic knee fx s/p TKR
- brace for L knee
Depression
- cont home duloxetine, nortriptyline
Neuropathy
- cont gabapentin
GERD
- cont ppi
BPH
- cont finasteride, tamsulosin
- bladder scan/straight cath
Gout
- cont allopurinol
Diet: full liquids
DVT ppx: xarelto
Code status: FULL CODE
Anticipated Discharge: 24 - 48 hours
Subjective/Interval History
-
Date of Service: February 06, 2025
No acute overnight events
Objective Data
-
Labs:
Laboratory Results
02/06/25 02/06/25
07:10 08:02
WBC 9.7
Hgb 10.1 L
Hct 30.8 L
Plt Count 215
Sodium Cancelled Pending
Potassium Cancelled Pending
Chloride Cancelled Pending
Carbon Dioxide Cancelled Pending
BUN Cancelled Pending
Creatinine Cancelled Pending
Glucose Cancelled Pending
Calcium Cancelled Pending
Vital Signs:
Vital Signs
Temp Pulse Resp BP Pulse Ox
97.4 F 90 16 104/47 96
02/06/25 03:27 02/06/25 07:46 02/06/25 07:46 02/06/25 03:27 02/06/25 07:46
I&O
02/05/25 02/06/25 02/07/25
06:59 06:59 06:59
Intake Total 480 / 480
Output Total 750 / 750
Balance -270 / -270
Review of Systems
-
History Source: Patient
Constitutional: Reports No Symptoms
Respiratory: Reports No Symptoms
Cardiac: Reports Chest Pain
Abdomen/GI: Reports Abdominal Pain
Neuro: Reports No Symptoms
Physical Exam
-
General: Well Developed, Well Nourished and Morbidly Obese
HEENT: Normocephalic and Atraumatic
Respiratory: Clear to Auscultation and Non Labored Respirations
Cardiac: S1/S2 and Irregular Rhythm
GI: Soft, Nondistended, Normal Bowel Sounds and Tender
Musculoskeletal: No Clubbing, No Cyanosis, Edema, Right Lower Extrem and Edema, Left Lower Extrem
Skin: Warm and Dry
Neuro: Awake, Alert and Oriented
Psych: Calm
[2025-02-06 08:50] LABS: Glucose - Point of Care 193 mg/dl (70-99)
[2025-02-06] MEDS: NOVOLOG FLEXPEN-LOW RESISTANCE 1 UNITS SC ×2 (09:01→18:00)
[2025-02-06] MEDS: NOVOLOG FLEXPEN 20 UNITS SC ×2 (09:01→12:33)
[2025-02-06] MEDS: PROTONIX IV 40 MG IV ×2 (09:02→20:20)
[2025-02-06] MEDS: DELTASONE 5 MG PO (09:02)
[2025-02-06] MEDS: NSS (PRESERVATIVE FREE) 10 ML IV ×2 (09:02→20:21)
[2025-02-06] MEDS: NEURONTIN 600 MG PO ×3 (09:03→22:14)
[2025-02-06] MEDS: PAMELOR 50 MG PO ×2 (09:03→20:19)
[2025-02-06] MEDS: TOPROL XL 25 MG PO (09:03)
[2025-02-06] MEDS: ULTRAM 50 MG PO ×3 (09:04→22:14)
[2025-02-06] MEDS: VISBIOME 1 CAP PO ×2 (09:04→20:20)
[2025-02-06] MEDS: PROSCAR 5 MG PO (09:04)
[2025-02-06] MEDS: DRISDOL (VITAMIN D2) 50000 UNITS PO (09:07)
[2025-02-06 09:14] LABS: Blood Urea Nitrogen 39 mg/dl (9-20); Calcium 8.7 mg/dl (8.4-10.2); Carbon Dioxide 27 mmol/L (22-30); Chloride 102 mmol/L (98-107); Estimated Creatinine Clearance 89 ml/min; Glucose 172 mg/dl (70-99); Magnesium 1.9 mg/dl (1.6-2.3); Sodium 135 mmol/L (135-145); eGFR > 60.00
[2025-02-06 12:18] LABS: Glucose - Point of Care 241 mg/dl (70-99)
[2025-02-06] MEDS: NOVOLOG FLEXPEN-LOW RESISTANCE 2 UNITS SC (12:33)
[2025-02-06] MEDS: BUMEX 1 MG PO (12:35)
--- NOTE | 2025-02-06 15:53 | CM ---
Patient to return to home with daughter and [facility] visiting nurses.
[facility]
[phone]
[2025-02-06] MEDS: ZYLOPRIM 100 MG PO ×2 (16:58→17:00)
[2025-02-06] MEDS: XARELTO 20 MG PO ×2 (16:58→17:00)
[2025-02-06] MEDS: VITAMIN C 500 MG PO ×2 (16:58→17:00)
[2025-02-06 17:05] LABS: Glucose - Point of Care 191 mg/dl (70-99)
[2025-02-06] MEDS: NOVOLOG FLEXPEN 25 UNITS SC (18:00)
[2025-02-06 19:45] VITALS: BP 101/60
[2025-02-06] MEDS: LIPITOR 40 MG PO (20:21)
[2025-02-06] MEDS: THERAGRAN 1 TABLET PO (20:22)
[2025-02-06] MEDS: ASPIR LOW (ENTERIC COATED) 81 MG PO (20:22)
[2025-02-06 21:28] LABS: Glucose - Point of Care 194 mg/dl (70-99)
[2025-02-06] MEDS: FLOMAX 0.4 MG PO (22:14)
[2025-02-06] MEDS: CYMBALTA DELAYED RELEASE 60 MG PO (22:14)
[2025-02-06] MEDS: LANTUS 0.4 UNITS SC (22:14)
[2025-02-06 23:45] VITALS: BP 108/78
[2025-02-07] MEDS: STERILE WATER FOR INJECTION 10 ML IV ×2 (00:36→11:42)
[2025-02-07] MEDS: MAXIPIME 2000 MG IV ×2 (00:36→11:42)
[2025-02-07 06:00] VITALS: BMI 40.3
--- NOTE | 2025-02-07 07:07 | W.PN.CD ---
Today's Communication / Plan
-
Bumetanide 1 mg daily. Outpatient BMP in one week.
Start dapagliflozin 10 mg.
Case management consult.
Empiric course of antibiotics for PNA.
Discharge planning.
Impression / Plan
-
Impression/Plan: 79 y/o male with AF, CAD s/p prior PCI ([facility]), recovered LICENSED APPRAISER (LVEF 25-30% --> 55-60%) with chronic HFrecEF, hypertension, 1st degree AVB/RBBB, obesity, JOHNNIE on CPAP, DM2 admitted with pleuritic chest pain.
#Chest discomfort
-Acute.
-Multifactorial. The patient has known CAD with prior PCI, HFpEF and esophageal spasm. Chest pain pattern (continuous for > 48 hours), non-ischemic EKG and negative troponin suggest that this is NOT ACS.
-Esophageal spasm now diagnosed and could certainly cause chest pain, though this is not typically pleuritic or exacerbated by cough. Increase PPI to BID.
-Echo does not show pericardial effusion, making pericarditis less likely.
-VQ scan negative for PE.
-Empirically treated for PNA given CXR, immunosuppression. Pain may be a pleurisy component from local inflammation.
#CAD
-Chronic, stable.
-Hx LAD stenting.
-Continue aspirin, atorvastatin and metoprolol.
#Recovered cardiomyopathy/HFrecEF:
-Chronic, not grossly volume overloaded on exam, but weight is up 12 kgs from early December and the echo suggests right sided volume overload.
-Most recent echo shows LVEF has improved from 25-30% to 55-60%.
-GDMT:
-Diuretic: Bumetanide 1 mg q48h (resume at 1 mg daily given weight gain - He will need outpatient BMP in one week).
-Beta lj: Metoprolol 25 mg daily.
-ACEI/ARB/ARNi: Lisinopril 10 mg daily (discontinue indefinitely as BP is well controlled and LVEF has normalized).
-MRA: None.
-SGLT2i: Start dapagliflozin 10 mg daily. Case management consult.
-ICD: Not currently indicated.
#AFIB
-Chronic, persistent vs permanent.
-Currently in rate controlled AF.
-Rate control with metoprolol.
-CHADS2-Vasc = 6 (CHF, HTN, Age x2, DM, Vascular Disease).
-Therapeutic anticoagulation with rivaroxaban.
#DEONDRE
-Labs pending.
-Minimize nephrotoxic agents.
Subjective/Interval History:
VQ scan low risk for PE.
Renal function has normalized.
DATA:
Esophageal XR/Barium Swallow, 02/05/2025:
IMPRESSION:
1. SEVERE DIFFUSE ESOPHAGEAL SPASM with a CORKSCREW ESOPHAGUS.
2. Obstruction of a barium impregnated tablet in the distal esophagus.
TTE, 02/05/2025:
CONCLUSIONS
TDS: Definity used.
Normal LV size and function with no regional wall motion abnormalities.
LVEF is 55-60% by visual estimation.
Flattened septum in systole and diastole consistent with RV pressure and volume
overload.
Dilated RV with reduced systolic function.
Limited valvular interrogation.
Small pericardial effusion.
Compared to prior from November 05, 2024, on [id number] comparison overall LVEF
is now normal, previously severely reduced at 25-30%.
VQ Scan, 02/06/2025:
IMPRESSION:
Very low probability using the modified PIOPED II criteria.
Physical Exam
Vital Signs/Labs
Vital Signs
Temp Pulse Resp BP Pulse Ox
36.4 C 95 20 108/78 96
02/06/25 23:45 02/06/25 23:45 02/06/25 23:45 02/06/25 23:45 02/06/25 23:45
02/05/25 02/06/25 02/07/25
11:59 11:59 11:59
Actual Weight 141.294 kg 142.972 kg 142.456 kg
PT 20.3 Sec (11.4-14.6) H 02/04/25 10:35
INR 1.72 02/04/25 10:35
APTT 37.2 Sec (23.4-35.0) H 02/04/25 10:35
Magnesium 1.9 mg/dl (1.6-2.3) 02/06/25 08:23
02/04/25
10:00
Fkd-B-Hrslmxrrznk Pept 1150
LAB Results
02/04/25 02/04/25 02/04/25
10:00 17:06 22:18
Troponin I < 0.012 0.013 0.018 D
Physical Exam
Constitutional: No acute distress and Comfortable
EENT: Anicteric, Moist mucous membranes and Other
Cardiovascular: Rhythm & rate is regular, Pedal edema present, S1S2 is normal and Murmur/rub/gallop absent
Respiratory: Respiratory effort normal, Wheeze Absent, Crackles Absent, Rhonchi Absent and Other (Decreased in the LLL.)
GI: Soft, Distention absent, Flat, Non tender and Normal bowel sounds
Neuro/Psych: AO x 3
Data Reviewed
-
Date of Service: February 07, 2025
Medical Decision Making: Reviewed Test Results, Independent Historian Assessment and Test Interpretation
EKG: Tracing Personally Visualized and interpreted and Report Reviewed by me
Echo: Tracing Personally Visualized and interpreted and Report Reviewed by me
X-Ray/CT/US/MRI/NUC/PET: Image Personally Visualized and interpreted and Report Reviewed by me
Medical Tests (PFT, Pathology etc): Image Personally Visualized and interpreted and Report Reviewed by me
Labs: Labs Reviewed by me
[2025-02-07 07:15] VITALS: BP 121/74
[2025-02-07] MEDS: ADVAIR HFA 115/21 MCG INHALER 2 PUFF INH (07:26)
[2025-02-07 08:06] LABS: Hematocrit 31.3 % (39.0-52.0); Hemoglobin 10.1 g/dL (13.0-18.0); Mean Corp Hgb Conc. 32.3 g/dL (33.0-37.0); Mean Corpuscular Hgb 30.6 pg (27.0-31.0); Mean Corpuscular Volume 94.8 fL (80.0-94.0); Mean Platelet Volume 10.9 fL (7.4-10.4); Platelet Count 238 10^3/uL (130-400); Red Cell Dist. Width 17.8 % (11.5-14.5); White Blood Cell Count 8.5 10^3/uL (4.8-10.8)
[2025-02-07 08:34] LABS: Glucose - Point of Care 103 mg/dl (70-99)
--- NOTE | 2025-02-07 08:45 | PN.CDI ---
CDI
- -
CDI:
Physician Documentation Request
Admit Date: 02/04/25 14:42
Dear Doctor Harshal/Resident ,
Please review the following and provide your response in the progress notes.
Clinical Indicators:
Pt admitted with sepsis 2/2 PNA /DEONDRE
There is potentially conflicting documentation regarding the type of CHF .
Documented per cardiology progress note 02/06,' HFpEF ...Most recent echo shows LVEF has improved from 25-30% to 55-60%.....'
Progress note 02/06,' HFrEF (EF 25-30%)...'
ECHO 02/05,' LVEF is 55-60% by visual estimation....'
Due to potentially conflicting documentation Please provide further specificity regarding the most likely type of CHF you are evaluating, treating or monitoring.
Chronic Diastolic CHF
Chronic Systolic CHF ( no change in documentation )
Other ( please specify)
Use of terms such as suspected, likely, concern for, or probable (associated with a specific diagnosis that is being evaluated, monitored, or treated as if it exists) are acceptable and can be coded in the inpatient setting, when documented at the
time of discharge.
Thank you,
Cherelle Deras RN
CDI Specialist
[place] [facility]
Please use your independent medical judgment in providing your response.
[2025-02-07 08:55] LABS: Blood Urea Nitrogen 32 mg/dl (9-20); Calcium 8.8 mg/dl (8.4-10.2); Carbon Dioxide 29 mmol/L (22-30); Chloride 101 mmol/L (98-107); Estimated Creatinine Clearance 89 ml/min; Glucose 110 mg/dl (70-99); Magnesium 1.9 mg/dl (1.6-2.3); Potassium 3.8 mmol/L (3.5-5.1); Sodium 137 mmol/L (135-145); eGFR > 60.00
[2025-02-07] MEDS: NOVOLOG FLEXPEN 25 UNITS SC ×2 (09:14→11:43)
[2025-02-07] MEDS: NOVOLOG FLEXPEN-LOW RESISTANCE SC (09:16)
[2025-02-07] MEDS: PROTONIX IV 40 MG IV (09:17)
[2025-02-07] MEDS: NSS (PRESERVATIVE FREE) 10 ML IV (09:17)
[2025-02-07] MEDS: VISBIOME 1 CAP PO (09:18)
[2025-02-07] MEDS: TOPROL XL 25 MG PO (09:18)
[2025-02-07] MEDS: NEURONTIN 600 MG PO (09:18)
[2025-02-07] MEDS: PROSCAR 5 MG PO (09:19)
[2025-02-07] MEDS: BUMEX 1 MG PO (09:19)
[2025-02-07] MEDS: DELTASONE 5 MG PO (09:19)
[2025-02-07] MEDS: PAMELOR 50 MG PO (09:19)
[2025-02-07] MEDS: ULTRAM 50 MG PO (09:19)
--- NOTE | 2025-02-07 10:08 | CM ---
Chart reviewed and case finishing machine adjuster received request for pricing for Farxiga and cost is $47 per month Cardiology made aware. Plan is to home today with daughter and [facility] visiting nurses.
[facility]
[phone]
[2025-02-07] MEDS: FARXIGA 10 MG PO (11:10)
[2025-02-07 11:26] LABS: Glucose - Point of Care 182 mg/dl (70-99)
[2025-02-07] MEDS: NOVOLOG FLEXPEN-LOW RESISTANCE 1 UNITS SC (11:43)
[2025-02-07 12:39] VITALS: BP 118/72
--- NOTE | 2025-02-07 13:41 | W.PN.HOSP.TC ---
Addendum entered and electronically signed by Mateo Caputo MD 02/09/25 13:34:
Add on to diagnosis list
Chronic systolic congestive heart failure
Original Note:
Today's Communication/Plan
-
d/c home
Assessment / Plan
Assessment / Plan
1. Chest pain episode - less likely ACS, potential GI/esophageal issues -patient with history of Schatzki's ring/dysphagia where food gets stuck in the chest. Initial troponin negative and EKG did not show any ST segment elevation. Follow-up
troponin negative as well. VQ scan done by cardiology and negative for any VTE.
2. Diffuse esophageal spasm/corkscrew esophagus - start patient on IV PPI twice daily. Esophagogram showing corkscrew esophagus, discussed with GI of consult -no medication to lead to help in this condition. Small bites of food with liquid intake
to help pass the food. Will refer to Dr. Liam Strong for further evaluation in the office. May require outpatient EGD/manometric.
2. Community-acquired pneumonia -chest x-ray questioning of bilateral pneumonia. Have some leukocytosis , afebrile no cough production. Patient mainly presented for chest pain and not pulmonary symptoms. Maintained on empiric IV cefepime for time
being. Culture remains negative. Patient WBC has trended down. Remains afebrile. Discontinue further antibiotics at discharge.
2. Chronic systolic congestive heart failure -patient has reported weight gain. Cardiology recommended patient Bumex to be adjusted to 1 mg daily. Follow-up BMP prescription in 1 week provided. Patient will need to follow-up with cardiology in
office
3. DEONDRE -renal function has normalized. Will resume back lisinopril and metformin at discharge
4. JOHNNIE on CPAP -continue home dose CPAP
5. Type 2 diabetes -patient had lower blood glucose during the hospital stay and will discharge on a lower regimen of insulin Lantus 40 units at bedtime and 20 to 30 units Premeal. Escalation be warranted depending on patient postdischarge blood
glucose.
6. Hypotension - improved - provide blood pressure medication with holding parameter. Patient asymptomatic. This is likely due to patient's history of heart failure, no overt concern of ongoing sepsis/septic shock
Care plan discussed with patient daughter over the phone
More than 30 minutes spent in discharge including
Final examination of the patient
Summarizing hospital stay
Instructions for continuing care to all relevant caregivers
Preparation of discharge records, prescriptions, and referral forms
Total time spent (in minutes): 39 mins
Anticipated Discharge: Today
Subjective/Interval History
-
Date of Service: February 07, 2025
Denies of having any further chest pain
No other reported problems
Objective Data
-
Labs:
Laboratory Results
02/07/25
07:34
WBC 8.5
Hgb 10.1 L
Hct 31.3 L
Plt Count 238
Sodium 137
Potassium 3.8
Chloride 101
Carbon Dioxide 29
BUN 32 H
Creatinine 1.0
Glucose 110 H
Calcium 8.8
Vital Signs:
Vital Signs
Temp Pulse Resp BP Pulse Ox
97.7 F 95 16 121/74 98
02/07/25 07:15 02/07/25 09:18 02/07/25 07:15 02/07/25 09:18 02/07/25 08:16
I&O
02/06/25 02/07/25 02/08/25
06:59 06:59 06:59
Intake Total 480 / 480 1020 / 1020 480 / 480
Output Total 750 / 750 650 / 650 800 / 800
Balance -270 / -270 370 / 370 -320 / -320
Review of Systems
-
Respiratory: Reports No Symptoms
Cardiac: Reports No Symptoms
Abdomen/GI: Reports No Symptoms
Physical Exam
-
General: No Apparent Distress and Comfortable
HEENT: Negative Oxygen
Respiratory: Clear to Auscultation
Cardiac: Regular Rhythm and S1/S2; Negative Murmur or Rub
GI: Soft, Nontender, Nondistended and Normal Bowel Sounds
Musculoskeletal: No Edema
Neuro: Awake, Alert, Oriented, No Motor Deficits and Nonfocal/Grossly Intact
Psych: Calm
[2025-02-07 19:36] LABS: Hepatitis C Antibody Negative (Negative)
--- NOTE | 2025-02-08 16:14 | W.DCSUMMARY ---
Discharge Summary
Discharge Data
Date of Admission: 02/04/25
Date of Discharge: 02/07/25
-
Pending Results: No
Hospital Course
Discharging Physician : Dr Mateo Caputo
Disposition : To home
Primary care physician : Dr Willie Robbins
Principal Discharge diagnosis :
Chest pain episodes
Diffuse esophageal spasm
Gastroesophageal reflux disease
Community-acquired pneumonia
Acute kidney injury
Chronic Discharge diagnosis :
Chronic systolic congestive heart failure
Obstructive sleep apnea on CPAP
Type 2 diabetes mellitus
Hypertension
Morbid obesity
Hospital Course :
Patient is a 79-year-old male with above-mentioned past medical history came to ER for having new onset of chest pain which was sternal in nature and nonradiating. Patient was describing pain as burning and pressure-like at times. In ER patient
had troponin/EKG with no true concern of ACS. Cardiology was involved in care and evaluated patient. A VQ scan was done which ruled out PE. Patient have a history of substance ring and for few weeks was reporting food getting stuck in the chest.
An x-ray of her was done which showed corkscrew esophagus/diffuse esophageal spasms. Case discussed of consult sports athletic trainer who recommended patient to follow-up with outpatient sports athletic trainer for further evaluation. Patient recommended
to have small bite and soft food for time being. Protonix was added to regimen to help reflux symptoms with which patient chest pain improved and chest pain at admission likely was esophageal/reflux related.
Patient also was found to have questionable bilateral pneumonia on x-ray and had significant leukocytosis. Patient was afebrile and not complaining any productive cough. Patient was maintained on empiric cefepime. No clear etiological organism
isolated. Patient antibiotic course was finished during the hospital course.
Patient had some volume overload state and acute kidney injury, diuretics initially were held and after improvement of fluid status patient was started back on home dose of diuretic. Cardiology recommended to increase Bumex dose to 1 mg daily at
discharge.
Patient was evaluated by physical therapy and was appropriate for home discharge
Important imaging findings :
None
Procedure findings :
None
Discharge Plan
-
Patient Disposition: Home with Home Care
Discharge Diagnosis/Procedures: Chest pain, esophageal spasms, DEONDRE , systolic HF
Condition: Fair
Diet: 2 Gram Sodium and Diabetic, Carb Controlled
Activity: As tolerated
Driving Restrictions: As prior to admission
Bathing Restrictions: OK to Shower
Blood Work: BMP in 1 week
Referrals:
Liam Oliver MD [Active, Gastroenterology] - in three to four weeks
Willie Robbins MD [Family Provider, Family Practice] - in one week
Prescriptions:
New
bumetanide 1 mg Tablet
1 mg PO DAILY Qty: 30 1RF
dapagliflozin propanediol 10 mg Tablet
10 mg PO DAILY Qty: 30 2RF
pantoprazole 40 mg tablet,delayed release (DR/EC)
40 mg PO BID 10 Days Qty: 60 1RF
Rx Instructions:
Change to once daily after 1 month
pantoprazole [Protonix] 40 mg tablet,delayed release (DR/EC)
40 mg PO BID Qty: 60 1RF
Rx Instructions:
Change to once daily after 30 days
Continued
prednisone 5 MG tablet
5 mg PO DAILY
tamsulosin 0.4 MG capsule
0.4 mg PO HS
atorvastatin [Lipitor] 40 MG tablet
40 mg PO HS
allopurinol 100 MG tablet
100 mg PO QPM
finasteride 5 MG tablet
5 mg PO DAILY
omega-3 acid ethyl esters [Lovaza] 1 GM capsule
1 gm PO TID
leucovorin calcium 10 mg Tablet
10 mg PO DIRECTED
Rx Instructions:
take 12 hour the day you take methotrexate injection
nortriptyline 50 mg Capsule
50 mg PO BID
duloxetine 60 mg Capsule,Delayed Release(Dr/Ec)
60 mg PO HS
therapeutic multivitamin Tablet
1 tab PO HS
methotrexate sodium 25 mg/mL Solution
25 mg SC SA
ascorbic acid (vitamin C) [Vitamin C] 500 mg Tablet
500 mg PO QPM
Xarelto 20 MG tablet
20 mg PO QPM
Visbiome 112.5 billion cell Capsule
1 cap PO BID
metformin 500 mg Tablet
500 mg PO QID
fluticasone propion-salmeterol [Advair Diskus] 250-50 mcg/dose Blister With Device
1 inh INHALATION R DAILY
tramadol 50 mg Tablet
50 mg PO TID
methenamine hippurate 1 gram Tablet
1 g PO BID
ergocalciferol (vitamin D2) 1,250 mcg (50,000 unit) Capsule
1,250 mcg PO TH
metoprolol succinate 50 mg tablet extended release 24 hr
25 mg PO DAILY
Rx Instructions:
hold for SBP<100 or HR<60
gabapentin [Neurontin] 800 MG tablet
800 mg PO QID
aspirin 81 mg Tablet,Delayed Release (Dr/Ec)
81 mg PO HS
lisinopril 10 mg Tablet
10 mg PO DAILY
insulin lispro [Humalog KwikPen Insulin] 100 unit/mL Insulin Pen
20 unit SC DAILY@1200
Changed
insulin lispro [Humalog KwikPen Insulin] 100 unit/mL Insulin Pen
25 unit SC QPM Qty: 0 0RF
insulin lispro [Humalog KwikPen Insulin] 100 unit/mL Insulin Pen
25 unit SC DAILY Qty: 0 0RF
insulin glargine [Lantus Solostar U-100 Insulin] 100 unit/mL (3 mL) Insulin Pen
40 unit SC HS Qty: 0 0RF
Discontinued
bumetanide 1 mg Tablet
1 mg PO Q48H
esomeprazole magnesium [Nexium] 20 mg Capsule,Delayed Release(Dr/Ec)
20 mg PO DAILY
Discharge Orders:
Discharge Patient (As Directed); Ordered 02/07/25
Ordered By: Mateo Caputo
Discharge Date and Time
Discharge Date/Time: 02/07/25 14:30
Print Language: EGYPTIAN
== END 2025-02-07 14:30 | disposition home health service (06) | DRG 871 ==
LOC: 4 WEST ACU 14:42
PROVIDERS: ADMITTING PHYSICIAN Hospitalist; CONSULT PHYSICIAN Student in an Organized Health Care Education/Training Program; EMERGENCY PHYSICIAN Emergency Medicine; FAMILY PHYSICIAN Family Medicine; OTHER PHYSICIAN Internal Medicine Cardiovascular Disease
DX: A41.9 Sepsis, unspecified organism (principal); J18.9 Pneumonia, unspecified organism; J44.0 Chronic obstructive pulmonary disease with (acute) lower respiratory infection; N17.9 Acute kidney failure, unspecified; I50.22 Chronic systolic (congestive) heart failure; I48.21 Permanent atrial fibrillation; J96.11 Chronic respiratory failure with hypoxia; D84.821 Immunodeficiency due to drugs; G47.33 Obstructive sleep apnea (adult) (pediatric); E11.40 Type 2 diabetes mellitus with diabetic neuropathy, unspecified; I11.0 Hypertensive heart disease with heart failure; Z95.5 Presence of coronary angioplasty implant and graft; I45.10 Unspecified right bundle-branch block; K22.4 Dyskinesia of esophagus; M06.9 Rheumatoid arthritis, unspecified; F32.A Depression, unspecified; K21.9 Gastro-esophageal reflux disease without esophagitis; N40.0 Benign prostatic hyperplasia without lower urinary tract symptoms; I25.10 Atherosclerotic heart disease of native coronary artery without angina pectoris; I87.8 Other specified disorders of veins; E66.9 Obesity, unspecified; E78.00 Pure hypercholesterolemia, unspecified; Z77.22 Contact with and (suspected) exposure to environmental tobacco smoke (acute) (chronic); Z79.01 Long term (current) use of anticoagulants; Z79.4 Long term (current) use of insulin; Z79.51 Long term (current) use of inhaled steroids; Z79.631 Long term (current) use of antimetabolite agent; Z79.84 Long term (current) use of oral hypoglycemic drugs; Z79.899 Other long term (current) drug therapy; Z87.891 Personal history of nicotine dependence; Z88.0 Allergy status to penicillin; Z88.1 Allergy status to other antibiotic agents; Z88.2 Allergy status to sulfonamides; Z88.5 Allergy status to narcotic agent; Z91.041 Radiographic dye allergy status; Z91.81 History of falling; Z96.653 Presence of artificial knee joint, bilateral
CPT/HCPCS: 93308; 71045; 71046; 74221; 78582; 80048; 80053; 81003; 81015; 82962; 83036; 83605; 83690; 83735; 83880; 84484; 85025; 85027; 85610; 85730; 86803; 87040; 87086; 92610; 93005; 93321; 93325; 94640; 96374; 97116; 97163; 97167; 97530; 99285; A9540; A9567; Q9950

== ENCOUNTER 2025-02-13 10:36 | Emergency (ER) | payer MEDICARE, OTHER, SELFPAY ==
[2025-02-13 10:41] VITALS: BP 107/72; BMI 41.1
[2025-02-13 10:42] VITALS: BP 107/72
--- NOTE | 2025-02-13 11:05 | ED.GENMED ---
History of Present Illness
General
Chief Complaint: Fall
Source: patient and ambulance crew
Exam Limitations: none
Time Seen by Provider: 02/13/25 10:57
Nursing documentation reviewed up to this point in time: agreed with
History of Present Illness
History of Present Illness:
Note:
CHIEF COMPLAINT(S)
Back pain and head injury due to fall.
HISTORY OF PRESENT ILLNESS
The patient is an 79-year-old male with a history of atrial fibrillation on Rivaroxaban (Xarelto). He presents after a fall in which he hit the back of his head. The incident occurred after he attempted to weigh himself on a scale positioned close
to the wall, leading to a loss of balance. The patient reports pain in the back of his head where he landed on a trash bag, which cushioned the impact. He also mentions a new pain in the right hip. He has a limited ability to move his legs,
consistent with his baseline mobility issues. He is in some pain, primarily in the right hip. There are no significant changes in his usual symptoms, such as difficulty moving his feet.
PHYSICAL EXAM
Nursing notes reviewed and vital signs reviewed.
- General: Afebrile, in no acute distress.
- Head, Eyes, Ears, Nose, and Throat: Head atraumatic, pupils equally round and reactive to light.
- Pulmonary: Lungs clear bilaterally, no respiratory distress.
- Cardiac: S1 and S2 with irregular rhythm, normal rate.
- Abdomen: Soft, non-tender, non-distended.
- Musculoskeletal: Limited range of motion in bilateral legs.
- Neurologic: Cranial nerves II-XII intact, no neurological deficits.
MEDICATIONS
Rivaroxaban for atrial fibrillation.
DIFFERENTIAL DIAGNOSIS
The Differential Diagnosis includes, in no particular order and is not limited to:
1. Closed head injury
2. Hip fracture
3. Soft tissue injury
4. Subdural hematoma
5. Cervical spine injury
6. Contusion
7. Hematoma
8. Vertebral compression fracture
9. Intracranial hemorrhage
10. Medication side effects (Rivaroxaban)
CARE-UPDATE
02/13/25 - 13:18
Patient remains stable and pain is well-controlled. Recent head CT shows no acute findings, and a hip x-ray confirms the absence of fractures with arthroplasty intact. Lumbar spine x-ray reveals no fractures but degenerative changes are present.
Discharge planned with follow-up arranged with primary care.
Disposition:
SUMMARY OF ENCOUNTER
The patient, an 79-year-old male with a history of atrial fibrillation on Rivaroxaban, presented after a fall resulting in head injury and right hip pain. Imaging showed no new findings. Due to the fall, differential considerations included closed
head injury, hip fracture, and other potential complications.
DISPOSITION
The patient is stable and discharged home under the care of his family, with plan for outpatient management.
ASSESSMENT
Fall with resulting right hip pain, low back strain.
PLAN
The patient is discharged with recommendations for follow-up with primary care.
INDEPENDENT REVIEW OF LABS AND INTERPRETATION OF TESTS
- My independent interpretation of a head CT is no acute findings.
- My independent interpretation of a hip x-ray confirms no fractures with arthroplasty intact.
- My independent interpretation of a lumbar spine x-ray reveals no fractures with degenerative changes present.
FOLLOW-UP INSTRUCTIONS
Follow-up arranged with primary care provider.
MEDICATION RECONCILIATION
Rivaroxaban (Xarelto) for atrial fibrillation was noted as part of the patients medication regimen.
MEDICAL DECISION MAKING
1. Number & Complexity of Problems: Chronic condition affecting care includes atrial fibrillation on Rivaroxaban. Differential diagnoses considered: closed head injury, hip fracture, soft tissue injury, subdural hematoma, cervical spine injury,
contusion, hematoma, vertebral compression fracture, intracranial hemorrhage, medication side effects.
2. Data Reviewed: Imaging studies including head CT, hip x-ray, and lumbar spine x-ray were reviewed and interpreted.
3. Risk: Consideration of admission was made due to complexity/risk. However, outpatient management is appropriate based on reassuring work-up, stable vitals, symptom control, and follow-up reliability.
PATHOLOGIES TO CONSIDER
Subdural hematoma, intracranial hemorrhage, hip fracture, cervical spine injury, vertebral compression fracture.
Past History
Past History
ED Past Medical History: Arrthythmia, CAD, COPD, HTN, Hypercholesterolemia, IDDM and Other
ED Past Surgical History: Cardiac, Orthopedic and Other
Social History
Tobacco: Former smoker
Alcohol: None
Drug: None
Personal:
Living: with family
Employment: Not employed
Phy Exam
Physical Exam
Physical Exam:
.
Course
Orders/Labs/Results
Orders:
Orders
02/13/25 11:03
CT Head W/o Iv Contrast Urgent
Comment:
Reason For Exam: fall
CR Lumbar Spine 2 Or 3 Views Urgent
Reason For Exam: low back pain
Hip, Right 2-3 Views [CR Hip - RT w/wo Pel 2-3 Vw*] Urgent
Comment:
Reason For Exam: right hip pain
Include a pelvis x-ray?: Yes
02/13/25 14:13
Urinalysis Reflex To Culture Urgent
Date Specimen was Collected: 02/13/25
Time Specimen was Collected: 14:03
Urine Microscopic Reflex Cult Urgent
Abnormal Lab Results
02/13/25
14:13
Urine Glucose 3+ A
(Negative)
Urine Albumin (Reflex) 1+ A
(Neg - Trace)
Vital Signs
Initial and Last Documented VS:
Initial Vital Signs
Temp Pulse Resp BP Pulse Ox
97.7 F 93 18 107/72 96
02/13/25 10:41 02/13/25 10:41 02/13/25 10:41 02/13/25 10:41 02/13/25 10:41
Last Documented Vital Signs
Temp Pulse Resp BP Pulse Ox
97.7 F 95 21 120/83 24
02/13/25 10:41 02/13/25 11:40 02/13/25 11:40 02/13/25 14:15 02/13/25 14:15
*Pulse Oximetry
SaO2: 96
Oxygen Mode of Delivery: Room air
Patient hypoxic: no
*Critical Care Note
Total Time (30-74mins, 75-104mins- exclusive of procedures): Not Applicable
ED Attending Note
-
Portions of this chart may have been created with voice recognition software.� Occasional wrong word or��sound alike� substitutions may have occurred due to the inherent limitations of voice recognition software.
Discharge Plan
Departure
Patient Disposition: Home (Routine Discharge)
Date of Disposition: 02/13/25
Time of Disposition: 13:20
Patient with high blood pressure during this ER visit?: No
Condition: Good
Discharge Problem:
Fall, Low back pain, Acute pain of right hip
Instructions: Preventing falls in adults, Hip Pain ED, Low back pain - Discharge instructions
Prescriptions:
No Action
prednisone 5 MG tablet
5 mg PO DAILY
tamsulosin 0.4 MG capsule
0.4 mg PO HS
atorvastatin [Lipitor] 40 MG tablet
40 mg PO HS
allopurinol 100 MG tablet
100 mg PO QPM
finasteride 5 MG tablet
5 mg PO DAILY
omega-3 acid ethyl esters [Lovaza] 1 GM capsule
1 gm PO TID
leucovorin calcium 10 mg Tablet
10 mg PO DIRECTED
Rx Instructions:
take 12 hour the day you take methotrexate injection
nortriptyline 50 mg Capsule
50 mg PO BID
duloxetine 60 mg Capsule,Delayed Release(Dr/Ec)
60 mg PO HS
therapeutic multivitamin Tablet
1 tab PO HS
methotrexate sodium 25 mg/mL Solution
25 mg SC SA
ascorbic acid (vitamin C) [Vitamin C] 500 mg Tablet
500 mg PO QPM
Xarelto 20 MG tablet
20 mg PO QPM
Visbiome 112.5 billion cell Capsule
1 cap PO BID
metformin 500 mg Tablet
500 mg PO QID
fluticasone propion-salmeterol [Advair Diskus] 250-50 mcg/dose Blister With Device
1 inh INHALATION R DAILY
tramadol 50 mg Tablet
50 mg PO TID
methenamine hippurate 1 gram Tablet
1 g PO BID
ergocalciferol (vitamin D2) 1,250 mcg (50,000 unit) Capsule
1,250 mcg PO TH
metoprolol succinate 50 mg tablet extended release 24 hr
25 mg PO DAILY
Rx Instructions:
hold for SBP<100 or HR<60
gabapentin [Neurontin] 800 MG tablet
800 mg PO QID
aspirin 81 mg Tablet,Delayed Release (Dr/Ec)
81 mg PO HS
lisinopril 10 mg Tablet
10 mg PO DAILY
insulin lispro [Humalog KwikPen Insulin] 100 unit/mL Insulin Pen
20 unit SC DAILY@1200
bumetanide 1 mg Tablet
1 mg PO DAILY Qty: 30 1RF
dapagliflozin propanediol 10 mg Tablet
10 mg PO DAILY Qty: 30 2RF
pantoprazole 40 mg tablet,delayed release (DR/EC)
40 mg PO BID 10 Days Qty: 60 1RF
Rx Instructions:
Change to once daily after 1 month
insulin lispro [Humalog KwikPen Insulin] 100 unit/mL Insulin Pen
25 unit SC QPM Qty: 0 0RF
insulin lispro [Humalog KwikPen Insulin] 100 unit/mL Insulin Pen
25 unit SC DAILY Qty: 0 0RF
insulin glargine [Lantus Solostar U-100 Insulin] 100 unit/mL (3 mL) Insulin Pen
40 unit SC HS Qty: 0 0RF
pantoprazole [Protonix] 40 mg tablet,delayed release (DR/EC)
40 mg PO BID Qty: 60 1RF
Rx Instructions:
Change to once daily after 30 days
Referrals:
NONE,* [Family Provider, Internal Medicine]
Activity Restrictions/Additional Instructions:
Follow up with primary care. Return for any concerns.
Interventions
Interventions:
*Risk Screen - Suicide Last Done: 02/13/25 10:41
*General Assessment Last Done: 02/13/25 10:41
*Neglect/Abuse Screening Last Done: 02/13/25 10:41
*ED COVID-19 Vaccine History Last Done: 02/13/25 10:41
ED-Musculoskeletal Assessment Last Done: 02/13/25 11:59
ED- Neurological Assessment Last Done: 02/13/25 11:59
ED-Skin Assessment Last Done: 02/13/25 11:59
Discharge Date and Time
Print Language: MALTESE
[2025-02-13 11:40] VITALS: BP 100/75
[2025-02-13 14:15] VITALS: BP 120/83
[2025-02-13 14:38] LABS: Urine Albumin 1+ (Neg - Trace); Urine Bilirubin Negative (Negative); Urine Character Clear (Clear); Urine Color Yellow; Urine Glucose 3+ (Negative); Urine Ketone Negative (Negative); Urine Leukocyte Negative (Negative); Urine Nitrite Negative (Negative); Urine Occult Blood Negative (Negative); Urine Specific Gravity 1.015 (<1.030); Urine Urobilinogen Negative (Neg - 1+)
[2025-02-13 14:53] LABS: Urine Red Blood Cell 0-2 /HPF (0-2); Urine Squamous Cell 16-20 /LPF (Few); Urine White Cell 0-2 /HPF (0-5)
[2025-02-13 14:54] LABS: Urine Mucus Few
[2025-02-13 15:00] VITALS: BP 113/99
== END 2025-02-13 15:51 | disposition home or self-care (01) ==
LOC: EMR 10:36
PROVIDERS: EMERGENCY PHYSICIAN Emergency Medicine
DX: M54.50 Low back pain, unspecified (principal); M25.551 Pain in right hip; R51.9 Headache, unspecified; W19.XXXA Unspecified fall, initial encounter; I48.91 Unspecified atrial fibrillation; Z79.01 Long term (current) use of anticoagulants; E11.9 Type 2 diabetes mellitus without complications; E78.00 Pure hypercholesterolemia, unspecified; I10 Essential (primary) hypertension; I25.10 Atherosclerotic heart disease of native coronary artery without angina pectoris; J44.9 Chronic obstructive pulmonary disease, unspecified; Z79.4 Long term (current) use of insulin; Z87.891 Personal history of nicotine dependence
CPT/HCPCS: 99284; 70450; 72100; 73502; 81003; 81015

== ENCOUNTER 2025-03-18 08:08 | Inpatient (IN) | payer MEDICARE, OTHER, SELFPAY ==
[2025-03-17] VITALS (8 sets, daily range): BP systolic 113–153; BP diastolic 63–98; BMI 37.9; BMI 38.0
[2025-03-17 13:01] LABS: Hematocrit 33.8 % (39.0-52.0); Hemoglobin 10.7 g/dL (13.0-18.0); Mean Corp Hgb Conc. 31.7 g/dL (33.0-37.0); Mean Corpuscular Volume 89.4 fL (80.0-94.0); Nucleated Red Blood Cells % 0 % (-); Platelet Count 311 10^3/uL (130-400); Red Cell Dist. Width 18.7 % (11.5-14.5)
[2025-03-17 13:30] LABS: COVID-19 Antigen Negative (Negative)
[2025-03-17 13:31] LABS: Blood Urea Nitrogen 19 mg/dl (9-20); Calcium 8.7 mg/dl (8.4-10.2); Carbon Dioxide 33 mmol/L (22-30); Chloride 95 mmol/L (98-107); Estimated Creatinine Clearance > 125 ml/min; Glucose 181 mg/dl (70-99); Sodium 133 mmol/L (135-145); eGFR > 60.00
[2025-03-17 14:11] LABS: Troponin I < 0.012 ng/ml
--- NOTE | 2025-03-17 14:24 | ED.GENMED ---
History of Present Illness
General
Chief Complaint: Urinary Symptoms
Source: patient
Exam Limitations: none
Time Seen by Provider: 03/17/25 12:11
Nursing documentation reviewed up to this point in time: agreed with
History of Present Illness
History of Present Illness:
79-year-old male past medical history of CAD, A-fib currently anticoagulated, COPD, hypertension, diabetes presenting to the emergency department today with concerns of urinary symptoms over the past few days. Claims of frequency urgency and
burning with urination. Also had an episode of chest pain just prior to arrival described as achy to the left side only with movement and positioning.
Past History
Past History
ED Past Medical History: Arrthythmia, CAD, COPD, HTN, Hypercholesterolemia, IDDM and Other
ED Past Surgical History: Cardiac, Orthopedic and Other
Social History
Tobacco: Former smoker
Alcohol: None
Drug: None
Personal:
Living: with family
Employment: Not employed
Review of Systems
Review of Systems
Allergies reviewed?: Yes
All Other Systems: ROS reviewed and negative except as documented in HPI and ROS
Phy Exam
Physical Exam
Physical Exam:
GENERAL: Alert , in no apparent distress
EYE: pupils equal and reactive
NECK: Supple, no significant adenopathy.
ENT: o/p clr, mmm.
CARDIAC: Regular rate and rhythm .
LUNGS: Clear breath sounds bilaterally, no acute respiratory distress, no wheezes/rales/rhonchi
ABDOMEN: Soft, without focal tenderness, no r/g, no cvat
NEUROLOGICAL: Alert and oriented, no focal neuro deficits
SKIN: Warm and dry, skin intact.
MUSCULOSKELETAL: No edema, well perfused.
PSYCH: Normal and appropriate interaction.
Course
Orders/Labs/Results
Orders:
Orders
03/17/25 12:54
Basic Metabolic Panel Urgent
Complete Blood Count/With Diff Urgent
03/17/25 13:05
COVID-19 Antigen Urgent
Source: Nasal Swab
Influenza A+B Rapid Molecular Urgent
VISHAL Source: Nasal Swab
Specimen Description:
03/17/25 13:34
EKG [Electrocardiogram (*1)] Urgent
Reason for Study: Chest Pain
EKG- Treatment ONCE
Chest [CR Chest - 2 Views ] Urgent
Comment:
Reason For Exam: cp left sided
03/17/25 13:40
Troponin I Urgent
03/17/25 14:03
Lactic Acid Urgent
03/17/25 14:38
Urinalysis Reflex To Culture Urgent
Date Specimen was Collected: 03/17/25
Time Specimen was Collected: 11:26
Urine Microscopic Reflex Cult Urgent
Urine Culture Urgent
VISHAL Source: U
Specimen Description:
Obtained by: Random
Date Specimen was Collected: 03/17/25
Time Specimen was Collected: 11:26
03/17/25 15:12
Amjyc-Dqwh-Dbfupdz Urgent
Potassium Urgent
03/17/25 15:22
CefTRIAXone [Rocephin] 2,000 mg IV NOW STA
03/17/25 15:23
0.9% Sodium Chloride 500 ml [Nss] 500 ml IV BOLUS
03/17/25 15:28
Sterile Water [Sterile Water For Injection] 20 ml .ROUTE .STK-MED
Abnormal Lab Results
03/17/25 03/17/25 03/17/25
12:54 14:38 15:12
WBC 13.5 H 10^3/uL
(4.8-10.8)
RBC 3.78 L 10^6/uL
(4.70-6.10)
Hgb 10.7 L g/dL
(13.0-18.0)
Hct 33.8 L %
(39.0-52.0)
MCHC 31.7 L g/dL
(33.0-37.0)
RDW 18.7 H %
(11.5-14.5)
Abs Immat Gran (auto) 0.1 H 10^3/uL
(0-0.05)
Absolute Neuts (auto) 11.9 H 10^3/uL
(1.4-6.5)
Absolute Lymphs (auto) 1.1 L 10^3/uL
(1.2-3.4)
Neutrophils % 88.7 H %
(42.2-75.2)
Lymphocytes % 8.3 L %
(20.5-51.1)
Sodium 133 L mmol/L
(135-145)
Chloride 95 L mmol/L
(98-107)
Carbon Dioxide 33 H mmol/L
(22-30)
Glucose 181 H mg/dl
(70-99)
Alkaline Phosphatase 347 H U/L
(38-126)
Albumin 3.2 L g/dl
(3.5-5.0)
Ur Occult Blood Reflex 4+ A
(Negative)
Leukocyte Esterase Rfl 3+ A
(Negative)
Urine RBC 30-40 A /HPF
(0-2)
Urine WBC (Reflex) 26-30 A /HPF
(0-5)
Urine Bacteria (Reflex) Many A
(Negative)
Urine Albumin (Reflex) 2+ A
(Neg - Trace)
03/17/25 12:54
03/17/25 15:12
Vital Signs
Initial and Last Documented VS:
Initial Vital Signs
Temp Pulse Resp BP Pulse Ox
99.7 F 112 18 137/84 96
03/17/25 11:23 03/17/25 11:23 03/17/25 11:23 03/17/25 11:23 03/17/25 11:23
Last Documented Vital Signs
Temp Pulse Resp BP Pulse Ox
98.8 F 119 17 138/79 93
03/17/25 12:17 03/17/25 14:01 03/17/25 14:01 03/17/25 14:01 03/17/25 14:26
MDM/Problems Addressed
MDM/Problems Addressed:
79-year-old male presenting to the emergency department today with concerns of urinary symptoms over the past few days. Additionally an episode of chest pain just prior to arrival described as left-sided achiness specifically with movement and
positioning. On arrival patient tachycardic patient in atrial fibrillation is anticoagulated does have a long history of A-fib. Clip is here urinalysis does appear to be consistent with UTI. He also does have a slight white count. Heart rate is
elevated. Concern for some degree of systemic response plan to treat with IV antibiotics and monitoring with admission to the hospital considering multiple comorbidities and immunosuppression history.
*Pulse Oximetry
SaO2: 93
Oxygen Mode of Delivery: Room air
Patient hypoxic: no (93 )
*Critical Care Note
Total Time (30-74mins, 75-104mins- exclusive of procedures): Not Applicable
ED Attending Note
-
Portions of this chart may have been created with voice recognition software.� Occasional wrong word or��sound alike� substitutions may have occurred due to the inherent limitations of voice recognition software.
Discharge Plan
Departure
Patient Disposition: Admit
Date of Disposition: 03/17/25
Time of Disposition: 16:00
Admit to: Med/Surg
Admit to doctor: Catrinay
Presentation/result/management discussed w/ accepting MD/DO: Hospitalist
Patient with high blood pressure during this ER visit?: No
Condition: Good
Covid-19: Not Applicable
Discharge Problem:
Acute UTI
Prescriptions:
No Action
prednisone 5 MG tablet
5 mg PO DAILY
tamsulosin 0.4 MG capsule
0.4 mg PO HS
atorvastatin [Lipitor] 40 MG tablet
40 mg PO HS
allopurinol 100 MG tablet
100 mg PO QPM
finasteride 5 MG tablet
5 mg PO DAILY
omega-3 acid ethyl esters [Lovaza] 1 GM capsule
1 gm PO TID
leucovorin calcium 10 mg Tablet
10 mg PO DIRECTED
Rx Instructions:
take 12 hour the day you take methotrexate injection
nortriptyline 50 mg Capsule
50 mg PO BID
duloxetine 60 mg Capsule,Delayed Release(Dr/Ec)
60 mg PO HS
therapeutic multivitamin Tablet
1 tab PO HS
methotrexate sodium 25 mg/mL Solution
25 mg SC SA
ascorbic acid (vitamin C) [Vitamin C] 500 mg Tablet
500 mg PO QPM
Xarelto 20 MG tablet
20 mg PO QPM
Visbiome 112.5 billion cell Capsule
1 cap PO BID
metformin 500 mg Tablet
500 mg PO QID
fluticasone propion-salmeterol [Advair Diskus] 250-50 mcg/dose Blister With Device
1 inh INHALATION R DAILY
tramadol 50 mg Tablet
50 mg PO TID
methenamine hippurate 1 gram Tablet
1 g PO BID
ergocalciferol (vitamin D2) 1,250 mcg (50,000 unit) Capsule
1,250 mcg PO TH
metoprolol succinate 50 mg tablet extended release 24 hr
25 mg PO DAILY
Rx Instructions:
hold for SBP<100 or HR<60
gabapentin [Neurontin] 800 MG tablet
800 mg PO QID
aspirin 81 mg Tablet,Delayed Release (Dr/Ec)
81 mg PO HS
lisinopril 10 mg Tablet
10 mg PO DAILY
insulin lispro [Humalog KwikPen Insulin] 100 unit/mL Insulin Pen
20 unit SC DAILY@1200
bumetanide 1 mg Tablet
1 mg PO DAILY Qty: 30 1RF
dapagliflozin propanediol 10 mg Tablet
10 mg PO DAILY Qty: 30 2RF
pantoprazole 40 mg tablet,delayed release (DR/EC)
40 mg PO BID 10 Days Qty: 60 1RF
Rx Instructions:
Change to once daily after 1 month
insulin lispro [Humalog KwikPen Insulin] 100 unit/mL Insulin Pen
25 unit SC QPM Qty: 0 0RF
insulin lispro [Humalog KwikPen Insulin] 100 unit/mL Insulin Pen
25 unit SC DAILY Qty: 0 0RF
insulin glargine [Lantus Solostar U-100 Insulin] 100 unit/mL (3 mL) Insulin Pen
40 unit SC HS Qty: 0 0RF
pantoprazole [Protonix] 40 mg tablet,delayed release (DR/EC)
40 mg PO BID Qty: 60 1RF
Rx Instructions:
Change to once daily after 30 days
Referrals:
UNKNOWN - PT DOES,NOT KNOW [Family Provider]
Interventions
Interventions:
*Risk Screen - Suicide Last Done: 03/17/25 11:23
*General Assessment Last Done: 03/17/25 12:17
*Neglect/Abuse Screening Last Done: 03/17/25 12:17
*ED- Fall Risk Assessment Last Done: 03/17/25 12:17
*ED COVID-19 Vaccine History Last Done: 03/17/25 12:17
ED-Male Genitourinary Assessment Last Done: 03/17/25 12:17
Discharge Date and Time
Print Language: WOLOF
[2025-03-17 14:54] LABS: Urine Character Slightly Cloudy (Clear)
[2025-03-17 15:02] LABS: Urine Squamous Cell 0-2 /LPF (Few)
[2025-03-17 15:03] LABS: Urine Red Blood Cell 30-40 /HPF (0-2); Urine White Cell 26-30 /HPF (0-5)
[2025-03-17 15:33] LABS: ALT (SGPT) 43 U/L (0-50); AST (SGOT) 35 U/L (17-59); Albumin 3.2 g/dl (3.5-5.0); Alkaline Phosphatase 347 U/L (38-126); Potassium 4.9 mmol/L (3.5-5.1); Total Protein 6.7 g/dl (6.3-8.2)
[2025-03-17] MEDS: ROCEPHIN 2000 MG IV (15:40)
[2025-03-17] MEDS: NSS 500 IV (15:40)
--- NOTE | 2025-03-17 18:30 | W.PN.UPDATE ---
Update Note
Progress Note Update
Seen and examined by me independently in collaboration with the vice president of academic affairs.
Past medical history/social history/medication/allergies reviewed.
Lab data and imaging data reviewed.
Pt with prior multiple UTIs, on BPH meds, on immunomodulating agent MTX for RA, and DM on insulin presents with dyuria , foul smelling and progressive weakness. He also has chills with this. He has positive urinalysis and leukocytosis. His heart
rate is up as well. Afebrile and blood pressure okay.
Clinical case is of a UTI with sepsis. Based on previous urine culture data I will start him on IV ceftriaxone. Follow bladder scan for any retention. Consider ID consultation with recurrent UTIs.
Patient was also complaining of dysuria and a radiating pain to the left groin/thigh. He has a prior history of stones so we will request a CT of the abdomen pelvis without contrast for stone protocol.
He has a chronic hypoxic respite insufficiency and 2 L during the day and 3 L at at bedtime. He is without any shortness of breath. Continue with his home oxygen.
Known to have A-fib now with mildly elevated RVR from sepsis. Fall on the telemetry. Continue with his home medication including anticoagulation.
He wishes to be full code for any immediate reversible conditions or situations but he would not want to be on ventilator for prolonged period of times.
--- NOTE | 2025-03-17 19:52 | HPS.HSE ---
Family Physician
-
Family Physician: NOT KNOW UNKNOWN - PT DOES
Chief Complaint
-
Pain while on micturation
History of Present Illness
79 M with past k/h/o CAD, Afib, COPD, HTN, DM on Insulin dependent presented to ER with burning and painful micturition for the past 3 days. it started all of a sudden,like a shooting pain radiating to left side foot,not relieved by NSAID
associated with increased frequency of micturition, fever, chills, experiencing a delirium-like state. not associated with abd pain. He had similar episodes of UTI for twice within 6 months.
Chest pain- he is currently experiencing at his left side sharp pain, radiating towards left side back of the shoulder, sudden in onset, with spontaneous relief. He experienced similar pain before. He does take 2 l home oxygen at daytime, 3 l night
time.
Medical History
Past Medical History
Past Medical History: Reports Arrhythmia, CAD, COPD, Hypercholesterolemia, IDDM and Other (Recurrent UTI, BPH )
Past Surgical History: Reports Orthopedic
Social History
Tobacco: Former Smoker
Alcohol: Occasional
Drug: None
Family History
Family History: Not pertinent
Allergies / Home Medications
Allergies
Allergy/AdvReac Type Severity Reaction Status Date / Time
alprazolam (From Xanax) Allergy maritza SOB Verified 03/17/25 11:25
amoxicillin (From Augmentin) Allergy Unknown Verified 03/17/25 11:25
anakinra Allergy Unknown Verified 03/17/25 11:25
celecoxib (From Celebrex) Allergy hivsusan, SOB Verified 03/17/25 11:25
cisapride (From Propulsid) Allergy Unknown Verified 03/17/25 11:25
clarithromycin (From Biaxin) Allergy SOB hives Verified 03/17/25 11:25
clavulanic acid (From Allergy Unknown Verified 03/17/25 11:25
Augmentin)
clindamycin HCl (From Allergy Hives, SOB Verified 03/17/25 11:25
Cleocin)
codeine Allergy Unknown Verified 03/17/25 11:25
dapagliflozin (From Farxiga) Allergy change in Verified 03/17/25 11:25
mental
status
famotidine (From Pepcid) Allergy hives SOB Verified 03/17/25 11:25
hydrocodone (From Vicodin) Allergy Unknown Verified 03/17/25 11:25
hydroxychloroquine sulfate Allergy hives, SOB Verified 03/17/25 11:25
(From Plaquenil)
Iodinated Contrast Media Allergy Hives Verified 03/17/25 11:25
levofloxacin (From Levaquin) Allergy Unknown Verified 03/17/25 11:25
Penicillins Allergy Hives Verified 03/17/25 11:25
Sulfa (Sulfonamide Allergy Unknown Verified 03/17/25 11:25
Antibiotics)
Home Medications
prednisone 5 mg tablet 5 mg PO DAILY RA 12/23/14
tamsulosin 0.4 mg capsule 0.4 mg PO QPM Urinary Issue 12/23/14
atorvastatin 40 mg tablet (Lipitor) 40 mg PO QPM High Cholesterol 07/01/19
finasteride 5 mg tablet 5 mg PO DAILY Urinary Issue 07/22/19
omega-3 acid ethyl esters 1 gram capsule (Lovaza) 1 gm PO BID High Cholesterol 07/22/19
leucovorin calcium 10 mg tablet 10 mg PO DIRECTED rheumatoid arthritis 04/17/23
duloxetine 60 mg capsule,delayed release 60 mg PO QPM Depression 06/05/24
ascorbic acid (vitamin C) 500 mg tablet (Vitamin C) 500 mg PO QPM Supplement 09/10/24
methotrexate sodium 25 mg/mL injection solution 25 mg SC SA RA 09/10/24
rivaroxaban 20 mg tablet (Xarelto) 20 mg PO QPM Blood Clot Prevention/Tx 09/10/24
therapeutic multivitamin 1 tab PO QPM Supplement 09/10/24
Lactobac no.2-Bifidobac no.1-S. thermo 112.5 billion cell capsule (Visbiome) 1 cap PO BID Supplement 11/04/24
aspirin 81 mg tablet,delayed release 81 mg PO QPM Heart Disease/Condition 02/04/25
ergocalciferol (vitamin D2) 1,250 mcg (50,000 unit) capsule 1,250 mcg PO TH Supplement 02/04/25
fluticasone 250 mcg-salmeterol 50 mcg/dose blistr powdr for inhalation (Advair Diskus) 1 inh inhalation R BID Lung/Breathing Issues 02/04/25
gabapentin 800 mg tablet (Neurontin) 800 mg PO TID Neurological Condition 02/04/25
lisinopril 10 mg tablet 10 mg PO DAILY 02/04/25
methenamine hippurate 1 gram tablet 1 g PO QPM Infection 02/04/25
metoprolol succinate 50 mg tablet,extended release 24 hr 25 mg PO DAILY Blood Pressure 02/04/25
tramadol 50 mg tablet 50 mg PO TID Pain 02/04/25
Metamucil 2 tsp PO DAILY 03/17/25
bumetanide 1 mg tablet 1 mg PO Q48H Heart Failure 03/17/25
esomeprazole magnesium 20 mg capsule,delayed release (Nexium) 20 mg PO BID 03/17/25
insulin glargine 100 unit/mL subcutaneous solution (Lantus U-100 Insulin) 40 unit SC HS 03/17/25
insulin lispro 100 unit/mL subcutaneous solution (Humalog U-100 Insulin) 12 unit SC AC 03/17/25
nortriptyline 25 mg capsule 25 mg PO BID 03/17/25
Allergies reflects when Allergies were last updated in [employer].
Home Medications with original date entered in [employer]
Allergy/Medication List:
Allergies
Allergy/AdvReac Type Severity Reaction Status Date / Time
alprazolam (From Xanax) Allergy CHUCHO salas Verified 03/17/25 11:25
amoxicillin (From Augmentin) Allergy Unknown Verified 03/17/25 11:25
anakinra Allergy Unknown Verified 03/17/25 11:25
celecoxib (From Celebrex) Allergy hives, SOB Verified 03/17/25 11:25
cisapride (From Propulsid) Allergy Unknown Verified 03/17/25 11:25
clarithromycin (From Biaxin) Allergy SOB, hives Verified 03/17/25 11:25
clavulanic acid (From Allergy Unknown Verified 03/17/25 11:25
Augmentin)
clindamycin HCl (From Allergy Hives, SOB Verified 03/17/25 11:25
Cleocin)
codeine Allergy Unknown Verified 03/17/25 11:25
dapagliflozin (From Farxiga) Allergy change in Verified 03/17/25 11:25
mental
status
famotidine (From Pepcid) Allergy hives SOB Verified 03/17/25 11:25
hydrocodone (From Vicodin) Allergy Unknown Verified 03/17/25 11:25
hydroxychloroquine sulfate Allergy hives, SOB Verified 03/17/25 11:25
(From Plaquenil)
Iodinated Contrast Media Allergy Hives Verified 03/17/25 11:25
levofloxacin (From Levaquin) Allergy Unknown Verified 03/17/25 11:25
Penicillins Allergy Hives Verified 03/17/25 11:25
Sulfa (Sulfonamide Allergy Unknown Verified 03/17/25 11:25
Antibiotics)
Home Medications
prednisone 5 mg tablet 5 mg PO DAILY RA 12/23/14
tamsulosin 0.4 mg capsule 0.4 mg PO QPM Urinary Issue 12/23/14
atorvastatin 40 mg tablet (Lipitor) 40 mg PO QPM High Cholesterol 07/01/19
finasteride 5 mg tablet 5 mg PO DAILY Urinary Issue 07/22/19
omega-3 acid ethyl esters 1 gram capsule (Lovaza) 1 gm PO BID High Cholesterol 07/22/19
leucovorin calcium 10 mg tablet 10 mg PO DIRECTED rheumatoid arthritis 04/17/23
duloxetine 60 mg capsule,delayed release 60 mg PO QPM Depression 10/09/24
ascorbic acid (vitamin C) 500 mg tablet (Vitamin C) 500 mg PO QPM Supplement 09/10/24
methotrexate sodium 25 mg/mL injection solution 25 mg SC SA RA 09/10/24
rivaroxaban 20 mg tablet (Xarelto) 20 mg PO QPM Blood Clot Prevention/Tx 09/10/24
therapeutic multivitamin 1 tab PO QPM Supplement 09/10/24
Lactobac no.2-Bifidobac no.1-S. thermo 112.5 billion cell capsule (Visbiome) 1 cap PO BID Supplement 11/04/24
aspirin 81 mg tablet,delayed release 81 mg PO QPM Heart Disease/Condition 02/04/25
ergocalciferol (vitamin D2) 1,250 mcg (50,000 unit) capsule 1,250 mcg PO TH Supplement 02/04/25
fluticasone 250 mcg-salmeterol 50 mcg/dose blistr powdr for inhalation (Advair Diskus) 1 inh inhalation R BID Lung/Breathing Issues 02/04/25
gabapentin 800 mg tablet (Neurontin) 800 mg PO TID Neurological Condition 02/04/25
lisinopril 10 mg tablet 10 mg PO DAILY 02/04/25
methenamine hippurate 1 gram tablet 1 g PO QPM Infection 02/04/25
metoprolol succinate 50 mg tablet,extended release 24 hr 25 mg PO DAILY Blood Pressure 02/04/25
tramadol 50 mg tablet 50 mg PO TID Pain 02/04/25
Metamucil 2 tsp PO DAILY 03/17/25
bumetanide 1 mg tablet 1 mg PO Q48H Heart Failure 03/17/25
esomeprazole magnesium 20 mg capsule,delayed release (Nexium) 20 mg PO BID 03/17/25
insulin glargine 100 unit/mL subcutaneous solution (Lantus U-100 Insulin) 40 unit SC HS 03/17/25
insulin lispro 100 unit/mL subcutaneous solution (Humalog U-100 Insulin) 12 unit SC AC 03/17/25
nortriptyline 25 mg capsule 25 mg PO BID 03/17/25
Review of Systems
-
History Source: Patient
Constitutional: Reports Fever and Chills
Abdomen/GI: Reports Abdominal Pain (lower abdominal pain)
: Reports See HPI, Dysuria, Frequency and Difficulty Voiding
Musculoskeletal: Reports Other (weakness)
Skin: Reports No Symptoms
Neurological: Reports No Symptoms
Endocrine: Reports No Symptoms
Hematologic/Lymphatic: Reports No Symptoms
Psych: Reports No Symptoms
Physical Exam
Vital Signs
Vital Signs
Temp Pulse Resp BP Pulse Ox
98.8 F 115 22 138/74 97
03/17/25 12:17 03/17/25 17:45 03/17/25 17:45 03/17/25 17:00 03/17/25 17:15
Physical Exam
General: No Apparent Distress, Fever and Morbidly Obese
HEENT: Oxygen (2l day time; 3l night time at home )
Respiratory: Decreased Breath Sounds (left side lower lobe)
Cardiac: S1/S2 and Regular Rhythm
GI: Non Distended and Tender (supra pubic tenderness+)
Genito-urinary: No costovertebral tender
Neuro: AO x 3
Hematologic/Lymphatic: No Lymphadenopathy
Psych: Calm
Laboratory Results
-
03/17/25 12:54
03/17/25 15:12
Laboratory Results
Lactic Acid 1.5 mmol/L (0.7-2.0) 03/17/25 14:03
Total Bilirubin 1.1 mg/dl (0.2-1.3) 03/17/25 15:12
AST 35 U/L (17-59) 03/17/25 15:12
ALT 43 U/L (0-50) 03/17/25 15:12
Alkaline Phosphatase 347 U/L (38-126) H 03/17/25 15:12
Troponin I < 0.012 ng/ml 03/17/25 13:40
Impression/Plan
-
IMPRESSION:
79 M recurrent UTI, AFib, COPD, RA
#Symptomatic Recurrent UTI:
-pt with prior multiple UTIs, on BPH meds,
Urinalysis - moderate positive , Urine bacteria, Urine occult blood positive, Urine bacterial reflex positive
Urine culture pending
-Previous urine culture- serratia positive
-positive urinalysis and leukocytosis, Tachypneic, Tachycardia meets sepsis criteria .
-Afebrile and blood pressure normal.
-Based on previous urine culture data I will start him on IV ceftriaxone.
- Ordered for bladder scan for any retention.
-ID consultation required with recurrent UTIs history.
-CT SCAN PELVIS/ABDOMEN required for the future to rule out cystitis, other causes for lower abdominal pain.
#RA
On immunomodulating agent MTX and leucovorin.
#BPH:
Obstruction might be the cause for recurrent UTI current presentation
Continue Finasteride 5 mg, Tamsulosin 0.4 mg
#Permanent A-fib
mildly elevated RVR presentation because of the Sepsis.
- �Continue Xarelto (rivaroxaban 20 mg), metoprolol succinate 50 mg for rate control
#IDDM:
Insulin Sliding scale (low). Progressive weakness.
DM diet management
# COPD:
� Continue fluticosone, salmeterol 250-50 mcg,� prednisone 5 mg
chronic hypoxic respite insufficiency with 2 l nasal cannula for day time and 3 l for night time at home.
#HTN and CAD:
Lisinopril 10 mg, Aspirin 81 mg continuing
# Hypercholesterolemia:
Atorvostatin 40 mg
Disposition: Home
DVT Prophylaxis: Lovenax sc
[2025-03-17 21:36] LABS: Glucose - Point of Care 252 mg/dl (70-99)
[2025-03-17] MEDS: NEURONTIN 800 MG PO (22:53)
[2025-03-17] MEDS: FLOMAX 0.4 MG PO (22:53)
[2025-03-17] MEDS: LIPITOR 40 MG PO (22:53)
[2025-03-17] MEDS: ZYLOPRIM 100 MG PO (22:53)
[2025-03-17] MEDS: ASPIR LOW (ENTERIC COATED) 81 MG PO (22:53)
[2025-03-17] MEDS: PAMELOR 25 MG PO (22:53)
[2025-03-17] MEDS: CYMBALTA DELAYED RELEASE 60 MG PO (22:53)
[2025-03-17] MEDS: XARELTO 20 MG PO (22:53)
[2025-03-17] MEDS: LANTUS 0.4 UNITS SC (22:54)
--- NOTE | 2025-03-18 02:25 | DOWNTIME ---
There was a tarpipe Client [employer] Downtime on 03/18/2025 from 0100 to 03/18/2025 at 0220. Downtime documentation of patient's care, including medication administrations, has been reconciled in the electronic record per guidelines. Refer to the
patient's paper chart under the miscellaneous tab to see printed paper medication records and downtime forms.
--- NOTE | 2025-03-18 06:45 | W.PN.HOSP.TC ---
Addendum entered and electronically signed by Colby Fountain MD 03/18/25 13:47:
Seen and examined by me independently in collaboration with the medical administrative specialist.
Lab data and imaging data reviewed.
Addendum as below :
Feels improved from dysuria standpoint.
Afebrile. Blood pressure in fact on the higher side. Heart rate 105 regular. White count improving.
CT of the abdomen pelvis shows no obstructing renal stones.
Await urine culture
Continue with ceftriaxone IV
Patient also complains of shortness of breath more than his baseline. He normally uses home O2 during the day. Denies any chest pain to me today. Denies any palpitations.
Hard to assess JVD because of thick neck. He is bilateral lower extremity edema 1+.
Chest without wheeze but bibasal crackle.
Weight compared to last admission is higher.
Patient with known atrial fibrillation now currently with the RVR in 100s and he has a prior history of CHF. Clinical concern is of CHF. Check chest x-ray. Check BNP. Start on IV Lasix. Hold his home dose of Bumex.
Will place him on telemetry for heart rate control.
Clinically without any reactive airway so doubt COPD exacerbation. No issues with cough or sore throat.
Total time spent on today's encounter was 52 minutes which included time spent in counseling the patient/family regarding diagnosis and treatment plan as listed above, goals of care, and symptom management. Case was discussed with nursing staff,
specialists, and care coordinators/case management. All labs and imaging personally reviewed by me. Remainder the time spent in detailed review of previous records, lab data, imaging, and other medical provider documentation.
Original Note:
Today's Communication/Plan
-
Bladder scan
Telemetry monitoring
cbc, cmp
Started Lasix 40 mg PO
Bumex on hold
Assessment / Plan
Assessment / Plan
79 yr M with k/h/o CHF, Recurrent UTI presented with dysuria.
#Symptomatic Recurrent UTI:
-pt with prior multiple UTIs, on BPH medications.
Today he is tachycardiac, tachypneic
Urinalysis - moderate positive , Urine bacteria, Urine occult blood positive, Urine bacterial reflex positive
Urine culture pending
-Previous urine culture- serratia positive
-positive urinalysis and leukocytosis, Tachypneic, Tachycardia meets sepsis criteria .
-Afebrile and blood pressure normal.
-Based on previous urine culture data I will start him on IV ceftriaxone.
- Ordered for bladder scan for any retention.
-ID consultation required with recurrent UTIs history.
-Ceftriaxone 1 g iv (day2)
-SIRS was present on admission and is now resolved
CT SCAN PELVIS/ABDOMEN (03/17):
1 Questionable cystitis. No other convincing acute process in the abdomen or pelvis.
2 Lower Chest: Moderate left and [id number] right pleural effusions with associated compressive atelectasis, new/progressed from prior.
3 Small to moderate pericardial effusion, new from prior.
4 Coronary artery calcifications re demonstrated.
# Acute HFpEF:
-Pt kept on telemetry and ordered Pro BNP.
-Last echocardiogram on February 05 2025 showed with preserved LVEF ( EF 55-60%), dilated RV though unable to assess RV systole.
-Transitioned to IV Lasix 40 mg today.
-Hold Bumex 1 mg daily.
-Resumed Lasix 40 mg BID PO.
-Continue Farziga 10 mg PO daily.
On 03/17 Chest x ray:
1. opacity within both lower lungs, greater on the left compared to the right. Findings are most suggestive of atelectasis, although pneumonia not excluded.
2. Slight blunting of the posterior costophrenic angles bilaterally, and small bilateral pleural effusions are possible.
3. Cardiomegaly with no convincing evidence for active vascular congestion.
#HTN and CAD:
Lisinopril 10 mg, Aspirin 81 mg continuing
#RA
On immunomodulating agent MTX and leucovorin.
#BPH:
Obstruction might be the cause for recurrent UTI current presentation
Continue Finasteride 5 mg, Tamsulosin 0.4 mg
#Permanent A-fib
mildly elevated RVR presentation because of the Sepsis.
- �Continue Xarelto (rivaroxaban 20 mg), metoprolol succinate 50 mg for rate control
#IDDM:
Insulin Sliding scale (low). Progressive weakness.
DM diet management
# COPD:
� Continue fluticosone, salmeterol 250-50 mcg,� prednisone 5 mg
chronic hypoxic respite insufficiency with 2 l nasal cannula for day time and 3 l for night time at home.
# Hypercholesterolemia:
Atorvostatin 40 mg
Disposition: Home
DVT Prophylaxis: Lovenax sc
Anticipated Discharge: > 48 hours
Subjective/Interval History
-
Date of Service: March 18, 2025
Patient feels shortness of breath.' I have to catch my breath even while i am talking'. He is currently on 4 L nasal cannula oxygen.
His painful micturition got improved comparing from yesterday. But he had 4 times frequency overnight but with less amount of urine, he mentioned.
He denies chest pain, palpitation, fever, chills, dizziness.
Objective Data
-
Labs:
03/18/25 07:21
Laboratory Results
Lactic Acid 1.5 mmol/L (0.7-2.0) 03/17/25 14:03
Total Bilirubin 1.1 mg/dl (0.2-1.3) 03/17/25 15:12
AST 35 U/L (17-59) 03/17/25 15:12
ALT 43 U/L (0-50) 03/17/25 15:12
Alkaline Phosphatase 347 U/L (38-126) H 03/17/25 15:12
Troponin I < 0.012 ng/ml 03/17/25 13:40
Laboratory Results
Vital Signs:
Vital Signs
Temp Pulse Resp BP Pulse Ox
98.7 F 98 24 153/98 98
03/17/25 23:00 03/17/25 23:00 03/17/25 23:00 03/17/25 23:00 03/17/25 23:00
I&O
03/16/25 03/17/25 03/18/25
06:59 06:59 06:59
Output Total 1090 / 1090
Balance -1090 / -1090
Review of Systems
-
History Source: Patient
Respiratory: Reports Trouble Breathing
Genitourinary: Reports Dysuria (improved comparimg from yesterday) and Urgency
Musculoskeletal: Reports No Symptoms
Skin: Reports No Symptoms
Neuro: Reports No Symptoms
Endocrine: Reports No Symptoms
Hematologic / Lymphatic: Reports No Symptoms
Allergy / Immunology: Reports No Symptoms
Physical Exam
-
HEENT: Moist Mucous Membranes
Respiratory: Decreased Breath Sounds (left side )
Cardiac: Regular Rhythm and S1/S2
GI: Soft, Nontender, Nondistended and Normal Bowel Sounds (hyperechoic )
Genito-urinary: No Costovertebral Tender
Skin: Warm
Neuro: AO x 3
Hematologic / Lymphatic: No Lymphadenopathy
Psych: Calm
[2025-03-18 08:02] LABS: Glucose - Point of Care 214 mg/dl (70-99)
[2025-03-18 08:02] LABS: Hematocrit 32.4 % (39.0-52.0); Hemoglobin 10.2 g/dL (13.0-18.0); Mean Corp Hgb Conc. 31.5 g/dL (33.0-37.0); Mean Corpuscular Volume 89.3 fL (80.0-94.0); Nucleated Red Blood Cells % 0 % (-); Platelet Count 311 10^3/uL (130-400); Red Cell Dist. Width 18.5 % (11.5-14.5)
[2025-03-18] MEDS: ADVAIR HFA 115/21 MCG INHALER 2 PUFF INH ×2 (08:02→19:22)
[2025-03-18 08:21] VITALS: BP 165/98
[2025-03-18] MEDS: NOVOLOG FLEXPEN-LOW RESISTANCE 2 UNITS SC ×2 (08:24→12:17)
[2025-03-18] MEDS: NOVOLOG FLEXPEN 12 UNITS SC ×3 (08:24→17:29)
[2025-03-18] MEDS: DELTASONE 5 MG PO (08:25)
[2025-03-18] MEDS: BUMEX 1 MG PO (08:25)
[2025-03-18] MEDS: PAMELOR 25 MG PO ×2 (08:25→21:16)
[2025-03-18] MEDS: PROSCAR 5 MG PO (08:26)
[2025-03-18] MEDS: FARXIGA 10 MG PO (08:26)
[2025-03-18] MEDS: TOPROL XL 25 MG PO (08:26)
[2025-03-18] MEDS: ZESTRIL 10 MG PO (08:26)
[2025-03-18] MEDS: NEURONTIN 800 MG PO ×3 (08:26→21:17)
[2025-03-18 08:32] LABS: ALT (SGPT) 42 U/L (0-50); AST (SGOT) 29 U/L (17-59); Albumin 3.3 g/dl (3.5-5.0); Alkaline Phosphatase 322 U/L (38-126); Blood Urea Nitrogen 17 mg/dl (9-20); Calcium 8.6 mg/dl (8.4-10.2); Carbon Dioxide 35 mmol/L (22-30); Chloride 97 mmol/L (98-107); Estimated Creatinine Clearance 110 ml/min; Glucose 209 mg/dl (70-99); Potassium 5.1 mmol/L (3.5-5.1); Sodium 136 mmol/L (135-145); Total Protein 7.0 g/dl (6.3-8.2); eGFR > 60.00
--- NOTE | 2025-03-18 10:41 | CM ---
Patient seen bedside. IA completed. patient switched from OBS to inpatient this am, IMM provided.
Patient lives in an in-law suite attached to daughters home.
Patient has 4 steps to enter suite, has a stair glide.
Patient has a RW and Cane.
Patient has CPAP and is on home o2-2l during the day, 3 liters at night. He has a portable concentrator that daughter will bring on d/c. He is not sure who of the name of his oxygen provider.
Daughter assists with ADLs, patient is current with [facility] and would like to resume on d/c.
Daughter will transport home.
Requested PT/OT eval to assess for additional needs.
PCP: unsure of name, it is a doctor that comes to the home.
[facility]: [facility]
Plan: home with [facility]
[2025-03-18 12:09] LABS: Glucose - Point of Care 202 mg/dl (70-99)
--- NOTE | 2025-03-18 13:33 | WOUNDNOTE ---
R 2 ND TOE
--- NOTE | 2025-03-18 13:35 | WOUNDNOTE ---
WO RN note: Patient admitted with UTI
See H&P for complete history.
PMH: IDDM,COPD, A FIB,CAD,HTN and Buttock/sacral PI's.
Wound Location and type/assessment: Patient admitted with: nearly healed stage 2 PI's on buttocks and sacrum. Silicone foam in use and patient using zinc oxide at home. R 2nd toe with intact scab, skin warm and dry, + palpable pedal pulses. Patient
able to turn self in bed.
Appetite: Good.
Pressure redistribution devices in place: Versa care air, pillow under calves.
Plan: Sacral silicone foam to continue and foams on heels to protect. R 2nd toe open to air. Pressure ulcer prevention measures reviewed with patient, states he understands.
Will confirm orders with hospitalist and update nurse Lee.
Updated care plan and will follow as needed.
Note to case management of equipment requested for discharge: none.
[2025-03-18 16:11] VITALS: BP 105/67
[2025-03-18] MEDS: LASIX 40 MG IV (16:59)
[2025-03-18] MEDS: STERILE WATER FOR INJECTION 10 ML IV (17:00)
[2025-03-18] MEDS: ROCEPHIN 1000 MG IV (17:00)
[2025-03-18 17:29] LABS: Glucose - Point of Care 118 mg/dl (70-99)
[2025-03-18] MEDS: NOVOLOG FLEXPEN-LOW RESISTANCE SC (17:30)
[2025-03-18] MEDS: XARELTO 20 MG PO (17:30)
[2025-03-18] MEDS: ZYLOPRIM 100 MG PO (17:31)
[2025-03-18 19:00] VITALS: BP 121/96
[2025-03-18 21:08] LABS: Glucose - Point of Care 138 mg/dl (70-99)
[2025-03-18] MEDS: CYMBALTA DELAYED RELEASE 60 MG PO (21:16)
[2025-03-18] MEDS: LIPITOR 40 MG PO (21:16)
[2025-03-18] MEDS: ASPIR LOW (ENTERIC COATED) 81 MG PO (21:16)
[2025-03-18] MEDS: FLOMAX 0.4 MG PO (21:16)
[2025-03-18] MEDS: LANTUS 0.4 UNITS SC (21:17)
[2025-03-18 23:00] VITALS: BP 116/71
[2025-03-19 02:51] VITALS: BP 104/64
[2025-03-19 06:00] VITALS: BMI 36.9
--- NOTE | 2025-03-19 06:49 | W.PN.HOSP.TC ---
Addendum entered and electronically signed by Colby Fountain MD 03/19/25 16:04:
Seen and examined by me independently in collaboration with the medical device sales.
Lab data reviewed.
Addendum as below :
Patient has resolved dysuria. He says his stream is improved. His urine analysis was positive but urine culture showed no growth. CT of the abdomen pelvis showed cystitis. Unclear at this point if it is an inflammatory cystitis or infectious
cystitis but patient does resolution of symptoms I would continue with antibiotics in total of 5 days. If patient has recurrent symptoms and has persistent sterile pyuria he was advised to return back to his primary urologist who is being involved
for many years. Continue with his BPH medication.
Denies shortness of breath today. Stable oxygenation. Chest clear. Switch back to his oral Bumex.
Today she brings to my attention that he had no issues with swallowing since admission but today after breakfast he had difficulty getting the food down and had 1 episode of emesis. No nausea to begin with no abdominal pain. Recently was troubled
with similar symptoms and was diagnosed with esophageal motility issue. He was supposed to get a Protonix twice a day which she was not on. He had an outpatient dysmotility testing as well done. I discussed with on-call GI who recommends
modification of diet and continue PPI BID. Patient was advised to take soft food and chopped food.
Obtain PT eval and start discharge planning home
Original Note:
Today's Communication/Plan
-
- Discharge today with future follow up with Document Review Specialist for the future Manometry in an OPD department.
Assessment / Plan
Assessment / Plan
79 yr M with k/h/o CHF, Recurrent UTI, AFib currently presented with dysuria
#Symptomatic Recurrent UTI:
-pt with prior multiple UTIs, on BPH medications.
Today he is tachycardiac, tachypneic
Urinalysis - moderate positive , Urine bacteria, Urine occult blood positive, Urine bacterial reflex positive
Urine culture showed no growth.
-Previous urine culture- serratia positive
-positive urinalysis and leukocytosis, Tachypneic, Tachycardia met sepsis criteria while on admission.
-Afebrile and blood pressure normal today.
-Based on previous urine culture data Ceftriaxone 1 g iv started.
- Ordered for bladder scan for any retention.
-ID consultation required with recurrent UTIs history.
-Ceftriaxone 1 g iv (day3) switched to cephalexin 500mg BID.
-SIRS was present on admission and is now resolved
CT SCAN PELVIS/ABDOMEN (03/17):
1 Questionable cystitis. No other convincing acute process in the abdomen or pelvis.
2 Lower Chest: Moderate left and [id number] right pleural effusions with associated compressive atelectasis, new/progressed from prior.
3 Small to moderate pericardial effusion, new from prior.
4 Coronary artery calcifications re demonstrated.
# Dysphagia:
-On 02/05/25 follow up barium meal study mentioned corkscrew appearance with severe diffuse esophageal spasm.
-Pantoprazole 40 mg IV BID prescribed while on discharge.
-Advised to have soft diet, liquid foods until the next follow up in an Outpatient set up for the future mannometry.
# Developed Acute CHFpEF:
- No Pedal edema, BP 104/64, AC=411; I/O= , WT- 134.0 KG reduced from 137.92 kg.
-Pro BNP= 973 (03/18) within normal range.
-Pt telemetry results showed sinus rhythm.
-Last echocardiogram on February 05 2025 showed with preserved LVEF ( EF 55-60%), dilated RV though unable to assess RV systole.
-IV Lasix 40 mg was stopped because the presentation of shortness of breath, pedal edema resolved today and switched to Bumex 1 mg daily.
-Continue Farziga 10 mg PO daily.
On 03/17 Chest x ray:
1. opacity within both lower lungs, greater on the left compared to the right. Findings are most suggestive of atelectasis, although pneumonia not excluded.
2. Slight blunting of the posterior costophrenic angles bilaterally, and small bilateral pleural effusions are possible.
3. Cardiomegaly with no convincing evidence for active vascular congestion.
# Pressure ulcer:
-nearly healed stage 2 PI's on buttocks and sacrum.
-Silicone foam in use and patient using zinc oxide at home.
-Pressure redistribution devices in place: Versa care air, pillow under calves.
-Plan: Sacral silicone foam to continue and foams on heels to protect.
-R 2nd toe was open to air.
# PT/ OT Consulted:
-Recommended for home PT to address his functional deficits.
-PT discussed regards his bowel regimen at home and using toilet regularly.
#HTN and CAD:
Lisinopril 10 mg, Aspirin 81 mg continuing
#RA
On immunomodulating agent MTX and leucovorin.
#BPH:
Obstruction might be the cause for recurrent UTI current presentation
Continue Finasteride 5 mg, Tamsulosin 0.4 mg
#Permanent A-fib
mildly elevated RVR presentation because of the Sepsis.
- �Continue Xarelto (rivaroxaban 20 mg), metoprolol succinate 50 mg for rate control
#IDDM:
Insulin Sliding scale (low). Progressive weakness.
DM diet management
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
�-Continue fluticosone, salmeterol 250-50 mcg,� prednisone 5 mg
- chronic hypoxic respiratory insufficiency with 2 l nasal cannula for day time and 3 l for night time at home.
# Hypercholesterolemia:
Atorvastatin 40 mg
Disposition: Home
DVT Prophylaxis: rivaroxaban 20 mg
Anticipated Discharge: Today
Subjective/Interval History
-
Date of Service: March 19, 2025
Overnight pt has no concerns for the shortness of breath, chests pain, palpitation, leg swelling, fever, dysuria.
While around 11:30 AM on the rounds pt was forcing himself for the vomit because ' I have a discomfort and difficulty on swallowing while on eating my breakfast including liquids' so he forced himself to attempt vomit,which relieved his symptoms.
The pt was previously diagnosed with diffuse esophageal spasm with esophagogram- SEVERE DIFFUSE ESOPHAGEAL SPASM with a CORKSCREW ESOPHAGUS. Obstruction of a barium impregnated tablet in the distal esophagus.
Objective Data
-
Labs:
Laboratory Results
03/19/25 07:37
03/19/25 07:37
Laboratory Results
Lactic Acid Cancelled 03/19/25 06:00
Total Bilirubin 1.0 mg/dl (0.2-1.3) 03/18/25 07:21
AST 29 U/L (17-59) 03/18/25 07:21
ALT 42 U/L (0-50) 03/18/25 07:21
Alkaline Phosphatase 322 U/L (38-126) H 03/18/25 07:21
Troponin I < 0.012 ng/ml 03/17/25 13:40
Vital Signs:
Vital Signs
Temp Pulse Resp BP Pulse Ox
98.1 F 104 20 104/64 96
03/19/25 02:51 03/19/25 02:51 03/19/25 02:51 03/19/25 02:51 03/19/25 02:51
I&O
03/17/25 03/18/25 03/19/25
06:59 06:59 06:59
Output Total 1090 / 1090 2740 / 2740
Balance -1090 / -1090 -2740 / -2740
Review of Systems
-
History Source: Patient
Constitutional: Reports No Symptoms
EENT: Reports No Symptoms Reported
Respiratory: Reports No Symptoms
Cardiac: Reports No Symptoms
Abdomen/GI: Reports Vomiting (he attempted to do vomit because of the dysphagia symptoms. )
Genitourinary: Reports No Symptoms
Musculoskeletal: Reports No Symptoms
Skin: Reports No Symptoms
Neuro: Reports No Symptoms
Endocrine: Reports No Symptoms
Hematologic / Lymphatic: Reports No Symptoms
Allergy / Immunology: Reports No Symptoms
Psych: Reports Depressed
Physical Exam
-
General: No Apparent Distress
Respiratory: Clear to Auscultation
Cardiac: Regular Rhythm and S1/S2
GI: Soft, Nontender, Nondistended and Normal Bowel Sounds
Genito-urinary: No Costovertebral Tender
Skin: Other (Stage 2 pressure ulcer on buttocks, sacrum. R 2nd toe with intact scab, skin warm and dry, + palpable pedal pulses.)
Neuro: AO x 3
Hematologic / Lymphatic: No Lymphadenopathy
Psych: Calm
[2025-03-19 07:19] VITALS: BP 122/82
[2025-03-19 07:20] LABS: Glucose - Point of Care 160 mg/dl (70-99)
[2025-03-19] MEDS: NOVOLOG FLEXPEN-LOW RESISTANCE 1 UNITS SC ×2 (08:05→12:59)
[2025-03-19] MEDS: NOVOLOG FLEXPEN 12 UNITS SC ×2 (08:05→17:42)
[2025-03-19] MEDS: LASIX 40 MG IV (08:05)
[2025-03-19 08:13] LABS: Hematocrit 32.9 % (39.0-52.0); Hemoglobin 10.0 g/dL (13.0-18.0); Mean Corp Hgb Conc. 30.4 g/dL (33.0-37.0); Mean Corpuscular Volume 91.1 fL (80.0-94.0); Nucleated Red Blood Cells % 0 % (-); Platelet Count 290 10^3/uL (130-400); Red Cell Dist. Width 18.6 % (11.5-14.5)
[2025-03-19] MEDS: ADVAIR HFA 115/21 MCG INHALER 2 PUFF INH ×2 (08:17→19:16)
[2025-03-19 08:43] LABS: Blood Urea Nitrogen 21 mg/dl (9-20); Calcium 8.3 mg/dl (8.4-10.2); Carbon Dioxide 33 mmol/L (22-30); Chloride 96 mmol/L (98-107); Estimated Creatinine Clearance 97 ml/min; Glucose 159 mg/dl (70-99); Potassium 4.3 mmol/L (3.5-5.1); Sodium 135 mmol/L (135-145); eGFR > 60.00
[2025-03-19] MEDS: DELTASONE 5 MG PO (09:03)
[2025-03-19] MEDS: PROSCAR 5 MG PO (09:03)
[2025-03-19] MEDS: FARXIGA 10 MG PO (09:03)
[2025-03-19] MEDS: TOPROL XL 25 MG PO (09:03)
[2025-03-19] MEDS: PAMELOR 25 MG PO ×2 (09:03→20:12)
[2025-03-19] MEDS: NEURONTIN 800 MG PO ×3 (09:03→21:54)
[2025-03-19] MEDS: ZESTRIL 10 MG PO (09:04)
--- NOTE | 2025-03-19 11:04 | CM ---
Chart reviewed and patient to return to home when stable, disease case manager rn reached out to [facility] at home by Oskar More. Updated clinicals faxed through [employer].
[phone]
[2025-03-19 12:52] LABS: Glucose - Point of Care 174 mg/dl (70-99)
[2025-03-19] MEDS: NOVOLOG FLEXPEN SC (13:13)
--- NOTE | 2025-03-19 13:49 | PN.CDI ---
CDI
- -
CDI:
Physician Documentation Request
Admit Date: 03/18/25 08:08
Dear Doctor Александр/Resident ,
Please review the following and provide your response in the progress notes.
Clinical Indicators:
Pt admitted with Recurrent UTI /Sepsis / Developed Acute CHFpEF
Documented per [facility] note 03/18, ' Patient admitted with: nearly healed stage 2 PI's on buttocks and sacrum. Silicone foam in use and patient using zinc oxide at home..'
Physician documentation of the type and location of wounds is required for compliant documentation. Based on the above clinical findings and your assessment, please provide the following in your progress note:
1. Location of the ulcer/wound, including laterality.
2. Type (etiology) of ulcer/wound:
- Pressure (decubitus) ulcer
- Non-pressure ulcer
- Other ( please specify)
Use of terms such as suspected, likely, concern for, or probable (associated with a specific diagnosis that is being evaluated, monitored, or treated as if it exists) are acceptable and can be coded in the inpatient setting, when documented at the
time of discharge.
Thank you,
Cherelle Deras RN
CDI Specialist
[place] [facility]
Please use your independent medical judgment in providing your response.
*Source: National Pressure Ulcer Advisory Panel (NPUAP)
--- NOTE | 2025-03-19 13:54 | PN.CDI ---
CDI
- -
CDI:
Physician Documentation Request
Admit Date: 03/18/25 08:08
Dear Doctor Александр/Resident ,
Please review the following and provide your response in the progress notes.
Clinical Indicators:
Pt admitted with Recurrent UTI /Sepsis / Developed Acute CHFpEF
Documented per h&P and progress note 03/18, ' COPD:...chronic hypoxic respite insufficiency with 2 l nasal cannula for day time and 3 l for night time at home......'
Please Clarify which of the following accurately represents the patient's respiratory status/chronic home oxygen use:
Chronic Hypoxic Respiratory Failure
Chronic Hypoxic Respiratory insufficiency only
Other (please specify)
Use of terms such as suspected, likely, concern for, or probable (associated with a specific diagnosis that is being evaluated, monitored, or treated as if it exists) are acceptable and can be coded in the inpatient setting, when documented at the
time of discharge.
Thank you,
Cherelle Deras RN
CDI Specialist
[place] [facility]
Please use your independent medical judgment in providing your response.
--- NOTE | 2025-03-19 14:22 | PN.CDI ---
CDI
- -
CDI:
Physician Documentation Request
Admit Date: 03/18/25 08:08
Dear Doctor Александр/Resident,
Please review the following and provide your response in the progress notes.
Clinical Indicators:
Pt admitted with Recurrent UTI /Sepsis / Developed Acute CHFpEF
Documented in H&P and progress note 03/18,' #RA On immunomodulating agent MTX and leucovorin....'
Please further specify a diagnosis for the above use of MTX /immunomodulating agent :
Immunocompromised
immunomodulating agent only
Other ( please specify)
Use of terms such as suspected, likely, concern for, or probable (associated with a specific diagnosis that is being evaluated, monitored, or treated as if it exists) are acceptable and can be coded in the inpatient setting, when documented at the
time of discharge.
Thank you,
Cherelle Deras RN
CDI Specialist
[place] [facility]
Please use your independent medical judgment in providing your response.
[2025-03-19 15:00] VITALS: BP 120/76
[2025-03-19] MEDS: BUMEX 1 MG PO (16:06)
[2025-03-19] MEDS: ROCEPHIN 1000 MG IV (16:07)
[2025-03-19] MEDS: STERILE WATER FOR INJECTION 10 ML IV (16:07)
[2025-03-19 17:06] LABS: Glucose - Point of Care 212 mg/dl (70-99)
[2025-03-19] MEDS: NOVOLOG FLEXPEN-LOW RESISTANCE 2 UNITS SC (17:42)
[2025-03-19] MEDS: XARELTO 20 MG PO (17:45)
[2025-03-19] MEDS: ZYLOPRIM 100 MG PO (17:45)
[2025-03-19 19:05] VITALS: BP 94/56
[2025-03-19] MEDS: LIPITOR 40 MG PO (20:12)
[2025-03-19] MEDS: PROTONIX 40 MG PO (20:12)
[2025-03-19] MEDS: ASPIR LOW (ENTERIC COATED) 81 MG PO (20:12)
[2025-03-19 21:16] LABS: Glucose - Point of Care 279 mg/dl (70-99)
[2025-03-19] MEDS: CYMBALTA DELAYED RELEASE 60 MG PO (21:54)
[2025-03-19] MEDS: LANTUS 0.4 UNITS SC (21:54)
[2025-03-19] MEDS: FLOMAX 0.4 MG PO (21:54)
[2025-03-19 23:25] VITALS: BP 106/63
[2025-03-20] VITALS (8 sets, daily range): BP systolic 88–125; BP diastolic 48–74; PULSE 99; O2SAT 98; BMI 37.3
--- NOTE | 2025-03-20 05:56 | W.PN.HOSP.TC ---
Today's Communication/Plan
-
waiting for physical therapy consultation.
Assessment / Plan
Assessment / Plan
79 yr M with k/h/o CHF, Recurrent UTI, AFib currently presented with dysuria
#Symptomatic Recurrent UTI:
-pt with prior multiple UTIs, on BPH medications.
Today he is tachycardiac, tachypneic
Urinalysis - moderate positive , Urine bacteria, Urine occult blood positive, Urine bacterial reflex positive
Urine culture showed no growth.
-Previous urine culture- serratia positive
-positive urinalysis and leukocytosis, Tachypneic, Tachycardia met sepsis criteria while on admission.
-Afebrile and blood pressure normal today.
-Based on previous urine culture data Ceftriaxone 1 g iv started.
- Ordered for bladder scan for any retention.
-ID consultation required with recurrent UTIs history.
-Ceftriaxone 1 g iv (day 4) switched to cephalexin 500mg BID.
-SIRS was present on admission and is now resolved.
CT SCAN PELVIS/ABDOMEN (03/17):
1 Questionable cystitis. No other convincing acute process in the abdomen or pelvis.
2 Lower Chest: Moderate left and igsbz-[id number]-[id number] right pleural effusions with associated compressive atelectasis, new/progressed from prior.
3 Small to moderate pericardial effusion, new from prior.
4 Coronary artery calcifications re demonstrated.
# Dysphagia:
-On 02/05/25 follow up barium meal study mentioned corkscrew appearance with severe diffuse esophageal spasm.
-Pantoprazole 40 mg IV BID prescribed while on discharge.
-Advised to have soft diet, liquid foods until the next follow up in an Outpatient set up for the future mannometry.
# Developed Acute CHFpEF:
- No Pedal edema, BP 104/64, VF=373; I/O= , WT- 134.0 KG reduced from 137.92 kg.
-Pro BNP= 973 (03/18) within normal range.
-Pt telemetry results showed sinus rhythm.
-Last echocardiogram on February 05 2025 showed with preserved LVEF ( EF 55-60%), dilated RV though unable to assess RV systole.
-IV Lasix 40 mg was stopped because the presentation of shortness of breath, pedal edema resolved today and switched to Bumex 1 mg daily.
-Continue Farziga 10 mg PO daily.
On 03/17 Chest x ray:
1. opacity within both lower lungs, greater on the left compared to the right. Findings are most suggestive of atelectasis, although pneumonia not excluded.
2. Slight blunting of the posterior costophrenic angles bilaterally, and small bilateral pleural effusions are possible.
3. Cardiomegaly with no convincing evidence for active vascular congestion.
# Pressure ulcer:
-nearly healed stage 2 PI's on buttocks and sacrum.
-Silicone foam in use and patient using zinc oxide at home.
-Pressure redistribution devices in place: Versa care air, pillow under calves.
-Plan: Sacral silicone foam to continue and foams on heels to protect.
-R 2nd toe was open to air.
# PT/ OT Consulted:
-Recommended for home PT to address his functional deficits.
-PT discussed regards his bowel regimen at home and using toilet regularly.
#HTN and CAD:
Lisinopril 10 mg, Aspirin 81 mg continuing
#RA
On immunomodulating agent MTX and leucovorin.
#BPH:
Obstruction might be the cause for recurrent UTI current presentation
Continue Finasteride 5 mg, Tamsulosin 0.4 mg
#Permanent A-fib
mildly elevated RVR presentation because of the Sepsis.
- �Continue Xarelto (rivaroxaban 20 mg), metoprolol succinate 50 mg for rate control
#IDDM:
Insulin Sliding scale (low). Progressive weakness.
DM diet management
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
�-Continue fluticosone, salmeterol 250-50 mcg,� prednisone 5 mg
- chronic hypoxic respiratory insufficiency with 2 l nasal cannula for day time and 3 l for night time at home.
# Hypercholesterolemia:
Atorvastatin 40 mg
Disposition: Home
DVT Prophylaxis: rivaroxaban 20 mg
Anticipated Discharge: 24 - 48 hours
Subjective/Interval History
-
Date of Service: March 20, 2025
Objective Data
-
Labs:
Laboratory Results
03/20/25
06:00
WBC Pending
Hgb Pending
Hct Pending
Plt Count Pending
Sodium Pending
Potassium Pending
Chloride Pending
Carbon Dioxide Pending
BUN Pending
Creatinine Pending
Glucose Pending
Calcium Pending
Total Bilirubin Pending
AST Pending
ALT Pending
Alkaline Phosphatase Pending
Vital Signs:
Vital Signs
Temp Pulse Resp BP Pulse Ox
98.3 F 99 18 100/63 97
03/20/25 03:23 03/20/25 03:23 03/20/25 03:23 03/20/25 03:23 03/20/25 03:23
I&O
03/18/25 03/19/25 03/20/25
06:59 06:59 06:59
Intake Total 960 / 960
Output Total 1090 / 1090 2740 / 2740 1600 / 1600
Balance -1090 / -1090 -2740 / -2740 -640 / -640
[2025-03-20] MEDS: ADVAIR HFA 115/21 MCG INHALER 2 PUFF INH ×2 (07:30→20:18)
[2025-03-20 08:08] LABS: Glucose - Point of Care 156 mg/dl (70-99)
[2025-03-20] MEDS: NEURONTIN 800 MG PO ×3 (08:46→21:49)
[2025-03-20] MEDS: BUMEX 1 MG PO (08:46)
[2025-03-20] MEDS: FARXIGA 10 MG PO (08:46)
[2025-03-20] MEDS: PAMELOR 25 MG PO ×2 (08:46→20:19)
[2025-03-20] MEDS: ZESTRIL 10 MG PO (08:46)
[2025-03-20] MEDS: PROSCAR 5 MG PO (08:46)
[2025-03-20] MEDS: DELTASONE 5 MG PO (08:47)
[2025-03-20] MEDS: TOPROL XL 25 MG PO (08:47)
[2025-03-20] MEDS: PROTONIX 40 MG PO ×2 (08:47→20:16)
[2025-03-20 10:00] LABS: Hematocrit 30.8 % (39.0-52.0); Hemoglobin 9.6 g/dL (13.0-18.0); Mean Corp Hgb Conc. 31.2 g/dL (33.0-37.0); Mean Corpuscular Volume 89.0 fL (80.0-94.0); Nucleated Red Blood Cells % 0 % (-); Platelet Count 251 10^3/uL (130-400); Red Cell Dist. Width 18.6 % (11.5-14.5)
[2025-03-20] MEDS: NOVOLOG FLEXPEN SC (10:48)
[2025-03-20] MEDS: NOVOLOG FLEXPEN-LOW RESISTANCE SC (10:48)
[2025-03-20 10:52] LABS: ALT (SGPT) 65 U/L (0-50); AST (SGOT) 73 U/L (17-59); Albumin 3.0 g/dl (3.5-5.0); Alkaline Phosphatase 218 U/L (38-126); Blood Urea Nitrogen 24 mg/dl (9-20); Calcium 8.4 mg/dl (8.4-10.2); Carbon Dioxide 34 mmol/L (22-30); Chloride 95 mmol/L (98-107); Estimated Creatinine Clearance 109 ml/min; Glucose 155 mg/dl (70-99); Potassium 4.0 mmol/L (3.5-5.1); Sodium 134 mmol/L (135-145); Total Protein 6.4 g/dl (6.3-8.2); eGFR > 60.00
[2025-03-20 11:50] LABS: Glucose - Point of Care 178 mg/dl (70-99)
--- NOTE | 2025-03-20 13:13 | CM ---
Chart reviewed and plan is for patient to return to home when stable, patient has been set up with [facility] visiting nurses.
[facility]
[phone]
[2025-03-20] MEDS: NOVOLOG FLEXPEN-LOW RESISTANCE 1 UNITS SC ×2 (14:17→17:41)
[2025-03-20] MEDS: NOVOLOG FLEXPEN 12 UNITS SC ×2 (14:17→17:41)
--- NOTE | 2025-03-20 14:22 | W.PN.UPDATE ---
Update Note
Progress Note Update
Seen and examined by me independently in collaboration with the manager of medical.
Lab data and imaging data reviewed.
Addendum as below :
No recurrence of urinary symptoms. Breathing comfortable on on home O2 FiO2. Chest clear.
Patient again had today soda for food bolus situation where he has to regurgitate with the breakfast like yesterday. He was able to tolerate dinner last night but he took care to chew his food.
He has been having evaluation for distal esophageal spasm/motility disorder as an outpatient. He was advised PPI twice daily and to modify diet.
PT evaluation noted-patient seems to be not at baseline with regards to his strength and recommending rehab.
I discussed with GI [id number] his current esophageal motility issue cornerstone for treatment is modified diet/pur�ed, chopped diet and gain strength from his hospitalization. He has active follow-up with GI as an outpatient.
Stressed to the patient about the importance of modified diet and be upright eating and small meals.
He would benefit for the physical therapy-PT is recommending SNF but he wants to have PT to reevaluate him.
[2025-03-20] MEDS: STERILE WATER FOR INJECTION 10 ML IV (15:40)
[2025-03-20] MEDS: ROCEPHIN 1000 MG IV (15:41)
[2025-03-20 17:06] LABS: Glucose - Point of Care 183 mg/dl (70-99)
[2025-03-20] MEDS: ZYLOPRIM 100 MG PO (17:42)
[2025-03-20] MEDS: XARELTO 20 MG PO (17:42)
[2025-03-20] MEDS: FLOMAX 0.4 MG PO (20:16)
[2025-03-20] MEDS: ASPIR LOW (ENTERIC COATED) 81 MG PO (20:16)
[2025-03-20] MEDS: LIPITOR 40 MG PO (20:16)
[2025-03-20] MEDS: CYMBALTA DELAYED RELEASE 60 MG PO (20:16)
[2025-03-20 21:40] LABS: Glucose - Point of Care 144 mg/dl (70-99)
[2025-03-20] MEDS: LANTUS 0.4 UNITS SC (21:49)
[2025-03-21 03:00] VITALS: BP 101/66
[2025-03-21 06:00] VITALS: BMI 37.1
[2025-03-21 07:09] LABS: Glucose - Point of Care 107 mg/dl (70-99)
[2025-03-21 07:25] VITALS: BP 121/80
--- NOTE | 2025-03-21 07:33 | W.PN.HOSP.TC ---
Today's Communication/Plan
-
Patient was recommended rehab but he is declining and refusing. Entertaining home services.
Patient needs assistance for activity and refusing to perform further ambulation while on physical therapy session.
Discussed with the daughter Tiny regarding DC plan.
Discussed regards his safety concerns for his mobilization.
Assessment / Plan
Assessment / Plan
79 yr M with k/h/o CHF, Recurrent UTI, AFib currently presented with dysuria
#Symptomatic Recurrent UTI:
-pt with prior multiple UTIs, on BPH medications.
Today he is tachycardiac, tachypneic
Urinalysis - moderate positive , Urine bacteria, Urine occult blood positive, Urine bacterial reflex positive
Urine culture showed no growth.
-Previous urine culture- serratia positive
-positive urinalysis and leukocytosis, Tachypneic, Tachycardia met sepsis criteria while on admission.
-Afebrile and blood pressure normal today.
-ID consultation required with recurrent UTIs history.
-Ceftriaxone 1 g iv (day 5) switched to cephalexin 500mg BID for 2 more days for the discharge today.
CT SCAN PELVIS/ABDOMEN (03/17):
1 Questionable cystitis. No other convincing acute process in the abdomen or pelvis.
2 Lower Chest: Moderate left and [id number] right pleural effusions with associated compressive atelectasis, new/progressed from prior.
3 Small to moderate pericardial effusion, new from prior.
4 Coronary artery calcifications re demonstrated.
# Dysphagia:
-On 02/05/25 follow up barium meal study mentioned corkscrew appearance with severe diffuse esophageal spasm.
-Pantoprazole 40 mg IV BID prescribed while on discharge.
-Advised to have soft diet, liquid foods until the next follow up in an Outpatient set up for the future mannometry.
# Developed Acute CHFpEF:
- No Pedal edema, BP 104/64, CD=294; I/O= , WT- 134.0 KG reduced from 137.92 kg.
-Pro BNP= 973 (03/18) within normal range.
-Pt telemetry results showed sinus rhythm.
-Last echocardiogram on February 05 2025 showed with preserved LVEF ( EF 55-60%), dilated RV though unable to assess RV systole.
-IV Lasix 40 mg was stopped because the presentation of shortness of breath, pedal edema resolved today and switched to Bumex 1 mg daily.
-Continue Farziga 10 mg PO daily.
On 03/17 Chest x ray:
1. opacity within both lower lungs, greater on the left compared to the right. Findings are most suggestive of atelectasis, although pneumonia not excluded.
2. Slight blunting of the posterior costophrenic angles bilaterally, and small bilateral pleural effusions are possible.
3. Cardiomegaly with no convincing evidence for active vascular congestion.
# Pressure ulcer:
-nearly healed stage 2 PI's on buttocks and sacrum.
-Silicone foam in use and patient using zinc oxide at home.
-Pressure redistribution devices in place: Versa care air, pillow under calves.
-Plan: Sacral silicone foam to continue and foams on heels to protect.
-R 2nd toe was open to air.
# PT/ OT Consulted:
-Recommended for home PT to address his functional deficits.
-PT discussed regards his bowel regimen at home and using toilet regularly.
#HTN and CAD:
Lisinopril 10 mg, Aspirin 81 mg continuing
#RA
On immunomodulating agent MTX and leucovorin.
#BPH:
Obstruction might be the cause for recurrent UTI current presentation
Continue Finasteride 5 mg, Tamsulosin 0.4 mg
#Permanent A-fib
mildly elevated RVR presentation because of the Sepsis.
- �Continue Xarelto (rivaroxaban 20 mg), metoprolol succinate 50 mg for rate control
#IDDM:
Insulin Sliding scale (low). Progressive weakness.
DM diet management
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
�-Continue fluticosone, salmeterol 250-50 mcg,� prednisone 5 mg
- chronic hypoxic respiratory insufficiency with 2 l nasal cannula for day time and 3 l for night time at home.
# Hypercholesterolemia:
Atorvastatin 40 mg
Disposition: Home
DVT Prophylaxis: rivaroxaban 20 mg
Anticipated Discharge: Today
Subjective/Interval History
-
Date of Service: March 21, 2025
Patient doesn't has any concern for dysuria, chest pain, palpitation, dyspnea.
Objective Data
-
Labs:
03/21/25 07:49
03/21/25 07:49
Laboratory Results
Lactic Acid Cancelled 03/19/25 06:00
Total Bilirubin 0.7 mg/dl (0.2-1.3) 03/21/25 07:49
AST 71 U/L (17-59) H 03/21/25 07:49
ALT 72 U/L (0-50) H 03/21/25 07:49
Alkaline Phosphatase 230 U/L (38-126) H 03/21/25 07:49
Troponin I < 0.012 ng/ml 03/17/25 13:40
Laboratory Results
Vital Signs:
Vital Signs
Temp Pulse Resp BP Pulse Ox
98.3 F 98 18 101/66 93
03/21/25 03:00 03/21/25 03:00 03/21/25 03:00 03/21/25 03:00 03/21/25 03:00
I&O
03/20/25 03/21/25 03/22/25
06:59 06:59 06:59
Intake Total 960 / 960 960 / 960
Output Total 1600 / 1600 2074
Balance -640 / -640 -1115 / -1115
Review of Systems
-
History Source: Patient
Constitutional: Reports No Symptoms
Respiratory: Reports No Symptoms
Cardiac: Reports No Symptoms
Abdomen/GI: Reports No Symptoms
Genitourinary: Reports No Symptoms
Musculoskeletal: Reports No Symptoms
Skin: Reports No Symptoms
Neuro: Reports No Symptoms
Endocrine: Reports No Symptoms
Hematologic / Lymphatic: Reports No Symptoms
Allergy / Immunology: Reports No Symptoms
Physical Exam
-
General: Morbidly Obese
HEENT: Normocephalic
Respiratory: Clear to Auscultation
Cardiac: Regular Rhythm and S1/S2
GI: Soft, Nontender and Nondistended
Genito-urinary: No Costovertebral Tender
Skin: Warm
Neuro: AO x 3
Hematologic / Lymphatic: No Lymphadenopathy
Psych: Calm
[2025-03-21] MEDS: NOVOLOG FLEXPEN-LOW RESISTANCE SC ×2 (08:37→12:14)
[2025-03-21] MEDS: BUMEX 1 MG PO (08:38)
[2025-03-21] MEDS: NOVOLOG FLEXPEN 12 UNITS SC ×2 (08:38→17:53)
[2025-03-21] MEDS: FARXIGA 10 MG PO (08:38)
[2025-03-21] MEDS: PROTONIX 40 MG PO (08:38)
[2025-03-21] MEDS: PAMELOR 25 MG PO (08:39)
[2025-03-21] MEDS: TOPROL XL 25 MG PO (08:39)
[2025-03-21] MEDS: ZESTRIL 10 MG PO (08:39)
[2025-03-21] MEDS: NEURONTIN 800 MG PO ×2 (08:39→16:30)
[2025-03-21] MEDS: PROSCAR 5 MG PO (08:39)
[2025-03-21] MEDS: ADVAIR HFA 115/21 MCG INHALER 2 PUFF INH (08:43)
[2025-03-21] MEDS: DELTASONE 5 MG PO (08:44)
[2025-03-21 08:55] LABS: Hematocrit 30.5 % (39.0-52.0); Hemoglobin 9.3 g/dL (13.0-18.0); Mean Corp Hgb Conc. 30.5 g/dL (33.0-37.0); Mean Corpuscular Volume 89.7 fL (80.0-94.0); Nucleated Red Blood Cells % 0 % (-); Platelet Count 312 10^3/uL (130-400); Red Cell Dist. Width 18.6 % (11.5-14.5)
[2025-03-21 09:35] LABS: ALT (SGPT) 72 U/L (0-50); AST (SGOT) 71 U/L (17-59); Albumin 3.1 g/dl (3.5-5.0); Alkaline Phosphatase 230 U/L (38-126); Blood Urea Nitrogen 20 mg/dl (9-20); Calcium 8.4 mg/dl (8.4-10.2); Carbon Dioxide 35 mmol/L (22-30); Chloride 96 mmol/L (98-107); Estimated Creatinine Clearance 97 ml/min; Glucose 94 mg/dl (70-99); Potassium 3.9 mmol/L (3.5-5.1); Sodium 136 mmol/L (135-145); Total Protein 6.6 g/dl (6.3-8.2); eGFR > 60.00
[2025-03-21 10:26] VITALS: BP 91/50; BP 93/63; PULSE 101; O2SAT 96
[2025-03-21 11:20] VITALS: BP 115/77
[2025-03-21 12:12] LABS: Glucose - Point of Care 99 mg/dl (70-99)
--- NOTE | 2025-03-21 12:57 | CM ---
Addendum entered by Viviana Garcia 03/21/25 16:42:
Patient 's grandson to pick patient up and bring in oxygen.
Addendum entered by Viviana Garcia 03/21/25 16:10:
Call placed to patient's phone as requested by patient and message left at [phone] for family to transport patient to home today.
Original Note:
Chart reviewed and catalytic case operator met with patient along with physician and plan is for patient to return to home, patient has declined skilled placement for rehab despite physical therapy recommendations, patient has been set up with [facility] visiting
nurses, PT/OT and nurse.
Plan Home with [facility] visiting nurses.
[facility] Visiting Nurses
[phone]
--- NOTE | 2025-03-21 14:13 | W.PN.UPDATE ---
Update Note
Progress Note Update
Seen and examined by me independently in collaboration with the medical driver.
Lab data reviewed.
Addendum as below :
Remains without symptoms. Culture negative suspected UTI. In view of improvement of symptoms with antibiotics will continue 5-day total course. Switch to oral Keflex on discharge. Patient and the daughter was told if she were to have
recurrent urinary symptoms again sterol pyuria then follow-up with his urologist.
Breathing comfortable. On his home O2 oxygen FiO2.
Chest clear.
Today no issues with his breakfast. As because he probably was sitting in the chair for his meal. Advised being upright and keep modifying diet to chopped/pur�ed consistency. Follow-up with GI as an outpatient for his esophageal dysmotility.
Continue PPI.
Patient was recommended rehab but he is declining and refusing. Entertaining home services.
DC home after rehab session today with home services.
Discussed yesterday with the daughter Tiny regarding DC plan.
Total time of discharge 32 minutes
[2025-03-21] MEDS: NOVOLOG FLEXPEN SC (14:45)
[2025-03-21 15:03] VITALS: BP 116/74
[2025-03-21] MEDS: ROCEPHIN 1000 MG IV (16:30)
[2025-03-21] MEDS: STERILE WATER FOR INJECTION 10 ML IV (16:30)
[2025-03-21 16:37] LABS: Glucose - Point of Care 212 mg/dl (70-99)
--- NOTE | 2025-03-21 17:16 | W.DCSUMMARY ---
Discharge Summary
Discharge Data
Date of Admission: 03/18/25
Date of Discharge: 03/21/25
Total time spent discharging patient (in min): 20 mins
-
Pending Results: No
Hospital Course
Discharging Physician : Dr Marvin Dykes
Colby Aquino MD
Disposition : Home with Home care
Primary care physician : NOT KNOW UNKNOWN
Principal Discharge diagnosis : Symptomatic recurrent UTI
Chronic Discharge diagnosis :
CAD
A-fib currently anticoagulated
COPD
Hypertension
Hospital Course : On 03/17 79-year-old male with past medical history of CAD, A-fib currently anticoagulated, COPD, hypertension, diabetes presented to the ER concerns of urinary symptoms over the past few days. Claimed of frequency urgency and
burning with urination. Also had an episode of chest pain just prior to arrival described as achy to the left side only with movement and positioning.Pt with prior multiple UTIs, on BPH meds, Urinalysis - moderate positive , Urine bacteria, Urine
occult blood positive, Urine bacterial reflex positive, Previous urine culture- serratia positive, positive urinalysis and leukocytosis, Tachypneic, Tachycardia meets sepsis criteria. Afebrile and blood pressure normal. Based on previous urine
culture data IV ceftriaxone was started. Obstruction might be the cause for recurrent UTI planned to continue Finasteride 5 mg, Tamsulosin 0.4 mg and Permanent A-fib- mildly elevated RVR presentation were there because of the Sepsis, Xarelto
(rivaroxaban 20 mg), metoprolol succinate 50 mg for rate control drug were continued. While at the course of admission patient had a symptoms of dysphagia with past medical h/o diffuse esophageal spasm, GIT consulted with the recommendation of
outpatient follow up for the manometry. And patient had pressure ulcer which was managed with sacral silicone foam, versa care air.
Acute CHFpEF: managed with IV Lasix 40n mg BID followed by home medication of Bumex 1mg daily. Farziga 10 mg continued. Patient was stable while on discharge.
# According to PT recommendation is to disposition to SNF which is safe for the patient mobilization. But patient was continuously refusing for the SNF, and discharged to Home with Home PT service.
Important imaging findings :
CT SCAN PELVIS/ABDOMEN (03/17):
1 Questionable cystitis. No other convincing acute process in the abdomen or pelvis.
2 Lower Chest: Moderate left and [id number] right pleural effusions with associated compressive atelectasis, new/progressed from prior.
3 Small to moderate pericardial effusion, new from prior.
4 Coronary artery calcifications re demonstrated.
On 03/17 Chest x ray:
1. opacity within both lower lungs, greater on the left compared to the right. Findings are most suggestive of atelectasis, although pneumonia not excluded.
2. Slight blunting of the posterior costophrenic angles bilaterally, and small bilateral pleural effusions are possible.
3. Cardiomegaly with no convincing evidence for active vascular congestion.
Discharge Plan
-
Patient Disposition: Home with Home Care
Discharge Diagnosis/Procedures: Symptomatic sterile pyuria ?UTI. Recurrent UTI hx, esophageal motility disorder; chronic CHF
Condition: Fair
Diet: Other diet
Additional Diets: - Have soft diet, liquid form diet.
-Try to sit and take small minced food slowly.
- Have small bites with liquids in between bites.
Activity: As tolerated
Driving Restrictions: As prior to admission
Bathing Restrictions: None
Other Services: PT and OT
Wound Care: -Silicone foam in use and patient using zinc oxide at home.
-R 2nd toe with intact scab, skin warm and dry, + palpable pedal pulses. Patient able to turn self in bed.
- Continue Sacral silicone foam to continue and foams on heels to protect.
-R 2nd toe open to air.
Specialty Instructions: Weigh Daily- Call MD for wt gain/loss 3 lbs overnight/5 lbs in 1 week
Referrals:
Gucci Nichols MD [Active, Gastroenterology]
Referral Note: Diffuse esophageal spasm, follow up with manometry results in future.
UNKNOWN - PT DOES,NOT KNOW [Family Provider] - in less than 1 week
Additional Discharge Medication Instructions: Patient was recommended rehab but he is declining and refusing. Entertaining home services.
Patient needs assistance for activity and refusing to perform further ambulation while on physical therapy session.
Discussed with the daughter Tiny regarding DC plan.
Discussed regards his safety concerns for his mobilization.
Prescriptions:
New
cephalexin 500 mg capsule
500 mg PO QID Qty: 8 0RF
Rx Instructions:
for 2 days
Continued
prednisone 5 MG tablet
5 mg PO DAILY
tamsulosin 0.4 MG capsule
0.4 mg PO QPM
atorvastatin [Lipitor] 40 MG tablet
40 mg PO QPM
finasteride 5 MG tablet
5 mg PO DAILY
omega-3 acid ethyl esters [Lovaza] 1 GM capsule
1 gm PO BID
leucovorin calcium 10 mg Tablet
10 mg PO DIRECTED
Rx Instructions:
03/17/2025, take 12 hours after methotrexate injection on Saturdays.
duloxetine 60 mg Capsule,Delayed Release(Dr/Ec)
60 mg PO QPM
therapeutic multivitamin Tablet
1 tab PO QPM
methotrexate sodium 25 mg/mL Solution
25 mg SC SA
ascorbic acid (vitamin C) [Vitamin C] 500 mg Tablet
500 mg PO QPM
Xarelto 20 MG tablet
20 mg PO QPM
Visbiome 112.5 billion cell Capsule
1 cap PO BID
fluticasone propion-salmeterol [Advair Diskus] 250-50 mcg/dose Blister With Device
1 inh INHALATION R BID
tramadol 50 mg Tablet
50 mg PO TID
methenamine hippurate 1 gram Tablet
1 g PO QPM
ergocalciferol (vitamin D2) 1,250 mcg (50,000 unit) Capsule
1,250 mcg PO TH
metoprolol succinate 50 mg tablet extended release 24 hr
25 mg PO DAILY
Patient Comments:
03/17/2025, hold for SBP<100 and/or DBP<60.
gabapentin [Neurontin] 800 MG tablet
800 mg PO TID
aspirin 81 mg Tablet,Delayed Release (Dr/Ec)
81 mg PO QPM
lisinopril 10 mg Tablet
10 mg PO DAILY
Patient Comments:
03/17/2025, hold for SBP<100 and/or DBP<60.
insulin glargine [Lantus U-100 Insulin] 100 unit/mL Solution
40 unit SC HS
nortriptyline 25 mg Capsule
25 mg PO BID
insulin lispro [Humalog U-100 Insulin] 100 unit/mL Solution
12 unit SC AC
Metamucil
2 tsp PO DAILY
bumetanide 1 mg tablet
1 mg PO Q48H
esomeprazole magnesium [Nexium] 20 mg Capsule,Delayed Release(Dr/Ec)
20 mg PO BID
Discharge Orders:
Discharge Patient (As Directed); Ordered 03/21/25
Ordered By: Marvin Dykes
Discharge Date and Time
Discharge Date/Time: 03/21/25 18:35
Print Language: SPANISH
[2025-03-21] MEDS: NOVOLOG FLEXPEN-LOW RESISTANCE 2 UNITS SC (17:54)
[2025-03-21] MEDS: ADVAIR HFA 115/21 MCG INHALER INH (18:17)
== END 2025-03-21 18:35 | disposition home health service (06) | DRG 871 ==
LOC: 4 WEST ACU 08:08
PROVIDERS: Physician Assistant; Student in an Organized Health Care Education/Training Program; ADMITTING PHYSICIAN Internal Medicine; EMERGENCY PHYSICIAN Emergency Medicine
DX: A41.9 Sepsis, unspecified organism (principal); I50.31 Acute diastolic (congestive) heart failure; N39.0 Urinary tract infection, site not specified; J98.11 Atelectasis; I31.39 Other pericardial effusion (noninflammatory); I48.21 Permanent atrial fibrillation; Z87.440 Personal history of urinary (tract) infections; I25.10 Atherosclerotic heart disease of native coronary artery without angina pectoris; J44.9 Chronic obstructive pulmonary disease, unspecified; Z11.52 Encounter for screening for COVID-19; I11.0 Hypertensive heart disease with heart failure; E11.9 Type 2 diabetes mellitus without complications; Z87.891 Personal history of nicotine dependence; Z91.041 Radiographic dye allergy status; Z88.1 Allergy status to other antibiotic agents; Z88.5 Allergy status to narcotic agent; E78.00 Pure hypercholesterolemia, unspecified; L89.152 Pressure ulcer of sacral region, stage 2; N40.1 Benign prostatic hyperplasia with lower urinary tract symptoms; R09.02 Hypoxemia; Z79.01 Long term (current) use of anticoagulants; Z79.4 Long term (current) use of insulin; Z79.51 Long term (current) use of inhaled steroids; Z79.899 Other long term (current) drug therapy; Z88.0 Allergy status to penicillin; Z88.2 Allergy status to sulfonamides; N30.90 Cystitis, unspecified without hematuria
CPT/HCPCS: 71046; 74176; 80048; 80053; 80076; 81003; 81015; 82962; 83605; 83880; 84132; 84484; 85025; 87086; 87502; 87811; 93005; 94640; 96361; 96374; 97163; 97530; 99285; J9260

== ENCOUNTER → 2025-05-17 08:31 | Outpatient (REF) | payer MEDICARE, OTHER, SELFPAY | LOC: RCS 08:31 | PROVIDERS: ATTENDING PHYSICIAN Internal Medicine Cardiovascular Disease; FAMILY PHYSICIAN Nurse Practitioner Adult Health | DX: R42 Dizziness and giddiness (principal); I48.0 Paroxysmal atrial fibrillation; R00.0 Tachycardia, unspecified | CPT/HCPCS: 93005 ==

== ENCOUNTER 2025-06-03 18:26 | Inpatient (IN) | payer MEDICARE, OTHER, SELFPAY ==
[2025-06-03 12:58] VITALS: BP 123/53
[2025-06-03 14:53] LABS: Urine Character Cloudy (Clear)
--- NOTE | 2025-06-03 14:56 | ED.GENMED ---
History of Present Illness
<Nahum Blanchard PA-C - Last Filed: 06/03/25 17:51>
General
Chief Complaint: Urinary Symptoms
Source: patient
Exam Limitations: none
Time Seen by Provider: 06/03/25 14:33
History of Present Illness
History of Present Illness:
79-year-old male insulin-dependent diabetic with history of COPD and recurrent UTIs presents with onset of urinary symptoms starting overnight with increased urgency and frequency of urination. Notes a foul odor to the urine. He states he has been
admitted in the past for UTIs. He has been sick in the past for UTIs. He states he has been having trouble controlling his blood sugars recently. No abdominal pain vomiting chills or sweats. No other complaint
Past History
<MEENA Cheung Last Filed: 06/03/25 17:51>
Past History
ED Past Medical History: Arrthythmia, CAD, COPD, HTN, Hypercholesterolemia, IDDM and Other
ED Past Surgical History: Cardiac, Orthopedic and Other
Social History
Tobacco: Former smoker
Alcohol: None
Drug: None
Personal:
Living: with family
Employment: Not employed
Phy Exam
<MEENA Cheung Last Filed: 06/03/25 17:51>
Physical Exam
Physical Exam:
General: Well-appearing male no acute respiratory distress
HEENT: Normal cephalic atraumatic
Heart: Regular rate and rhythm no murmurs
Lungs: Clear no wheeze
Abdomen: Soft nontender
exam: Circumcised male. Mild diffuse tenderness about the scrotum but no obvious swelling or deformity
Course
<MEENA Cheung Last Filed: 06/03/25 17:51>
Orders/Labs/Results
Orders:
Orders
06/03/25 14:40
Urinalysis Reflex To Culture Urgent
Date Specimen was Collected: 06/03/25
Time Specimen was Collected: 14:37
Urine Microscopic Reflex Cult Urgent
Urine Culture Urgent
VISHAL Source: U
Specimen Description:
Date Specimen was Collected: 06/03/25
Time Specimen was Collected: 14:37
06/03/25 15:07
Complete Blood Count/With Diff Urgent
Comprehensive Metabolic Panel Urgent
06/03/25 16:29
Ankle, Right 3 view CR [CR Ankle - Right Min 3 Views *] Urgent
Comment:
Reason For Exam: rt ankle pain
06/03/25 16:32
CefTRIAXone [Rocephin] 1,000 mg IV NOW STA
06/03/25 16:42
Gentamicin [Genoptic 0.3% Eye Drops] See Dose Instructions OPHTH NOW STA
06/03/25 17:48
0.9% Sodium Chloride 1000 ml [Nss] 1,000 ml IV BOLUS
Abnormal Lab Results
06/03/25 06/03/25
14:40 15:07
WBC 13.3 H 10^3/uL
(4.8-10.8)
RBC 3.88 L 10^6/uL
(4.70-6.10)
Hgb 10.9 L g/dL
(13.0-18.0)
Hct 35.3 L %
(39.0-52.0)
MCHC 30.9 L g/dL
(33.0-37.0)
RDW 21.3 H %
(11.5-14.5)
Abs Immat Gran (auto) 0.1 H 10^3/uL
(0-0.05)
Absolute Neuts (auto) 11.5 H 10^3/uL
(1.4-6.5)
Immature Gran % 0.7 H %
(0-0.5)
Neutrophils % 86.1 H %
(42.2-75.2)
Lymphocytes % 10.4 L %
(20.5-51.1)
Chloride 93 L mmol/L
(98-107)
Carbon Dioxide 35 H mmol/L
(22-30)
BUN 21 H mg/dl
(9-20)
Glucose 155 H mg/dl
(70-99)
Alkaline Phosphatase 181 H U/L
(38-126)
Ur Occult Blood Reflex 4+ A
(Negative)
Urine Nitrite (Reflex) Positive A
(Negative)
Leukocyte Esterase Rfl 3+ A
(Negative)
Urine RBC >100 A /HPF
(0-2)
Urine WBC (Reflex) >100 A /HPF
(0-5)
Urine Bacteria (Reflex) Many A
(Negative)
Urine Albumin (Reflex) 3+ A
(Neg - Trace)
06/03/25 15:07
06/03/25 15:07
Vital Signs
Initial and Last Documented VS:
Initial Vital Signs
Temp Pulse Resp BP Pulse Ox
98.4 F 100 18 123/53 99
06/03/25 12:58 06/03/25 12:58 06/03/25 12:58 06/03/25 12:58 06/03/25 12:58
Last Documented Vital Signs
Temp Pulse Resp BP Pulse Ox
98.4 F 100 18 123/53 99
06/03/25 12:58 06/03/25 12:58 06/03/25 12:58 06/03/25 12:58 06/03/25 14:58
<Kory Urrutia, DO - Last Filed: 06/03/25 16:34>
Orders/Labs/Results
Orders:
Orders
06/03/25 14:40
Urinalysis Reflex To Culture Urgent
Date Specimen was Collected: 06/03/25
Time Specimen was Collected: 14:37
Urine Microscopic Reflex Cult Urgent
Urine Culture Urgent
VISHAL Source: U
Specimen Description:
Date Specimen was Collected: 06/03/25
Time Specimen was Collected: 14:37
06/03/25 15:07
Complete Blood Count/With Diff Urgent
Comprehensive Metabolic Panel Urgent
06/03/25 16:29
Ankle, Right 3 view CR [CR Ankle - Right Min 3 Views *] Urgent
Comment:
Reason For Exam: rt ankle pain
06/03/25 16:32
CefTRIAXone [Rocephin] 1,000 mg IV NOW STA
06/03/25 16:42
Gentamicin [Genoptic 0.3% Eye Drops] See Dose Instructions OPHTH NOW STA
06/03/25 17:48
0.9% Sodium Chloride 1000 ml [Nss] 1,000 ml IV BOLUS
Abnormal Lab Results
06/03/25 06/03/25
14:40 15:07
WBC 13.3 H 10^3/uL
(4.8-10.8)
RBC 3.88 L 10^6/uL
(4.70-6.10)
Hgb 10.9 L g/dL
(13.0-18.0)
Hct 35.3 L %
(39.0-52.0)
MCHC 30.9 L g/dL
(33.0-37.0)
RDW 21.3 H %
(11.5-14.5)
Abs Immat Gran (auto) 0.1 H 10^3/uL
(0-0.05)
Absolute Neuts (auto) 11.5 H 10^3/uL
(1.4-6.5)
Immature Gran % 0.7 H %
(0-0.5)
Neutrophils % 86.1 H %
(42.2-75.2)
Lymphocytes % 10.4 L %
(20.5-51.1)
Chloride 93 L mmol/L
(98-107)
Carbon Dioxide 35 H mmol/L
(22-30)
BUN 21 H mg/dl
(9-20)
Glucose 155 H mg/dl
(70-99)
Alkaline Phosphatase 181 H U/L
(38-126)
Ur Occult Blood Reflex 4+ A
(Negative)
Urine Nitrite (Reflex) Positive A
(Negative)
Leukocyte Esterase Rfl 3+ A
(Negative)
Urine RBC >100 A /HPF
(0-2)
Urine WBC (Reflex) >100 A /HPF
(0-5)
Urine Bacteria (Reflex) Many A
(Negative)
Urine Albumin (Reflex) 3+ A
(Neg - Trace)
06/03/25 15:07
06/03/25 15:07
Vital Signs
Initial and Last Documented VS:
Initial Vital Signs
Temp Pulse Resp BP Pulse Ox
98.4 F 100 18 123/53 99
06/03/25 12:58 06/03/25 12:58 06/03/25 12:58 06/03/25 12:58 06/03/25 12:58
Last Documented Vital Signs
Temp Pulse Resp BP Pulse Ox
98.4 F 100 18 123/53 99
06/03/25 12:58 06/03/25 12:58 06/03/25 12:58 06/03/25 12:58 06/03/25 14:58
<Nahum Blanchard PA-C - Last Filed: 06/03/25 17:51>
MDM/Problems Addressed
Differential Diagnosis Includes:
Urinary symptoms. Consider UTI. Concern for possible sepsis given his underlying medical comorbidities. Will check labs. Urinalysis pending
<Nahum Blanchard PA-C - Last Filed: 06/03/25 17:51>
*Pulse Oximetry
SaO2: 99
Nasal Cannula flow liters per minute: 2
Patient hypoxic: no
*Critical Care Note
Total Time (30-74mins, 75-104mins- exclusive of procedures): Not Applicable
<Nahum Blanchard PA-C - Last Filed: 06/03/25 17:51>
Update Note
Update Note:
Urinalysis consistent with pyuria. White blood cell count is over 13,000. Concern for UTI. Given patient's medical comorbidities and history of sepsis secondary to UTIs will keep in hospital. Fluids ordered Rocephin ordered.
ED Attending Note
<Nahum Blanchard PA-C - Last Filed: 06/03/25 17:51>
-
Portions of this chart may have been created with voice recognition software.� Occasional wrong word or��sound alike� substitutions may have occurred due to the inherent limitations of voice recognition software.
<Kory Urrutia, - Last Filed: 06/03/25 16:34>
ED Attending Note
Patient seen and examined by attending physician: Yes
ED Attending Note:
I reviewed and agree with history and plan by Baldev Blanchard. My exam revealed 79-year-old male afebrile abdomen soft nontender. Right ankle abrasion, right eye injected with no foreign bodies no ulcer seen. Will treat with ophthalmic antibiotic
once we confirm his allergies. IV Rocephin ordered for UTI. Admit to hospitalist
Discharge Plan
Departure
Patient Disposition: Admit
Date of Disposition: 06/03/25
Time of Disposition: 17:51
Presentation/result/management discussed w/ accepting MD/DO: Hospitalist
Discharge Problem:
Acute UTI
Prescriptions:
No Action
prednisone 5 MG tablet
5 mg PO DAILY
tamsulosin 0.4 MG capsule
0.4 mg PO QPM
atorvastatin [Lipitor] 40 MG tablet
40 mg PO QPM
finasteride 5 MG tablet
5 mg PO DAILY
omega-3 acid ethyl esters [Lovaza] 1 GM capsule
1 gm PO BID
leucovorin calcium 10 mg Tablet
10 mg PO DIRECTED
Rx Instructions:
03/17/2025, take 12 hours after methotrexate injection on Saturdays.
duloxetine 60 mg Capsule,Delayed Release(Dr/Ec)
60 mg PO QPM
therapeutic multivitamin Tablet
1 tab PO QPM
methotrexate sodium 25 mg/mL Solution
25 mg SC SA
ascorbic acid (vitamin C) [Vitamin C] 500 mg Tablet
500 mg PO QPM
Xarelto 20 MG tablet
20 mg PO QPM
Visbiome 112.5 billion cell Capsule
1 cap PO BID
fluticasone propion-salmeterol [Advair Diskus] 250-50 mcg/dose Blister With Device
1 inh INHALATION R BID
tramadol 50 mg Tablet
50 mg PO TID
methenamine hippurate 1 gram Tablet
1 g PO QPM
ergocalciferol (vitamin D2) 1,250 mcg (50,000 unit) Capsule
1,250 mcg PO TH
metoprolol succinate 50 mg tablet extended release 24 hr
25 mg PO DAILY
Patient Comments:
03/17/2025, hold for SBP<100 and/or DBP<60.
gabapentin [Neurontin] 800 MG tablet
800 mg PO TID
aspirin 81 mg Tablet,Delayed Release (Dr/Ec)
81 mg PO QPM
lisinopril 10 mg Tablet
10 mg PO DAILY
Patient Comments:
03/17/2025, hold for SBP<100 and/or DBP<60.
insulin glargine [Lantus U-100 Insulin] 100 unit/mL Solution
40 unit SC HS
nortriptyline 25 mg Capsule
25 mg PO BID
insulin lispro [Humalog U-100 Insulin] 100 unit/mL Solution
12 unit SC AC
Metamucil
2 tsp PO DAILY
bumetanide 1 mg tablet
1 mg PO Q48H
esomeprazole magnesium [Nexium] 20 mg Capsule,Delayed Release(Dr/Ec)
20 mg PO BID
cephalexin 500 mg capsule
500 mg PO QID Qty: 8 0RF
Rx Instructions:
for 2 days
Referrals:
Erin Mendez CRNP [Family Provider, General]
Interventions
Interventions:
*Risk Screen - Suicide Last Done: 06/03/25 12:58
*General Assessment Last Done: 06/03/25 15:10
*Neglect/Abuse Screening Last Done: 06/03/25 15:10
*ED COVID-19 Vaccine History Last Done: 06/03/25 15:10
*ED Influenza Vaccine History Last Done: 06/03/25 15:10
ED-Male Genitourinary Assessment Last Done: 06/03/25 15:10
Discharge Date and Time
Print Language: TUVALUAN
[2025-06-03 15:20] LABS: Hematocrit 35.3 % (39.0-52.0); Hemoglobin 10.9 g/dL (13.0-18.0); Mean Corp Hgb Conc. 30.9 g/dL (33.0-37.0); Mean Corpuscular Volume 91.0 fL (80.0-94.0); Nucleated Red Blood Cells % 0 % (-); Platelet Count 287 10^3/uL (130-400); Red Cell Dist. Width 21.3 % (11.5-14.5)
[2025-06-03 15:28] LABS: Urine Red Blood Cell >100 /HPF (0-2); Urine Squamous Cell 0-2 /LPF (Few); Urine White Cell >100 /HPF (0-5)
[2025-06-03 15:34] LABS: ALT (SGPT) 29 U/L (0-50); AST (SGOT) 27 U/L (17-59); Albumin 3.9 g/dl (3.5-5.0); Alkaline Phosphatase 181 U/L (38-126); Blood Urea Nitrogen 21 mg/dl (9-20); Calcium 8.8 mg/dl (8.4-10.2); Carbon Dioxide 35 mmol/L (22-30); Chloride 93 mmol/L (98-107); Glucose 155 mg/dl (70-99); Potassium 4.7 mmol/L (3.5-5.1); Sodium 135 mmol/L (135-145); Total Protein 7.8 g/dl (6.3-8.2); eGFR > 60.00
[2025-06-03 16:00] VITALS: BP 122/85
[2025-06-03 16:25] VITALS: BMI 39.7
[2025-06-03] MEDS: GENOPTIC 0.3% EYE DROPS 1 DROP OPHTH (16:45)
[2025-06-03] MEDS: ROCEPHIN 1000 MG IV (16:45)
[2025-06-03 18:00] VITALS: BP 119/75
[2025-06-03] MEDS: NSS 1000 IV (18:02)
--- NOTE | 2025-06-03 18:24 | HPS.HSE ---
Family Physician
-
Family Physician: PARISA Daugherty
Chief Complaint
-
urinary symptoms
History of Present Illness
79-year-old male past medical history of recurrent UTI, CAD, permanent atrial fibrillation on Xarelto, HFpEF, COPD, hypertension, hypercholesteremia, diabetes, rheumatoid arthritis, BPH, presenting urinary symptoms starting overnight with increased
urgency and frequency of urination. Foul odor of the urine. No abdominal pain or vomiting or chills or sweats. He also complains of his right testicle being swollen. Denies fevers or chills.
He injured his right ankle 2 days ago with a small scratch. He has pain of the right ankle.
His blood sugars have been in the 200s over the past few days.
He denies smoking alcohol use.
Medical History
Past Medical History
Past Medical History: Reports Other ( recurrent UTI, CAD, permanent atrial fibrillation on Xarelto, HFpEF, COPD, hypertension, hypercholesteremia, diabetes, rheumatoid arthritis, BPH)
Past Surgical History: Reports None
Social History
Tobacco: Non-smoker
Alcohol: None
Drug: None
Family History
Family History: Not pertinent
Allergies / Home Medications
Allergies reflects when Allergies were last updated in [facility].
Home Medications with original date entered in [facility]
Allergy/Medication List:
Allergies
Allergy/AdvReac Type Severity Reaction Status Date / Time
alprazolam (From Xanax) Allergy hieves, SOB Verified 06/03/25 12:58
amoxicillin (From Augmentin) Allergy Unknown Verified 06/03/25 12:58
anakinra Allergy Unknown Verified 06/03/25 12:58
celecoxib (From Celebrex) Allergy hives, SOB Verified 06/03/25 12:58
cisapride (From Propulsid) Allergy Unknown Verified 06/03/25 12:58
clarithromycin (From Biaxin) Allergy SOB, hives Verified 06/03/25 12:58
clavulanic acid (From Allergy Unknown Verified 06/03/25 12:58
Augmentin)
clindamycin HCl (From Allergy Hives, SOB Verified 06/03/25 12:58
Cleocin)
codeine Allergy Unknown Verified 06/03/25 12:58
dapagliflozin (From Farxiga) Allergy change in Verified 06/03/25 12:58
mental
status
famotidine (From Pepcid) Allergy hives SOB Verified 06/03/25 12:58
hydrocodone (From Vicodin) Allergy Unknown Verified 06/03/25 12:58
hydroxychloroquine sulfate Allergy hives, SOB Verified 06/03/25 12:58
(From Plaquenil)
Iodinated Contrast Media Allergy Hives Verified 06/03/25 12:58
levofloxacin (From Levaquin) Allergy Unknown Verified 06/03/25 12:58
Penicillins Allergy Hives Verified 06/03/25 12:58
Sulfa (Sulfonamide Allergy Unknown Verified 06/03/25 12:58
Antibiotics)
Home Medications
prednisone 5 mg tablet 5 mg PO DAILY RA 12/23/14
tamsulosin 0.4 mg capsule 0.4 mg PO QPM Urinary Issue 12/23/14
atorvastatin 40 mg tablet (Lipitor) 40 mg PO QPM High Cholesterol 07/01/19
finasteride 5 mg tablet 5 mg PO DAILY Urinary Issue 07/22/19
omega-3 acid ethyl esters 1 gram capsule (Lovaza) 1 gm PO BID High Cholesterol 07/22/19
leucovorin calcium 10 mg tablet 10 mg PO DIRECTED rheumatoid arthritis 04/17/23
duloxetine 60 mg capsule,delayed release 60 mg PO QPM Depression 06/05/24
ascorbic acid (vitamin C) 500 mg tablet (Vitamin C) 500 mg PO QPM Supplement 09/10/24
methotrexate sodium 25 mg/mL injection solution 25 mg SC SA RA 09/10/24
rivaroxaban 20 mg tablet (Xarelto) 20 mg PO QPM Blood Clot Prevention/Tx 09/10/24
therapeutic multivitamin 1 tab PO QPM Supplement 09/10/24
Lactobac no.2-Bifidobac no.1-S. thermo 112.5 billion cell capsule (Visbiome) 1 cap PO BID Supplement 11/04/24
aspirin 81 mg tablet,delayed release 81 mg PO QPM Heart Disease/Condition 02/04/25
ergocalciferol (vitamin D2) 1,250 mcg (50,000 unit) capsule 1,250 mcg PO TH Supplement 02/04/25
fluticasone 250 mcg-salmeterol 50 mcg/dose blistr powdr for inhalation (Advair Diskus) 1 inh inhalation R BID Lung/Breathing Issues 02/04/25
gabapentin 800 mg tablet (Neurontin) 800 mg PO TID Neurological Condition 02/04/25
lisinopril 10 mg tablet 10 mg PO DAILY Blood Pressure 02/04/25
methenamine hippurate 1 gram tablet 1 g PO QPM Infection 02/04/25
metoprolol succinate 50 mg tablet,extended release 24 hr 25 mg PO DAILY Blood Pressure 02/04/25
tramadol 50 mg tablet 50 mg PO TID Pain 02/04/25
Metamucil 2 tsp PO DAILY Constipation 03/17/25
bumetanide 1 mg tablet 1 mg PO Q48H Heart Failure 03/17/25
esomeprazole magnesium 20 mg capsule,delayed release (Nexium) 20 mg PO BID Gastrointestinal Issue 03/17/25
insulin glargine 100 unit/mL subcutaneous solution (Lantus U-100 Insulin) 40 unit SC HS Diabetes 03/17/25
insulin lispro 100 unit/mL subcutaneous solution (Humalog U-100 Insulin) 12 unit SC AC Diabetes 03/17/25
nortriptyline 25 mg capsule 25 mg PO BID Depression 03/17/25
cephalexin 500 mg capsule 500 mg PO QID #8 caps 03/21/25
Review of Systems
-
History Source: Patient
A 12 point ROS was completed and negative except as noted: Yes
Constitutional: Reports No Symptoms
EENT: Reports No Symptoms
Respiratory: Reports No Symptoms
Cardiac: Reports No Symptoms
Abdomen/GI: Reports No Symptoms
: Reports See HPI
Musculoskeletal: Reports No Symptoms
Skin: Reports No Symptoms
Neurological: Reports No Symptoms
Endocrine: Reports No Symptoms
Hematologic/Lymphatic: Reports No Symptoms
Psych: Reports No Symptoms
Physical Exam
Vital Signs
Vital Signs
Temp Pulse Resp BP Pulse Ox
98.4 F 85 19 119/75 98
06/03/25 12:58 06/03/25 18:00 06/03/25 18:00 06/03/25 18:00 06/03/25 18:00
Physical Exam
General: Well Developed, Well Nourished and No Apparent Distress
HEENT: NormoCephalic, Moist mucous membranes and Atraumatic
Respiratory: Clear
Cardiac: S1/S2 and Regular Rhythm; No Murmur or Rub
GI: Soft, Non Tender, Non Distended and Normal Bowel Sounds; No Organomegaly
Rectal: Deferred by Provider
Musculoskeletal: No Clubbing, No Cyanosis and No Edema
Skin: No Rash
Neuro: Nonfocal/grossly intact
Laboratory Results
-
06/03/25 15:07
06/03/25 15:07
Laboratory Results
Total Bilirubin 0.9 mg/dl (0.2-1.3) 06/03/25 15:07
AST 27 U/L (17-59) 06/03/25 15:07
ALT 29 U/L (0-50) 06/03/25 15:07
Alkaline Phosphatase 181 U/L (38-126) H 06/03/25 15:07
Data Reviewed
-
Lab Data: Labs Reviewed by me
Old Records: Reviewed
Impression/Plan
-
IMPRESSION:
PLAN:
# Urinary tract infection
# History of frequent UTIs
# Right testicular swelling
-IV fluids given
- Ceftriaxone
- Check testicular ultrasound due to swelling
# Hyperglycemia secondary to infection
#Type 2 diabetes
- Continue Lantus 40 units
- Moderate insulin sliding scale
# Right ankle superficial wound
- Wound care, continue to monitor for diabetic foot infection
- Does not appear infected
- X-ray pending
CAD
- Continue aspirin, statin
Permanent atrial fibrillation
- Continue metoprolol
- Continue Xarelto
Chronic HFpEF
- Hold Bumex
COPD on 2 L baseline a day, 3 L at night
Essential hypertension
- Continue lisinopril
Hypercholesteremia
Rheumatoid arthritis
- On methotrexate, leucovorin
- Continue prednisone
BPH
- Continue finasteride, tamsulosin
Chronic anemia
- Hemoglobin stable 10.9
Anxiety/depression
Diabetic neuropathy
- Continue duloxetine, nortriptyline,
Full code
DVT prophylaxis�Xarelto
Diabetic diet
[2025-06-03 21:47] VITALS: BMI 39.7
[2025-06-03 21:52] LABS: Glucose - Point of Care 232 mg/dl (70-99)
[2025-06-03 21:57] VITALS: BP 126/87; BMI 38.7
--- NOTE | 2025-06-03 22:35 | PTCARENOTE ---
Addendum entered by Sadie Arce RN 06/03/25 23:17:
tramadol, gabapentin, and lantus were ordered. pt updated and medications given.
Original Note:
rec'd pt from the ER. he was able to walk to the bed from stretcher. utilizes rollator at home. Only complaint of pain at this time is his lower back which pt says is chronic. medication review done however pt unable to confirm all of his meds as he
said his daughter would be better at that. RN asked if she would be awake so she could call her and pt said no. pt did ask to have his tramadol, gabapentin and Lantus insulin ordered. RN reached out to Alethea MCCAULEY to take a look at his chart.
wounds as charted. wound consult was placed in ER. call cote in reach. oriented to unit.
[2025-06-03] MEDS: NEURONTIN 800 MG PO (23:02)
[2025-06-03] MEDS: ULTRAM 50 MG PO (23:02)
[2025-06-03] MEDS: LANTUS 0.4 UNITS SC (23:03)
[2025-06-03 23:26] VITALS: BP 102/58
[2025-06-04] VITALS (10 sets, daily range): BP systolic 101–162; BP diastolic 64–110
[2025-06-04 08:05] LABS: Glucose - Point of Care 178 mg/dl (70-99)
[2025-06-04 08:11] LABS: Hematocrit 31.0 % (39.0-52.0); Hemoglobin 9.5 g/dL (13.0-18.0); Mean Corp Hgb Conc. 30.6 g/dL (33.0-37.0); Mean Corpuscular Volume 93.4 fL (80.0-94.0); Nucleated Red Blood Cells % 0 % (-); Platelet Count 242 10^3/uL (130-400); Red Cell Dist. Width 21.1 % (11.5-14.5)
[2025-06-04 08:38] LABS: ALT (SGPT) 23 U/L (0-50); AST (SGOT) 24 U/L (17-59); Albumin 3.4 g/dl (3.5-5.0); Alkaline Phosphatase 127 U/L (38-126); Blood Urea Nitrogen 20 mg/dl (9-20); Calcium 8.2 mg/dl (8.4-10.2); Carbon Dioxide 33 mmol/L (22-30); Chloride 96 mmol/L (98-107); Estimated Creatinine Clearance 87 ml/min; Glucose 149 mg/dl (70-99); Potassium 4.5 mmol/L (3.5-5.1); Sodium 135 mmol/L (135-145); Total Protein 6.5 g/dl (6.3-8.2); eGFR > 60.00
[2025-06-04] MEDS: NEURONTIN 800 MG PO ×3 (08:45→21:31)
[2025-06-04] MEDS: ULTRAM 50 MG PO ×3 (08:45→21:32)
--- NOTE | 2025-06-04 10:37 | WOUNDNOTE ---
RIGHT LATERAL ANKLE
--- NOTE | 2025-06-04 10:38 | WOUNDNOTE ---
BILATERAL LOWER LEGS
--- NOTE | 2025-06-04 10:38 | WOUNDNOTE ---
LEFT 3RD TOE
--- NOTE | 2025-06-04 10:39 | WOUNDNOTE ---
RIGHT MEDIAL LOWER LEG
--- NOTE | 2025-06-04 10:39 | WOUNDNOTE ---
RIGHT 2ND TOE
--- NOTE | 2025-06-04 10:40 | WOUNDNOTE ---
WON RN note: Patient admitted with UTI
See H&P for complete history. Lives with daughter.
PMH: IDDM,COPD, A FIB,CAD,HTN and Buttock/sacral PI's.
Wound Location and type/assessment: Patient last seen on 03/18/25 for nearly healed stage 2 PI's on buttocks and sacrum. Now L buttock nearly healed stage 2 PI, scant weeping patch of skin. R buttock with healed PI, scar visible, chronic discolored
brown skin on buttocks. R lateral ankle with chronic venous ulcer, saif mixed with pink base. Medial R lower leg with flat serous blister, no drainage. R 2nd toe with intact scab and L leg few scabs, no drainage. Trace edema to legs, using Tubigrip's
at home patient states. Skin warm and dry, + palpable pedal pulses. Patient able to turn self in bed, heels intact, blanchable red. L 3rd toe nail bed with dried blood, patient stubbed toe he states.
Appetite: Good.
Pressure redistribution devices in place: Versa care air, pillow under calves.
Plan: changed silicone foam on L buttock, adhesive foams on heels to protect. R lateral ankle will order honey gel then dry dressing daily, Tubigrip size F knee high both legs daily. R 2nd toe and L 3rd toe/leg open to air. Called [facility] for supplies
and asked nurse Karine to apply honey gel under silicone foam to R ankle and Tubigrips when arrives. Pressure ulcer prevention measures reviewed with patient, states he understands.
Will confirm orders with hospitalist and updated nurse. Updated care plan and will follow as needed.
Note to case management of equipment requested for discharge: VN for wound care.
[2025-06-04 12:04] LABS: Glucose - Point of Care 237 mg/dl (70-99)
--- NOTE | 2025-06-04 13:34 | W.PN.HOSP.TC ---
Today's Communication/Plan
-
abx
f/u cultures
Assessment / Plan
Assessment / Plan
General: Well Developed, Well Nourished and No Apparent Distress
HEENT: NormoCephalic, Moist mucous membranes and Atraumatic
Respiratory: Clear
Cardiac: S1/S2 and Regular Rhythm; No Murmur or Rub
GI: Soft, Non Tender, Non Distended and Normal Bowel Sounds; No Organomegaly
: Left testicular tenderness
Musculoskeletal: No Clubbing, No Cyanosis and No Edema
Skin: No Rash
Neuro: Nonfocal/grossly intact
#left-sided epididymitis, ont sexually active
# Urinary tract infection
# History of frequent UTIs
# Right testicular swelling
-IV fluids given
- Ceftriaxone
-Follows with Urology outpatient for frequent UTIs and is pending subspeciality eval
-F/u cultures
# Hyperglycemia secondary to infection
#Type 2 diabetes
- Continue Lantus 40 units
- Moderate insulin sliding scale
# Right ankle superficial wound
- Wound care, continue to monitor for diabetic foot infection
- Does not appear infected
- no fx on imaging
CAD
- Continue aspirin, statin
Permanent atrial fibrillation
- Continue metoprolol
- Continue Xarelto
Chronic HFpEF
- Hold Bumex for today, can restart tomorrow
COPD on 2 L baseline a day, 3 L at night
Essential hypertension
- Continue lisinopril
Hypercholesteremia
Rheumatoid arthritis
- On methotrexate, leucovorin
- Continue prednisone
BPH
- Continue finasteride, tamsulosin
Chronic anemia
- Hemoglobin stable 10.9
Anxiety/depression
Diabetic neuropathy
- Continue duloxetine, nortriptyline,
Full code
DVT prophylaxis�Xarelto
Diabetic diet
Anticipated Discharge: 24 - 48 hours
Subjective/Interval History
-
Date of Service: June 04, 2025
testicular tenderness improved; dysuria still present
Objective Data
-
Labs:
Laboratory Results
06/04/25
06:50
WBC 9.7
Hgb 9.5 L
Hct 31.0 L
Plt Count 242
Sodium 135
Potassium 4.5
Chloride 96 L
Carbon Dioxide 33 H
BUN 20
Creatinine 1.0
Glucose 149 H
Calcium 8.2 L
Total Bilirubin 0.8
AST 24
ALT 23
Alkaline Phosphatase 127 H
Vital Signs:
Vital Signs
Temp Pulse Resp BP Pulse Ox
97.2 F 87 16 144/87 98
06/04/25 07:33 06/04/25 07:33 06/04/25 07:33 06/04/25 07:33 06/04/25 07:33
I&O
06/03/25 06/04/25 06/05/25
06:59 06:59 06:59
Intake Total 480 / 480
Output Total 750 / 750 350 / 350
Balance -270 / -270 -350 / -350
Review of Systems
-
History Source: Patient
All other systems: Not reviewed unless documented
Physical Exam
-
General: Morbidly Obese
HEENT: Normocephalic
Respiratory: Clear to Auscultation
Cardiac: Regular Rhythm and S1/S2
GI: Soft, Nontender and Nondistended
Genito-urinary: No Costovertebral Tender
Skin: Warm
Neuro: AO x 3
Hematologic / Lymphatic: No Lymphadenopathy
Psych: Calm
Data Reviewed
-
Ultrasound: Report Reviewed by me
Labs: Labs Reviewed by me
--- NOTE | 2025-06-04 15:02 | ITS.CL.CATH ---
Pricing/Signage Team Member - Catheterization
Cardiac Catheterization
Procedure Report:
RIGHT HEART CATHETERIZATION
Date of Procedure: 06/04/2025
Referring: Saturnino Angel D.O.
INDICATION: Known heart failure, clarification of volume status.
ACCESS:
5 Guatemalan right antecubital vein using a modified Seldinger technique under ultrasound guidance.
CATHETERS:
5 Guatemalan balloon wedge.
PROCEDURE:
The patient was prepped and draped in standard sterile fashion. The area for antecubital access was anesthetized with 1% lidocaine. Under ultrasound guidance, the right antecubital vein was punctured and a wire was advanced into the basilic vein.
A 5 Guatemalan sheath was inserted into the basilic vein. A 5 Guatemalan balloon wedge catheter was advanced through the sheath into the superior vena cava over a coronary wire due to some venous tortuosity. An SVC oxygen saturation was drawn. The balloon
wedge catheter was advanced into the pulmonary artery and a pulmonary artery oxygen saturation was drawn. Arterial oxygen saturation was assumed from pulse oximetry. An IVC sat was obtained for mixed venous saturation. Cardiac output was
calculated using the Lilia equation. The PA, wedge, RV and RA pressures were measured on pullback. The balloon wedge catheter was removed. The 5 Guatemalan sheath was removed and manual pressure was held for hemostasis.
Weight (kg): 136.5
PA (s/d/x mmHg): 58/34/42
PCWP (a/v/x mmHg): 37/47/30
RV (s/x mmHg): 58/18
RA (a/v/x mmHg): 23/22/18
Ao (a/v/x mmHg): 140/79/103 (non-invasive)
SVC SvO2 (%): 48.8
IVC SvO2 (%): 55.5
RA SvO2 (%): Not obtained.
RV SvO2 (%): Not obtained.
MV SvO2 (%): 50.1
PA SvO2 (%): 55.4
SaO2 (%): 93.0 (assumed)
Hbg (g/dL): 9.1
Lilia
CO (liters/minute): 6.22
CI (liters/minute/m2): 2.41
Thermodilution
CO (liters/minute): Not performed.
CI (liters/minute/m2): Not performed.
TPG (mmHg): 12
PVR (Mcneil Units): 1.93
AVO2 Difference (Volume %): 5.31
Cardiac Power Output (ricci): 1.42 (MAP * CO)/451 (normal 0.5 - 0.7; 0.4 - 0.6 in the elderly)
Cardiac Power Index (ricci/m2): 0.55 (MAP * CI)/451
Nawaf: 1.33 (PAs-PAd)/RA
Radiation (mGy): 31.37
DAP (cm2.Gy): 4.4558
Fluoroscopy time (minutes): 1.9
CONCLUSION:
1. Severely elevated filling pressures (PCWP = 30 mmHg at 136.5 kg).
2. Moderate, postcapillary pulmonary hypertension (mean PA = 42 mmHg, PCWP = 30 mmHg, cardiac output = 6.22 L/min, PVR = 1.93 Mcneil units).
3. Preserved cardiac function (cardiac index = 2.41 L/min, cardiac power output = 1.42 W, Nawaf = 1.33).
RECOMMENDATIONS:
1. Expectant management after right heart catheterization via right antecubital approach.
2. Accelerate diuresis. Increase bumetanide to 1 mg daily (rather than every other day).
3. GDMT as hemodynamics and renal function will tolerate.
4. Continue treatment of underlying UTI.
Copy to: Saturnino Angel D.O., PARISA Baptiste
Saturnino Angel D.O., FACC, FACP
--- NOTE | 2025-06-04 15:36 | CM ---
Attempted IA, patient off floor to clinical laboratory service teacher. Information gathered from previous admission in February.
Patient is a 79-year-old male past medical history of recurrent UTI, CAD, permanent atrial fibrillation on Xarelto, HFpEF, COPD, hypertension, hypercholesteremia, diabetes, rheumatoid arthritis, BPH, presenting urinary symptoms.
Patient resides in an in law suite attached to daughter's home. 4 steps to enter. Patient independent w/ ambulating w/ RW and cane, daughter assists w/ ADLs. Patient has stair glide, CPAP, continuous home O2 (2L during the day, 3L during the night).
No SNF/HC, prev known to [facility].
PCP: Erin Mendez
Pharmacy: [facility]
Wound care for dressing. Recommended VN at d/c for wound care. Will discuss w/ patient if he would like to utilize [facility] services again at d/c
Plan: Home w/ VN services
[2025-06-04] MEDS: ROCEPHIN 1000 MG IV (16:05)
[2025-06-04] MEDS: STERILE WATER FOR INJECTION 10 ML IV (16:05)
[2025-06-04] MEDS: BUMEX 1 MG PO (16:05)
--- NOTE | 2025-06-04 16:18 | PTCARENOTE ---
Received back from cathode washer. VSS. Dressing to R brachial clean, dry, intact, +R radial pulse. Updated on plan of care.
[2025-06-04 17:15] LABS: Glucose - Point of Care 243 mg/dl (70-99)
[2025-06-04] MEDS: NOVOLOG FLEXPEN-MODERATE RESISTANCE 3 UNITS SC (17:51)
[2025-06-04 21:19] LABS: Glucose - Point of Care 244 mg/dl (70-99)
[2025-06-04] MEDS: LANTUS 0.4 UNITS SC (21:32)
[2025-06-05 03:21] LABS: Glucose - Point of Care 189 mg/dl (70-99)
[2025-06-05 07:50] LABS: Hematocrit 32.9 % (39.0-52.0); Hemoglobin 10.1 g/dL (13.0-18.0); Mean Corp Hgb Conc. 30.7 g/dL (33.0-37.0); Mean Corpuscular Volume 92.2 fL (80.0-94.0); Platelet Count 239 10^3/uL (130-400); Red Cell Dist. Width 20.8 % (11.5-14.5)
[2025-06-05 07:55] VITALS: BP 118/82
[2025-06-05 08:03] LABS: Glucose - Point of Care 200 mg/dl (70-99)
[2025-06-05 08:21] LABS: Blood Urea Nitrogen 18 mg/dl (9-20); Calcium 8.7 mg/dl (8.4-10.2); Carbon Dioxide 37 mmol/L (22-30); Chloride 93 mmol/L (98-107); Estimated Creatinine Clearance 108 ml/min; Glucose 183 mg/dl (70-99); Potassium 4.5 mmol/L (3.5-5.1); Sodium 134 mmol/L (135-145); eGFR > 60.00
[2025-06-05] MEDS: ADVAIR HFA 115/21 MCG INHALER 2 PUFF INH ×2 (08:51→20:40)
[2025-06-05] MEDS: TOPROL XL 25 MG PO (09:14)
[2025-06-05] MEDS: DELTASONE 5 MG PO (09:14)
[2025-06-05] MEDS: PAMELOR 25 MG PO ×2 (09:14→20:53)
[2025-06-05] MEDS: PROSCAR 5 MG PO (09:14)
[2025-06-05] MEDS: METAMUCIL, KONSYL 1 PACKET PO (09:14)
[2025-06-05] MEDS: ULTRAM 50 MG PO ×3 (09:14→21:47)
[2025-06-05] MEDS: VISBIOME 1 CAP PO ×2 (09:14→20:53)
[2025-06-05] MEDS: PROTONIX 40 MG PO ×2 (09:14→20:53)
[2025-06-05] MEDS: NEURONTIN 800 MG PO ×3 (09:15→21:47)
[2025-06-05] MEDS: BUMEX 1 MG PO (09:15)
[2025-06-05] MEDS: DRISDOL (VITAMIN D2) 50000 UNITS PO (09:18)
[2025-06-05] MEDS: NOVOLOG FLEXPEN-MODERATE RESISTANCE 3 UNITS SC (09:18)
--- NOTE | 2025-06-05 11:04 | PN.CDI ---
CDI
- -
CDI:
Physician Documentation Request
Admit Date: 06/03/25 18:26
Dear Doctor Amanda,
Please review the following and provide your response in the progress notes.
Clinical Indicators:
Pt admitted with #left-sided epididymitis...Urinary tract infection...'
Documented per H&P and progress note 06/04,' COPD on 2 L baseline a day, 3 L at night...'
Documented per external medical summary report 06/03, ' Chronic respiratory failure with hypoxia...'
Please provide a diagnosis for the documented baseline oxygen use:
Chronic Hypoxic respiratory failure
Chronic Hypercapnic respiratory failure
Hypoxia
Other ( please specify)
Use of terms such as suspected, likely, concern for, or probable (associated with a specific diagnosis that is being evaluated, monitored, or treated as if it exists) are acceptable and can be coded in the inpatient setting, when documented at the
time of discharge.
Thank you,
Cherelle Deras RN
CDI Specialist
[place] [facility]
Please use your independent medical judgment in providing your response.
--- NOTE | 2025-06-05 11:18 | PN.CDI ---
CDI
- -
CDI:
Physician Documentation Request
Admit Date: 06/03/25 18:26
Dear Doctor Amanda,
Please review the following and provide your response in the progress notes.
Clinical Indicators:
Pt admitted with #left-sided epididymitis...Urinary tract infection on IV ceftriaxone
On admission WBC 13.3,HR 100
Please clarify which of the following most accurately describes the status of the patient's infection:
Sepsis-POA
- Systemic manifestations of infection, with 2 or more SIRS criteria which include:
- Fever >100.9 degrees F or hypothermia < 96.8 degrees F
- Leukocytosis - WBC > 12,000 or leukopenia - WBC < 4,000 or > 10% bands
- Tachycardia > 90 beats per minute
- Tachypnea - RR > 20 breaths per minute or PaCO2 , 32mmHg
Source: Merck Manual 2013
UTI Only, Without Systemic Illness
Other ( please specify)
Use of terms such as suspected, likely, concern for, or probable (associated with a specific diagnosis that is being evaluated, monitored, or treated as if it exists) are acceptable and can be coded in the inpatient setting, when documented at the
time of discharge.
Thank you,
Cherelle Deras RN
CDI Specialist
[place] [facility]
Please use your independent medical judgment in providing your response.
[2025-06-05 11:45] LABS: Glucose - Point of Care 259 mg/dl (70-99)
[2025-06-05 11:53] VITALS: BMI 38.7
[2025-06-05] MEDS: NOVOLOG FLEXPEN-MODERATE RESISTANCE 5 UNITS SC (13:16)
--- NOTE | 2025-06-05 14:03 | W.PN.HOSP.TC ---
Addendum entered and electronically signed by Marcelo Patel MD 06/05/25 16:31:
Chronic Hypoxic respiratory failure
Sepsis-POA
Original Note:
Today's Communication/Plan
-
Increase Bumex dosing to 1mg daily
Cont abx
f/u cultures
Assessment / Plan
Assessment / Plan
General: Well Developed, Well Nourished and No Apparent Distress
HEENT: NormoCephalic, Moist mucous membranes and Atraumatic
Respiratory: Clear
Cardiac: S1/S2 and Regular Rhythm; No Murmur or Rub
GI: Soft, Non Tender, Non Distended and Normal Bowel Sounds; No Organomegaly
: Left testicular tenderness
Musculoskeletal: No Clubbing, No Cyanosis and No Edema
Skin: No Rash
Neuro: Nonfocal/grossly intact
#left-sided epididymitis, ont sexually active
# Urinary tract infection
# History of frequent UTIs
# Right testicular swelling
-IV fluids given
- Ceftriaxone
-Follows with Urology outpatient for frequent UTIs and is pending subspeciality eval
-F/u cultures
# Hyperglycemia secondary to infection
#Type 2 diabetes
- Continue Lantus 40 units
- Moderate insulin sliding scale
# Right ankle superficial wound
- Wound care, continue to monitor for diabetic foot infection
- Does not appear infected
- no fx on imaging
CAD
- Continue aspirin, statin
Permanent atrial fibrillation
- Continue metoprolol
- Continue Xarelto
Chronic HFpEF
-Increased Filling pressures on RHC 06/04
-Increase frequency of Bumex to 1mg daily
COPD on 2 L baseline a day, 3 L at night
Essential hypertension
- Continue lisinopril
Hypercholesteremia
Rheumatoid arthritis
- On methotrexate, leucovorin
- Continue prednisone
BPH
- Continue finasteride, tamsulosin
Chronic anemia
- Hemoglobin stable 10.9
Anxiety/depression
Diabetic neuropathy
- Continue duloxetine, nortriptyline,
Full code
DVT prophylaxis�Xarelto
Diabetic diet
Anticipated Discharge: 24 - 48 hours
Subjective/Interval History
-
Date of Service: June 05, 2025
RHC with elevated filling pressures - increased diuretics
Dysuria improved, testicular tenderness still persists
Objective Data
-
Labs:
Laboratory Results
06/05/25
07:23
WBC 9.3
Hgb 10.1 L
Hct 32.9 L
Plt Count 239
Sodium 134 L
Potassium 4.5
Chloride 93 L
Carbon Dioxide 37 H
BUN 18
Creatinine 0.8
Glucose 183 H
Calcium 8.7
Vital Signs:
Vital Signs
Temp Pulse Resp BP Pulse Ox
97.6 F 98 16 118/82 98
06/05/25 07:55 06/05/25 08:52 06/05/25 08:52 06/05/25 07:55 06/05/25 07:55
I&O
06/04/25 06/05/25 06/06/25
06:59 06:59 06:59
Intake Total 480 / 480 480 / 480
Output Total 750 / 750 2700 / 2700
Balance -270 / -270 -2220 / -2220
Review of Systems
-
History Source: Patient
All other systems: Not reviewed unless documented
Data Reviewed
-
Ultrasound: Report Reviewed by me
Medical Tests (Nuc Med, Echo etc): Report Reviewed by me
Labs: Labs Reviewed by me
[2025-06-05 15:18] VITALS: BP 116/73
--- NOTE | 2025-06-05 15:59 | CM ---
manager sql will await PT evaluation, patient is for possible return to home with daughter and [facility] visiting nurses, referral sent to [facility].
[facility]
[phone]
[2025-06-05 16:37] LABS: Glucose - Point of Care 347 mg/dl (70-99)
[2025-06-05] MEDS: NOVOLOG FLEXPEN-MODERATE RESISTANCE 7 UNITS SC (17:13)
[2025-06-05] MEDS: ROCEPHIN 1000 MG IV (17:13)
[2025-06-05] MEDS: CYMBALTA DELAYED RELEASE 60 MG PO (17:14)
[2025-06-05] MEDS: VITAMIN C 500 MG PO (17:14)
[2025-06-05] MEDS: STERILE WATER FOR INJECTION 10 ML IV (17:14)
[2025-06-05] MEDS: ASPIR LOW (ENTERIC COATED) 81 MG PO (17:14)
[2025-06-05] MEDS: XARELTO 20 MG PO (17:14)
[2025-06-05] MEDS: THERAGRAN 1 TABLET PO (17:14)
[2025-06-05] MEDS: FLOMAX 0.4 MG PO (17:15)
[2025-06-05] MEDS: LIPITOR 40 MG PO (17:15)
[2025-06-05 18:47] LABS: Hepatitis C Antibody Negative (Negative)
[2025-06-05 21:24] LABS: Glucose - Point of Care 237 mg/dl (70-99)
[2025-06-05] MEDS: LANTUS 0.4 UNITS SC (21:47)
[2025-06-05 23:00] VITALS: BP 128/74
[2025-06-06 02:59] LABS: Glucose - Point of Care 209 mg/dl (70-99)
[2025-06-06] MEDS: ADVAIR HFA 115/21 MCG INHALER 2 PUFF INH (07:16)
[2025-06-06 07:55] VITALS: BP 120/83
[2025-06-06 07:55] LABS: Glucose - Point of Care 227 mg/dl (70-99)
[2025-06-06 08:51] LABS: Hematocrit 32.1 % (39.0-52.0); Hemoglobin 9.9 g/dL (13.0-18.0); Mean Corp Hgb Conc. 30.8 g/dL (33.0-37.0); Mean Corpuscular Volume 92.0 fL (80.0-94.0); Platelet Count 222 10^3/uL (130-400); Red Cell Dist. Width 20.0 % (11.5-14.5)
[2025-06-06 09:26] LABS: Blood Urea Nitrogen 17 mg/dl (9-20); Calcium 8.6 mg/dl (8.4-10.2); Chloride 93 mmol/L (98-107); Estimated Creatinine Clearance 108 ml/min; Glucose 204 mg/dl (70-99); Potassium 4.5 mmol/L (3.5-5.1); Sodium 135 mmol/L (135-145); eGFR > 60.00
[2025-06-06 09:46] LABS: Carbon Dioxide 37 mmol/L (22-30)
[2025-06-06 10:16] VITALS: O2SAT 99
--- NOTE | 2025-06-06 10:28 | PN.CDI ---
CDI
- -
CDI:
Physician Documentation Request
Admit Date: 06/03/25 18:26
Dear Doctor Amanda ,
Please review the following and provide your response in the progress notes.
Clinical Indicators:
Pt admitted with #left-sided epididymitis...Urinary tract infection on IV ceftriaxone
Wound care note 06/04,' Patient last seen on 03/18/25 for nearly healed stage 2 PI's on buttocks and sacrum. Now L buttock nearly healed stage 2 PI, scant weeping patch of skin. R buttock with healed PI, scar visible...'
Physician documentation of the type and location of wounds is required for compliant documentation. Based on the above clinical findings and your assessment, please provide the following in your progress note:
1. Location of the ulcer/wound, including laterality.
2. Type (etiology) of ulcer/wound:
- Pressure (decubitus) ulcer
- Non-pressure ulcer
- Other ( please specify)
Use of terms such as suspected, likely, concern for, or probable (associated with a specific diagnosis that is being evaluated, monitored, or treated as if it exists) are acceptable and can be coded in the inpatient setting, when documented at the
time of discharge.
Thank you,
Cherelle Deras RN
CDI Specialist
[place] Text
Please use your independent medical judgment in providing your response.
*Source: National Pressure Ulcer Advisory Panel (NPUAP)
[2025-06-06] MEDS: NOVOLOG FLEXPEN-MODERATE RESISTANCE 3 UNITS SC (11:04)
[2025-06-06] MEDS: TOPROL XL 25 MG PO (11:05)
[2025-06-06] MEDS: PROSCAR 5 MG PO (11:06)
[2025-06-06] MEDS: PROTONIX 40 MG PO (11:06)
[2025-06-06] MEDS: PAMELOR 25 MG PO (11:06)
[2025-06-06] MEDS: BUMEX 1 MG PO (11:06)
[2025-06-06] MEDS: NEURONTIN 800 MG PO (11:06)
[2025-06-06] MEDS: ULTRAM 50 MG PO (11:07)
[2025-06-06] MEDS: DELTASONE 5 MG PO (11:07)
[2025-06-06] MEDS: VISBIOME 1 CAP PO (11:07)
[2025-06-06] MEDS: METAMUCIL, KONSYL 1 PACKET PO (11:08)
[2025-06-06 11:51] LABS: Glucose - Point of Care 308 mg/dl (70-99)
--- NOTE | 2025-06-06 13:05 | W.PN.HOSP.TC ---
Addendum entered and electronically signed by Marcelo Patel MD 06/18/25 15:41:
L buttock nearly healed stage 2 PI
Sepsis-POA
Chronic Hypoxic respiratory failure
Addendum entered and electronically signed by Marcelo Patel MD 06/07/25 16:22:
[id number]
Original Note:
Today's Communication/Plan
-
-Bactrim DS BID x 10 days
-Bumex 1mg daily
-F/u bmp in 5 days with pcp/cards
-F/u PCP, Cards, Urology outpt
Assessment / Plan
Assessment / Plan
General: Well Developed, Well Nourished and No Apparent Distress
HEENT: NormoCephalic, Moist mucous membranes and Atraumatic
Respiratory: Clear
Cardiac: S1/S2 and Regular Rhythm; No Murmur or Rub
GI: Soft, Non Tender, Non Distended and Normal Bowel Sounds; No Organomegaly
: Left testicular tenderness
Musculoskeletal: No Clubbing, No Cyanosis and No Edema
Skin: No Rash
Neuro: Nonfocal/grossly intact
#left-sided epididymitis, not sexually active
# Urinary tract infection
# History of frequent UTIs
-Serratia Marcescens
-swelling with Cipro/Levo in the past
-Bactrim DS BID x 10 days
-Follows with Urology outpatient for frequent UTIs and is pending subspeciality eval
# Hyperglycemia secondary to infection
#Type 2 diabetes
-Insulin regimen
# Right ankle superficial wound
- Wound care, continue to monitor for diabetic foot infection
- Does not appear infected
- no fx on imaging
CAD
- Continue aspirin, statin
Permanent atrial fibrillation
- Continue metoprolol
- Continue Xarelto
Chronic HFpEF
-Increased Filling pressures on RHC 06/04
-Increase frequency of Bumex to 1mg daily
COPD on 2 L baseline a day, 3 L at night
Essential hypertension
- Continue lisinopril
Hypercholesteremia
Rheumatoid arthritis
- On methotrexate, leucovorin
- Continue prednisone
BPH
- Continue finasteride, tamsulosin
Chronic anemia
- Hemoglobin stable 10.9
Anxiety/depression
Diabetic neuropathy
- Continue duloxetine, nortriptyline,
Full code
DVT prophylaxis�Xarelto
Diabetic diet
More than 30 minutes spent in discharge including
Final examination of the patient
Summarizing hospital stay
Instructions for continuing care to all relevant caregivers
Preparation of discharge records, prescriptions, and referral forms
Total time spent (in minutes): 36
Anticipated Discharge: Today
Subjective/Interval History
-
Date of Service: June 06, 2025
no acute events overnight
Objective Data
-
Labs:
Laboratory Results
06/06/25
08:30
WBC 8.6
Hgb 9.9 L
Hct 32.1 L
Plt Count 222
Sodium 135
Potassium 4.5
Chloride 93 L
Carbon Dioxide 37 H
BUN 17
Creatinine 0.8
Glucose 204 H
Calcium 8.6
Vital Signs:
Vital Signs
Temp Pulse Resp BP Pulse Ox
98.0 F 90 18 125/83 98
06/06/25 07:55 06/06/25 11:05 06/06/25 07:55 06/06/25 11:05 06/06/25 08:49
I&O
06/05/25 06/06/25 06/07/25
06:59 06:59 06:59
Intake Total 480 / 480 1500 / 1500
Output Total 2700 / 2700 2305 / 2305
Balance -2220 / -2220 -805 / -805
Review of Systems
-
History Source: Patient
All other systems: Not reviewed unless documented
Physical Exam
-
General: Morbidly Obese
HEENT: Normocephalic
Respiratory: Clear to Auscultation
Cardiac: Regular Rhythm and S1/S2
GI: Soft, Nontender and Nondistended
Genito-urinary: No Costovertebral Tender
Skin: Warm
Neuro: AO x 3
Hematologic / Lymphatic: No Lymphadenopathy
Psych: Calm
Data Reviewed
-
Ultrasound: Report Reviewed by me
Medical Tests (Nuc Med, Echo etc): Report Reviewed by me
Labs: Labs Reviewed by me
--- NOTE | 2025-06-06 13:14 | W.DS.TRANS ---
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
-
Discharge Instructions:
Discharge Diagnosis/Procedures #left-sided epididymitis
Diet Low Cholesterol,Low Fat,Restrict fluids to 48 oz
Activity As tolerated
Blood Work will need BMP in 5 days with PCP and Cardiology
now that on Bactrim and Increased Bumex
Instructions:
Stand-Alone Forms:
Changes to Home Medications: Yes
Discharge Medications:
DC Medications w/original date entered in [facility]
prednisone 5 mg tablet 5 mg PO DAILY RA 12/23/14
tamsulosin 0.4 mg capsule 0.4 mg PO QPM Urinary Issue 12/23/14
atorvastatin 40 mg tablet (Lipitor) 40 mg PO QPM High Cholesterol 07/01/19
finasteride 5 mg tablet 5 mg PO DAILY Urinary Issue 07/22/19
omega-3 acid ethyl esters 1 gram capsule (Lovaza) 1 gm PO BID High Cholesterol 07/22/19
leucovorin calcium 10 mg tablet 10 mg PO DIRECTED rheumatoid arthritis 04/17/23
duloxetine 60 mg capsule,delayed release 60 mg PO QPM Depression 06/05/24
ascorbic acid (vitamin C) 500 mg tablet (Vitamin C) 500 mg PO QPM Supplement 09/10/24
methotrexate sodium 25 mg/mL injection solution 25 mg SC SA RA 09/10/24
rivaroxaban 20 mg tablet (Xarelto) 20 mg PO QPM Blood Clot Prevention/Tx 09/10/24
therapeutic multivitamin 1 tab PO QPM Supplement 09/10/24
Lactobac no.2-Bifidobac no.1-S. thermo 112.5 billion cell capsule (Visbiome) 1 cap PO BID Supplement 11/04/24
aspirin 81 mg tablet,delayed release 81 mg PO QPM Heart Disease/Condition 02/04/25
ergocalciferol (vitamin D2) 1,250 mcg (50,000 unit) capsule 1,250 mcg PO TH Supplement 02/04/25
fluticasone 250 mcg-salmeterol 50 mcg/dose blistr powdr for inhalation (Advair Diskus) 1 inh inhalation R BID Lung/Breathing Issues 02/04/25
gabapentin 800 mg tablet (Neurontin) 800 mg PO TID Neurological Condition 02/04/25
methenamine hippurate 1 gram tablet 1 g PO QPM Infection 02/04/25
Held on 06/06/25. Instructions: Resume on 06/16/25. can restart once bactrim course completed
metoprolol succinate 50 mg tablet,extended release 24 hr 25 mg PO DAILY Blood Pressure 02/04/25
tramadol 50 mg tablet 50 mg PO TID Pain 02/04/25
Metamucil 2 tsp PO DAILY Constipation 03/17/25
esomeprazole magnesium 20 mg capsule,delayed release (Nexium) 20 mg PO BID Gastrointestinal Issue 03/17/25
insulin glargine 100 unit/mL subcutaneous solution (Lantus U-100 Insulin) 48 unit SC HS Diabetes 03/17/25
insulin lispro 100 unit/mL subcutaneous solution (Humalog U-100 Insulin) 14 unit SC AC Diabetes 03/17/25
nortriptyline 25 mg capsule 25 mg PO BID Depression 03/17/25
bumetanide 1 mg tablet 1 mg PO DAILY 30 days #30 tabs 06/06/25
sulfamethoxazole 800 mg-trimethoprim 160 mg tablet 1 tab PO BID 10 days #19 tabs 06/06/25
Home Medication Changes
bumetanide 1 mg tablet 1 mg PO DAILY 30 days #30 tabs 06/06/25
sulfamethoxazole 800 mg-trimethoprim 160 mg tablet 1 tab PO BID 10 days #19 tabs 06/06/25
Pending Results: No
[2025-06-06] MEDS: NOVOLOG FLEXPEN-MODERATE RESISTANCE 7 UNITS SC (13:31)
[2025-06-06] MEDS: BACTRIM DS 800 MG/160 MG 1 TABLET PO (13:32)
--- NOTE | 2025-06-06 14:30 | CM ---
Chart reviewed. Patient will d/c home today
PT indicated OP PT vs home PT. Patient is current w/ OP PT, however, patient prefers home PT then resume OP PT at a later time
IMM verbally reviewed, copy provided, copy on chart
Spoke w/ daughter to update on patient d/c. Daughter mentioned expecting a call back from the nurse regarding a medication change as patient is allergic to the medication that is being recommended. Spoke w/ nurse, confirmed that medication has been
changed and will call the daughter to review this.
Updated María/[facility] on services
[facility]

Plan: Home w/ [facility]
[2025-06-06 15:15] VITALS: BP 103/68
== END 2025-06-06 16:05 | disposition home health service (06) | DRG 872 ==
LOC: 4 WEST ACU 18:26
PROVIDERS: Internal Medicine Cardiovascular Disease; Physician Assistant; ADMITTING PHYSICIAN Hospitalist; ATTENDING PHYSICIAN Internal Medicine; EMERGENCY PHYSICIAN Emergency Medicine; FAMILY PHYSICIAN Nurse Practitioner Adult Health
PROC: B2141ZZ Fluoroscopy of Right Heart using Low Osmolar Contrast (ICD-10-PCS; 2025-06-04)
PROC: B2111ZZ Fluoroscopy of Multiple Coronary Arteries using Low Osmolar Contrast (ICD-10-PCS; 2025-06-04)
PROC: 4A023N6 Measurement of Cardiac Sampling and Pressure, Right Heart, Percutaneous Approach (ICD-10-PCS; 2025-06-04)
DX: A41.9 Sepsis, unspecified organism (principal); N39.0 Urinary tract infection, site not specified; I48.21 Permanent atrial fibrillation; I50.32 Chronic diastolic (congestive) heart failure; J96.11 Chronic respiratory failure with hypoxia; Z87.891 Personal history of nicotine dependence; I25.10 Atherosclerotic heart disease of native coronary artery without angina pectoris; Z79.82 Long term (current) use of aspirin; Z79.899 Other long term (current) drug therapy; Z79.01 Long term (current) use of anticoagulants; I11.0 Hypertensive heart disease with heart failure; E78.00 Pure hypercholesterolemia, unspecified; M06.9 Rheumatoid arthritis, unspecified; F32.A Depression, unspecified; F41.9 Anxiety disorder, unspecified; N45.1 Epididymitis; D64.9 Anemia, unspecified; E11.40 Type 2 diabetes mellitus with diabetic neuropathy, unspecified; E11.65 Type 2 diabetes mellitus with hyperglycemia; J44.9 Chronic obstructive pulmonary disease, unspecified; Z79.4 Long term (current) use of insulin; Z87.440 Personal history of urinary (tract) infections; L89.322 Pressure ulcer of left buttock, stage 2
CPT/HCPCS: 73610; 76870; 80048; 80053; 81003; 81015; 82962; 85025; 85027; 86803; 87077; 87086; 87186; 93005; 93451; 93976; 94640; 96361; 96374; 97163; 99284; C1894

== ENCOUNTER 2025-07-02 06:21 | Day surgery (SDC) | payer MEDICARE, OTHER, SELFPAY ==
[2025-07-02] VITALS (14 sets, daily range): BP systolic 131–163; BP diastolic 77–114; BMI 38.5
[2025-07-02 07:03] LABS: Glucose - Point of Care 255 mg/dl (70-99)
[2025-07-02] MEDS: LOW STRENGTH ASPIRIN 81 MG PO (07:30)
--- NOTE | 2025-07-02 08:19 | ITS.CL.CATH ---
Statistical Financial Analyst - Catheterization
Cardiac Catheterization
Procedure Report:
CARDIAC CATHETERIZATION REPORT
Date of Procedure: 07/02/2025
Referring: Saturnino Angel D.O.
INDICATION: Abnormal preoperative stress test, known coronary artery disease.
PROCEDURE:
1. Left heart catheterization.
2. Coronary angiography.
A total of 13 minutes of procedural/moderate sedation was utilized. An independent medical equipment sales was present to assist with and help manage the patient's level of consciousness and physiologic status.
ACCESS:
1. 6 Bhutanese right radial artery using a modified Seldinger technique.
CATHETERS:
1. 5 Bhutanese JR4.
2. 5 Bhutanese JL 4.
HEMODYNAMIC DATA
Weight (kg): 136.1
AO (s/d/x, mmHg): 111/80/94
LV (s/x mmHg): 116/24
AV gradient (x, mmHg): 6
LEFT VENTRICULOGRAPHY: Not performed.
CORONARY ANGIOGRAPHY
Dominance: Right.
Left Main: Normal size, trifurcating vessel. There is no coronary artery disease.
LAD: Normal size vessel giving rise to several small diagonals. A patent stent is visible in the proximal vessel. There are minor luminal irregularities in the distal vessel.
Ramus: Normal size vessel which promptly bifurcates into 2 medium size vessel supplying the majority of the anterolateral and lateral wall. There is no coronary artery disease.
Circumflex: Normal size, nondominant vessel giving rise to several small obtuse marginals before terminating as a posterolateral arcade. There is no coronary artery disease.
RCA: Normal size, dominant vessel. There is no coronary artery disease.
INTERVENTION(S)
None.
Closure Device: Vascular band.
Radiation (mGy): 516.09
DAP (cm2.Gy): 48.4218
Fluoroscopy time (minutes): 2.9
CONCLUSIONS
1. Right dominant circulation with a patent stent in the proximal LAD and luminal irregularities in the distal LAD, but no occlusive coronary artery disease.
2. Severely elevated filling pressures (LVEDP = 24 mmHg at 136.1 kg).
3. False positive stress test.
RECOMMENDATIONS:
1. Expectant management after cardiac catheterization via right radial approach.
2. Limited weight bearing on the right wrist for one week.
3. Increase bumetanide to 2 mg every other day, alternating with 1 mg every other day given severity in filling pressure elevation. BMP in 1 week to monitor renal function.
4. GDMT as hemodynamics and allergies will tolerate (allergic to SGLT2i).
5. Continue aggressive secondary prevention with high-dose, high potency statin. Goal LDL <55.
6. Resume rivaroxaban for primary prevention of thromboembolic event from atrial fibrillation.
7. No further cardiovascular testing is indicated prior to spinal stimulator replacement.
Copy to: Saturnino Angel D.O., PARISA Baptiste
Saturnino Angel, , FACC, FACP
[2025-07-02] MEDS: BUMEX 2 MG PO (09:32)
== END 2025-07-02 11:15 | disposition home or self-care (01) ==
LOC: CATH 06:21
PROVIDERS: ATTENDING PHYSICIAN Internal Medicine Cardiovascular Disease; FAMILY PHYSICIAN Nurse Practitioner Adult Health
DX: I25.10 Atherosclerotic heart disease of native coronary artery without angina pectoris (principal); Z95.5 Presence of coronary angioplasty implant and graft; I48.91 Unspecified atrial fibrillation; I10 Essential (primary) hypertension; J44.9 Chronic obstructive pulmonary disease, unspecified; E78.00 Pure hypercholesterolemia, unspecified; K21.9 Gastro-esophageal reflux disease without esophagitis; E11.9 Type 2 diabetes mellitus without complications; Z79.82 Long term (current) use of aspirin; Z79.899 Other long term (current) drug therapy; Z79.4 Long term (current) use of insulin; Z79.52 Long term (current) use of systemic steroids
CPT/HCPCS: 99152; 82962; 93458; C1769; C1894; Q9967